=== PATIENT | female | born 1940 | race Caucasian/White ===

== ENCOUNTER 2017-12-16 13:17 | Emergency (ER) | payer MEDICARE ==
[~2017-12-16] VITALS: Ht 154.9 cm; Wt 49.9 kg
[~2017-12-16 13:17] MED LIST: GEMFIBROZIL600 MG PO; HYDROCHLOROTHIA25 MG PO; LEVOTHYROXINE88 MCG PO; LOVASTATIN20 MG PO; METOPROLOL TART25 MG PO; OMEPRAZOLE20 MG PO; POTASSIUM CHLO10 ME1 PO; SPIRONOLACTONE50 MG PO
== END 2017-12-16 14:54 | disposition home or self-care (01) ==
LOC: ED 13:17
DX: S86.911A Strain of unspecified muscle(s) and tendon(s) at lower leg level, right leg, initial encounter (principal); E11.9 Type 2 diabetes mellitus without complications; Z88.5 Allergy status to narcotic agent; Z79.899 Other long term (current) drug therapy; X50.9XXA Other and unspecified overexertion or strenuous movements or postures, initial encounter
CPT/HCPCS: 73560; 99283

== ENCOUNTER 2018-06-27 18:26 | Emergency (ER) | payer MEDICARE ==
[~2018-06-27] VITALS: Ht 154.9 cm; Wt 49.9 kg
[2018-06-27] MEDS ORDERED: CEPHALEXIN500 MG PO (19:13)
== END 2018-06-27 19:28 | disposition home or self-care (01) ==
LOC: ED 18:26
DX: T63.441A Toxic effect of venom of bees, accidental (unintentional), initial encounter (principal); E11.9 Type 2 diabetes mellitus without complications; Z88.5 Allergy status to narcotic agent; Z79.899 Other long term (current) drug therapy
CPT/HCPCS: 99282

== ENCOUNTER 2018-07-07 23:11 | Emergency (ER) | payer MEDICARE ==
--- OUTSIDE RECORDS SUMMARY | ~2018-07-07 | XMS | Encounter Summary ---
Demographics + + + | Address | [address] | | | [place] [address] | + + + | Home Phone | | + + + | Preferred Language | Unknown | + + + | Marital Status | | + + + | Latter Day Affiliation | 1077 | + + + | Race | Unknown | + + + | Ethnic Group | Unknown | + + + Author + + + | Author | [facility] | | | and [place] | + + + | Organization | [facility] | | | and [place] | + + + | Address | Unknown | + + + | Phone | Unavailable | + + + Support + + +---------+ + | Name | Relationship | Address | Phone | + + +---------+ + | Dudley,William | ECON | Unknown | | + + +---------+ + | Yohannes Adorno | ECON | Unknown | | + + +---------+ + Care Team Providers + +------+ + | Care Family Law Specialist Name | Role | Phone | + +------+ + | Yair Gleason MD | PCP | | + +------+ + Reason for Visit + + + | Reason | Comments | + + + | Follow-up, Office | | | Visit | | + + + Encounter Details +--------+ + + + + | Date | Type | Department | Care Team | Description | +--------+ + + + + | 06/15/ | Telephone | [facility] | Garth Vinson MD | Follow-up, Office | | 2018 | | HOSPITAL NEUROLOGY | [address] | Visit | | | | CLIN[address] | [place] | | | | | [address] [place], | [phone] | | | | | [place] [address] | | | | | | [phone] | | | +--------+ + + + [...] + +---------+ + | Alcohol Use | Drinks/We | oz/Week | Comments | | | ek | | | + + +---------+ + | No | | | | + + +---------+ + + + + | Sex Assigned at | Date Recorded | | | | + + + | Not on file | | + + + as of this encounter Plan of Treatment +--------+---------+ + + + | Date | Type | Specialty | Care Team | Description | +--------+---------+ + + + | 08/03/ | Office | Neurology | Garth Vinson MD | | | 2018 | Visit | | [address] | | | | | | [place] | | | | | | [address] | | | | | | | | +--------+---------+ + + + as of this encounter Visit Diagnoses Not on filein this encounter"
--- OUTSIDE RECORDS SUMMARY | ~2018-07-07 | XMS | Encounter Summary ---
Demographics + + + | Address | [address] | | | [place] [address] | + + + | Home Phone | | + + + | Preferred Language | Unknown | + + + | Marital Status | | + + + | Methodist Affiliation | 1077 | + + + | Race | Unknown | + + + | Ethnic Group | Unknown | + + + Author + + + | Author | [facility] | | | and [place] | + + + | Organization | [facility] | | [...] Team Providers + +------+ + | Care Order Administrator Name | Role | Phone | + [...] | | | [address] [place], | [phone] | | | | | [place] [address] | | | | | | [phone] | | | +--------+ + + + [...]
--- OUTSIDE RECORDS SUMMARY | ~2018-07-07 | XMS | Clinical Summary ---
Demographics + + + | Address | [address] | | | [place] [address] | + + + | Home Phone [...] Team Providers + +------+ + | Care Harness Brusher Name | Role | Phone | + +------+ + | Yair Gleason MD | PP | | + +------+ + Allergies + + + + + + | Active Allergy | Reactions | Severity | Noted | Comments | | | | | Date | | + + + + + + | Amoxicillin | | | | Other reaction(s): | | | | | | No Reaction | | | | | | Indicated | + + + + + + | Codeine | | Medium | 08/27/20 | Other reaction(s): | | | | | 14 | Other (See | | | | | | Comments) unknown | + + + + + + | Morphine | | | | Other reaction(s): | | | | | | No Reaction | | | | | | Indicated | + + + + + + | Sulfa Antibiotics | | | | Other reaction(s): | | | | | | No Reaction | | | | | | Indicated | + + + + + + Current Medications + + +--------+---------+------+------+-------+ | Prescription | Sig. | Disp. | Refills | Star | End | Statu | | | | | | t | Date | s | | | | | | Date | | | + + +--------+---------+------+------+-------+ | aspirin 325 mg EC | Take by mouth. | | | 06/ | | Activ | | tablet | | | | /20 | | e | | | | | | 13 | | | + + +--------+---------+------+------+-------+ | fish oil 1,000 mg | Take by mouth. | | | 10/3 | | Activ | | capsule | | | | /20 | | e | | | | | | 13 | | | + + +--------+---------+------+------+-------+ | | | | | 01/2 | | Activ | | hydroCHLOROthiazide | | | | 2/20 | | e | | 25 mg tablet | | | | 18 | | | + + +--------+---------+------+------+-------+ | levothyroxine | Take 88 mcg by | | | | | Activ | | (SYNTHROID) 88 mcg | mouth. | | | | | e | | tablet | | | | | | | + + +--------+---------+------+------+-------+ | lovastatin | | | | 12/2 | | Activ | | (MEVACOR) 20 mg | | | | 9/20 | | e | | tablet | | | | 17 | | | + + +--------+---------+------+------+-------+ | metFORMIN | | | | 01/0 | | Activ | | (GLUCOPHAGE) 500 mg | | | | 2/20 | | e | | tablet | | | | 18 | | | + + +--------+---------+------+------+-------+ | metoprolol | Take by mouth. | | | 08/0 | | Activ | | tartrate (LOPRESSOR) | | | | 8/20 | | e | | 25 mg tablet | | | | 12 | | | + + +--------+---------+------+------+-------+ | potassium chloride | | | | 12/2 | | Activ | | (KLOR-CON) 10 mEq | | | | 8/20 | | e | | CR tablet | | | | 17 | | | + + +--------+---------+------+------+-------+ | omeprazole | | | | 01/0 | | Activ | | (PRILOSEC) 20 mg | | | | 2/20 | | e | | capsule | | | | 18 | | | + + +--------+---------+------+------+-------+ | topiramate | Take 1 tablet by | 60 | 1 | 08/1 | | Activ | | (TOPAMAX) 25 mg | mouth 2 times daily. | tablet | | 5/20 | | e | | tabletIndications: | | | | 18 | | | | Complex partial | | | | | | | | seizures with | | | | | | | | consciousness | | | | | | | | impaired (HCC) | | | | | | | + + +--------+---------+------+------+-------+ | topiramate | TAKE ONE TABLET BY | 60 | 5 | 02/0 | 08 | Disco | | (TOPAMAX) 25 mg | MOUTH TWICE A DAY | tablet | | 03/15 | 03/15 | ntinu | | tabletIndications: | | | | 18 | 18 | ed | | Complex partial | | | | | | | | seizures with | | | | | | | | consciousness | | | | | | | | impaired ([facility]) | | | | | | | + + +--------+---------+------+------+-------+ Active Problems + + + | Problem | Noted Date | + + + | Osteoarthritis of right knee | 01/22/2018 | + + + | Diabetes mellitus, type 2 ([facility]) | 11/24/2017 | + + + | Hypothyroid | 11/24/2017 | + + + | Transient ischemic attack | 03/06/2017 | + + + | 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) | 09/12/2014 | + + + | GERD (gastroesophageal reflux disease) | 08/27/2014 | + + + | Seizure (HCC) [...] + + | 06/15/ | Telephone | | Garth Vinson MD | Follow-up, Office | | 2017 | | | | Visit | +--------+ + + + + | 06/10/ | Telephone | | Garth Vinson MD | Medication Related | | 2017 | | | | | +--------+ + + + + from [...] + + + | Blood Pressure | 132/62 | 01/22/20181448 PDT | + + + + | Pulse | 83 | 01/22/20181448 PDT | + + + + | Temperature | - | - | + + + + | Respiratory Rate | 16 | 01/22/20181448 PDT | + + + + | Oxygen Saturation | 99% | 01/22/20181448 PDT | + + + + | Inhaled Oxygen | - | - | | Concentration | | | + + + + | Weight | 52.2 kg (115 lb) | 01/22/20181448 PDT | + + + + | Height | 154.9 cm (5' 1") | 01/22/20181448 PDT | + + + + | Body Mass Index | 21.73 | 01/22/2018 1449 PDT | + + + + Plan of Treatment +--------+---------+ + + + | Date | Type | Specialty | Care Team | Description | +--------+---------+ + + + | 08/03/ | Office | | Garth Vinson MD | | | 2017 | Visit | | [address] | | | | | | [place] | | | | | | [address] | | | | | | | | +--------+---------+ + + + + + + + + | Health Maintenance | Due Date | Last Done | Comments | + + + + + | Diabetic Eye Exam | | | | | (Bi-Annually) | 8 | | | + + + + + | Diabetic Foot Exam | | | | | | 8 | | | + + + + + | Vaccine: | | | | | Dtap/Tdap/Td (1 - | 9 | | | | Tdap) | | | | + + + + + | Vaccine: Zoster (1 | | | | | of 2) | 0 | | | + + + + + | Vaccine: | | | | | Pneumococcal 65+ | 5 | | | | Low/Medium Risk (1 | | | | | of 2 - PCV13) | | | | + + + + + | Hemoglobin A1c Q3 | | 09/12/2014 | | | Months | 5 | | | + + + + + | Microalbumin | | | | | Screening | 7 | | | + + + + + | Vaccine: Influenza | | | | | (#1) | 8 | | | + + + + + | Colorectal Cancer | | | Postponed from | | Screening | 3 | | 1957 (Plan in | | (Colonoscopy) | | | Place) | + + + + + Results Not on filefrom Last 3 Months Insurance + +--------+ +--------+-------+---------+ | Payer | Benefi | Subscriber | Type | Phone | Address | | | t Plan | ID | | | | | | / | | | | | | | Group | | | | | + +--------+ +--------+-------+---------+ | [employer] | [employer] | [id number] | Medica | | | | | HEALTH | | re | | | | | MDCR | | | | | + +--------+ +--------+-------+---------+ + +--------+ +--------+ + + | Guarantor Name | Accoun | Relation to | Date | Phone | Billing Address | | | t Type | Patient | of | | | | | | | | | | + +--------+ +--------+ + + | CRISTINA DONNELLY | Person | Self | [birth year] | Home: | [address] | | | al/Fam | | 1941 | [phone] | [place] [address] | | | ava | | | [phone] | | + +--------+ +--------+ + +
--- OUTSIDE RECORDS SUMMARY | ~2018-07-07 | XMS | Clinical Summary ---
Demographics + + + | Address | [address] | | | [place] [address] | + + + | Home Phone | | + + + | Preferred Language | Unknown | + + + | Marital Status | | + + + | Holiness Affiliation | 1038 | + + + | Race | Unknown | + + + | Ethnic Group | Unknown | + + + Author + + + | Author | [facility] | + + + | Organization | [facility] | + + + | Address | Unknown | + + + | Phone | Unavailable | + + + Support + + + + + | Name | Relationship | Address | Phone | + + + + + | Cristina Donnelly | ECON | [address] | | | | | [place], [place] | | | | | [address] | | + + + + + Care Team Providers + +------+ + | Care Primary Operator Name | Role | Phone | [...] | + + + | Rash, drug; keramonera | 08/29/2014 | + + + | [...] | MA - GENERIC | MA-GEN | [id number] | Medica | | | | | [...] Person | Self | [birth year] | [address] [facility] | | | al/[place]ron | | 1941 | | [place], [place] | | | ava | | | | [address] | + +--------+ +--------+-------+ +"
--- OUTSIDE RECORDS SUMMARY | ~2018-07-07 | XMS | Clinical Summary ---
Demographics + + + | Address | [address] [facility] [facility] | | | [place] [address] | + + + | Home Phone | | + + + | Preferred Language | Unknown | + + + | Marital Status | | + + + | Baptist Affiliation | 1038 | + + + | Race | Unknown | + + + | Ethnic Group | Unknown | + + + Author + + + | Author | [facility] [employer] [facility] | + + + | Organization | [facility] | + + + | Address | Unknown | + + + | Phone | Unavailable | + + + Support + + + + + | Name | Relationship | Address | Phone | + + + + + | Cristina Donnelly | ECON | [address] | | | | | [place], [place] | | | | | [address] | | + + + + + Care Team Providers + +------+ + | Care Gravity Manager Name | Role | Phone | [...] | MA - GENERIC | MA-GEN | [id number] | Medica | | | | | [...] | Self | [birth year] | [address] [facility] | | | al/[place] | | 1941 | | [place], [place] | | | ava | | | | [phone] | + +--------+ +--------+-------+ +"
--- OUTSIDE RECORDS SUMMARY | ~2018-07-07 | XMS | Encounter Summary ---
Demographics + + + | Address | [address] | | | [place] [address] | + + + | Home Phone | | + + + | Preferred Language | Unknown | + + + | Marital Status | | + + + | Restoration Affiliation | 1077 | + + + | Race | Unknown | + + + | Ethnic Group | Unknown | + + + Author + + + | Author | [facility] | | | and [place] | + + + | Organization | [facility] | | | [...] Team Providers + +------+ + | Care Hang Gliding Instructor Name | Role | Phone | [...] [address] | | | | | [place] [address] | | | | | | [phone] | | | +--------+ + + + [...] [place] | | | | | | [address] | | | | | | | | +--------+---------+ + + + as of this encounter Visit Diagnoses + + | Diagnosis | + + | 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
--- OUTSIDE RECORDS SUMMARY | ~2018-07-07 | XMS | Encounter Summary ---
Demographics + + + | Address | [address] | | | [place] [address] | + + + | Home Phone [...] Providers + +------+ + | Care Retail Support Manager Name | Role | Phone | [...] [address] | | | | | [place] [address] | | | | | | [phone] | | | +--------+ + + + [...] [place] | | | | | | [address] | | | | | | | [...]
--- OUTSIDE RECORDS SUMMARY | ~2018-07-07 | XMS | Clinical Summary ---
Demographics + + + | Address | [address] | | | [place] [address] | + + + | Home Phone [...] Team Providers + +------+ + | Care Sports Marketing Coordinator Name | Role | Phone | [...] | | | | | | impaired ([facility]) | | | | | | | + + +--------+---------+------+------+-------+ Active Problems + + + | Problem | Noted Date | + + + | Osteoarthritis of right knee | 01/22/2018 | + + + | Diabetes mellitus, type 2 ([facility]) | 11/24/2017 | + + [...] [place] | | | | | | [address] | | | | | | | [...] | [employer] | MODA | [id number] | Medica | | | | | [...] al/Fam | | 1941 | [phone] | [place] [address] | | | ava | | | [phone] | | + +--------+ +--------+ + +
[~2018-07-07 23:11] MED LIST changes: +CEPHALEXIN500 MG PO
--- OUTSIDE RECORDS SUMMARY | 2018-07-07 23:14 | XMS ---
PreManage Notification: JHON DONNELLY Security Ip/Mosaic Technician Events No recent Security Events currently on file CRITERIA MET - ELZBIETA [facility] - 2 Visits in 30 Days CARE PROVIDERS ANGIE GLEASON [facility] 06/30/2018-Current LIANNA PHONE: [phone] Angie Gleason MD Primary Care Current PHONE: Unknown catie Case or Machinery Dismantler Current PHONE: Unknown Racheal has no Care Guidelines for this patient. E.D. VISIT COUNT (12 MO.) 3 [facility] TOTAL 3 NOTE: Visits indicate total known visits. ED/UCC VISIT TRACKING (12 MO.) 07/07/2018 23:11 [facility] [place] TYPE: Emergency COMPLAINT: - FALL 06/27/2018 18:26 [facility] [place] TYPE: Emergency COMPLAINT: - BEE STING- R ARM DIAGNOSES: - Toxic effect of venom of bees, accidental (unintentional), initial encounter - Other chcf (current) drug therapy - Allergy status to narcotic agent status - Other specified soft tissue disorders - Type 2 diabetes mellitus without complications 12/16/2017 13:[address] [facility] [place] TYPE: Emergency COMPLAINT: - R KNEE PAIN/NON INJURY DIAGNOSES: - Other exterminator (current) drug therapy - Allergy status to narcotic agent status - OTHER AND UNSPECIFIED OVREXRTN OR STRNOUS MOVE/PST - Other and unspecified overexertion or strenuous movements or postures, initial encounter - Type 2 diabetes mellitus without complications - Pain in right knee - Strain of unspecified muscle(s) and tendon(s) at lower leg level, right leg, initial encounter INPATIENT VISIT TRACKING (12 MO.) No inpatient visits to display in this time frame [id number]
[2018-07-07] MEDS ORDERED: ASPIRIN325 MG PO (23:46)
[2018-07-07] MEDS ORDERED: METFORMIN HCL500 MG PO (23:47)
[2018-07-08] MEDS ORDERED: NORCO 5-325 TA1 EACH PO (02:06)
== END 2018-07-08 02:35 | disposition home or self-care (01) ==
LOC: ED 23:11
DX: S09.90XA Unspecified injury of head, initial encounter (principal); S16.1XXA Strain of muscle, fascia and tendon at neck level, initial encounter; S00.01XA Abrasion of scalp, initial encounter; S30.0XXA Contusion of lower back and pelvis, initial encounter; E11.9 Type 2 diabetes mellitus without complications; Z88.5 Allergy status to narcotic agent; Z79.82 Long term (current) use of aspirin; Z79.899 Other long term (current) drug therapy; Z79.84 Long term (current) use of oral hypoglycemic drugs; W10.9XXA Fall (on) (from) unspecified stairs and steps, initial encounter
CPT/HCPCS: 70450; 72125; 72170; 96374; 96375; 99283; J2405; J3010

== ENCOUNTER 2019-01-04 22:36 | Emergency (ER) | payer MEDICARE ==
[~2019-01-04] VITALS: Ht 154.9 cm; Wt 49.9 kg
[~2019-01-04 22:36] MED LIST changes: +ASPIRIN325 MG PO; +METFORMIN HCL500 MG PO; +NORCO 5-325 TA1 EACH PO
--- OUTSIDE RECORDS SUMMARY | 2019-01-04 22:40 | XMS ---
PreManage Notification: JHON DONNELLY Security Quality Control Assessor Events No recent Security Events currently on file CRITERIA MET - ELZBIETA [facility] - 2 Visits in 30 Days CARE PROVIDERS Yair Gleason MD [facility] Current PHONE: Unknown Yair Gleason MD Primary Care Current PHONE: Unknown ortammy Case or Detention Worker Current PHONE: Unknown Racheal has no Care Guidelines for this patient. E.D. VISIT COUNT (12 MO.) 4 JARROD Ortega TOTAL 4 NOTE: Visits indicate total known visits. ED/UCC VISIT TRACKING (12 MO.) 01/04/2019 22:37 [facility] [place] TYPE: Emergency COMPLAINT: - POST FALL/ALT LOC 01/03/2019 11:44 [facility] [place] TYPE: Emergency COMPLAINT: - FALL 07/07/2018 23:11 [facility] [place] TYPE: Emergency COMPLAINT: - FALL DIAGNOSES: - Type 2 diabetes mellitus without complications - intermediate accountant (current) use of oral hypoglycemic drugs - Fall (on) (from) unspecified stairs and steps, initial encounter - Headache - Strain of muscle, fascia and tendon at neck level, initial encounter - intermediate accountant (current) use of aspirin - Unspecified injury of head, initial encounter - Other longterm (current) drug therapy - Allergy status to narcotic agent status - Abrasion of scalp, initial encounter - Contusion of lower back and pelvis, initial encounter 06/27/2018 18:26 [facility] [place] TYPE: Emergency COMPLAINT: - BEE STING- R ARM DIAGNOSES: - Toxic effect of venom of bees, accidental (unintentional), initial encounter - Other longterm (current) drug therapy - Allergy status to narcotic agent status - Other specified soft tissue disorders - Type 2 diabetes mellitus without complications INPATIENT VISIT TRACKING (12 MO.) No inpatient visits to display in this time frame [id number]
[2019-01-05] MEDS ORDERED: BACTRIM DS TAB1 EACH PO (04:26)
--- NOTE | 2019-01-05 07:53 | EKG ---
[facility] [address] [place] [address] Signed Normal sinus rhythm Normal ECG No previous ECGs available Confirmed by MARLEN MAX MD ([id number]) on 01/05/2019 7:53:07 AM Electronically Signed By: MARLEN MAX MD 01/05/19 0753 PATIENT NAME: JHON DONNELLY Electrocardiogram DATE OF : 38 PHYSICIAN: MARLEN MAX MD REPORT #: [id number] REPORT IS CONFIDENTIAL AND NOT TO BE RELEASED WITHOUT AUTHORIZATION
== END 2019-01-05 06:07 | disposition home or self-care (01) ==
LOC: ED 22:36
DX: S82.002A Unspecified fracture of left patella, initial encounter for closed fracture (principal); S00.83XA Contusion of other part of head, initial encounter; S80.01XA Contusion of right knee, initial encounter; N39.0 Urinary tract infection, site not specified; E11.9 Type 2 diabetes mellitus without complications; Z90.710 Acquired absence of both cervix and uterus; Z88.5 Allergy status to narcotic agent; Z79.899 Other long term (current) drug therapy; Z79.84 Long term (current) use of oral hypoglycemic drugs; Z79.82 Long term (current) use of aspirin; W18.30XA Fall on same level, unspecified, initial encounter
CPT/HCPCS: 71045; 73700; 80053; 81001; 84484; 85025; 93005; 93010; 96365; 99285-25; J0696

== ENCOUNTER 2019-04-24 19:46 | Emergency (ER) | payer MEDICARE ==
[~2019-04-24] VITALS: Ht 157.5 cm; Wt 49.4 kg
[~2019-04-24 19:46] MED LIST changes: +BACTRIM DS TAB1 EACH PO
== END 2019-04-24 22:41 | disposition home or self-care (01) ==
LOC: ED 19:46
DX: R56.9 Unspecified convulsions (principal); E11.9 Type 2 diabetes mellitus without complications; Z90.49 Acquired absence of other specified parts of digestive tract; Z90.710 Acquired absence of both cervix and uterus; Z79.82 Long term (current) use of aspirin; Z79.899 Other long term (current) drug therapy; Z79.84 Long term (current) use of oral hypoglycemic drugs
CPT/HCPCS: 70450; 80053; 81001; 83735; 85025; 99285-25; G0480

== ENCOUNTER 2019-06-21 12:13 | Emergency (ER) | payer MEDICARE ==
[~2019-06-21] VITALS: Ht 154.9 cm; Wt 47.6 kg
[2019-06-21] MEDS ORDERED: TROKENDI XR25 MG PO (12:25)
[2019-06-21] MEDS ORDERED: GLUCOPHAGE500 MG (12:25)
== END 2019-06-21 15:30 | disposition home or self-care (01) ==
LOC: ED 12:13
DX: T63.441A Toxic effect of venom of bees, accidental (unintentional), initial encounter (principal); Z91.030 Bee allergy status; Z88.5 Allergy status to narcotic agent
CPT/HCPCS: 96361; 96374; 96375; 96376; 99282-25; J1100; J1200; J2405; J7030

== ENCOUNTER 2019-09-12 15:07 | Emergency (ER) | payer MEDICARE ==
[~2019-09-12] VITALS: Ht 154.9 cm; Wt 47.6 kg
--- OUTSIDE RECORDS SUMMARY | ~2019-09-12 | XMS | Encounter Summary ---
Demographics + + + | Address | [address] | | | [place] [address] | + + + | Home Phone | | + + + | Preferred Language | Unknown | + + + | Marital Status | | + + + | Adventist Affiliation | 1077 | + + + | Race | Unknown | + + + | Ethnic Group | Unknown | + + + Author + + + | Author | [facility] | | | and [place] | + + + | Organization | [facility] | | | and [place] | + + + | Address | Unknown | + + + | Phone | Unavailable | + + + Support + + +---------+ + | Name | Relationship | Address | Phone | + + +---------+ + | William Buckner | ECON | Unknown | | + + +---------+ + | Yohannes Adorno | ECON | Unknown | | + + +---------+ + Care Team Providers + +------+ + | Care Leather Patcher Name | Role | Phone | + +------+ + | Yair Gleason MD | PCP | | + +------+ + Reason for Visit + + + | Reason | Comments | + + + | Medication Refill | | + + + Encounter Details +--------+ + + + + | Date | Type | Department | Care Team | Description | +--------+ + + + + | 07/13/ | Telephone | [facility] | Garth Vinson MD | Medication Refill | | 2017 | | HOSPITAL NEUROLOGY | [address] | | | | | CLIN[address] | [place] | | | | | [address] [place], | [address] | | | | | [place] [address] | | | | | | [phone] | | | +--------+ + + + [...] on file | | + + + + + + + | Job Start Date | Occupation | Industry | + + + + | Not on file | Not on file | Not on file | + + + + + + + + | Travel History | Travel Start | Travel End | + + + + + + | No recent travel history available. | + + documented as of this encounter Plan of Treatment +--------+---------+ + + + | Date | Type | Specialty | Care Team | Description | +--------+---------+ + + + | 11/11/ | Office | Neurology | Kathie, | | | 2020 | Visit | | [address] | | | | | | [address] [place], | | | | | | [place] [address] | | | | | | [phone] | | | | | | | | +--------+---------+ + + + | 05/08/ | Office | Neurology | Garth Vinson MD | | | 2020 | Visit | | [address] | | | | | | [place] | | | | | | [address] | | | | | | | | +--------+---------+ + + + documented as of this encounter Visit Diagnoses + + | Diagnosis | + + | 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
--- OUTSIDE RECORDS SUMMARY | ~2019-09-12 | XMS | Encounter Summary ---
Demographics + + + | Address | [address] | | | [place] [address] | + + + | Home Phone | | + + + | Preferred Language | Unknown | + + + | Marital Status | | + + + | Scientologist Affiliation | 1077 | + + + | Race | Unknown | + + + | Ethnic Group | Unknown | + + + Author + + + | Author | [facility] | | | and [place] | + + + | Organization | [facility] | | [...] Team Providers + +------+ + | Care Tent Finisher Name | Role | Phone | + +------+ + PCP | Unavailable | + +------+ + Encounter Details +--------+ + + + + | Date | Type | Department | Care Team | Description | +--------+ + + + + | 03/10/ | Hospital | [facility] | Garth Vinson MD | | | 2011 | Encounter | [facility] | [address] | | | | | [address] | [place], [place] | | | | | [place] | [address] | | | | | [address] | | | | | | [phone] | | | +--------+ + + + [...] | Neurology | Kathie, | | | 2019 | Visit | | [address] | | | | | [address] [place], | | | | | | [place] [address] | | | | | | [phone] | | | | | | | | +--------+---------+ + + + | 05/08/ | Office | Neurology | Garth Vinson MD | | | 2019 | Visit | | [address] | | | | | | [place], [place] | | | | | | [address] | | | | | | | | +--------+---------+ + + + documented as of this encounter Visit Diagnoses Not on filedocumented in this encounter"
--- OUTSIDE RECORDS SUMMARY | ~2019-09-12 | XMS | Encounter Summary ---
Demographics + + + | Address | [address] | | | [place] [address] | + + + | Home Phone | | + + + | Preferred Language | Unknown | + + + | Marital Status | | + + + | Hindu Affiliation | 1077 | + + + | Race | Unknown | + + + | Ethnic Group | Unknown | + + + Author + + + | Author | [facility] | | | and [place] | + + + | Organization | [facility] | | | and [...] Team Providers + +------+ + | Care Supervisor Carpenters Name | Role | Phone | + +------+ + PCP | Unavailable | + +------+ + Encounter Details +--------+ + + + + | Date | Type | Department | Care Team | Description | +--------+ + + + + | 08/17/ | Hospital | [facility] | Garth Vinson MD | | | 2012 | Encounter | [facility] | [address] | | | | | [facility] [address] | [place], [place] | | | | | [address] [facility], | [address] | | | | | [place] [address] | | | | | | [phone] | | | +--------+ + + + [...] | | | | | [address] [place], | | | | | | [place] [address] | | | | | | [phone] | | | | | | | | +--------+---------+ + + + | 05/08/ | Office | Neurology | Garth Vinson MD | | | 2019 | Visit | | [address] | | | | | | [place] | | | | | | [address] | | | | | | | | +--------+---------+ + + + documented as of this encounter Visit Diagnoses Not on filedocumented in this encounter"
--- OUTSIDE RECORDS SUMMARY | ~2019-09-12 | XMS | Encounter Summary ---
Demographics + + + | Address | [address] | | | [place] [address] | + + + | Home Phone | | + + + | Preferred Language | Unknown | + + + | Marital Status | | + + + | Restorationist Affiliation | 1077 | + + + | Race | Unknown | + + + | Ethnic Group | Unknown | + + + Author + + + | Author | [facility] | | | and [place] | + + + | Organization | [facility] | | | [...] Team Providers + +------+ + | Care Healthcare Administration Internship Name | Role | Phone | + +------+ + PCP | Unavailable | + +------+ + Encounter Details +--------+ + + + + | Date | Type | Department | Care Team | Description | +--------+ + + + + | 03/09/ | Hospital | [facility] | Garth Vinson MD | | | 2012 | Encounter | HOSPITAL RESPIRATORY | [address] | | | | | THERAPY [address] | [place] | | | | | [place] | [address] | | | | | [address] | | | | | | [phone] | | | +--------+ + + + [...] | | | | | | [place] [address] | | | | | | [phone] | | | | | | | | +--------+---------+ + + + | 05/08/ | Office | Neurology | Garth Vinson MD | | | 2019 | Visit | | [address] | | | | | | [place], [place] | | | | | | [address] | | | | | | | | +--------+---------+ + + + documented as of this encounter Visit Diagnoses Not on filedocumented in this encounter"
--- OUTSIDE RECORDS SUMMARY | ~2019-09-12 | XMS | Encounter Summary ---
Demographics + + + | Address | [address] | | | [place] [address] | + + + | Home Phone | | + + + | Preferred Language | Unknown | + + + | Marital Status | | + + + | Buddhist Affiliation | 1077 | + + + | Race | Unknown | + + + | Ethnic Group | Unknown | + + + Author + + + | Author | [facility] | | | and [place] | + + + | Organization | [facility] | | [...] Team Providers + +------+ + | Care Apparatus Operator Name | Role | Phone | + +------+ + PCP | Unavailable | + +------+ + Encounter Details +--------+ + + + + | Date | Type | Department | Care Team | Description | +--------+ + + + + | 11/02/ | Hospital | [facility] | [place], | | | 2014 | Encounter | [facility] | Hiro Mariano, | | | | | [facility] [address] | [address] | | | | | [address] [facility], | [facility], [place] | | | | | [place] [address] | [address] | | | | | [phone] | [phone] | | | | | | | | +--------+ + + + [...] | | | | | | [place] [address] | | | | | | [phone] | | | | | | | | +--------+---------+ + + + | 05/08/ | Office | Neurology | Garth Vinson MD | | | 2019 | Visit | | [address] | | | | | | [place] | | | | | | [address] | | | | | | | | +--------+---------+ + + + documented as of this encounter Visit Diagnoses Not on filedocumented in this encounter"
--- OUTSIDE RECORDS SUMMARY | ~2019-09-12 | XMS | Encounter Summary ---
Demographics + + + | Address | [address] | | | [place] [address] | + + + | Home Phone | | + + + | Preferred Language | Unknown | + + + | Marital Status | | + + + | Yazidi Affiliation | 1077 | + + + | Race | Unknown | + + + | Ethnic Group | Unknown | + + + Author + + + | Author | [facility] | | | and [place] | + + + | Organization | [facility] | | | and [...] Team Providers + +------+ + | Care Critical Power Install Technician Name | Role | Phone | + [...] | | | | [address] [facility], | [address] | | | | | [place] [address] | | | | | | [phone] | | | +--------+ + + + [...] | | | | | | [place] [address] | | | | | | [phone] | | | | | | | | +--------+---------+ + + + | 05/08/ | Office | Neurology | Garth Vinson MD | | | 2019 | Visit | | [address] | | | | | | [place] | | | | | | [id number] | | | | | | | | +--------+---------+ + + + documented as of this encounter Visit Diagnoses Not on filedocumented in this encounter"
--- OUTSIDE RECORDS SUMMARY | ~2019-09-12 | XMS | Encounter Summary ---
Demographics + + + | Address | [address] | | | [place] [address] | + + + | Home Phone | | + + + | Preferred Language | Unknown | + + + | Marital Status | | + + + | Mosque Affiliation | 1077 | + + + | Race | Unknown | + + + | Ethnic Group | Unknown | + + + Author + + + | Author | [facility] | | | and [place] | + + + | Organization | [facility] | | | [...] Team Providers + +------+ + | Care Firewall Engineer Name | Role | Phone | + [...] | | | [place], [place] | [address] | | | | | [address] | [phone] | | | | | [phone] | | | +--------+ + + + [...] | | | | | | [place] [address] | | | | | | [phone] | | | | | | | | +--------+---------+ + + + | 05/08/ | Office | Neurology | Garth Vinson MD | | | 2019 | Visit | | [address] | | | | | | [place] | | | | | | [address] | | | | | | | | +--------+---------+ + + + documented as of this encounter Visit Diagnoses Not on filedocumented in this encounter"
--- OUTSIDE RECORDS SUMMARY | ~2019-09-12 | XMS | Encounter Summary ---
Demographics + + + | Address | [address] | | | [place] [address] | + + + | Home Phone | | + + + | Preferred Language | Unknown | + + + | Marital Status | | + + + | Rastafari Affiliation | 1077 | + + + | Race | Unknown | + + + | Ethnic Group | Unknown | + + + Author + + + | Author | [facility] | | | and [place] | + + + | Organization | [facility] | | | [...] Team Providers + +------+ + | Care Nurse Outreach Case Manager Name | Role | Phone | + +------+ + | Yair Gleason MD | PCP | | + +------+ + Encounter Details +--------+ + + + + | Date | Type | Department | Care Team | Description | +--------+ + + + + | 07/21/ | Hospital | [facility] | Yair Gleason, | Low back pain, | | 2018 | Encounter | HOSPITAL XRAY [address] | MD [address] | unspecified back | | | | [address] [place] | [place], [place] | pain laterality, | | | | [place], [place] | [address] | unspecified | | | | [address] | [phone] | chronicity, with | | | | [phone] | | sciatica presence | | | | | | unspecified | +--------+ + + + + Social [...] +---------+ + + | topiramate | Take 1 tablet by | 120 | 0 | 07/20/20 | | | (TOPAMAX) 25 mg | mouth 2 times daily | tablet | | 18 | 8 | | tabletIndications: | for 30 days. 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) | | | | | | + + + +---------+ + + | traMADol (ULTRAM) | | | 0 | 07/21/20 | | | 50 mg tablet | | | | 18 | 9 | + + + +---------+ + + [...] | | | | | | [place] [address] | | | | | | [phone] | | | | | | | | +--------+---------+ + + + | 05/08/ | Office | Neurology | Garth Vinson MD | | | 2019 | Visit | | [address] | | | | | | [place], [place] | | | | | | [address] | | | | | | | | +--------+---------+ + + + documented as of this encounter Procedures + +--------+ + + + | Procedure Name | Priori | Date/Time | Associated Diagnosis | Comments | | | ty | | | | + +--------+ + + + | XR HIP LEFT 2-3 | Routin | 07/21/2018 | Low back pain, | Results for this | | VIEWS | e | 12:30 PM | unspecified back | procedure are in the | | | | PDT | pain laterality, | results section. | | | | | unspecified | | | | | | chronicity, with | | | | | | sciatica presence | | | | | | unspecified | | + +--------+ + + + | XR LUMBAR SPINE 2 [place] | Routin | 07/21/2018 | Low back pain, | Results for this | | 3 VW | e | 12:30 PM | unspecified back | procedure are in the | | | | PDT | pain laterality, | results section. | | | | | unspecified | | | | | | chronicity, with | | | | | | sciatica presence | | | | | | unspecified | | + +--------+ + + + documented in this encounter Results XR Lumbar Spine 2 or 3 Vw (07/21/2018 12:30 PM PDT) + + | Specimen | + + | | + + + + + | Impressions | Performed At | + + + | IMPRESSION: 1. No definite acute finding identified. 2. The bones | [facility] | | are diffusely demineralized. 3. Mild apparent endplate irregularity | | | multiple lumbar levels which may relate to the angle at which the | | | patient is imaged versus mild age indeterminate endplate compression | | | fracture. 4. Facet degenerative changes lower lumbar spine. | | | Dictated by: Conrado Benz | | + + + + + + | Narrative | Performed At | + + + | EXAMINATION: XR LUMBAR SPINE 2 OR 3 VW HISTORY: LOWER BACK | [facility] | | PAIN COMPARISON STUDY: Abdomen pelvis 03/11/2013. FINDINGS: | | | The bones are diffusely demineralized. Mild endplate irregularity | | | noted at L1 through L4. Facet sclerosis present L L3-4, L4-5, L5-S1. 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 The sacroiliac | | | joints are not widened. 5 bilateral hip prostheses partially imaged. | | | Surgical clips are noted right abdomen most commonly related to | | | gallbladder removal. | | + + + + -+ | Procedure Note | + -+ | Dileep, Rad Results In - 07/21/2018 12:51 PM PDT EXAMINATION:XR LUMBAR SPINE 2 OR 3 | | VWHISTORY:LOWER BACK PAINCOMPARISON STUDY:Abdomen pelvis 03/11/2013.FINDINGS:The bones | | are diffusely demineralized. Mild endplate irregularity noted at L1 through L4. Facet | | sclerosis present L L3-4, L4-5, L5-S1.Atherosclerosis aorta without aneurysm seen.The | | sacroiliac joints are not widened. 5 bilateral hip prostheses partially imaged. | | Surgical clips are noted right abdomen most commonly related to gallbladder | | removal.IMPRESSION: IMPRESSION:1. No definite acute finding identified.2. The bones are | | diffusely demineralized.3. Mild apparent endplate irregularity multiple lumbar levels | | which may relate to the angle at which the patient is imaged versus mild age | | indeterminate endplate compression fracture.4. 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 | | | |The sacroiliac joints are not widened. 5 bilateral hip prostheses partially imaged. Surgi yazan clips are noted right abdomen most commonly related to gallbladder removal. | | | |IMPRESSION: | |IMPRESSION: | |1. No definite acute finding identified. | |2. The bones are diffusely demineralized. | |3. Mild apparent endplate irregularity multiple lumbar levels which may relate to the angle at which the patient is imaged versus mild age indeterminate endplate compression fracture. | |4. Facet degenerative changes lower lumbar spine. | | | |Dictated by: Conrado Benz | | | | | + -+ + +---------+ + + | Performing | Address | City/State/Zipcode | Phone Number | | Organization | | | | + +---------+ + + | [facility] | | | | + +---------+ + + XR Hip Left 2-3 Views (07/21/2018 12:30 PM PDT) + + | Specimen | + + | | + + + + + | Impressions | Performed At | + + + | IMPRESSION: 1. No acute finding. 2. The bones are diffusely | [facility] | | demineralized. 3. Facet degenerative changes lower lumbar spine. 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 No periprostatic lucencies are | | | seen. The prostheses are non-cemented. The bones are diffusely | | | demineralized. The sacroiliac joints and symphysis pubis are not | | | widened. Facet degenerative changes are present L4-5, L5-S1. If | | | concern for acute fracture remains clinically follow-up images in 10 | | | to 14 days recommended. . | | + + + + + | Procedure Note | + + | Dileep, Rad Results In - 07/21/2018 12:52 PM PDT EXAMINATION:XR HIP LEFT 2-3 | | VIEWSHISTORY:LOWER BACK PAINCOMPARISON STUDY:Left hip 01/09/2010FINDINGS:Bilateral | | bipolar hip prostheses are present. No periprostatic lucencies are seen. The | | prostheses are non-cemented.The bones are diffusely demineralized. The sacroiliac | | joints and symphysis pubis are not widened.Facet degenerative changes are present L4-5, | | L5-S1.If concern for acute fracture remains clinically follow-up images in 10 to 14 days | | recommended. .IMPRESSION: IMPRESSION:1. No acute finding.2. The bones are diffusely | | demineralized.3. 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 No periprostatic lucencies are seen. The pr ostheses are non-cemented. | | | |The bones are diffusely demineralized. The sacroiliac joints and symphysis pubis are not w idened. | | | |Facet degenerative changes are present L4-5, L5-S1. | |If concern for acute fracture remains clinically follow-up images in 10 to 14 days recommen ded. . | | | |IMPRESSION: | |IMPRESSION: | |1. No acute finding. | |2. The bones are diffusely demineralized. | |3. Facet degenerative changes lower lumbar spine. | | | |Dictated by: Conrado Benz | | | | | + + + +---------+ + + | Performing | Address | City/State/Zipcode | Phone Number | | Organization | | | | + +---------+ + + | [facility] | | | | + +---------+ + + documented in this encounter Visit Diagnoses + + | Diagnosis | + + | Low back pain, unspecified back pain laterality, unspecified chronicity, with sciatica | | presence unspecified | + + documented in this encounter"
--- OUTSIDE RECORDS SUMMARY | ~2019-09-12 | XMS | Encounter Summary ---
Demographics + + + | Address | [address] | | | [place] [address] | + + + | Home Phone | | + + + | Preferred Language | Unknown | + + + | Marital Status | | + + + | Baptist Affiliation | 1077 | + + + | Race | Unknown | + + + | Ethnic Group | Unknown | + + + Author + + + | Author | [facility] | | | and [place] | + + + | Organization | [facility] | | | [...] Team Providers + +------+ + | Care Manager Field Investigations Name | Role | Phone | + +------+ + | Yair Gleason MD | PCP | | + +------+ + Reason for Visit + + + | Reason | Comments | + + + | Medication Related | | + + + Encounter Details +--------+ + + + + | Date | Type | Department | Care Team | Description | +--------+ + + + + | 07/20/ | Telephone | [facility] | Garth Vinson MD | Medication Related | | 2018 | | HOSPITAL NEUROLOGY | [address] | | | | | CLIN[address] | [place] | | | | | [address] [place], | [address] | | | | | [place] [address] | | | | | | [phone] | | | +--------+ + + + [...] | | | | | | [place] [address] | | | | | | [phone] | | | | | | | | +--------+---------+ + + + | 05/08/ | Office | Neurology | Garth Vinson MD | | | 2020 | Visit | | [address] | | | | | | [place] | | | | | | [address] | | | | | | | [...]
--- OUTSIDE RECORDS SUMMARY | ~2019-09-12 | XMS | Encounter Summary ---
Demographics + + + | Address | [address] | | | [place] [address] | + + + | Home Phone | | + + + | Preferred Language | Unknown | + + + | Marital Status | | + + + | Islam Affiliation | 1077 | + + + | Race | Unknown | + + + | Ethnic Group | Unknown | + + + Author + + + | Author | [facility] | | | and [place] | + + + | Organization | [facility] | | | and [place] | + + + | Address | Unknown | + + + | Phone | Unavailable | + + + Support + + +---------+ + | Name | Relationship | Address | Phone | + + +---------+ + | Williamaleax Buckner | ECON | Unknown | | + + +---------+ + | Yohannes Kyree | ECON | Unknown | | + + +---------+ + Care Team Providers + +------+ + | Care Pest Locator Name | Role | Phone | + +------+ + PCP | Unavailable | + +------+ + Encounter Details +--------+ + + + + | Date | Type | Department | Care Team | Description | +--------+ + + + + | 09/12/ | Hospital | [facility] | Garth Vinson MD | | | 2014 | Encounter | [facility] | [address] | | | | | [facility] [address] | [place], [place] | | | | | [address] [facility], | [address] | | | | | [place] [address] | | | | | | [phone] | | | +--------+ + + + [...] | | | | | | [place] [address] | | | | | | [phone] | | | | | | | | +--------+---------+ + + + | 05/08/ | Office | Neurology | Garth Vinson MD | | | 2019 | Visit | | [address] | | | | | | [place] | | | | | | [address] | | | | | | | | +--------+---------+ + + + documented as of this encounter Visit Diagnoses Not on filedocumented in this encounter"
--- OUTSIDE RECORDS SUMMARY | ~2019-09-12 | XMS | Encounter Summary ---
Demographics + + + | Address | [address] | | | [place] [address] | + + + | Home Phone | | + + + | Preferred Language | Unknown | + + + | Marital Status | | + + + | Confucianism Affiliation | 1077 | + + + | Race | Unknown | + + + | Ethnic Group | Unknown | + + + Author + + + | Author | [facility] | | | and [place] | + + + | Organization | [facility] | | | [...] Team Providers + +------+ + | Care Sterilization Tech Name | Role | Phone | + +------+ + PCP | Unavailable | + +------+ + Encounter Details +--------+ + + + + | Date | Type | Department | Care Team | Description | +--------+ + + + + | 03/26/ | Hospital | [facility] | Garth Vinson MD | | | 2012 | Encounter | HOSPITAL RESPIRATORY | [address] | | | | | THERAPY [address] | [place] | | | | | [place] | [address] | | | | | [address] | | | | | | [phone] | | | +--------+ + + + [...] | | | | | | [place] [address] | | | | | | [phone] | | | | | | | | +--------+---------+ + + + | 05/08/ | Office | Neurology | Garth Vinson MD | | | 2019 | Visit | | [address] | | | | | | [place], [place] | | | | | | [address] | | | | | | | | +--------+---------+ + + + documented as of this encounter Visit Diagnoses Not on filedocumented in this encounter"
--- OUTSIDE RECORDS SUMMARY | ~2019-09-12 | XMS | Encounter Summary ---
Demographics + + + | Address | [address] | | | [place] [address] | + + + | Home Phone | | + + + | Preferred Language | Unknown | + + + | Marital Status | | + + + | Yazidism Affiliation | 1077 | + + + [...] Team Providers + +------+ + | Care Electrical Engineer Mep Name | Role | Phone | + +------+ + PCP | Unavailable | + +------+ + Encounter Details +--------+ + + + + | Date | Type | Department | Care Team | Description | +--------+ + + + + | 11/02/ | Hospital | [facility] | [place], | | | 2014 | Encounter | [facility] | Hiro Mariano, | | | | | MEDICAL CL[facility] [address] | [address] | | | | | [address] [facility], | [facility], [place] | | | | | [place] [address] | [address] | | | | | [phone] | [phone] | | | | | | | [...] | | | | | | [place] [address] | | | | | | [phone] | | | | | | | | +--------+---------+ + + + | 05/08/ | Office | Neurology | Garth Vinson MD | | | 2019 | Visit | | [address] | | | | | | [place] | | | | | | [address] | | | | | | | | +--------+---------+ + + + documented as of this encounter Visit Diagnoses Not on filedocumented in this encounter"
--- OUTSIDE RECORDS SUMMARY | ~2019-09-12 | XMS | Encounter Summary ---
Demographics + + + | Address | [address] | | | [place] [address] | + + + | Home Phone | | + + + | Preferred Language | Unknown | + + + | Marital Status | | + + + | Amish Affiliation | 1077 | + + + [...] Team Providers + +------+ + | Care Hearth Feeder Name | Role | Phone | + [...] | | | [place], [place] | [address] | | | | | [address] | [phone] | | | | | [phone] | | | +--------+ + + + [...] | | | | | | [place] [address] | | | | | | [phone] | | | | | | | | +--------+---------+ + + + | 05/08/ | Office | Neurology | Garth Vinson MD | | | 2019 | Visit | | [address] | | | | | | [place] | | | | | | [address] | | | | | | | | +--------+---------+ + + + documented as of this encounter Visit Diagnoses Not on filedocumented in this encounter"
--- OUTSIDE RECORDS SUMMARY | ~2019-09-12 | XMS | Encounter Summary ---
Demographics + + + | Address | [address] | | | [place] [address] | + + + | Home Phone | | + + + | Preferred Language | Unknown | + + + | Marital Status | | + + + | Mandaeism Affiliation | [id number] | + + + | Race | Unknown | + + + | Ethnic Group | Unknown | + + + Author + + + | Author | [facility] | | | and [place] | + + + | Organization | [facility] | | | and [place] | + + + | Address | Unknown | + + + | Phone | Unavailable | + + + Support + + +---------+ + | Name | Relationship | Address | Phone | + + +---------+ + | William Dudley | ECON | Unknown | | + + +---------+ + | Yohannes Adorno | ECON | Unknown | | + + +---------+ + Care Team Providers + +------+ + | Care Core Winder Machine Operator Name | Role | Phone | + +------+ + | Yair Gleason MD | PCP | | + +------+ + Reason for Referral Self-referral (Routine) +--------+ + + + + + | Status | Reason | Specialty | Diagnoses / | Referred By | Referred To | | | | | Procedures | Contact | Contact | +--------+ + + + + + | Closed | Specialty | Physical | Diagnoses | Vinson, | [facility] | | | Services | Therapy | Gait | Garth Carrillo, | HOSPITAL | | | Required | | disorder | MD [address] | PHYSICAL | | | | | | [address], | TH[address]AP[address] | | | | | | [address] | [place] | | | | | | [place], [place] | [place], [place] | | | | | | [address] | [address] | | | | | | Phone: | Phone: | | | | | | [phone] | [phone] | | | | | | Fax: | Fax: | | | | | | [phone] | [phone] | +--------+ + + + + + Reason for Visit + + + | Reason | Comments | + + + | Follow-up | seizures/strokes | + + + Encounter Details +--------+---------+ + + + | Date | Type | Department | Care Team | Description | +--------+---------+ + + + | 05/18/ | Office | [facility] | Garth Vinson MD | Seizure (HCC) | | 2019 | Visit | [facility] | [address] | (Primary Dx); Gait | | | | CLINIC [address] | [place]IE [address]HE[place] | disorder; Complex | | | | DR [address], | [address] | partial seizures | | | | [place] [address] | | with consciousness | | | | [phone] | | impaired ([facility]LY [facility]); | | | | | | Neurologic gait | | | | | | disorder | +--------+---------+ + + + Social History + +-------+ [...] + + documented as of this encounter Last Filed Vital Signs + + + + + | Vital Sign | Reading | Time Taken | Comments | + + + + + | Blood Pressure | 138/70 | 05/18/2019 3:32 PM | | | | | PDT | | + + + + + | Pulse | 80 | 05/18/2019 3:32 PM | | | | | PDT | | + + + + + | Temperature | - | - | | + + + + + | Respiratory Rate | 20 | 05/18/2019 3:32 PM | | | | | PDT | | + + + + + | Oxygen Saturation | 99% | 05/18/2019 3:32 PM | | | | | PDT | | + + + + + | Inhaled Oxygen | - | - | | | Concentration | | | | + + + + + | Weight | 47.2 kg (104 lb) | 05/18/2019 3:32 PM | | | | | PDT | | + + + + + | Height | 156.2 cm (5' 1.5") | 05/18/2019 3:32 PM | | | | | PDT | | + + + + + | Body Mass Index | 19.33 | 05/18/2019 3:32 PM | | | | | PDT | | + + + + + documented in this encounter Patient Instructions Patient Instructions Garth Vinson MD - 05/18/2019 3:30 PM PDTFormatting of this note mi ght be different from the original. Patient Instructions [facility] Dr. Garth Vinson, Neurologist Date:05/18/2019 Name:Cristina Lili Buckner :..1940 Please schedule next follow up appt with Dr. 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 magazines, perform word find exercises such as cross word puzz le, and scrabble, other puzzle games like CloudPayu, Mahjong. Play computer/mobile applications such as TierPM and [employer] Continue topamax Gave medical education to avoid sleep deprivation, alcohol, stimulant, or any type of head trauma Any Questions please call ARIANA Chapin or Dr. Vinson at [facility] FallPrevention Falls often occur due to slipping, tripping or losing your balance. Millions of people fall every year and injure themselves.Here are ways to reduce your risk of falling again. Think about your fall, was there anything that caused your fall that can be fixed, remov ed, or replaced? Make your home safe by keeping walkways clear of objects you may trip over, such as elec tric cords. Use non-slip pads under rugs. Don't use area rugs or small throw rugs. Use non-slip mats in bathtubs and showers. Install handrails and lights on staircases. The handrails should be on both sides of the stairs. Don't walk in poorly lit areas. Don't stand on chairs or wobbly ladders. Use caution when reaching overhead or looking upward.This position can cause a loss of balance. Be sure your shoes fit properly, have non-slip bottoms and are in good condition. Wear shoes both inside and out. Don't go barefoot or wear slippers. Be cautious when going up and down stairs, curbs, and when walking on uneven sidewalks. If your balance is poor, consider using a cane or walker. If your fall was related to alcohol use, stop or limit alcohol intake. If your fall was related to use of sleeping medicines, talk to your healthcare provider about this.You may need to reduce your dosage at bedtime if you awaken during the night to go to the bathroom. To reduce the need for nighttime bathroom trips: ? Don't drink fluids for several hours before going to bed ? Empty your bladder before going to bed ? Men can keep a urinal at the bedside Stay as active as you can. Balance, flexibility, strength, and endurance all come from e xercise. They all play a role in preventing falls. Ask your healthcare provider which types of activity are right for you. Get your vision checked on a regular basis. If you have pets, know where they are before you stand up or walk so you don't trip over them. Use night lights. Go over all your medicines with a pharmacist or other healthcare provider to see if any of them could make you more likely to fall. Date Last Reviewed: 01/25/201819998962-1318 [employer]. [address] [place] [address], [place] [address]. All righ ts reserved. This information is not intended as a substitute for professional medical care. Always follow your healthcare professional's instructions. Partial Seizures: Know What to Do Because seizures may happen at any time, it helps to be prepared. This is true even ifmed icine usually keeps your seizures under control. Start by telling those you live and work wi th about your health condition. Make sure they know what to do if a seizure happens. Steps for your protection Most partial seizures last from a few seconds to a few minutes. During that time, those malathi und you should help keep you safe. What those witnessing the seizure should do is listed bel ow. What to do Seek medical attention right awayif you: Are hurt during the seizure Begin choking Have a seizure that lasts more than 5 minutes Have multiple seizures in a row Don't fully regain consciousness after the seizure is over Otherwise, they should do the following: Move any hard or sharp objects away from you. Turn you on your left side if you seem unconscious. Talk to you afterward to relieve your confusion. Note how long the seizure lasted. Note what you were doing before, during, and after the seizure. What NOT to do It is important thatthey don't do the following: Don't try to stop any jerking or twisting. Don't put anything in the mouth. Don't try to hold the tongue. Prepare family, friends, and coworkers It may seem awkward to talk to others about seizures. But telling family, friends, and cowo rkers about your seizures can help them react to a seizure in a way that will help and not hurt you. Describe to them what happens before, during, and after you have a seizure. Exp gwendolyn what they should and should not do. Date Last Reviewed: 02/24/201819990371-4476 [employer]. [address] [place] [address], [place] [address]. All righ ts reserved. This information is not intended as a substitute for professional medical care. Always follow your healthcare professional's instructions. Epilepsy: Safety During a Seizure Safety during a seizure Let family and friends know what to expect and how to react when youhave a seizure. This helps keep them calm and you safe. All seizures should be treated with care. But seizures th at cause you to lose consciousness (tonic-clonic seizures) require more attention. Think abo ut wearing a medical alert bracelet in case you are not around family members. This can aler t other people to your condition. Here are some tips for loved ones. What to know Seizures typically last less than 3 minutes, but it will feel like it is longer.People re cover safely from most seizures. During a tonic-clonic seizure, the person may appear to sto p breathing or turn slightly blue. This may be scary for you, but try to stay calm. Afterwar d, the person may be tired, confused, and achy. He or she may need to sleep for several hour s to fully recover. What to do During any seizure, stay with the personuntil it is over. Note the time when the seizure starts and ends.Don t try to stop the seizure. During a tonic-clonic seizure, also do th e following: Move hard or sharp objects out of the way. Lay the person on a flat surface and turn them on their side. Place a flat, soft object under their head. Don t try to restrain the person. Both of you could get hurt. Don t put anything in the person s mouth. The person can t swallow their tongue, a nd you risk breaking their teeth or being bitten. Don t give the person medicines during a seizure, unless you ve been trained by a [place] [place]. Speak quietly to the person as they recover. There is no need to call 911 if the person has a well-known cause of the seizures (such as epilepsy) and the seizure is very typical.If you are not sure or the person's condition is not known, call 911. Call 911 if any of the following occur: The seizure lasts longer than 5 minutes The person is not conscious between 2 seizures Several seizures happen in a row These things could mean the person has status epilepticus. This is a medical emergency. Hos pital treatment for this condition includes benzodiazepine medicines given by IV (intravenou s). A form of this medicine (a rectal diazepam gel) may be prescribed for at-home use. Other causes of seizures and situations that need immediate medical care include: The person has diabetes The person has a braininfection The person has heat exhaustion The person is Poisoning is known or suspected The person has low blood sugar A seizure happens after or during a high fever A head injury immediately after or within a few days after the injury happened Multiple seizures happen in a short period of time The person stops breathing A seizure that happens in water The person hit their head during a seizure and becomes difficult to wake up, is vomiting ,or complains of blurry vision It is the first time a seizure happens It is differentthan the typical seizuresfor that person The person is difficult to arouse after the seizure Alcohol or drug abuse Alcohol or drug withdrawal Date Last Reviewed: 08/27/201719991598-1916 [employer]. [address] [place] [address]. All [facility] ts reserved. This information is not intended as a substitute for professional medical care. Always follow your healthcare professional's instructions. What is Peripheral Neuropathy? Peripheral neuropathy symptoms often start in the toes and move up the foot. Peripheral neuropathy is a disease of the nerves. It most often startsin your feet and ma y also eventually affect the arms. It can affect sensory, motor, or both functions. It may c ause pain or make you unable to sense pain. Sometimes, weakness occurs as well. Lack of pain and weakness makes you more likely to injure yourself without knowing it. But you can learn ways to protect your feet from injury. When nerves are diseased Nerves in your feet carry signals to your brain. Your brain reads those signals and interpr ets them as sensations. When nerves in your feet are diseased, signals may be disrupted or c hanged.The result may be a lack of feeling (numbness)in your feet or other symptoms, suc h as tingling or pain. Symptoms mask pain Symptoms of peripheral neuropathy usually start in your toes. The symptoms slowly spread up your feet and legs as more nerve is affected. These symptoms may decrease sensation in your feet or mask pain. Without pain, you may not notice a cut or even a bone fracture. Cuts may become infected. Fractures may heal poorly and lead to foot deformity. Common causes of peripheral neuropathy Some common causes of peripheral neuropathy include: Diabetes or other endocrine disorders Toxins (such as alcohol) Nutritional deficiencies (such as Vitamin B-12) Kidney disease Injury Repetitive stress (such as carpal tunnel syndrome) Autoimmune disease Cancer and tumors Chemotherapy cancer treatment Arthritis Advanced age Neurological disorders Infection Diagnosis and treatment Diagnosis of peripheral neuropathy includes a complete history and physical exam. Tests i nclude blood tests and imaging often help find the cause. Special nerve tests are often help ful including nerve conduction velocity studies (NCV), and electromyography (EMG). NCV helps find evidence of poor conduction of nerve signals. EMG helps tell whether symptoms are caus ed by muscle or nerve disorders. Treatment focuses on treating the underlying disorder and treating the symptoms usingmedi cines, injections, TENS (transcutaneous electrical nerve stimulation), acupuncture, massage, and others. Date Last Reviewed: 09/26/201719997608-6365 [employer]. [address] [place] [address]. All [facility] ts reserved. This information is not intended as a substitute for professional medical care. Always follow your healthcare professional's instructions. Treating Peripheral Neuropathy Peripheral neuropathy is a disease of the nerves. It most often startsin your feet andm ay alsoeventuallyaffect the arms.Itmay cause pain ormay make you unable to sense p ain.Sometimes, weakness occurs as well.Lack of painand weaknessmakesyou more likel y to injure yourself without knowing it. Learn ways to protect your feet. Check your feet daily for wounds you may not have felt. Av oid michaels by testing bath water with your elbow before stepping in. Also,always wear shoes to prevent injury. Regular foot care If you have foot numbness, you may not notice cutting yourself while trimming your nails. T o prevent problems, your healthcare provider may ask you to visit for nail and callus trimmi ng. See your provider for foot care as often as suggested. Check your feet daily Catch problems early by checking your feet every day for changes. Look at the top and botto m of your feet, your heels, and between your toes. It may help to use a mirror. If this is h reginald, ask someone to check for you. Call your healthcare provider if you notice a wound, ulce ration, ingrown nail, or any changes in your feet. This includes increased heat, swelling, n umbness, tingling, pain, and redness. Wear proper footwear Always wear shoes and socks, even indoors. Ask your healthcare provider how to choose the r ight shoe. After buying shoes, bring them to your doctor to be checked for proper fit. Take new shoes off every hour or so to check for red pressure areas on your feet. Each time you p ut on your shoes, use your fingers first to feel inside for foreign objects. Common causes of peripheral neuropathy Some common causes of peripheral neuropathy include: Diabetes or other endocrine disorders Toxins (such as alcohol) Nutritional deficiencies (such as Vitamin B-12) Kidney disease Injury Repetitive stress (such as carpal tunnel syndrome) Autoimmune disease Cancer and tumors Chemotherapy Arthritis Advanced age Heredity Infection Diagnosis and treatment Diagnosis of peripheral neuropathy includes a complete history and physical exam. Lab manuel ts including blood work and imaging often help determine the cause. Special nerve tests are often helpful including nerve conduction velocity studies (NCV), and electromyography (EMG). Treatment focuses on treating the underlying disorder and treating symptoms through the use of medicines, injections, TENS (transcutaneous electrical nerve stimulation), acupuncture, massage, and other methods. Date Last Reviewed: 10/27/201719997220-6654 [employer]. [address] [place] [address]. All [facility] ts reserved. This information is not intended as a substitute for professional medical care. Always follow your healthcare professional's instructions. documented in this encounter Progress Notes Garth Vinson MD - 05/18/2019 3:30 PM PDT Patient: Cristina Buckner Medical Record: [id number] Date of Services: 05/18/2019 Referring Doctor: Yair Gleason MD Chief Complaint: Seizures History of Present Illness: Miss Buckner was a 78-year-old right-handed lady, seen for neurologic evaluation, treated for seizures, complex partial with secondary generalization, presently receiving Topamax 25 mg by mouth twice a day. Her last seizure was in March 2019 and is been doing well and we'll pe rform a Topamax level today. She was given medical education to avoid sleep deprivation, al cohol, stimulants, or type of head trauma. In addition, she has evidence of peripheral neuropathy, likely due to her underlying diabet es, control and medications and diet with last hemoglobin A1c 4.7, performed on March 2019. NCS/EMG of the lower extremities with be performed to determine the severity of her underly ing peripheral neuropathy. She has clear evidence of gait disorder and advised PT/OT and ga it training at [facility] in [facility]. 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 Patient was advised to call for increasing sinus symptoms or seizures. Review of Systems: Denies headache, earache, nasal catarrh, diplopia, blurring of vision, d ysphagia, odynophagia, sore throat, neck masses, hearing loss, chest pain, palpitations, gabby rtness of breath, cough, hemoptysis, abdominal pain, diarrhea, constipation, bowel or bladde r dysfunction, hematuria, dysuria, lymphadenopathies, echhymoses, rashes, and homicidal or s uicidal ideations. Present Medication: Current Outpatient Medications Medication Sig Dispense Refill aspirin 325 mg EC tablet Take by mouth. cefdinir (OMNICEF) 300 mg capsule cephalexin (KEFLEX) 500 mg capsule ciprofloxacin (CIPRO) 500 mg tablet fish oil 1,000 mg capsule Take by mouth. gemfibrozil (LOPID) 600 mg tablet hydroCHLOROthiazide 25 mg tablet levothyroxine (SYNTHROID) 88 mcg tablet Take 88 mcg by mouth. lovastatin (MEVACOR) 20 mg tablet metFORMIN (GLUCOPHAGE) 500 mg tablet metoprolol tartrate (LOPRESSOR) 25 mg tablet Take by mouth. omeprazole (PRILOSEC) 20 mg capsule potassium chloride (KLOR-CON) 10 mEq CR tablet PROAIR HFA 108 (90 Base) MCG/ACT inhaler spironolactone (ALDACTONE) 25 mg tablet sulfamethoxazole-trimethoprim (BACTRIM DS) 800-160 mg per tablet topiramate (TOPAMAX) 25 mg tablet Take 1 tablet by mouth 2 times daily for 30 days. 60 tablet 11 traMADol (ULTRAM) 50 mg tablet No current facility-administered medications for this visit. Patient's Allergies: Allergies Allergen Reactions Codeine Other reaction(s): Other (See Comments) unknown Amoxicillin Other reaction(s): No Reaction Indicated Morphine Other reaction(s): No Reaction Indicated Sulfa Antibiotics Other reaction(s): No Reaction Indicated Neurological Examination: Vitals: 05/18/19 1532 BP: 138/70 Pulse: 80 Resp: 20 PainSc: 0 - No pain MENTAL STATUS: The patient is awake, alert, and oriented to time, place, and person. [facility]. Memory, attention, comprehension, and general fund of knowledge are intact. CRANIAL NERVES: Funduscopy revealed distinct disc margins. There are no exudates or hemor rhages noted. Pupils are 3-4 mm, equal and reactive to light and accommodation. Extraocular muscle movements are intact. There are no visual field cuts. There is no nystagmus. There is no facial asymmetry. Facial sensation is intact. Palate elevates symmetrically. Streng th in the trapezius and sternocleidomastoid muscles is normal. Tongue is midline on protrusi on. MOTOR EXAMINATION: Strength is 5/5 throughout. Tone is normal. SENSORY EXAMINATION: impaired poor perception and vibratory sense at the toes with decreas ed light touch in a stocking distribution up to the ankles bilaterally DEEP TENDON REFLEXES: trace to absent throughout PLANTAR RESPONSES: Downgoing bilaterally GAIT: wide-based stance, unable to tandem gait, Romberg was negative CEREBELLAR EXAMINATION: There is no dysmetria on [id number] test. 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 Garth Vinson, Neurologist Date:05/18/2019 Name:Cristina Pearson Dudley :..1940 Please schedule next follow up appt with Dr. 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 magazines, perform word find exercises such as cross word puzz le, and scrabble, other puzzle games like [employer], Mahjong. Play computer/mobile applications such as TierPM and [employer] Continue topamax Gave medical education to avoid sleep deprivation, alcohol, stimulant, or any type of head trauma Schedule for NCS/EMG of the lower extremities, ordered on her last visit Any Questions please call ARIANA Chapin or Dr. Vinson at [facility] FallPrevention Falls often occur due to slipping, tripping or losing your balance. Millions of people fall every year and injure themselves.Here are ways to reduce your risk of falling again. Think about your fall, was there anything that caused your fall that can be fixed, remov ed, or replaced? Make your home safe by keeping walkways clear of objects you may trip over, such as elec tric cords. Use non-slip pads under rugs. Don't use area rugs or small throw rugs. Use non-slip mats in bathtubs and showers. Install handrails and lights on staircases. The handrails should be on both sides of the stairs. Don't walk in poorly lit areas. Don't stand on chairs or wobbly ladders. Use caution when reaching overhead or looking upward.This position can cause a loss of balance. Be sure your shoes fit properly, have non-slip bottoms and are in good condition. Wear shoes both inside and out. Don't go barefoot or wear slippers. Be cautious when going up and down stairs, curbs, and when walking on uneven sidewalks. If your balance is poor, consider using a cane or walker. If your fall was related to alcohol use, stop or limit alcohol intake. If your fall was related to use of sleeping medicines, talk to your healthcare provider about this.You may need to reduce your dosage at bedtime if you awaken during the night to go to the bathroom. To reduce the need for nighttime bathroom trips: ? Don't drink fluids for several hours before going to bed ? Empty your bladder before going to bed ? Men can keep a urinal at the bedside Stay as active as you can. Balance, flexibility, strength, and endurance all come from e xercise. They all play a role in preventing falls. Ask your healthcare provider which types of activity are right for you. Get your vision checked on a regular basis. If you have pets, know where they are before you stand up or walk so you don't trip over them. Use night lights. Go over all your medicines with a pharmacist or other healthcare provider to see if any of them could make you more likely to fall. Date Last Reviewed: 01/25/201819993268-6620 [employer]. [address] [place] [address]. All righ ts reserved. This information is not intended as a substitute for professional medical care. Always follow your healthcare professional's instructions. Partial Seizures: Know What to Do Because seizures may happen at any time, it helps to be prepared. This is true even ifmed icine usually keeps your seizures under control. Start by telling those you live and work wi th about your health condition. Make sure they know what to do if a seizure happens. Steps for your protection Most partial seizures last from a few seconds to a few minutes. During that time, those malathi und you should help keep you safe. What those witnessing the seizure should do is listed bel ow. What to do Seek medical attention right awayif you: Are hurt during the seizure Begin choking Have a seizure that lasts more than 5 minutes Have multiple seizures in a row Don't fully regain consciousness after the seizure is over Otherwise, they should do the following: Move any hard or sharp objects away from you. Turn you on your left side if you seem unconscious. Talk to you afterward to relieve your confusion. Note how long the seizure lasted. Note what you were doing before, during, and after the seizure. What NOT to do It is important thatthey don't do the following: Don't try to stop any jerking or twisting. Don't put anything in the mouth. Don't try to hold the tongue. Prepare family, friends, and coworkers It may seem awkward to talk to others about seizures. But telling family, friends, and cowo rkers about your seizures can help them react to a seizure in a way that will help and not hurt you. Describe to them what happens before, during, and after you have a seizure. Exp gwendolyn what they should and should not do. Date Last Reviewed: 02/24/201819991268-5446 [employer]. [address] [place] [address], [place] [address]. All righ ts reserved. This information is not intended as a substitute for professional medical care. Always follow your healthcare professional's instructions. Epilepsy: Safety During a Seizure Safety during a seizure Let family and friends know what to expect and how to react when youhave a seizure. This helps keep them calm and you safe. All seizures should be treated with care. But seizures th at cause you to lose consciousness (tonic-clonic seizures) require more attention. Think abo ut wearing a medical alert bracelet in case you are not around family members. This can aler t other people to your condition. Here are some tips for loved ones. What to know Seizures typically last less than 3 minutes, but it will feel like it is longer.People re cover safely from most seizures. During a tonic-clonic seizure, the person may appear to sto p breathing or turn slightly blue. This may be scary for you, but try to stay calm. Afterwar d, the person may be tired, confused, and achy. He or she may need to sleep for several hour s to fully recover. What to do During any seizure, stay with the personuntil it is over. Note the time when the seizure starts and ends.Don t try to stop the seizure. During a tonic-clonic seizure, also do th e following: Move hard or sharp objects out of the way. Lay the person on a flat surface and turn them on their side. Place a flat, soft object under their head. Don t try to restrain the person. Both of you could get hurt. Don t put anything in the person s mouth. The person can t swallow their tongue, a nd you risk breaking their teeth or being bitten. Don t give the person medicines during a seizure, unless you ve been trained by a [place] [place]. Speak quietly to the person as they recover. There is no need to call 911 if the person has a well-known cause of the seizures (such as epilepsy) and the seizure is very typical.If you are not sure or the person's condition is not known, call 911. Call 911 if any of the following occur: The seizure lasts longer than 5 minutes The person is not conscious between 2 seizures Several seizures happen in a row These things could mean the person has status epilepticus. This is a medical emergency. Hos pital treatment for this condition includes benzodiazepine medicines given by IV (intravenou s). A form of this medicine (a rectal diazepam gel) may be prescribed for at-home use. Other causes of seizures and situations that need immediate medical care include: The person has diabetes The person has a braininfection The person has heat exhaustion The person is Poisoning is known or suspected The person has low blood sugar A seizure happens after or during a high fever A head injury immediately after or within a few days after the injury happened Multiple seizures happen in a short period of time The person stops breathing A seizure that happens in water The person hit their head during a seizure and becomes difficult to wake up, is vomiting ,or complains of blurry vision It is the first time a seizure happens It is differentthan the typical seizuresfor that person The person is difficult to arouse after the seizure Alcohol or drug abuse Alcohol or drug withdrawal Date Last Reviewed: 08/27/201719998680-1641 [employer] [address] [place] [address]. All righ ts reserved. This information is not intended as a substitute for professional medical care. Always follow your healthcare professional's instructions. What is Peripheral Neuropathy? Peripheral neuropathy symptoms often start in the toes and move up the foot. Peripheral neuropathy is a disease of the nerves. It most often startsin your feet and ma y also eventually affect the arms. It can affect sensory, motor, or both functions. It may c ause pain or make you unable to sense pain. Sometimes, weakness occurs as well. Lack of pain and weakness makes you more likely to injure yourself without knowing it. But you can learn ways to protect your feet from injury. When nerves are diseased Nerves in your feet carry signals to your brain. Your brain reads those signals and interpr ets them as sensations. When nerves in your feet are diseased, signals may be disrupted or c hanged.The result may be a lack of feeling (numbness)in your feet or other symptoms, suc h as tingling or pain. Symptoms mask pain Symptoms of peripheral neuropathy usually start in your toes. The symptoms slowly spread up your feet and legs as more nerve is affected. These symptoms may decrease sensation in your feet or mask pain. Without pain, you may not notice a cut or even a bone fracture. Cuts may become infected. Fractures may heal poorly and lead to foot deformity. Common causes of peripheral neuropathy Some common causes of peripheral neuropathy include: Diabetes or other endocrine disorders Toxins (such as alcohol) Nutritional deficiencies (such as Vitamin B-12) Kidney disease Injury Repetitive stress (such as carpal tunnel syndrome) Autoimmune disease Cancer and tumors Chemotherapy cancer treatment Arthritis Advanced age Neurological disorders Infection Diagnosis and treatment Diagnosis of peripheral neuropathy includes a complete history and physical exam. Tests i nclude blood tests and imaging often help find the cause. Special nerve tests are often help ful including nerve conduction velocity studies (NCV), and electromyography (EMG). NCV helps find evidence of poor conduction of nerve signals. EMG helps tell whether symptoms are caus ed by muscle or nerve disorders. Treatment focuses on treating the underlying disorder and treating the symptoms usingmedi cines, injections, TENS (transcutaneous electrical nerve stimulation), acupuncture, massage, and others. Date Last Reviewed: 09/26/201719996310-3587 [employer] [address] [place] [address]. All righ ts reserved. This information is not intended as a substitute for professional medical care. Always follow your healthcare professional's instructions. Treating Peripheral Neuropathy Peripheral neuropathy is a disease of the nerves. It most often startsin your feet andm ay alsoeventuallyaffect the arms.Itmay cause pain ormay make you unable to sense p ain.Sometimes, weakness occurs as well.Lack of painand weaknessmakesyou more likel y to injure yourself without knowing it. Learn ways to protect your feet. Check your feet daily for wounds you may not have felt. Av oid michaels by testing bath water with your elbow before stepping in. Also,always wear shoes to prevent injury. Regular foot care If you have foot numbness, you may not notice cutting yourself while trimming your nails. T o prevent problems, your healthcare provider may ask you to visit for nail and callus trimmi ng. See your provider for foot care as often as suggested. Check your feet daily Catch problems early by checking your feet every day for changes. Look at the top and botto m of your feet, your heels, and between your toes. It may help to use a mirror. If this is h reginald, ask someone to check for you. Call your healthcare provider if you notice a wound, ulce ration, ingrown nail, or any changes in your feet. This includes increased heat, swelling, n umbness, tingling, pain, and redness. Wear proper footwear Always wear shoes and socks, even indoors. Ask your healthcare provider how to choose the r ight shoe. After buying shoes, bring them to your doctor to be checked for proper fit. Take new shoes off every hour or so to check for red pressure areas on your feet. Each time you p ut on your shoes, use your fingers first to feel inside for foreign objects. Common causes of peripheral neuropathy Some common causes of peripheral neuropathy include: Diabetes or other endocrine disorders Toxins (such as alcohol) Nutritional deficiencies (such as Vitamin B-12) Kidney disease Injury Repetitive stress (such as carpal tunnel syndrome) Autoimmune disease Cancer and tumors Chemotherapy Arthritis Advanced age Heredity Infection Diagnosis and treatment Diagnosis of peripheral neuropathy includes a complete history and physical exam. Lab manuel ts including blood work and imaging often help determine the cause. Special nerve tests are often helpful including nerve conduction velocity studies (NCV), and electromyography (EMG). Treatment focuses on treating the underlying disorder and treating symptoms through the use of medicines, injections, TENS (transcutaneous electrical nerve stimulation), acupuncture, massage, and other methods. Date Last Reviewed: 10/27/201719993770-1666 [employer]. [address] [place] [address], [place] [id number]. All [facility] ts reserved. This information is not intended as a substitute for professional medical care. Always follow your healthcare professional's instructions. Garth Vinson MD05/18/201915:49 Electronically signed NOTE: Part of this report was transcribed using voice recognition software. Every effort was made to ensure accuracy. However, inadvertent computerize sas analyst errors may be present documented in this enc ounter Plan of Treatment +--------+---------+ + + + | Date | Type | Specialty | Care Team | Description | +--------+---------+ + + + | 11/11/ | Office | Neurology | Kathie, | | | 2019 | Visit | | [address] | | | | [address] [place] | | | | | | [place] [address] | | | | | | [phone] | | | | | | | | +--------+---------+ + + + | 05/08/ | Office | Neurology | Garth Vinson MD | | | 2019 | Visit | | [address] | | | | | | [place] | | | | | | [address] | | | | | | | | +--------+---------+ + + + + + +--------+ + + | Name | Type | Priori | Associated Diagnoses | Order Schedule | | | | ty | | | + + +--------+ + + | Aniabl | Outpatient | Routin | Gait disorder | Ordered: 05/18/2019 | | Hospital Physical | Referral | e | | | | Therapy, External - | | | | | | AMB Referral | | | | | + + +--------+ + + documented as of this encounter Results Topiramate Level (05/18/2019 4:21 PM PDT) + + + + + + | Component | Value | Ref Range | Performed | Pathologist | | | | | At | Signature | + + + + + + | Topiramate, | 1.6Comment: | mcg/mL | REFERENCE | | | Serum | THERAPEUTIC RANGE for | | LAB [facility] | | | | Topiramate: | | [facility] | | | | Dose (mg) Peak | | - JAEGER | | | | (mcg/mL) Trough | | AQUINO | | | | (mcg/mL) | | | | | | 100 | | | | | | 6.5-9.2 | | | | | | 4.5-6.6 | | | | | | 200 | | | | | | 12.0-16.0 | | | | | | 8.0-12.0 | | | | | | 400 | | | | | | 20.0-30.0 | | | | | | 14.0-20.0 This test was | | | | | | developed and its | | | | | | analytical performance | | | | | | characteristics have | | | | | | been determined by [facility] | | | | | | [facility] | | | | | | [place] | | | | | | [place]. It has not | | | | | | been cleared or approved | | | | | | by the USFood and Drug | | | | | | Administration. This | | | | | | assay has been validated | | | | | | pursuant to the CLIA | | | | | | regulations and is used | | | | | | for clinical purposes. @ | | | | | | Test Performed By: | | | | | | [facility] | | | | | | [facility] José Miguel | | | | | | Bryon Alejo M.D., | | | | | | Ph.D., Laboratory | | | | | | Director [id number] | | | | | | [facility] | | | | | | [place] [address] | | | | | | CLIA #[id number] | | | | + + + + + + + + | Specimen | + + | Blood | + + + + + + + | Performing | Address | City/State/Zipcode | Phone Number | | Organization | | | | + + + + + | REFERENCE LAB | [id number] [facility] | [place], [place] | | | [facility] - | | [address] | | | [place] | | | | + + + + + documented in this encounter Visit Diagnoses + + | Diagnosis | + + | Seizure (HCC) - Primary Other convulsions | + + | Gait disorder Abnormality of gait | + + | 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
--- OUTSIDE RECORDS SUMMARY | ~2019-09-12 | XMS | Encounter Summary ---
Demographics + + + | Address | [address] | | | [place] [address] | + + + | Home Phone | | + + + | Preferred Language | Unknown | + + + | Marital Status | | + + + | Yazidism Affiliation | 1077 | + + + | Race | Unknown | + + + | Ethnic Group | Unknown | + + + Author + + + | Author | [facility] | | | and [place] | + + + | Organization | [facility] | | | [...] Team Providers + +------+ + | Care Gearcase Assembler Name | Role | Phone | + +------+ + PCP | Unavailable | + +------+ + Encounter Details +--------+ + + + + | Date | Type | Department | Care Team | Description | +--------+ + + + + | 10/12/ | Hospital | [facility] | Cole Adidson | | | 2012 | Encounter | H[facility] XRAY [address] | [address] | | | | | [address] | [place] | | | | | [place] | [place], [place] | | | | | [address] | [address] | | | | | [phone] | [phone] | | | | | | | [...] | | | | | | [place] [address] | | | | | | [phone] | | | | | | | | +--------+---------+ + + + | 05/08/ | Office | Neurology | Garth Vinson MD | | | 2019 | Visit | | [address] | | | | | | [place] | | | | | | [address] | | | | | | | | +--------+---------+ + + + documented as of this encounter Visit Diagnoses Not on filedocumented in this encounter"
--- OUTSIDE RECORDS SUMMARY | ~2019-09-12 | XMS | Encounter Summary ---
Demographics + + + | Address | [address] | | | [place] [address] | + + + | Home Phone | | + + + | Preferred Language | Unknown | + + + | Marital Status | | + + + | Sabianist Affiliation | 1077 | + + + | Race | Unknown | + + + | Ethnic Group | Unknown | + + + Author + + + | Author | [facility] | | | and [place] | + + + | Organization | [facility] | | | [...] Team Providers + +------+ + | Care Wellness Assistant Name | Role | Phone | + +------+ + PCP | Unavailable | + +------+ + Encounter Details +--------+ + + + + | Date | Type | Department | Care Team | Description | +--------+ + + + + | 03/16/ | Hospital | [facility] | Yair Gleason, | | | 2013 | Encounter | H[facility] XRAY [address] | [address] | | | | | [address] [address] | [place], [place] | | | | | [place] | [address] | | | | | [address] | [phone] | | | | | [phone] | | | +--------+ + + + [...] | | | | | | [place] [address] | | | | | | [phone] | | | | | | | | +--------+---------+ + + + | 05/08/ | Office | Neurology | Garth Vinson MD | | | 2019 | Visit | | [address] | | | | | | [place] | | | | | | [phone] | | | | | | | | +--------+---------+ + + + documented as of this encounter Visit Diagnoses Not on filedocumented in this encounter"
--- OUTSIDE RECORDS SUMMARY | ~2019-09-12 | XMS | Encounter Summary ---
Demographics + + + | Address | [address] | | | [place] [address] | + + + | Home Phone | | + + + | Preferred Language | Unknown | + + + | Marital Status | | + + + | Anabaptist Affiliation | 1077 | + + + [...] Team Providers + +------+ + | Care Communications Supervisor Name | Role | Phone | + +------+ + | Yair Gleason MD | PCP | | + +------+ + Reason for Visit +--------+ + | Reason | Comments | +--------+ + | Other | call back for Dr. Vinson | +--------+ + Encounter Details +--------+ + + + + | Date | Type | Department | Care Team | Description | +--------+ + + + + | 04/05/ | Telephone | [facility] | Garth Vinson MD | Other (call back for | | 2019 | | HOSPITAL NEUROLOGY | [address] | Dr. Vinson) | | | | CLINIC [address] | [place] | | | | | [address] [place], | [address] | | | | | [place] [address] | | | | | | [phone] | | | +--------+ + + + [...] | | | | | | [place] [address] | | | | | | [phone] | | | | | | | [...]
--- OUTSIDE RECORDS SUMMARY | ~2019-09-12 | XMS | Encounter Summary ---
Demographics + + + | Address | [address] | | | [place] [address] | + + + | Home Phone | | + + + | Preferred Language | Unknown | + + + | Marital Status | | + + + | Gnosticism Affiliation | 1077 | + + + | Race | Unknown | + + + | Ethnic Group | Unknown | + + + Author + + + | Author | [facility] | | | and [place] | + + + | Organization | [facility] | | [...] Team Providers + +------+ + | Care Caterers Helper Name | Role | Phone | + +------+ + PCP | Unavailable | + +------+ + Encounter Details +--------+ + + + + | Date | Type | Department | Care Team | Description | +--------+ + + + + | 09/19/ | Hospital | [facility] | Sebas Donald | | | 2012 | Encounter | HOSPITAL EMERGENCY | MD [address] | | | | | [address] | [facility] | | | | | [address] [place], [place] | [place] [address] | | | | | [address] | [phone] | | | | | [phone] | | | +--------+ + + + [...] | | | | | | [address] [place], | | | | | | [place] [address] | | | | | | [phone] | | | | | | | | +--------+---------+ + + + | 07/13/ | Office | Neurology | Garth Vinson MD | | | 2019 | Visit | | [address] | | | | | | [place] | | | | | | [phone] | | | | | | | | +--------+---------+ + + + documented as of this encounter Visit Diagnoses Not on filedocumented in this encounter"
--- OUTSIDE RECORDS SUMMARY | ~2019-09-12 | XMS | Encounter Summary ---
Demographics + + + | Address | [address] | | | [place] [address] | + + + | Home Phone | | + + + | Preferred Language | Unknown | + + + | Marital Status | | + + + | Shinto Affiliation | 1077 | + + + | Race | Unknown | + + + | Ethnic Group | Unknown | + + + Author + + + | Author | [facility] | | | and [place] | + + + | Organization | [facility] | | | and [...] Team Providers + +------+ + | Care Chief Diversity Officer Name | Role | Phone | + +------+ + PCP | Unavailable | + +------+ + Encounter Details +--------+ + + + + | Date | Type | Department | Care Team | Description | +--------+ + + + + | 11/17/ | Hospital | [facility] | Emmy Roberts, | | | 2013 | Encounter | HOSPITAL EMERGENCY | [employer] [address] | | | | | [address] | [place] | | | | | [place] | [address] | | | | | [address] | | | | | | [phone] | | | +--------+ + + + [...] | | | | | | [place] [address] | | | | | | [phone] | | | | | | | | +--------+---------+ + + + | 07/13/ | Office | Neurology | Garth Vinson MD | | | 2019 | Visit | | [address] | | | | | | [place] | | | | | | [phone] | | | | | | | | +--------+---------+ + + + documented as of this encounter Visit Diagnoses Not on filedocumented in this encounter"
--- OUTSIDE RECORDS SUMMARY | ~2019-09-12 | XMS | Encounter Summary ---
Demographics + + + | Address | [address] | | | [place] [address] | + + + | Home Phone | | + + + | Preferred Language | Unknown | + + + | Marital Status | | + + + | Gnosticism Affiliation | 1077 | + + + | Race | Unknown | + + + | Ethnic Group | Unknown | + + + Author + + + | Author | [facility] | | | and [place] | + + + | Organization | [facility] | | | [...] Team Providers + +------+ + | Care Plastic Sheets Supervisor Name | Role | Phone | + +------+ + PCP | Unavailable | + +------+ + Encounter Details +--------+ + + + + | Date | Type | Department | Care Team | Description | +--------+ + + + + | 09/12/ | Hospital | [facility] | Garth Vinson MD | | | 2014 | Encounter | HOSPITAL LABORATORY | [address] | | | | | [address] | [place], [place] | | | | | [place], [place] | [address] | | | | | [address] | | | | | | [phone] | | | +--------+ + + + [...] | | | | | | [place] [address] | | | | | | [phone] | | | | | | | | +--------+---------+ + + + | 05/08/ | Office | Neurology | Garth Vinson MD | | | 2019 | Visit | | [address] | | | | | | [place] | | | | | | [address] | | | | | | | | +--------+---------+ + + + documented as of this encounter Procedures + +--------+ + + + | Procedure Name | Priori | Date/Time | Associated Diagnosis | Comments | | | ty | | | | + +--------+ + + + | CBC W/AUTO | Routin | 09/12/2014 | | Results for this | | DIFFERENTIAL | e | 4:46 PM | | procedure are in the | | | | PST | | results section. | + +--------+ + + + | HEMOGLOBIN A1C | Routin | 09/12/2014 | | Results for this | | | e | 4:34 PM | | procedure are in the | | | | PST | | results section. | + +--------+ + + + | COMPREHENSIVE | Routin | 09/12/2014 | | Results for this | | METABOLIC PANEL | e | 4:34 PM | | procedure are in the | | | | PST | | results section. | + +--------+ + + + documented in this encounter Results CBC w/ Auto Differential (09/12/2014 4:46 PM PST) + +-------+ + + + | Component | Value | Ref Range | Performed | Pathologist | | | | | At | Signature | + +-------+ + + + | WBC | 7.2 | 4.3 - 10.4 | EXTERNAL | | | | | 1000/mm3 | LAB | | + +-------+ + + + | RBC | 4.87 | 4.12 - 5.30 | EXTERNAL | | | | | mil/mm3 | LAB | | + +-------+ + + + | HGB, | 15.1 | 12.4 - 15.7 | EXTERNAL | | | External | | g/dL | LAB | | + +-------+ + + + | HCT, | 42.1 | 37.7 - 47.0 % | EXTERNAL | | | External | | | LAB | | + +-------+ + + + | MCV | 86 | 82 - 97 fl | EXTERNAL | | | | | | LAB | | + +-------+ + + + | MCH | 31 | 27.1 - 32.3 pg | EXTERNAL | | | | | | LAB | | + +-------+ + + + | MCHC | 35.9 | 32.0 - 36.9 | EXTERNAL | | | | | g/dL | LAB | | + +-------+ + + + | RDW-CV | 13.1 | <=17.0 % | EXTERNAL | | | | | | LAB | | + +-------+ + + + | RDW-SD | 39.9 | 34.0 - 57.0 fL | EXTERNAL | | | | | | LAB | | + +-------+ + + + | Platelet | 425 | 150 - 450 | EXTERNAL | | | Count | | 1000/mm3 | LAB | | | Plasma | | | | | + +-------+ + + + | MPV | 10.2 | 9.4 - 12.3 FL | EXTERNAL | | | | | | LAB | | + +-------+ + + + | % Segmented | 52 | 42.0 - 76.0 % | EXTERNAL | | | | | | LAB | | | Neutrophils | | | | | + +-------+ + + + | % | 35.5 | 20.0 - 40.0 % | EXTERNAL | | | Lymphocytes | | | LAB | | + +-------+ + + + | % Monocytes | 7.6 | 3.0 - 13.0 % | EXTERNAL | | | | | | LAB | | + +-------+ + + + | % | 2.4 | 0.0 - 7.0 % | EXTERNAL | | | Eosinophils | | | LAB | | + +-------+ + + + | % Basophils | 2.5 | 0.0 - 2.0 % | EXTERNAL | | | | | | LAB | | + +-------+ + + + | Absolute | 3.74 | 2.50 - 8.50 | EXTERNAL | | | Neutrophils | | 1000/mm3 | LAB | | + +-------+ + + + | Absolute | 2.55 | 1.00 - 3.80 | EXTERNAL | | | Lymphocytes | | 1000/mm3 | LAB | | + +-------+ + + + | Absolute | 0.55 | 0.00 - 0.80 | EXTERNAL | | | Monocytes | | 1000/mm3 | LAB | | + +-------+ + + + | Absolute | 0.17 | 0.00 - 0.70 | EXTERNAL | | | Eosinophils | | 1000/mm3 | LAB | | + +-------+ + + + | Absolute | 0.18 | 0.00 - 0.20 | EXTERNAL | | | Basophils | | 1000/mm3 | LAB | | + +-------+ + + + | SLIDE | NO | | EXTERNAL | | | REVIEWED | | | LAB | | + +-------+ + + + + + | Specimen | + + | | + + + +---------+ + + | Performing | Address | City/State/Zipcode | Phone Number | | Organization | | | | + +---------+ + + | EXTERNAL LAB | | | | + +---------+ + + Hemoglobin A1C (09/12/2014 4:34 PM PST) + +-------+ + + + | Component | Value | Ref Range | Performed | Pathologist | | | | | At | Signature | + +-------+ + + + | Hemoglobin | 5.2 | <=5.6 % | EXTERNAL | | | A1c | | | LAB | | + +-------+ + + + + + | Specimen | + + | | + + + +---------+ + + | Performing | Address | City/State/Zipcode | Phone Number | | Organization | | | | + +---------+ + + | EXTERNAL LAB | | | | + +---------+ + + Comprehensive Metabolic Panel (09/12/2014 4:34 PM PST) + +-------+ + + + | Component | Value | Ref Range | Performed | Pathologist | | | | | At | Signature | + +-------+ + + + | Sodium | 136 | 132 - 143 | EXTERNAL | | | | | mmol/L | LAB | | + +-------+ + + + | Potassium | 2.8 | 3.3 - 4.9 | EXTERNAL | | | | | mmol/L | LAB | | + +-------+ + + + | Cl | 101 | 95 - 108 mmol/L | EXTERNAL | | | | | | LAB | | + +-------+ + + + | CO2 | 26 | 23 - 34 mmol/L | EXTERNAL | | | | | | LAB | | + +-------+ + + + | Anion Gap | 9 | 7 - 16 | EXTERNAL | | | | | | LAB | | + +-------+ + + + | Calcium | 9.1 | 8.3 - 10.0 | EXTERNAL | | | | | mg/dL | LAB | | + +-------+ + + + | Glucose | 130 | 70 - 110 mg/dL | EXTERNAL | | | | | | LAB | | + +-------+ + + + | BUN, Bld | 14 | 5 - 26 mg/dL | EXTERNAL | | | | | | LAB | | + +-------+ + + + | Creatinine | 1 | 0.6 - 1.3 mg/dL | EXTERNAL | | | | | | LAB | | + +-------+ + + + | BUN/Creatin | 14 | 7.0 - 24.0 | EXTERNAL | | | ine Ratio | | RATIO | LAB | | + +-------+ + + + | GFR | 58 | >=60 | EXTERNAL | | | ESTIMATE | | mL/min/1.73m2 | LAB | | + +-------+ + + + | Bilirubin, | 0.5 | <=1.2 mg/dL | EXTERNAL | | | Total | | | LAB | | + +-------+ + + + | Protein, | 8.3 | 6.6 - 8.5 g/dL | EXTERNAL | | | Total | | | LAB | | + +-------+ + + + | Albumin | 4.2 | 3.0 - 4.5 g/dL | EXTERNAL | | | | | | LAB | | + +-------+ + + + | Alkaline | 116 | 33 - 151 U/L | EXTERNAL | | | Phosphatase | | | LAB | | + +-------+ + + + | ALT, | 45 | 14 - 59 U/L | EXTERNAL | | | External | | | LAB | | + +-------+ + + + | AST, | 29 | <=38 U/L | EXTERNAL | | | External | | | LAB | | + +-------+ + + + + + | Specimen | + + | | + + + +---------+ + + | Performing | Address | City/State/Zipcode | Phone Number | | Organization | | | | + +---------+ + + | EXTERNAL LAB | | | | + +---------+ + + documented in this encounter Visit Diagnoses Not on filedocumented in this encounter"
--- OUTSIDE RECORDS SUMMARY | ~2019-09-12 | XMS | Encounter Summary ---
Demographics + + + | Address | [address] | | | [place] [address] | + + + | Home Phone | | + + + | Preferred Language | Unknown | + + + | Marital Status | | + + + | Worship Affiliation | 1077 | + + + | Race | Unknown | + + + | Ethnic Group | Unknown | + + + Author + + + | Author | [facility] | | | and [place] | + + + | Organization | [facility] | | | [...] Team Providers + +------+ + | Care Rope Making Machine Operator Name | Role | Phone | + +------+ + PCP | Unavailable | + +------+ + Encounter Details +--------+ + + + + | Date | Type | Department | Care Team | Description | +--------+ + + + + | 07/12/ | Hospital | [facility]asteen, Audi | | | 2012 | Encounter | HOSPITAL EMERGENCY | MD [address] | | | | | [address] | [place] | | | | | [place] | [address] | | | | | [address] | [phone] | | | | | [phone] | | | +--------+ + + + [...] | | | | | | [place] [address] | | | | | | [phone] | | | | | | | | +--------+---------+ + + + | 05/08/ | Office | Neurology | Garth Vinson MD | | | 2019 | Visit | | [address] | | | | | | [place] | | | | | | [address] | | | | | | | | +--------+---------+ + + + documented as of this encounter Visit Diagnoses Not on filedocumented in this encounter"
--- OUTSIDE RECORDS SUMMARY | ~2019-09-12 | XMS | Encounter Summary ---
Demographics + + + | Address | [address] | | | [place] [address] | + + + | Home Phone | | + + + | Preferred Language | Unknown | + + + | Marital Status | | + + + | Anabaptist Affiliation | 1077 | + + + | Race | Unknown | + + + | Ethnic Group | Unknown | + + + Author + + + | Author | [facility] | | | and [place] | + + + | Organization | [facility] | | | [...] Team Providers + +------+ + | Care Truckload Checker Name | Role | Phone | + [...] | | | | [place], [place] | [address] | | | | | [address] | | | | | | [phone] | | | +--------+ + + + [...] | | | | | | [place] [address] | | | | | | [phone] | | | | | | | | +--------+---------+ + + + | 05/08/ | Office | Neurology | Garth Vinson MD | | | 2019 | Visit | | [address] | | | | | | [place] | | | | | | [address] | | | | | | | [...]
--- OUTSIDE RECORDS SUMMARY | ~2019-09-12 | XMS | Encounter Summary ---
Demographics + + + | Address | [address] | | | [place] [address] | + + + | Home Phone | | + + + | Preferred Language | Unknown | + + + | Marital Status | | + + + | Druze Affiliation | 1077 | + + + | Race | Unknown | + + + | Ethnic Group | Unknown | + + + Author + + + | Author | [facility] | | | and [place] | + + + | Organization | [facility] | | | [...] Team Providers + +------+ + | Care Fish Hatchery Supervisor Name | Role | Phone | + +------+ + PCP | Unavailable | + +------+ + Encounter Details +--------+ + + + + | Date | Type | Department | Care Team | Description | +--------+ + + + + | 03/19/ | Hospital | [facility] | Garth Vinson MD | | | 2017 | Encounter | HOSPITAL RESPIRATORY | [address] | | | | | THERAPY [address] | [place] | | | | | [place] | [address] | | | | | [address] | | | | | | [phone] | | | +--------+ + + + [...] + + documented as of this encounter Progress Notes John Joel MD - 03/19/2017 10:47 AM PDT ELECTROENCEPHALOGRAM DATE OF SERVICE 03/19/2017. REFERRING PROVIDER Garth Vinson MD. INTRODUCTION This is a digital EEG recording with a record length of 21 minutes. The patient is a 76-yea r-old female with a TIA. BACKGROUND RHYTHM The patient has a well-defined basic pattern of 7-8 hertz. This activity is more prominent posteriorly, symmetrical, and synchronous. It attenuates with eye opening and returns with e ye closing. Drowsiness is appreciated by the attenuation and further slowing of the patient's background activities. ABNORMAL POTENTIALS No focal slow waves or epileptiform discharges are seen. HYPERVENTILATION/PHOTIC STIMULATION Hyperventilation was not performed. Photic stimulation was without significant effect. IMPRESSION Abnormal EEG demonstrating the presence of mild bilateral cerebral dysfunction. Thank you for the opportunity to participate in the care of this patient. [facility] Signed and Approved by: JOHN JOEL MD 03/20/2017 10:24:00 documented in this encounter Plan of Treatment +--------+---------+ + + + | Date | Type | Specialty | Care Team | Description | +--------+---------+ + + + | 11/11/ | Office | Neurology | Kathie, | | | 2019 | Visit | | [address] | | | | | [address] [place], | | | | | | [place] [address] | | | | | | [phone] | | | | | | | | +--------+---------+ + + + | 05/08/ | Office | Neurology | Garth Vinson MD | | | 2019 | Visit | | [address] | | | | | | [place], [place] | | | | | | [address] | | | | | | | | +--------+---------+ + + + documented as of this encounter Visit Diagnoses Not on filedocumented in this encounter"
--- OUTSIDE RECORDS SUMMARY | ~2019-09-12 | XMS | Encounter Summary ---
Demographics + + + | Address | [address] | | | [place] [address] | + + + | Home Phone [...] + | Author | [facility] | | | and [place] | + + + | Organization | [facility] | | | [...] Team Providers + +------+ + | Care Director Of User Experience Name | Role | Phone | + [...] Medication Refill | | 2017 | | [facility] | [address] | | | | | CLINIC [address] | [place] | | | | | DR [place], | [address] | | | | | [place] [address] | | | | | | [phone] | | | +--------+--------+ + + + [...] | | | | | | [facility], | | | | | | [place] [address] | | | | | | [phone] | | | | | | | | +--------+---------+ + + + | 05/08/ | Office | Neurology | Garth Vinson MD | | | 2019 | Visit | | [address] | | | | | | [place] | | | | | | [address] | | | | | | | [...]
--- OUTSIDE RECORDS SUMMARY | ~2019-09-12 | XMS | Encounter Summary ---
Demographics + + + | Address | [address] | | | [place] [address] | + + + | Home Phone | | + + + | Preferred Language | Unknown | + + + | Marital Status | | + + + | Cheondoism Affiliation | 1077 | + + + | Race | Unknown | + + + | Ethnic Group | Unknown | + + + Author + + + | Author | [facility] | | | and [place] | + + + | Organization | [facility] | | | [...] Team Providers + +------+ + | Care Safety Intern Name | Role | Phone | + +------+ + PCP | Unavailable | + +------+ + Encounter Details +--------+ + + + + | Date | Type | Department | Care Team | Description | +--------+ + + + + | 12/29/ | Hospital | [facility] | Yair Gleason, | | | 2012 | Encounter | HOSPITAL XRAY [address] | [address] | | | | | [address] | [place], [place] | | | | | [place] | [address] | | | | | [address] | [phone] | | | | | [phone] | | | +--------+ + + + [...] | | | | | | [place] [address] | | | | | | [phone] | | | | | | | | +--------+---------+ + + + | 05/08/ | Office | Neurology | Garth Vinson MD | | | 2019 | Visit | | [address] | | | | | | [place], [place] | | | | | | [address] | | | | | | | | +--------+---------+ + + + documented as of this encounter Visit Diagnoses Not on filedocumented in this encounter"
--- OUTSIDE RECORDS SUMMARY | ~2019-09-12 | XMS | Encounter Summary ---
Demographics + + + | Address | [address] | | | [place] [address] | + + + | Home Phone | | + + + | Preferred Language | Unknown | + + + | Marital Status | | + + + | Shinto Affiliation | 1077 | + + + | Race | Unknown | + + + | Ethnic Group | Unknown | + + + Author + + + | Author | [facility] | | | and [place] | + + + | Organization | [facility] | | | [...] Team Providers + +------+ + | Care Test Driver Name | Role | Phone | + +------+ + PCP | Unavailable | + +------+ + Encounter Details +--------+ + + + + | Date | Type | Department | Care Team | Description | +--------+ + + + + | 04/04/ | Hospital | [facility] | Juan Pablo Singh, | | | 2017 | Encounter | HOSPITAL ORTHOPEDIC | DO [address] , | | | | | [address] | [place], [place] | | | | | [place], [place] | [address] | | | | | [address] | [phone] | | | | | [phone] | | | +--------+ + + + [...] | | | | | | [place] [address] | | | | | | [phone] | | | | | | | | +--------+---------+ + + + | 05/08/ | Office | Neurology | Garth Vinson MD | | | 2019 | Visit | | [address] | | | | | | [place] | | | | | | [address] | | | | | | | | +--------+---------+ + + + documented as of this encounter Visit Diagnoses Not on filedocumented in this encounter"
--- OUTSIDE RECORDS SUMMARY | ~2019-09-12 | XMS | Clinical Summary ---
Demographics + + + | Address | [address] | | | [place] [address] | + + + | Home Phone | | + + + | Preferred Language | Unknown | + + + | Marital Status | | + + + | Jehovah'S Witness Affiliation | 1077 | + + + | Race | Unknown | + + + | Ethnic Group | Unknown | + + + Author + + + | Author | [facility] | | | and [place] | + + + | Organization | [facility] | | | [...] Team Providers + +------+ + | Care Boiler Control Room Operator Name | Role | Phone | + +------+ + | Yair Gleason MD | PCP | | + +------+ + Allergies + + + + + + | Active Allergy | Reactions | Severity | Noted | Comments | | | | | Date | | + + + + + + | Amoxicillin | Nausea Only | | | | + + + + + + | Codeine | Nausea Only | Medium | 08/27/20 | | | | | | 14 | | + + + + + + | Morphine | Other (See Comments) | | | Elevated heart | | | | | | rate | + + + + + + Medications + + + +---------+------+------+-------+ | Medication | Sig | Dispensed | Refills | Star | End | Statu | | | | | | t | Date | s | | | | | | Date | | | + + + +---------+------+------+-------+ | aspirin 325 mg EC | Take by mouth. | | 0 | 06/2 | | Activ | | tablet | | | | 1/20 | | e | | | | | | 13 | | | + + + +---------+------+------+-------+ | fish oil 1,000 mg | Take by mouth. | | 0 | 10/3 | | Activ | | capsule | | | | 1/20 | | e | | | | | | 13 | | | + + + +---------+------+------+-------+ | | | | 0 | 01/2 | | Activ | | hydroCHLOROthiazide | | | | 2/20 | | e | | 25 mg tablet | | | | 18 | | | + + + +---------+------+------+-------+ | levothyroxine | Take 88 mcg by | | 0 | | | Activ | | (SYNTHROID) 88 mcg | mouth. | | | | | e | | tablet | | | | | | | + + + +---------+------+------+-------+ | lovastatin | | | 0 | 12/2 | | Activ | | (MEVACOR) 20 mg | | | | 9/20 | | e | | tablet | | | | 17 | | | + + + +---------+------+------+-------+ | metFORMIN | | | 0 | 01/0 | | Activ | | (GLUCOPHAGE) 500 mg | | | | 2/20 | | e | | tablet | | | | 18 | | | + + + +---------+------+------+-------+ | metoprolol | Take by mouth. | | 0 | 08/0 | | Activ | | tartrate (LOPRESSOR) | | | | 8/20 | | e | | 25 mg tablet | | | | 12 | | | + + + +---------+------+------+-------+ | potassium chloride | | | 0 | 12/2 | | Activ | | (KLOR-CON) 10 mEq | | | | 8/20 | | e | | CR tablet | | | | 17 | | | + + + +---------+------+------+-------+ | omeprazole | | | 0 | 01/0 | | Activ | | (PRILOSEC) 20 mg | | | | 2/20 | | e | | capsule | | | | 18 | | | + + + +---------+------+------+-------+ | gemfibrozil | | | 0 | 04/0 | | Activ | | (LOPID) 600 mg | | | | 5/20 | | e | | tablet | | | | 19 | | | + + + +---------+------+------+-------+ | EPINEPHrine | | | 0 | 08/2 | | Activ | | auto-injector 0.3 | | | | 6/20 | | e | | mg/0.3 mL injection | | | | 19 | | | + + + +---------+------+------+-------+ | MIGUEL CHANEY 108 (90 | | | 0 | 10/0 | 11/1 | Disco | | Base) MCG/ACT | | | | 2/20 | 5/20 | ntinu | | inhaler | | | | 18 | 19 | ed | | | | | | | | (Ther | | | | | | | | apy | | | | | | | | compl | | | | | | | | eted) | + + + +---------+------+------+-------+ | cefdinir (OMNICEF) | | | 0 | 10/0 | 08/27 | Disco | | 300 mg capsule | | | | 220 | 5/20 | ntinu | | | | | | 18 | 19 | ed | | | | | | | | (Ther | | | | | | | | apy | | | | | | | | compl | | | | | | | | eted) | + + + +---------+------+------+-------+ | spironolactone | | | 0 | 03/1 | 08/27 | Disco | | (ALDACTONE) 25 mg | | | | 2/20 | 5/20 | ntinu | | tablet | | | | 19 | 19 | ed | | | | | | | | (Ther | | | | | | | | apy | | | | | | | | compl | | | | | | | | eted) | + + + +---------+------+------+-------+ | | | | 0 | 04/2 | 08/27 | Disco | | sulfamethoxazole-tri | | | | 20 | /20 | ntinu | | methoprim (BACTRIM | | | | 19 | 19 | ed | | DS) 800-160 mg per | | | | | | (Ther | | tablet | | | | | | apy | | | | | | | | compl | | | | | | | | eted) | + + + +---------+------+------+-------+ | traMADol (ULTRAM) | | | 0 | 06/28 | 08/27 | Disco | | 50 mg tablet | | | | 20 | 20 | ntinu | | | | | | 18 | 19 | ed | | | | | | | | (Ther | | | | | | | | apy | | | | | | | | compl | | | | | | | | eted) | + + + +---------+------+------+-------+ | cephalexin | | | 0 | 06/0 | 08/27 | Disco | | (KEFLEX) 500 mg | | | | / | 5/20 | ntinu | | capsule | | | | 19 | 19 | ed | | | | | | | | (Ther | | | | | | | | apy | | | | | | | | compl | | | | | | | | eted) | + + + +---------+------+------+-------+ | ciprofloxacin | | | 0 | 03/28 | 08/27 | Disco | | (CIPRO) 500 mg | | | | 02/13 | 03/15 | ntinu | | tablet | | | | | 19 | ed | | | | | | | | (Ther | | | | | | | | apy | | | | | | | | compl | | | | | | | | eted) | + + + +---------+------+------+-------+ Active Problems + + + | Problem | Noted Date | + + + | Diabetic polyneuropathy associated with type 2 diabetes mellitus | 03/29/2019 | + + + | Neurologic gait disorder | 03/29/2019 | + + + | Osteoarthritis of right knee | 01/22/2018 | + + + | Diabetes mellitus, type 2 | 11/24/2017 | + + + | Hypothyroid | 11/24/2017 | + + + | Transient ischemic attack | 03/06/2017 | + + + | Complex partial seizures with consciousness impaired | 09/12/2014 | + + + | GERD (gastroesophageal reflux disease) | 08/27/2014 | + + + | Seizure | 08/27/2014 | + + + | Hip osteoarthritis | 09/14/2012 | + + + | History of bilateral hip replacements | 06/01/2012 | + + + | Dyslipidemia | 12/27/2011 | + + + | Hypertension | 12/27/2011 | + + + Encounters +--------+ + + + + | Date | Type | Specialty | Care Team | Description | +--------+ + + + + | 09/10/ | Procedure | Neurology | Dilia Joel | Diabetes mellitus | | 2019 | visit | | MD Minnie | type 2 in nonobese | | | | | | ([facility]); Diabetic | | | | | | polyneuropathy | | | | | | associated with type | | | | | | 2 diabetes mellitus | | | | | | ([facility]); Numbness | +--------+ + + + + from Last 3 Months Family History + + +------+ + | Medical History | Relation | Name | Comments | + + +------+ + | Cancer | Father | | | + + +------+ + | Other (see comment) | Father | | | + + +------+ + | Stroke | Mother | | | + + +------+ + + +------+ + + | Relation | Name | Status | Comments | + +------+ + + | Father | | | | + +------+ + + | Mother | | | | + +------+ + + Social History + +-------+ +--------+------+ [...] recent travel history available. | + + Last Filed Vital Signs + + + + + | Vital Sign | Reading | Time Taken | Comments | + + + + + | Blood Pressure | 125/60 | 09/10/2019 1:49 PM | | | | | PST | | + + + + + | Pulse | 76 | 09/10/2019 1:49 PM | | | | | PST | | + + + + + | Temperature | - | - | | + + + + + | Respiratory Rate | 18 | 09/10/2019 1:49 PM | | | | | PST | | + + + + + | Oxygen Saturation | 100% | 09/10/2019 1:49 PM | | | | | PST | | + + + + + | Inhaled Oxygen | - | - | | | Concentration | | | | + + + + + | Weight | 47.2 kg (104 lb 0.9 | 09/10/2019 1:49 PM | | | | oz) | PST | | + + + + + | Height | 156 cm (5' 1.42") | 09/10/2019 1:49 PM | | | | | PST | | + + + + + | Body Mass Index | 19.4 | 09/10/2019 1:49 PM | | | | | PST | | + + + + + Plan of Treatment +--------+---------+ + + + | Date | Type | Specialty | Care Team | Description | +--------+---------+ + + + | 11/11/ | Office | Neurology | Kathie, | | | 2019 | Visit | | [address] [place], | | | | | | [place] [address] | | | | | | [phone] | | | | | | | | +--------+---------+ + + + | 05/08/ | Office | Neurology | Garth Vinson MD | | | 2019 | Visit | | [address] | | | | | | [place] | | | | | | [address] | | | | | | | | +--------+---------+ + + + + + + + + | Health Maintenance | Due Date | Last Done | Comments | + + + + + | Diabetic Eye Exam | | | | | | 8 | | | + + + + + | Diabetic Foot Exam | | | | | | 8 | | | + + + + + | Vaccine: Zoster (1 | | | | | of 2) | 0 | | | + + + + + | Vaccine: | | | | | Pneumococcal 65+ (1 | 5 | | | | of 2 - PCV13) | | | | + + + + + | Adult Annual | | | | | Wellness Visit | 7 | | | + + + + + | Microalbumin | | | | | Screening | 7 | | | + + + + + | Vaccine: Influenza | | 08/19/2018, 12/04/2017, | | | (#1) | 9 | 08/29/2015, Additional history | | | | | exists | | + + + + + | Hemoglobin A1c | | 03/30/2019, 09/12/2014, | | | Screening | 9 | 08/27/2014 | | + + + + + | Breast Cancer | | 01/19/2018, 01/09/2017 | | | Screening | 0 | | | + + + + + | Colorectal Cancer | | | Postponed from | | Screening | 3 | | 1957 (Plan in | | (Colonoscopy) | | | Place) | + + + + + | Vaccine: | | 06/07/2019, 08/22/2017 | | | Dtap/Tdap/Td (3 - | 9 | | | | Td) | | | | + + + + + Procedures + +--------+ + + + | Procedure Name | Priori | Date/Time | Associated Diagnosis | Comments | | | ty | | | | + +--------+ + + + | EMG STUDY | Routin | 09/10/2019 | Diabetes mellitus | Results for this | | | e | 2:00 PM | type 2 in nonobese | procedure are in the | | | | PST | ([facility]) Diabetic | results section. | | | | | polyneuropathy | | | | | | associated with type | | | | | | 2 diabetes mellitus | | | | | | ([facility]) Numbness | | + +--------+ + + + | EMG STUDY | Routin | 09/10/2019 | Diabetes mellitus | Results for this | | | e | 2:00 PM | type 2 in nonobese | procedure are in the | | | | PST | ([facility]) Diabetic | results section. | | | | | polyneuropathy | | | | | | associated with type | | | | | | 2 diabetes mellitus | | | | | | ([facility]) Numbness | | + +--------+ + + + | EMG STUDY | Routin | 09/10/2019 | Diabetes mellitus | Results for this | | | e | 2:00 PM | type 2 in nonobese | procedure are in the | | | | PST | ([facility]) Diabetic | results section. | | | | | polyneuropathy | | | | | | associated with type | | | | | | 2 diabetes mellitus | | | | | | ([facility]) Numbness | | + +--------+ + + + from Last 3 Months Results EMG Study- Lower Extremity (09/10/2019 2:00 PM PST) + + + | Narrative | Performed At | + + + | Dilia Joel MD 09/10/2019 2:18 PM Please see | | | scanned report. | | + + + from Last 3 Months Insurance + +--------+ +--------+-------+---------+--------+ | Payer | Benefi | Subscriber | Effect | Phone | Address | Type | | | t Plan | ID | hernan | | | | | | / | | Dates | | | | | | Group | | | | | | + +--------+ +--------+-------+---------+--------+ | [employer] | [employer] | [id number] | | | | Medica | | | HEALTH | | 018-Pr | | | re | | | MDCR | | esent | | | | + +--------+ +--------+-------+---------+--------+ + +--------+ +--------+ + + | Guarantor Name | Accoun | Relation to | Date | Phone | Billing Address | | | t Type | Patient | of | | | | | | | | | | + +--------+ +--------+ + + | Cristina Buckner May | Person | Self [birth year] | [address] | | | al/Fam | | 1941 | [phone] | [place], [place] | | | ava | | | 1 (Home) | [phone] | + +--------+ +--------+ + + Advance Directives + + + + + | Type | Date Recorded | Patient | Explanation | | | | Ore Trimmer | | + + + + + | Power of | | | | | Trust Advisor | | | | + + + + + | Advance | 01/22/2018 3:14 | | From [place] | | Directive | PM | | | + + + + +
--- OUTSIDE RECORDS SUMMARY | ~2019-09-12 | XMS | Encounter Summary ---
Demographics + + + | Address | [address] | | | [place] [address] | + + + | Home Phone | | + + + | Preferred Language | Unknown | + + + | Marital Status | | + + + | Hoahaoism Affiliation | 1077 | + + + | Race | Unknown | + + + | Ethnic Group | Unknown | + + + Author + + + | Author | [facility] | | | and [place] | + + + | Organization | [facility] | | [...] Team Providers + +------+ + | Care Photo Producer Name | Role | Phone | + +------+ + | Yair Gleason MD | PCP | | + +------+ + Encounter Details +--------+ + + + + | Date | Type | Department | Care Team | Description | +--------+ + + + + | 03/24/ | Hospital | [facility] | Yair Gleason, | Asymptomatic | | 2019 | Encounter | [facility] [address] | MD 2011 | menopausal state | | | | [address] [place] | [place], [place] | | | | | [place], [place] | [address] | | | | | [address] | [phone] | | | | | [phone] | | | +--------+ + + + [...] + + + +---------+ + + | gemfibrozil | | | 0 | 01/30/20 | | | (LOPID) 600 mg | | | | 19 | | | tablet | | | [...] + + + +---------+ + + | cefdinir (OMNICEF) | | | 0 | 07/28/20 | | | 300 mg capsule | | | | 18 | 9 | + + + +---------+ + + | PROAIR HFA 108 (90 | | | 0 | 07/28/20 | | | Base) MCG/ACT | | | | 18 | 9 | | inhaler | | | | | | + + + +---------+ + + | spironolactone | | | 0 | 01/06/20 | | | (ALDACTONE) 25 mg | | | | 19 | 9 | | tablet | | | | | | + + + +---------+ + + | | | | 0 | 02/17/20 | | | sulfamethoxazole-tri | | | | 19 | 9 | | methoprim (BACTRIM | | | | | | | DS) 800-160 mg per | | | | | | | tablet | | | | | | + + + +---------+ + + | topiramate | Take 1 tablet by | 120 | 3 | 09/28/20 | | | (TOPAMAX) 25 mg | mouth 2 times daily. | tablet | | 18 | 9 | | tabletIndications: | | | | [...] [place] | | | | | | [place] [address] | | | | | | [phone] | | | | | | | | +--------+---------+ + + + | 05/08/ | Office | Neurology | Garth Vinson MD | | | 2019 | Visit | | [address] | | | | | | [place] | | | | | | [address] | | | | | | | | +--------+---------+ + + + documented as of this encounter Procedures + +--------+ + + + | Procedure Name | Priori | Date/Time | Associated Diagnosis | Comments | | | ty | | | | + +--------+ + + + | DEXA BONE DENSITY | Routin | 03/24/2019 | Asymptomatic | Results for this | | STUDY WO LEV MACIAS | e | 3:29 PM | menopausal state | procedure are in the | | ASSESSMENT | | PDT | | results section. | + +--------+ + + + documented in this encounter Results DEXA Bone Density wo Vert Fx Assmt (03/24/2019 3:29 PM PDT) + + | Specimen | + + | | + + + + + | Impressions | Performed At | + + + | IMPRESSION: Osteoporosis estimated left forearm. Fracture risk is | [facility] | | high. Dictated by: Conrado Benz | | + + + + + + | Narrative | Performed At | + + + | EXAMINATION: DEXA BONE DENSITY STUDY SILVANO JORGE ALBERTOPorsche MACIAS ASSESSMENT | [facility] | | HISTORY: menopausal COMPARISON STUDY: None FINDINGS: Left | | | forearm bone mineral density measures 0.509 g/cm2. T score value | | | is-2.9. The L1-L4 lumbar spine bone mineral density measures 1.025 | | | g/cm2. This represents a T-score of-1.3. | | + + + + + | Procedure Note | + + | Dileep, Rad Results In - 03/24/2019 3:55 PM PDT EXAMINATION:DEXA BONE DENSITY STUDY WO | | VERT FX ASSESSMENTHISTORY:menopausalCOMPARISON STUDY:NoneFINDINGS:Left forearm bone | | mineral density measures 0.509 g/cm2. T score value is-2.9.The L1-L4 lumbar spine bone | | mineral density measures 1.025 g/cm2. This represents a T-score of-1.3.IMPRESSION: | | IMPRESSION:Osteoporosis estimated left forearm. Fracture risk is high.Dictated by: | | Conrado Benz | |COMPARISON STUDY: | |None | | | |FINDINGS: | |Left forearm bone mineral density measures 0.509 g/cm2. T score value is-2.9. | | | |The L1-L4 lumbar spine bone mineral density measures 1.025 g/cm2. This represents a T-scor e of-1.3. | | | |IMPRESSION: | |IMPRESSION: | |Osteoporosis estimated left forearm. Fracture risk is high. | | | |Dictated by: Conrado Benz | | | | | + + + +---------+ + + | Performing | Address | City/State/Zipcode | Phone Number | | Organization | | | | + +---------+ + + | [facility] | | | | + +---------+ + + documented in this encounter Visit Diagnoses + + | Diagnosis | + + | Asymptomatic menopausal state Asymptomatic postmenopausal status (age-related) | | (natural) | + + documented in this encounter"
--- OUTSIDE RECORDS SUMMARY | ~2019-09-12 | XMS | Encounter Summary ---
Demographics + + + | Address | [address] | | | [place] [address] | + + + | Home Phone | | + + + | Preferred Language | Unknown | + + + | Marital Status | | + + + | Amish Affiliation | 1077 | + + + | Race | Unknown | + + + | Ethnic Group | Unknown | + + + Author + + + | Author | [facility] | | | and [place] | + + + | Organization | [facility] | | | [...] Team Providers + +------+ + | Care Digital Photo Printer Name | Role | Phone | + +------+ + PCP | Unavailable | + +------+ + Encounter Details +--------+ + + + + | Date | Type | Department | Care Team | Description | +--------+ + + + + | 03/02/ | Hospital | [facility] | Jay Vinson, | | | 2012 | Encounter | [facility] | [address], | | | | | [facility] [address] | [facility] [place], [place] | | | | | [facility], | [address] | | | | | [place] [address] | [phone] | | | | | [phone] | | | +--------+ + + + [...] | | | | | | [place] [address] | | | | | | [phone] | | | | | | | | +--------+---------+ + + + | 05/08/ | Office | Neurology | Garth Vinson MD | | | 2019 | Visit | | [address] | | | | | | [place] | | | | | | [address] | | | | | | | | +--------+---------+ + + + documented as of this encounter Visit Diagnoses Not on filedocumented in this encounter"
--- OUTSIDE RECORDS SUMMARY | ~2019-09-12 | XMS | Encounter Summary ---
Demographics + + + | Address | [address] | | | [place] [address] | + + + | Home Phone | | + + + | Preferred Language | Unknown | + + + | Marital Status | | + + + | Yazidi Affiliation | 1077 | + + + | Race | Unknown | + + + | Ethnic Group | Unknown | + + + Author + + + | Author | [facility] | | | and [place] | + + + | Organization | [facility] | | | [...] Team Providers + +------+ + | Care Nuclear Equipment Sales Engineer Name | Role | Phone | + +------+ + PCP | Unavailable | + +------+ + Encounter Details +--------+ + + + + | Date | Type | Department | Care Team | Description | +--------+ + + + + | 11/17/ | Hospital | [facility] | Emmy Roberts, | | | 2013 | Encounter | [facility] | [facility] [address] | | | | | [address] | [place] | | | | | [place] | [address] | | | | | [address] | | | | | | [phone] | | | +--------+ + + + [...] | | | | | | [place] [address] | | | | | | [phone] | | | | | | | | +--------+---------+ + + + | 07/13/ | Office | Neurology | Garth Vinson MD | | | 2019 | Visit | | [address] | | | | | | [place] | | | | | | [phone] | | | | | | | | +--------+---------+ + + + documented as of this encounter Visit Diagnoses Not on filedocumented in this encounter"
--- OUTSIDE RECORDS SUMMARY | ~2019-09-12 | XMS | Encounter Summary ---
Demographics + + + | Address | [address] | | | [place] [address] | + + + | Home Phone | | + + + | Preferred Language | Unknown | + + + | Marital Status | | + + + | Buddhist Affiliation | 1077 | + + + | Race | Unknown | + + + | Ethnic Group | Unknown | + + + Author + + + | Author | [facility] | | | and [place] | + + + | Organization | [facility] | | | [...] Team Providers + +------+ + | Care Oyster Unloader Name | Role | Phone | + +------+ + PCP | Unavailable | + +------+ + Encounter Details +--------+ + + + + | Date | Type | Department | Care Team | Description | +--------+ + + + + | 01/12/ | Hospital | [facility] | Yair Gleason, | | | 2012 | Encounter | HOSPITAL RESPIRATORY | MD 2011 | | | | | THERAPY [address] | [place] | | | | | [place] | [address] | | | | | [address] | [phone] | | | | | [phone] | | | +--------+ + + + [...] | | | | | | [place] [address] | | | | | | [phone] | | | | | | | | +--------+---------+ + + + | 05/08/ | Office | Neurology | Garth Vinson MD | | | 2019 | Visit | | [address] | | | | | | [place], [place] | | | | | | [address] | | | | | | | | +--------+---------+ + + + documented as of this encounter Visit Diagnoses Not on filedocumented in this encounter"
--- OUTSIDE RECORDS SUMMARY | ~2019-09-12 | XMS | Encounter Summary ---
Demographics + + + | Address | [address] | | | [place] [address] | + + + | Home Phone [...] | | + + +---------+ + | Yohannse Kyree | ECON | Unknown | | + + +---------+ + Care Team Providers + +------+ + | Care Director [employer] Name | Role | Phone | + +------+ + PCP | Unavailable | + +------+ + Encounter Details +--------+ + + + + | Date | Type | Department | Care Team | Description | +--------+ + + + + | 06/03/ | Hospital | [facility] | Cole Addison | | | 2012 | Encounter | [facility] ORTHOP[facility]IC | MD [address] | | | | | [address] [place] | [place] | | | | | [place] | [place], [place] | | | | | [address] | [address] | | | | | [phone] | [phone] | | | | | | | [...] | | | | | | [place] [address] | | | | | | [phone] | | | | | | | | +--------+---------+ + + + | 05/08/ | Office | Neurology | Garth Vinson MD | | | 2020 | Visit | | [address] | | | | | | [place] | | | | | | [address] | | | | | | | | +--------+---------+ + + + documented as of this encounter Visit Diagnoses Not on filedocumented in this encounter"
--- OUTSIDE RECORDS SUMMARY | ~2019-09-12 | XMS | Clinical Summary ---
Demographics + + + | Address | [address] [facility] | | | [place] [address] | + + + | Home Phone | | + + + | Preferred Language | Unknown | + + + | Marital Status | | + + + | Pentecostalism Affiliation | 1038 | + + + | Race | Unknown | + + + | Ethnic Group | Unknown | + + + Author + + + | Author | [facility] [email or web address] (Historical as of | | | 06-12-19) | + + + | Organization | [facility] [email or web address] (Historical as of | | | 06-12-19) | + + + | Address | Unknown | + + + | Phone | Unavailable | + + + Support + + + + + | Name | Relationship | Address | Phone | + + + + + | Cristina Donnelly | ECON | [address] | | | | | [facility] [place] | | | | | [address] | | + + + + + Care Team Providers + +------+ + | Care Food Production Supervisor Name | Role | Phone | + +------+ + | Yair Gleason MD | PP | | + +------+ + Allergies + + + + + + | Active Allergy | Reactions | Severity | Noted | Comments | | | | | Date | | + + + + + + | Codeine | Other (See Comments) | Medium | 08/27/20 | unknown | | | | | 14 | | + + + + + + | Morphine | Other (See Comments) | Medium | 08/27/20 | Unknown rxn | | | | | 14 | | + + + + + + Current Medications + + +--------+---------+------+------+-------+ | Prescription | Sig. | Disp. | Refills | Star | End | Statu | | | | | | t | Date | s | | | | | | Date | | | + + +--------+---------+------+------+-------+ | topiramate | Take 1 tablet by | 60 | 0 | 11/0 | | Activ | | (TOPAMAX) 25 MG | mouth every 12 | tablet | | 4/20 | | e | | tablet | (twelve) hours. | | | 14 | | | + + +--------+---------+------+------+-------+ | gemfibrozil | Take 600 mg by mouth | | | | | Activ | | (LOPID) 600 MG | 2 (two) times daily | | | | | e | | tablet | before meals. | | | | | | + + +--------+---------+------+------+-------+ | spironolactone | Take 25 mg by mouth | | | | | Activ | | (ALDACTONE) 25 MG | daily. | | | | | e | | tablet | | | | | | | + + +--------+---------+------+------+-------+ | lovastatin | Take 20 mg by mouth | | | | | Activ | | (MEVACOR) 20 MG | nightly. | | | | | e | | tablet | | | | | | | + + +--------+---------+------+------+-------+ | potassium chloride | Take 10 mEq by mouth | | | | | Activ | | (K-TAB) 10 MEQ CR | 2 (two) times daily | | | | | e | | tablet | with meals. | | | | | | + + +--------+---------+------+------+-------+ | levothyroxine | Take 88 mcg by mouth | | | | | Activ | | (SYNTHROID) 88 MCG | every morning | | | | | e | | tablet | before breakfast. | | | | | | + + +--------+---------+------+------+-------+ | omeprazole | Take 20 mg by mouth | | | | | Activ | | (PRILOSEC) 20 MG | every morning before | | | | | e | | capsule | breakfast. | | | | | | + + +--------+---------+------+------+-------+ | | Take 25 mg by mouth | | | | | Activ | | hydrochlorothiazide | daily. | | | | | e | | (HYDRODIURIL) 25 MG | | | | | | | | tablet | | | | | | | + + +--------+---------+------+------+-------+ | fluocinonide | Apply topically 2 | | | | | Activ | | (LIDEX) 0.05 % | (two) times daily. | | | | | e | | external solution | | | | | | | + + +--------+---------+------+------+-------+ | mupirocin | Apply topically 4 | | | | | Activ | | (BACTROBAN) 2 % | (four) times daily. | | | | | e | | ointment | | | | | | | + + +--------+---------+------+------+-------+ Active Problems + + + | Problem | Noted Date | + + + | Rash, drug; keppra | 08/29/2014 | + + + | Seizure (HCC) | 08/27/2014 | + + + | Epigastric abdominal pain | 08/27/2014 | + + + | Lactate blood increase | 08/27/2014 | + + + | Hypokalemia | 08/27/2014 | + + + | ARF (acute renal failure) | 08/27/2014 | + + + | Left flank pain | 08/27/2014 | + + + | Pyelonephritis, acute | 08/27/2014 | + + + | GERD (gastroesophageal reflux disease) | 08/27/2014 | + + + | D-dimer, elevated | 08/27/2014 | + + + | Diabetes mellitus, type 2 | | + + + | Hypertension | | + + + | Hypothyroid | | + + + Family History + + +------+ + | Medical History | Relation | Name | Comments | + + +------+ + | Alcoholism | Father | | | + + +------+ + | Cancer | Father | | | + + +------+ + | Diabetes | Mother | | | + + [...] | | + +-------+ +--------+------+ + + +---------+ + | Alcohol Use | Drinks/We | oz/Week | Comments | | | ek | | | + + +---------+ + | No | | | | + + +---------+ + + + + | Sex Assigned at | Date Recorded | | | | + + + | Not on file | | + + + Last Filed Vital Signs + + + + | Vital Sign | Reading | Time Taken | + + + + | Blood Pressure | 117/57 | 08/30/2014 11:21 AM PST | + + + + | Pulse | 79 | 08/30/2014 11:21 AM PST | + + + + | Temperature | 36.9 C (98.5 F) | 08/30/2014 11:21 AM PST | + + + + | Respiratory Rate | 16 | 08/30/2014 11:21 AM PST | + + + + | Oxygen Saturation | 97% | 08/30/2014 11:21 AM PST | + + + + | Inhaled Oxygen | - | - | | Concentration | | | + + + + | Weight | 70 kg (154 lb 5.2 | 08/29/2014 7:58 PM PST | | | oz) | | + + + + | Height | - | - | + + + + | Body Mass Index | - | - | + + + + Plan of Treatment Not on file Results Not on filefrom Last 3 Months Insurance + +--------+ +--------+-------+---------+ | Payer | Benefi | Subscriber | Type | Phone | Address | | | t Plan | ID | | | | | | / | | | | | | | Group | | | | | + +--------+ +--------+-------+---------+ | MA - GENERIC | MA-GEN | [id number] | Medica | | | | | VIJI | | re | | | + +--------+ +--------+-------+---------+ + +--------+ +--------+-------+ + | Guarantor Name | Accoun | Relation to | Date | Phone | Billing Address | | | t Type | Patient | of | | | | | | | | | | + +--------+ +--------+-------+ + | CRISTINA DONNELLY | Person | Self | [birth year] | [address] [facility] | | | al/Fam | | 1941 | | [place], [place] | | | ava | | | | [address] | + +--------+ +--------+-------+ +"
--- OUTSIDE RECORDS SUMMARY | ~2019-09-12 | XMS | Encounter Summary ---
Demographics + + + | Address | [address] [facility] [facility] | | | [place] [address] | + + + | Home Phone | | + + + | Preferred Language | Unknown | + + + | Marital Status | | + + + | Orthodoxy Affiliation | 1077 | + + + [...] Providers + +------+ + | Care Manager Community Relations Name | Role | Phone | + +------+ + PCP | Unavailable | + +------+ + Encounter Details +--------+ + + + + | Date | Type | Department | Care Team | Description | +--------+ + + + + | 07/03/ | Hospital | [facility] | Cole Addison | | | 2012 | Encounter | [facility]THOPEDIC | MD [address] | | | | | [address] | [place] | | | | | [place] | [place], [place] | | | | | [address] | [address] | | | | | [phone] | [phone] | | | | | | | [...] | | | | | | [place] [address] | | | | | | [phone] | | | | | | | | +--------+---------+ + + + | 05/08/ | Office | Neurology | Garth Vinson MD | | | 2020 | Visit | | [address] | | | | | | [place] | | | | | | [address] | | | | | | | | +--------+---------+ + + + documented as of this encounter Visit Diagnoses Not on filedocumented in this encounter"
--- OUTSIDE RECORDS SUMMARY | ~2019-09-12 | XMS | Encounter Summary ---
Demographics + + + | Address | [address] [facility] | | | [place] [address] | + + + | Home Phone | | + + + | Preferred Language | Unknown | + + + | Marital Status | | + + + | Roman Catholic Affiliation | 1077 | + + + [...] Team Providers + +------+ + | Care Snowsport Instructor Name | Role | Phone | + +------+ + PCP | Unavailable | + +------+ + Encounter Details +--------+ + + + + | Date | Type | Department | Care Team | Description | +--------+ + + + + | 08/17/ | Hospital | [facility] | Cole Addison | | | 2012 | Encounter | HOSPITAL GENERIC OP | MD [address] | | | | | CONVERSION | [place] | | | | | DEPART[address] | [place] | | | | | [address] | [address] | | | | | [place] | [phone] | | | | | [address] | | | | | | [phone] | | | +--------+ + + + [...] | | | | | | [place] [address] | | | | | | [phone] | | | | | | | | +--------+---------+ + + + | 05/08/ | Office | Neurology | Garth Vinson MD | | | 2020 | Visit | | [address] | | | | | | [place] | | | | | | [address] | | | | | | | | +--------+---------+ + + + documented as of this encounter Visit Diagnoses Not on filedocumented in this encounter"
--- OUTSIDE RECORDS SUMMARY | ~2019-09-12 | XMS | Encounter Summary ---
Demographics + + + | Address | [address] [facility] | | | [place] [address] | + + + | Home Phone | | + + + | Preferred Language | Unknown | + + + | Marital Status | | + + + | Spiritism Affiliation | 1077 | + + + [...] Team Providers + +------+ + | Care Retail Worker Name | Role | Phone | + +------+ + PCP | Unavailable | + +------+ + Encounter Details +--------+ + + + + | Date | Type | Department | Care Team | Description | +--------+ + + + + | 11/28/ | Hospital | [facility], Levon C, BOWLING BALL MOLDER | | | 2016 | Encounter | HOSPITAL XRAY 900 | [address] | | | | | [address] | [place], [place] | | | | | [place], [place] | [address] | | | | | [address] | [phone] | | | | | [phone] | | | +--------+ + + + [...] | | | | | | [place] [address] | | | | | | [phone] | | | | | | | | +--------+---------+ + + + | 05/08/ | Office | Neurology | Garth Vinson MD | | | 2019 | Visit | | [address] | | | | | | [place] | | | | | | [address] | | | | | | | [...] humeral head. | | | Job No.: [id number] Read By: DEL WALKER MD | | | Released By: DEL WALKER MD Date: 11/29/2015 10:58 | | + + + + + | Procedure Note | + + | Dileep, Rad Results In - 09/03/2017 9:36 PM PST [...] | | the humeral head. Job No.: [id number] Read By: DEL WALKER MD Released | [...] | | | | | |Job No.: [id number] | | | |Read By: DEL WALKER MD | | | |Released By: DEL WALKER MD | |Date: 11/29/2015 10:58 | | | | | + + documented in this encounter Visit Diagnoses Not on filedocumented in this encounter"
--- OUTSIDE RECORDS SUMMARY | ~2019-09-12 | XMS | Encounter Summary ---
Demographics + + + | Address | [address] [facility] | | | [place] [address] | + + + | Home Phone | | + + + | Preferred Language | Unknown | + + + | Marital Status | | + + + | Latter-Day Affiliation | 1077 | + + + | Race | Unknown | + + + | Ethnic Group | Unknown | + + + Author + + + | Author | [facility] | | | and [place] | + + + | Organization | [facility] | | | [...] Team Providers + +------+ + | Care Counter Intelligence Name | Role | Phone | + +------+ + PCP | Unavailable | + +------+ + Encounter Details +--------+ + + + + | Date | Type | Department | Care Team | Description | +--------+ + + + + | 02/01/ | Hospital | [facility] | Yair Gleason, | | | 2009 | Encounter | HOSPITAL XRAY [address] | [address] | | | | | [address] | [place], [place] | | | | | [place] | [address] | | | | | [address] | [phone] | | | | | [phone] | | | +--------+ + + + [...] | | | | | | [place] [address] | | | | | | [phone] | | | | | | | | +--------+---------+ + + + | 05/08/ | Office | Neurology | Garth Vinson MD | | | 2019 | Visit | | [address] | | | | | | [place], [place] | | | | | | [address] | | | | | | | | +--------+---------+ + + + documented as of this encounter Visit Diagnoses Not on filedocumented in this encounter"
--- OUTSIDE RECORDS SUMMARY | ~2019-09-12 | XMS | Encounter Summary ---
Demographics + + + | Address | [address] [facility] | | | [place] [address] | + + + | Home Phone | | + + + | Preferred Language | Unknown | + + + | Marital Status | | + + + | Yazidism Affiliation | 1077 | + + + | Race | Unknown | + + + | Ethnic Group | Unknown | + + + Author + + + | Author | [facility] | | | and [place] | + + + | Organization | [facility] | | | [...] Team Providers + +------+ + | Care Die Cut Operator Name | Role | Phone | + +------+ + PCP | Unavailable | + +------+ + Encounter Details +--------+ + + + + | Date | Type | Department | Care Team | Description | +--------+ + + + + | 03/17/ | Hospital | [facility] | Garth Vinson MD | | | 2012 | Encounter | [facility]PITAL REG[facility] | [address] | | | | | [facility] [address] | [place], [place] | | | | | [facility] [facility], | [address] | | | | | [place] [address] | | | | | | [phone] | | | +--------+ + + + [...] | | | | | | [place] [address] | | | | | | [phone] | | | | | | | | +--------+---------+ + + + | 05/08/ | Office | Neurology | Garth Vinson MD | | | 2019 | Visit | | [address] | | | | | | [place], [place] | | | | | | [address] | | | | | | | | +--------+---------+ + + + documented as of this encounter Visit Diagnoses Not on filedocumented in this encounter"
--- OUTSIDE RECORDS SUMMARY | ~2019-09-12 | XMS | Encounter Summary ---
Demographics + + + | Address | [address] [facility] | | | [place] [address] | + + + | Home Phone [...] + + | Author | [facility] | | | and [place] | + + + | Organization | [facility] | | [...] Team Providers + +------+ + | Care Doughnut Dough Mixer Name | Role | Phone | + +------+ + PCP | Unavailable | + +------+ + Encounter Details +--------+ + + + + | Date | Type | Department | Care Team | Description | +--------+ + + + + | 06/03/ | Hospital | [facility] | [place] | | | 2012 | Encounter | [facility] REG[facility] | [address] | | | | | MEDICAL CLIN[facility] [address] | [address] | | | | | [address] [facility], | [facility], [place] | | | | | [place] [address] | [address] | | | | | [phone] | [phone] | | | | | | | [...] | | | | | [address] [place], | | | | | | [place] [address] | | | | | | [phone] | | | | | | | | +--------+---------+ + + + | 05/08/ | Office | Neurology | Garth Vinson MD | | | 2019 | Visit | | [address] | | | | | | [place] | | | | | | [address] | | | | | | | | +--------+---------+ + + + documented as of this encounter Visit Diagnoses Not on filedocumented in this encounter"
--- OUTSIDE RECORDS SUMMARY | ~2019-09-12 | XMS | Encounter Summary ---
Demographics + + + | Address | [address] | | | [place] [address] | + + + | Home Phone | | + + + | Preferred Language | Unknown | + + + | Marital Status | | + + + | Sikhism Affiliation | 1077 | + + + | Race | Unknown | + + + | Ethnic Group | Unknown | + + + Author + + + | Author | [facility] | | | and [place] | + + + | Organization | [facility] | | | [...] Team Providers + +------+ + | Care Workers' Compensation Magistrate Name | Role | Phone | + [...] | | | | DEPARTMENT [address] | [place] | | | | | [address] | [address] | | | | | [place] | [phone] | | | | | [address] | | | | | | [phone] | | | +--------+ + + + [...] | | | | | | [place] [address] | | | | | | [phone] | | | | | | | | +--------+---------+ + + + | 05/08/ | Office | Neurology | Garth Vinson MD | | | 2020 | Visit | | [address] | | | | | | [place] | | | | | | [address] | | | | | | | | +--------+---------+ + + + documented as of this encounter Visit Diagnoses Not on filedocumented in this encounter"
--- OUTSIDE RECORDS SUMMARY | ~2019-09-12 | XMS | Encounter Summary ---
Demographics + + + | Address | [address] [facility] | | | [place] [address] | + + + | Home Phone | | + + + | Preferred Language | Unknown | + + + | Marital Status | | + + + | Orthodoxy Affiliation | 1077 | + + + | Race | Unknown | + + + | Ethnic Group | Unknown | + + + Author + + + | Author | [facility] | | | and [place] | + + + | Organization | [facility] | | | [...] Team Providers + +------+ + | Care Straightedge Man Name | Role | Phone | + +------+ + PCP | Unavailable | + +------+ + Encounter Details +--------+ + + + + | Date | Type | Department | Care Team | Description | +--------+ + + + + | 03/06/ | Hospital | [facility] | Garth Vinson MD | | | 2017 | Encounter | HOSPITAL NEUROLOGY | [address] | | | | | CL[address] | [place] | | | | | [address] [place], | [address] | | | | | [place] [address] | | | | | | [phone] | | | +--------+ + + + [...] | | | | | | [place] [address] | | | | | | [phone] | | | | | | | | +--------+---------+ + + + | 05/08/ | Office | Neurology | Garth Vinson MD | | | 2019 | Visit | | [address] | | | | | | [place] | | | | | | [address] | | | | | | | | +--------+---------+ + + + documented as of this encounter Visit Diagnoses Not on filedocumented in this encounter"
--- OUTSIDE RECORDS SUMMARY | ~2019-09-12 | XMS | Encounter Summary ---
Demographics + + + | Address | [address] [facility] | | | [place] [address] | + + + | Home Phone | | + + + | Preferred Language | Unknown | + + + | Marital Status | | + + + | Religion Affiliation | 1077 | + + + [...] Team Providers + +------+ + | Care Multiplex Operator Name | Role | Phone | [...] [place] | | | | | [place] | [place], [place] | | | | | [address] | [address] | | | | | [phone] | [phone] | | | | | | | [...] | | | | | | [place] [address] | | | | | | [phone] | | | | | | | | +--------+---------+ + + + | 05/08/ | Office | Neurology | Garth Vinson MD | | | 2020 | Visit | | [address] | | | | | | [place] | | | | | | [address] | | | | | | | | +--------+---------+ + + + documented as of this encounter Visit Diagnoses Not on filedocumented in this encounter"
--- OUTSIDE RECORDS SUMMARY | ~2019-09-12 | XMS | Encounter Summary ---
Demographics + + + | Address | [address] [facility] | | | [place] [address] | + + + | Home Phone [...] Team Providers + +------+ + | Care Development System Efficiency Manager Name | Role | Phone | + +------+ + PCP | Unavailable | + +------+ + Encounter Details +--------+ + + + + | Date | Type | Department | Care Team | Description | +--------+ + + + + | 05/05/ | Hospital | [facility] | Boris Medeiros | | | 2013 | Encounter | HOSPITAL OBSTETRICS | MD [address] | | | | | [address] | [address] | | | | | [place], [place] | [place], [place] | | | | | [address] | [address] | | | | | [phone] | [phone] | | | | | | | [...] | | | | | | [place] [address] | | | | | | [phone] | | | | | | | | +--------+---------+ + + + | 05/08/ | Office | Neurology | Garth Vinson MD | | | 2020 | Visit | | [address] | | | | | | [place], [place] | | | | | | [address] | | | | | | | | +--------+---------+ + + + documented as of this encounter Visit Diagnoses Not on filedocumented in this encounter"
--- OUTSIDE RECORDS SUMMARY | ~2019-09-12 | XMS | Encounter Summary ---
Demographics + + + | Address | [address] [facility] | | | [place] [address] | + + + | Home Phone | | + + + | Preferred Language | Unknown | + + + | Marital Status | | + + + | Yazidi Affiliation | 1077 | + + + | Race | Unknown | + + + | Ethnic Group | Unknown | + + + Author + + + | Author | [facility] | | | and [place] | + + + | Organization | [facility] | | [...] Providers + +------+ + | Care Chief Digital Officer Name | Role | Phone | + +------+ + | Yair Gleason MD | PCP | | + +------+ + Reason for Visit + + + | Reason | Comments | + + + | Lab Results | | + + + Encounter Details +--------+ + + + + | Date | Type | Department | Care Team | Description | +--------+ + + + + | 05/24/ | Telephone | [facility] | Garth Vinson MD | Lab Results | | 2019 | | HOSPITAL NEUROLOGY | [address] | | | | | CLINIC [address] | [place] | | | | | [address] [place], | [address] | | | | | [place] [address] | | | | | | [phone] | | | +--------+ + + + [...] | | | | | | [place] [address] | | | | | | [phone] | | | | | | | | +--------+---------+ + + + | 05/08/ | Office | Neurology | Garth Vinson MD | | | 2020 | Visit | | [address] | | | | | | [place] | | | | | | [phone] | | | | | | | | +--------+---------+ + + + documented as of this encounter Visit Diagnoses Not on filedocumented in this encounter"
--- OUTSIDE RECORDS SUMMARY | ~2019-09-12 | XMS | Encounter Summary ---
Demographics + + + | Address | [address] [facility] [facility] [address] | | | [place] [address] | + + + | Home Phone | | + + + | Preferred Language | Unknown | + + + | Marital Status | | + + + | Christian Affiliation | 1077 | + + + | Race | Unknown | + + + | Ethnic Group | Unknown | + + + Author + + + | Author | [facility] | | | and [place] | + + + | Organization | [facility] | | | [...] Team Providers + +------+ + | Care Contact Centre Supervisor Name | Role | Phone | + +------+ + PCP | Unavailable | + +------+ + Encounter Details +--------+ + + + + | Date | Type | Department | Care Team | Description | +--------+ + + + + | 07/07/ | Hospital | [facility] | [place], | | | 2011 | Encounter | [facility] [place] [facility] | Hiro Mariano, | | | | | [address] | [address] | | | | | [place] | [place] | | | | | [address] | [address] | | | | | [phone] | [phone] | | | | | | | [...] | | | | | | [place] [address] | | | | | | [phone] | | | | | | | | +--------+---------+ + + + | 05/08/ | Office | Neurology | Garth Vinson MD | | | 2019 | Visit | | [address] | | | | | | [place] | | | | | | [address] | | | | | | | | +--------+---------+ + + + documented as of this encounter Visit Diagnoses Not on filedocumented in this encounter"
--- OUTSIDE RECORDS SUMMARY | ~2019-09-12 | XMS | Encounter Summary ---
Demographics + + + | Address | [address] [facility] [facility] [facility] | | | [place] [address] | + + + | Home Phone [...] Team Providers + +------+ + | Care Seal Skinner Name | Role | Phone | + +------+ + PCP | Unavailable | + +------+ + Encounter Details +--------+ + + + + | Date | Type | Department | Care Team | Description | +--------+ + + + + | 06/05/ | Hospital | [facility] | Garth Vinson MD | | | 2012 | Encounter | [facility] | [address] | | | | | [facility]ICAL [address] | [place], [place] | | | | | [address] [facility], | [address] | | | | | [place] [address] | | | | | | [phone] | | | +--------+ + + + [...] | | | | | | [place] [address] | | | | | | [phone] | | | | | | | | +--------+---------+ + + + | 05/08/ | Office | Neurology | Garth Vinson MD | | | 2019 | Visit | | [address] | | | | | | [place], [place] | | | | | | [address] | | | | | | | | +--------+---------+ + + + documented as of this encounter Visit Diagnoses Not on filedocumented in this encounter"
--- OUTSIDE RECORDS SUMMARY | ~2019-09-12 | XMS | Encounter Summary ---
Demographics + + + | Address | [address] [facility] | | | [place] [address] | + + + | Home Phone [...] Team Providers + +------+ + | Care Flour Mixer Helper Name | Role | Phone | + +------+ + PCP | Unavailable | + +------+ + Encounter Details +--------+ + + + + | Date | Type | Department | Care Team | Description | +--------+ + + + + | 08/06/ | Hospital | [facility] | Garth Vinson MD | | | 2012 | Encounter | [facility] | [address] | | | | | MEDICAL [facility] | [place], [place] | | | | | [address] [facility], | [address] | | | | | [place] [address] | | | | | | [phone] | | | +--------+ + + + [...] | | | | | | [place] [address] | | | | | | [phone] | | | | | | | | +--------+---------+ + + + | 05/08/ | Office | Neurology | Garth Vinson MD | | | 2019 | Visit | | [address] | | | | | | [place], [place] | | | | | | [address] | | | | | | | | +--------+---------+ + + + documented as of this encounter Visit Diagnoses Not on filedocumented in this encounter"
--- OUTSIDE RECORDS SUMMARY | ~2019-09-12 | XMS | Encounter Summary ---
Demographics + + + | Address | [address] | | | [place] [address] | + + + | Home Phone | | + + + | Preferred Language | Unknown | + + + | Marital Status | | + + + | Bahai Affiliation | 1077 | + + + | Race | Unknown | + + + | Ethnic Group | Unknown | + + + Author + + + | Author | [facility] | | | and [place] | + + + | Organization | [facility] | | | [...] Providers + +------+ + | Care Plastic Tubing Insulation Supervisor Name | Role | Phone | [...] | | | | [place], [place] | [address] | | | | | [address] | [phone] | | | | | [phone] | | | +--------+ + + + [...] | | | | | | [place] [address] | | | | | | [phone] | | | | | | | | +--------+---------+ + + + | 05/08/ | Office | Neurology | Garth Vinson MD | | | 2019 | Visit | | [address] | | | | | | [place] | | | | | | [address] | | | | | | | [...]
--- OUTSIDE RECORDS SUMMARY | ~2019-09-12 | XMS | Encounter Summary ---
Demographics + + + | Address | [address] | | | [place] [address] | + + + | Home Phone | | + + + | Preferred Language | Unknown | + + + | Marital Status | | + + + | Jainism Affiliation | 1077 | + + + | Race | Unknown | + + + | Ethnic Group | Unknown | + + + Author + + + | Author | [facility] | | | and [place] | + + + | Organization | [facility] | | | [...] Team Providers + +------+ + | Care Fuse Coiler Name | Role | Phone | + [...] | | | | [place] | [address] | | | | | [address] | [phone] | | | | | [phone] | | | +--------+ + + + [...] | | | | | | [place] [address] | | | | | | [phone] | | | | | | | | +--------+---------+ + + + | 05/08/ | Office | Neurology | Garth Vinson MD | | | 2019 | Visit | | [address] | | | | | | [place], [place] | | | | | | [address] | | | | | | | | +--------+---------+ + + + documented as of this encounter Visit Diagnoses Not on filedocumented in this encounter"
--- OUTSIDE RECORDS SUMMARY | ~2019-09-12 | XMS | Encounter Summary ---
Demographics + + + | Address | [address] | | | [place] [address] | + + + | Home Phone | | + + + | Preferred Language | Unknown | + + + | Marital Status | | + + + | Christian Affiliation | 1077 | + + + | Race | Unknown | + + + | Ethnic Group | Unknown | + + + Author + + + | Author | [facility] | | | and [place] | + + + | Organization | [facility] | | | and [...] Team Providers + +------+ + | Care Demand Inspector Name | Role | Phone | + [...] | | | [place], [place] | [address] | | | | | [address] | [phone] | | | | | [phone] | | | +--------+ + + + [...] | | | | | | [place] [address] | | | | | | [phone] | | | | | | | | +--------+---------+ + + + | 05/08/ | Office | Neurology | Garth Vinson MD | | | 2019 | Visit | | [address] | | | | | | [place] | | | | | | [address] | | | | | | | | +--------+---------+ + + + documented as of this encounter Visit Diagnoses Not on filedocumented in this encounter"
--- OUTSIDE RECORDS SUMMARY | ~2019-09-12 | XMS | Encounter Summary ---
Demographics + + + | Address | [address] | | | [place] [address] | + + + | Home Phone | | + + + | Preferred Language | Unknown | + + + | Marital Status | | + + + | Presybeterian Affiliation | 1077 | + + + [...] Team Providers + +------+ + | Care Varnishing Machine Operator Name | Role | Phone | + +------+ + PCP | Unavailable | + +------+ + Encounter Details +--------+ + + + + | Date | Type | Department | Care Team | Description | +--------+ + + + + | 03/20/ | Hospital | [facility] | Juan Pablo Singh, | | | 2016 | Encounter | [facility] | DO [address] , | | | | | [address] | [place], [place] | | | | | [place], [place] | [address] | | | | | [address] | [phone] | | | | | [phone] | | | +--------+ + + + [...] | | | | | | [place] [address] | | | | | | [phone] | | | | | | | | +--------+---------+ + + + | 05/08/ | Office | Neurology | Garth Vinson MD | | | 2019 | Visit | | [address] | | | | | | [place] | | | | | | [address] | | | | | | | | +--------+---------+ + + + documented as of this encounter Procedures + +--------+ + + + | Procedure Name | Priori | Date/Time | Associated Diagnosis | Comments | | | ty | | | | + +--------+ + + + | XR HIP RIGHT 2-3 | Routin | 03/20/2016 | | Results for this | | VIEWS | e | 1:32 PM | | procedure are in the | | | | PDT | | results section. | + +--------+ + + + documented in this encounter Results XR Hip Right 2-3 Views (03/20/2016 1:32 PM PDT) + + | Specimen | + + | | + + + + + | Narrative | Performed At | + + + | ORIGINAL ORTHO HIP, TWO VIEWS, RIGHT CLINICAL | | | STATEMENT: Pain. REPORT: Bipolar hip prosthesis is present. | | | Multiple somewhat rectangular-shaped opacities project over the pelvis | | | inlet which may relate to ingested material such as pills. No | | | periprosthetic lucencies are seen. 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 No periprosthetic lucencies or acute finding are | | | identified. Job No.: [id number] Read By: DEL | | | Saji WALKER MD Released By: DEL WALKER MD Date: 03/20/2016 | | | 20:18 | | + + + + + | Procedure Note | + + | Dileep, Rad Results In - 09/03/2017 10:37 PM PST ORIGINAL ORTHO HIP, TWO VIEWS, | | RIGHT CLINICAL STATEMENT:Pain. REPORT:Bipolar hip prosthesis is present. Multiple | | somewhat rectangular-shaped opacities project over the pelvis inlet which may relate to | | ingested material such as pills. No periprosthetic lucencies are seen. | | IMPRESSION:Bipolar hip prosthesis. No periprosthetic lucencies or acute finding are | | identified. Job No.: [id number] Read By: DEL WALKER MD Released By: | | KAY BARRAZAate: 03/20/2016 20:18 | | | |REPORT: | |Bipolar hip prosthesis is present. Multiple somewhat rectangular-shaped opacities project o jared the pelvis inlet which may relate to ingested material such as pills. | | | |No periprosthetic lucencies are seen. | | | |IMPRESSION: | |Bipolar hip prosthesis. No periprosthetic lucencies or acute finding are identified. | | | | | |Job No.: [id number] | | | |Read By: DEL WALKER MD | | | |Released By: DEL WALKER MD | |Date: 03/20/2016 20:18 | | | | | + + documented in this encounter Visit Diagnoses Not on filedocumented in this encounter"
--- OUTSIDE RECORDS SUMMARY | ~2019-09-12 | XMS | Encounter Summary ---
Demographics + + + | Address | [address] | | | [place] [address] | + + + | Home Phone | | + + + | Preferred Language | Unknown | + + + | Marital Status | | + + + | Uatsdin Affiliation | 1077 | + + + [...] Team Providers + +------+ + | Care Beam Builder Name | Role | Phone | + [...] | | | [place], [place] | [address] | | | | | [address] | [phone] | | | | | [phone] | | | +--------+ + + + [...] | | | | | | [place] [address] | | | | | | [phone] | | | | | | | | +--------+---------+ + + + | 05/08/ | Office | Neurology | Garth Vinson MD | | | 2019 | Visit | | [address] | | | | | | [place] | | | | | | [address] | | | | | | | [...] arthroplasty changes. JOB | | | #: [id number] Digitally Released by: Ankur Hooker Read By: | | | ANKUR HOOKER MD Date: 01/09/2017 16:28 | | + + + + + | Procedure Note | + + | Eliazar Falk Results In - 11/06/2017 11:54 AM PST [...] | | | | | JOB #: [id number] | | Digitally Released by: Ankur Hooker | | | | | | Read By: ANKUR HOOKER MD | | Date: 01/09/2017 16:28 | | | + + documented in this encounter Visit Diagnoses Not on filedocumented in this encounter"
--- OUTSIDE RECORDS SUMMARY | ~2019-09-12 | XMS | Encounter Summary ---
Demographics + + + | Address | [address] | | | [place] [address] | + + + | Home Phone | | + + + | Preferred Language | Unknown | + + + | Marital Status | | + + + | Zoroastrianism Affiliation | 1077 | + + + | Race | Unknown | + + + | Ethnic Group | Unknown | + + + Author + + + | Author | [facility] | | | and [place] | + + + | Organization | [facility] | | | and [...] Team Providers + +------+ + | Care Cell Preparer Name | Role | Phone | + [...] | | | [place], [place] | [address] | | | | | [address] | [phone] | | | | | [phone] | | | +--------+ + + + [...] | | | | | | [place] [address] | | | | | | [phone] | | | | | | | | +--------+---------+ + + + | 05/08/ | Office | Neurology | Garth Vinson MD | | | 2019 | Visit | | [address] | | | | | | [place] | | | | | | [address] | | | | | | | [...] | | | evaluation. Read By: DEL Dan | | Saji WALKER MD Released By: DEL WALKER MD Date: 11/08/2015 | | | 17:18 | | + + + + + | Procedure Note | + + | Dileep, Rad Results In - 09/03/2017 9:24 PM [...] PA and lateral for further evaluation. Job#: [id number] Read By: | | DEL WALKER MD Released By: DEL WALKER, MDDate: 11/08/2015 17:18 | |REPORT: | |No [...] | Dileep, Rad Results In - 09/03/2017 9:24 PM [...] changes L5-S1, left greater than right. Job#: [id number] Read | | By: DEL WALKER MD [...] loosening is identified. Job#: | | | [id number] Read By: DEL WALKER MD Released By: DEL WALKER MD Date: 11/08/2015 17:17 | | + + + + + | Procedure Note | + + | Dileep, Rad Results In - 09/03/2017 9:24 PM [...] loosening is identified. D: | | 11/08/15Job#: [id number] Read By: DEL WALKER MD Released By: [...]
--- OUTSIDE RECORDS SUMMARY | ~2019-09-12 | XMS | Encounter Summary ---
Demographics + + + | Address | [address] | | | [place] [address] | + + + | Home Phone | | + + + | Preferred Language | Unknown | + + + | Marital Status | | + + + | Catholic Affiliation | 1077 | + + + | Race | Unknown | + + + | Ethnic Group | Unknown | + + + Author + + + | Author | [facility] | | | and [place] | + + + | Organization | [facility] | | | [...] Team Providers + +------+ + | Care Oracle Programmer Analyst Name | Role | Phone | + +------+ + PCP | Unavailable | + +------+ + Encounter Details +--------+ + + + + | Date | Type | Department | Care Team | Description | +--------+ + + + + | 08/26/ | Hospital | [facility] | [place], | | | 2013 | Encounter | [facility] | Hiro Mariano, | | | | | [facility] [address] | [address] | | | | | [address] [facility], | [facility], [place] | | | | | [place] [address] | [address] | | | | | [phone] | [phone] | | | | | | | [...] | | | | | | [place] [address] | | | | | | [phone] | | | | | | | | +--------+---------+ + + + | 05/08/ | Office | Neurology | Garth Vinson MD | | | 2019 | Visit | | [address] | | | | | | [place] | | | | | | [address] | | | | | | | | +--------+---------+ + + + documented as of this encounter Visit Diagnoses Not on filedocumented in this encounter"
--- OUTSIDE RECORDS SUMMARY | ~2019-09-12 | XMS | Encounter Summary ---
Demographics + + + | Address | [address] | | | [place] [address] | + + + | Home Phone | | + + + | Preferred Language | Unknown | + + + | Marital Status | | + + + | Pentecostalism Affiliation | 1077 | + + + | Race | Unknown | + + + | Ethnic Group | Unknown | + + + Author + + + | Author | [facility] | | | and [place] | + + + | Organization | [facility] | | | [...] Team Providers + +------+ + | Care Application Support Administrator Name | Role | Phone | [...] | | | | [place] | [address] | | | | | [address] | [phone] | | | | | [phone] | | | +--------+ + + + [...] | | | | | | [place] [address] | | | | | | [phone] | | | | | | | | +--------+---------+ + + + | 05/08/ | Office | Neurology | Garth Vinson MD | | | 2019 | Visit | | [address] | | | | | | [place], [place] | | | | | | [address] | | | | | | | | +--------+---------+ + + + documented as of this encounter Visit Diagnoses Not on filedocumented in this encounter"
--- OUTSIDE RECORDS SUMMARY | ~2019-09-12 | XMS | Encounter Summary ---
Demographics + + + | Address | [address] | | | [place] [address] | + + + | Home Phone [...] Team Providers + +------+ + | Care Pier Hand Name | Role | Phone | + +------+ + PCP | Unavailable | + +------+ + Encounter Details +--------+ + + + + | Date | Type | Department | Care Team | Description | +--------+ + + + + | 01/08/ | Hospital | [place] [facility] Chasteen, Audi | | | 2012 | Encounter | [facility] | MD Lorena [address] | | | | | [address]I [address] | [place] | | | | | [place] | [address] | | | | | [address] | [phone] | | | | | [phone] | | | +--------+ + + + [...] | | | | | | [place] [address] | | | | | | [phone] | | | | | | | | +--------+---------+ + + + | 05/08/ | Office | Neurology | Garth Vinson MD | | | 2019 | Visit | | [address] | | | | | | [place], [place] | | | | | | [address] | | | | | | | | +--------+---------+ + + + documented as of this encounter Visit Diagnoses Not on filedocumented in this encounter"
--- OUTSIDE RECORDS SUMMARY | ~2019-09-12 | XMS | Encounter Summary ---
Demographics + + + | Address | [address] [address] | | | [place] [address] | + + + | Home Phone | | + + + | Preferred Language | Unknown | + + + | Marital Status | | + + + | Holiness Affiliation | 1077 | + + + [...] Team Providers + +------+ + | Care Automatic Spinning Lathe Setter Name | Role | Phone | [...] | | | CENTER [address] | [facility] | | | | | [place], [place] | [place] [address] | | | | | [address] | [phone] | | | | | [phone] | | | +--------+ + + + [...] | | | | | | [place] [address] | | | | | | [phone] | | | | | | | | +--------+---------+ + + + | 07/13/ | Office | Neurology | Garth Vinson MD | | | 2019 | Visit | | [address] | | | | | | [place] | | | | | | [id number] | | | | | | | | +--------+---------+ + + + documented as of this encounter Visit Diagnoses Not on filedocumented in this encounter"
--- OUTSIDE RECORDS SUMMARY | ~2019-09-12 | XMS | Encounter Summary ---
Demographics + + + | Address | [address] | | | [place] [address] | + + + | Home Phone [...] Team Providers + +------+ + | Care Bending Machine Set Up Operator Name | Role | Phone | [...] | | | | [place] | [address] | | | | | [address] | [phone] | | | | | [phone] | | | +--------+ + + + [...] | | | | | | [place] [address] | | | | | | [phone] | | | | | | | | +--------+---------+ + + + | 05/08/ | Office | Neurology | Garth Vinson MD | | | 2019 | Visit | | [address] | | | | | | [place], [place] | | | | | | [address] | | | | | | | | +--------+---------+ + + + documented as of this encounter Visit Diagnoses Not on filedocumented in this encounter"
--- OUTSIDE RECORDS SUMMARY | ~2019-09-12 | XMS | Encounter Summary ---
Demographics + + + | Address | [address] | | | [place] [address] | + + + | Home Phone | | + + + | Preferred Language | Unknown | + + + | Marital Status | | + + + | Advent Affiliation | 1077 | + + + | Race | Unknown | + + + | Ethnic Group | Unknown | + + + Author + + + | Author | [facility] | | | and [place] | + + + | Organization | [facility] | | | [...] Team Providers + +------+ + | Care Granite Chip Terrazzo Finisher Name | Role | Phone | [...] | | MEDICAL [facility] [address] | [facility] [place], [place] | | | | | [facility], | [address] | | | | | [place] [address] | [phone] | | | | | [phone] | | | +--------+ + + + [...] | | | | | | [place] [address] | | | | | | [phone] | | | | | | | | +--------+---------+ + + + | 05/08/ | Office | Neurology | Garth Vinson MD | | | 2019 | Visit | | [address] | | | | | | [place] | | | | | | [address] | | | | | | | | +--------+---------+ + + + documented as of this encounter Visit Diagnoses Not on filedocumented in this encounter"
--- OUTSIDE RECORDS SUMMARY | ~2019-09-12 | XMS | Encounter Summary ---
Demographics + + + | Address | [address] | | | [place] [address] | + + + | Home Phone | | + + + | Preferred Language | Unknown | + + + | Marital Status | | + + + | Mosque Affiliation | 1077 | + + + | Race | Unknown | + + + | Ethnic Group | Unknown | + + + Author + + + | Author | [facility] | | | and [place] | + + + | Organization | [facility] | | [...] Team Providers + +------+ + | Care Hims Manager Name | Role | Phone | [...] | | | [place] | [address] | | | | | [address] | | | | | | [phone] | | | +--------+ + + + [...] participate in the care of this patient. [facility] Signed and Approved by: JOHN [place] [...] | | | | | | [place] [address] | | | | | | [phone] | | | | | | | | +--------+---------+ + + + | 05/08/ | Office | Neurology | Garth Vinson MD | | | 2019 | Visit | | [address] | | | | | | [place], [place] | | | | | | [address] | | | | | | | | +--------+---------+ + + + documented as of this encounter Visit Diagnoses Not on filedocumented in this encounter"
--- OUTSIDE RECORDS SUMMARY | ~2019-09-12 | XMS | Encounter Summary ---
Demographics + + + | Address | [address] [facility] [facility] | | | [place] [address] | + + + | Home Phone [...] Team Providers + +------+ + | Care Tool Polishing Machine Operator Name | Role | Phone [...] [address] | | | | | [place] [address] | | | | | | [phone] | | | +--------+ + + + [...] | | | | | | [place] [address] | | | | | | [phone] | | | | | | | | +--------+---------+ + + + | 05/08/ | Office | Neurology | Garth Vinson MD | | | 2020 | Visit | | [address] | | | | | | [place] | | | | | | [phone] | | | | | | | | +--------+---------+ + + + documented as of this encounter Visit Diagnoses Not on filedocumented in this encounter"
--- OUTSIDE RECORDS SUMMARY | ~2019-09-12 | XMS | Encounter Summary ---
Demographics + + + | Address | [address] [address] | | | [place] [address] | + + + | Home Phone | | + + + | Preferred Language | Unknown | + + + | Marital Status | | + + + | Gnosticist Affiliation | 1077 | + + + [...] Team Providers + +------+ + | Care Film Processing Shift Supervisor Name | Role | Phone | [...] | | | | [place] | [address] | | | | | [address] | [phone] | | | | | [phone] | | | +--------+ + + + [...] | | | | | | [place] [address] | | | | | | [phone] | | | | | | | | +--------+---------+ + + + | 05/08/ | Office | Neurology | Garht Vinson MD | | | 2019 | Visit | | [address] | | | | | | [place] | | | | | | [phone] | | | | | | | | +--------+---------+ + + + documented as of this encounter Visit Diagnoses Not on filedocumented in this encounter"
--- OUTSIDE RECORDS SUMMARY | ~2019-09-12 | XMS | Encounter Summary ---
Demographics + + + | Address | [address] [facility] | | | [place] [address] | + + + | Home Phone | | + + + | Preferred Language | Unknown | + + + | Marital Status | | + + + | Buddhism Affiliation | 1077 | + + + | Race | Unknown | + + + | Ethnic Group | Unknown | + + + Author + + + | Author | [facility] | | | and [place] | + + + | Organization | [facility] | | [...] Team Providers + +------+ + | Care Cook Night Name | Role | Phone | + [...] | | | | [place], [place] | [address] | | | | | [address] | [phone] | | | | | [phone] | | | +--------+ + + + [...] | | | | | | [place] [address] | | | | | | [phone] | | | | | | | | +--------+---------+ + + + | 05/08/ | Office | Neurology | Garth Vinson MD | | | 2019 | Visit | | [address] | | | | | | [place] | | | | | | [address] | | | | | | | [...] + | Dileep, Rad Results In - 01/01/2018 4:14 PM PST [...]
--- OUTSIDE RECORDS SUMMARY | ~2019-09-12 | XMS | Encounter Summary ---
Demographics + + + | Address | [address] | | | [place] [address] | + + + | Home Phone [...] | Author | [facility] | | | and [place] | + + + | Organization | [facility] | | | and [...] Team Providers + +------+ + | Care Cosmetic Sales Name | Role | Phone | + +------+ + | Yair Gleason MD | PCP | | + +------+ + Reason for Visit + + + | Reason | Comments | + + + | Treatment Order | physical therapy | + + + Encounter Details +--------+ + + + + | Date | Type | Department | Care Team | Description | +--------+ + + + + | 04/02/ | Telephone | [facility] | Dari Hansen RN | Treatment Order | | 2019 | | [facility] | | (physical therapy) | | | | CLINIC [address] | | | | | | [address] [place], | | | | | | [place] [address] | | | | | | [phone] | | | +--------+ + + + [...] | | | | | | [address] [facility] [place], | | | | | | [place] [address] | | | | | | [phone] | | | | | | | | +--------+---------+ + + + | 05/08/ | Office | Neurology | Garth Vinson MD | | | 2020 | Visit | | [address] | | | | | | [place] | | | | | | [address] | | | | | | | | +--------+---------+ + + + documented as of this encounter Visit Diagnoses Not on filedocumented in this encounter"
--- OUTSIDE RECORDS SUMMARY | ~2019-09-12 | XMS | Encounter Summary ---
Demographics + + + | Address | [address] | | | [place] [address] | + + + | Home Phone [...] Team Providers + +------+ + | Care Display Screen Fabricator Name | Role | Phone | + [...] [place] | | | | | [facility] [facility], | [address] | | | | | [place] [address] | | | | | | [phone] | | | +--------+ + + + [...] | | | | | | [place] [address] | | | | | | [phone] | | | | | | | | +--------+---------+ + + + | 05/08/ | Office | Neurology | Garth Vinson MD | | | 2019 | Visit | | [address] | | | | | | [place], [place] | | | | | | [address] | | | | | | | | +--------+---------+ + + + documented as of this encounter Visit Diagnoses Not on filedocumented in this encounter"
--- OUTSIDE RECORDS SUMMARY | ~2019-09-12 | XMS | Encounter Summary ---
Demographics + + + | Address | [address] | | | [place] [address] | + + + | Home Phone [...] Team Providers + +------+ + | Care Cistern Room Working Supervisor Name | Role | Phone | + +------+ + | Yair Gleason MD | PCP | | + +------+ + Reason for Visit +--------+ + | Reason | Comments | +--------+ + | Other | f/u after fall in clinic | +--------+ + Encounter Details +--------+ + + + + | Date | Type | Department | Care Team | Description | +--------+ + + + + | 03/02/ | Telephone | [facility] | Sarah Corbett, | Other (f/u after | | 2018 | | [facility] | RN | fall in clinic) | | | | [address] [place] | | | | | | [place] | | | | | | [address] | | | | | | [phone] | | | +--------+ + + + [...] | | | | | | [address] [facility] [place], | | | | | | [place] [address] | | | | | | [phone] | | | | | | | | +--------+---------+ + + + | 05/08/ | Office | Neurology | Garth Vinson MD | | | 2020 | Visit | | [address] | | | | | | [place] | | | | | | [address] | | | | | | | | +--------+---------+ + + + documented as of this encounter Visit Diagnoses Not on filedocumented in this encounter"
--- OUTSIDE RECORDS SUMMARY | ~2019-09-12 | XMS | Encounter Summary ---
Demographics + + + | Address | [address] | | | [place] [address] | + + + | Home Phone | | + + + | Preferred Language | Unknown | + + + | Marital Status | | + + + | Mormonism Affiliation | 1077 | + + + [...] Providers + +------+ + | Care Medical Record Technician Name | Role | Phone | [...] | | | | | DR [address] [place], | [address] | | | | | [place] [address] | | | | | | [phone] | | | +--------+ + + + [...] | | | | | | [place] [address] | | | | | | [phone] | | | | | | | | +--------+---------+ + + + | 05/08/ | Office | Neurology | Garth Vinson MD | | | 2020 | Visit | | [address] | | | | | | [place] | | | | | | [phone] | | | | | | | | +--------+---------+ + + + documented as of this encounter Visit Diagnoses Not on filedocumented in this encounter"
--- OUTSIDE RECORDS SUMMARY | ~2019-09-12 | XMS | Encounter Summary ---
Demographics + + + | Address | [address] | | | [place] [address] | + + + | Home Phone [...] Team Providers + +------+ + | Care Mud Worker Name | Role | Phone | [...] CLINIC [address] | [place] | ([facility]); Diabetic | | | | DR [address] [place], | [place] [address] | polyneuropathy | | | | [place] [address] | [phone] | associated with type | | | | [phone] | | 2 diabetes mellitus | | | | | | ([facility]); Numbness | +--------+ + + [...] with Mikie SALAS in October. documented in thi s encounter Plan of Treatment +--------+---------+ + + + | Date | Type | Specialty | Care Team | Description | +--------+---------+ + + + | 11/11/ | Office | Neurology | Kathie, | | | 2019 | Visit | | [address] | | | | [address] [place], | | | | | | [place] [address] | | | | | | [phone] | | | | | | | [...] the | | | | PST | ([facility]) Diabetic | results section. | | | | | polyneuropathy | | | | | | associated with type | | | | | | 2 diabetes mellitus | | | | | | ([facility]) Numbness | | + +--------+ + + + | EMG STUDY | Routin | 09/10/2019 | Diabetes mellitus | Results for this | | | e | 2:00 PM | type 2 in nonobese | procedure are in the | | | | PST | ([facility]) Diabetic | results section. | | | | | polyneuropathy | | | | | | associated with type | | | | | | 2 diabetes mellitus | | | | | | ([facility]) Numbness | | + +--------+ + + + | EMG STUDY | Routin | 09/10/2019 | Diabetes mellitus | Results for this | | | e | 2:00 PM | type 2 in nonobese | procedure are in the | | | | PST | ([facility]) Diabetic | results section. | | | | | polyneuropathy | | | | | | associated with type | | | | | | 2 diabetes mellitus | | | | | | ([facility]) Numbness | | + +--------+ + + + documented in this encounter Visit Diagnoses + + | Diagnosis | + + | Diabetes mellitus type 2 in nonobese ([facility]) Type II or unspecified type diabetes | | mellitus without mention of complication, not stated as uncontrolled | + + | Diabetic polyneuropathy associated with type 2 diabetes mellitus ([facility]) | + + | Numbness Disturbance of skin sensation | + + documented in this encounter
--- OUTSIDE RECORDS SUMMARY | ~2019-09-12 | XMS | Encounter Summary ---
Demographics + + + | Address | [address] | | | [place] [address] | + + + | Home Phone [...] Team Providers + +------+ + | Care Income Tax Preparer Name | Role | Phone | + +------+ + | Yair Gleason MD | PCP | | + +------+ + Reason for Visit + + + | Reason | Comments | + + + | Knee Pain | right knee pain, DOI 11/2017 | + + + Encounter Details +--------+---------+ + + + | Date | Type | Department | Care Team | Description | +--------+---------+ + + + | 01/22/ | Office | [facility] | Erik Hoffman, | Primary | | 2018 | Visit | [facility] | [address] | osteoarthritis of | | | | [address] | [place]I [place]SHLEY [place] | right knee (Primary | | | | [place] | [id number] | Dx) | | | | [address] | | | | | | [phone] | | | +--------+---------+ + + + Social History [...] + | Blood Pressure | 132/62 | 01/22/2018 2:49 PM | | | | | PDT | | + + + + + | Pulse | 83 | 01/22/2018 2:49 PM | | | | | PDT | | + + + + + | Temperature | - | - | | + + + + + | Respiratory Rate | 16 | 01/22/2018 2:49 PM | | | | | PDT | | + + + + + | Oxygen Saturation | 99% | 01/22/2018 2:49 PM | | | | | PDT | | + + + + + | Inhaled Oxygen | - | - | | | Concentration | | | | + + + + + | Weight | 52.2 kg (115 lb) | 01/22/2018 2:49 PM | | | | | PDT | | + + + + + | Height | 154.9 cm (5' 1") | 01/22/2018 2:49 PM | | | | | PDT | | + + + + + | Body Mass Index | 21.73 | 01/22/2018 2:49 PM | | | | | PDT | | + + + + + documented in this encounter Patient Instructions Patient Instructions Erik Hoffman MD - 01/22/2018 3:00 PM PDT Understanding Osteoarthritis of the Knee A joint is a place where two bones meet. The knee is called a hinge joint. This joint is fo rmed where the thighbone (femur) meets the shinbone (tibia). A healthy knee joint bends free ly. Knee osteoarthritis is a condition where parts of the knee joint wear out. This can lead to pain, stiffness, and limited movement. What is osteoarthritis? Every joint contains a smooth tissue called cartilage. Cartilage cushions the ends of bones and helps bones in a joint glide smoothly against each other. Knee osteoarthritis occurs wh en cartilage in the knee joint begins to break down and wear away. Bones may become exposed and rub together. The cartilage may become irritated and rough. This prevents smooth movemen t of the joint and can lead to pain. Causes of osteoarthritis of the knee Causes can include: Wear and tear from normal use over time Overuse of the knee during sports or work activities Being overweight. This increases stress on the knee joint. Misalignment of the knee joint Injury to the knee Symptoms of osteoarthritis of the knee Common symptoms include: Pain and swelling around the joint. The pain and swelling get worse with activity and be tter with rest. Grinding sound when moving the knee Reduced knee movement Knee stiffness. This is often worse first thing in the morning. Treating osteoarthritis of the knee Osteoarthritis is a long-term condition. Treatment usually focuses on managing symptoms. Tr eatment may include: Qumw-loe-sxbmxav or prescription medicines taken by mouth to help relieve pain and swell ing Injections of medicine into the joint to help relieve symptoms for a time A weight-loss plan for people who are overweight A plan of physical therapy and exercises to improve the strength and flexibility of the muscles around the knee Heat or cold therapy to help relieve pain and stiffness Assistive devices that help with movement, such as a cane or a walker Assistive devices that make activities of daily life easier, such as raised toilet seats or shower bars If other treatments don t do enough to relieve symptoms, you may need surgery to replace the joint. During this surgery, the damaged joint is removed. An artificial knee joint is th en put into place. This can help relieve pain and stiffness and restore movement of the knee . When to call your healthcare provider Call your healthcare provider right away if you have any of these: Fever of 100.4F (38C) or higher, or as directed Symptoms that don t get better with prescribed medicines or get worse New symptoms Date Last Reviewed: 01/04/201619995789-5357 [employer]. [address] [place] [address], [place] [address]. All righ ts reserved. This information is not intended as a substitute for professional medical care. Always follow your healthcare professional's instructions. documented in this encounter Progress Notes Erik Hoffman MD - 01/22/2018 3:00 PM PDTFormatting of this note might be different f rom the original. [facility] Patient Name: Cristina Buckner | Age: 77 y.o. | : 1940 | [id number] | Author: Erik Hoffman MD | Date of Encounter: 01/22/2018 Medications: Current Outpatient Prescriptions on File Prior to Visit Medication Sig Dispense Refill aspirin 325 mg [...] CR tablet topiramate (TOPAMAX) 25 mg tablet TAKE ONE TABLET BY MOUTH TWICE A DAY 60 tablet 5 No current facility-administered medications on file prior to visit. Allergies: Codeine; Amoxicillin; Morphine; and Sulfa antibiotics Vitals: BP 132/62 | Pulse 83 | Resp 16 | Temp | Wt 52.2 kg (115 lb) | BMI Body mass index is 21. 73 kg/m. Chief Complaint: Chief Complaint Patient presents with Knee Pain right knee pain, DOI 11/2017 Date of Injury: About a month ago per patient History of Present Illness: Cristina Buckner is a 77 y.o. woman who states her knees have never previously given her any trouble. Evidently, she was tasked with getting a pair of suspenders from a high cabinet i n her trailer, and in so doing, needed to crawl along a table. Part way through, she heard a loud popping sensation from the right knee. It has remained painful with intermittent pal pable and painful mechanical symptoms in the right knee. 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 Today is her first evaluation in Orthopaedics. Review of Pertinent Systems: Patient denies any visit problem associated neurologic and vascular system symptoms of numb ness, tingling or weakness during this history today. Physical Exam: Right knee shows no swelling, neutral alignment, modest joint line tenderness, pain with pa tellar compression and obvious patellar crepitus. Ligamentous exam intact, extensor mechani sm intact and neurovascular status intact in right foot. Imaging/Labs/Special Study Results: Visit problem associated images and findings reviewed by me today with the patient include: advanced tricompartmental OA of the right knee Discussion: 20 minutes were spent with patient today, more than 50% of which was in education and couns eling about her condition: acute compression injury related flare of baseline osteoarthritis of the right knee; and the treatment options: including all conservative means for OA, but in particular a steroid injection in attempts to rapidly alleviate her pain. KNEE INJECTION Extensive PAR discussion took place with patient. Patient has agreed to continue with chan moran. Limitations and short term duration of injection discussed. Procedure: RIGHT KNEE INTRAARTICULAR STEROID INJECTION INJECTION OF MAJOR JOINT/BURSA KENALOG 40MG x 2.5 Diagnosis: RIGHT KNEE OA Consent: Risks, benefits, and alternative treatments discussed and all questions were answ ered. Patient elected to proceed and written consent obtained (see scanned consent form).Roni jacob advised of their right to have diagnostic testing, health care treatment and/or servic es at a facility other than [facility]. Time out to verify correct patient, procedure and site. Description: The area was prepped with chlorhexidine using semi-sterile technique. Using an anterolater al approach, a mixture of 4.0mg of 1% Lidocaine, 4.0ml of 0.5% Ropivacaine & 2.5ml of Kenalo g 40 was injected in knee intra-articular space. A bandage was then placed over the injecti on site. Complications: None Assessment: Cristina was seen today for knee pain. Diagnoses and all orders for this visit: Primary osteoarthritis of right knee Follow up: No Follow-up on file. Current Problem List: Patient Active Problem List Diagnosis Complex partial seizures with consciousness impaired Diabetes mellitus, type 2 Dyslipidemia GERD (gastroesophageal reflux disease) Hip osteoarthritis History of bilateral hip replacements Hypertension Hypothyroid Seizure Transient ischemic attack Osteoarthritis of right knee Past Medical History: Past Medical History: Diagnosis Date Diabetes mellitus (HCC) Stroke (HCC) Past Surgical History: Past Surgical History: Procedure Laterality Date SHOULDER ARTHROSCOPY Left 06/2016 Dr Singh TOTAL HIP ARTHROPLASTY Left Family History Problem Relation Age of Onset Stroke Mother Other (see comment) Father Cancer Father Non-Contributory Social History Social History Marital status: Spouse name: N/A Number of children: N/A Years of education: N/A Social History Main Topics Smoking status: Never Smoker Smokeless tobacco: Never Used Alcohol use No Drug use: No Sexual activity: No Other Topics Concern None Social History Narrative None Thank you for your referral and/or to this patient for choosing my services for their ortho pedic care. Electronically signed by: Erik Hoffman MD 01/22/2018 at 15:17 documented in this encounter Plan of Treatment +--------+---------+ + + + | Date | Type | Specialty | Care Team | Description | +--------+---------+ + + + | 11/11/ | Office | Neurology | Kathie, | | | 2019 | Visit | | [address] | | | | [address] [place], | | | | | | [place] [address] | | | | | | [phone] | | | | | | | | +--------+---------+ + + + | 05/08/ | Office | Neurology | Garth Vinson MD | | 2019 | Visit | | [address] | | | | | | [place] | | | | | | [address] | | | | | | | | +--------+---------+ + + + documented as of this encounter Visit Diagnoses + + | Diagnosis | + + | Primary osteoarthritis of right knee - Primary Primary localized osteoarthrosis, | | lower leg | + + documented in this encounter
--- OUTSIDE RECORDS SUMMARY | ~2019-09-12 | XMS | Encounter Summary ---
Demographics + + + | Address | [address] | | | [place] [address] | + + + | Home Phone | | + + + | Preferred Language | Unknown | + + + | Marital Status | | + + + | Advent Affiliation | 1077 | + + + | Race | Unknown | + + + | Ethnic Group | Unknown | + + + Author + + + | Author | [facility] | | | and [place] | + + + | Organization | [facility] | | | and [place] | + + + | Address | Unknown | + + + | Phone | Unavailable | + + + Support + + +---------+ + | Name | Relationship | Address | Phone | + + +---------+ + | Williamlaexa Buckner | ECON | Unknown | | + + +---------+ + | Yohannes Kyree | ECON | Unknown | | + + +---------+ + Care Team Providers + +------+ + | Care Roll Forming Machine Set Up Operator Name | Role [...] | | | | [place] | [address] | | | | | [address] | [phone] | | | | | [phone] | | | +--------+ + + + [...] | | | | | | [place] [address] | | | | | | [phone] | | | | | | | | +--------+---------+ + + + | 05/08/ | Office | Neurology | Garth Vinson MD | | | 2019 | Visit | | [address] | | | | | | [place], [place] | | | | | | [address] | | | | | | | | +--------+---------+ + + + documented as of this encounter Visit Diagnoses Not on filedocumented in this encounter"
--- OUTSIDE RECORDS SUMMARY | ~2019-09-12 | XMS | Encounter Summary ---
Demographics + + + | Address | [address] | | | [place] [address] | + + + | Home Phone | | + + + | Preferred Language | Unknown | + + + | Marital Status | | + + + | Shinto Affiliation | 1077 | + + + | Race | Unknown | + + + | Ethnic Group | Unknown | + + + Author + + + | Author | [facility] | | | and [place] | + + + | Organization | [facility] | | | [...] Team Providers + +------+ + | Care Bakery Worker Name | Role | Phone | + +------+ + PCP | Unavailable | + +------+ + Encounter Details +--------+ + + + + | Date | Type | Department | Care Team | Description | +--------+ + + + + | 03/10/ | Hospital | [place] [facility] | Garth Vinson MD | | | 2011 | Encounter | [facility] | [address] | | | | | [address] | [place], [place] | | | | | [place] | [address] | | | | | [address] | | | | | | [phone] | | | +--------+ + + + [...] | | | | | | [place] [address] | | | | | | [phone] | | | | | | | | +--------+---------+ + + + | 05/08/ | Office | Neurology | Garth Vinson MD | | | 2019 | Visit | | [address] | | | | | | [place], [place] | | | | | | [address] | | | | | | | | +--------+---------+ + + + documented as of this encounter Visit Diagnoses Not on filedocumented in this encounter"
--- OUTSIDE RECORDS SUMMARY | ~2019-09-12 | XMS | Encounter Summary ---
Demographics + + + | Address | [address] | | | [place] [address] | + + + | Home Phone | | + + + | Preferred Language | Unknown | + + + | Marital Status | | + + + | Cheondoism Affiliation | 1077 | + + + | Race | Unknown | + + + | Ethnic Group | Unknown | + + + Author + + + | Author | [facility] | | | and [place] | + + + | Organization | [facility] | | | [...] Team Providers + +------+ + | Care Chartered Wealth Manager Name | Role | Phone | [...] [place] | | | | | [address], | [address] | | | | | [place] [address] | | | | | | [phone] | | | +--------+ + + + [...] | | | | | | [place] [address] | | | | | | [phone] | | | | | | | | +--------+---------+ + + + | 05/08/ | Office | Neurology | Garth Vinson MD | | | 2019 | Visit | | [address] | | | | | | [place] | | | | | | [address] | | | | | | | | +--------+---------+ + + + documented as of this encounter Visit Diagnoses Not on filedocumented in this encounter"
--- OUTSIDE RECORDS SUMMARY | ~2019-09-12 | XMS | Encounter Summary ---
Demographics + + + | Address | [address] | | | [place] [address] | + + + | Home Phone | | + + + | Preferred Language | Unknown | + + + | Marital Status | | + + + | Jain Affiliation | 1077 | + + + | Race | Unknown | + + + | Ethnic Group | Unknown | + + + Author + + + | Author | [facility] | | | and [place] | + + + | Organization | [facility] | | | [...] Team Providers + +------+ + | Care Furniture Inspector Name | Role | Phone | + +------+ + PCP | Unavailable | + +------+ + Encounter Details +--------+ + + + + | Date | Type | Department | Care Team | Description | +--------+ + + + + | 08/07/ | Hospital | [facility] | Garth Vinson MD | | | 2015 | Encounter | [facility] | [address] | | | | | [facility] [address] | [place], [place] | | | | | [address] [facility], | [address] | | | | | [place] [address] | | | | | | [phone] | | | +--------+ + + + [...] | | | | | | [place] [address] | | | | | | [phone] | | | | | | | | +--------+---------+ + + + | 05/08/ | Office | Neurology | Garth Vinson MD | | | 2019 | Visit | | [address] | | | | | | [place] | | | | | | [address] | | | | | | | | +--------+---------+ + + + documented as of this encounter Visit Diagnoses Not on filedocumented in this encounter"
--- OUTSIDE RECORDS SUMMARY | ~2019-09-12 | XMS | Encounter Summary ---
Demographics + + + | Address | [address] [facility] | | | [place] [address] | + + + | Home Phone [...] Team Providers + +------+ + | Care Glass Installer Technician Name | Role | Phone | + +------+ + PCP | Unavailable | + +------+ + Encounter Details +--------+ + + + + | Date | Type | Department | Care Team | Description | +--------+ + + + + | 04/22/ | Hospital | [facility] | Juan Pablo Singh, | | | 2017 | Encounter | [facility] | [address] , | | | | | [address] | [place], [place] | | | | | [place], [place] | [address] | | | | | [address] | [phone] | | | | | [phone] | | | +--------+ + + + [...] | | | | | | [place] [address] | | | | | | [phone] | | | | | | | | +--------+---------+ + + + | 05/08/ | Office | Neurology | Garth Vinson MD | | | 2019 | Visit | | [address] | | | | | | [place] | | | | | | [address] | | | | | | | | +--------+---------+ + + + documented as of this encounter Visit Diagnoses Not on filedocumented in this encounter"
--- OUTSIDE RECORDS SUMMARY | ~2019-09-12 | XMS | Encounter Summary ---
Demographics + + + | Address | [address] | | | [place] [address] | + + + | Home Phone [...] Team Providers + +------+ + | Care Summer Nanny Name | Role | Phone | + [...] | | | CLINIC [address] | [place] | ischemias (Primary | | | | DR [place]AYUSH [place], | [address] | Dx); Complex partial | | | | [place] [address] | | seizures with | | | | [phone] | | consciousness | | | | [...] be different from the original. Patient Instructions [facility] Neurology Clinic Dr. Garth Vinson, Neurologist Date:11/24/2017 [...] le, and scrabble, other puzzle games like [employer], [employer]. Play computer/mobile applications such as [employer] and [employer] Gave medical education to avoid sleep deprivation, stimulants, alcohol, or any type of head trauma Any Questions please call ARIANA Chapin or Dr. Vinson at [facility] Neurology Clinic What is a Partial Seizure [...] lead normal, fulfilling lives. Date Last Reviewed: 08/01/201519990272-7464 [employer]. [address] [place] [address], [place] [address]. All righ ts reserved. This information is [...] spell, dizziness, or seizure Date Last Reviewed: 07/27/201619994582-1586 [employer]. [address] [place] [address]. All righ ts reserved. This information is [...] and need help quitting, talk to your althcare team. Testing your blood sugar is the [...] cut down on salt. A dietitian or clinical trial educator can help form a meal plan that works for you even if you are on a low budget. Being activecan help reduce your weight, strengthen your heart, and lower your lipid l evels and blood pressure. Exercise and activity are good for your whole body. Talk to your ealthcare team about increasing your activity safely over time. Keeping your appointmentswith your healthcare provider helps you stay healthy. Go in f or checkups and lab tests as scheduled. Date Last Reviewed: 03/14/201619993737-5347 [employer]. [address] [place] [address]. All righ ts reserved. This information is not intended as a substitute for professional medical care. Always follow your healthcare professional's instructions. documented in this encounter Progress Notes Garth Vinson MD - 11/24/2017 3:00 PM PST Patient: Cristina Buckner Medical Record: [id number] Date of Services: 11/24/2017 Referring Doctor: Yair Gleason MD Chief Complaint: History of seizures, stable History of Present Illness: Miss Buckner was a 69-year-old right-handed lady, seen for neurologic evaluation,with history of seizures, complex partial with secondary generalization, controlled on Topamax 25 mg by mouth twice a day. Recent blood test was performed but try to get these results thru PCP, issac avila patient was unsure whether her Topamax level [...] time, place, and person. Spee is fluent. Memory, attention, comprehension, and general [...] CEREBELLAR EXAMINATION: There is no dysmetria on jepswl-rz-ybrw test. MISCELLANEOUS EXAM: Atraumatic, no evidence of frontal or maxillary sinus tenderness, no ne ck masses, abdomen is soft and nontender, extremities equally palpable pulses Clinical Impression: Hx Sezikamlesh, complex partial with secondary generalization, last seizure [...] daily for stroke prophylaxis Plan: Patient Instructions [facility] Neurology Clinic Dr. Garth Vinson, Neurologist Date:11/24/2017 Name:Cristina Buckner :..1940 Please schedule next follow up appt with Dr. Vinson in 6 months for Hx Sezikamlesh, complex partia l with secondary generalization, last seizure 2 yrs ago Diabetic polyneuropathy, stable S/P cataract removal, right 10/2017 Hypertension Hypothyroidism Hx TIA Suggest reading newspapers. magazines, perform word find exercises such as cross word puzz le, and scrabble, other puzzle games like [employer], Mahjong. Play computer/mobile applications such as [employer] and [employer] Gave medical education to avoid sleep deprivation, stimulants, alcohol, or any type of head trauma Any Questions please call ARIANA Chapin or Dr. Vinson at [facility] Neurology Clinic What is a Partial Seizure [...] lead normal, fulfilling lives. Date Last Reviewed: 08/01/201519997762-3601 [employer]. [address] [place] [address], [place] [address]. All righ ts reserved. This information is [...] scan, or ECG (electrocardiogram), a specialist will revmolly braun it. You ll be told of any new findings that will affect your care. Call 911 Call 911 if any of these occur: Any of your TIA symptoms return New problems with speech, vision, walking, or weakness or numbness of the face or on one side of the body Severe headache, fainting spell, dizziness, or seizure Date Last Reviewed: 07/27/201619996312-0041 [employer]. [address] [place] [address], [place] [address]. All righ ts reserved. This information is [...] and need help quitting, talk to your [facility]. Testing your blood sugar is the [...] cut down on salt. A dietitian or clinical trial educator can help form a meal plan that works for you even if you are on a low budget. Being activecan help reduce your weight, strengthen your heart, and lower your lipid l evels and blood pressure. Exercise and activity are good for your whole body. Talk to your [facility] team about increasing your activity safely over time. Keeping your appointmentswith your healthcare provider helps you stay healthy. Go in f or checkups and lab tests as scheduled. Date Last Reviewed: 03/14/201619992374-1422 [employer]. [address] [place] [address], [place] [address]. All righ ts reserved. This information is not intended as a substitute for professional medical care. Always follow your healthcare professional's instructions. Garth Vinson MD11/24/201715:38 Electronically signed d ocumented in this encounter Plan of Treatment +--------+---------+ + + + | Date | Type | Specialty | Care Team | Description | +--------+---------+ + + + | 11/11/ | Office | Neurology | Kathie, | | | 2019 | Visit | | [address] | | | | [address] [place], | | | | | | [place] [address] | | | | | | [phone] | | | | | | | [...]
--- OUTSIDE RECORDS SUMMARY | ~2019-09-12 | XMS | Encounter Summary ---
Demographics + + + | Address | [address] | | | [place] [address] | + + + | Home Phone [...] Team Providers + +------+ + | Care Human Resources Supervisor Name | Role | Phone | + +------+ + | Yair Gleason MD | PCP | | + +------+ + Reason for Visit +--------+ + | Reason | Comments | +--------+ + | Other | | +--------+ + Encounter Details +--------+ + [...] [address] | | | | | [place] [address] | | | | | | [phone] | | | +--------+ + + + [...] | | | | | | [place] [address] | | | | | | [phone] | | | | | | | | +--------+---------+ + + + | 05/08/ | Office | Neurology | Garth Vinson MD | | | 2020 | Visit | | [address] | | | | | | [place] | | | | | | [address] | | | | | | | | +--------+---------+ + + + documented as of this encounter Visit Diagnoses Not on filedocumented in this encounter"
--- OUTSIDE RECORDS SUMMARY | ~2019-09-12 | XMS | Encounter Summary ---
Demographics + + + | Address | [address] [facility] | | | [place] [address] | + + + | Home Phone [...] Team Providers + +------+ + | Care Mechanical Research Engineer Name | Role | Phone | [...] [address] | | | | | [place] [address] | | | | | | [phone] | | | +--------+--------+ + + + [...] | | | | | | [place] [address] | | | | | | [phone] | | | | | | | | +--------+---------+ + + + | 05/08/ | Office | Neurology | Garth Vinson MD | | | 2019 | Visit | | [address] | | | | | | [place] | | | | | | [address] | | | | | | | | +--------+---------+ + + + documented as of this encounter Visit Diagnoses Not on filedocumented in this encounter"
--- OUTSIDE RECORDS SUMMARY | ~2019-09-12 | XMS | Encounter Summary ---
Demographics + + + | Address | [address] [facility] | | | [place] [address] | + + + | Home Phone | | + + + | Preferred Language | Unknown | + + + | Marital Status | | + + + | Religion Affiliation | 1077 | + + + | Race | Unknown | + + + | Ethnic Group | Unknown | + + + Author + + + | Author | [facility] | | | and [place] | + + + | Organization | [facility] | | [...] Team Providers + +------+ + | Care Model And Dye Person Name | Role | Phone | + [...] | +--------+ + + + + | 05/26/ | Telephone | [facility] | Garth Vinson MD | Lab Results | | 2019 | | HOSPITAL NEUROLOGY | [address] | | | | | CLINIC [address] | [place] | | | | | DR AAYUSH [place], | [address] | | | | | [place] [address] | | | | | | [phone] | | | +--------+ + + + [...] | | | | | | [place] [address] | | | | | | [phone] | | | | | | | | +--------+---------+ + + + | 05/08/ | Office | Neurology | Garth Vinson MD | | | 2020 | Visit | | [address] | | | | | | [place] | | | | | | [phone] | | | | | | | | +--------+---------+ + + + documented as of this encounter Visit Diagnoses Not on filedocumented in this encounter"
--- OUTSIDE RECORDS SUMMARY | ~2019-09-12 | XMS | Encounter Summary ---
Demographics + + + | Address | [address] [facility] [facility] | | | [place] [address] | + + + | Home Phone [...] Team Providers + +------+ + | Care New Product Trainer Name | Role | Phone | + [...] [address] | | | | | [place] [address] | | | | | | [phone] | | | +--------+ + + + [...] | | | | | | [place] [address] | | | | | | [phone] | | | | | | | | +--------+---------+ + + + | 05/08/ | Office | Neurology | Garth Vinson MD | | | 2020 | Visit | | [address] | | | | | | [place] | | | | | | [phone] | | | | | | | | +--------+---------+ + + + documented as of this encounter Visit Diagnoses Not on filedocumented in this encounter"
--- OUTSIDE RECORDS SUMMARY | ~2019-09-12 | XMS | Encounter Summary ---
Demographics + + + | Address | [address] [facility] | | | [place] [address] | + + + | Home Phone [...] Team Providers + +------+ + | Care Philosophy Specialist Name | Role | Phone | [...] | | | CENTER [address] | [facility] | | | | | DR [place], [place] | [place] [address] | | | | | [address] | [phone] | | | | | [phone] | | | +--------+ + + + [...] | | | | | | [place] [address] | | | | | | [phone] | | | | | | | | +--------+---------+ + + + | 07/13/ | Office | Neurology | Garth Vinson MD | | | 2019 | Visit | | [address] | | | | | | [place] | | | | | | [phone] | | | | | | | | +--------+---------+ + + + documented as of this encounter Visit Diagnoses Not on filedocumented in this encounter"
--- OUTSIDE RECORDS SUMMARY | ~2019-09-12 | XMS | Encounter Summary ---
Demographics + + + | Address | [address] [facility] | | | [place] [address] | + + + | Home Phone [...] Team Providers + +------+ + | Care Top Precipitator Operator Helper Name | Role | Phone | + +------+ + PCP | Unavailable | + +------+ + Encounter Details +--------+ + + + + | Date | Type | Department | Care Team | Description | +--------+ + + + + | 07/16/ | Hospital | [facility] | Juan Pablo Singh, | | | 2016 | Encounter | [facility] | DO [address] , | | | | | [address] | [place], [place] | | | | | [place], [place] | [address] | | | | | [address] | [phone] | | | | | [phone] | | | +--------+ + + + [...] | | | | | | [place] [address] | | | | | | [phone] | | | | | | | | +--------+---------+ + + + | 05/08/ | Office | Neurology | Garth Vinson MD | | | 2019 | Visit | | [address] | | | | | | [place] | | | | | | [address] | | | | | | | | +--------+---------+ + + + documented as of this encounter Visit Diagnoses Not on filedocumented in this encounter"
--- OUTSIDE RECORDS SUMMARY | ~2019-09-12 | XMS | Encounter Summary ---
Demographics + + + | Address | [address] [facility] | | | [place] [address] | + + + | Home Phone [...] Team Providers + +------+ + | Care Geochemical Laboratory Technician Name | Role | Phone | [...] Medication Refill | | 2017 | | [facility] | [address] | | | | | CLINIC [address] | [place] | | | | | DR [place]AYUSH [place], | [address] | | | | | [place] [address] | | | | | | [phone] | | | +--------+--------+ + + + [...] | | | | | | [facility], | | | | | | [place] [address] | | | | | | [phone] | | | | | | | | +--------+---------+ + + + | 05/08/ | Office | Neurology | Garth Vinson MD | | | 2019 | Visit | | [address] | | | | | | [place] | | | | | | [address] | | | | | | | [...]
--- OUTSIDE RECORDS SUMMARY | ~2019-09-12 | XMS | Encounter Summary ---
Demographics + + + | Address | [address] [facility] | | | [place] [address] | + + + | Home Phone | | + + + | Preferred Language | Unknown | + + + | Marital Status | | + + + | Orthodox Affiliation | 1077 | + + + [...] Team Providers + +------+ + | Care Fresh Work Wrapper Layer Name | Role | Phone | + [...] | | | [place], [place] | [address] | | | | | [address] | [phone] | | | | | [phone] | | | +--------+ + + + [...] | | | | | | [place] [address] | | | | | | [phone] | | | | | | | | +--------+---------+ + + + | 05/08/ | Office | Neurology | Garth Vinson MD | | | 2019 | Visit | | [address] | | | | | | [place] | | | | | | [address] | | | | | | | [...] PA and lateral for further evaluation. Job#: [id number] Read By: | | DEL WALKER MD [...] changes L5-S1, left greater than right. Job#: [id number] Read | | By: DEL WALKER MD [...] loosening is identified. Job#: | | | [id number] Read By: DEL WALKER MD Released By: [...] loosening is identified. D: | | 11/08/15Job#: [id number] Read By: DEL WALKER MD Released By: [...]
--- OUTSIDE RECORDS SUMMARY | ~2019-09-12 | XMS | Encounter Summary ---
Demographics + + + | Address | [address] [facility] | | | [place] [address] | + + + | Home Phone [...] Team Providers + +------+ + | Care Shutdown Planner Name | Role | Phone | + +------+ + PCP | Unavailable | + +------+ + Encounter Details +--------+ + + + + | Date | Type | Department | Care Team | Description | +--------+ + + + + | 08/26/ | Hospital | [facility] | [place], | | | 2013 | Encounter | [facility] | Hiro Mariano, | | | | | [facility] [address] | [address] | | | | | [address] [facility], | [facility], [place] | | | | | [place] [address] | [address] | | | | | [phone] | [phone] | | | | | | | [...] | | | | | | [place] [address] | | | | | | [phone] | | | | | | | | +--------+---------+ + + + | 05/08/ | Office | Neurology | Garth Vinson MD | | | 2019 | Visit | | [address] | | | | | | [place] | | | | | | [address] | | | | | | | | +--------+---------+ + + + documented as of this encounter Visit Diagnoses Not on filedocumented in this encounter"
--- OUTSIDE RECORDS SUMMARY | ~2019-09-12 | XMS | Encounter Summary ---
Demographics + + + | Address | [address] [facility] | | | [place] [address] | + + + | Home Phone | | + + + | Preferred Language | Unknown | + + + | Marital Status | | + + + | Synagogue Affiliation | 1077 | + + + [...] | | + + +---------+ + | Yhoannes Kyree | ECON | Unknown | | + + +---------+ + Care Team Providers + +------+ + | Care Glue Maker Name | Role | Phone | + +------+ + PCP | Unavailable | + +------+ + Encounter Details +--------+ + + + + | Date | Type | Department | Care Team | Description | +--------+ + + + + | 07/03/ | Hospital | [facility] | Juan Pablo Singh, | | | 2016 | Encounter | [facility] [place] [facility] | DO [address] , | | | | | [address] | [place], [place] | | | | | [place], [place] | [address] | | | | | [address] | [phone] | | | | | [phone] | | | +--------+ + + + [...] | | | | | | [place] [address] | | | | | | [phone] | | | | | | | | +--------+---------+ + + + | 05/08/ | Office | Neurology | Garth Vinson MD | | 2019 | Visit | | [address] | | | | | | [place] | | | | | | [address] | | | | | | | | +--------+---------+ + + + documented as of this encounter Procedures + +--------+ + + + | Procedure Name | Priori | Date/Time | Associated Diagnosis | Comments | | | ty | | | | + +--------+ + + + | POC GLUCOSE, | Routin | 07/03/2016 | | Results for this | | [facility] | e | 9:39 AM | | procedure are in the | | | | PDT | | results section. | + +--------+ + + + | POC GLUCOSE, | Routin | 07/03/2016 | | Results for this | | [facility] | e | 7:33 AM | | procedure are in the | | | | PDT | | results section. | + +--------+ + + + documented in this encounter Results POC Glucose, [facility] (07/03/2016 9:39 AM PDT) + +-------+ + + + | Component | Value | Ref Range | Performed | Pathologist | | | | | At | Signature | + +-------+ + + + | Glucose, | 101 | 70 - 110 mg/dL | EXTERNAL | | | POC | | | LAB | | + +-------+ + + + + + | Specimen | + + | | + + + +---------+ + + | Performing | Address | City/State/Zipcode | Phone Number | | Organization | | | | + +---------+ + + | EXTERNAL LAB | | | | + +---------+ + + POC Glucose, [facility] (07/03/2016 7:33 AM PDT) + +-------+ + + + | Component | Value | Ref Range | Performed | Pathologist | | | | | At | Signature | + +-------+ + + + | Glucose, | 95 | 70 - 110 mg/dL | EXTERNAL | | | POC | | | LAB | | + [...]
--- OUTSIDE RECORDS SUMMARY | ~2019-09-12 | XMS | Encounter Summary ---
Demographics + + + | Address | [address] [facility] | | | [place] [address] | + + + | Home Phone | | + + + | Preferred Language | Unknown | + + + | Marital Status | | + + + | Episcopal Affiliation | 1077 | + + + | Race | Unknown | + + + | Ethnic Group | Unknown | + + + Author + + + | Author | [facility] | | | and [place] | + + + | Organization | [facility] | | [...] Team Providers + +------+ + | Care Crew Dispatcher Name | Role | Phone | + [...] + + | 06/10/ | Telephone | [facility] | Garth Vinson MD | Medication Related | | 2017 | | HOSPITAL NEUROLOGY | [address] | | | | | CLINIC [address] | [place] | | | | | DR [place]AYUSH [place], | [address] | | | | | [place] [address] | | | | | | [phone] | | | +--------+ + + + [...] | | | | | | [facility] [facility] [place], | | | | | | [place] [address] | | | | | | [phone] | | | | | | | | +--------+---------+ + + + | 05/08/ | Office | Neurology | Garth Vinson MD | | | 2020 | Visit | | [address] | | | | | | [place] | | | | | | [address] | | | | | | | [...]
--- OUTSIDE RECORDS SUMMARY | ~2019-09-12 | XMS | Encounter Summary ---
Demographics + + + | Address | [address] [facility] | | | [place] [address] | + + + | Home Phone | | + + + | Preferred Language | Unknown | + + + | Marital Status | | + + + | Caodaism Affiliation | 1077 | + + + [...] Team Providers + +------+ + | Care Catering Barista Name | Role | Phone | + +------+ + PCP | Unavailable | + +------+ + Encounter Details +--------+ + + + + | Date | Type | Department | Care Team | Description | +--------+ + + + + | 12/12/ | Hospital | [facility] | Levon Araujo, MARITZA | | | 2016 | Encounter | HOSP[facility] | [address] | | | | | [address] | [place], [place] | | | | | [place], [place] | [address] | | | | | [address] | [phone] | | | | | [phone] | | | +--------+ + + + [...] | | | | | | [place] [address] | | | | | | [phone] | | | | | | | | +--------+---------+ + + + | 05/08/ | Office | Neurology | Garth Vinson MD | | | 2019 | Visit | | [address] | | | | | | [place] | | | | | | [address] | | | | | | | | +--------+---------+ + + + documented as of this encounter Visit Diagnoses Not on filedocumented in this encounter"
--- OUTSIDE RECORDS SUMMARY | ~2019-09-12 | XMS | Encounter Summary ---
Demographics + + + | Address | [address] [facility] | | | [place] [address] | + + + | Home Phone [...] Team Providers + +------+ + | Care Bar Finish Operator Name | Role | Phone | + +------+ + PCP | Unavailable | + +------+ + Encounter Details +--------+ + + + + | Date | Type | Department | Care Team | Description | +--------+ + + + + | 09/14/ | Hospital | [facility] | Cole Addison | | | 2011 | Encounter | HOSPITAL [facility] | MD [address] | | | | | [address] [place] | [place] | | | | | [place] | [place], [place] | | | | | [address] | [address] | | | | | [phone] | [phone] | | | | | | | [...] | | | | | | [place] [address] | | | | | | [phone] | | | | | | | | +--------+---------+ + + + | 05/08/ | Office | Neurology | Garth Vinson MD | | | 2020 | Visit | | [address] | | | | | | [place] | | | | | | [address] | | | | | | | | +--------+---------+ + + + documented as of this encounter Visit Diagnoses Not on filedocumented in this encounter"
--- OUTSIDE RECORDS SUMMARY | ~2019-09-12 | XMS | Encounter Summary ---
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 Patient Instructions [facility] Neu[facility] Dr. Garth Vinson, [...] le, and scrabble, other puzzle games like [facility], [employer]. Play computer/mobile applications such as [employer] and [employer] Gave medical education to avoid sleep deprivation, stimulants, alcohol, or any type of head trauma Any Questions please call ARIANA Chapin or Dr. Vinson at [facility] What is a [...] lead normal, fulfilling lives. Date Last Reviewed: 08/01/201519994825-3955 [employer]. [address] [place] [address], [place] [address]. All righ ts reserved. This information is [...] spell, dizziness, or seizure Date Last Reviewed: 07/27/201619997592-7370 [employer]. [address] [place] [address]. All righ ts reserved. This information is [...] cut down on salt. A dietitian or primary special educator can help form a meal plan [...] lab tests as scheduled. Date Last Reviewed: 03/14/201619993841-7038 [employer]. [address] [place] [address]. All righ ts reserved. This information is not intended as a substitute for professional medical care. Always follow your healthcare professional's instructions. documented in this encounter Progress Notes Garth Vinson MD - 11/24/2017 3:00 PM PST Patient: Cristina Buckner Medical Record: [id number] Date of Services: 11/24/2017 Referring Doctor: Yair [...] CEREBELLAR EXAMINATION: There is no dysmetria on [id number] test. MISCELLANEOUS EXAM: Atraumatic, no evidence of [...] daily for stroke prophylaxis Plan: Patient Instructions [facility] Dr. Garth Vinson, [...] le, and scrabble, other puzzle games like [employer], [employer]. Play computer/mobile applications such as [employer] and [employer] Gave medical education to avoid sleep deprivation, stimulants, alcohol, or any type of head trauma Any Questions please call ARIANA Chapin or Dr. Vinson at [facility] What is a [...] lead normal, fulfilling lives. Date Last Reviewed: 08/01/201519995069-4400 [employer]. [address] [place] [address], [place] [address]. All righ ts reserved. This information is [...] spell, dizziness, or seizure Date Last Reviewed: 07/27/201619996801-6453 [employer]. [address] [place] [address], [place] [address]. All righ ts reserved. This information is [...] and need help quitting, [facility]. Testing your blood sugar is [...] cut down on salt. A dietitian or primary special educator can help form a meal plan that works for you even if you are on a low budget. Being activecan help reduce your weight, strengthen your heart, and lower your lipid l evels and blood pressure. Exercise and activity are good for your whole body. Talk to your [facility] team about increasing your activity safely over time. Keeping your appointmentswith your healthcare provider helps you stay healthy. Go in f or checkups and lab tests as scheduled. Date Last Reviewed: 03/14/201619993830-0007 [employer]. [address] [place] [address], [place] [address]. All righ ts reserved. This information is [...] | | | | | | [place] [id number] | | | | | | [phone] | | | | | | | [...]
--- OUTSIDE RECORDS SUMMARY | ~2019-09-12 | XMS | Encounter Summary ---
Demographics + + + | Address | [address] | | | [place] [address] | + + + | Home Phone | | + + + | Preferred Language | Unknown | + + + | Marital Status | | + + + | Yarsanism Affiliation | [id number] | + + + | Race | Unknown | + + + | Ethnic Group | Unknown | + + + Author + + + | Author | [facility] | | | and [place] | + + + | Organization | [facility] | | | and [place] | + + + | Address | Unknown | + + + | Phone | Unavailable | + + + Support + + +---------+ + | Name | Relationship | Address | Phone | + + +---------+ + | William Donnelly | ECON | Unknown | | + + +---------+ + | Yohannes Kyree | ECON | Unknown | | + + +---------+ + Care Team Providers + +------+ + | Care Salesperson [employer] Name | Role | Phone | + +------+ + PCP | Unavailable | + +------+ + Encounter Details +--------+ + + + + | Date | Type | Department | Care Team | Description | +--------+ + + + + | 08/27/ | Hospital | [facility] | Aby Bello, | Syncope and | | 2013 - | Encounter | [facility] | [address] | collapse; D-dimer, | | | | CLINICAL DECISION | [place] [address] | elevated; GERD | | 08/30/ | | [address] | [phone] | (gastroesophageal | | 2013 | | [place], [place] | | reflux disease); | | | | [address] | | Lactate blood | | | | [phone] | | increase; Left flank | | | | | | pain; | | | | | | Pyelonephritis, | | | | | | acute; Rash, drug; | | | | | | Epigastric abdominal | | | | | | pain; Hypokalemia; | | | | | | Seizure (HCC); Acute | | | | | | respiratory failure | | | | | | (HCC); Renal | | | | | | insufficiency; | | | | | | Elevated d-dimer; | | | | | | Diabetes mellitus, | | | | | | type 2 (HCC); | | | | | | Hypertension; | | | | | | Hypothyroid; ARF | | | | | | (acute renal | | | | | | failure) ([facility]) | +--------+ + + + + Social [...] + + documented as of this encounter Discharge Summaries García Ferrara MD - 08/30/2014 10:40 AM PSTFormatting of this note might be different f rom the original. Discharge Summaries by García Ferrara MD at 08/30/14 1040 Author: García Ferrara MD Service: Hospitalist Author Type: Physician Filed: 08/30/141939 Date of Service: 08/30/141039 Status: Signed Pricing Associate: García Ferrara MD (Physician) [facility] Service: Hospitalist Discharge Summary Date of Admission: 08/27/2014 Date of Discharge: 08/30/14 Discharge Provider: GARCÍA FERRARA MD Treatment Team: Consulting Physician: Bessie Guerrero MD Admitting Provider: Aby Bello MD Discharge Diagnoses: Principal Problem: Seizure Active Problems: Epigastric abdominal pain Lactate blood increase Hypokalemia ARF (acute renal failure) Left flank pain Pyelonephritis, acute Diabetes mellitus, type 2 Hypertension Hypothyroid GERD (gastroesophageal reflux disease) D-dimer, elevated Rash, drug; keppra Resolved Problems: * No resolved hospital problems. * Final Diagnoses: See note Procedures: * No surgery found * Significant Diagnostic Studies: see note BRIEF HISTORY OF PRESENTATION: As per dr bello's admit h and p """ CHIEF COMPLAINT: Chief Complaint Chief Complaint Patient presents with Loss of Consciousness HISTORY OF PRESENT ILLNESS The patient is a 73 y.o. female with significant past medical history of diabetes mellitus type , hypertension, acid reflux, hypothyroidism. The patient had 2 episodes of seizures, F [id number], treated in [facility]. Three weeks later had the second episode however not on antiepileptic medications. The patient has left flank pain for a week and is currently on ci profloxacin for urinary tract infection. She still has 3 more days of antibiotics left. The patient left [place], [place] last night and was halting at [place]. She had epigastric pr essure localized without radiation to the left arm, jaw, intrascapular area. It felt similar to her acid reflux pain. She had nausea without vomiting. She took Tums and felt better, an d then slept. This morning they drove to [place] and in the [place] There she had told her that she had the same epigastric pressure with nausea and di d not feel well. Mild shortness of breath. This lasted for a few minutes. Subsequently she f elt better. They were heading towards [place] walking out of the [facility] holding her husbands h and when she had acute loss of consciousness. She was slumping to the ground so he caught he r and lowered her to the floor. He thought it was her seizure and laid her on her side. Her eyes were rolling up. She was foaming in the mouth. She had loss of consciousness and urinar y incontinence. She did not have tonic clonic Movements, stool incontinence, lip biting, or tongue biting. EMS was called. Apparently the pulse was feeble per spouse. She was not melchor thing well. Therefore she was intubated in the field for airway protection. She did not have any jerking movements. No report of fall or injury today. The patient was brought to the em ergency room for further evaluation. Laboratory workup showed normal cardiac enzymes and mild acute renal failure with a GFR of 47, creatinine 1.05, hypokalemia of 3.1, diabetes with well controlled hyperglycemia, elevat ed D-dimer at 0.77, lactate level of 4.4, clostridium difficile negative. BNP 9.9. Alcohol l evel normal. EKG did not show any acute injury or ischemia, shows normal sinus rhythm. Vital signs have remained stable. The hospitalist service consulted to admit for seizure, third e pisode""" HOSPITAL COURSE: #1. 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 Ramirez spoke with neurology on-call doctor trevor was placed on Topamax. The patient states she does have a neurologist in [facility] that she see s routinely and she will make an appointment to follow up them very soon. I discussed with the patient the importance of doing so as they may wish to adjust medications and additional ly as it was a possibility of further workup and such. Patient is to be on full seizure precautions which I discussed with her as well as from lizzie alvarado's notes they discussed her as well. #2. Elevated d-dimer - VQ scan low probability - Lower extremity ultrasound negative for DVT - Low probability of pulmonary emboli #3. Urinary tract infection/history -Would recommend Repeat UA negative for pyuria or bacteria and she should follow up with he r primary care provider on this admission as well as any urinary tract symptoms and such. P josh see the CT scan report as there was one area of abnormality that may need to be looked into further depending upon her progress in symptomatology. #4. Acute kidney injury - Resolved with IV fluids - CT renal negative for urolithiasis See report. Recent Labs Lab 08/29/14 0434 08/28/14 0620 08/28/14 0129 08/27/14 1742 NA 138 -- 141 137 K 3.4* 3.3* 2.5* 3.1* CL 107 -- 107 104 CO2 24 -- 25 22* BUN 17 -- 14 19 CREATININE 0.73 -- 0.78 1.05* #5. Type II diabetes Continue home regimen discharge. #6. Hypokalemia Seem to be improved from most recent labs and additionally patient should resume her home r egimen he did find that she is supposed to be on spironolactone and a low-dose of potassium. #7. Hypothyroidism Continued home regimen at discharge #8: Rash: As per prior notes there was suspicion that Keppra may have been the culprit triana jared patient also did have several other medications and such while here I do think at this p oint seems to be stabilizing and continuing with an antihistamine for now would be reasonabl e. The patient was on Benadryl while here we will try Atarax at discharge see if this helps and she should follow-up with her primary care provider. She has no symptoms of angioedema presently and does not report any itching or throats or airway symptoms. Past Medical History Diagnosis Date Hypertension Diabetes mellitus, type 2 Reflux Seizures UTI (lower urinary tract infection) [place] (hard of hearing) Hypothyroid Past Surgical History Procedure Laterality Date Unlisted procedure arthroscopy hip replacement, rt and left Hysterectomy Allergies Allergen Reactions Codeine Other (See Comments) unknown Morphine Other (See Comments) Unknown rxn Prescriptions prior to admission Medication Sig Dispense Refill fluocinonide (LIDEX) 0.05 % external solution Apply topically 2 (two) times daily. gemfibrozil (LOPID) 600 MG tablet Take 600 mg by mouth 2 (two) times daily before meals . hydrochlorothiazide (HYDRODIURIL) 25 MG tablet Take 25 mg by mouth daily. levothyroxine (SYNTHROID) 88 MCG tablet Take 88 mcg by mouth every morning before break fast. lovastatin (MEVACOR) 20 MG tablet Take 20 mg by mouth nightly. mupirocin (BACTROBAN) 2 % ointment Apply topically 4 (four) times daily. omeprazole (PRILOSEC) 20 MG capsule Take 20 mg by mouth every morning before breakfast. potassium chloride (K-TAB) 10 MEQ CR tablet Take 10 mEq by mouth 2 (two) times daily wi th meals. spironolactone (ALDACTONE) 25 MG tablet Take 25 mg by mouth daily. DISCHARGE EXAM Vital Signs: BP 117/57 | Pulse 79 | Temp(Src) 98.5 F (36.9 C) (Oral) | Resp 16 | Wt 70 kg (154 lb 5. 2 oz) | SpO2 97% | ? No Temp: [97.9 F (36.6 C)-98.5 F (36.9 C)] 98.5 F (36.9 C) (08/30 1121) BP: (108-127)/(54-58) 117/57 mmHg (08/30 1121) Heart Rate: [68-80] 79 (08/30 1121) Resp: [16] 16 (08/30 1121) SpO2: [95 %-97 %] 97 % (08/30 1121) Weight: [70 kg (154 lb 5.2 oz)] 70 kg (154 lb 5.2 oz) (08/29 1958) Patient Vitals for the past 24 hrs: BP Temp Temp src Pulse Resp SpO2 Weight 08/30/14 1121 117/57 mmHg 98.5 F (36.9 C) Oral 79 16 97 % - 08/30/14 0736 127/58 mmHg 97.9 F (36.6 C) Oral 80 16 95 % - 08/30/14 0406 108/55 mmHg 98.3 F (36.8 C) Oral 70 16 95 % - 08/29/14 2333 108/54 mmHg 98.2 F (36.8 C) Oral 68 16 96 % - 08/29/14 1958 109/58 mmHg 98.3 F (36.8 C) Oral 74 16 97 % 70 kg (154 lb 5.2 oz) Temp (24hrs), Av.2 F (36.8 C), Min:97.9 F (36.6 C), Max:98.5 F (36.9 C) Systolic (24hrs), Av mmHg, Min:108 mmHg, Max:127 mmHg Diastolic (24hrs), Av mmHg, Min:54 mmHg, Max:58 mmHg I&O Current Shift: I&O Yesterday: I&O Last 3 Shifts: No intake or output data in the 24 hours ending 08/30/14 1930 I&O Detailed Table: Physical Exam Constitutional: She is oriented to person, place, and time. She appears well-developed and well-nourished. No distress. HENT: Head: Mouth/Throat: Oropharynx is clear and moist. No oropharyngeal exudate. Patient has a approximate 6 x 5 cm indurated slightly erythematous rash to her right cheek area. Smaller area to back of neck and left ear has small area of dry skin seen has been m arked with black felt. pen and seems to be receeding on right side presently Eyes: No scleral icterus. Pulmonary/Chest: Effort normal and breath sounds normal. Abdominal: Soft. Bowel sounds are normal. She exhibits no distension. Neurological: She is alert and oriented to person, place, and time. Skin: Skin is warm. She is not diaphoretic. Psychiatric: She has a normal mood and affect. Her behavior is normal. Nursing note and vitals reviewed. DATA Results for CRISTINA DONNELLY ( ) as of 08/30/2014 19:31 Ref. Range 08/27/2014 17:42 08/28/2014 01:29 08/28/2014 06:20 08/29/2014 04:34 WBC Latest Range: 3.8-11.0 K/uL 7.5 12.0 (H) 11.1 (H) RBC Latest Range: 3.70-5.10 M/uL 4.08 4.06 3.77 HGB Latest Range: 11.3-15.5 g/dL 12.8 12.8 12.0 HCT Latest Range: 34.0-46.0 % 36.1 36.0 33.9 (L) MCV Latest Range: 80.0-100.0 fl 88.5 88.8 89.9 MCH Latest Range: 27.0-34.0 pg 31.3 31.5 31.8 MCHC Latest Range: 32.0-35.5 g/dL 35.4 35.4 35.4 RDW SD Latest Range: 37-53 fl 40.7 40.3 40.7 Platelets Latest Range: 150-400 K/uL 326 299 293 MPV No range found 7.8 8.5 8.7 DIFF TYPE No range found AUTOMATED AUTOMATED NEUTROPHILS No range found 59.9 69.8 LYMPHOCYTES No range found 29.6 20.4 MONOCYTES No range found 7.9 8.5 EOSINOPHILS No range found 1.7 1.1 BASOPHILS No range found 0.9 0.2 NEUTROPHILS ABS Latest Range: 1.9-7.4 K/uL 4.5 8.4 (H) LYMPHOCYTES ABS Latest Range: 1.0-3.9 K/uL 2.2 2.4 MONOCYTES ABS Latest Range: 0-0.8 K/uL 0.6 1.0 (H) EOSINOPHILS ABS Latest Range: 0-0.5 K/uL 0.1 0.1 BASOPHILS ABS Latest Range: 0-0.1 K/uL 0.1 0.0 SODIUM Latest Range: 135-143 mmol/L 137 141 138 POTASSIUM Latest Range: 3.5-4.9 mmol/L 3.1 (L) 2.5 (LL) 3.3 (L) 3.4 (L) CHLORIDE Latest Range: 99-109 mmol/L 104 107 107 CO2 Latest Range: 23-32 mmol/L 22 (L) 25 24 ANION GAP AGAP Latest Range: 5-20 mmol/L 14 12 10 GLUCOSE Latest Range: 65-99 mg/dL 131 (H) 98 108 (H) BUN Latest Range: 8-25 mg/dL 19 14 17 CREATININE Latest Range: 0.50-1.00 mg/dL 1.05 (H) 0.78 0.73 BUN/CREAT No range found 19 18 23 CALCIUM Latest Range: 8.5-10.2 mg/dL 8.4 (L) 8.7 8.7 TOTAL PROTEIN Latest Range: 6.3-8.2 g/dL 6.6 6.7 ALBUMIN Latest Range: 3.3-4.8 g/dL 3.6 3.6 GLOBULIN Latest Range: 1.3-4.9 g/dL 3.0 3.1 TBIL Latest Range: 0.1-1.5 mg/dL 0.6 0.4 ALKALINE PHOSPHATASE Latest Range: 35-115 U/L 89 88 AST Latest Range: 10-45 U/L 26 31 ALT Latest Range: 10-65 U/L 33 31 EGFR Latest Range: >60 mL/min/1.73m2 47 (L) >60 >60 PHOSPHORUS Latest Range: 2.3-4.8 mg/dL 2.1 (L) MAGNESIUM Latest Range: 1.7-2.4 mg/dL 1.9 1.8 A/G Latest Range: 1.0-2.4 1.2 1.2 APTT Latest Range: 23-32 seconds 24 INR No range found 1.0 NM lung ventilation perfusion [[id number]] Resulted: 08/28/14917 Order Status: Completed Updated: 08/28/14922 Narrative: HISTORY: Difficulty breathing. COMPARISON: Chest x-ray 08/27/14. TECHNIQUE: 31 mCi Xenon-133 was inhaled. Scintigraphic imaging of both lungs was performed including wash in, equilibrium, and washout phases in the standard projections. Subsequently, 6.1 mCi of technetium 99m labeled MAA (Pulmolite kit) was injected intravenously and imaging of the lungs was repeated in the standard projections. FINDINGS: Ventilation images show perhaps minimal ventilatory retention diffusely. Perfusion images show only minimal inhomogeneity in the left lung base, correlating with th e subtle infiltrative change noted on chest x-ray. Right lung appears clear. Impression: 1. Subtle inhomogeneity in the left lung base, with perhaps small defect, corresponding w ith the infiltrative change noted on chest x-ray. 2. Question subtle ventilatory retention diffusely. 3. Low probability for pulmonary embolus. urinary tract abdomen pelvis without contrast [[id number]] Resulted: 08/28/14807 Order Status: Completed Updated: 08/28/14812 Narrative: HISTORY: Left flank pain. TECHNIQUE: 5-mm axial CT images were acquired through the abdomen and pelvis for evaluation of the uri nary tract. No oral or IV contrast was used. COMPARISON: None. FINDINGS: Strandy changes lateral right lung base and medial left lung base probably due to atelectas is. There may be an element of adjacent mild pleural reaction in the lateral right and media l left lung bases. No effusions. Left renal pelvis is oriented anteriorly, a minor rotational anomaly. Extreme beam hardenin g from the patient's bilateral hip prostheses. There is a calcification overlying the distal left ureter sequence 3 image 71. I am uncertain if this are presents phlebolith or distal u reteral stone. Probable phlebolith in the anterior right pelvis near the right UVJ. No hydro nephrosis or hydroureter. No renal stones. Advanced sigmoid diverticulosis. Uterus is not se en. Clips in the gallbladder fossa. Bone windows show advanced L5-S1, moderate L4-L5, mild L3-L4 degenerative facet changes, wi th moderate vertebral endplate spurring throughout the visualized spine. Subtle levoconvex s coliosis lower thoracic and upper lumbar spine. Impression: 1. No renal stones or hydronephrosis or hydroureter. 2. Calcific densities in the pelvis bilaterally. On the left this overlies the left ureter ovesicular junction. I cannot exclude distal left ureteral stone. 3. Skaggs catheter. 4. Bilateral hip prostheses. 5. Cholecystectomy, with presumed hysterectomy. brain wo contrast and MRA head [[id number]] Resulted: 08/28/14 0158 Order Status: Completed Updated: 08/28/14200 Narrative: MR brain MR brain without contrast, MR angiogram brain INDICATION: Altered mental status. Seizure. Technique : multisequence, multiplanar MR imaging of the brain without IV contrast. 3-D saida e-of-flight MR angiography with MIP reconstruction COMPARISON: Head CT 08/27/2014 FINDINGS: Diffusely prominent CSF spaces in keeping with the patient's age. There is moderately extensive nonspecific white matter change within the cerebral hemispher es bilaterally. This appears associated with generalized white matter volume loss and promin ent lateral ventricles bilaterally. There is quite extensive involvement of the immediate pe riventricular white matter as well as multiple juxtacortical lesions. No evidence of acute infarct. No space-occupying lesion, hemorrhage, extracerebral fluid co llection. No convincing evidence of active hydrocephalus. Skull base is unremarkable. Expected flow voids are identified. MR angiogram demonstrates no evidence of major vessel stenosis, occlusion, aneurysm, dissec tion, thrombi or vascular malformation. Vertebral arteries are codominant. Basilar artery and both posterior cerebral arteries are patent and unremarkable. There is a patent right posterior communicating artery, left is hyp oplastic or atretic. Both internal carotid arteries, anterior and middle cerebral arteries are patent and unrema rkable. A definite anterior communicating artery is not seen. Impression: Prominent nonspecific white matter change. No acute intracranial process identified. No significant abnormality identified on intracranial MR angiography. Electronically signed by Ryland Singer MD on Aug 28 2014 1:58AM Referring Provider Line: [phone] ID: [id number] US Lower Extremity - Venous Bilateral [[id number]] Resulted: 08/28/14 012 Order Status: Completed Updated: 08/28/14 012 Narrative: EXAM: BILATERAL LOWER EXTREMITY VENOUS ULTRASOUND EXAM DATE: 08/28/2014 01:41 AM. CLINICAL HISTORY: Elevated d-dimer. COMPARISON: None. TECHNIQUE: Real-time sonographic vascular imaging was performed by the residential collections through the lower extremities utilizing both color-flow and Doppler spectral analysis. Multiple repr esentative static images were saved for review. FINDINGS: Right: Common Femoral Vein (CFV): Normal. Profunda Femoral Vein (PFV): Normal. Superficial Femoral Vein (SFV) Prox: Normal. Superficial Femoral Vein (SFV) Mid: Normal. Superficial Femoral Vein (SFV) Dist: Normal. Popliteal Vein: Normal. Posterior Tibial Veins: Normal. Peroneal Veins: Normal. Left: Common Femoral Vein (CFV): Normal. Profunda Femoral Vein (PFV): Normal. Superficial Femoral Vein (SFV) Prox: Normal. Superficial Femoral Vein (SFV) Mid: Normal. Superficial Femoral Vein (SFV) Dist: Normal. Popliteal Vein: Normal. Posterior Tibial Veins: Normal. Peroneal Veins: Normal. Other: None. Impression: Negative for deep venous thrombosis in bilateral lower extremities. [facility] Electronically signed by García Ferrera MD on Aug 28 2014 1:21AM Referring Provider Line: [phone] ID: [id number] CT Head Non-Con [[id number]] Resulted: 08/27/141832 Order Status: Completed Updated: 08/27/141838 Narrative: HISTORY:trauma, demographics unknown. TECHNIQUE: Axial noncontrast head CT. Prior examination: None. FINDINGS: Anesthesiologists' Assistant notable for midline endotracheal tube and enteric tube-not fully evaluated here The falx is midline. There is no evidence of abnormal extra axial fluid collection or hemor rhage. The sulcation symmetric, the nation-white demarcation is preserved. There is an element of ventriculomegaly with slight asymmetry, the left lateral ventricle is more prominent, th e posterior horn measures about 2 cm. The imaging standard for hydrocephalus-although there is no midline shift or positive mass effect. Periventricular white matter disease. There is a miniscule calcification about the right basal ganglia on image 16 of the reconstructed john ges. No hemorrhage. Probable artifact, fairly symmetric and in typical basilar/peripheral distri butions. No aggressive or lytic calvarial lesion. No evidence of active fluid, mastoid or sinus dise ase. Middle ears and mastoids are clear. There is no calvarial fracture. Superficial tissues are without cephalhematoma. There is dense beam hardening artifact due to dentition especia lly to the left of midline. Impression: 1. Mild hydrocephalus, with slight asymmetric ectasia of the left lateral ventricle-without positive mass effect 2. White matter disease, without convincing evidence of acute ischemia or hemorrhage No evidence of posttraumatic changes. Chest AP Portable [[id number]] Resulted: 08/27/141711 Order Status: Completed Updated: 08/27/141716 Narrative: HISTORY: trauma. Demographics unknown TECHNIQUE: 1. 1 view radiographic examination of the chest, computer enhanced technique Prior study for review : None FINDINGS: Endotracheal tube is superimposed over the midline airway, about 5 cm above the franklin No mass effect or enlargement of the mediastinum. Aorta cartridge seems normal. Lungs are somewhat hypoinflated with some asymmetric reticular infiltrate or atelectasis in the left lung, atelectasis on this supine examination may be confounding. There is no large effusion. Film is somewhat lordotic, but no proven pneumothorax. No dense pulmonary infiltrate. Surveillance examination of the skeleton reveals degenerative changes. No proven displaced lesion. There are clips in the gallbladder fossa Impression: 1. Hyperinflated supine trauma film, with some asymmetric probable atelectasis in the left lung No evidence of mass effect upon or enlargement of the mediastinum 2. Endotracheal tube in radiographically appropriate position. Procedure Component Value Units Date/Time Culture, Stool (with Shiga Toxin) [[id number]] Collected: 08/27/14 183 Order Status: Completed Lab Status: Final result Updated: 08/30/14 1257 Specimen Information: Stool / Stool Specimen Description STOOL CULTURE NEGATIVE FOR SHIGA TOXIN TYPE 1 AND 2. CULTURE Result: NEGATIVE FOR SALMONELLA, SHIGELLA AND CAMPYLOBACTER CULTURE Result: IF A YERSINIA OR VIBRIO IS SUSPECTED, PLEASE CONTACT THE MICRO LAB FOR SPECIAL TESTING . CULTURE Result: Testing performed at [facility], [address] [place] [address] C diff toxin by PCR (TAT 3 hr in house) [[id number]] Collected: 08/27/14 183 Order Status: Completed Lab Status: Final result Updated: 08/27/14 1939 Specimen Information: Stool / Stool Toxigenic C Difficile NEGATIVE Comment: Testing performed at [facility];[address] [place] [id number] 027 NAP1 BI 027 NAP1 BI PRESUMPTIVE NEGATIVE Comment: Detection of 027 NAP1 BI strains of C. difficile is presumptive and for epidemiologica l purposes and not intended to guide or monitor treatment for C. difficile infections. Testing performed at [facility];[address] [place] [id number] Impression 1. Sinus rhythm. 2. A 2-dimensional transthoracic echocardiogram with m-mode, spectral and color flow Dopple r was perfomed. 3. This was a technically adequate study. 4. Left ventricular systolic function is hyperdynamic with an estimated EF of >70%. 5. The left ventricle cavity size is normal. 6. Left ventricular wall thickness is normal. 7. The right ventricle is normal in size. 8. The left atrial size is normal. 9. The right atrial size is normal. 10. The aortic valve is trileaflet and appears structurally normal. 11. Trace amount of aortic regurgitation. 12. There is no evidence of aortic stenosis. 13. Mild mitral regurgitation is present. 14. There is mild calcification of the anterior mitral valve leaflet. 15. There is mild calcification of the posterior mitral valve leaflet. 16. The tricuspid valve appears structurally normal. 17. Moderate tricuspid regurgitation present. 18. There is mild pulmonary hypertension. 19. The right ventricular systolic pressure (pulmonary artery systolic pressure), as measur ed by Doppler, is 47.61mmHg. 20. A wave normal. 21. There is no pericardial effusion. 22. The IVC is normal size (1.5-2.5cm) and collapses >50% with sniff, consistent with centr al venous pressures of 5-10mmHg. Echo cardiac adult complete Status: Edited Result - FINAL Study Result Disposition: Home Condition: Stable Code Status: Full Code Discharge Instructions CBC w/auto diff (reflex to manual) Standing Status: Future Standing Exp. Date: 09/15/14 Order Comments: Please forward to her PCP Dr Yair Gleason Magnesium Standing Status: Future Standing Exp. Date: 09/15/14 Order Comments: Please forward to her PCP Dr Yair Gleason Basic metabolic panel Standing Status: Future Standing Exp. Date: 09/15/14 Order Comments: Please forward to her PCP Dr Yair Gleason Diet Diabetic Other Restrictions (Specify): Order Comments: As tolerated with full seizure precautions as discussed with her by me as aparna stauffer as neurology and other providers as well. No driving, swimming, climbing ladders, being around open flames, or any activity which cou ld be dangerous to herself or others if she were to have another seizure. Call MD for: Order Comments: Any distress Call MD for: Extreme Fatigue Call MD for: Persistant Dizziness or Light-Headedness Call MD for: Hives Call MD for: Difficulty Breathing, Headache or Visual Disturbances Call MD for: Redness, Tenderness, or Signs of Infection (Pain, Swelling, Redness, Odor or Green/Yellow Discharge Around Incision Site) Call MD for: Severe Uncontrolled Pain Call MD for: Persistant Nausea and Vomiting Call MD for: Temperature > 100.4F (38C) Nursing communication Order Comments: Currently med recc is pending--patient should resume her home medications s he was on prior to admission with the exception of keppra as this should be held, also addin g atarax and topomax Patient should see her neurologist arvin to reume care and have her medications managed--rec c she be seen this week in follow up with neurology and her pcp Seizure precautions Follow up: Yair Gleason MD Schedule an appointment as soon as possible for a visit arvin please be seen this week in [facility] up on rash and this admission and seizures please make an appt with your neurologist in [facility] to be seen this week in follow up of your seizures and medication management as medication was changed resume care with all providers you were seeing before this admission Medication List START taking these medications hydrOXYzine 10 MG tablet QTY: 30 tablet Refills: 0 Commonly known as: ATARAX Take 1 tablet by mouth every 6 (six) hours as needed for Itching. topiramate 25 MG tablet QTY: 60 tablet Refills: 0 Commonly known as: TOPAMAX Take 1 tablet by mouth every 12 (twelve) hours. CHANGE how you take these medications levothyroxine 88 MCG tablet Refills: 0 Commonly known as: SYNTHROID What changed: Another medication with the same name was removed. Continue taking this medi cation, and follow the directions you see here. CONTINUE taking these medications fluocinonide 0.05 % external solution Refills: 0 Commonly known as: LIDEX gemfibrozil 600 MG tablet Refills: 0 Commonly known as: LOPID hydrochlorothiazide 25 MG tablet Refills: 0 Commonly known as: HYDRODIURIL lovastatin 20 MG tablet Refills: 0 Commonly known as: MEVACOR mupirocin 2 % ointment Refills: 0 Commonly known as: BACTROBAN omeprazole 20 MG capsule Refills: 0 Commonly known as: PRILOSEC potassium chloride 10 MEQ CR tablet Refills: 0 Commonly known as: K-TAB spironolactone 25 MG tablet Refills: 0 Commonly known as: ALDACTONE STOP taking these medications THYROID PO Where to Get Your Medications 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 You may get the following medications from any pharmacy - hydrOXYzine 10 MG tablet - topiramate 25 MG tablet Discharge took 40 minutes, to include final examination, discussion of admission, and prepa ration of prescriptions, instructions for on-going care, follow-up and documentation of disc harge summary. GARCÍA FERRARA MD 08/30/2014 documented in this encounter Medications at Time of Discharge [...] documented as of this encounter Progress Notes Conversion Transaction, Provider Unknown - 08/30/2014 12:29 PM PSTFormatting of this note m ight be different from the original. Case Management by Derrick Hernandez RN at 08/30/14 8841 Author: Derrick Hernandez RN Service: (none) Author Type: Registered Nurse Filed: 08/30/14 5222 Date of Service: 08/30/141228 Status: Signed Pricing Associate: Derrick Hernandez RN (Registered Nurse) 08/30/149 Discharge Planning Evaluation Admitting Diagnosis Seizure w/collapse, change in meds Readmission No Living Arrangements Spouse/significant other Support Systems Spouse/significant other Type of Residence Private residence House type House-1 story Steps to enter 1 Bathrooms on 1st Floor 1-Full Independent with ADL's Yes Independent with Mobility Yes Home Care Services No Caregiver after Discharge No Mental Status Oriented Prior functional status independent Anticipated Discharge Plan Post Acute Care Needs None at this time Resources Financial concerns No Transportation issues No Patient/Family concerns No Prescription Plan Yes Previous home health equipment No Vascular access device No Ostomy/Drains/Appliances No Met with: Pt and and discussed discharge planning, Pt is a 73 y.o., female who live s with her in their private residence. They both deny financial, transportation, triplett pport or home safety needs at this time. I encouraged them to contact their RN to enter a CM consult as needs arise. Patient's PCP is: YAIR GLEASON Patient's insurance: Managed commercial Coverage concerns: no Medication coverage/concerns: no [facility] Bed[facility] Delivery: no Community resources utilized / needed: no Assistance in transportation: no Identification of any specific education / training: TBD by clinical course Barriers to Discharge / Alternative housing needed: no Anticipated DCP: home with providing transportation back to [place], [place]. DERRICK HERNANDEZ Jeremi Vail, Provider Unknown - 08/30/2014 9:32 AM PST Progress Notes by Elsie Figueroa at 08/30/14931 Author: Elsie Figueroa Service: (none) Author Type: [employer] Receiver Filed: 08/30/14931 Date of Service: 08/30/14931 Status: Signed Pricing Associate: Elsie Figueroa (Sales Support Representative) I have met with Mrs. Donnelly in regards to a PCP, she stated that her PCP was Yair Gleason. Updated in chart. Ne Plata PT - 08/30/2014 9:30 AM PSTFormatting of this note might be different from th vera original. Therapy Progress Note by Ne Pozo PT at 08/30/14929 Author: Ne Pozo PT Service: (none) Author Type: Physical Therapist Filed: 08/30/14 1127 Date of Service: 08/30/14929 Status: Signed Pricing Associate: Ne L Wells, PT (Physical Therapist) 08/30/14 0930 PT Last Visit PT Received On 08/30/14 Reason for Treatment Deconditioning Requires PT Follow Up Yes Follow up PT Only? No Assistance Required 1 person Manager Support Needed No Precautions Other Precautions fall risk Cognition Overall Cognitive Status WFL Orientation Level Oriented;Other (Comment) (a little forgetful today-repeats [id number]) Bed Mobility Supine to Sit Supervision;Patient appears safe Sit to Supine Supervision;Patient appears safe Transfers Sit to/from Stand Supervision;Minimal assist (steadying/contact guard);Patient appears safe Mobility Weight Bearing Status WBAT LLE;WBAT RLE Ambulation Assistance Supervision;Verbal instruction;Patient appears safe Maximal Ambulation Distance (feet) 75ftx6 Total Ambulation Distance (feet) 450ft Distance limited by? Patient's ability;Therapist/staff discretion Pattern Alternating;Decreased vasile;Right swing foot passes stance foot;Left swing foot p asses stance foot;Narrow base;Forward flexed Assistive Device Walker 4 wheeled Balance Balance Yes High Level Balance Tandem Stance Other (comment) (counter) Single Leg Stance Left;Right High Level Comments semi tandem Supine Supine-Exercise Type Ankle pumps;SLR;ABD/ADD;Heel slides;Bridging without bolster;Other (Co mment) (rock hips, rock shoulders/baby) Supine-Exercise Comments every commercial- move Seated Seated-Exercise Type Ankle pumps;Seated marching;Long arc quads;ADduction;ABduction Seated-Exercise Comments every commercial Standing Standing-Exercise Type Hip flexion;Hip extension;ABduction Standing-Exercise Comments at sink counter Modalities Modalities Other therapy Other Therapy given written HEP -including above Activity Tolerance Activity Tolerance Patient tolerated treatment without report of fatigue Nurse Made Aware RN aware Restraints Initially in Place No (call barker in reach) Plan Treatment/Interventions Continue with skilled PT services;Assist d/c plannning;Balance gold elvia;Bed mobility training;Family training;Gait training;Transfer training;Therapeutic exerc ise;Review precautions;Provide HEP;Review HEP Progress Progressing toward goals PT Frequency 5-7x/wk Recommendation Recommendations Outpatient PT Equipment Recommended Walker 4 wheeled Requires PT Follow Up Yes onversion Transa ction, Provider Unknown - 08/30/2014 5:32 AM PST Nurse Progress Note by Sarahy Jiang RN at 08/30/14531 Author: Sarahy Jiang RN Service: (none) Author Type: Registered Nurse Filed: 08/30/14533 Date of Service: 08/30/14531 Status: Signed Pricing Associate: Sarahy Jiang RN (Registered Nurse) Pt has been sleeping all night, no complaints of itching. Will continue to monitor. onver laurie Transaction, Provider Unknown - 08/29/2014 6:39 PM PST Nurse Progress Note by Mayra Acosta RN at 08/29/141838 Author: Mayra Acosta RN Service: (none) Author Type: Registered Nurse Filed: 08/29/141840 Date of Service: 08/29/141838 Status: Signed Pricing Associate: Mayra Acosta RN (Registered Nurse) Pt's rash has spread to include L ear and back of neck. Pt complains that it is "itchy and irritating", but denies throat discomfort of difficulty breathing. Dr. Ramirez called and upda joesph re: rash and says to continue to antihistamine regimen. Will continue to monitor. John Acosta RN k Ramirez MD - 08/29/2014 12:29 PM PST Progress Notes by Tk Ramirez MD at 08/29/14 1229 Author: Tk Ramirez MD Service: (none) Author Type: Physician Filed: 08/29/14 1240 Date of Service: 08/29/141228 Status: Signed Pricing Associate: Tk Ramirez MD (Physician) [facility] Service: Hospitalist Progress Note Hospital Day: LOS: 2 days Post-Op Day: * No surgery found * SUBJECTIVE Patient Summary: admission H and P Dr. Bello:"HISTORY OF PRESENT ILLNESSdiabetes arsenio litus type , hertension, testing acid reflux, hypothyroidism. The patient had 2 episodes of seizures, November 2000, treated in [facility]. Three weeks later had the second episode kamilah coleman not on antiepileptic medications. The patient has left flank pain for a week and is curr ently on ciprofloxacin for urinary tract infection. She still has 3 more days of antibiotics left. The patient left [place] last night and was halting at [place]. She had epigast ninfa pressure localized without radiation to the left arm, jaw, intrascapular area. It felt s imilar to her acid reflux pain. She had nausea without vomiting. She took Tums and felt bett er, and then slept. This morning they drove to [place] and in the afternoon they were at the [facility]. There she had told her that she had the same epigastric pressure with nausea and did not feel well. Mild shortness of breath. This lasted for a few minutes. Subsequently she felt better. They were heading towards [place] walking out of the casino holding her husb ands hand when she had acute loss of consciousness. She was slumping to the ground so he cau ght her and lowered her to the floor. He thought it was her seizure and laid her on her side . Her eyes were rolling up. She was foaming in the mouth. She had loss of consciousness and urinary incontinence. She did not have stool incontinence, lip biting, or tongue biting. EMS was called. Apparently the pulse was feeble per spouse. She was not breathing well. Therefo re she was intubated in the field for airway protection. She did not have any jerking moveme nts. No report of fall or injury today. The patient was brought to the emergency room for fu rther evaluation. Laboratory workup showed normal cardiac enzymes and mild acute renal failure with a GFR of 47, creatinine 1.05, hypokalemia of 3.1, diabetes with well controlled hyperglycemia, elevat ed D-dimer at 0.77, lactate level of 4.4, clostridium difficile negative. BNP 9.9. Alcohol l evel normal. EKG did not show any acute injury or ischemia, shows normal sinus rhythm. Vital signs have remained stable. The hospitalist service consulted to admit for seizure, third e pisode." Events Overnight: Patient indicates a new development of a rash to her right cheek area, indicating pruritus, denies any other rashes , otherwise patient indicates feeling well . No new seizure episodes reported , patient denies any headache , no vertigo , no dyspnea , , No acute events overnight, no new episodes of seizures, patient indicating feeling fatigued , mild headache, some left flank discomfort, though otherwise feeling well. Telemetry reviewed no acute arrhythmias. No chest pain, no dyspnea. Scheduled Medications aspirin 324 mg Oral Once aspirin 81 mg Oral Daily with breakfast atorvastatin 20 mg Oral Nightly heparin (porcine) 5,000 Units Subcutaneous Q8H insulin aspart 0-3 Units Subcutaneous Nightly insulin aspart 0-6 Units Subcutaneous TID AC potassium chloride 40 mEq Oral Once thiamine 100 mg Oral Daily topiramate 25 mg Oral Q12H LIZZY Continuous Infusions dextrose sodium chloride (IV) 50 mL/hr (08/28/14 1325) PRN Medications acetaminophen, acetaminophen, bisacodyl, dextrose, dextrose, dextrose, diphenhydrAMINE, glu cagon, glucagon, LORazepam, ondansetron, ondansetron, polyethylene glycol OBJECTIVE Vital Signs: BP 114/57 | Pulse 78 | Temp(Src) 98.2 F (36.8 C) (Oral) | Resp 16 | Wt 70 kg (154 lb 5. 2 oz) | SpO2 95% | ? No Temp: [97.7 F (36.5 C)-98.7 F (37.1 C)] 98.2 F (36.8 C) (08/29 1113) BP: (94-116)/(52-57) 114/57 mmHg (08/29 0738) Heart Rate: [72-86] 78 (08/29 1113) Resp: [16] 16 (08/29 1113) SpO2: [94 %-97 %] 95 % (08/29 111) Physical Exam Constitutional: She is oriented to person, place, and time. She appears well-developed and well-nourished. No distress. HENT: Head: Mouth/Throat: Oropharynx is clear and moist. No oropharyngeal exudate. Patient has a approximate 7 x 5 cm indurated slightly erythematous rash to her right cheek area. has been marked with black felt. Eyes: No scleral icterus. Pulmonary/Chest: Effort normal and breath sounds normal. Abdominal: Soft. Bowel sounds are normal. She exhibits no distension. Neurological: She is alert and oriented to person, place, and time. Skin: Skin is warm. She is not diaphoretic. Psychiatric: She has a normal mood and affect. Her behavior is normal. Nursing note and vitals reviewed. DATA CBC: Lab Results Component Value Date WBC 11.1* 08/29/2014 RBC 3.77 08/29/2014 HGB 12.0 08/29/2014 HCT 33.9* 08/29/2014 MCV 89.9 08/29/2014 MCH 31.8 08/29/2014 MCHC 35.4 08/29/2014 RDW 40.7 08/29/2014 PLT 293 08/29/2014 MPV 8.7 08/29/2014 DIFFTYPE AUTOMATED 08/28/2014 WBC: Lab Results Component Value Date WBC 11.1* 08/29/2014 NEUTROABS 8.4* 08/28/2014 LYMPHSABS 2.4 08/28/2014 LYMPHOPCT 20.4 08/28/2014 MONOPCT 8.5 08/28/2014 EOSABS 0.1 08/28/2014 EOSPCT 1.1 08/28/2014 BASOSABS 0.0 08/28/2014 BASOPCT 0.2 08/28/2014 Last 3 Troponin: Lab Results Component Value Date TROPONINI 0.023 08/28/2014 TROPONINI 0.051 08/28/2014 TSH: Lab Results Component Value Date TSH 0.87 08/27/2014 PROBLEM LIST Principal Problem: Seizure Active Problems: Epigastric abdominal pain Lactate blood increase Hypokalemia ARF (acute renal failure) Left flank pain Pyelonephritis, acute Diabetes mellitus, type 2 Hypertension Hypothyroid GERD (gastroesophageal reflux disease) D-dimer, elevated Rash, drug; kera Ct Head Non-con 08/27/2014 1. Mild hydrocephalus, with slight asymmetric ectasia of the left lateral vent ricle-without positive mass effect 2. White matter disease, without convincing evidence of acute ischemia or hemorrhage No evidence of posttraumatic changes. Nm Lung Ventilation Perfusion 08/28/2014 1. Subtle inhomogeneity in the left lung base, with perhaps small defect, eleanor esponding with the infiltrative change noted on chest x-ray. 2. Question subtle ventilatory retention diffusely. 3. Low probability for pulmonary embolus. Xr Chest Ap Portable 08/27/2014 1. Hyperinflated supine trauma film, with some asymmetric probable atelectasis in the left lung No evidence of mass effect upon or enlargement of the mediastinum 2. End otracheal tube in radiographically appropriate position. Us Lower Extremity - Venous Bilateral 08/28/2014 Negative for deep venous thrombosis in bilateral lower extremities. RADIA El ectronically signed by García Ferrera MD on Aug 28 2014 1:21AM Referring Provider Line : [phone] ID: [id number] Ct Urinary Tract Abdomen Pelvis Without Contrast 08/28/2014 1. No renal stones or hydronephrosis or hydroureter. 2. Calcific densities in the pelvis bilaterally. On the left this overlies the left ureterovesicular junction. I can not exclude distal left ureteral stone. 3. Skaggs catheter. 4. Bilateral hip prostheses. 5. Cholecystectomy, with presumed hysterectomy. Electronically signed by Ever Coombs MD o n 08/28/2014 8:08 AM Mri Brain Wo Contrast And Mra Head 08/28/2014 Prominent nonspecific white matter change. No acute intracranial process iden tified. No significant abnormality identified on intracranial MR angiography. Electronica lly signed by Ryland Singer MD on Aug 28 2014 1:58AM Referring Provider Line: [phone] TE ID: [id number] ASSESSMENT & PLAN #1. tonic-clonic seizure - Prior history of seizures - MRI findings - Possibly exacerbated by hypokalemia - Patient started on IV and transitioned to po Keppra, today complaining of a new rash to the right cheek area, a concern for possible keppra drug rash, review of medications, mahad ent did receive 1 dose of IV ceftriaxone in ED. At this point, we will need to discontinue Keppra, and change to Topamax 25 mg twice a day, this was discussed with neurology. - A she will need to be monitored and additional 24 hours - Patient instructed to cannot drive, pt needs to report to [place] at DM #2. Elevated d-dimer - VQ scan low probability - Lower extremity ultrasound negative for DVT - Low probability of pulmonary emboli #3. Urinary tract infection/history - Repeat UA negative for pyuria or bacteria #4. Acute kidney injury - Resolved with IV fluids - CT renal negative for urolithiasis - DC Skaggs catheter #5. Type II diabetes - Blood sugar stable #6. Hypokalemia - Patient indicates of being on potassium supplements - Presented with a potassium level of 2.5 - Replaced #7. Hypothyroidism - TSH stable will change status to inpatient Disposition: Code Status: Full Code Tk Ramirez MD 08/29/2014 inci, Amparo Frey D - 08/28/2014 1:03 PM PST Progress Notes by Tk Ramirez MD at 08/28/14 1303 Author: Tk Ramirez MD Service: (none) Author Type: Physician Filed: 08/28/14 1312 Date of Service: 08/28/14 1303 Status: Addendum Pricing Associate: Tk Ramirez MD (Physician) Related Notes: Original Note by Tk Ramirez MD (Physician) filed at 08/28/14 1311 [facility] Service: Hospitalist Progress Note Hospital Day: LOS: 1 day Post-Op Day: * No surgery found * SUBJECTIVE Patient Summary: admission H and P Dr. Bello:"HISTORY OF PRESENT ILLNESSdiabetes arsenio litus type , hypertension, acid reflux, hypothyroidism. The patient had 2 episodes of seizur es, November 2000, treated in [facility]. Three weeks later had the second episode however no t on antiepileptic medications. The patient has left flank pain for a week and is currently on ciprofloxacin for urinary tract infection. She still has 3 more days of antibiotics left. The patient left [place] last night and was halting at [place]. She had epigastric pr essure localized without radiation to the left arm, jaw, intrascapular area. It felt similar to her acid reflux pain. She had nausea without vomiting. She took Tums and felt better, an d then slept. This morning they drove to [place] and in the [place] were [place] the [place] There she had told her that she had the same epigastric pressure with nausea and di d not feel well. Mild shortness of breath. This lasted for a few minutes. Subsequently she f elt better. They were heading towards [place] walking out of the casino holding her husbands h and when she had acute loss of consciousness. She was slumping to the ground so he caught he r and lowered her to the floor. He thought it was her seizure and laid her on her side. Her eyes were rolling up. She was foaming in the mouth. She had loss of consciousness and urinar y incontinence. She did not have stool incontinence, lip biting, or tongue biting. EMS was mely baig. Apparently the pulse was feeble per spouse. She was not breathing well. Therefore she was intubated in the field for airway protection. She did not have any jerking movements. N o report of fall or injury today. The patient was brought to the emergency room for further evaluation. Laboratory workup showed normal cardiac enzymes and mild acute renal failure with a GFR of 47, creatinine 1.05, hypokalemia of 3.1, diabetes with well controlled hyperglycemia, elevat ed D-dimer at 0.77, lactate level of 4.4, clostridium difficile negative. BNP 9.9. Alcohol l evel normal. EKG did not show any acute injury or ischemia, shows normal sinus rhythm. Vital signs have remained stable. The hospitalist service consulted to admit for seizure, third e pisode." Events Overnight: No acute events overnight, no new episodes of seizures, patient indicating feeling fatigued , mild headache, some left flank discomfort, though otherwise feeling well. Telemetry reviewed no acute arrhythmias. Patient indicating a throat feeling raw. No chest pain, no dyspnea. Scheduled Medications aspirin 324 mg Oral Once aspirin 81 mg Oral Daily with breakfast atorvastatin 20 mg Oral Nightly heparin (porcine) 5,000 Units Subcutaneous Q8H insulin aspart 0-3 Units Subcutaneous Nightly insulin aspart 0-6 Units Subcutaneous TID AC levETIRAcetam 500 mg Oral BID pantoprazole 40 mg Intravenous QAM AC potassium chloride 40 mEq Oral Once thiamine 100 mg Oral Daily Continuous Infusions dextrose sodium chloride (IV) 75 mL/hr at 08/28/14 0119 PRN Medications acetaminophen, acetaminophen, bisacodyl, dextrose, dextrose, dextrose, glucagon, glucagon, LORazepam, ondansetron, ondansetron, polyethylene glycol OBJECTIVE Vital Signs: BP 100/55 | Pulse 70 | Temp(Src) 98.3 F (36.8 C) (Oral) | Resp 16 | Wt 70 kg (154 lb 5. 2 oz) | SpO2 96% | ? No Temp: [95.7 F (35.4 C)-98.4 F (36.9 C)] 98.3 F (36.8 C) (08/28 1213) BP: (100-163)/(55-85) 100/55 mmHg (08/28 1213) Heart Rate: [70-92] 70 (08/28 1213) Resp: [14-18] 16 (08/28 1213) SpO2: [95 %-100 %] 96 % (08/28 1213) Weight: [70 kg (154 lb 5.2 oz)] 70 kg (154 lb 5.2 oz) (08/27 1647) FiO2 : [40 %] 40 % (08/27 1712) Physical Exam Constitutional: She is oriented to person, place, and time. She appears well-developed and well-nourished. No distress. HENT: Mouth/Throat: Oropharynx is clear and moist. No oropharyngeal exudate. Eyes: No scleral icterus. Pulmonary/Chest: Effort normal and breath sounds normal. Abdominal: Soft. Bowel sounds are normal. She exhibits no distension. Neurological: She is alert and oriented to person, place, and time. Skin: Skin is warm. She is not diaphoretic. Psychiatric: She has a normal mood and affect. Her behavior is normal. Nursing note and vitals reviewed. DATA CBC: Lab Results Component Value Date WBC 12.0* 08/28/2014 RBC 4.06 08/28/2014 HGB 12.8 08/28/2014 HCT 36.0 08/28/2014 MCV 88.8 08/28/2014 MCH 31.5 08/28/2014 MCHC 35.4 08/28/2014 RDW 40.3 08/28/2014 PLT 299 08/28/2014 MPV 8.5 08/28/2014 DIFFTYPE AUTOMATED 08/28/2014 WBC: Lab Results Component Value Date WBC 12.0* 08/28/2014 NEUTROABS 8.4* 08/28/2014 LYMPHSABS 2.4 08/28/2014 LYMPHOPCT 20.4 08/28/2014 MONOPCT 8.5 08/28/2014 EOSABS 0.1 08/28/2014 EOSPCT 1.1 08/28/2014 BASOSABS 0.0 08/28/2014 BASOPCT 0.2 08/28/2014 Last 3 Troponin: Lab Results Component Value Date TROPONINI 0.023 08/28/2014 TROPONINI 0.051 08/28/2014 TSH: Lab Results Component Value Date TSH 0.87 08/27/2014 PROBLEM LIST Principal Problem: Seizure Active Problems: Epigastric abdominal pain Lactate blood increase Hypokalemia ARF (acute renal failure) Left flank pain Pyelonephritis, acute Diabetes mellitus, type 2 Hypertension Hypothyroid GERD (gastroesophageal reflux disease) D-dimer, elevated Ct Head Non-con 08/27/2014 1. Mild hydrocephalus, with slight asymmetric ectasia of the left lateral vent ricle-without positive mass effect 2. White matter disease, without convincing evidence of acute ischemia or hemorrhage No evidence of posttraumatic changes. Nm Lung Ventilation Perfusion 08/28/2014 1. Subtle inhomogeneity in the left lung base, with perhaps small defect, eleanor esponding with the infiltrative change noted on chest x-ray. 2. Question subtle ventilatory retention diffusely. 3. Low probability for pulmonary embolus. Xr Chest Ap Portable 08/27/2014 1. Hyperinflated supine trauma film, with some asymmetric probable atelectasis in the left lung No evidence of mass effect upon or enlargement of the mediastinum 2. End otracheal tube in radiographically appropriate position. Us Lower Extremity - Venous Bilateral 08/28/2014 Negative for deep venous thrombosis in bilateral lower extremities. RADIA El ectronically signed by García Ferrera MD on Aug 28 2014 1:21AM Referring Provider Line : [phone] ID: [id number] Ct Urinary Tract Abdomen Pelvis Without Contrast 08/28/2014 1. No renal stones or hydronephrosis or hydroureter. 2. Calcific densities in the pelvis bilaterally. On the left this overlies the left ureterovesicular junction. I can not exclude distal left ureteral stone. 3. Skaggs catheter. 4. Bilateral hip prostheses. 5. Cholecystectomy, with presumed hysterectomy. Electronically signed by Ever Coombs MD o n 08/28/2014 8:08 AM Mri Brain Wo Contrast And Mra Head 08/28/2014 Prominent nonspecific white matter change. No acute intracranial process iden tified. No significant abnormality identified on intracranial MR angiography. Electronica lly signed by Ryland Singer MD on Aug 28 2014 1:58AM Referring Provider Line: [phone] TE ID: [id number] ASSESSMENT & PLAN #1. A tonic-clonic seizure - Prior history of seizures - MRI findings - Possibly exacerbated by hypokalemia - Neurology consulted; cardiology recommending rule out cardiac etiology, being that prior events are unclear if truly a seizure or not? We will continue to monitor telemetry, chroni c enzymes are within normal limits, echocardiogram - Change IV to by mouth Keppra, thiamine - Patient instructed to cannot drive, needs to report to [place] at [facility] #2. Elevated d-dimer - VQ scan low probability - Lower extremity ultrasound negative for DVT - Low probability of pulmonary emboli #3. Urinary tract infection/history - Repeat UA negative for pyuria or bacteria will discontinue antibiotics #4. Acute kidney injury - Resolved with IV fluids - CT renal negative for urolithiasis - DC Skaggs catheter #5. Type II diabetes - Blood sugar stable #6. Hypokalemia - Patient indicates of being on potassium supplements - Presented with a potassium level of 2.5 - Replaced #7. Hypothyroidism - TSH stable Disposition; will continue to monitor on telemetry, replace electrolytes, monitor for any f urther seizure activity, echocardiogram, if stable tentative discharge tomorrow Disposition: Code Status: Full Code Tk Ramirez MD 08/28/2014 Ne Lee PT - 08/28/2014 10:15 AM PST Therapy Progress Note by Ne Pozo PT at 08/28/14 1015 Author: Ne Pozo PT Service: (none) Author Type: Physical Therapist Filed: 08/28/14 1121 Date of Service: 08/28/14 1015 Status: Signed Pricing Associate: Ne Pozo PT (Physical Therapist) 08/28/14 1015 PT Last Visit PT Received On 08/28/14 PT Eval/Reassessment Date 08/28/14 Requires PT Follow Up Yes Precautions Other Precautions fall risk Plan Treatment/Interventions Continue with skilled PT services;Bed mobility training;Balance tra ining;Assist d/c plannning;Family training;Gait training;Transfer training;Therapeutic exerc ise;Stair training;Set goals;Provide HEP Progress Slow progress, decreased activity tolerance PT Frequency 5-7x/wk Care Duration (# of days) 5 # of days Home Environment Type of Home Home one story Home Exterior Layout 1-3 steps Home Interior Layout Lives on main level with bedroom/bathroom;Rail on R ascending Bathroom Shower/Tub Shower unit with threshold Bathroom Toilet Raised Bathroom Equipment Grab bars at toilet Additional Comments spoke with - they may want to look at a grab bar in bathroom -by shower and a non-skid mat/decal in shower Recommendation Recommendations Outpatient PT;Outpatient OT Equipment Recommended Walker 4 wheeled Recommendation Comments outpatient PT for balance deficits and possibly OT for energy conse rvation and safety during I-ADL's/ADL's Prior Function Level of [place] Independent with ADLs;Independent with IADLs;Driving in community;Co mmunity distance Lives With Spouse Employment Retired for age Leisure Hobbies-yes (Comment) Comments shops daily- if only to get out and get her "exercise" RUE Assessment RUE Assessment WFL (all 4 limbs- WFL ROM and 4/5 or less strength) Activity Tolerance Endurance Fair Sitting Balance Moves/returns trunkal midpoint 1-2 inches in multiple planes LUE Assessment LUE Assessment WFL (slight loss at end ranges) RLE Assessment RLE Assessment WFL LLE Assessment LLE Assessment WFL Cognition Overall Cognitive Status WFL Orientation Level Oriented Comments a little anxious-repeats self but appears cognitively at age level Sensation Additional Comments she reported no chagnes in sensory that she has noticed Vision-Basic Assessment Current Vision Wears glasses Assessment of Patient Status Assessment of Patient Status Decreased endurance;Visual impairment;Decreased insight into d eficits;Other (comment) (reported her legs felt rubbery at end of gait) Prognosis Should progress with skilled therapy intervention Restraints Initially in Place No (call barker in hand and reviewed use) 11/02/14 1015 PT Last Visit PT Received On 08/28/14 PT Eval/Reassessment Date 08/28/14 Precautions Other Precautions fall risk Other Comments Comments Patient is 73 year female lives with supportive - normally drives- is total ly independent with self care- 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; during eval her Tinetti AMANDA-07/24=32 with 68% impairmen and so she has significant balance issues- and woul d probably benefit from outpatient PT and possible OT for energy conservation Cognition Overall Cognitive Status WFL Orientation Level Oriented Comments a little anxious-repeats self but appears cognitively at age level Bed Mobility Rolling Minimal assist;Verbal instruction;Modified independent Supine to Sit Mod assist (BLEs OOB or trunk to upright);Verbal instruction Sit to Supine Min assist (1 LE into bed);Verbal instruction Transfers Sit to/from Stand Minimal assist (steadying/contact guard);Verbal instruction Mobility Weight Bearing Status WBAT LLE;WBAT RLE Ambulation Assistance Minimal assist;Visual instruction;Supervision Maximal Ambulation Distance (feet) 75ftx4 Total Ambulation Distance (feet) 300ft Distance limited by? Patient's ability;Therapist/staff discretion Pattern Alternating;Decreased vasile;Right swing foot passes stance foot;Left swing foot p asses stance foot;Right dec toe clearance;Left dec toe clearance;Forward flexed;Wide base Assistive Device Walker 4 wheeled Stairs Assistance KALIA (one step to get in to home- per spouse-no rail at this time) Balance Balance Yes Dynamic Standing Balance Dynamic Standing-Comments/Duration Tinetti AMANDA-07/24=32 with 68% impairment Supine Supine-Exercise Type Ankle pumps;Quad sets;Glut sets;SLR;ABD/ADD;Heel slides Supine-Exercise Comments every commercial -do some Modalities Modalities Other therapy Other Therapy instructions to patient and - how to gradually increase mobility and e ndurance Activity Tolerance Activity Tolerance Patient limited by fatigue Medical Staff Made Aware spoke with MD per eval information Nurse Made Aware spoke w/RN after eval Restraints Initially in Place No (call barker in hand and reviewed use) Plan Treatment/Interventions Continue with skilled PT services;Bed mobility training;Balance tra ining;Assist d/c plannning;Family training;Gait training;Transfer training;Therapeutic exerc ise;Stair training;Set goals;Provide HEP Progress Slow progress, decreased activity tolerance PT Frequency 5-7x/wk Care Duration (# of days) 5 # of days Recommendation Recommendations Outpatient PT;Outpatient OT Equipment Recommended Walker 4 wheeled Requires PT Follow Up Yes Recommendation Comments outpatient PT for balance deficits and possibly OT for energy conse rvation and safety during I-ADL's/ADL's Suraj Townsend RN - 08/28/2014 5:56 AM PSTFormatting of this note might be different from the origin al. Nurse Progress Note by Olga Ibarra RN at 08/28/14555 Author: Olga Ibarra RN Service: (none) Author Type: Registered Nurse Filed: 08/28/14602 Date of Service: 08/28/14555 Status: Signed Pricing Associate: Olga Ibarra RN (Registered Nurse) Patient arrived by stretcher from the ED, accompanied by her . Patient is awake, michael rt and oriented, and was transferred to bed from stretcher. Skaggs in place and draining abel r yellow urine. Patient sleeping on and off during assessment. She denies pain. Uneventful n ight, will continue monitoring. onversion Tra nsaction, Provider Unknown - 08/28/2014 1:48 AM PDTFormatting of this note might be differe nt from the original. Progress Notes by Opal Gore RPH at 08/28/14147 Author: Opal Gore RPH Service: (none) Author Type: Pharmacist Filed: 08/28/14147 Date of Service: 08/28/14147 Status: Signed Pricing Associate: Opal Gore RPH (Pharmacist) Clinical Pharmacy Note: Renal Monitoring Cristina Christensen Dudley 73 y.o. female Height: not charted Weight: 70 kg Serum Creatinine: 1.05 mg/dL Pharmacy dosing for renal function per Dr. Bello. Currently there are no medications needing to be adjusted. Pharmacy will continue to monito r for changes in medication orders and in renal function and adjust accordingly per P & T co mmittee. Opal Gore PharmD 08/28/2014 1:48 AM docume aracelyed in this encounter Plan of Treatment +--------+---------+ + + + | Date | Type | Specialty | Care Team | Description | +--------+---------+ + + + | 11/11/ | Office | Neurology | Kathie, | | | 2019 | Visit | | [address] [place], | | | | | | [place] [address] | | | | | | [phone] | | | | | | | | +--------+---------+ + + + | 05/08/ | Office | Neurology | Garth Vinson MD | | | 2019 | Visit | | [address] | | | | | | [place] | | | | | | [address] | | | | | | | | +--------+---------+ + + + documented as of this encounter Procedures + +--------+ + + + | Procedure Name | Priori | Date/Time | Associated Diagnosis | Comments | | | ty | | | | + +--------+ + + + | POC GLUCOSE | Routin | 08/30/2014 | | Results for this | | | e | 11:26 AM | | procedure are in the | | | | PST | | results section. | + +--------+ + + + | POC GLUCOSE | Routin | 08/30/2014 | | Results for this | | | e | 5:44 AM | | procedure are in the | | | | PST | | results section. | + +--------+ + + + | POC GLUCOSE | Routin | 08/29/2014 | | Results for this | | | e | 9:53 PM | | procedure are in the | | | | PST | | results section. | + +--------+ + + + | POC GLUCOSE | Routin | 08/29/2014 | | Results for this | | | e | 3:40 PM | | procedure are in the | | | | PST | | results section. | + +--------+ + + + | POC GLUCOSE | Routin | 08/29/2014 | | Results for this | | | e | 11:13 AM | | procedure are in the | | | | PST | | results section. | + +--------+ + + + | POC GLUCOSE | Routin | 08/29/2014 | | Results for this | | | e | 5:37 AM | | procedure are in the | | | | PST | | results section. | + +--------+ + + + | CBC NO DIFFERENTIAL | Routin | 08/29/2014 | | Results for this | | | e | 4:34 AM | | procedure are in the | | | | PST | | results section. | + +--------+ + + + | PHOSPHORUS | Routin | 08/29/2014 | | Results for this | | | e | 4:34 AM | | procedure are in the | | | | PST | | results section. | + +--------+ + + + | MAGNESIUM | Routin | 08/29/2014 | | Results for this | | | e | 4:34 AM | | procedure are in the | | | | PST | | results section. | + +--------+ + + + | BASIC METABOLIC | Routin | 08/29/2014 | | Results for this | | PANEL | e | 4:34 AM | | procedure are in the | | | | PST | | results section. | + +--------+ + + + | POC GLUCOSE | Routin | 08/28/2014 | | Results for this | | | e | 9:23 PM | | procedure are in the | | | | PST | | results section. | + +--------+ + + + | POC GLUCOSE | Routin | 08/28/2014 | | Results for this | | | e | 3:31 PM | | procedure are in the | | | | PST | | results section. | + +--------+ + + + | POC GLUCOSE | Routin | 08/28/2014 | | Results for this | | | e | 12:12 PM | | procedure are in the | | | | PST | | results section. | + +--------+ + + + | ECHO COMPLETE | Routin | 08/28/2014 | | Results for this | | | e | 12:06 PM | | procedure are in the | | | | PST | | results section. | + +--------+ + + + | NM LUNG PERFUSION | Routin | 08/28/2014 | | Results for this | | VENTILATION | e | 8:50 AM | | procedure are in the | | | | PST | | results section. | + +--------+ + + + | CT RENAL STONE WO | Routin | 08/28/2014 | | Results for this | | CONTRAST | e | 7:38 AM | | procedure are in the | | | | PST | | results section. | + +--------+ + + + | TROPONIN I | Routin | 08/28/2014 | | Results for this | | | e | 7:20 AM | | procedure are in the | | | | PST | | results section. | + +--------+ + + + | CK-MB | Routin | 08/28/2014 | | Results for this | | | e | 7:20 AM | | procedure are in the | | | | PST | | results section. | + +--------+ + + + | LACTIC ACID | Routin | 08/28/2014 | | Results for this | | | e | 7:20 AM | | procedure are in the | | | | PST | | results section. | + +--------+ + + + | CK TOTAL | Routin | 08/28/2014 | | Results for this | | | e | 7:20 AM | | procedure are in the | | | | PST | | results section. | + +--------+ + + + | POTASSIUM | Routin | 08/28/2014 | | Results for this | | | e | 6:20 AM | | procedure are in the | | | | PST | | results section. | + +--------+ + + + | POC GLUCOSE | Routin | 08/28/2014 | | Results for this | | | e | 5:12 AM | | procedure are in the | | | | PST | | results section. | + +--------+ + + + | VAS LOWER EXTREMITY | Routin | 08/28/2014 | | Results for this | | VENOUS BILATERAL | e | 1:40 AM | | procedure are in the | | | | PDT | | results section. | + +--------+ + + + | POC GLUCOSE | Routin | 08/28/2014 | | Results for this | | | e | 1:34 AM | | procedure are in the | | | | PDT | | results section. | + +--------+ + + + | EXTERNAL LAB: CBC | Routin | 08/28/2014 | | Results for this | | | e | 1:29 AM | | procedure are in the | | | | PDT | | results section. | + +--------+ + + + | TROPONIN I | Routin | 08/28/2014 | | Results for this | | | e | 1:29 AM | | procedure are in the | | | | PDT | | results section. | + +--------+ + + + | CK-MB | Routin | 08/28/2014 | | Results for this | | | e | 1:29 AM | | procedure are in the | | | | PDT | | results section. | + +--------+ + + + | CK TOTAL | Routin | 08/28/2014 | | Results for this | | | e | 1:29 AM | | procedure are in the | | | | PDT | | results section. | + +--------+ + + + | COMPREHENSIVE | Routin | 08/28/2014 | | Results for this | | METABOLIC PANEL | e | 1:29 AM | | procedure are in the | | | | PDT | | results section. | + +--------+ + + + | MRI BRAIN WO | Routin | 08/28/2014 | | Results for this | | CONTRAST ANGIOGRAM | e | 12:45 AM | | procedure are in the | | HEAD WO CONTRAST | | PDT | | results section. | + +--------+ + + + | HISTORICAL | STAT | 08/27/2014 | | Results for this | | MICROBIOLOGY RESULT | | 6:30 PM | | procedure are in the | | | | PDT | | results section. | + +--------+ + + + | CULTURE, STOOL | STAT | 08/27/2014 | | Results for this | | | | 6:30 PM | | procedure are in the | | | | PDT | | results section. | + +--------+ + + + | CT HEAD WO CONTRAST | Routin | 08/27/2014 | | Results for this | | | e | 6:15 PM | | procedure are in the | | | | PDT | | results section. | + +--------+ + + + | HISTORICAL LAB PANEL | Routin | 08/27/2014 | | Results for this | | RESULT | e | 5:42 PM | | procedure are in the | | | | PDT | | results section. | + +--------+ + + + | D-DIMER | Routin | 08/27/2014 | | Results for this | | | e | 5:42 PM | | procedure are in the | | | | PDT | | results section. | + +--------+ + + + | C-REACTIVE PROTEIN | Routin | 08/27/2014 | | Results for this | | | e | 5:42 PM | | procedure are in the | | | | PDT | | results section. | + +--------+ + + + | TSH | Routin | 08/27/2014 | | Results for this | | | e | 5:42 PM | | procedure are in the | | | | PDT | | results section. | + +--------+ + + + | B TYPE NATRIURETIC | Routin | 08/27/2014 | | Results for this | | PEPTIDE | e | 5:42 PM | | procedure are in the | | | | PDT | | results section. | + +--------+ + + + | MAGNESIUM | Routin | 08/27/2014 | | Results for this | | | e | 5:42 PM | | procedure are in the | | | | PDT | | results section. | + +--------+ + + + | HEMOGLOBIN A1C | Routin | 08/27/2014 | | Results for this | | | e | 5:42 PM | | procedure are in the | | | | PDT | | results section. | + +--------+ + + + | ALCOHOL | Routin | 08/27/2014 | | Results for this | | | e | 5:42 PM | | procedure are in the | | | | PDT | | results section. | + +--------+ + + + | POC CG 4, ISTAT | Routin | 08/27/2014 | | Results for this | | ARTERIAL | e | 5:12 PM | | procedure are in the | | | | PDT | | results section. | + +--------+ + + + | XR CHEST 1 VIEW | Routin | 08/27/2014 | | Results for this | | | e | 5:06 PM | | procedure are in the | | | | PDT | | results section. | + +--------+ + + + documented in this encounter Results POC Glucose (08/30/2014 11:26 AM PST) + + + + + + | Component | Value | Ref Range | Performed | Pathologist | | | | | At | Signature | + + + + + + | Glucose, | 128 (H)Comment: Testing | 65 - 99 mg/dL | EXTERNAL | | | Fingerstick | performed at [facility];[address] | | LAB | | | | [address];[place] | | | | | | [address] | | | | + + + + + + + + | Specimen | + + | | + + + +---------+ + + | Performing | Address | City/State/Zipcode | Phone Number | | Organization | | | | + +---------+ + + | EXTERNAL LAB | | | | + +---------+ + + POC Glucose (08/30/2014 5:44 AM PST) + + + + + + | Component | Value | Ref Range | Performed | Pathologist | | | | | At | Signature | + + + + + + | Glucose, | 94Comment: Testing | 65 - 99 mg/dL | EXTERNAL | | | Fingerstick | performed at [facility];[address] | | LAB | | | | [address];[place] | | | | | | [address] | | | | + + + + + + + + | Specimen | + + | | + + + +---------+ + + | Performing | Address | City/State/Zipcode | Phone Number | | Organization | | | | + +---------+ + + | EXTERNAL LAB | | | | + +---------+ + + POC Glucose (08/29/2014 9:53 PM PST) + + + + + + | Component | Value | Ref Range | Performed | Pathologist | | | | | At | Signature | + + + + + + | Glucose, | 104 (H)Comment: Testing | 65 - 99 mg/dL | EXTERNAL | | | Fingerstick | performed at [facility];[address] | | LAB | | | | [address];[place], [place] | | | | | | [address] | | | | + + + + + + + + | Specimen | + + | | + + + +---------+ + + | Performing | Address | City/State/Zipcode | Phone Number | | Organization | | | | + +---------+ + + | EXTERNAL LAB | | | | + +---------+ + + POC Glucose (08/29/2014 3:40 PM PST) + + + + + + | Component | Value | Ref Range | Performed | Pathologist | | | | | At | Signature | + + + + + + | Glucose, | 96Comment: Testing | 65 - 99 mg/dL | EXTERNAL | | | Fingerstick | performed at [facility];[address] | | LAB | | | | [address];[place], [place] | | | | | | [address] | | | | + + + + + + + + | Specimen | + + | | + + + +---------+ + + | Performing | Address | City/State/Zipcode | Phone Number | | Organization | | | | + +---------+ + + | EXTERNAL LAB | | | | + +---------+ + + POC Glucose (08/29/2014 11:13 AM PST) + + + + + + | Component | Value | Ref Range | Performed | Pathologist | | | | | At | Signature | + + + + + + | Glucose, | 122 (H)Comment: Testing | 65 - 99 mg/dL | EXTERNAL | | | Fingerstick | performed at [facility];[address] | | LAB | | | | [address];[place], [place] | | | | | | [address] | | | | + + + + + + + + | Specimen | + + | | + + + +---------+ + + | Performing | Address | City/State/Zipcode | Phone Number | | Organization | | | | + +---------+ + + | EXTERNAL LAB | | | | + +---------+ + + POC Glucose (08/29/2014 5:37 AM PST) + + + + + + | Component | Value | Ref Range | Performed | Pathologist | | | | | At | Signature | + + + + + + | Glucose, | 110 (H)Comment: Testing | 65 - 99 mg/dL | EXTERNAL | | | Fingerstick | performed at [facility];[address] | | LAB | | | | [address];[place] | | | | | | [address] | | | | + + + + + + + + | Specimen | + + | | + + + +---------+ + + | Performing | Address | City/State/Zipcode | Phone Number | | Organization | | | | + +---------+ + + | EXTERNAL LAB | | | | + +---------+ + + CBC no Differential (08/29/2014 4:34 AM PST) + + + + + + | Component | Value | Ref Range | Performed | Pathologist | | | | | At | Signature | + + + + + + | WBC | 11.1 (H)Comment: Testing | 3.8 - 11.0 K/uL | EXTERNAL | | | | performed at [facility], [address] | | LAB | | | | [address], | | | | | | [place] [address] | | | | + + + + + + | RED CELL | 3.77Comment: Testing | 3.70 - 5.10 | EXTERNAL | | | COUNT | performed at [facility], [address] | M/uL | LAB | | | | [address], | | | | | | [place] [address] | | | | + + + + + + | Hgb | 12.0Comment: Testing | 11.3 - 15.5 | EXTERNAL | | | | performed at [facility], [address] | g/dL | LAB | | | | [address], | | | | | | [place] [address] | | | | + + + + + + | Hematocrit, | 33.9 (L)Comment: Testing | 34.0 - 46.0 % | EXTERNAL | | | POC | performed at [facility], [address] | | LAB | | | | [address], | | | | | | [place] [address] | | | | + + + + + + | MCV | 89.9Comment: Testing | 80.0 - 100.0 fl | EXTERNAL | | | | performed at [facility], [address] | | LAB | | | | [address], | | | | | | [place] [address] | | | | + + + + + + | MCH | 31.8Comment: Testing | 27.0 - 34.0 pg | EXTERNAL | | | | performed at [facility], [address] | | LAB | | | | [address], | | | | | | [place] [address] | | | | + + + + + + | MCHC | 35.4Comment: Testing | 32.0 - 35.5 | EXTERNAL | | | | performed at [facility], [address] | g/dL | LAB | | | | [address], | | | | | | [place] [address] | | | | + + + + + + | RDW-CV | 40.7Comment: Testing | 37 - 53 fl | EXTERNAL | | | | performed at [facility], [address] | | LAB | | | | [address], | | | | | | [place] [address] | | | | + + + + + + | Platelet | 293Comment: Testing | 150 - 400 K/uL | EXTERNAL | | | Count | performed at [facility], [address] | | LAB | | | Plasma | [address], | | | | | | [place] [address] | | | | + + + + + + | MPV | 8.7Comment: Testing | fl | EXTERNAL | | | | performed at [facility], [address] | | LAB | | | | [address], | | | | | | [place] [address] | | | | + + + + + + + + | Specimen | + + | | + + + +---------+ + + | Performing | Address | City/State/Zipcode | Phone Number | | Organization | | | | + +---------+ + + | EXTERNAL LAB | | | | + +---------+ + + Phosphorus (08/29/2014 4:34 AM PST) + + + + + + | Component | Value | Ref Range | Performed | Pathologist | | | | | At | Signature | + + + + + + | PHOSPHORUS | 2.1 (L)Comment: Testing | 2.3 - 4.8 mg/dL | EXTERNAL | | | | performed at [facility], [address] | | LAB | | | | [address], | | | | | | [place] [address] | | | | + + + + + + + + | Specimen | + + | Blood specimen | | (specimen) | + + + +---------+ + + | Performing | Address | City/State/Zipcode | Phone Number | | Organization | | | | + +---------+ + + | EXTERNAL LAB | | | | + +---------+ + + Magnesium (08/29/2014 4:34 AM PST) + + + + + + | Component | Value | Ref Range | Performed | Pathologist | | | | | At | Signature | + + + + + + | Magnesium | 1.8Comment: Testing | 1.7 - 2.4 mg/dL | EXTERNAL | | | | performed at [facility], [address] | | LAB | | | | [address], | | | | | | [place] [address] | | | | + + + + + + + + | Specimen | + + | Blood specimen | | (specimen) | + + + +---------+ + + | Performing | Address | City/State/Zipcode | Phone Number | | Organization | | | | + +---------+ + + | EXTERNAL LAB | | | | + +---------+ + + Basic Metabolic Panel (08/29/2014 4:34 AM PST) + + + + + + | Component | Value | Ref Range | Performed | Pathologist | | | | | At | Signature | + + + + + + | Na | 138Comment: Testing | 135 - 143 | EXTERNAL | | | | performed at [facility], [address] | mmol/L | LAB | | | | [address], | | | | | | [place] [address] | | | | + + + + + + | K | 3.4 (L)Comment: Testing | 3.5 - 4.9 | EXTERNAL | | | | performed at [facility], [address] | mmol/L | LAB | | | | [address], | | | | | | [place] [address] | | | | + + + + + + | Cl | 107Comment: Testing | 99 - 109 mmol/L | EXTERNAL | | | | performed at [facility], [address] | | LAB | | | | [address], | | | | | | [place] [address] | | | | + + + + + + | CO2 | 24Comment: Testing | 23 - 32 mmol/L | EXTERNAL | | | | performed at [facility], [address] | | LAB | | | | [address], | | | | | | [place] [address] | | | | + + + + + + | Anion Gap | 10Comment: Testing | 5 - 20 mmol/L | EXTERNAL | | | | performed at [facility], [address] | | LAB | | | | [address], | | | | | | [place] [address] | | | | + + + + + + | Glucose, | 108 (H)Comment: Testing | 65 - 99 mg/dL | EXTERNAL | | | Fasting | performed at [facility], [address] | | LAB | | | | [address], | | | | | | [place] [id number] | | | | + + + + + + | BUN | 17Comment: Testing | 8 - 25 mg/dL | EXTERNAL | | | | performed at [facility], [address] | | LAB | | | | [address], | | | | | | [place] [id number] | | | | + + + + + + | Creatinine | 0.73Comment: Testing | 0.50 - 1.00 | EXTERNAL | | | | performed at [facility], [address] | mg/dL | LAB | | | | [address], | | | | | | [place] [id number] | | | | + + + + + + | BUN/Creatin | 23Comment: Testing | | EXTERNAL | | | ine Ratio | performed at [facility], [address] | | LAB | | | | [address], | | | | | | [place] [address] | | | | + + + + + + | Calcium | 8.7Comment: Testing | 8.5 - 10.2 | EXTERNAL | | | | performed at [facility], [address] | mg/dL | LAB | | | | [address], | | | | | | [place] [id number] | | | | + + + + + + | Estimated | >60Comment: GFR <60: | mL/min/1.73m2 | EXTERNAL | | | GFR | CHRONIC KIDNEY DISEASE, | | LAB | | | | IF FOUND OVER A 3 MONTH | | | | | | PERIOD.GFR <15: KIDNEY | | | | | | FAILURE.FOR | | | | | | AMERICANS, MULTIPLY THE | | | | | | CALCULATED GFR BY | | | | | | 1.210.Testing performed | | | | | | at [facility], [address] | | | | | | [address], | | | | | | [place] [id number] | | | | + + + + + + + + | Specimen | + + | Blood specimen | | (specimen) | + + + +---------+ + + | Performing | Address | City/State/Zipcode | Phone Number | | Organization | | | | + +---------+ + + | EXTERNAL LAB | | | | + +---------+ + + POC Glucose (08/28/2014 9:23 PM PST) + + + + + + | Component | Value | Ref Range | Performed | Pathologist | | | | | At | Signature | + + + + + + | Glucose, | 120 (H)Comment: Testing | 65 - 99 mg/dL | EXTERNAL | | | Fingerstick | performed at [facility];[address] | | LAB | | | | [address];[place], [place] | | | | | | [address] | | | | + + + + + + + + | Specimen | + + | | + + + +---------+ + + | Performing | Address | City/State/Zipcode | Phone Number | | Organization | | | | + +---------+ + + | EXTERNAL LAB | | | | + +---------+ + + POC Glucose (08/28/2014 3:31 PM PST) + + + + + + | Component | Value | Ref Range | Performed | Pathologist | | | | | At | Signature | + + + + + + | Glucose, | 142 (H)Comment: Testing | 65 - 99 mg/dL | EXTERNAL | | | Fingerstick | performed at [facility];[address] | | LAB | | | | [address];[place] | | | | | | [address] | | | | + + + + + + + + | Specimen | + + | | + + + +---------+ + + | Performing | Address | City/State/Zipcode | Phone Number | | Organization | | | | + +---------+ + + | EXTERNAL LAB | | | | + +---------+ + + POC Glucose (08/28/2014 12:12 PM PST) + + + + + + | Component | Value | Ref Range | Performed | Pathologist | | | | | At | Signature | + + + + + + | Glucose, | 158 (H)Comment: Testing | 65 - 99 mg/dL | EXTERNAL | | | Fingerstick | performed at [facility];[address] | | LAB | | | | [address];[place] | | | | | | [address] | | | | + + + + + + + + | Specimen | + + | | + + + +---------+ + + | Performing | Address | City/State/Zipcode | Phone Number | | Organization | | | | + +---------+ + + | EXTERNAL LAB | | | | + +---------+ + + ECHO Complete (08/28/2014 12:06 PM PST) + + | Specimen | + + | | + + + + + | Impressions | Performed At | + + + | 1. Sinus rhythm. 2. A 2-dimensional transthoracic echocardiogram | | | with m-mode, spectral and color flow Doppler was perfomed. 3. This | | | was a technically adequate study. 4. Left ventricular systolic | | | function is hyperdynamic with an estimated EF of >70%. 5. The left | | | ventricle cavity size is normal. 6. Left ventricular wall thickness | | | is normal. 7. The right ventricle is normal in size. 8. The left | | | atrial size is normal. 9. The right atrial size is normal. 10. The | | | aortic valve is trileaflet and appears structurally normal. 11. Trace | | | amount of aortic regurgitation. 12. There is no evidence of aortic | | | stenosis. 13. Mild mitral regurgitation is present. 14. There is | | | mild calcification of the anterior mitral valve leaflet. 15. There is | | | mild calcification of the posterior mitral valve leaflet. 16. The | | | tricuspid valve appears structurally normal. 17. Moderate tricuspid | | | regurgitation present. 18. There is mild pulmonary hypertension. 19. | | | The right ventricular systolic pressure (pulmonary artery systolic | | | pressure), as measured by Doppler, is 47.61mmHg. 20. A wave normal. | | | 21. There is no pericardial effusion. 22. The IVC is normal size | | | (1.5-2.5cm) and collapses >50% with sniff, consistent with central | | | venous pressures of 5-10mmHg. | | + + + + + + | Narrative | Performed At | + + + | Patient Name: CRISTINA DONNELLY Date of : 1940 | | | Performing Physician: Elena Tafoya MD | | | | | | ------REPORT ADDENDED------ INDICATIONS ACUTE CA/WMA | | | ACUTE RESP FAILURE, SNCOPE, COLLAPSE, SEIZRE, PYELONEPHRITIS, GERD, | | | ARF, DM 2, HYPERTENSION, HYPOTHYROID, LACTATE BLOOD INCREASE, RENAL | | | INSUFFICIENCY, LFT FLANK PAIN, D DIMER ELEVATED CONCLUSIONS | | | 1. Sinus rhythm. 2. A 2-dimensional transthoracic | | | echocardiogram with m-mode, spectral and color flow Doppler was | | | perfomed. 3. This was a technically adequate study. 4. Left | | | ventricular systolic function is hyperdynamic with an estimated EF of | | | >70%. 5. The left ventricle cavity size is normal. 6. Left | | | ventricular wall thickness is normal. 7. The right ventricle is | | | normal in size. 8. The left atrial size is normal. 9. The right | | | atrial size is normal. 10. The aortic valve is trileaflet and appears | | | structurally normal. 11. Trace amount of aortic regurgitation. 12. | | | There is no evidence of aortic stenosis. 13. Mild mitral | | | regurgitation is present. 14. There is mild calcification of the | | | anterior mitral valve leaflet. 15. There is mild calcification of the | | | posterior mitral valve leaflet. 16. The tricuspid valve appears | | | structurally normal. 17. Moderate tricuspid regurgitation present. | | | 18. There is mild pulmonary hypertension. 19. The right ventricular | | | systolic pressure (pulmonary artery systolic pressure), as measured by | | | Doppler, is 47.61mmHg. 20. A wave normal. 21. There is no | | | pericardial effusion. 22. The IVC is normal size (1.5-2.5cm) and | | | collapses >50% with sniff, consistent with central venous pressures of | | | 5-10mmHg. FINDINGS -------- ECG rhythm: Sinus rhythm. Study: A | | | 2-dimensional transthoracic echocardiogram with m-mode, spectral and | | | color flow Doppler was perfomed. Study: This was a technically | | | adequate study. Left Ventricle: Left ventricular systolic function is | | | hyperdynamic with an estimated EF of >70%. Left Ventricle: The left | | | ventricle cavity size is normal. Left Ventricle: Left ventricular | | | wall thickness is normal. Right Ventricle: The right ventricle is | | | normal in size. Left Atrium: The left atrial size is normal. Right | | | Atrium: The right atrial size is normal. Aortic Valve: The aortic | | | valve is trileaflet and appears structurally normal. Aortic Valve: | | | Trace amount of aortic regurgitation. Aortic Valve: There is no | | | evidence of aortic stenosis. Mitral Valve: Mild mitral regurgitation | | | is present. Mitral Valve: There is mild calcification of the anterior | | | mitral valve leaflet. Mitral Valve: There is mild calcification of | | | the posterior mitral valve leaflet. Tricuspid Valve: The tricuspid | | | valve appears structurally normal. Tricuspid Valve: Moderate | | | tricuspid regurgitation present. Tricuspid Valve: There is mild | | | pulmonary hypertension. Tricuspid Valve: The right ventricular | | | systolic pressure (pulmonary artery systolic pressure), as measured by | | | Doppler, is 47.61mmHg. Pulmonic Valve: A wave normal. Pericardium: | | | There is no pericardial effusion. IVC/Hepatic Veins: The IVC is | | | normal size (1.5-2.5cm) and collapses >50% with sniff, consistent with | | | central venous pressures of 5-10mmHg. MEASUREMENTS | | | LA Major: 4.80 cm EDV(Teich): 66.19 ml IVSd: 0.69 cm | | | LVIDd: 3.90 cm LVPWd: 0.79 cm LVOT Diam: 1.79 cm %FS: | | | 47.56 % EF(Teich): 79.56 % ESV(Teich): 13.53 ml IVSs: 1.11 | | | cm LVIDs: 2.04 cm LVPWs: 1.13 cm SV(Teich): 52.66 ml RA | | | Major: 4.62 cm RVIDd: 2.93 cm LVEF MOD A2C: 88.02 % SV MOD | | | A2C: 29.76 ml LVEF MOD A4C: 76.38 % SV MOD A4C: 26.47 ml | | | EF Biplane: 82.84 % LVEDV MOD BP: 34.52 ml LVESV MOD BP: | | | 5.92 ml LVEDV MOD A2C: 33.81 ml LVLd A2C: 6.16 cm LVEDV MOD | | | A4C: 34.66 ml LVLd A4C: 6.29 cm LVESV MOD A2C: 4.04 ml | | | LVLs A2C: 5.23 cm LVESV MOD A4C: 8.18 ml LVLs A4C: 4.85 cm | | | CO Biplane: 2.09 l/min HR: 73.10 BPM R-R: 820.70 ms | | | LAESV(A-L): 46.74 ml LAESV Index (A-L): 27.65 ml/m2 LAAs A2C: | | | 17.16 cm2 LAESV A-L A2C: 44.31 ml LALs A2C: 5.64 cm LAAs | | | A4C: 17.69 cm2 LAESV A-L A4C: 48.18 ml LALs A4C: 5.51 cm | | | Ao Diam: 2.78 cm AV Cusp: 1.64 cm LA Diam: 3.23 cm LA/Ao: | | | 1.16 %FS: 48.45 % EDV(Teich): 91.08 ml EF(Teich): 79.99 | | | % ESV(Teich): 18.21 ml IVSd: 0.59 cm IVSs: 0.92 cm | | | LVIDd: 4.47 cm LVIDs: 2.30 cm LVPWd: 0.69 cm LVPWs: | | | 1.29 cm SV(Teich): 72.86 ml D-E Excursion: 1.47 cm E-F Cross: | | | 0.07 m/s EPSS: 0.45 cm IVC diameter: 1.64 cm IVC | | | collapse: 0.56 cm IVC % collapse: 63.87 % HR: 67.62 BPM AV | | | maxP.56 mmHg AV meanP.44 mmHg AV Vmax: 1.46 m/s | | | AV Vmean: 0.96 m/s AV VTI: 30.60 cm RADHA Vmax: 2.97 cm2 RADHA | | | (VTI): 2.74 cm2 LVCI Dopp: 3.43 l/minm2 LVCO Dopp: 5.81 | | | l/min HR: 69.06 BPM LVOT maxP.75 mmHg LVOT meanPG: | | | 5.02 mmHg LVSI Dopp: 49.78 ml/m2 LVSV Dopp: 84.14 ml LVOT | | | Vmax: 1.71 m/s LVOT Vmean: 1.01 m/s LVOT VTI: 33.16 cm | | | MCO: 384.47 ms MV A Ian: 1.65 m/s MV DecT: 235.34 ms MV E | | | Ian: 1.33 m/s MV E/A Ratio: 0.80 MV PHT: 68.24 ms MVA By | | | PHT: 3.22 cm2 MV A Dur: 85.02 ms MV maxP.21 mmHg MV | | | meanP.23 mmHg MV Vmax: 1.59 m/s MV Vmean: 0.96 m/s MV | | | VTI: 44.97 cm MVA (VTI): 1.87 cm2 Septal e': 0.07 m/s | | | Septal E/e': 16.76 Lateral e': 0.07 m/s Lateral E/e': 18.36 | | | P Vein A: 0.30 m/s P Vein A Dur: 66.54 ms P Vein D: 0.54 | | | m/s P Vein S/D Ratio: 1.59 P Vein S: 0.86 m/s HR: 69.06 | | | BPM PV maxP.32 mmHg PV meanP.65 mmHg PV Vmax: 0.76 | | | m/s PV Vmean: 0.63 m/s PV VTI: 18.52 cm RAP: 10 mmHg | | | RVSP: 47.61 mmHg TR maxP.61 mmHg TR Vmax: 3.06 m/s TV | | | A Ian: 0.26 m/s TV Dec Cross: 1.64 m/s2 TV Dec Time: | | | 276.68 ms TV E Ian: 0.45 m/s TV E/A Ratio: 1.71 | | | Anesthesiologist Assistant: COLIN Authenticated by: Elena Tafoya MD Report | | | Date/Time: 08-28-2014 17:41:09 | | + + + + + | Procedure Note | + + | Eliazar Falk Conversion - 06/11/2019 5:29 PM PDT Patient Name: DUDLEYOlu of | | : 1940 Performing Physician: Elena Tafoya | | ------REPORT | | ADDENDED------INDICATIONS ACUTE CA/WMA ACUTE RESP FAILURE, SNCOPE, COLLAPSE, | | SEIZRE, PYELONEPHRITIS, GERD, ARF, DM 2, HYPERTENSION, HYPOTHYROID, LACTATE BLOOD | | INCREASE, RENAL INSUFFICIENCY, LFT FLANK PAIN, D DIMER ELEVATED CONCLUSIONS 1. | | Sinus rhythm.2. A 2-dimensional transthoracic echocardiogram with m-mode, spectral and | | color flow Doppler was perfomed.3. This was a technically adequate study.4. Left | | ventricular systolic function is hyperdynamic with an estimated EF of >70%.5. The left | | ventricle cavity size is normal.6. Left ventricular wall thickness is normal.7. The | | right ventricle is normal in size.8. The left atrial size is normal.9. The right atrial | | size is normal.10. The aortic valve is trileaflet and appears structurally normal.11. | | Trace amount of aortic regurgitation.12. There is no evidence of aortic stenosis.13. | | Mild mitral regurgitation is present.14. There is mild calcification of the anterior | | mitral valve leaflet.15. There is mild calcification of the posterior mitral valve | | leaflet.16. The tricuspid valve appears structurally normal.17. Moderate tricuspid | | regurgitation present.18. There is mild pulmonary hypertension.19. The right ventricular | | systolic pressure (pulmonary artery systolic pressure), as measured by Doppler, is | | 47.61mmHg.20. A wave normal.21. There is no pericardial effusion.22. The IVC is normal | | size (1.5-2.5cm) and collapses >50% with sniff, consistent with central venous pressures | | of 5-10mmHg. FINDINGS--------ECG rhythm: Sinus rhythm.Study: A 2-dimensional | | transthoracic echocardiogram with m-mode, spectral and color flow Doppler was | | perfomed.Study: This was a technically adequate study.Left Ventricle: Left ventricular | | systolic function is hyperdynamic with an estimated EF of >70%.Left Ventricle: The left | | ventricle cavity size is normal.Left Ventricle: Left ventricular wall thickness is | | normal.Right Ventricle: The right ventricle is normal in size.Left Atrium: The left | | atrial size is normal.Right Atrium: The right atrial size is normal.Aortic Valve: The | | aortic valve is trileaflet and appears structurally normal.Aortic Valve: Trace amount of | | aortic regurgitation.Aortic Valve: There is no evidence of aortic stenosis.Mitral | | Valve: Mild mitral regurgitation is present.Mitral Valve: There is mild calcification of | | the anterior mitral valve leaflet.Mitral Valve: There is mild calcification of the | | posterior mitral valve leaflet.Tricuspid Valve: The tricuspid valve appears structurally | | normal.Tricuspid Valve: Moderate tricuspid regurgitation present.Tricuspid Valve: There | | is mild pulmonary hypertension.Tricuspid Valve: The right ventricular systolic pressure | | (pulmonary artery systolic pressure), as measured by Doppler, is 47.61mmHg.Pulmonic | | Valve: A wave normal.Pericardium: There is no pericardial effusion.IVC/Hepatic Veins: | | The IVC is normal size (1.5-2.5cm) and collapses >50% with sniff, consistent with | | central venous pressures of 5-10mmHg. MEASUREMENTS LA Major: 4.80 | | cmEDV(Teich): 66.19 mlIVSd: 0.69 cmLVIDd: 3.90 cmLVPWd: 0.79 cmLVOT Diam: 1.79 | | cm%FS: 47.56 %EF(Teich): 79.56 %ESV(Teich): 13.53 mlIVSs: 1.11 cmLVIDs: 2.04 | | cmLVPWs: 1.13 cmSV(Teich): 52.66 mlRA Major: 4.62 cmRVIDd: 2.93 cmLVEF MOD A2C: | | 88.02 %SV MOD A2C: 29.76 mlLVEF MOD A4C: 76.38 %SV MOD A4C: 26.47 mlEF Biplane: | | 82.84 %LVEDV MOD BP: 34.52 mlLVESV MOD BP: 5.92 mlLVEDV MOD A2C: 33.81 mlLVLd | | A2C: 6.16 cmLVEDV MOD A4C: 34.66 mlLVLd A4C: 6.29 cmLVESV MOD A2C: 4.04 mlLVLs | | A2C: 5.23 cmLVESV MOD A4C: 8.18 mlLVLs A4C: 4.85 cmCO Biplane: 2.09 l/minHR: | | 73.10 BPMR-R: 820.70 msLAESV(A-L): 46.74 mlLAESV Index (A-L): 27.65 ml/m2LAAs A2C: | | 17.16 [id number] A-L A2C: 44.31 mlLALs A2C: 5.64 cmLAAs A4C: 17.69 [id number] A-L | | A4C: 48.18 mlLALs A4C: 5.51 cmAo Diam: 2.78 cmAV Cusp: 1.64 cmLA Diam: 3.23 | | cmLA/Ao: 1.16%FS: 48.45 %EDV(Teich): 91.08 mlEF(Teich): 79.99 %ESV(Teich): | | 18.21 mlIVSd: 0.59 cmIVSs: 0.92 cmLVIDd: 4.47 cmLVIDs: 2.30 cmLVPWd: 0.69 | | cmLVPWs: 1.29 cmSV(Teich): 72.86 mlD-E Excursion: 1.47 cmE-F Cross: 0.07 | | m/sEPSS: 0.45 cmIVC diameter: 1.64 cmIVC collapse: 0.56 cmIVC % collapse: 63.87 | | %HR: 67.62 BPMAV maxP.56 mmHgAV meanP.44 mmHgAV Vmax: 1.46 m/Todd Vmean: | | 0.96 m/Todd VTI: 30.60 cmAVA Vmax: 2.97 cm2AVA (VTI): 2.74 [id number] Dopp: 3.43 | | l/[id number] Dopp: 5.81 l/minHR: 69.06 BPMLVOT maxP.75 mmHgLVOT meanP.02 | | mmHgLVSI Dopp: 49.78 ml/m2LVSV Dopp: 84.14 mlLVOT Vmax: 1.71 m/sLVOT Vmean: | | 1.01 m/sLVOT VTI: 33.16 cmMCO: 384.47 msMV A Ian: 1.65 m/sMV DecT: 235.34 msMV E | | Ian: 1.33 m/sMV E/A Ratio: 0.80MV PHT: 68.24 msMVA By PHT: 3.22 cm2MV A Dur: | | 85.02 msMV maxP.21 mmHgMV meanP.23 mmHgMV Vmax: 1.59 m/sMV Vmean: 0.96 | | m/sMV VTI: 44.97 cmMVA (VTI): 1.87 zl0Oodswq e': 0.07 m/sSeptal E/e': | | 16.76Lateral e': 0.07 m/sLateral E/e': 18.36P Vein A: 0.30 m/sP Vein A Dur: | | 66.54 msP Vein D: 0.54 m/sP Vein S/D Ratio: 1.59P Vein S: 0.86 m/sHR: 69.06 | | BPMPV maxP.32 mmHgPV meanP.65 mmHgPV Vmax: 0.76 m/sPV Vmean: 0.63 m/sPV | | VTI: 18.52 cmRAP: 10 mmHgRVSP: 47.61 mmHgTR maxP.61 mmHgTR Vmax: 3.06 | | m/sTV A Ian: 0.26 m/sTV Dec Cross: 1.64 m/s2TV Dec Time: 276.68 msTV E Ian: 0.45 | | m/sTV E/A Ratio: 1.71 Anesthesiologist Assistant: Melyticated by: Elena Morgan | | Date/Time: 08-28-2014 17:41:09 IMPRESSION: 1. Sinus rhythm.2. A 2-dimensional | | transthoracic echocardiogram with m-mode, spectral and color flow Doppler was | | perfomed.3. This was a technically adequate study.4. Left ventricular systolic function | | is hyperdynamic with an estimated EF of >70%.5. The left ventricle cavity size is | | normal.6. Left ventricular wall thickness is normal.7. The right ventricle is normal in | | size.8. The left atrial size is normal.9. The right atrial size is normal.10. The aortic | | valve is trileaflet and appears structurally normal.11. Trace amount of aortic | | regurgitation.12. There is no evidence of aortic stenosis.13. Mild mitral regurgitation | | is present.14. There is mild calcification of the anterior mitral valve leaflet.15. | | There is mild calcification of the posterior mitral valve leaflet.16. The tricuspid | | valve appears structurally normal.17. Moderate tricuspid regurgitation present.18. There | | is mild pulmonary hypertension.19. The right ventricular systolic pressure (pulmonary | | artery systolic pressure), as measured by Doppler, is 47.61mmHg.20. A wave normal.21. | | There is no pericardial effusion.22. The IVC is normal size (1.5-2.5cm) and collapses | | >50% with sniff, consistent with central venous pressures of 5-10mmHg. | |LVEF MOD A2C: 88.02 % | |SV MOD A2C: 29.76 ml | |LVEF MOD A4C: 76.38 % | |SV MOD A4C: 26.47 ml | |EF Biplane: 82.84 % | |LVEDV MOD BP: 34.52 ml | |LVESV MOD BP: 5.92 ml | |LVEDV MOD A2C: 33.81 ml | |LVLd A2C: 6.16 cm | |LVEDV MOD A4C: 34.66 ml | |LVLd A4C: 6.29 cm | |LVESV MOD A2C: 4.04 ml | |LVLs A2C: 5.23 cm | |LVESV MOD A4C: 8.18 ml | |LVLs A4C: 4.85 cm | |CO Biplane: 2.09 l/min | |HR: 73.10 BPM | |R-R: 820.70 ms | |LAESV(A-L): 46.74 ml | |LAESV Index (A-L): 27.65 ml/m2 | |LAAs A2C: 17.16 cm2 | |LAESV A-L A2C: 44.31 ml | |LALs A2C: 5.64 cm | |LAAs A4C: 17.69 cm2 | |LAESV A-L A4C: 48.18 ml | |LALs A4C: 5.51 cm | |Ao Diam: 2.78 cm | |AV Cusp: 1.64 cm | |LA Diam: 3.23 cm | |LA/Ao: 1.16 | |%FS: 48.45 % | |EDV(Teich): 91.08 ml | |EF(Teich): 79.99 % | |ESV(Teich): 18.21 ml | |IVSd: 0.59 cm | |IVSs: 0.92 cm | |LVIDd: 4.47 cm | |LVIDs: 2.30 cm | |LVPWd: 0.69 cm | |LVPWs: 1.29 cm | |SV(Teich): 72.86 ml | |D-E Excursion: 1.47 cm | |E-F Cross: 0.07 m/s | |EPSS: 0.45 cm | |IVC diameter: 1.64 cm | |IVC collapse: 0.56 cm | |IVC % collapse: 63.87 % | |HR: 67.62 BPM | |AV maxP.56 mmHg | |AV meanP.44 mmHg | |AV Vmax: 1.46 m/s | |AV Vmean: 0.96 m/s | |AV VTI: 30.60 cm | |RADHA Vmax: 2.97 cm2 | |RADHA (VTI): 2.74 cm2 | |LVCI Dopp: 3.43 l/minm2 | |LVCO Dopp: 5.81 l/min | |HR: 69.06 BPM | |LVOT maxP.75 mmHg | |LVOT meanP.02 mmHg | |LVSI Dopp: 49.78 ml/m2 | |LVSV Dopp: 84.14 ml | |LVOT Vmax: 1.71 m/s | |LVOT Vmean: 1.01 m/s | |LVOT VTI: 33.16 cm | |MCO: 384.47 ms | |MV A Ian: 1.65 m/s | |MV DecT: 235.34 ms | |MV E Ian: 1.33 m/s | |MV E/A Ratio: 0.80 | |MV PHT: 68.24 ms | |MVA By PHT: 3.22 cm2 | |MV A Dur: 85.02 ms | |MV maxP.21 mmHg | |MV meanP.23 mmHg | |MV Vmax: 1.59 m/s | |MV Vmean: 0.96 m/s | |MV VTI: 44.97 cm | |MVA (VTI): 1.87 cm2 | |Septal e': 0.07 m/s | |Septal E/e': 16.76 | |Lateral e': 0.07 m/s | |Lateral E/e': 18.36 | |P Vein A: 0.30 m/s | |P Vein A Dur: 66.54 ms | |P Vein D: 0.54 m/s | |P Vein S/D Ratio: 1.59 | |P Vein S: 0.86 m/s | |HR: 69.06 BPM | |PV maxP.32 mmHg | |PV meanP.65 mmHg | |PV Vmax: 0.76 m/s | |PV Vmean: 0.63 m/s | |PV VTI: 18.52 cm | |RAP: 10 mmHg | |RVSP: 47.61 mmHg | |TR maxP.61 mmHg | |TR Vmax: 3.06 m/s | |TV A Ian: 0.26 m/s | |TV Dec Cross: 1.64 m/s2 | |TV Dec Time: 276.68 ms | |TV E Ian: 0.45 m/s | |TV E/A Ratio: 1.71 | | | |Anesthesiologist Assistant: COLIN | |Authenticated by: Elena Tafoya MD | |Report Date/Time: 08-28-2014 17:41:09 | | | |IMPRESSION: | |1. Sinus rhythm. | |2. A 2-dimensional transthoracic echocardiogram with m-mode, spectral and color flow Dopple r was perfomed. | |3. This was a technically adequate study. | |4. Left ventricular systolic function is hyperdynamic with an estimated EF of >70%. | |5. The left ventricle cavity size is normal. | |6. Left ventricular wall thickness is normal. | |7. The right ventricle is normal in size. | |8. The left atrial size is normal. | |9. The right atrial size is normal. | |10. The aortic valve is trileaflet and appears structurally normal. | |11. Trace amount of aortic regurgitation. | |12. There is no evidence of aortic stenosis. | |13. Mild mitral regurgitation is present. | |14. There is mild calcification of the anterior mitral valve leaflet. | |15. There is mild calcification of the posterior mitral valve leaflet. | |16. The tricuspid valve appears structurally normal. | |17. Moderate tricuspid regurgitation present. | |18. There is mild pulmonary hypertension. | |19. The right ventricular systolic pressure (pulmonary artery systolic pressure), as measur ed by Doppler, is 47.61mmHg. | |20. A wave normal. | |21. There is no pericardial effusion. | |22. The IVC is normal size (1.5-2.5cm) and collapses >50% with sniff, consistent with centr al venous pressures of 5-10mmHg. | + + NM Lung Perfusion Ventilation (08/28/2014 8:50 AM PST) + + | Specimen | + + | | + + + + + | Impressions | Performed At | + + + | 1. Subtle inhomogeneity in the left lung base, with perhaps small | | | defect, corresponding with the infiltrative change noted on chest | | | x-ray. 2. Question subtle ventilatory retention diffusely. 3. | | | Low probability for pulmonary embolus. | | + + + + + + | Narrative | Performed At | + + + | HISTORY: Difficulty breathing. COMPARISON: Chest x-ray | | | 08/27/14. TECHNIQUE: 31 mCi Xenon-[id number] was inhaled. Scintigraphic | | | imaging of both lungs was performed including wash in, equilibrium, | | | and washout phases in the standard projections. Subsequently, 6.1 | | | mCi of technetium 99m labeled MAA (Pulmolite kit) was injected | | | intravenously and imaging of the lungs was repeated in the standard | | | projections. FINDINGS: Ventilation images show perhaps minimal | | | ventilatory retention diffusely. Perfusion images show only | | | minimal inhomogeneity in the left lung base, correlating with the | | | subtle infiltrative change noted on chest x-ray. Right lung appears | | | clear. | | + + + + + | Procedure Note | + + | Dileep, Rad Conversion - 06/11/2019 5:29 PM PDT HISTORY:Difficulty breathing. | | COMPARISON:Chest x-ray 08/27/14. TECHNIQUE:31 mCi Xenon-133 was inhaled. Scintigraphic | | imaging of both lungs was performed including wash in, equilibrium, and washout phases | | in the standard projections. Subsequently, 6.1 mCi of technetium 99m labeled MAA | | (Pulmolite kit) was injected intravenously and imaging of the lungs was repeated in the | | standard projections. FINDINGS:Ventilation images show perhaps minimal ventilatory | | retention diffusely. Perfusion images show only minimal inhomogeneity in the left lung | | base, correlating with the subtle infiltrative change noted on chest x-ray. Right lung | | appears clear. IMPRESSION: 1. Subtle inhomogeneity in the left lung base, with perhaps | | small defect, corresponding with the infiltrative change noted on chest x-ray.2. | | Question subtle ventilatory retention diffusely.3. Low probability for pulmonary | | embolus. | | | |Perfusion images show only minimal inhomogeneity in the left lung base, correlating with th e subtle infiltrative change noted on chest x-ray. Right lung appears clear. | | | |IMPRESSION: | |1. Subtle inhomogeneity in the left lung base, with perhaps small defect, corresponding wi th the infiltrative change noted on chest x-ray. | |2. Question subtle ventilatory retention diffusely. | |3. Low probability for pulmonary embolus. | | | | | + + CT Renal Stone Wo Contrast (08/28/2014 7:38 AM PST) + + | Specimen | + + | | + + + + + | Impressions | Performed At | + + + | 1. No renal stones or hydronephrosis or hydroureter. 2. | | | Calcific densities in the pelvis bilaterally. On the left this | | | overlies the left ureterovesicular junction. I cannot exclude distal | | | left ureteral stone. 3. Skaggs catheter. 4. Bilateral hip | | | prostheses. 5. Cholecystectomy, with presumed hysterectomy. | | | | | + + + + + + | Narrative | Performed At | + + + | HISTORY: Left flank pain. TECHNIQUE: 5-mm axial CT images were | | | acquired through the abdomen and pelvis for evaluation of the urinary | | | tract. No oral or IV contrast was used. COMPARISON: None. | | | FINDINGS: Strandy changes lateral right lung base and medial left | | | lung base probably due to atelectasis. There may be an element of | | | adjacent mild pleural reaction in the lateral right and medial left | | | lung bases. No effusions. Left renal pelvis is oriented | | | anteriorly, a minor rotational anomaly. Extreme beam hardening from | | | the patient's bilateral hip prostheses. There is a calcification | | | overlying the distal left ureter sequence 3 image 71. I am uncertain | | | if this are presents phlebolith or distal ureteral stone. Probable | | | phlebolith in the anterior right pelvis near the right UVJ. No | | | hydronephrosis or hydroureter. No renal stones. Advanced sigmoid | | | diverticulosis. Uterus is not seen. Clips in the gallbladder fossa. | | | Bone windows show advanced L5-S1, moderate L4-L5, mild L3-L4 | | | degenerative facet changes, with moderate vertebral endplate spurring | | | throughout the visualized spine. Subtle levoconvex scoliosis lower | | | thoracic and upper lumbar spine. | | + + + + + | Procedure Note | + + | Eliazar Falk - 06/11/2019 5:29 PM PDT HISTORY:Left flank pain. TECHNIQUE:5-mm | | axial CT images were acquired through the abdomen and pelvis for evaluation of the | | urinary tract. No oral or IV contrast was used. COMPARISON:None. FINDINGS:Strandy | | changes lateral right lung base and medial left lung base probably due to atelectasis. | | There may be an element of adjacent mild pleural reaction in the lateral right and | | medial left lung bases. No effusions. Left renal pelvis is oriented anteriorly, a minor | | rotational anomaly. Extreme beam hardening from the patient's bilateral hip prostheses. | | There is a calcification overlying the distal left ureter sequence 3 image 71. I am | | uncertain if this are presents phlebolith or distal ureteral stone. Probable phlebolith | | in the anterior right pelvis near the right UVJ. No hydronephrosis or hydroureter. No | | renal stones. Advanced sigmoid diverticulosis. Uterus is not seen. Clips in the | | gallbladder fossa. Bone windows show advanced L5-S1, moderate L4-L5, mild L3-L4 | | degenerative facet changes, with moderate vertebral endplate spurring throughout the | | visualized spine. Subtle levoconvex scoliosis lower thoracic and upper lumbar spine. | | IMPRESSION: 1. No renal stones or hydronephrosis or hydroureter.2. Calcific densities | | in the pelvis bilaterally. On the left this overlies the left ureterovesicular junction. | | I cannot exclude distal left ureteral stone.3. Skaggs catheter.4. Bilateral hip | | prostheses.5. Cholecystectomy, with presumed hysterectomy. | |1. No renal stones or hydronephrosis or hydroureter. | |2. Calcific densities in the pelvis bilaterally. On the left this overlies the left ureter ovesicular junction. I cannot exclude distal left ureteral stone. | |3. Skaggs catheter. | |4. Bilateral hip prostheses. | |5. Cholecystectomy, with presumed hysterectomy. | | | | | + + CK-MB (08/28/2014 7:20 AM PST) + + + + + -+ | Component | Value | Ref Range | Performed | Pathologist | | | | | At | Signature | + + + + + -+ | CK-MB | 2.3Comment: Testing | 0.5 - 3.6 ng/mL | EXTERNAL | | | | performed at [facility];[address] | | LAB | | | | [address];[place] | | | | | | [address] | | | | + + + + + -+ | CK-MB Index | 2.4Comment: CK INDEX | | EXTERNAL | | | | INTERPRETATION: | | LAB | | | | MMB ng/mL | | | | | | | | | | | |CK INDEX INTERPRETATION: | | | | | | MMB ng/mL | | | | | | | | | | + + + + + -+ + + | Specimen | + + | | + + + +---------+ + + | Performing | Address | City/State/Zipcode | Phone Number | | Organization | | | | + +---------+ + + | EXTERNAL LAB | | | | + +---------+ + + Troponin I (08/28/2014 7:20 AM PST) + + + + + + | Component | Value | Ref Range | Performed | Pathologist | | | | | At | Signature | + + + + + + | Troponin I, | 0.023Comment: 0.00 to | 0.00 - 0.10 | EXTERNAL | | | Qual | 0.10 CONSISTENT WITH | ng/mL | LAB | | | | NORMAL POPULATION0.11 to | | | | | | 0.60 CONSISTENT WITH | | | | | | INCREASED RISK FOR | | | | | | ADVERSE OUTCOMES> 0.60 | | | | | | CONSISTENT | | | | | | WITH WHO CRITERIA FOR | | | | | | ACUTE CA Testing | | | | | | performed at [facility] | | | | | | [facility];[place], [place] | | | | | | [address] | | | | + + + + + + + + | Specimen | + + | Blood specimen | | (specimen) | + + + +---------+ + + | Performing | Address | City/State/Zipcode | Phone Number | | Organization | | | | + +---------+ + + | EXTERNAL LAB | | | | + +---------+ + + Lactic Acid (08/28/2014 7:20 AM PST) + + + + + + | Component | Value | Ref Range | Performed | Pathologist | | | | | At | Signature | + + + + + + | Lactate | 0.9Comment: Testing | 0.4 - 2.0 | EXTERNAL | | | | performed at [facility];[address] | mmol/L | LAB | | | | [facility];[place], [place] | | | | | | [address] | | | | + + + + + + + + | Specimen | + + | Blood specimen | | (specimen) | + + + +---------+ + + | Performing | Address | City/State/Zipcode | Phone Number | | Organization | | | | + +---------+ + + | EXTERNAL LAB | | | | + +---------+ + + CK Total (08/28/2014 7:20 AM PST) + + + + + + | Component | Value | Ref Range | Performed | Pathologist | | | | | At | Signature | + + + + + + | CK, Total | 96Comment: SLT | 30 - 240 U/L | EXTERNAL | | | | HEMOLYSISTesting | | LAB | | | | performed at [facility];[address] | | | | | | [address];[place] | | | | | | [address] | | | | + + + + + + + + | Specimen | + + | Blood specimen | | (specimen) | + + + +---------+ + + | Performing | Address | City/State/Zipcode | Phone Number | | Organization | | | | + +---------+ + + | EXTERNAL LAB | | | | + +---------+ + + Potassium (08/28/2014 6:20 AM PST) + + + + + + | Component | Value | Ref Range | Performed | Pathologist | | | | | At | Signature | + + + + + + | K | 3.3 (L)Comment: Testing | 3.5 - 4.9 | EXTERNAL | | | | performed at [facility], [address] | mmol/L | LAB | | | | [address], | | | | | | [place] [address] | | | | + + + + + + + + | Specimen | + + | Blood specimen | | (specimen) | + + + +---------+ + + | Performing | Address | City/State/Zipcode | Phone Number | | Organization | | | | + +---------+ + + | EXTERNAL LAB | | | | + +---------+ + + POC Glucose (08/28/2014 5:12 AM PST) + + + + + + | Component | Value | Ref Range | Performed | Pathologist | | | | | At | Signature | + + + + + + | Glucose, | 102 (H)Comment: Testing | 65 - 99 mg/dL | EXTERNAL | | | Fingerstick | performed at [facility];[address] | | LAB | | | | [address];[place] | | | | | | [address] | | | | + + + + + + + + | Specimen | + + | | + + + +---------+ + + | Performing | Address | City/State/Zipcode | Phone Number | | Organization | | | | + +---------+ + + | EXTERNAL LAB | | | | + +---------+ + + VAS Lower Extremity Venous Bilateral (08/28/2014 1:40 AM PDT) + + | Specimen | + + | | + + + + + | Impressions | Performed At | + + + | Negative for deep venous thrombosis in bilateral lower extremities. | | | PATO Electronically signed by García Ferrera MD on Aug | | | 2013 1:21AM Referring Provider Line: [phone] ID: [id number] | | + + + + + + | Narrative | Performed At | + + + | EXAM: BILATERAL LOWER EXTREMITY VENOUS ULTRASOUND EXAM DATE: | | | 08/28/2014 01:41 AM. CLINICAL HISTORY: Elevated d-dimer. | | | COMPARISON: None. TECHNIQUE: Real-time sonographic vascular | | | imaging was performed by the residential collections through the lower extremities | | | utilizing both color-flow and Doppler spectral analysis. Multiple | | | site safety representative static images were saved for review. FINDINGS: | | | Right: Common Femoral Vein (CFV): Normal. Profunda Femoral Vein | | | (PFV): Normal. Superficial Femoral Vein (SFV) Prox: Normal. | | | Superficial Femoral Vein (SFV) Mid: Normal. Superficial Femoral Vein | | | (SFV) Dist: Normal. Popliteal Vein: Normal. Posterior Tibial Veins: | | | Normal. Peroneal Veins: Normal. Left: Common Femoral Vein (CFV): | | | Normal. Profunda Femoral Vein (PFV): Normal. Superficial Femoral | | | Vein (SFV) Prox: Normal. Superficial Femoral Vein (SFV) Mid: Normal. | | | Superficial Femoral Vein (SFV) Dist: Normal. Popliteal Vein: Normal. | | | Posterior Tibial Veins: Normal. Peroneal Veins: Normal. Other: | | | None. | | + + + + + | Procedure Note | + + | Eliazar Falk Conversion - 06/11/2019 5:29 PM PDT EXAM:BILATERAL LOWER EXTREMITY VENOUS | | ULTRASOUND EXAM DATE: 08/28/2014 01:41 AM. CLINICAL HISTORY: Elevated d-dimer. | | COMPARISON: None. TECHNIQUE: Real-time sonographic vascular imaging was performed by the | | residential collections through the lower extremities utilizing both color-flow and Doppler | | spectral analysis. Multiple site safety representative static images were saved for review. | | FINDINGS:Right:Common Femoral Vein (CFV): Normal.Profunda Femoral Vein (PFV): | | Normal.Superficial Femoral Vein (SFV) Prox: Normal.Superficial Femoral Vein (SFV) Mid: | | Normal.Superficial Femoral Vein (SFV) Dist: Normal.Popliteal Vein: Normal.Posterior | | Tibial Veins: Normal.Peroneal Veins: Normal. Left:Common Femoral Vein (CFV): | | Normal.Profunda Femoral Vein (PFV): Normal.Superficial Femoral Vein (SFV) Prox: | | Normal.Superficial Femoral Vein (SFV) Mid: Normal.Superficial Femoral Vein (SFV) Dist: | | Normal.Popliteal Vein: Normal.Posterior Tibial Veins: Normal.Peroneal Veins: Normal. | | Other: None. IMPRESSION: Negative for deep venous thrombosis in bilateral lower | | extremities. RADIA Electronically signed by García Ferrera MD on Aug 28 2014 | | 1:21AM Referring Provider Line: [phone] ID: [id number] | |Superficial Femoral Vein (SFV) Prox: Normal. | |Superficial Femoral Vein (SFV) Mid: Normal. | |Superficial Femoral Vein (SFV) Dist: Normal. | |Popliteal Vein: Normal. | |Posterior Tibial Veins: Normal. | |Peroneal Veins: Normal. | | | |Left: | |Common Femoral Vein (CFV): Normal. | |Profunda Femoral Vein (PFV): Normal. | |Superficial Femoral Vein (SFV) Prox: Normal. | |Superficial Femoral Vein (SFV) Mid: Normal. | |Superficial Femoral Vein (SFV) Dist: Normal. | |Popliteal Vein: Normal. | |Posterior Tibial Veins: Normal. | |Peroneal Veins: Normal. | | | |Other: None. | | | |IMPRESSION: | |Negative for deep venous thrombosis in bilateral lower extremities. | | | |RADIA | | | | Electronically signed by García Ferrera MD on Aug 28 2014 1:21AM Referring Provider Line: [phone] ID: [id number] | + + POC Glucose (08/28/2014 1:34 AM PDT) + + + + + + | Component | Value | Ref Range | Performed | Pathologist | | | | | At | Signature | + + + + + + | Glucose, | 116 (H)Comment: Testing | 65 - 99 mg/dL | EXTERNAL | | | Fingerstick | performed at [facility];[address] | | LAB | | | | [address];[place] | | | | | | [address] | | | | + + + + + + + + | Specimen | + + | | + + + +---------+ + + | Performing | Address | City/State/Zipcode | Phone Number | | Organization | | | | + +---------+ + + | EXTERNAL LAB | | | | + +---------+ + + CK-MB (08/28/2014 1:29 AM PDT) + + + + + -+ | Component | Value | Ref Range | Performed | Pathologist | | | | | At | Signature | + + + + + -+ | CK-MB | 3.5Comment: Testing | 0.5 - 3.6 ng/mL | EXTERNAL | | | | performed at [facility];[address] | | LAB | | | | [address];[place] | | | | | | [address] | | | | + + + + + -+ | CK-MB Index | 3.5Comment: CK INDEX | | EXTERNAL | | | | INTERPRETATION: | | LAB | | | | MMB ng/mL | | | | | | | | | | | |CK INDEX INTERPRETATION: | | | | | | MMB ng/mL | | | | | | | | | | + + + + + -+ + + | Specimen | + + | | + + + +---------+ + + | Performing | Address | City/State/Zipcode | Phone Number | | Organization | | | | + +---------+ + + | EXTERNAL LAB | | | | + +---------+ + + Troponin I (08/28/2014 1:29 AM PDT) + + + + + + | Component | Value | Ref Range | Performed | Pathologist | | | | | At | Signature | + + + + + + | Troponin I, | 0.051Comment: 0.00 to | 0.00 - 0.10 | EXTERNAL | | | Qual | 0.10 CONSISTENT WITH | ng/mL | LAB | | | | NORMAL POPULATION0.11 to | | | | | | 0.60 CONSISTENT WITH | | | | | | INCREASED RISK FOR | | | | | | ADVERSE OUTCOMES> 0.60 | | | | | | CONSISTENT | | | | | | WITH WHO CRITERIA FOR | | | | | | ACUTE CA Testing | | | | | | performed at [facility];[address] | | | | | | [address];[place], [place] | | | | | | [address] | | | | + + + + + + + + | Specimen | + + | | + + + +---------+ + + | Performing | Address | City/State/Zipcode | Phone Number | | Organization | | | | + +---------+ + + | EXTERNAL LAB | | | | + +---------+ + + External Lab: CBC (08/28/2014 1:29 AM PDT) + + + + + + | Component | Value | Ref Range | Performed | Pathologist | | | | | At | Signature | + + + + + + | WBC | 12.0 (H)Comment: Testing | 3.8 - 11.0 K/uL | EXTERNAL | | | | performed at [facility], [address] | | LAB | | | | [address], | | | | | | [place] [address] | | | | + + + + + + | RED CELL | 4.06Comment: Testing | 3.70 - 5.10 | EXTERNAL | | | COUNT | performed at [facility], [address] | M/uL | LAB | | | | [address], | | | | | | [place] [address] | | | | + + + + + + | Hgb | 12.8Comment: Testing | 11.3 - 15.5 | EXTERNAL | | | | performed at [facility], [address] | g/dL | LAB | | | | [address], | | | | | | [place] [address] | | | | + + + + + + | Hematocrit, | 36.0Comment: Testing | 34.0 - 46.0 % | EXTERNAL | | | POC | performed at [facility], [address] | | LAB | | | [address], | | | | | | [place] [address] | | | | + + + + + + | MCV | 88.8Comment: Testing | 80.0 - 100.0 fl | EXTERNAL | | | | performed at [facility], [address] | | LAB | | | | [address], | | | | | | [place] [address] | | | | + + + + + + | MCH | 31.5Comment: Testing | 27.0 - 34.0 pg | EXTERNAL | | | | performed at [facility], [address] | | LAB | | | | [address], | | | | | | [place] [address] | | | | + + + + + + | MCHC | 35.4Comment: Testing | 32.0 - 35.5 | EXTERNAL | | | | performed at [facility], [address] | g/dL | LAB | | | | [address], | | | | | | [place] [address] | | | | + + + + + + | RDW-CV | 40.3Comment: Testing | 37 - 53 fl | EXTERNAL | | | | performed at [facility], [address] | | LAB | | | | [address], | | | | | | [place] [address] | | | | + + + + + + | Platelet | 299Comment: Testing | 150 - 400 K/uL | EXTERNAL | | | Count | performed at [facility], [address] | | LAB | | | Plasma | [address], | | | | | | [place] [address] | | | | + + + + + + | MPV | 8.5Comment: Testing | fl | EXTERNAL | | | | performed at [facility], [address] | | LAB | | | | [address], | | | | | | [place] [address] | | | | + + + + + + | Differentia | AUTOMATEDComment: | | EXTERNAL | | | l Type | Testing performed at | | LAB | | | | [facility], [address] | | | | | | [place] | | | | | | [address] | | | | + + + + + + | % Segmented | 69.8Comment: Testing | % | EXTERNAL | | | | performed at [facility], [address] | | LAB | | | Neutrophils | [address], | | | | | | [place] [address] | | | | + + + + + + | % | 20.4Comment: Testing | % | EXTERNAL | | | Lymphocytes | performed at [facility], [address] | | LAB | | | | [address], | | | | | | [place] [address] | | | | + + + + + + | % Monocytes | 8.5Comment: Testing | % | EXTERNAL | | | | performed at [facility], [address] | | LAB | | | | [address], | | | | | | [place] [address] | | | | + + + + + + | % | 1.1Comment: Testing | % | EXTERNAL | | | Eosinophils | performed at [facility], [address] | | LAB | | | | [address], | | | | | | [place] [id number] | | | | + + + + + + | % Basophils | 0.2Comment: Testing | % | EXTERNAL | | | | performed at [facility], [address] | | LAB | | | | [address], | | | | | | [place] [id number] | | | | + + + + + + | Absolute | 8.4 (H)Comment: Testing | 1.9 - 7.4 K/uL | EXTERNAL | | | Segmented | performed at [facility], [address] | | LAB | | | Neutrophils | [address], | | | | | | [place] [address] | | | | + + + + + + | Absolute | 2.4Comment: Testing | 1.0 - 3.9 K/uL | EXTERNAL | | | Lymphocytes | performed at [facility], [address] | | LAB | | | | [address], | | | | | | [place] [address] | | | | + + + + + + | Absolute | 1.0 (H)Comment: Testing | 0 - 0.8 K/uL | EXTERNAL | | | Monocytes | performed at [facility], [address] | | LAB | | | | [address], | | | | | | [place] [address] | | | | + + + + + + | Absolute | 0.1Comment: Testing | 0 - 0.5 K/uL | EXTERNAL | | | Eosinophils | performed at [facility], [address] | | LAB | | | | [address], | | | | | | [place] [address] | | | | + + + + + + | Absolute | 0.0Comment: Testing | 0 - 0.1 K/uL | EXTERNAL | | | Basophils | performed at [facility], [address] | | LAB | | | | [address], | | | | | | [place] [address] | | | | + + + + + + + + | Specimen | + + | Blood specimen | | (specimen) | + + + +---------+ + + | Performing | Address | City/State/Zipcode | Phone Number | | Organization | | | | + +---------+ + + | EXTERNAL LAB | | | | + +---------+ + + CK Total (08/28/2014 1:29 AM PDT) + + + + + + | Component | Value | Ref Range | Performed | Pathologist | | | | | At | Signature | + + + + + + | CK, Total | 100Comment: Testing | 30 - 240 U/L | EXTERNAL | | | | performed at [facility];[address] | | LAB | | | | [address];[place] | | | | | | [address] | | | | + + + + + + + + | Specimen | + + | | + + + +---------+ + + | Performing | Address | City/State/Zipcode | Phone Number | | Organization | | | | + +---------+ + + | EXTERNAL LAB | | | | + +---------+ + + Comprehensive Metabolic Panel (08/28/2014 1:29 AM PDT) + + + + + + | Component | Value | Ref Range | Performed | Pathologist | | | | | At | Signature | + + + + + + | Na | 141Comment: Testing | 135 - 143 | EXTERNAL | | | | performed at [facility];[address] | mmol/L | LAB | | | | [address];[place] | | | | | | [address] | | | | + + + + + + | K | 2.5 (LL)Comment: K | 3.5 - 4.9 | EXTERNAL | | | | PHONED TO [facility]illo AT | mmol/L | LAB | | | | 0755 BY VINEETREAD BACK | | | | | | RESULTS VERIFIEDTesting | | | | | | performed at [facility];[address] | | | | | | [address];[place] | | | | | | [address] | | | | + + + + + + | Cl | 107Comment: Testing | 99 - 109 mmol/L | EXTERNAL | | | | performed at [facility];[address] | | LAB | | | | [address];[place] | | | | | | [address] | | | | + + + + + + | CO2 | 25Comment: Testing | 23 - 32 mmol/L | EXTERNAL | | | | performed at [facility];[address] | | LAB | | | | [address];[place] | | | | | | [address] | | | | + + + + + + | Anion Gap | 12Comment: Testing | 5 - 20 mmol/L | EXTERNAL | | | | performed at [facility];[address] | | LAB | | | | [address];[place] | | | | | | [address] | | | | + + + + + + | Glucose, | 98Comment: Testing | 65 - 99 mg/dL | EXTERNAL | | | Fasting | performed at [facility];[address] | | LAB | | | | [address];[place] | | | | | | [address] | | | | + + + + + + | BUN | 14Comment: Testing | 8 - 25 mg/dL | EXTERNAL | | | | performed at [facility];[address] | | LAB | | | | [address];[place] | | | | | | [address] | | | | + + + + + + | Creatinine | 0.78Comment: Testing | 0.50 - 1.00 | EXTERNAL | | | | performed at [facility];[address] | mg/dL | LAB | | | | [address];[place] | | | | | | [address] | | | | + + + + + + | BUN/Creatin | 18Comment: Testing | | EXTERNAL | | | ine Ratio | performed at [facility];[address] | | LAB | | | | [address];[place] | | | | | | [address] | | | | + + + + + + | Calcium | 8.7Comment: Testing | 8.5 - 10.2 | EXTERNAL | | | | performed at [facility];[address] | mg/dL | LAB | | | | [address];[place] | | | | | | [address] | | | | + + + + + + | Protein, | 6.7Comment: Testing | 6.3 - 8.2 g/dL | EXTERNAL | | | Total | performed at [facility];[address] | | LAB | | | | [address];[place] | | | | | | [address] | | | | + + + + + + | Albumin | 3.6Comment: Testing | 3.3 - 4.8 g/dL | EXTERNAL | | | | performed at [facility];[address] | | LAB | | | | [address];[place] | | | | | | [address] | | | | + + + + + + | Globulin | 3.1Comment: Testing | 1.3 - 4.9 g/dL | EXTERNAL | | | | performed at [facility];[address] | | LAB | | | | [address];[place] | | | | | | [address] | | | | + + + + + + | A/G Ratio | 1.2Comment: Testing | 1.0 - 2.4 | EXTERNAL | | | | performed at [facility];[address] | | LAB | | | | [address];[place] | | | | | | [address] | | | | + + + + + + | Bilirubin | 0.4Comment: Testing | 0.1 - 1.5 mg/dL | EXTERNAL | | | Total | performed at [facility];[address] | | LAB | | | | [address];[place] | | | | | | [address] | | | | + + + + + + | ALP, | 88Comment: Testing | 35 - 115 U/L | EXTERNAL | | | External | performed at [facility];[address] | | LAB | | | | [address];[place] | | | | | | [address] | | | | + + + + + + | AST | 31Comment: Testing | 10 - 45 U/L | EXTERNAL | | | | performed at [facility];[address] | | LAB | | | | [address];[place] | | | | | | [address] | | | | + + + + + + | ALT | 31Comment: Testing | 10 - 65 U/L | EXTERNAL | | | | performed at [facility];[address] | | LAB | | | | [address];[place] | | | | | | [address] | | | | + + + + + + | Estimated | >60Comment: GFR <60: | mL/min/1.73m2 | EXTERNAL | | | GFR | CHRONIC KIDNEY DISEASE, | | LAB | | | | IF FOUND OVER A 3 MONTH | | | | | | PERIOD.GFR <15: KIDNEY | | | | | | FAILURE.FOR | | | | | | AMERICANS, MULTIPLY THE | | | | | | CALCULATED GFR BY | | | | | | 1.210.Testing performed | | | | | | at [facility];[address];[place] [address] | | | | + + + + + + + + | Specimen | + + | Blood specimen | | (specimen) | + + + +---------+ + + | Performing | Address | City/State/Zipcode | Phone Number | | Organization | | | | + +---------+ + + | EXTERNAL LAB | | | | + +---------+ + + MRI Brain Wo [facility] Head [facility] (08/28/2014 12:45 AM PDT) + + | Specimen | + + | | + + + + + | Impressions | Performed At | + + + | Prominent nonspecific white matter change. No acute intracranial | | | process identified. No significant abnormality identified on | | | intracranial MR angiography. Electronically signed by Ryland | | | MD Lucrecia on Aug 28 2014 1:58AM Referring Provider Line: | | | [phone] ID: [id number] | | + + + + + + | Narrative | Performed At | + + + | MR brain MR brain without contrast, MR angiogram brain | | | INDICATION: Altered mental status. Seizure. Technique : | | | multisequence, multiplanar MR imaging of the brain without IV | | | contrast. 3-D nlwj-yf-rthxxo MR angiography with MIP reconstruction | | | COMPARISON: Head CT 08/27/2014 FINDINGS: Diffusely prominent | | | CSF spaces in keeping with the patient's age. There is moderately | | | extensive nonspecific white matter change within the cerebral | | | hemispheres bilaterally. This appears associated with generalized | | | white matter volume loss and prominent lateral ventricles bilaterally. | | | There is quite extensive involvement of the immediate | | | periventricular white matter as well as multiple juxtacortical | | | lesions. No evidence of acute infarct. No space-occupying lesion, | | | hemorrhage, extracerebral fluid collection. No convincing evidence of | | | active hydrocephalus. Skull base is unremarkable. Expected flow | | | voids are identified. MR angiogram demonstrates no evidence of | | | major vessel stenosis, occlusion, aneurysm, dissection, thrombi or | | | vascular malformation. Vertebral arteries are codominant. Basilar | | | artery and both posterior cerebral arteries are patent and | | | unremarkable. There is a patent right posterior communicating artery, | | | left is hypoplastic or atretic. Both internal carotid arteries, | | | anterior and middle cerebral arteries are patent and unremarkable. A | | | definite anterior communicating artery is not seen. | | + + + + + | Procedure Note | + + | Dileep, Rad Conversion - 06/11/2019 5:29 PM PDT MR brain MR brain without contrast, MR | | angiogram brain INDICATION: Altered mental status. Seizure. Technique : multisequence, | | multiplanar MR imaging of the brain without IV contrast. 3-D xpil-rg-xiovpr MR | | angiography with MIP reconstruction COMPARISON: Head CT 08/27/2014 FINDINGS:Diffusely | | prominent CSF spaces in keeping with the patient's age. There is moderately extensive | | nonspecific white matter change within the cerebral hemispheres bilaterally. This | | appears associated with generalized white matter volume loss and prominent lateral | | ventricles bilaterally. There is quite extensive involvement of the immediate | | periventricular white matter as well as multiple juxtacortical lesions. No evidence of | | acute infarct. No space-occupying lesion, hemorrhage, extracerebral fluid collection. No | | convincing evidence of active hydrocephalus. Skull base is unremarkable. Expected flow | | voids are identified. MR angiogram demonstrates no evidence of major vessel stenosis, | | occlusion, aneurysm, dissection, thrombi or vascular malformation. Vertebral arteries | | are codominant. Basilar artery and both posterior cerebral arteries are patent and | | unremarkable. There is a patent right posterior communicating artery, left is | | hypoplastic or atretic. Both internal carotid arteries, anterior and middle cerebral | | arteries are patent and unremarkable. A definite anterior communicating artery is not | | seen. IMPRESSION: Prominent nonspecific white matter change. No acute intracranial | | process identified. No significant abnormality identified on intracranial MR | | angiography. Electronically signed by Ryland Singer MD on Aug 28 2014 1:58AM Referring | | Provider Line: [phone] ID: [id number] | | | |Both internal carotid arteries, anterior and middle cerebral arteries are patent and unrema rkable. A definite anterior communicating artery is not seen. | | | |IMPRESSION: | | | | Prominent nonspecific white matter change. No acute intracranial process identified. | | | |No significant abnormality identified on intracranial MR angiography. | | | | Electronically signed by Ryland Singer MD on Aug 28 2014 1:58AM Referring Provider Line: [phone] ID: [id number] | + + HISTORICAL MICROBIOLOGY RESULT (08/27/2014 6:30 PM PDT) + + | Specimen | + + | Stool specimen | | (specimen) | + + + + + | Narrative | Performed At | + + + | Toxigenic C Difficile NEGATIVE Testing | EXTERNAL LAB | | performed at [facility];[address] [facility];[place] [address] 027 NAP1 BI | | | 027 NAP1 BI PRESUMPTIVE NEGATIVE | | | Detection of 027 NAP1 BI strains of C. difficile is presumptive and | | | for epidemiological purposes and not intended to guide or monitor | | | treatment for C. difficile infections. Testing performed at [facility];[address] | | | [facility];[place] [address] | | + + + + +---------+ + + | Performing | Address | City/State/Zipcode | Phone Number | | Organization | | | | + +---------+ + + | EXTERNAL LAB | | | | + +---------+ + + Culture, Stool (08/27/2014 6:30 PM PDT) + + | Specimen | + + | Stool specimen | | (specimen) | + + + + + | Narrative | Performed At | + + + | Specimen Description STOOL CULTURE | EXTERNAL LAB | | NEGATIVE FOR SHIGA TOXIN TYPE 1 | | | AND 2. NEGATIVE | | | FOR SALMONELLA, SHIGELLA AND CAMPYLOBACTER | | | IF A YERSINIA OR VIBRIO IS SUSPECTED, | | | PLEASE CONTACT THE MICRO LAB FOR SPECIAL TESTING. | | | Testing performed at [facility], [address] | | [place] [address] | | + + + + +---------+ + + | Performing | Address | City/State/Zipcode | Phone Number | | Organization | | | | + +---------+ + + | EXTERNAL LAB | | | | + +---------+ + + CT Head wo Contrast (08/27/2014 6:15 PM PDT) + + | Specimen | + + | | + + + + + | Impressions | Performed At | + + + | 1. Mild hydrocephalus, with slight asymmetric ectasia of the left | | | lateral ventricle-without positive mass effect 2. White matter | | | disease, without convincing evidence of acute ischemia or hemorrhage | | | No evidence of posttraumatic changes. | | + + + + + + | Narrative | Performed At | + + + | HISTORY:trauma, demographics unknown. TECHNIQUE: Axial | | | noncontrast head CT. Prior examination: None. FINDINGS: | | | Anesthesiologists' Assistant notable for midline endotracheal tube and enteric tube-not fully | | | evaluated here The falx is midline. There is no evidence of | | | abnormal extra axial fluid collection or hemorrhage. The sulcation | | | symmetric, the nation-white demarcation is preserved. There is an | | | element of ventriculomegaly with slight asymmetry, the left lateral | | | ventricle is more prominent, the posterior horn measures about 2 cm. | | | The imaging standard for hydrocephalus-although there is no midline | | | shift or positive mass effect. Periventricular white matter disease. | | | There is a miniscule calcification about the right basal ganglia on | | | image 16 of the reconstructed images. No hemorrhage. Probable | | | artifact, fairly symmetric and in typical basilar/peripheral | | | distributions. No aggressive or lytic calvarial lesion. No | | | evidence of active fluid, mastoid or sinus disease. Middle ears and | | | mastoids are clear. There is no calvarial fracture. Superficial | | | tissues are without cephalhematoma. There is dense beam hardening | | | artifact due to dentition especially to the left of midline. | | + + + + + | Procedure Note | + + | Dileep, Eliazar Conversion - 06/11/2019 5:29 PM PDT HISTORY:trauma, demographics unknown. | | TECHNIQUE: Axial noncontrast head CT. Prior examination: None. FINDINGS: Anesthesiologists' Assistant notable | | for midline endotracheal tube and enteric tube-not fully evaluated here The falx is | | midline. There is no evidence of abnormal extra axial fluid collection or hemorrhage. | | The sulcation symmetric, the nation-white demarcation is preserved. There is an element of | | ventriculomegaly with slight asymmetry, the left lateral ventricle is more prominent, | | the posterior horn measures about 2 cm. The imaging standard for hydrocephalus-although | | there is no midline shift or positive mass effect. Periventricular white matter disease. | | There is a miniscule calcification about the right basal ganglia on image 16 of the | | reconstructed images. No hemorrhage. Probable artifact, fairly symmetric and in typical | | basilar/peripheral distributions. No aggressive or lytic calvarial lesion. No evidence | | of active fluid, mastoid or sinus disease. Middle ears and mastoids are clear. There is | | no calvarial fracture. Superficial tissues are without cephalhematoma. There is dense | | beam hardening artifact due to dentition especially to the left of midline. IMPRESSION: | | 1. Mild hydrocephalus, with slight asymmetric ectasia of the left lateral | | ventricle-without positive mass effect 2. White matter disease, without convincing | | evidence of acute ischemia or hemorrhage No evidence of posttraumatic changes. | | | |No aggressive or lytic calvarial lesion. No evidence of active fluid, mastoid or sinus dise ase. Middle ears and mastoids are clear. There is no calvarial fracture. Superficial tissues are without cephalhematoma. There | |is dense beam hardening artifact due | | to dentition especially to the left of midline. | | | |IMPRESSION: | | | |1. Mild hydrocephalus, with slight asymmetric ectasia of the left lateral ventricle-without positive mass effect | | | |2. White matter disease, without convincing evidence of acute ischemia or hemorrhage | | | |No evidence of posttraumatic changes. | | | | | + + HISTORICAL LAB PANEL RESULT (08/27/2014 5:42 PM PDT) + + + + + -+ | Component | Value | Ref Range | Performed | Pathologist | | | | | At | Signature | + + + + + -+ | WBC | 7.5Comment: Testing | 3.8 - 11.0 K/uL | EXTERNAL | | | | performed at [facility];[address] | | LAB | | | [address];[place] | | | | | | [address] | | | | + + + + + -+ | RED CELL | 4.08Comment: Testing | 3.70 - 5.10 | EXTERNAL | | | COUNT | performed at [facility];[address] | M/uL | LAB | | | | [address];[place] | | | | | | [address] | | | | + + + + + -+ | Hgb | 12.8Comment: Testing | 11.3 - 15.5 | EXTERNAL | | | | performed at [facility];[address] | g/dL | LAB | | | | [address];[place] | | | | | | [address] | | | | + + + + + -+ | Hematocrit, | 36.1Comment: Testing | 34.0 - 46.0 % | EXTERNAL | | | POC | performed at [facility];[address] | | LAB | | | [address];[place] | | | | | | [address] | | | | + + + + + -+ | MCV | 88.5Comment: Testing | 80.0 - 100.0 fl | EXTERNAL | | | | performed at [facility];[address] | | LAB | | | [address];[place] | | | | | | [address] | | | | + + + + + -+ | MCH | 31.3Comment: Testing | 27.0 - 34.0 pg | EXTERNAL | | | | performed at [facility];[address] | | LAB | | | [address];[place] | | | | | | [address] | | | | + + + + + -+ | MCHC | 35.4Comment: Testing | 32.0 - 35.5 | EXTERNAL | | | | performed at [facility];[address] | g/dL | LAB | | | | [address];[place] | | | | | | [address] | | | | + + + + + -+ | RDW-CV | 40.7Comment: Testing | 37 - 53 fl | EXTERNAL | | | | performed at [facility];[address] | | LAB | | | [address];[place] | | | | | | [address] | | | | + + + + + -+ | Platelet | 326Comment: Testing | 150 - 400 K/uL | EXTERNAL | | | Count | performed at [facility];[address] | | LAB | | | Plasma | [address];[place] | | | | | | [address] | | | | + + + + + -+ | MPV | 7.8Comment: Testing | fl | EXTERNAL | | | | performed at [facility];[address] | | LAB | | | [address];[place] | | | | | | [address] | | | | + + + + + -+ | Differentia | AUTOMATEDComment: | | EXTERNAL | | | l Type | Testing performed at | | LAB | | | | [facility];[address];[place] [address] | | | | + + + + + -+ | % Segmented | 59.9Comment: Testing | % | EXTERNAL | | | | performed at [facility];[address] | | LAB | | | Neutrophils | [address];[place] | | | | | | [address] | | | | + + + + + -+ | % | 29.6Comment: Testing | % | EXTERNAL | | | Lymphocytes | performed at [facility];[address] | | LAB | | | [address];[place] | | | | | | [address] | | | | + + + + + -+ | % Monocytes | 7.9Comment: Testing | % | EXTERNAL | | | | performed at [facility];[address] | | LAB | | | | [address];[place] | | | | | | [address] | | | | + + + + + -+ | % | 1.7Comment: Testing | % | EXTERNAL | | | Eosinophils | performed at [facility];[address] | | LAB | | | [address];[place] | | | | | | [address] | | | | + + + + + -+ | % Basophils | 0.9Comment: Testing | % | EXTERNAL | | | | performed at [facility];[address] | | LAB | | | | [address];[place] | | | | | | [address] | | | | + + + + + -+ | Absolute | 4.5Comment: Testing | 1.9 - 7.4 K/uL | EXTERNAL | | | Segmented | performed at [facility];[address] | | LAB | | | Neutrophils | [address];[place] | | | | | | [address] | | | | + + + + + -+ | Absolute | 2.2Comment: Testing | 1.0 - 3.9 K/uL | EXTERNAL | | | Lymphocytes | performed at [facility];[address] | | LAB | | | | [address];[place] | | | | | | [address] | | | | + + + + + -+ | Absolute | 0.6Comment: Testing | 0 - 0.8 K/uL | EXTERNAL | | | Monocytes | performed at [facility];[address] | | LAB | | | [address];[place] | | | | | | [address] | | | | + + + + + -+ | Absolute | 0.1Comment: Testing | 0 - 0.5 K/uL | EXTERNAL | | | Eosinophils | performed at [facility];[address] | | LAB | | | | [address];[place] | | | | | | [address] | | | | + + + + + -+ | Absolute | 0.1Comment: Testing | 0 - 0.1 K/uL | EXTERNAL | | | Basophils | performed at [facility];[address] | | LAB | | | | [address];[place] | | | | | | [address] | | | | + + + + + -+ | Na | 137Comment: Testing | 135 - 143 | EXTERNAL | | | | performed at [facility];[address] | mmol/L | LAB | | | | [address];[place] | | | | | | [address] | | | | + + + + + -+ | K | 3.1 (L)Comment: Testing | 3.5 - 4.9 | EXTERNAL | | | | performed at [facility];[address] | mmol/L | LAB | | | | [address];[place] | | | | | | [address] | | | | + + + + + -+ | Cl | 104Comment: Testing | 99 - 109 mmol/L | EXTERNAL | | | | performed at [facility];[address] | | LAB | | | | [address];[place] | | | | | | [address] | | | | + + + + + -+ | CO2 | 22 (L)Comment: Testing | 23 - 32 mmol/L | EXTERNAL | | | | performed at [facility];[address] | | LAB | | | | [address];[place] | | | | | | [address] | | | | + + + + + -+ | Anion Gap | 14Comment: Testing | 5 - 20 mmol/L | EXTERNAL | | | | performed at [facility];[address] | | LAB | | | | [address];[place] | | | | | | [address] | | | | + + + + + -+ | Glucose, | 131 (H)Comment: Testing | 65 - 99 mg/dL | EXTERNAL | | | Fasting | performed at [facility];[address] | | LAB | | | | [address];[place] | | | | | | [address] | | | | + + + + + -+ | BUN | 19Comment: Testing | 8 - 25 mg/dL | EXTERNAL | | | | performed at [facility];[address] | | LAB | | | | [address];[place] | | | | | | [address] | | | | + + + + + -+ | Creatinine | 1.05 (H)Comment: Testing | 0.50 - 1.00 | EXTERNAL | | | | performed at [facility];[address] | mg/dL | LAB | | | | [address];[place] | | | | | | [address] | | | | + + + + + -+ | BUN/Creatin | 19Comment: Testing | | EXTERNAL | | | ine Ratio | performed at [facility];[address] | | LAB | | | | [address];[place] | | | | | | [address] | | | | + + + + + -+ | Calcium | 8.4 (L)Comment: Testing | 8.5 - 10.2 | EXTERNAL | | | | performed at [facility];[address] | mg/dL | LAB | | | | [address];[place] | | | | | | [address] | | | | + + + + + -+ | Protein, | 6.6Comment: Testing | 6.3 - 8.2 g/dL | EXTERNAL | | | Total | performed at [facility];[address] | | LAB | | | | [address];[place] | | | | | | [address] | | | | + + + + + -+ | Albumin | 3.6Comment: QA FLAGS | 3.3 - 4.8 g/dL | EXTERNAL | | | | AND/OR RANGES MODIFIED | | LAB | | | | BY DEMOGRAPHIC UPDATE ON | | | | | | 08/27 AT 1945Testing | | | | | | performed at [facility];[address] | | | | | | [address];[place] | | | | | | [address] | | | | + + + + + -+ | Globulin | 3.0Comment: Testing | 1.3 - 4.9 g/dL | EXTERNAL | | | | performed at [facility];[address] | | LAB | | | | [address];[place] | | | | | | [address] | | | | + + + + + -+ | A/G Ratio | 1.2Comment: Testing | 1.0 - 2.4 | EXTERNAL | | | | performed at [facility];[address] | | LAB | | | | [address];[place] | | | | | | [address] | | | | + + + + + -+ | Bilirubin | 0.6Comment: Testing | 0.1 - 1.5 mg/dL | EXTERNAL | | | Total | performed at [facility];[address] | | LAB | | | | [address];[place] | | | | | | [address] | | | | + + + + + -+ | ALP, | 89Comment: Testing | 35 - 115 U/L | EXTERNAL | | | External | performed at [facility];[address] | | LAB | | | | [address];[place] | | | | | | [address] | | | | + + + + + -+ | AST | 26Comment: Testing | 10 - 45 U/L | EXTERNAL | | | | performed at [facility];[address] | | LAB | | | | [address];[place] | | | | | | [address] | | | | + + + + + -+ | ALT | 33Comment: Testing | 10 - 65 U/L | EXTERNAL | | | | performed at [facility];[address] | | LAB | | | | [address];[place] | | | | | | [address] | | | | + + + + + -+ | Estimated | 47 (L)Comment: GFR <60: | mL/min/1.73m2 | EXTERNAL | | | GFR | CHRONIC KIDNEY DISEASE, | | LAB | | | | IF FOUND OVER A 3 MONTH | | | | | | PERIOD.GFR <15: KIDNEY | | | | | | FAILURE.FOR | | | | | | AMERICANS, MULTIPLY THE | | | | | | CALCULATED GFR BY | | | | | | 1.210.Testing performed | | | | | | at [facility];[address];[place] [address] | | | | + + + + + -+ | CK, Total | 49Comment: Testing | 30 - 240 U/L | EXTERNAL | | | | performed at [facility];[address] | | LAB | | | | [address];[place] | | | | | | [address] | | | | + + + + + -+ | INR | 1.0Comment: REFERENCE | | EXTERNAL | | | | RANGE:0.9 - 1.2 | | LAB | | | | NON-ANTICOAGULATED2.0 | | | | | | - 3.0 ALL OTHER | | | | | | THERAPEUTIC | | | | | | INDICATIONS2.5 - 3.5 | | | | | | MECHANICAL HEART VALVES, | | | | | | RECURRENT OR SYSTEMIC | | | | | | EMBOLISMTesting | | | | | | performed at [facility];[address] | | | | | [address];[place] | | | | | | [address] | | | | + + + + + -+ | aPTT, | 24Comment: Testing | 23 - 32 seconds | EXTERNAL | | | Patient | performed at [facility];[address] | | LAB | | | [address];[place] | | | | | | [address] | | | | + + + + + -+ | CK-MB | 1.6Comment: Testing | 0.5 - 3.6 ng/mL | EXTERNAL | | | | performed at [facility];[address] | | LAB | | | | [address];[place] | | | | | | [address] | | | | + + + + + -+ | CK-MB Index | 3.3Comment: CK INDEX | | EXTERNAL | | | | INTERPRETATION: | | LAB | | | | MMB ng/mL | | | | | | | | | | | |CK INDEX INTERPRETATION: | | | | | | MMB ng/mL | | | | | | | | | | + + + + + -+ + + | Specimen | + + | | + + + +---------+ + + | Performing | Address | City/State/Zipcode | Phone Number | | Organization | | | | + +---------+ + + | EXTERNAL LAB | | | | + +---------+ + + D-Dimer (08/27/2014 5:42 PM PDT) + + + + + + | Component | Value | Ref Range | Performed | Pathologist | | | | | At | Signature | + + + + + + | D-DIMER, | 0.77 (H)Comment: D Dimer | 0.19 - 0.50 | EXTERNAL | | | MANUAL | results less than 0.50 | mg/L FEU | LAB | | | | mg/L FEU may rule out | | | | | | DVT and PE. However, | | | | | | all laboratory results | | | | | | should be interpreted in | | | | | | the context of all | | | | | | available clinical, | | | | | | radiologic and | | | | | | laboratory | | | | | | information.Testing | | | | | | performed at [facility];[address] | | | | | | [facility];[place], [place] | | | | | | [address] | | | | + + + + + + + + | Specimen | + + | Blood specimen | | (specimen) | + + + +---------+ + + | Performing | Address | City/State/Zipcode | Phone Number | | Organization | | | | + +---------+ + + | EXTERNAL LAB | | | | + +---------+ + + C-Reactive Protein (08/27/2014 5:42 PM PDT) + + + + + + | Component | Value | Ref Range | Performed | Pathologist | | | | | At | Signature | + + + + + + | CRP | <0.3Comment: Testing | mg/dL | EXTERNAL | | | | performed at [facility];[address] | | LAB | | | | [address];[place] | | | | | | [address] | | | | + + + + + + + + | Specimen | + + | Blood specimen | | (specimen) | + + + +---------+ + + | Performing | Address | City/State/Zipcode | Phone Number | | Organization | | | | + +---------+ + + | EXTERNAL LAB | | | | + +---------+ + + TSH (08/27/2014 5:42 PM PDT) + + + + + + | Component | Value | Ref Range | Performed | Pathologist | | | | | At | Signature | + + + + + + | TSI | 0.87Comment: Testing | 0.45 - 5.10 | EXTERNAL | | | | performed at [facility];[address] | uIU/mL | LAB | | | | [address];[place], [place] | | | | | | [address] | | | | + + + + + + + + | Specimen | + + | Blood specimen | | (specimen) | + + + +---------+ + + | Performing | Address | City/State/Zipcode | Phone Number | | Organization | | | | + +---------+ + + | EXTERNAL LAB | | | | + +---------+ + + B Type Natriuretic Peptide (08/27/2014 5:42 PM PDT) + + + + + + | Component | Value | Ref Range | Performed | Pathologist | | | | | At | Signature | + + + + + + | BNP | 9.9Comment: Testing | 0 - 100 pg/mL | EXTERNAL | | | | performed at [facility] | | LAB | | | | [address];[place] | | | | | | [address] | | | | + + + + + + + + | Specimen | + + | Blood specimen | | (specimen) | + + + +---------+ + + | Performing | Address | City/State/Zipcode | Phone Number | | Organization | | | | + +---------+ + + | EXTERNAL LAB | | | | + +---------+ + + Magnesium (08/27/2014 5:42 PM PDT) + + + + + + | Component | Value | Ref Range | Performed | Pathologist | | | | | At | Signature | + + + + + + | Magnesium | 1.9Comment: Testing | 1.7 - 2.4 mg/dL | EXTERNAL | | | | performed at [facility];[address] | | LAB | | | | [facility];[place], [place] | | | | | | [address] | | | | + + + + + + + + | Specimen | + + | Blood specimen | | (specimen) | + + + +---------+ + + | Performing | Address | City/State/Zipcode | Phone Number | | Organization | | | | + +---------+ + + | EXTERNAL LAB | | | | + +---------+ + + Hemoglobin A1C (08/27/2014 5:42 PM PDT) + + + + + + | Component | Value | Ref Range | Performed | Pathologist | | | | | At | Signature | + + + + + + | Hemoglobin | 5.2Comment: The [place] | 4.0 - 6.0 % | EXTERNAL | | | A1c | Diabetes Association | | LAB | | | | considers a hemoglobin | | | | | | A1c result of <7.0% to | | | | | | be the goal of diabetic | | | | | | therapy. When results | | | | | | are consistently >8.0%, | | | | | | the ADA suggests | | | | | | reevaluation of the | | | | | | treatment regimen. The | | | | | | testing method used is | | | | | | certified traceable to | | | | | | the Diabetes Control and | | | | | | Complications Trial | | | | | | reference method.Testing | | | | | | performed at [facility], [address] | | | | | [address] [facility], | | | | | | [place] [address] | | | | + + + + + + | Glycohemogl | 103Comment: The ADA | mg/dL | EXTERNAL | | | obin | considers an eAG result | | LAB | | | (GHb),Total | of LT 154 mg/dL to be | | | | | | the goal of diabetic | | | | | | therapy. Estimated | | | | | | Average Glucose | | | | | | calculated from | | | | | | hemoglobin A1c by use of | | | | | | the ADA recommended | | | | | | formula.Testing | | | | | | performed at [facility], [address] | | | | | | [facility], | | | | | | [place] [address] | | | | + + + + + + + + | Specimen | + + | Blood specimen | | (specimen) | + + + +---------+ + + | Performing | Address | City/State/Zipcode | Phone Number | | Organization | | | | + +---------+ + + | EXTERNAL LAB | | | | + +---------+ + + Ethanol (08/27/2014 5:42 PM PDT) + + + + + + | Component | Value | Ref Range | Performed | Pathologist | | | | | At | Signature | + + + + + + | Ethyl | <10Comment: Testing | mg/dL | EXTERNAL | | | Alcohol | performed at [facility];88 | | LAB | | | | [address];[place] | | | | | | [address] | | | | + + + + + + + + | Specimen | + + | | + + + +---------+ + + | Performing | Address | City/State/Zipcode | Phone Number | | Organization | | | | + +---------+ + + | EXTERNAL LAB | | | | + +---------+ + + POC CG 4, ISTAT Arterial (08/27/2014 5:12 PM PDT) + + + + + + | Component | Value | Ref Range | Performed | Pathologist | | | | | At | Signature | + + + + + + | PH ART | 7.324 (L)Comment: | 7.350 - 7.450 | EXTERNAL | | | | Testing performed at | | LAB | | | | [facility];[address] | | [address];[place] [address] | | | | + + + + + + | PCO2 ART | 36Comment: Testing | 35 - 45 mmHg | EXTERNAL | | | | performed at [facility];[address] | | LAB | | | | [address];[place] | | | | | | [address] | | | | + + + + + + | PO2 ART | 74 (L)Comment: Testing | 80 - 105 mmHg | EXTERNAL | | | | performed at [facility];[address] | | LAB | | | [address];[place] | | | | | | [address] | | | | + + + + + + | Lactate, | 4.4 (H)Comment: Testing | 0.36 - 1.25 | EXTERNAL | | | Arterial | performed at [facility];[address] | mmol/L | LAB | | | | [address];[place] | | | | | | [address] | | | | + + + + + + | HCO3 ART | 19 (L)Comment: Testing | 22 - 26 mmol/L | EXTERNAL | | | | performed at [facility];[address] | | LAB | | | | [address];[place] | | | | | | [address] | | | | + + + + + + | POC | 20 (L)Comment: Testing | 23 - 27 mEq/L | EXTERNAL | | | APPEARANCE | performed at [facility];[address] | | LAB | | | [address] | [address];[place] | | | | | | [address] | | | | + + + + + + | Base | 7 (H)Comment: Testing | 0.0 - 2.0 | EXTERNAL | | | deficit | performed at [facility];[address] | mmol/L | LAB | | | | [address];[place] | | | | | | [address] | | | | + + + + + + | O2 SAT ART | 94 (L)Comment: Testing | 95 - 98 % | EXTERNAL | | | | performed at [facility];[address] | | LAB | | | | [address];[place] | | | | | | [address] | | | | + + + + + + | FiO2, POC | 40Comment: Testing | % | EXTERNAL | | | | performed at [facility];[address] | | LAB | | | | [address];[place] | | | | | | [address] | | | | + + + + + + | Comment, | Tidal Volume = | | EXTERNAL | | | POC | 400Comment: Peep = 8Resp | | LAB | | | | Rate = 14Testing | | | | | | performed at [facility];[address] | | | | | | [address];[place] | | | | | | [address] | | | | + + + + + + + + | Specimen | + + | | + + + +---------+ + + | Performing | Address | City/State/Zipcode | Phone Number | | Organization | | | | + +---------+ + + | EXTERNAL LAB | | | | + +---------+ + + XR Chest 1 Vw (08/27/2014 5:06 PM PDT) + + | Specimen | + + | | + + + + + | Impressions | Performed At | + + + | 1. Hyperinflated supine trauma film, with some asymmetric | | | probable atelectasis in the left lung No evidence of mass effect | | | upon or enlargement of the mediastinum 2. Endotracheal tube in | | | radiographically appropriate position. | | + + + + + + | Narrative | Performed At | + + + | HISTORY: trauma. Demographics unknown TECHNIQUE: 1. 1 view | | | radiographic examination of the chest, computer enhanced technique | | | Prior study for review : None FINDINGS: Endotracheal tube is | | | superimposed over the midline airway, about 5 cm above the franklin | | | No mass effect or enlargement of the mediastinum. Aorta cartridge | | | seems normal. Lungs are somewhat hypoinflated with some asymmetric | | | reticular infiltrate or atelectasis in the left lung, atelectasis on | | | this supine examination may be confounding. There is no large | | | effusion. Film is somewhat lordotic, but no proven pneumothorax. | | | No dense pulmonary infiltrate. Surveillance examination of the | | | skeleton reveals degenerative changes. No proven displaced lesion. | | | There are clips in the gallbladder fossa | | + + + + + | Procedure Note | + + | Eliazar Falk Conversion - 06/11/2019 5:29 PM PDT HISTORY: trauma. Demographics unknown | | TECHNIQUE: 1. 1 view radiographic examination of the chest, computer enhanced | | techniquePrior study for review : None FINDINGS: Endotracheal tube is superimposed over | | the midline airway, about 5 cm above the franklin No mass effect or enlargement of the | | mediastinum. Aorta cartridge seems normal. Lungs are somewhat hypoinflated with some | | asymmetric reticular infiltrate or atelectasis in the left lung, atelectasis on this | | supine examination may be confounding. There is no large effusion. Film is somewhat | | lordotic, but no proven pneumothorax. No dense pulmonary infiltrate. Surveillance | | examination of the skeleton reveals degenerative changes. No proven displaced lesion. | | There are clips in the gallbladder fossa IMPRESSION: 1. Hyperinflated supine trauma | | film, with some asymmetric probable atelectasis in the left lung No evidence of mass | | effect upon or enlargement of the mediastinum 2. Endotracheal tube in radiographically | | appropriate position. | | PM | | | |Film is somewhat lordotic, but no proven pneumothorax. No dense pulmonary infiltrate. | | | |Surveillance examination of the skeleton reveals degenerative changes. No proven displaced lesion. There are clips in the gallbladder fossa | | | |IMPRESSION: | | | |1. Hyperinflated supine trauma film, with some asymmetric probable atelectasis in the left lung | | | |No evidence of mass effect upon or enlargement of the mediastinum | | | |2. Endotracheal tube in radiographically appropriate position. | | | | | + + documented in this encounter Visit Diagnoses + + | Diagnosis | + + | Syncope and collapse | + + | D-dimer, elevated Abnormal coagulation profile | + + | GERD (gastroesophageal reflux disease) Esophageal reflux | + + | Lactate blood increase Other nonspecific abnormal serum enzyme levels | + + | Left flank pain Abdominal pain, unspecified site | + + | Pyelonephritis, acute Acute pyelonephritis without lesion of renal medullary necrosis | + + | Rash, drug Dermatitis due to drugs and medicines taken internally | + + | Epigastric abdominal pain Abdominal pain, epigastric | + + | Hypokalemia Hypopotassemia | + + | Seizure (HCC) Other convulsions | + + | Acute respiratory failure (HCC) Acute respiratory failure | + + | Renal insufficiency Unspecified disorder of kidney and ureter | + + | Elevated d-dimer Abnormal coagulation profile | + + | Diabetes mellitus, type 2 (HCC) Type II or unspecified type diabetes mellitus without | | mention of complication, not stated as uncontrolled | + + | Hypertension Unspecified essential hypertension | + + | Hypothyroid Unspecified hypothyroidism | + + | ARF (acute renal failure) (HCC) Acute kidney failure, unspecified | + + documented in this encounter
--- OUTSIDE RECORDS SUMMARY | ~2019-09-12 | XMS | Encounter Summary ---
Demographics + + + | Address | [address] | | | [place] [address] | + + + | Home Phone [...] Team Providers + +------+ + | Care Autocad Draftsman Name | Role | Phone | + +------+ + | Yair Gleason MD | PCP | | + +------+ + Reason for Visit +---------+ + | Reason | Comments | +---------+ + | Testing | EEG | +---------+ + Encounter Details +--------+ + + + + | Date | Type | Department | Care Team | Description | +--------+ + + + + | 05/13/ | Telephone | [facility] | Dari Hansen RN | Testing (EEG) | | 2019 | | [facility] | | | | | | CLINIC [address] | | | | | | [address] [place], | | | | | | [place] [address] | | | | | | [phone] | | | +--------+ + + + [...] | | | | | | [place] [address] | | | | | | [phone] | | | | | | | | +--------+---------+ + + + | 05/08/ | Office | Neurology | Garth Vinson MD | | | 2019 | Visit | | [address] | | | | | | [place] | | | | | | [id number] | | | | | | | | +--------+---------+ + + + documented as of this encounter Visit Diagnoses Not on filedocumented in this encounter"
--- OUTSIDE RECORDS SUMMARY | ~2019-09-12 | XMS | Encounter Summary ---
Demographics + + + | Address | [address] | | | [place] [address] | + + + | Home Phone | | + + + | Preferred Language | Unknown | + + + | Marital Status | | + + + | Episcopalian Affiliation | 1077 | + + + [...] Team Providers + +------+ + | Care Architectural Design Professor Name | Role | Phone | + [...] [place] | | | | | [address] [facility], | [address] | | | | | [place] [address] | | | | | | [phone] | | | +--------+ + + + [...] | | | | | | [place] [address] | | | | | | [phone] | | | | | | | | +--------+---------+ + + + | 05/08/ | Office | Neurology | Garth Vinson MD | | | 2019 | Visit | | [address] | | | | | | [place], [place] | | | | | | [address] | | | | | | | | +--------+---------+ + + + documented as of this encounter Visit Diagnoses Not on filedocumented in this encounter"
--- OUTSIDE RECORDS SUMMARY | ~2019-09-12 | XMS | Encounter Summary ---
Demographics + + + | Address | [address] | | | [place] [address] | + + + | Home Phone | | + + + | Preferred Language | Unknown | + + + | Marital Status | | + + + | Confucianist Affiliation | 1077 | + + + | Race | Unknown | + + + | Ethnic Group | Unknown | + + + Author + + + | Author | [facility] | | | and [place] | + + + | Organization | [facility] | | [...] Team Providers + +------+ + | Care Crate Icer Name | Role | Phone | + [...] [place] | | | | | [address] [place], | [address] | | | | | [place] [address] | | | | | | [phone] | | | +--------+ + + + [...] | | | | | | [place] [address] | | | | | | [phone] | | | | | | | | +--------+---------+ + + + | 05/08/ | Office | Neurology | Garth Vinson MD | | | 2019 | Visit | | [address] | | | | | | [place] | | | | | | [address] | | | | | | | | +--------+---------+ + + + documented as of this encounter Visit Diagnoses Not on filedocumented in this encounter"
--- OUTSIDE RECORDS SUMMARY | ~2019-09-12 | XMS | Encounter Summary ---
Demographics + + + | Address | [address] | | | [place] [address] | + + + | Home Phone | | + + + | Preferred Language | Unknown | + + + | Marital Status | | + + + | Quaker Affiliation | 1077 | + + + | Race | Unknown | + + + | Ethnic Group | Unknown | + + + Author + + + | Author | [facility] | | | and [place] | + + + | Organization | [facility] | | | and [...] Team Providers + +------+ + | Care Target Protection Specialist Name | Role | Phone | [...] Description | +--------+--------+ + + + | 11/29/ | Refill | [facility] | Garth Vinson MD | Medication Refill | | 2017 | | [facility] | [address] | | | | | CLINIC [address] | [place] | | | | | [address] [place], | [address] | | | | | [place] [address] | | | | | | [phone] | | | +--------+--------+ + + + [...] | | | | | | [address] [facility], | | | | | | [place] [address] | | | | | | [phone] | | | | | | | | +--------+---------+ + + + | 05/08/ | Office | Neurology | Garth Vinson MD | | | 2019 | Visit | | [address] | | | | | | [place] | | | | | | [address] | | | | | | | [...]
--- OUTSIDE RECORDS SUMMARY | ~2019-09-12 | XMS | Encounter Summary ---
Demographics + + + | Address | [address] | | | [place] [address] | + + + | Home Phone [...] Team Providers + +------+ + | Care Blasting Miner Name | Role | Phone | + +------+ + PCP | Unavailable | + +------+ + Encounter Details +--------+ + + + + | Date | Type | Department | Care Team | Description | +--------+ + + + + | 03/25/ | Hospital | [facility] | Jay Vinson, | | | 2017 | Encounter | [facility] [address] | [address], | | | | | [address] | [place], [place] | | | | | [place], [place] | [address] | | | | | [address] | [phone] | | | | | [phone] | | | +--------+ + + + [...] | | | | | | [place] [address] | | | | | | [phone] | | | | | | | | +--------+---------+ + + + | 05/08/ | Office | Neurology | Garth Vinson MD | | | 2019 | Visit | | [address] | | | | | | [place] | | | | | | [address] | | | | | | | | +--------+---------+ + + + documented as of this encounter Procedures + +--------+ + + + | Procedure Name | Priori | Date/Time | Associated Diagnosis | Comments | | | ty | | | | + +--------+ + + + | VAS CAROTID DUPLEX | Routin | 03/25/2017 | | Results for this | | BILATERAL | e | 1:29 PM | | procedure are in the | | | | PDT | | results section. | + +--------+ + + + | MRI BRAIN WO | Routin | 03/25/2017 | | Results for this | | CONTRAST | e | 1:29 PM | | procedure are in the | | | | PDT | | results section. | + +--------+ + + + documented in this encounter Results VAS Carotid Duplex Bilateral (03/25/2017 1:29 PM PDT) + + | Specimen | + + | | + + + + + | Narrative | Performed At | + + + | EXAMINATION: ECHO CAROTID DUPLEX NATHALY HISTORY: TIA. | | | COMPARISON STUDY: None FINDINGS: High resolution real time | | | sonography combined with pulsed and color doppler flow analysis has | | | been obtained from both extracranial carotid systems. No | | | significant elevated velocity of either the right or left extracranial | | | system is demonstrated. Flow direction in both vertebral arteries | | | is normal.Mild atherosclerotic plaque is noted at the right carotid | | | bulb.. IMPRESSION: No significant stenosis of either the right or | | | left extracranial system has been demonstrated based on NASCET | | | criteria.Mild atherosclerotic plaque is present at the right carotid | | | bulb. JOB #: [id number] Digitally Released by: Conrado Benz | | | Read By: CONRADO BENZ MD Date: 03/25/2017 16:27 | | + + + + + | Procedure Note | + + | Dileep, Rad Results In - 11/06/2017 12:38 PM PST EXAMINATION: | | ECHO CAROTID DUPLEX NATHALY | | | | HISTORY: | | TIA. | | | | COMPARISON STUDY: | | None | | | | FINDINGS: | | High resolution real time sonography combined with pulsed and color doppler | | flow analysis has been obtained from both extracranial carotid systems. No | | significant elevated velocity of either the right or left extracranial system | | is demonstrated. Flow direction in both vertebral arteries is normal.Mild | | atherosclerotic plaque is noted at the right carotid bulb.. | | | | IMPRESSION: | | No significant stenosis of either the right or left extracranial system has | | been demonstrated based on NASCET criteria.Mild atherosclerotic plaque is | | present at the right carotid bulb. | | | | | | JOB #: [id number] | | Digitally Released by: Conrado Benz | | | | | | Read By: CONRADO BENZ MD | | Date: 03/25/2017 16:27 | | | + + MRI Brain wo Contrast (03/25/2017 1:29 PM PDT) + + | Specimen | + + | | + + + + + | Narrative | Performed At | + + + | EXAMINATION: MRI BRAIN WO HISTORY: TIA with dysphagia, h/o | | | diabetes and hypertension. COMPARISON STUDY: MRI brain | | | 02/06/2015 TECHNIQUE: Multiplanar multi sequence MRI of the brain | | | is performed without contrast. FINDINGS: Diffusion-weighted | | | images demonstrate no focal abnormal hyperintense signal. The | | | lateral ventricles are prominent without significant interval change. | | | The sulci are prominent. Moderate to advanced periventricular | | | and subcortical white matter hyper intensity is present on FLAIR and | | | T2 series images. Normal flow voids are present at the cavernous | | | internal carotid arteries and basilar artery. The paranasal sinuses | | | demonstrate mucosal thickening at the ethmoid air cells. The mastoid | | | air cells and middle ears demonstrate minimal fluid intensity at the | | | right mastoid process. IMPRESSION: 1. No acute finding. 2. | | | Moderate central volume loss. 3. Moderate prominence of the lateral | | | and 3rd ventricles. This finding is unchanged. The finding may | | | relate to central volume loss. Element of hydrocephalus could | | | result and/or contribute to the finding. 4. Moderate to advanced | | | white matter changes nonspecific but most typically associated with | | | microvascular disease. 5. Mild paranasal sinus disease. JOB #: | | | [id number] Digitally Released by: Conrado Benz Read By: CONRADO | | | Saji BENZ MD Date: 03/25/2017 16:20 | | + + + + + | Procedure Note | + + | Dileep, Rad Results In - 11/06/2017 12:38 PM PST EXAMINATION: | | MRI BRAIN WO | | | | HISTORY: | | TIA with dysphagia, h/o diabetes and hypertension. | | | | COMPARISON STUDY: | | | | MRI brain 02/06/2015 | | | | TECHNIQUE: | | Multiplanar multi sequence MRI of the brain is performed without contrast. | | | | FINDINGS: | | Diffusion-weighted images demonstrate no focal abnormal hyperintense signal. | | | | The lateral ventricles are prominent without significant interval change. The | | sulci are prominent. | | | | Moderate to advanced periventricular and subcortical white matter hyper | | intensity is present on FLAIR and T2 series images. Normal flow voids are | | present at the cavernous internal carotid arteries and basilar artery. The | | paranasal sinuses demonstrate mucosal thickening at the ethmoid air cells. | | The mastoid air cells and middle ears demonstrate minimal fluid intensity at | | the right mastoid process. | | | | IMPRESSION: | | 1. No acute finding. | | 2. Moderate central volume loss. | | 3. Moderate prominence of the lateral and 3rd ventricles. This finding is | | unchanged. The finding may relate to central volume loss. Element of | | hydrocephalus could result and/or contribute to the finding. | | 4. Moderate to advanced white matter changes nonspecific but most typically | | associated with microvascular disease. | | 5. Mild paranasal sinus disease. | | | | | | JOB #: [id number] | | Digitally Released by: Conrado Benz | | | | | | Read By: CONRADO BENZ MD | | Date: 03/25/2017 16:20 | | | + + documented in this encounter Visit Diagnoses Not on filedocumented in this encounter"
--- OUTSIDE RECORDS SUMMARY | ~2019-09-12 | XMS | Encounter Summary ---
Demographics + + + | Address | [address] | | | [place] [address] | + + + | Home Phone [...] Team Providers + +------+ + | Care Suspender Cutter Name | Role | Phone | + [...] | | | | [place], [place] | [address] | | | | | [address] | [phone] | | | | | [phone] | | | +--------+ + + + [...] | | | | | | [place] [address] | | | | | | [phone] | | | | | | | | +--------+---------+ + + + | 05/08/ | Office | Neurology | Garth Vinson MD | | | 2019 | Visit | | [address] | | | | | | [place] | | | | | | [address] | | | | | | | [...] carotid | | | bulb. JOB #: [id number] Digitally Released by: Conrado Benz | | [...] | | | | | JOB #: [id number] | | Digitally Released by: Conrado Benz [...] sinus disease. JOB #: | | | [id number] Digitally Released by: Conrado Benz Read By: [...] | | | | | JOB #: [id number] | | Digitally Released by: Conrado Benz | | | | | | Read By: CONRADO BENZ MD | | Date: 03/25/2017 16:20 | | | + + documented in this encounter Visit Diagnoses Not on filedocumented in this encounter"
--- OUTSIDE RECORDS SUMMARY | ~2019-09-12 | XMS | Encounter Summary ---
Demographics + + + | Address | [address] | | | [place] [address] | + + + | Home Phone [...] Team Providers + +------+ + | Care Hspt Tutor Name | Role | Phone | + [...] [address] | | | | | [place] [address] | | | | | | [phone] | | | +--------+ + + + [...] | | | | | | [place] [address] | | | | | | [phone] | | | | | | | [...]
--- OUTSIDE RECORDS SUMMARY | ~2019-09-12 | XMS | Encounter Summary ---
Demographics + + + | Address | [address] | | | [place] [address] | + + + | Home Phone | | + + + | Preferred Language | Unknown | + + + | Marital Status | | + + + | Sikh Affiliation | 1077 | + + + | Race | Unknown | + + + | Ethnic Group | Unknown | + + + Author + + + | Author | [facility] | | | and [place] | + + + | Organization | [facility] | | | [...] Team Providers + +------+ + | Care Compensation Business Partner Name | Role | Phone | + [...] [place] | | | | | [address] [facility], | [address] | | | | | [place] [address] | | | | | | [phone] | | | +--------+ + + + [...] | | | | | | [place] [address] | | | | | | [phone] | | | | | | | | +--------+---------+ + + + | 05/08/ | Office | Neurology | Garth Vinson MD | | | 2019 | Visit | | [address] | | | | | | [place] | | | | | | [address] | | | | | | | | +--------+---------+ + + + documented as of this encounter Visit Diagnoses Not on filedocumented in this encounter"
--- OUTSIDE RECORDS SUMMARY | ~2019-09-12 | XMS | Encounter Summary ---
Demographics + + + | Address | [address] | | | [place] [address] | + + + | Home Phone [...] Team Providers + +------+ + | Care Dandy Tender Name | Role | Phone | + [...] | | | | [place], [place] | [address] | | | | | [address] | [phone] | | | | | [phone] | | | +--------+ + + + [...] | | | | | | [place] [address] | | | | | | [phone] | | | | | | | | +--------+---------+ + + + | 05/08/ | Office | Neurology | Garth Vinson MD | | 2019 | Visit | | [address] | | | | | | [place] | | | | | | [address] | | | | | | | [...]
--- OUTSIDE RECORDS SUMMARY | ~2019-09-12 | XMS | Encounter Summary ---
Demographics + + + | Address | [address] | | | [place] [address] | + + + | Home Phone | | + + + | Preferred Language | Unknown | + + + | Marital Status | | + + + | Muslim Affiliation | 1077 | + + + [...] Team Providers + +------+ + | Care Speedboat Driver Name | Role | Phone | [...] [address] | | | | | [place] [address] | | | | | | [phone] | | | +--------+ + + + [...] | | | | | | [address] [facility] [place], | | | | | | [place] [address] | | | | | | [phone] | | | | | | | | +--------+---------+ + + + | 05/08/ | Office | Neurology | Garth Vinson MD | | | 2020 | Visit | | [address] | | | | | | [place] | | | | | | [address] | | | | | | | [...]
--- OUTSIDE RECORDS SUMMARY | ~2019-09-12 | XMS | Encounter Summary ---
Demographics + + + | Address | [address] [facility] | | | [place] [address] | + + + | Home Phone | | + + + | Preferred Language | Unknown | + + + | Marital Status | | + + + | Scientology Affiliation | 1077 | + + + | Race | Unknown | + + + | Ethnic Group | Unknown | + + + Author + + + | Author | [facility] | | | and [place] | + + + | Organization | [facility] | | [...] Team Providers + +------+ + | Care Egg Separator Name | Role | Phone | + [...] [address] [place] | [place] | right knee (Primary | | | | [place] | [address] | Dx) | | | | [address] | | | | | | [phone] | | | +--------+---------+ + + + [...] on managing symptoms. Tr eatment may include: Zliz-cza-rnpmrus or prescription medicines taken by mouth to [...] get worse New symptoms Date Last Reviewed: 01/04/201619993930-9139 [employer]. [address] [place] [address], [place] [address]. All righ ts reserved. This information is not intended as a substitute for professional medical care. Always follow your healthcare professional's instructions. documented in this encounter Progress Notes Erik Hoffman MD - 01/22/2018 3:00 PM PDTFormatting of this note might be different f rom the original. [facility] Patient Name: Cristina Buckner | Age: 77 y.o. | : 1940 | [address] | Author: Erik Hoffman MD | Date [...] servic es at a facility [facility] than [facility]. Time out to verify correct patient, [...] | | | | | | [place] [address] | | | | | | [phone] | | | | | | | [...]
--- OUTSIDE RECORDS SUMMARY | ~2019-09-12 | XMS | Encounter Summary ---
Demographics + + + | Address | [address] | | | [place] [address] | + + + | Home Phone | | + + + | Preferred Language | Unknown | + + + | Marital Status | | + + + | Quaker Affiliation | 1077 | + + + | Race | Unknown | + + + | Ethnic Group | Unknown | + + + Author + + + | Author | [facility] | | | and [place] | + + + | Organization | [facility] | | | and [...] Team Providers + +------+ + | Care Shank Breaker Name | Role | Phone | + [...] | | | | [place] | [address] | | | | | [address] | [phone] | | | | | [phone] | | | +--------+ + + + [...] | | | | | | [place] [address] | | | | | | [phone] | | | | | | | | +--------+---------+ + + + | 05/08/ | Office | Neurology | Garth Vinson MD | | | 2019 | Visit | | [address] | | | | | | [place], [place] | | | | | | [address] | | | | | | | | +--------+---------+ + + + documented as of this encounter Visit Diagnoses Not on filedocumented in this encounter"
--- OUTSIDE RECORDS SUMMARY | ~2019-09-12 | XMS | Encounter Summary ---
Demographics + + + | Address | [address] | | | [place] [address] | + + + | Home Phone | | + + + | Preferred Language | Unknown | + + + | Marital Status | | + + + | Jew Affiliation | 1077 | + + + | Race | Unknown | + + + | Ethnic Group | Unknown | + + + Author + + + | Author | [facility] | | | and [place] | + + + | Organization | [facility] | | [...] Team Providers + +------+ + | Care Co Founder And Director Name | Role | Phone | [...] | | | [address] | [place] | | | | | [place] | [address] | | | | | [address] | | | | | | [phone] | | | +--------+ + + + [...] | | | | | | [place] [address] | | | | | | [phone] | | | | | | | | +--------+---------+ + + + | 07/13/ | Office | Neurology | Garth Vinson MD | | | 2019 | Visit | | [address] | | | | | | [place] | | | | | | [id number] | | | | | | | | +--------+---------+ + + + documented as of this encounter Visit Diagnoses Not on filedocumented in this encounter"
--- OUTSIDE RECORDS SUMMARY | ~2019-09-12 | XMS | Encounter Summary ---
Demographics + + + | Address | [address] [facility] [facility] | | | [place] [address] | + + + | Home Phone [...] Team Providers + +------+ + | Care Dramatic Coach Name | Role | Phone | + +------+ + PCP | Unavailable | + +------+ + Encounter Details +--------+ + + + + | Date | Type | Department | Care Team | Description | +--------+ + + + + | 01/05/ | Hospital | [facility] | Garth Prince MD | | | 2015 | Encounter | HOSPITAL RESPIRATORY | [address] | | | | | THERAPY [address] | [place] | | | | | [place] | [address] | | | | | [address] | | | | | | [phone] | | | +--------+ + + + [...] documented as of this encounter Progress Notes Garth Prince MD - 10/31/2014 9:44 AM PST 24-HOUR AMBULATORY ELECTROENCEPHALOGRAM Date of Service: 10/31/2014 PRIMARY CARE PHYSICIAN: Yair Gleason MD INTRODUCTION: This is a digital 24-hour ambulatory EEG recording of a 74-year-old female with a 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 This study was performed to ascer tain the nature of the above. The study utilized 20 channels of EEG derived from 21 scalp electrodes placed over the fron savita, temporal, parietal, occipital and central regions. The International 10-20 system of e lectrode placement was used. The recording was started at 10:45 AM on 10/31/2014 and ended at 10:56 AM on 11/01/2014 for a total duration of approximately 24 hours. RESULTS: The study was reviewed using the Tagito digital system. During the wakeful portion of the recording normal background pattern consisting of 8 to 10 Hz consisting most ly of Alpha rhythm was noted. The patient went to bed at approximately 11:50 PM and woke up at 7 AM on 11/01/2014. ABNORMAL POTENTIALS: There were occasional bursts of spike slow wave pattern noted in the bilateral parietotempo ral region with epileptiform discharges with no recurrence during sleep. PUSH-BUTTON VOICE ENTRY EVENTS: There were none. IMPRESSION: Abnormal EEG. There were electrographic evidence of seizure pattern during the 2 4 hour duration of the study. Thank you for the opportunity to participate in the care of your patient. [facility] Signed and Approved by: GARTH PRINCE MD 11/08/2014 19:49:00 documented in this enc ounter Plan of Treatment +--------+---------+ + + + | Date | Type | Specialty | Care Team | Description | +--------+---------+ + + + | 11/11/ | Office | Neurology | Kathie, | | | 2019 | Visit | | [address] | | | | | [address] [place] | | | | | | [place] [address] | | | | | | [phone] | | | | | | | | +--------+---------+ + + + | 05/08/ | Office | Neurology | Garth Prince MD | | | 2019 | Visit | | [address] | | | | | | [place] | | | | | | [address] | | | | | | | | +--------+---------+ + + + documented as of this encounter Visit Diagnoses Not on filedocumented in this encounter"
--- OUTSIDE RECORDS SUMMARY | ~2019-09-12 | XMS | Encounter Summary ---
Demographics + + + | Address | [address] | | | [place] [address] | + + + | Home Phone [...] Providers + +------+ + | Care Senior Escrow Officer Name | Role | Phone | [...] | | | [place], [place] | [address] | | | | | [address] | [phone] | | | | | [phone] | | | +--------+ + + + [...] | | | | | | [place] [address] | | | | | | [phone] | | | | | | | | +--------+---------+ + + + | 05/08/ | Office | Neurology | Garth Vinson MD | | | 2019 | Visit | | [address] | | | | | | [place] | | | | | | [address] | | | | | | | [...] are | | | identified. Job No.: [id number] Read By: DEL | | | Saji [...] finding are | | identified. Job No.: [id number] Read By: DEL WALKER MD Released By: [...] | | | | | |Job No.: [id number] | | | |Read By: DEL WALKER MD | | | |Released By: DEL WALKER MD | |Date: 03/20/2016 20:18 | | | | | + + documented in this encounter Visit Diagnoses Not on filedocumented in this encounter"
--- OUTSIDE RECORDS SUMMARY | ~2019-09-12 | XMS | Encounter Summary ---
Demographics + + + | Address | [address] | | | [place] [address] | + + + | Home Phone [...] Team Providers + +------+ + | Care Special Equipment Technician Name | Role | Phone | [...] [address] | | | | | [place] [address] | | | | | | [phone] | | | +--------+--------+ + + + [...] | | | | | | [place] [address] | | | | | | [phone] | | | | | | | | +--------+---------+ + + + | 05/08/ | Office | Neurology | Garth Vinson MD | | | 2019 | Visit | | [address] | | | | | | [place] | | | | | | [address] | | | | | | | | +--------+---------+ + + + documented as of this encounter Visit Diagnoses Not on filedocumented in this encounter"
--- OUTSIDE RECORDS SUMMARY | ~2019-09-12 | XMS | Encounter Summary ---
Demographics + + + | Address | [address] [facility] | | | [place] [address] | + + + | Home Phone | | + + + | Preferred Language | Unknown | + + + | Marital Status | | + + + | Zoroastrian Affiliation | 1077 | + + + [...] Team Providers + +------+ + | Care Transportation Maintenance Operator Name | Role | Phone | + +------+ + PCP | Unavailable | + +------+ + Encounter Details +--------+ + + + + | Date | Type | Department | Care Team | Description | +--------+ + + + + | 04/16/ | Hospital | [facility] | Boris Medeiros | | | 2012 | Encounter | HOSPITAL OBSTETRICS | MD [address] | | | | | [address] [place] | [address] | | | | | [place] | [place] | | | | | [address] | [address] | | | | | [phone] | [phone] | | | | | | | [...] | | | | [address] [place], | | | | | | [place] [address] | | | | | | [phone] | | | | | | | [...]
--- OUTSIDE RECORDS SUMMARY | ~2019-09-12 | XMS | Encounter Summary ---
Demographics + + + | Address | [address] [facility] | | | [place] [address] | + + + | Home Phone [...] Team Providers + +------+ + | Care Quartz Miner Name | Role | Phone | + +------+ + | Yair Gleason MD | PCP | | + +------+ + Reason for Visit + + + | Reason | Comments | + + + | Seizures | | + + + Encounter Details [...] [address] | | | | | [place] [address] | | | | | | [phone] | | | +--------+ + + + [...] | | | | | | [place] [address] | | | | | | [phone] | | | | | | | | +--------+---------+ + + + | 05/08/ | Office | Neurology | Garth Vinson MD | | | 2020 | Visit | | [address] | | | | | | [place] | | | | | | [id number] | | | | | | | | +--------+---------+ + + + documented as of this encounter Visit Diagnoses Not on filedocumented in this encounter"
--- OUTSIDE RECORDS SUMMARY | ~2019-09-12 | XMS | Encounter Summary ---
Demographics + + + | Address | [address] [facility] [facility] [facility] | | | [place] [address] | + + + | Home Phone [...] Team Providers + +------+ + | Care Green Jobs Trainer Name | Role | Phone | + +------+ + PCP | Unavailable | + +------+ + Encounter Details +--------+ + + + + | Date | Type | Department | Care Team | Description | +--------+ + + + + | 11/28/ | Hospital | [facility], Levon C, DATA SPECIALIST | | | 2016 | Encounter | HOSPITAL XRAY [address] | [address] | | | | | [address] | [place], [place] | | | | | [place], [place] | [address] | | | | | [address] | [phone] | | | | | [phone] | | | +--------+ + + + [...] | | | | | | [place] [address] | | | | | | [phone] | | | | | | | | +--------+---------+ + + + | 05/08/ | Office | Neurology | Garth Vinson MD | | | 2019 | Visit | | [address] | | | | | | [place] | | | | | | [address] | | | | | | | [...] humeral head. | | | Job No.: [id number] Read By: DEL WALKER MD | | [...] | | the humeral head. Job No.: [id number] Read By: DEL WALKER MD Released | [...] | | | | | |Job No.: [id number] | | | |Read By: DEL WALKER MD | | | |Released By: DEL WALKER MD | |Date: 11/29/2015 10:58 | | | | | + + documented in this encounter Visit Diagnoses Not on filedocumented in this encounter"
--- OUTSIDE RECORDS SUMMARY | ~2019-09-12 | XMS | Encounter Summary ---
Demographics + + + | Address | [address] | | | [place] [address] | + + + | Home Phone | | + + + | Preferred Language | Unknown | + + + | Marital Status | | + + + | Mandaeism Affiliation | 1077 | + + + | Race | Unknown | + + + | Ethnic Group | Unknown | + + + Author + + + | Author | [facility] | | | and [place] | + + + | Organization | [facility] | | [...] Team Providers + +------+ + | Care Laundry Machine Operator Name | Role | Phone | + +------+ + PCP | Unavailable | + +------+ + Encounter Details +--------+ + + + + | Date | Type | Department | Care Team | Description | +--------+ + + + + | 09/24/ | Hospital | [facility] | Juan Pablo Singh, | | | 2016 | Encounter | HOSPITAL ORTHOPEDIC | DO [address] , | | | | | [address] | [place], [place] | | | | | [place], [place] | [address] | | | | | [address] | [phone] | | | | | [phone] | | | +--------+ + + + [...] | | | | | | [place] [address] | | | | | | [phone] | | | | | | | | +--------+---------+ + + + | 05/08/ | Office | Neurology | Garth Vinson MD | | | 2019 | Visit | | [address] | | | | | | [place] | | | | | | [address] | | | | | | | | +--------+---------+ + + + documented as of this encounter Visit Diagnoses Not on filedocumented in this encounter"
--- OUTSIDE RECORDS SUMMARY | ~2019-09-12 | XMS | Encounter Summary ---
Demographics + + + | Address | [address] | | | [place] [address] | + + + | Home Phone | | + + + | Preferred Language | Unknown | + + + | Marital Status | | + + + | Oriental Orthodox Affiliation | 1077 | + + [...] Team Providers + +------+ + | Care Outsole Molder Name | Role | Phone | + [...] | | | [place] | [address] | | | | | [address] | | | | | | [phone] | | | +--------+ + + + [...] RESULTS: The study was reviewed using the Motion Displays digital system. During the wakeful portion of [...] participate in the care of your patient. [facility] Signed and Approved by: GARTH PRINCE MD [...] | | | | | | [place] [address] | | | | | | [phone] | | | | | | | | +--------+---------+ + + + | 05/08/ | Office | Neurology | Garth Prince MD | | | 2019 | Visit | | [address] | | | | | | [place] | | | | | | [address] | | | | | | | | +--------+---------+ + + + documented as of this encounter Visit Diagnoses Not on filedocumented in this encounter"
--- OUTSIDE RECORDS SUMMARY | ~2019-09-12 | XMS | Encounter Summary ---
Demographics + + + | Address | [address] [facility] | | | [place] [address] | + + + | Home Phone [...] Team Providers + +------+ + | Care Estate Planning Director Name | Role | Phone | [...] | | | | DEPARTMENT [address] | [address] | | | | | [address] [place] | [phone] | | | | | [place] | | | | | | [address] | | | | | | [phone] | | | +--------+ + + + [...] | | | | | | [place] [address] | | | | | | [phone] | | | | | | | | +--------+---------+ + + + | 05/08/ | Office | Neurology | Garth Vinson MD | | 2019 | Visit | | [address] | | | | | | [place] | | | | | | [id number] | | | | | | | [...] D: | | | 06/29/2016 JOB #: [id number] Read By: KIM HOOKER MD | | [...] | process. No interval change. JOB #: [id number] Read By: KIM HOOKER | | Released By: KAY SIUate: 06/29/2016 21:38 | |HISTORY: | |Preop screening. [...] | | | | | |JOB #: [id number] | | | |Read By: KIM HOOKER MD | | | |Released By: KIM HOOKER MD | |Date: 06/29/2016 21:38 | | | | | + + documented in this encounter Visit Diagnoses Not on filedocumented in this encounter"
--- OUTSIDE RECORDS SUMMARY | ~2019-09-12 | XMS | Encounter Summary ---
Demographics + + + | Address | [address] [facility] | | | [place] [address] | + + + | Home Phone [...] Team Providers + +------+ + | Care Forest Ecologist Name | Role | Phone | + [...] | | | [place] | [address] | | | | | [address] | | | | | | [phone] | | | +--------+ + + + [...] | | | | | | [place] [address] | | | | | | [phone] | | | | | | | | +--------+---------+ + + + | 05/08/ | Office | Neurology | Garth Vinson MD | | | 2019 | Visit | | [address] | | | | | | [place], [place] | | | | | | [address] | | | | | | | | +--------+---------+ + + + documented as of this encounter Visit Diagnoses Not on filedocumented in this encounter"
--- OUTSIDE RECORDS SUMMARY | ~2019-09-12 | XMS | Encounter Summary ---
Demographics + + + | Address | [address] [facility] | | | [place] [address] | + + + | Home Phone | | + + + | Preferred Language | Unknown | + + + | Marital Status | | + + + | Nondenominational Affiliation | 1077 | + + + | Race | Unknown | + + + | Ethnic Group | Unknown | + + + Author + + + | Author | [facility] | | | and [place] | + + + | Organization | [facility] | | | [...] Team Providers + +------+ + | Care Patients Transporter Name | Role | Phone | + [...] [address] | | | | | [place] [address] | | | | | | [phone] | | | +--------+ + + + [...] | | | | | | [place] [address] | | | | | | [phone] | | | | | | | | +--------+---------+ + + + | 05/08/ | Office | Neurology | Garth Vinson MD | | | 2020 | Visit | | [address] | | | | | | [place] | | | | | | [id number] | | | | | | | | +--------+---------+ + + + documented as of this encounter Visit Diagnoses Not on filedocumented in this encounter"
--- OUTSIDE RECORDS SUMMARY | ~2019-09-12 | XMS | Encounter Summary ---
Demographics + + + | Address | [address] [facility] | | | [place] [address] | + + + | Home Phone | | + + + | Preferred Language | Unknown | + + + | Marital Status | | + + + | Rastafarian Affiliation | 1077 | + + + [...] Team Providers + +------+ + | Care Inbound Sales Advisor Name | Role | Phone | + [...] | | | | [place], [place] | [address] | | | | | [address] | [phone] | | | | | [phone] | | | +--------+ + + + [...] | | | | | | [place] [address] | | | | | | [phone] | | | | | | | | +--------+---------+ + + + | 05/08/ | Office | Neurology | Garth Vinson MD | | | 2019 | Visit | | [address] | | | | | | [place] | | | | | | [address] | | | | | | | [...]
--- OUTSIDE RECORDS SUMMARY | ~2019-09-12 | XMS | Encounter Summary ---
Demographics + + + | Address | [address] [facility] | | | [place] [address] | + + + | Home Phone [...] Providers + +------+ + | Care Supervisor Production Name | Role | Phone | + +------+ + PCP | Unavailable | + +------+ + Encounter Details +--------+ + + + + | Date | Type | Department | Care Team | Description | +--------+ + + + + | 03/17/ | Hospital | [facility] | Garth Vinson MD | | | 2011 | Encounter | HOSPITAL LABORATORY | [address] | | | | | [address] | [place], [place] | | | | | [place], [place] | [address] | | | | | [address] | | | | | | [phone] | | | +--------+ + + + [...] | | | | | | [place] [address] | | | | | | [phone] | | | | | | | | +--------+---------+ + + + | 05/08/ | Office | Neurology | Garth Vinson MD | | | 2019 | Visit | | [address] | | | | | | [place], [place] | | | | | | [address] | | | | | | | | +--------+---------+ + + + documented as of this encounter Visit Diagnoses Not on filedocumented in this encounter"
--- OUTSIDE RECORDS SUMMARY | ~2019-09-12 | XMS | Encounter Summary ---
Demographics + + + | Address | [address] [facility] | | | [place] [address] | + + + | Home Phone [...] Team Providers + +------+ + | Care Platform Mill Supervisor Name | Role | Phone | [...] | | | [place], [place] | [address] | | | | | [address] | [phone] | | | | | [phone] | | | +--------+ + + + [...] | | | | | | [place] [address] | | | | | | [phone] | | | | | | | | +--------+---------+ + + + | 05/08/ | Office | Neurology | Garth Vinson MD | | | 2019 | Visit | | [address] | | | | | | [place] | | | | | | [address] | | | | | | | | +--------+---------+ + + + documented as of this encounter Visit Diagnoses Not on filedocumented in this encounter"
--- OUTSIDE RECORDS SUMMARY | ~2019-09-12 | XMS | Encounter Summary ---
Demographics + + + | Address | [address] [facility] | | | [place] [address] | + + + | Home Phone [...] Phone | + + +---------+ + | Wliliam Buckner | ECON | Unknown | | + + +---------+ + | Yohannes Adorno | ECON | Unknown | | + + +---------+ + Care Team Providers + +------+ + | Care Primer Waterproofing Machine Operator Name | Role | Phone [...] Medication Refill | | 2017 | | [facility] | [address] | | | | | CLINIC [address] | [place] | | | | | DR [place], | [address] | | | | | [place] [address] | | | | | | [phone] | | | +--------+--------+ + + + [...] | | | | | [facility] | | | | | | [place] [address] | | | | | | [phone] | | | | | | | | +--------+---------+ + + + | 05/08/ | Office | Neurology | Garth Vinson MD | | | 2019 | Visit | | [address] | | | | | | [place] | | | | | | [address] | | | | | | | [...]
--- OUTSIDE RECORDS SUMMARY | ~2019-09-12 | XMS | Encounter Summary ---
Demographics + + + | Address | [address] [facility] | | | [place] [address] | + + + | Home Phone [...] Team Providers + +------+ + | Care Gas Welding Machine Operator Name | Role | Phone [...] | [address] [place] [place], | [address] | | | | | [place] [address] | | | | | | [phone] | | | +--------+ + + + [...] | | | | | | [place] [address] | | | | | | [phone] | | | | | | | | +--------+---------+ + + + | 05/08/ | Office | Neurology | Garth Vinson MD | | | 2019 | Visit | | [address] | | | | | | [place] | | | | | | [address] | | | | | | | | +--------+---------+ + + + documented as of this encounter Visit Diagnoses Not on filedocumented in this encounter"
--- OUTSIDE RECORDS SUMMARY | ~2019-09-12 | XMS | Encounter Summary ---
Demographics + + + | Address | [address] [facility] | | | [place] [address] | + + + | Home Phone [...] Team Providers + +------+ + | Care Can Pusher Name | Role | Phone | + [...] [place] | | | | | | [address] | | | | | | [phone] | | | +--------+ + + + [...] | | | | [address] [facility] [place], | | | | | | [place] [address] | | | | | | [phone] | | | | | | | | +--------+---------+ + + + | 05/08/ | Office | Neurology | Garth Vinson MD | | | 2020 | Visit | | [address] | | | | | | [place] | | | | | | [address] | | | | | | | | +--------+---------+ + + + documented as of this encounter Visit Diagnoses Not on filedocumented in this encounter"
--- OUTSIDE RECORDS SUMMARY | ~2019-09-12 | XMS | Encounter Summary ---
Demographics + + + | Address | [address] [facility] | | | [place] [address] | + + + | Home Phone [...] Team Providers + +------+ + | Care Arch Cushion Skiving Machine Operator Name | Role | Phone [...] | | | [place], [place] | [address] | | | | | [address] | [phone] | | | | | [phone] | | | +--------+ + + + [...] | | | | | | [place] [address] | | | | | | [phone] | | | | | | | | +--------+---------+ + + + | 05/08/ | Office | Neurology | Garth Vinson MD | | | 2019 | Visit | | [address] | | | | | | [place] | | | | | | [address] | | | | | | | [...] arthroplasty changes. JOB | | | #: [id number] Digitally Released by: Ankur Hooker Read By: [...] | | | | | JOB #: [id number] | | Digitally Released by: Ankur Hooker | | | | | | Read By: ANKUR HOOKER MD | | Date: 01/09/2017 16:28 | | | + + documented in this encounter Visit Diagnoses Not on filedocumented in this encounter"
--- OUTSIDE RECORDS SUMMARY | ~2019-09-12 | XMS | Encounter Summary ---
Demographics + + + | Address | [address] [facility] | | | [place] [address] | + + + | Home Phone [...] Team Providers + +------+ + | Care Metal Furnace Operator Name | Role | Phone | [...] | | | [place], [place] | [address] | | | | | [address] | [phone] | | | | | [phone] | | | +--------+ + + + [...] | | | | | | [place] [address] | | | | | | [phone] | | | | | | | | +--------+---------+ + + + | 05/08/ | Office | Neurology | Garth Vinson MD | | | 2019 | Visit | | [address] | | | | | | [place] | | | | | | [address] | | | | | | | | +--------+---------+ + + + documented as of this encounter Visit Diagnoses Not on filedocumented in this encounter"
--- OUTSIDE RECORDS SUMMARY | ~2019-09-12 | XMS | Encounter Summary ---
Demographics + + + | Address | [address] | | | [place] [address] | + + + | Home Phone | | + + + | Preferred Language | Unknown | + + + | Marital Status | | + + + | Buddhist Affiliation | 1077 | + + + | Race | Unknown | + + + | Ethnic Group | Unknown | + + + Author + + + | Author | [facility] | | | and [place] | + + + | Organization | [facility] [...] Team Providers + +------+ + | Care Hand Buffing Wheel Former Name | Role | Phone | + [...] [place] | | | | | | [address] | [address] | | | | | | Phone: | Phone: | | | | | | [phone] | [phone] | | | | | | Fax: | Fax: | | | | | | [phone] | [phone] | +--------+ + + + + + [...] partial seizures | | | | [place] [address] | | with consciousness | | | | [phone] | | impaired ([facility]); | | | | | | Neurologic [...] be different from the original. Patient Instructions [facility] Neurology Clinic Dr. Garth Vinson, Neurologist Date:05/18/2019 Name:Cristina Lili Buckner :..1940 Please schedule next follow up appt with Dr. 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 magazines, perform word find exercises such as cross word puzz le, and scrabble, other puzzle games like Directlyu, Mahjong. Play computer/mobile applications such as DadaJOE.com and MIND GAMES Continue topamax Gave medical education to avoid sleep deprivation, alcohol, stimulant, or any type of head trauma Any Questions please call ARIANA Chapin or Dr. Vinson at [facility] Neurology Clinic FallPrevention Falls often occur due [...] more likely to fall. Date Last Reviewed: 01/25/201819999812-[email or web address] [place] [address], [place] [address]. All righ ts reserved. This information is [...] and should not do. Date Last Reviewed: 02/24/201819993141-1589 [employer]. [address] [place] [address], [place] [address]. All righ ts reserved. This information is [...] unless you ve been trained by a [facility]. Speak quietly to the person as [...] Alcohol or drug withdrawal Date Last Reviewed: 08/27/201719998039-3328 [employer]. [address] [place] [address]. All [facility] ts reserved. This information is not [...] acupuncture, massage, and others. Date Last Reviewed: 09/26/201719999827-7590 [employer]. [address] [place] [address]. All [facility] ts reserved. This information is not [...] massage, and other methods. Date Last Reviewed: 10/27/201719998247-7921 [employer]. [address] [place] [address]. All [facility] ts reserved. This information is not intended as a substitute for professional medical care. Always follow your healthcare professional's instructions. documented in this encounter Progress Notes Garth Vinson MD - 05/18/2019 3:30 PM PDT Patient: Cristina Buckner Medical Record: [id number] Date of Services: 05/18/2019 Referring Doctor: Yair [...] advised PT/OT and ga it training at [facility]. She has a cane and rolli ng [...] oriented to time, place, and person. [facility] flu[facility]. Memory, attention, comprehension, [...] CEREBELLAR EXAMINATION: There is no dysmetria on fpxvty-be-qssk test. 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 Garth Vinson, Neurologist Date:05/18/2019 Name:Cristina Pearson Dudley :..1940 Please schedule next follow up appt with Dr. 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 magazines, perform word find exercises such as cross word puzz le, and scrabble, other puzzle games like SudSookasau, Mahjong. Play computer/mobile applications such as DadaJOE.com and [employer] GAMES Continue topamax Gave medical education to avoid sleep deprivation, alcohol, stimulant, or any type of head trauma Schedule for NCS/EMG of the lower extremities, ordered on her last visit Any Questions please call ARIANA Chapin or Dr. Vinson at [facility] Neurology Clinic FallPrevention Falls often occur due [...] more likely to fall. Date Last Reviewed: 01/25/201819993805-[address] [employer] [place] [address]. All righ ts reserved. This information is [...] and should not do. Date Last Reviewed: 02/24/201819999253-4330 [employer]. [address] [place] [address], [place] [address]. All righ ts reserved. This information is [...] unless you ve been trained by a [facility] provider. Speak quietly to the person as [...] Alcohol or drug withdrawal Date Last Reviewed: 08/27/201719999845-2759 [employer]. [address] [place] [address]. All righ ts reserved. This information is [...] acupuncture, massage, and others. Date Last Reviewed: 09/26/201719996820-6127 [employer]. [address] [place] [address]. All righ ts reserved. This information is [...] massage, and other methods. Date Last Reviewed: 10/27/201719995397-[address] [place] [address], [place] [id number]. All [facility] ts reserved. This information is not intended as a substitute for professional medical care. Always follow your healthcare professional's instructions. Garth Vinson MD05/18/201915:49 Electronically signed NOTE: Part of this report was transcribed using voice recognition software. Every effort was made to ensure accuracy. However, inadvertent computerize risk control representative errors may be present documented in this [...] | | | | | | [place] [address] | | | | | | [phone] | | | | | | | | +--------+---------+ + + + | 05/08/ | Office | Neurology | Garth Vinson MD | | | 2019 | Visit | | [address] | | | | | | [place] | | | | | | [address] | | | | | | | | +--------+---------+ + + + + + +--------+ + + | Name | Type | Priori | Associated Diagnoses | Order Schedule | | | | ty | | | + + +--------+ + + | Anibal | Outpatient | Routin | Gait disorder [...] Diagnostics | | | | | | [facility] José Miguel | | | | | | Bryon Alejo M.D., | | | | | | Ph.D., Laboratory | | | | | | Director [id number] | | | | | | [facility] | | | | | | [place] [address] | | | | | | CLIA #[id number] | | | | + + + + + + + + | Specimen | + + | Blood | + + + + + + + | Performing | Address | City/State/Zipcode | Phone Number | | Organization | | | | + + + + + | REFERENCE LAB | [address] [facility] | [place], [place] | | | [facility] - | | [address] | | | [place] | | [...]
--- OUTSIDE RECORDS SUMMARY | ~2019-09-12 | XMS | Encounter Summary ---
Demographics + + + | Address | [address] | | | [place] [address] | + + + | Home Phone [...] Providers + +------+ + | Care Director Selection And Administration Name | Role | Phone | + +------+ + PCP | Unavailable | + +------+ + Encounter Details +--------+ + + + + | Date | Type | Department | Care Team | Description | +--------+ + + + + | 02/04/ | [facility] [place] [place] | | | 2012 | Encounter | HOSPITAL EMERGENCY | MD [address]ie [address] | | | | | CENTER [address] | [place], | | | | | [place], [place] | [place] [address] | | | | | [address] | [phone] | | | | | [phone] | | | +--------+ + + + [...] | | | | | | [place] [address] | | | | | | [phone] | | | | | | | | +--------+---------+ + + + | 05/08/ | Office | Neurology | Garth Vinson MD | | | 2019 | Visit | | [address] | | | | | | [place], [place] | | | | | | [address] | | | | | | | | +--------+---------+ + + + documented as of this encounter Visit Diagnoses Not on filedocumented in this encounter"
--- OUTSIDE RECORDS SUMMARY | ~2019-09-12 | XMS | Encounter Summary ---
Demographics + + + | Address | [address] | | | [place] [address] | + + + | Home Phone [...] Team Providers + +------+ + | Care Ships Or Barges Loader Name | Role | Phone | + [...] | | | | [place] | [address] | | | | | [address] | [phone] | | | | | [phone] | | | +--------+ + + + [...] | | | | | | [place] [address] | | | | | | [phone] | | | | | | | | +--------+---------+ + + + | 05/08/ | Office | Neurology | Garth Vinson MD | | | 2019 | Visit | | [address] | | | | | | [place] | | | | | | [address] | | | | | | | | +--------+---------+ + + + documented as of this encounter Visit Diagnoses Not on filedocumented in this encounter"
--- OUTSIDE RECORDS SUMMARY | ~2019-09-12 | XMS | Encounter Summary ---
Demographics + + + | Address | [address] | | | [place] [address] | + + + | Home Phone | | + + + | Preferred Language | Unknown | + + + | Marital Status | | + + + | Tenriism Affiliation | 1077 | + + + | Race | Unknown | + + + | Ethnic Group | Unknown | + + + Author + + + | Author | [facility] | | | and [place] | + + + | Organization | [facility] | | [...] Team Providers + +------+ + | Care Riffler Tender Name | Role | Phone | [...] with type 2 | [place], [place] | [place], [place] | | | | | diabetes | [address] | [address] | | | | | mellitus | Phone: | Phone: | | | | | (HCC) | [phone] | [phone] | | | | | Neurologic | Fax: | Fax: | | | | | gait | [phone] | [phone] | | | | | disorder | | | +--------+ + + + + + Reason for Visit + + + | Reason | Comments | + + + | Follow-up | seizures/stroke | + + + Evaluate & Treat (Routine) + +--------+ + + + + | Status | Reason | Specialty | Diagnoses / | Referred By | Referred To | | | | | Procedures | Contact | Contact | + +--------+ + + + + | Authorized | | Neurology | Diagnoses | Rosibel, | Karel, | | | | | | Yair Carrillo MD | Reinaldo Carrillo MD | | | | | Localization | 2010 | [address] | | | | | -related | [place], | [place] | | | | | (focal) | [place] | [place], [place] | | | | | (partial) | [address] | [address] Phone: | | | | | symptomatic | Phone: | [phone] | | | | | epilepsy and | [phone] | Fax: | | | | | epileptic | Fax: | [phone] | | | | | syndromes | [phone] | | | | | | with [...] | | | (HCC) | | | + +--------+ + + + + Encounter Details +--------+---------+ + + + | Date | Type | Department | Care Team | Description | +--------+---------+ + + + | 03/29/ | Office | [facility] | Reinaldo Vinson MD | Seizure ([facility]) | | 2019 | Visit | HOSPITAL NEUROLOGY | [address] | (Primary Dx); | | | | CLINIC [address] | [place], [place] | Complex partial | | | | DR [place], | [address] | seizures with | | | | [place] [address] | | consciousness | | | | [phone] | | impaired ([facility]); | | | | | | 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 | | | | | | ([facility]); Diabetic | | | | | | polyneuropathy | | | | | | associated with type | | | | | | 2 diabetes mellitus | | | | | | ([facility]); Numbness; | | | | | | [...] be different from the original. Patient Instructions [facility] Neurology Clinic Dr. Reinaldo Vinson, Neurologist [...] Comprehensive Metabolic Panel Topiramate Level Hemoglobin A1C [facility] Physical Therapy, External - AMB Referral EEG 24 HR AMBULATORY MONITORING Treatment Option- massage, Acupuncture, Over the counter heat patches (icy hot, thermacare, salonpas) , over the counter creams (aspercream, bengay cream, emu oi l), Relaxation therapy, Water therapy, Cortisone shots, Toradol Injections Suggest reading newspapers. magazines, perform word find exercises such as cross word puzz le, and scrabble, other puzzle games like ZhenXin, Zwipe. Play computer/mobile applications such as Callision and hereO GAMES Continue ASA 81 mg daily Topamax 25 mg, 2 tabs twice A day Discussed to avoid sleep deprivation, alcohol, stimulants, or any type of head trauma Any Questions please call ARIANA Chapin or Dr. Vinson at [facility] Neurology Clinic General Information on Diabetes [...] more information about diabetes , visit the [place] [employer] website at www.diabetes.org or call [phone]. When to seek medical advice Call your [...] Trouble speaking or seeing Date Last Reviewed: 03/27/201619999659-0402 [employer]. [address] [place] [address], [place] [address]. All [facility] ts reserved. This information is [...] acupuncture, massage, and others. Date Last Reviewed: 09/26/201719999604-9686 [employer]. [address] [place] [address], [place] [address]. All righ ts reserved. This information is [...] massage, and other methods. Date Last Reviewed: 10/27/201719994544-5715 [employer]. [address] [place] [address], [place] [id number]. All [facility] ts reserved. This information is [...] and should not do. Date Last Reviewed: 02/24/201819994060-6373 [employer]. [address], [place] [address]. All [facility] ts reserved. This information is not intended [...] are fighting an infection. Date Last Reviewed: 02/24/201819994034-0406 [employer]. [address] [place] [address], [place] [address]. All righ ts reserved. This information is not intended as a substitute for professional medical care. Always follow your healthcare professional's instructions. documented in this encounter Progress Notes Reinaldo Vinson MD - 03/29/2019 3:30 PM PDT Patient: Cristina Buckner Medical Record: [id number] Date of Services: 03/29/2019 Referring Doctor: Yair [...] medical education and will undergo PT/OT through [facility] for gait training. She has other past [...] and oriented to time, place, and person. [facility] is fluent. able to repeat, able to [...] CEREBELLAR EXAMINATION: There is no dysmetria on ewuloc-fk-mrfk test. MISCELLANEOUS EXAM: Atraumatic, no evidence of [...] disorder Hypertension Hx TIA Plan: Patient Instructions [facility] Neurology Clinic Dr. Reinaldo Vinson, Neurologist Date:03/29/2019 Name:Cristina Pearson Dudley :..1940 Please schedule next follow up appt with Dr. Vinson in one year for Seizures, complex partial with secondary generalization, last seizure 3 years ago Diabetic polyneuropathy, with gait disorder Hypertension Hx TIA You have the following tests/procedures ordered: Orders Placed This Encounter Procedures EMG Study- Lower Extremity CBC with Differential Comprehensive Metabolic Panel Topiramate Level Hemoglobin A1C [facility] Physical Therapy, External - AMB Referral EEG 24 HR AMBULATORY MONITORING Treatment Option- massage, Acupuncture, Over the counter heat patches (icy hot, thermacare, salonpas) , over the counter creams (aspercream, bengay cream, emu oi l), Relaxation therapy, Water therapy, Cortisone shots, Toradol Injections Suggest reading newspapers. magazines, perform word find exercises such as cross word puzz le, and scrabble, other puzzle games like Pure life renalu, [employer]. Play computer/mobile applications such as Callision and MIND GAMES Continue ASA 81 mg daily Topamax 25 mg, 2 tabs twice A day Discussed to avoid sleep deprivation, alcohol, stimulants, or any type of head trauma Any Questions please call ARIANA Chapin or Dr. Vinson at [facility] Neurology Clinic General Information on Diabetes [...] more information about diabetes , visit the [place] [employer] website at www.diabetes.org or call [phone]. When to seek medical advice Call your [...] Trouble speaking or seeing Date Last Reviewed: 03/27/201619999596-0160 [employer]. [address] [place] [address], [place] [address]. All [facility] ts reserved. This information is [...] acupuncture, massage, and others. Date Last Reviewed: 09/26/201719993522-0162 [employer]. [address] [place] [address]. All [facility] ts reserved. This information is [...] massage, and other methods. Date Last Reviewed: 10/27/201719993592-7971 [employer]. [address] [place] [address], [place] [address]. All [facility] ts reserved. This information is [...] and should not do. Date Last Reviewed: 02/24/201819991813-5328 [employer]. [address] [place] [address], [place] [id number]. All righ ts reserved. This information is [...] are fighting an infection. Date Last Reviewed: 02/24/201819993745-4029 [employer]. [address] [place] [address], [place] [address]. All righ ts reserved. This information is not intended as a substitute for professional medical care. Always follow your healthcare professional's instructions. Reinaldo Vinson MD03/29/201915:57 Electronically signed NOTE: Part of this report was transcribed using voice recognition software. Every effort was made to ensure accuracy. However, inadvertent computerize cnc mill and lathe operator errors may be present documented in this [...] | | | | | | [place] [address] | | | | | | [phone] | | | | | | | | +--------+---------+ + + + | 05/08/ | Office | Neurology | Reinaldo Vinson MD | | 2019 | Visit | | [address] | | | | | | [place] | | | | | | [id number] | | | | | | | | +--------+---------+ + + + + + +--------+ + + | Name | Type | Priori | Associated Diagnoses | Order Schedule | | | | ty | | | + + +--------+ + + | CBC with | Lab | Routin | Seizure ([facility]) | 1 Occurrences | | Differential | | e | | starting 03/29/2019 | | | | | | until 03/29/2020 | + + +--------+ + + | Comprehensive | Lab | Routin | Seizure ([facility]) | 1 Occurrences | | Metabolic Panel | | e | | starting 03/29/2019 | | | | | | until 03/29/2020 | + + +--------+ + + | EEG 24 HR AMBULATORY | Neurology | Routin | Seizure ([facility]) | 1 Occurrences | | MONITORING | [...] + + +--------+ + + | [facility] | Outpatient | Routin | Diabetic | Ordered: 03/29/2019 | | Physical Therapy, | Referral | e | polyneuropathy | | | External - AMB | | | associated with type | | | Referral | | | 2 diabetes mellitus | | | | | | ([facility]) Neurologic | | | | | | [...] + + + + + + | RBC Count | 4.19 | 3.8 - 5.1 | [...] | [facility] | | | | REINALDO morgan ([id number]) | | | | | | [phone] | | | | | | | | | | + + + + + + + + | Specimen | + + | | + + + + + | Narrative | Performed At | + + + | Testing Performed at: [facility] CLIA: [id number] - 2466 | REFERENCE LAB | | [place] [address] | [facility] | + + + + + + + + | Performing | Address | City/State/Zipcode | Phone Number | | Organization | | | | + + + + + | REFERENCE LAB | [address] | [place] [address] | [phone] | | [facility] | | | | + + + [...] the | | | | | | [place] [facility] | | | | | | [...] | | | | | REINALDO [place] ([id number]) | | | | | | [phone] | | | | + + + + + + + + | Specimen | + + | | + + + + + | Narrative | Performed At | + + + | Testing Performed at: [facility] CLIA: [id number] - 2259 | REFERENCE LAB | | [place] [address] | [facility] | + + + + + + + + | Performing | Address | City/State/Zipcode | Phone Number | | Organization | | | | + + + + + | REFERENCE LAB | [facility] | [place] [address] | [phone] | | [facility] | | | | + + + [...] + + + + + | ALK PHOLang | 91 | 31 - 130 | [...] | | | | | REINALDO [place] (078) | | | | | | [phone] | | | | + + + + + + + + | Specimen | + + | | + + + + + | Narrative | Performed At | + + + | Testing Performed at: [facility] CLIA: [id number] - 2577 | REFERENCE LAB | | [place] [address] | [facility] | + + + + + + + + | Performing | Address | City/State/Zipcode | Phone Number | | Organization | | | | + + + + + | REFERENCE LAB | 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
--- OUTSIDE RECORDS SUMMARY | ~2019-09-12 | XMS | Encounter Summary ---
Demographics + + + | Address | [address] | | | [place] [address] | + + + | Home Phone [...] Team Providers + +------+ + | Care Velocity Shooter Name | Role | Phone | + +------+ + PCP | Unavailable | + +------+ + Encounter Details +--------+ + + + + | Date | Type | Department | Care Team | Description | +--------+ + + + + | 05/03/ | Hospital | [facility] | Garth Vinson MD | | | 2012 | Encounter | [facility] | [address] | | | | | [facility] [address] | [place], [place] | | | | | [address] [place], | [address] | | | | | [place] [address] | | | | | | [phone] | | | +--------+ + + + [...] | | | | | | [place] [address] | | | | | | [phone] | | | | | | | | +--------+---------+ + + + | 05/08/ | Office | Neurology | Garth Vinson MD | | | 2019 | Visit | | [address] | | | | | | [place], [place] | | | | | | [address] | | | | | | | | +--------+---------+ + + + documented as of this encounter Visit Diagnoses Not on filedocumented in this encounter"
--- OUTSIDE RECORDS SUMMARY | ~2019-09-12 | XMS | Encounter Summary ---
Demographics + + + | Address | [address] | | | [place] [address] | + + + | Home Phone [...] Team Providers + +------+ + | Care Court Registry Officer Name | Role | Phone | [...] [address] | | | | | [place] [address] | | | | | | [phone] | | | +--------+ + + + [...] | | | | | | [address] [facility] [place], | | | | | | [place] [address] | | | | | | [phone] | | | | | | | | +--------+---------+ + + + | 05/08/ | Office | Neurology | Garth Vinson MD | | | 2020 | Visit | | [address] | | | | | | [place] | | | | | | [address] | | | | | | | [...]
--- OUTSIDE RECORDS SUMMARY | ~2019-09-12 | XMS | Encounter Summary ---
Demographics + + + | Address | [address] [facility] [address] | | | [place] [address] | + + + | Home Phone [...] Team Providers + +------+ + | Care Epic Ambulatory Analyst Name | Role | Phone | + +------+ + PCP | Unavailable | + +------+ + Encounter Details +--------+ + + + + | Date | Type | Department | Care Team | Description | +--------+ + + + + | 09/14/ | Hospital | [facility] | Cole Addison | | | 2011 | Encounter | HOSPITAL ORTHOPEDIC | MD Yuri [address] | | | | | [address] [place] | [place] | | | | | [place] | [place], [place] | | | | | [address] | [address] | | | | | [phone] | | | | | | | [...] | | | | | | [place] [address] | | | | | | [phone] | | | | | | | | +--------+---------+ + + + | 05/08/ | Office | Neurology | Garth Vinson MD | | | 2020 | Visit | | [address] | | | | | | [place] | | | | | | [address] | | | | | | | | +--------+---------+ + + + documented as of this encounter Visit Diagnoses Not on filedocumented in this encounter"
--- OUTSIDE RECORDS SUMMARY | ~2019-09-12 | XMS | Encounter Summary ---
Demographics + + + | Address | [address] [facility] | | | [place] [address] | + + + | Home Phone [...] Team Providers + +------+ + | Care Acquisition Analyst Name | Role | Phone | [...] | | | | [place] | [address] | | | | | [address] | [phone] | | | | | [phone] | | | +--------+ + + + [...] | | | | | | [place] [address] | | | | | | [phone] | | | | | | | | +--------+---------+ + + + | 05/08/ | Office | Neurology | Garth Vinson MD | | | 2019 | Visit | | [address] | | | | | | [place] | | | | | | [phone] | | | | | | | [...] 5 Highly suggestive for/of malignancy. JOB #: [id number] | | | Digitally Released by: Ankur [...] | | | | | JOB #: [id number] | | Digitally Released by: Ankur Hooker | | | | | | Read By: ANKUR HOOKER MD | | Date: 01/17/2017 16:54 | | | + + documented in this encounter Visit Diagnoses Not on filedocumented in this encounter
--- OUTSIDE RECORDS SUMMARY | ~2019-09-12 | XMS | Encounter Summary ---
Demographics + + + | Address | [address] [facility] [address] | | | [place] [address] | + + + | Home Phone | | + + + | Preferred Language | Unknown | + + + | Marital Status | | + + + | Latter Day Affiliation | 1077 | + + + | Race | Unknown | + + + | Ethnic Group | Unknown | + + + Author + + + | Author | [facility] | | | and [place] | + + + | Organization | [facility] | | [...] Team Providers + +------+ + | Care Rate Examiner Name | Role | Phone | [...] [place] | | | | | [address] [facility] [place], | [address] | | | | | [place] [address] | | | | | | [phone] | | | +--------+ + + + [...] | | | | | | [place] [address] | | | | | | [phone] | | | | | | | | +--------+---------+ + + + | 05/08/ | Office | Neurology | Garth Vinson MD | | | 2019 | Visit | | [address] | | | | | | [place], [place] | | | | | | [address] | | | | | | | | +--------+---------+ + + + documented as of this encounter Visit Diagnoses Not on filedocumented in this encounter"
--- OUTSIDE RECORDS SUMMARY | ~2019-09-12 | XMS | Encounter Summary ---
Demographics + + + | Address | [address] [facility] | | | [place] [address] | + + + | Home Phone | | + + + | Preferred Language | Unknown | + + + | Marital Status | | + + + | Mormon Affiliation | 1077 | + + + | Race | Unknown | + + + | Ethnic Group | Unknown | + + + Author + + + | Author | [facility] | | | and [place] | + + + | Organization | [facility] | | | and [...] Team Providers + +------+ + | Care Hands Parter Name | Role | Phone | + [...] | | [address] [place] | [place] | | | | | [place] | [place], [place] | | | | | [address] | [address] | | | | | [phone] | | | | | | | [...] | | | | | | [place] [address] | | | | | | [phone] | | | | | | | | +--------+---------+ + + + | 05/08/ | Office | Neurology | Garth Vinson MD | | | 2019 | Visit | | [address] | | | | | | [place] | | | | | | [address] | | | | | | | | +--------+---------+ + + + documented as of this encounter Visit Diagnoses Not on filedocumented in this encounter"
--- OUTSIDE RECORDS SUMMARY | ~2019-09-12 | XMS | Encounter Summary ---
Demographics + + + | Address | [address] [facility] | | | [place] [address] | + + + | Home Phone | | + + + | Preferred Language | Unknown | + + + | Marital Status | | + + + | Baptism Affiliation | 1077 | + + + [...] Team Providers + +------+ + | Care Deputy Program Manager Name | Role | Phone | [...] [address] | | | | | [place] [address] | | | | | | [phone] | | | +--------+ + + + [...] | | | | | | [place] [address] | | | | | | [phone] | | | | | | | | +--------+---------+ + + + | 05/08/ | Office | Neurology | Garth Vinson MD | | | 2020 | Visit | | [address] | | | | | | [place] | | | | | | [phone] | | | | | | | | +--------+---------+ + + + documented as of this encounter Visit Diagnoses Not on filedocumented in this encounter"
--- OUTSIDE RECORDS SUMMARY | ~2019-09-12 | XMS | Encounter Summary ---
Demographics + + + | Address | [address] [facility] | | | [place] [address] | + + + | Home Phone [...] Team Providers + +------+ + | Care Flotation Tank Operator Name | Role | Phone | + +------+ + PCP | Unavailable | + +------+ + Encounter Details +--------+ + + + + | Date | Type | Department | Care Team | Description | +--------+ + + + + | 03/02/ | Hospital | [facility] | Cole Addison | | | 2013 | Encounter | HOSPITAL XRAY [address] | [address] | | | | | [address] | [place] | | | | | [place] | [place], [place] | | | | | [address] | [address] | | | | | [phone] | | | | | | | [...] | | | | | | [place] [address] | | | | | | [phone] | | | | | | | | +--------+---------+ + + + | 05/08/ | Office | Neurology | Garth Vinson MD | | | 2019 | Visit | | [address] | | | | | | [place] | | | | | | [address] | | | | | | | | +--------+---------+ + + + documented as of this encounter Visit Diagnoses Not on filedocumented in this encounter"
--- OUTSIDE RECORDS SUMMARY | ~2019-09-12 | XMS | Encounter Summary ---
Demographics + + + | Address | [address] [facility] | | | [place] [address] | + + + | Home Phone [...] Team Providers + +------+ + | Care Appliance Repair Technician Name | Role | Phone | + +------+ + PCP | Unavailable | + +------+ + Encounter Details +--------+ + + + + | Date | Type | Department | Care Team | Description | +--------+ + + + + | 07/03/ | Hospital | [facility] | Yair Gleason, | | | 2012 | Encounter | HOSPITAL LABORATORY | [address] | | | | | [address] | [place] | | | | | [place] | [address] | | | | | [address] | [phone] | | | | | [phone] | | | +--------+ + + + [...] | | | | | | [place] [address] | | | | | | [phone] | | | | | | | | +--------+---------+ + + + | 05/08/ | Office | Neurology | Garth Vinson MD | | | 2019 | Visit | | [address] | | | | | | [place] | | | | | | [address] | | | | | | | | +--------+---------+ + + + documented as of this encounter Visit Diagnoses Not on filedocumented in this encounter"
--- OUTSIDE RECORDS SUMMARY | ~2019-09-12 | XMS | Encounter Summary ---
Demographics + + + | Address | [address] [facility] | | | [place] [address] | + + + | Home Phone [...] Team Providers + +------+ + | Care Staff Cytotechnologist Name | Role | Phone | + [...] | | | | [place], [place] | [address] | | | | | [address] | [phone] | | | | | [phone] | | | +--------+ + + + [...] | | | | | | [place] [address] | | | | | | [phone] | | | | | | | | +--------+---------+ + + + | 05/08/ | Office | Neurology | Garth Vinson MD | | | 2019 | Visit | | [address] | | | | | | [place] | | | | | | [address] | | | | | | | [...]
--- OUTSIDE RECORDS SUMMARY | ~2019-09-12 | XMS | Encounter Summary ---
Demographics + + + | Address | [address] [facility] | | | [place] [address] | + + + | Home Phone [...] Providers + +------+ + | Care Manager Of Global Name | Role | Phone | + +------+ + PCP | Unavailable | + +------+ + Encounter Details +--------+ + + + + | Date | Type | Department | Care Team | Description | +--------+ + + + + | 04/16/ | Hospital | [facility] | Conversion | | | 2013 | Encounter | HOSPITAL PATHOLOGY | Transaction, | | | | | [address] | Provider Unknown | | | | | [place], [place] | | | | | | [address] | (Fax) | | | | | [phone] | | | +--------+ + + + [...] | | | | | | [place] [address] | | | | | | [phone] | | | | | | | | +--------+---------+ + + + | 05/08/ | Office | Neurology | Garth Vinson MD | | | 2020 | Visit | | [address] | | | | | | [place] | | | | | | [address] | | | | | | | | +--------+---------+ + + + documented as of this encounter Visit Diagnoses Not on filedocumented in this encounter"
--- OUTSIDE RECORDS SUMMARY | ~2019-09-12 | XMS | Encounter Summary ---
Demographics + + + | Address | [address] [facility] | | | [place] [address] | + + + | Home Phone [...] Team Providers + +------+ + | Care Residential Construction Instructor Name | Role | Phone | + +------+ + PCP | Unavailable | + +------+ + Encounter Details +--------+ + + + + | Date | Type | Department | Care Team | Description | +--------+ + + + + | 09/10/ | Hospital | [facility] | [place], | | | 2013 | Encounter | HOSPITAL MED SURG | Hiro Mariano, | | | | | [address] | [address] | | | | | [place] | [place], [place] | | | | | [address] | [address] | | | | | [phone] | [phone] | | | | | | | [...] | | | | | | [place] [address] | | | | | | [phone] | | | | | | | | +--------+---------+ + + + | 05/08/ | Office | Neurology | Garth Vinson MD | | | 2019 | Visit | | [address] | | | | | | [place] | | | | | | [address] | | | | | | | | +--------+---------+ + + + documented as of this encounter Visit Diagnoses Not on filedocumented in this encounter"
--- OUTSIDE RECORDS SUMMARY | ~2019-09-12 | XMS | Encounter Summary ---
Demographics + + + | Address | [address] [facility] | | | [place] [address] | + + + | Home Phone [...] Team Providers + +------+ + | Care Rf Technician Name | Role | Phone | [...] | | | [place], [place] | [address] | | | | | [address] | [phone] | | | | | [phone] | | | +--------+ + + + [...] | | | | | | [place] [address] | | | | | | [phone] | | | | | | | | +--------+---------+ + + + | 05/08/ | Office | Neurology | Garth Vinson MD | | | 2019 | Visit | | [address] | | | | | | [place] | | | | | | [address] | | | | | | | | +--------+---------+ + + + documented as of this encounter Visit Diagnoses Not on filedocumented in this encounter"
--- OUTSIDE RECORDS SUMMARY | ~2019-09-12 | XMS | Encounter Summary ---
Demographics + + + | Address | [address] [facility] | | | [place] [address] | + + + | Home Phone | | + + + | Preferred Language | Unknown | + + + | Marital Status | | + + + | Voodoo Affiliation | 1077 | + + + [...] Team Providers + +------+ + | Care Helminthology Teacher Name | Role | Phone | [...] + + + + | 03/27/ | Telephone | [facility] | Garth Vinson MD | Other | | 2018 | | HOSPITAL NEUROLOGY | [address] | | | | | CL[facility] [address] | [place] | | | | | DR [place], | [address] | | | | | [place] [address] | | | | | | [phone] | | | +--------+ + + + [...] | | | | | | [place] [address] | | | | | | [phone] | | | | | | | | +--------+---------+ + + + | 05/08/ | Office | Neurology | Garth Vinson MD | | | 2020 | Visit | | [address] | | | | | | [place] | | | | | | [address] | | | | | | | | +--------+---------+ + + + documented as of this encounter Visit Diagnoses Not on filedocumented in this encounter"
--- OUTSIDE RECORDS SUMMARY | ~2019-09-12 | XMS | Encounter Summary ---
Demographics + + + | Address | [address] [facility] | | | [place] [address] | + + + | Home Phone [...] Team Providers + +------+ + | Care Air And Water Tester Name | Role | Phone | + [...] CLINIC [address] | [address] [place] | ([facility]); Diabetic | | | | DR [place], | [place] [address] | polyneuropathy | | | | [place] [address] | [phone] | associated with type | | | | [phone] | | 2 diabetes mellitus | | | | | | ([facility]); Numbness | +--------+ + + + [...] | | | | | | [place] [address] | | | | | | [phone] | | | | | | | [...] the | | | | PST | ([facility]) Diabetic | results section. | | | | | polyneuropathy | | | | | | associated with type | | | | | | 2 diabetes mellitus | | | | | | ([facility]) Numbness | | + +--------+ + + + | EMG STUDY | Routin | 09/10/2019 | Diabetes mellitus | Results for this | | | e | 2:00 PM | type 2 in nonobese | procedure are in the | | | | PST | ([facility]) Diabetic | results section. | | | | | polyneuropathy | | | | | | associated with type | | | | | | 2 diabetes mellitus | | | | | | ([facility]) Numbness | | + +--------+ + + + | EMG STUDY | Routin | 09/10/2019 | Diabetes mellitus | Results for this | | | e | 2:00 PM | type 2 in nonobese | procedure are in the | | | | PST | ([facility]) Diabetic | results section. | | | | | polyneuropathy | | | | | | associated with type | | | | | | 2 diabetes mellitus | | | | | | ([facility]) Numbness | | + +--------+ + + + documented in this encounter Visit Diagnoses + + | Diagnosis | + + | Diabetes mellitus type 2 in nonobese ([facility]) Type II or unspecified type diabetes | | mellitus without mention of complication, not stated as uncontrolled | + + | Diabetic polyneuropathy associated with type 2 diabetes mellitus ([facility]) | + + | Numbness Disturbance of skin sensation | + + documented in this encounter
--- OUTSIDE RECORDS SUMMARY | ~2019-09-12 | XMS | Encounter Summary ---
Demographics + + + | Address | [address] [facility] [facility] | | | [place] [address] | + + + | Home Phone [...] + +------+ + | Care Income Tax Adjuster Name | Role | Phone | + [...] [place], [place] | | | | | [address] | [address] | | | | | [phone] | [phone] | | | | | | | [...] | | | | | | [place] [address] | | | | | | [phone] | | | | | | | [...]
--- OUTSIDE RECORDS SUMMARY | ~2019-09-12 | XMS | Encounter Summary ---
Demographics + + + | Address | [address] [facility] | | | [place] [address] | + + + | Home Phone | | + + + | Preferred Language | Unknown | + + + | Marital Status | | + + + | Yazdanism Affiliation | 1077 | + + + [...] Team Providers + +------+ + | Care Ordnance Mechanic Name | Role | Phone | + [...] | | | [place], [place] | [address] | | | | | [address] | [phone] | | | | | [phone] | | | +--------+ + + + [...] | | | | | | [place] [address] | | | | | | [phone] | | | | | | | | +--------+---------+ + + + | 05/08/ | Office | Neurology | Garth Vinson MD | | | 2019 | Visit | | [address] | | | | | | [place] | | | | | | [address] | | | | | | | | +--------+---------+ + + + documented as of this encounter Visit Diagnoses Not on filedocumented in this encounter"
--- OUTSIDE RECORDS SUMMARY | ~2019-09-12 | XMS | Encounter Summary ---
Demographics + + + | Address | [address] | | | [place] [address] | + + + | Home Phone [...] Team Providers + +------+ + | Care Paid Internship Name | Role | Phone | [...] [place] | | | | | [place], [place] | [address] | | | | | [address] | [phone] | | | | | [phone] | | | +--------+ + + + [...] | | | | | | [place] [address] | | | | | | [phone] | | | | | | | | +--------+---------+ + + + | 05/08/ | Office | Neurology | Garth Vinson MD | | | 2019 | Visit | | [address] | | | | | | [place] | | | | | | [address] | | | | | | | | +--------+---------+ + + + documented as of this encounter Visit Diagnoses Not on filedocumented in this encounter"
--- OUTSIDE RECORDS SUMMARY | ~2019-09-12 | XMS | Encounter Summary ---
Demographics + + + | Address | [address] | | | [place] [address] | + + + | Home Phone [...] Team Providers + +------+ + | Care Upper And Bottom Lacer Hand Name | Role | Phone | [...] | | | | | diabetes | [address] | [address] | | | | | mellitus | Phone: | Phone: | | | | | (HCC) | [phone] | [phone] | | | | | Neurologic | Fax: | Fax: | | | | | gait | [phone] | [phone] | | | | | disorder | [...] | | | | | (partial) | [address] | [address] Phone: | | | | | symptomatic | Phone: | [phone] | | | | | epilepsy and | [phone] | Fax: | | | | | epileptic | Fax: | [phone] | | | | | syndromes | [phone] | | | | | | with [...] | Reinaldo Vinson MD | Seizure ([facility]) | | 2019 | Visit | HOSPITAL NEUROLOGY | [address] | (Primary Dx); | | | | CLIN[address] | [place], [place] | Complex partial | | | | DR AAYUSH [place], | [address] | seizures with | | | | [place] [address] | | consciousness | | | | [phone] | | impaired ([facility]); | | | | | | 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 | | | | | | ([facility]); Diabetic | | | | | | polyneuropathy | | | | | | associated with type | | | | | | 2 diabetes mellitus | | | | | | ([facility]); Numbness; | | | | | [...] be different from the original. Patient Instructions [facility] Neurology Clinic Dr. Reinaldo Vinson, Neurologist Date:03/29/2019 [...] Comprehensive Metabolic Panel Topiramate Level Hemoglobin A1C [facility], External - AMB Referral EEG 24 HR AMBULATORY MONITORING Treatment Option- massage, Acupuncture, Over the counter heat patches (icy hot, thermacare, salonpas) , over the counter creams (aspercream, bengay cream, emu oi l), Relaxation therapy, Water therapy, Cortisone shots, Toradol Injections Suggest reading newspapers. magazines, perform word find exercises such as cross word puzz le, and scrabble, other puzzle games like Blurtt, TweetMeme. Play computer/mobile applications such as KAYAK and [employer] GAMES Continue ASA 81 mg daily Topamax 25 mg, 2 tabs twice A day Discussed to avoid sleep deprivation, alcohol, stimulants, or any type of head trauma Any Questions please call ARIANA Chapin or Dr. Vinson at [facility] Neurology Clinic General Information on Diabetes Diabetes [...] more information about diabetes , visit the [place] [employer] website at www.diabetes.org or call [phone]. When to seek medical advice Call your [...] Trouble speaking or seeing Date Last Reviewed: 03/27/201619996466-3828 [employer]. [address] [place] [address], [place] [address]. [address] [facility] ts reserved. This information is not [...] acupuncture, massage, and others. Date Last Reviewed: 09/26/201719993675-7522 [employer]. [address] [place] [address], [place] [address]. All righ ts reserved. This information is [...] massage, and other methods. Date Last Reviewed: 10/27/201719995150-1794 [facility]. [address] [place] [address], [place] [id number]. All [facility] ts reserved. This information is not [...] and should not do. Date Last Reviewed: 02/24/201819992783-0658 [employer]. [address] [facility], [place] [address]. All [facility] ts reserved. This information is not [...] are fighting an infection. Date Last Reviewed: 02/24/201819995961-2375 [employer]. [address] [place] [address], [place] [address]. All righ ts reserved. This information is not intended as a substitute for professional medical care. Always follow your healthcare professional's instructions. documented in this encounter Progress Notes Reinaldo Vinson MD - 03/29/2019 3:30 PM PDT Patient: Cristina Buckner Medical Record: [id number] Date of Services: 03/29/2019 Referring Doctor: Yair [...] medical education and will undergo PT/OT through [facility] loco Devi for gait training. She has [...] and oriented to time, place, and person. [facility] is fluent. able to repeat, [...] CEREBELLAR EXAMINATION: There is no dysmetria on [id number] test. MISCELLANEOUS EXAM: Atraumatic, no evidence of [...] disorder Hypertension Hx TIA Plan: Patient Instructions [facility] Neurology Clinic Dr. Reinaldo Vinson, Neurologist Date:03/29/2019 [...] Comprehensive Metabolic Panel Topiramate Level Hemoglobin A1C [facility], External - AMB Referral EEG 24 HR AMBULATORY MONITORING Treatment Option- massage, Acupuncture, Over the counter heat patches (icy hot, thermacare, salonpas) , over the counter creams (aspercream, bengay cream, emu oi l), Relaxation therapy, Water therapy, Cortisone shots, Toradol Injections Suggest reading newspapers. magazines, perform word find exercises such as cross word puzz le, and scrabble, other puzzle games like [employer], [employer]. Play computer/mobile applications such as KAYAK and [employer]AMES Continue ASA 81 mg daily Topamax 25 mg, 2 tabs twice A day Discussed to avoid sleep deprivation, alcohol, stimulants, or any type of head trauma Any Questions please call ARIANA Chapin or Dr. Vinson at [facility] Neurology Clinic General Information on Diabetes Diabetes [...] more information about diabetes , visit the [place] [employer] website at www.diabetes.org or call [phone]. When to seek medical advice Call your [...] Trouble speaking or seeing Date Last Reviewed: 03/27/201619995412-7442 [facility]. [address] [place] [address], [place] [address]. [address] [facility] ts reserved. This information is not [...] acupuncture, massage, and others. Date Last Reviewed: 09/26/201719992187-2560 [facility]. [address] [place] [address] [facility] ts reserved. This information is not [...] massage, and other methods. Date Last Reviewed: 10/27/201719997057-8321 [employer]. [address] [place] [address], [place] [address]. [address] [facility] ts reserved. This information is not [...] and should not do. Date Last Reviewed: 02/24/201819993201-2760 [employer]. [address] [place] [address], [place] [id number]. All righ ts reserved. This information is [...] are fighting an infection. Date Last Reviewed: 02/24/201819994746-7276 [employer]. [address] [place] [address], [place] [address]. All righ ts reserved. This information is not intended as a substitute for professional medical care. Always follow your healthcare professional's instructions. Reinaldo Vinson MD03/29/201915:57 Electronically signed NOTE: Part of this report was transcribed using voice recognition software. Every effort was made to ensure accuracy. However, inadvertent computerize code enforcement officer errors may be present documented in this [...] | | | | | | [place] [address] | | | | | | [phone] | | | | | | | | +--------+---------+ + + + | 05/08/ | Office | Neurology | Reinaldo Vinson MD | | 2019 | Visit | | [address] | | | | | | [place] | | | | | | [id number] | | | | | | | | +--------+---------+ + + + + + +--------+ + + | Name | Type | Priori | Associated Diagnoses | Order Schedule | | | | ty | | | + + +--------+ + + | CBC with | Lab | Routin | Seizure ([facility]) | 1 Occurrences | | Differential | | e | | starting 03/29/2019 | | | | | | until 03/29/2020 | + + +--------+ + + | Comprehensive | Lab | Routin | Seizure ([facility]) | 1 Occurrences | | Metabolic Panel | | e | | starting 03/29/2019 | | | | | | until 03/29/2020 | + + +--------+ + + | EEG 24 HR AMBULATORY | Neurology | Routin | Seizure ([facility]) | 1 Occurrences | | MONITORING [...] | | | | | | ([facility]) Neurologic | | | | | [...] [facility] | | | | REINALDO morgan (338) | | | | | | [phone] | | | | | | | | | | + + + + + + + + | Specimen | + + | | + + + + + | Narrative | Performed At | + + + | Testing Performed at: [facility] CLIA: [id number] - [id number] | REFERENCE LAB | | [place] [address] | [facility] | + + + + + + + + | Performing | Address | City/State/Zipcode | Phone Number | | Organization | | | | + + + + + | REFERENCE LAB | [address] | [place] [address] | [phone] | | [facility] | | | | [...] the | | | | | | [place] [facility] | | | | | | [...] | | | | | REINALDO Holbrook (470) | | | | | | [phone] | | | | + + + + + + + + | Specimen | + + | | + + + + + | Narrative | Performed At | + + + | Testing Performed at: [facility] CLIA: [id number] - 3529 | REFERENCE LAB | | [place] [address] | [facility] | + + + + + + + + | Performing | Address | City/State/Zipcode | Phone Number | | Organization | | | | + + + + + | REFERENCE LAB | [facility] | [place] [address] | [phone] | | [facility] | | | | [...] | | | | | REINALDO Holbrook (281) | | | | | | [phone] | | | | + + + + + + + + | Specimen | + + | | + + + + + | Narrative | Performed At | + + + | Testing Performed at: [facility] CLIA: [id number] - 9994 | REFERENCE LAB | | [place] [address] | [facility] | + + + + + + + + | Performing | Address | City/State/Zipcode | Phone Number | | Organization | | | | + + + + + | REFERENCE LAB | [facility] | [place] [address] | [phone] | | [facility] | | | | + + + + + documented in this encounter Visit Diagnoses + + | Diagnosis | + + | Seizure (HCC) - Primary Other convulsions | + + | Complex partial seizures with consciousness impaired ([facility]) 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
--- OUTSIDE RECORDS SUMMARY | ~2019-09-12 | XMS | Encounter Summary ---
Demographics + + + | Address | [address] | | | [place] [address] | + + + | Home Phone [...] Team Providers + +------+ + | Care Technology Consultant Name | Role | Phone | [...] | | | | [place] | [place], [place] | | | | | [address] | [address] | | | | | [phone] | [phone] | | | | | | | [...] | | | | | | [place] [address] | | | | | | [phone] | | | | | | | | +--------+---------+ + + + | 05/08/ | Office | Neurology | Garth Vinson MD | | | 2019 | Visit | | [address] | | | | | | [place] | | | | | | [address] | | | | | | | | +--------+---------+ + + + documented as of this encounter Visit Diagnoses Not on filedocumented in this encounter"
--- OUTSIDE RECORDS SUMMARY | ~2019-09-12 | XMS | Encounter Summary ---
Demographics + + + | Address | [address] | | | [place] [address] | + + + | Home Phone [...] | [facility] | | | and [place] | + [...] | + + +---------+ + | Yohannes yKree | ECON | Unknown | | + + +---------+ + Care Team Providers + +------+ + | Care Keyboard Instrument Tuner Name | Role | Phone | + +------+ + PCP | Unavailable | + +------+ + Encounter Details +--------+ + + + + | Date | Type | Department | Care Team | Description | +--------+ + + + + | 06/10/ | Hospital | [facility] | [place], | | | 2012 | Encounter | [facility] | Hiro [place]iano, | | | | | [facility] [address] | [address] | | | | | [address] [facility], | [facility], [place] | | | | | [place] [address] | [address] | | | | | [phone] | [phone] | | | | | | | [...] | | | | | | [place] [address] | | | | | | [phone] | | | | | | | | +--------+---------+ + + + | 05/08/ | Office | Neurology | Garth Vinson MD | | | 2019 | Visit | | [address] | | | | | | [place] | | | | | | [address] | | | | | | | | +--------+---------+ + + + documented as of this encounter Visit Diagnoses Not on filedocumented in this encounter"
--- OUTSIDE RECORDS SUMMARY | ~2019-09-12 | XMS | Encounter Summary ---
Demographics + + + | Address | [address] | | | [place] [address] | + + + | Home Phone [...] Team Providers + +------+ + | Care Relay Worker Name | Role | Phone | [...] | | | | [place] | [address] | | | | | [address] | [phone] | | | | | [phone] | | | +--------+ + + + [...] | | | | | | [place] [address] | | | | | | [phone] | | | | | | | | +--------+---------+ + + + | 05/08/ | Office | Neurology | Garth Vinson MD | | | 2019 | Visit | | [address] | | | | | | [place] | | | | | | [address] | | | | | | | | +--------+---------+ + + + documented as of this encounter Visit Diagnoses Not on filedocumented in this encounter"
--- OUTSIDE RECORDS SUMMARY | ~2019-09-12 | XMS | Encounter Summary ---
Demographics + + + | Address | [address] [facility] | | | [place] [address] | + + + | Home Phone | | + + + | Preferred Language | Unknown | + + + | Marital Status | | + + + | Sabianist Affiliation | 1077 | + + + | Race | Unknown | + + + | Ethnic Group | Unknown | + + + Author + + + | Author | [facility] | | | and [place] | + + + | Organization | [facility] | | | [...] Team Providers + +------+ + | Care Assistant Prosecuting Attorney Name | Role | Phone | + [...] | | | | [place] | [address] | | | | | [address] | | | | | | [phone] | | | +--------+ + + + [...] | | | | | | [place] [address] | | | | | | [phone] | | | | | | | | +--------+---------+ + + + | 05/08/ | Office | Neurology | Garth Vinson MD | | | 2019 | Visit | | [address] | | | | | | [place] | | | | | | [phone] | | | | | | | [...] | focal mass lesion is evident. JOB: [id number] | | | Read By: JOSEPH WILEY [...] mass | | lesion is evident. JOB: [id number] Read By: JOSEPH WILEY MD Released | | By: JOSEPH WILEY, MDDate: 02/06/2015 20:20 | |The fourth ventricle [...] is evident. | | | | JOB: [id number] | | | |Read By: JOSEPH WILEY MD | | | |Released By: JOSEPH WILYE MD | |Date: 02/06/2015 20:20 | | | | | + + documented in this encounter Visit Diagnoses Not on filedocumented in this encounter"
--- OUTSIDE RECORDS SUMMARY | ~2019-09-12 | XMS | Encounter Summary ---
Demographics + + + | Address | [address] | | | [place] [address] | + + + | Home Phone [...] Providers + +------+ + | Care Manager Bridge Name | Role | Phone | + [...] | | [place], [place] | [place] [address] | | | | | [address] | [phone] | | | | | [phone] | | | +--------+ + + + [...] | | | | | | [place] [address] | | | | | | [phone] | | | | | | | | +--------+---------+ + + + | 05/08/ | Office | Neurology | Garth Vinson MD | | | 2019 | Visit | | [address] | | | | | | [place], [place] | | | | | | [address] | | | | | | | | +--------+---------+ + + + documented as of this encounter Visit Diagnoses Not on filedocumented in this encounter"
--- OUTSIDE RECORDS SUMMARY | ~2019-09-12 | XMS | Encounter Summary ---
Demographics + + + | Address | [address] | | | [place] [address] | + + + | Home Phone [...] Team Providers + +------+ + | Care Operating System Programmer Name | Role | Phone | + +------+ + PCP | Unavailable | + +------+ + Encounter Details +--------+ + + + + | Date | Type | Department | Care Team | Description | +--------+ + + + + | 07/07/ | Hospital | [facility] | [place], | | | 2011 | Encounter | [facility] [place] [facility] | Hiro [place]iano, | | | | | [address] [place] | [address] | | | | | [place] | [place] | | | | | [address] | [address] | | | | | [phone] | [phone] | | | | | | | [...] | | | | | | [place] [address] | | | | | | [phone] | | | | | | | | +--------+---------+ + + + | 05/08/ | Office | Neurology | Garth Vinson MD | | | 2019 | Visit | | [address] | | | | | | [place] | | | | | | [address] | | | | | | | | +--------+---------+ + + + documented as of this encounter Visit Diagnoses Not on filedocumented in this encounter"
--- OUTSIDE RECORDS SUMMARY | ~2019-09-12 | XMS | Encounter Summary ---
Demographics + + + | Address | [address] | | | [place] [address] | + + + | Home Phone [...] Team Providers + +------+ + | Care Head Bookkeeper Name | Role | Phone | + [...] | | | [place], [place] | [address] | | | | | [address] | [phone] | | | | | [phone] | | | +--------+ + + + [...] | | | | | | [place] [address] | | | | | | [phone] | | | | | | | | +--------+---------+ + + + | 05/08/ | Office | Neurology | Garth Vinson MD | | | 2019 | Visit | | [address] | | | | | | [place] | | | | | | [address] | | | | | | | | +--------+---------+ + + + documented as of this encounter Visit Diagnoses Not on filedocumented in this encounter"
--- OUTSIDE RECORDS SUMMARY | ~2019-09-12 | XMS | Encounter Summary ---
Demographics + + + | Address | [address] [facility] | | | [place] [address] | + + + | Home Phone [...] Team Providers + +------+ + | Care Kier Operator Name | Role | Phone | [...] | | | [place], [place] | [address] | | | | | [address] | [phone] | | | | | [phone] | | | +--------+ + + + [...] | | | | | | [place] [address] | | | | | | [phone] | | | | | | | | +--------+---------+ + + + | 05/08/ | Office | Neurology | Garth Vinson MD | | | 2019 | Visit | | [address] | | | | | | [place] | | | | | | [address] | | | | | | | | +--------+---------+ + + + documented as of this encounter Visit Diagnoses Not on filedocumented in this encounter"
--- OUTSIDE RECORDS SUMMARY | ~2019-09-12 | XMS | Encounter Summary ---
Demographics + + + | Address | [address] | | | [place] [address] | + + + | Home Phone [...] Team Providers + +------+ + | Care Drill Runner Name | Role | Phone | + [...] | | | [place], [place] | [address] | | | | | [address] | [phone] | | | | | [phone] | | | +--------+ + + + [...] | | | | | | [place] [address] | | | | | | [phone] | | | | | | | | +--------+---------+ + + + | 05/08/ | Office | Neurology | Garth Vinson MD | | | 2019 | Visit | | [address] | | | | | | [place] | | | | | | [address] | | | | | | | | +--------+---------+ + + + documented as of this encounter Visit Diagnoses Not on filedocumented in this encounter"
--- OUTSIDE RECORDS SUMMARY | ~2019-09-12 | XMS | Encounter Summary ---
Demographics + + + | Address | [address] [facility] | | | [place] [address] | + + + | Home Phone | | + + + | Preferred Language | Unknown | + + + | Marital Status | | + + + | Judaism Affiliation | 1077 | + + + | Race | Unknown | + + + | Ethnic Group | Unknown | + + + Author + + + | Author | [facility] | | | and [place] | + + + | Organization | [facility] | [...] Team Providers + +------+ + | Care Surveillance Specialist Name | Role | Phone | [...] Follow-up, Office | | 2017 | | HOSPITAL NEUROLOGY | [address] | Visit | | | | CLINIC [address] | [place] | | | | | DR [place] [place], | [address] | | | | | [place] [address] | | | | | | [phone] | | | +--------+ + + + [...] | | | | | | [place] [address] | | | | | | [phone] | | | | | | | | +--------+---------+ + + + | 05/08/ | Office | Neurology | Garth Vinson MD | | | 2020 | Visit | | [address] | | | | | | [place] | | | | | | [phone] | | | | | | | | +--------+---------+ + + + documented as of this encounter Visit Diagnoses Not on filedocumented in this encounter"
--- OUTSIDE RECORDS SUMMARY | ~2019-09-12 | XMS | Encounter Summary ---
Demographics + + + | Address | [address] [facility] | | | [place] [address] | + + + | Home Phone [...] Team Providers + +------+ + | Care Route Contractor Name | Role | Phone | + [...] | | | | [place] | [place], [place] | | | | | [address] | [address] | | | | | [phone] | | | | | | | [...] | | | | | | [place] [address] | | | | | | [phone] | | | | | | | | +--------+---------+ + + + | 05/08/ | Office | Neurology | Garth Vinson MD | | | 2019 | Visit | | [address] | | | | | | [place] | | | | | | [address] | | | | | | | | +--------+---------+ + + + documented as of this encounter Visit Diagnoses Not on filedocumented in this encounter"
--- OUTSIDE RECORDS SUMMARY | ~2019-09-12 | XMS | Encounter Summary ---
Demographics + + + | Address | [address] [facility] | | | [place] [address] | + + + | Home Phone [...] Team Providers + +------+ + | Care Rotary Kiln Operator Name | Role | Phone | [...] | | | CENTER [address] | [facility] | | | | | [address] [place], [place] | [place] [address] | | | | | [address] | [phone] | | | | | [phone] | | | +--------+ + + + [...] | | | | | | [place] [address] | | | | | | [phone] | | | | | | | | +--------+---------+ + + + | 05/08/ | Office | Neurology | Garth Vinson MD | | | 2019 | Visit | | [address] | | | | | | [place], [place] | | | | | | [address] | | | | | | | | +--------+---------+ + + + documented as of this encounter Visit Diagnoses Not on filedocumented in this encounter"
--- OUTSIDE RECORDS SUMMARY | ~2019-09-12 | XMS | Encounter Summary ---
Demographics + + + | Address | [address] [facility] | | | [place] [address] | + + + | Home Phone | | + + + | Preferred Language | Unknown | + + + | Marital Status | | + + + | Yarsani Affiliation | 1077 | + + + [...] Team Providers + +------+ + | Care Integration Director Name | Role | Phone | + +------+ + PCP | Unavailable | + +------+ + Encounter Details +--------+ + + + + | Date | Type | Department | Care Team | Description | +--------+ + + + + | 05/05/ | Hospital | [facility] | Boris Medeiros | | | 2013 | Encounter | HOSPITAL OBSTETRICS | [address] | | | | | [address] | [address] | | | | | [place], [place] | [place] | | | | | [address] | [address] | | | | | [phone] | [phone] | | | | | | | [...] | | | | | | [place] [address] | | | | | | [phone] | | | | | | | [...]
--- OUTSIDE RECORDS SUMMARY | ~2019-09-12 | XMS | Encounter Summary ---
Demographics + + + | Address | [address] [facility] | | | [place] [address] | + + + | Home Phone [...] Team Providers + +------+ + | Care Instructor Knitting Name | Role | Phone | + [...] | | | | [place] | [address] | | | | | [address] | [phone] | | | | | [phone] | | | +--------+ + + + [...] | | | | | | [place] [address] | | | | | | [phone] | | | | | | | | +--------+---------+ + + + | 05/08/ | Office | Neurology | Garth Vinson MD | | | 2019 | Visit | | [address] | | | | | | [place] | | | | | | [phone] | | | | | | | | +--------+---------+ + + + documented as of this encounter Visit Diagnoses Not on filedocumented in this encounter"
--- OUTSIDE RECORDS SUMMARY | ~2019-09-12 | XMS | Encounter Summary ---
Demographics + + + | Address | [address] | | | [place] [address] | + + + | Home Phone | | + + + | Preferred Language | Unknown | + + + | Marital Status | | + + + | Yazdanism Affiliation | 1077 | + + + | Race | Unknown | + + + | Ethnic Group | Unknown | + + + Author + + + | Author | [facility] | | | and [place] | + + + | Organization | [facility] | | [...] Team Providers + +------+ + | Care Auto Claim Representative Name | Role | Phone | + [...] | | | [place], [place] | [address] | | | | | [address] | [phone] | | | | | [phone] | | | +--------+ + + + [...] | | | | | | [place] [address] | | | | | | [phone] | | | | | | | | +--------+---------+ + + + | 05/08/ | Office | Neurology | Garth Vinson MD | | | 2019 | Visit | | [address] | | | | | | [place] | | | | | | [address] | | | | | | | | +--------+---------+ + + + documented as of this encounter Visit Diagnoses Not on filedocumented in this encounter"
--- OUTSIDE RECORDS SUMMARY | ~2019-09-12 | XMS | Encounter Summary ---
Demographics + + + | Address | [address] | | | [place] [address] | + + + | Home Phone | | + + + | Preferred Language | Unknown | + + + | Marital Status | | + + + | Sabianism Affiliation | 1077 | + + + [...] Providers + +------+ + | Care Retail Clerk Name | Role | Phone | + [...] | | | [place] | [address] | | | | | [address] | | | | | | [phone] | | | +--------+ + + + [...] | | | | | | [place] [address] | | | | | | [phone] | | | | | | | | +--------+---------+ + + + | 05/08/ | Office | Neurology | Garth Vinson MD | | | 2019 | Visit | | [address] | | | | | | [place], [place] | | | | | | [address] | | | | | | | | +--------+---------+ + + + documented as of this encounter Visit Diagnoses Not on filedocumented in this encounter"
--- OUTSIDE RECORDS SUMMARY | ~2019-09-12 | XMS | Encounter Summary ---
Demographics + + + | Address | [address] [facility] | | | [place] [address] | + + + | Home Phone [...] Team Providers + +------+ + | Care Fitness Centre Manager Name | Role | Phone | [...] | | | | [place] | [address] | | | | | [address] | [phone] | | | | | [phone] | | | +--------+ + + + [...] | | | | | | [place] [address] | | | | | | [phone] | | | | | | | | +--------+---------+ + + + | 05/08/ | Office | Neurology | Garth Vinson MD | | | 2019 | Visit | | [address] | | | | | | [place] | | | | | | [address] | | | | | | | | +--------+---------+ + + + documented as of this encounter Visit Diagnoses Not on filedocumented in this encounter"
--- OUTSIDE RECORDS SUMMARY | ~2019-09-12 | XMS | Encounter Summary ---
Demographics + + + | Address | [address] [facility] | | | [place] [address] | + + + | Home Phone [...] Team Providers + +------+ + | Care Agricultural Loan Officer Name | Role | Phone | [...] | | | | [place], [place] | [address] | | | | | [address] | [phone] | | | | | [phone] | | | +--------+ + + + [...] | | | | | | [place] [address] | | | | | | [phone] | | | | | | | | +--------+---------+ + + + | 05/08/ | Office | Neurology | Garth Vinson MD | | | 2019 | Visit | | [address] | | | | | | [place] | | | | | | [address] | | | | | | | [...]
--- OUTSIDE RECORDS SUMMARY | ~2019-09-12 | XMS | Encounter Summary ---
Demographics + + + | Address | [address] [facility] | | | [place] [address] | + + + | Home Phone [...] Team Providers + +------+ + | Care Cooker Soda Name | Role | Phone | + [...] | | | [place], [place] | [address] | | | | | [address] | [phone] | | | | | [phone] | | | +--------+ + + + [...] | | | | | | [place] [address] | | | | | | [phone] | | | | | | | | +--------+---------+ + + + | 05/08/ | Office | Neurology | Garth Vinson MD | | | 2019 | Visit | | [address] | | | | | | [place] | | | | | | [address] | | | | | | | | +--------+---------+ + + + documented as of this encounter Visit Diagnoses Not on filedocumented in this encounter"
--- OUTSIDE RECORDS SUMMARY | ~2019-09-12 | XMS | Encounter Summary ---
Demographics + + + | Address | [address] [facility] | | | [place] [address] | + + + | Home Phone [...] Team Providers + +------+ + | Care Graphic User Interface Designer Name | Role | Phone | + [...] | | | | [place] | [address] | | | | | [address] | [phone] | | | | | [phone] | | | +--------+ + + + [...] | | | | | | [place] [address] | | | | | | [phone] | | | | | | | | +--------+---------+ + + + | 05/08/ | Office | Neurology | Garth Vinson MD | | | 2019 | Visit | | [address] | | | | | | [place] | | | | | | [phone] | | | | | | | | +--------+---------+ + + + documented as of this encounter Visit Diagnoses Not on filedocumented in this encounter"
--- OUTSIDE RECORDS SUMMARY | ~2019-09-12 | XMS | Encounter Summary ---
Demographics + + + | Address | [address] [facility] | | | [place] [address] | + + + | Home Phone [...] Team Providers + +------+ + | Care Lead Java Software Engineer Name | Role | Phone | [...] [address] | | | | | [place] [address] | | | | | | [phone] | | | +--------+ + + + [...] | | | | | | [place] [address] | | | | | | [phone] | | | | | | | | +--------+---------+ + + + | 05/08/ | Office | Neurology | Garth Vinson MD | | | 2020 | Visit | | [address] | | | | | | [place] | | | | | | [phone] | | | | | | | | +--------+---------+ + + + documented as of this encounter Visit Diagnoses Not on filedocumented in this encounter"
--- OUTSIDE RECORDS SUMMARY | ~2019-09-12 | XMS | Encounter Summary ---
Demographics + + + | Address | [address] [facility] [facility] | | | [place] [address] | + + + | Home Phone [...] Providers + +------+ + | Care Director Dance Name | Role | Phone | + +------+ + PCP | Unavailable | + +------+ + Encounter Details +--------+ + + + + | Date | Type | Department | Care Team | Description | +--------+ + + + + | 06/03/ | Hospital | [facility] | [place] | | | 2012 | Encounter | [facility] | [address] | | | | | [facility] [address] | [address] | | | | | [address] [facility], | [facility] | | | | | [place] [address] | [address] | | | | | [phone] | [phone] | | | | | | | [...] | | | | | | [place] [address] | | | | | | [phone] | | | | | | | | +--------+---------+ + + + | 05/08/ | Office | Neurology | Garth Vinson MD | | | 2019 | Visit | | [address] | | | | | | [place] | | | | | | [address] | | | | | | | | +--------+---------+ + + + documented as of this encounter Visit Diagnoses Not on filedocumented in this encounter"
--- OUTSIDE RECORDS SUMMARY | ~2019-09-12 | XMS | Encounter Summary ---
Demographics + + + | Address | [address] [facility] [facility] | | | [place] [address] | + + + | Home Phone [...] Team Providers + +------+ + | Care Microstrategy Reports Developer Name | Role | Phone | [...] [place] | | | | | [place] | [place], [place] | | | | | [address] | [address] | | | | | [phone] | [phone] | | | | | | | [...] | | | | | | [place] [address] | | | | | | [phone] | | | | | | | | +--------+---------+ + + + | 05/08/ | Office | Neurology | Garth Vinson MD | | | 2020 | Visit | | [address] | | | | | | [place] | | | | | | [address] | | | | | | | | +--------+---------+ + + + documented as of this encounter Visit Diagnoses Not on filedocumented in this encounter"
--- OUTSIDE RECORDS SUMMARY | ~2019-09-12 | XMS | Encounter Summary ---
Demographics + + + | Address | [address] [facility] | | | [place] [address] | + + + | Home Phone [...] Team Providers + +------+ + | Care Grip Name | Role | Phone | + [...] | | | [place], [place] | [address] | | | | | [address] | [phone] | | | | | [phone] | | | +--------+ + + + [...] | | | | | | [place] [address] | | | | | | [phone] | | | | | | | | +--------+---------+ + + + | 05/08/ | Office | Neurology | Garth Vinson MD | | | 2019 | Visit | | [address] | | | | | | [place] | | | | | | [address] | | | | | | | | +--------+---------+ + + + documented as of this encounter Visit Diagnoses Not on filedocumented in this encounter"
--- OUTSIDE RECORDS SUMMARY | ~2019-09-12 | XMS | Encounter Summary ---
Demographics + + + | Address | [address] [facility] | | | [place] [address] | + + + | Home Phone [...] Team Providers + +------+ + | Care Marketing Information Coordinator Name | Role | Phone | [...] | | | | [place] | [address] | | | | | [address] | [phone] | | | | | [phone] | | | +--------+ + + + [...] | | | | | | [place] [address] | | | | | | [phone] | | | | | | | | +--------+---------+ + + + | 05/08/ | Office | Neurology | Garth Vinson MD | | | 2019 | Visit | | [address] | | | | | | [place], [place] | | | | | | [address] | | | | | | | | +--------+---------+ + + + documented as of this encounter Visit Diagnoses Not on filedocumented in this encounter"
--- OUTSIDE RECORDS SUMMARY | ~2019-09-12 | XMS | Encounter Summary ---
Demographics + + + | Address | [address] [facility] | | | [place] [address] | + + + | Home Phone [...] Team Providers + +------+ + | Care Rug Setter [place] Name | Role | Phone | + [...] [place] | | | | | [address] [place], | [address] | | | | | [place] [address] | | | | | | [phone] | | | +--------+ + + + [...] | | | | | | [place] [address] | | | | | | [phone] | | | | | | | | +--------+---------+ + + + | 05/08/ | Office | Neurology | Garth Vinson MD | | | 2019 | Visit | | [address] | | | | | | [place], [place] | | | | | | [address] | | | | | | | | +--------+---------+ + + + documented as of this encounter Visit Diagnoses Not on filedocumented in this encounter"
--- OUTSIDE RECORDS SUMMARY | ~2019-09-12 | XMS | Encounter Summary ---
Demographics + + + | Address | [address] [facility] | | | [place] [address] | + + + | Home Phone [...] Team Providers + +------+ + | Care Instrument Mechanic Name | Role | Phone | [...] [place] | | | | | [address] [place], | [address] | | | | | [place] [address] | | | | | | [phone] | | | +--------+ + + + [...] | | | | | | [place] [address] | | | | | | [phone] | | | | | | | | +--------+---------+ + + + | 05/08/ | Office | Neurology | Garth Vinson MD | | | 2019 | Visit | | [address] | | | | | | [place] | | | | | | [address] | | | | | | | | +--------+---------+ + + + documented as of this encounter Visit Diagnoses Not on filedocumented in this encounter"
--- OUTSIDE RECORDS SUMMARY | ~2019-09-12 | XMS | Encounter Summary ---
Demographics + + + | Address | [address] [facility] | | | [place] [address] | + + + | Home Phone [...] Team Providers + +------+ + | Care Home Based Assistant Name | Role | Phone | [...] [address] | | | | | [place] [address] | | | | | | [phone] | | | +--------+ + + + [...] | | | | | | [place] [address] | | | | | | [phone] | | | | | | | | +--------+---------+ + + + | 05/08/ | Office | Neurology | Garth Vinson MD | | | 2020 | Visit | | [address] | | | | | | [place] | | | | | | [phone] | | | | | | | | +--------+---------+ + + + documented as of this encounter Visit Diagnoses Not on filedocumented in this encounter"
--- OUTSIDE RECORDS SUMMARY | ~2019-09-12 | XMS | Encounter Summary ---
Demographics + + + | Address | [address] [facility] | | | [place] [address] | + + + | Home Phone [...] Team Providers + +------+ + | Care Backer Up Name | Role | Phone | + [...] [place] | | | | | | [address] | (Fax) | | | | | [phone] | | | +--------+ + + + [...] | | | | | | [place] [address] | | | | | | [phone] | | | | | | | | +--------+---------+ + + + | 05/08/ | Office | Neurology | Garth Vinson MD | | | 2020 | Visit | | [address] | | | | | | [place] | | | | | | [address] | | | | | | | | +--------+---------+ + + + documented as of this encounter Visit Diagnoses Not on filedocumented in this encounter"
--- OUTSIDE RECORDS SUMMARY | ~2019-09-12 | XMS | Encounter Summary ---
Demographics + + + | Address | [address] [facility] | | | [place] [address] | + + + | Home Phone [...] Team Providers + +------+ + | Care Peoplesoft Crm Developer Name | Role | Phone | [...] Testing (EEG) | | 2019 | | [facility] | | | | | | CLINIC [address] | | | | | | [address] [place], | | | | | | [place] [address] | | | | | | [phone] | | | +--------+ + + + [...] | | | | | | [place] [address] | | | | | | [phone] | | | | | | | | +--------+---------+ + + + | 05/08/ | Office | Neurology | Garth Vinson MD | | | 2019 | Visit | | [address] | | | | | | [place] | | | | | | [address] | | | | | | | | +--------+---------+ + + + documented as of this encounter Visit Diagnoses Not on filedocumented in this encounter"
--- OUTSIDE RECORDS SUMMARY | ~2019-09-12 | XMS | Encounter Summary ---
Demographics + + + | Address | [address] [facility] | | | [place] [address] | + + + | Home Phone [...] Providers + +------+ + | Care Nuclear Physicist Name | Role | Phone | + [...] [address] | | | | | [place] [address] | | | | | | [phone] | | | +--------+ + + + [...] | | | | [address] [facility] [place], | | | | | | [place] [address] | | | | | | [phone] | | | | | | | | +--------+---------+ + + + | 05/08/ | Office | Neurology | Garth Vinson MD | | | 2020 | Visit | | [address] | | | | | | [place] | | | | | | [address] | | | | | | | [...]
--- OUTSIDE RECORDS SUMMARY | ~2019-09-12 | XMS | Encounter Summary ---
Demographics + + + | Address | [address] [facility] | | | [place] [address] | + + + | Home Phone [...] Team Providers + +------+ + | Care Make Up Girl Name | Role | Phone | + [...] | | | | [place] | [address] | | | | | [address] | [phone] | | | | | [phone] | | | +--------+ + + + [...] | | | | | | [place] [address] | | | | | | [phone] | | | | | | | | +--------+---------+ + + + | 05/08/ | Office | Neurology | Garth Vinson MD | | | 2019 | Visit | | [address] | | | | | | [place] | | | | | | [address] | | | | | | | | +--------+---------+ + + + documented as of this encounter Visit Diagnoses Not on filedocumented in this encounter"
--- OUTSIDE RECORDS SUMMARY | ~2019-09-12 | XMS | Encounter Summary ---
Demographics + + + | Address | [address] [facility] | | | [place] [address] | + + + | Home Phone | | + + + | Preferred Language | Unknown | + + + | Marital Status | | + + + | Anabaptism Affiliation | 1077 | + + + [...] Team Providers + +------+ + | Care Motorcycle Delivery Driver Name | Role | Phone | [...] [address] | | | | | [place] [address] | | | | | | [phone] | | | +--------+ + + + [...] | | | | | | [place] [address] | | | | | | [phone] | | | | | | | | +--------+---------+ + + + | 05/08/ | Office | Neurology | Garth Vinson MD | | | 2020 | Visit | | [address] | | | | | | [place] | | | | | | [phone] | | | | | | | | +--------+---------+ + + + documented as of this encounter Visit Diagnoses Not on filedocumented in this encounter"
--- OUTSIDE RECORDS SUMMARY | ~2019-09-12 | XMS | Encounter Summary ---
Demographics + + + | Address | [address] [facility] | | | [place] [address] | + + + | Home Phone [...] Team Providers + +------+ + | Care Apparel Patternmaker Name | Role | Phone | + [...] | | | | [place], [place] | [address] | | | | | [address] | | | | | | [phone] | | | +--------+ + + + [...] | | | | | | [place] [address] | | | | | | [phone] | | | | | | | | +--------+---------+ + + + | 05/08/ | Office | Neurology | Garth Vinson MD | | | 2019 | Visit | | [address] | | | | | | [place] | | | | | | [address] | | | | | | | [...] + + + + + + | Clarity | CLEAR | CLEAR | EXTERNAL | | | | | | LAB | | + + + + + + | Color | YELLOW | YELLOW | EXTERNAL | | | | | | LAB | | + + + + + + | Specific | 1.01 | 1.005 - 1.030 | EXTERNAL | | | [place], | | | LAB | | | [...] + + + + + | WBC UA | NONE SEEN | </= 5 /HPF | EXTERNAL | | | | | | LAB | | + + + + + + | RBC COUNT | NONE SEEN | </= 5 PER [...] + + + + + + | SQUAMOUS | NONE SEEN | FEW /LPF | EXTERNAL | | | EPITHELIAL | | | LAB | | | UA | | | | | + + [...]
--- OUTSIDE RECORDS SUMMARY | ~2019-09-12 | XMS | Encounter Summary ---
Demographics + + + | Address | [address] [facility] | | | [place] [address] | + + + | Home Phone [...] Team Providers + +------+ + | Care Budder Name | Role | Phone | + [...] | | | | [place] | [address] | | | | | [address] | | | | | | [phone] | | | +--------+ + + + [...] | | | | | | [place] [address] | | | | | | [phone] | | | | | | | | +--------+---------+ + + + | 05/08/ | Office | Neurology | Garth Vinson MD | | | 2019 | Visit | | [address] | | | | | | [place] | | | | | | [phone] | | | | | | | [...] | focal mass lesion is evident. JOB: [id number] | | | Read By: JOSEPH WILEY [...] mass | | lesion is evident. JOB: [id number] Read By: JOSEPH WILEY MD Released | [...] is evident. | | | | JOB: [id number] | | | |Read By: JOSEPH WILEY MD | | | |Released By: JOSEPH WILEY MD | |Date: 02/06/2015 20:20 | | | | | + + documented in this encounter Visit Diagnoses Not on filedocumented in this encounter"
--- OUTSIDE RECORDS SUMMARY | ~2019-09-12 | XMS | Encounter Summary ---
Demographics + + + | Address | [address] [facility] | | | [place] [address] | + + + | Home Phone [...] Team Providers + +------+ + | Care Spindle Carver Name | Role | Phone | + [...] | | | | [place] | [place], [place] | | | | | [address] | [address] | | | | | [phone] | [phone] | | | | | | | [...] | | | | | | [place] [address] | | | | | | [phone] | | | | | | | | +--------+---------+ + + + | 05/08/ | Office | Neurology | Garth Vinson MD | | | 2019 | Visit | | [address] | | | | | | [place] | | | | | | [address] | | | | | | | | +--------+---------+ + + + documented as of this encounter Visit Diagnoses Not on filedocumented in this encounter"
--- OUTSIDE RECORDS SUMMARY | ~2019-09-12 | XMS | Encounter Summary ---
Demographics + + + | Address | [address] [facility] | | | [place] [address] | + + + | Home Phone | | + + + | Preferred Language | Unknown | + + + | Marital Status | | + + + | Holiness Affiliation | 1077 | + + + | Race | Unknown | + + + | Ethnic Group | Unknown | + + + Author + + + | Author | [facility] | | | and [place] | + + + | Organization | [facility] | | [...] Team Providers + +------+ + | Care Acid Conditioner Name | Role | Phone | + [...] | | | | DEPARTMENT [address] | [address] | | | | | [address] [place] | [phone] | | | | | [place] | | | | | | [address] | | | | | | [phone] | | | +--------+ + + + [...] | | | | | | [place] [address] | | | | | | [phone] | | | | | | | | +--------+---------+ + + + | 05/08/ | Office | Neurology | Garth Vinson MD | | 2019 | Visit | | [address] | | | | | | [place] | | | | | | [phone] | | | | | | | [...] D: | | | 06/29/2016 JOB #: [id number] Read By: KIM HOOKER MD | | [...] | process. No interval change. JOB #: [id number] Read By: KIM HOOKER | | Released [...] | | | | | |JOB #: [id number] | | | |Read By: KIM HOOKER MD | | | |Released By: KIM HOOKER MD | |Date: 06/29/2016 21:38 | | | | | + + documented in this encounter Visit Diagnoses Not on filedocumented in this encounter"
--- OUTSIDE RECORDS SUMMARY | ~2019-09-12 | XMS | Encounter Summary ---
Demographics + + + | Address | [address] [facility] | | | [place] [address] | + + + | Home Phone [...] Providers + +------+ + | Care Assistant Account Manager Name | Role | Phone | [...] | | | | [place], [place] | [address] | | | | | [address] | | | | | | [phone] | | | +--------+ + + + [...] | | | | | | [place] [address] | | | | | | [phone] | | | | | | | | +--------+---------+ + + + | 05/08/ | Office | Neurology | Garth Vinson MD | | | 2019 | Visit | | [address] | | | | | | [place] | | | | | | [address] | | | | | | | [...] - 1.030 | EXTERNAL | | | [place], | | | LAB | | | [...]
--- OUTSIDE RECORDS SUMMARY | ~2019-09-12 | XMS | Encounter Summary ---
Demographics + + + | Address | [address] [facility] | | | [place] [address] | + + + | Home Phone [...] Team Providers + +------+ + | Care Benzene Operator Name | Role | Phone | [...] | | | [place], [place] | [address] | | | | | [address] | [phone] | | | | | [phone] | | | +--------+ + + + [...] | | | | | | [place] [address] | | | | | | [phone] | | | | | | | | +--------+---------+ + + + | 05/08/ | Office | Neurology | Garth Vinson MD | | | 2019 | Visit | | [address] | | | | | | [place] | | | | | | [address] | | | | | | | | +--------+---------+ + + + documented as of this encounter Visit Diagnoses Not on filedocumented in this encounter"
--- OUTSIDE RECORDS SUMMARY | ~2019-09-12 | XMS | Encounter Summary ---
Demographics + + + | Address | [address] [facility] | | | [place] [address] | + + + | Home Phone [...] Team Providers + +------+ + | Care Waste Reduction Coordinator Name | Role | Phone | [...] | | | | DEPARTMENT [address] | [address] | | | | | [address] [place] | [phone] | | | | | [place] | | | | | | [address] | | | | | | [phone] | | | +--------+ + + + [...] | | | | | | [place] [address] | | | | | | [phone] | | | | | | | | +--------+---------+ + + + | 05/08/ | Office | Neurology | Garth Vinson MD | | | 2019 | Visit | | [address] | | | | | | [place] | | | | | | [address] | | | | | | | | +--------+---------+ + + + documented as of this encounter Visit Diagnoses Not on filedocumented in this encounter"
--- OUTSIDE RECORDS SUMMARY | ~2019-09-12 | XMS | Encounter Summary ---
Demographics + + + | Address | [address] [facility] | | | [place] [address] | + + + | Home Phone [...] Team Providers + +------+ + | Care Pound Attendant Name | Role | Phone | [...] Treatment Order | | 2019 | | [facility] | | (physical therapy) | | | | CLINIC [address] | | | | | | [address] [place], | | | | | | [place] [address] | | | | | | [phone] | | | +--------+ + + + [...] | | | | | | [address] [facility] [place], | | | | | | [place] [address] | | | | | | [phone] | | | | | | | | +--------+---------+ + + + | 05/08/ | Office | Neurology | Garth Vinson MD | | | 2020 | Visit | | [address] | | | | | | [place] | | | | | | [address] | | | | | | | | +--------+---------+ + + + documented as of this encounter Visit Diagnoses Not on filedocumented in this encounter"
--- OUTSIDE RECORDS SUMMARY | ~2019-09-12 | XMS | Encounter Summary ---
Demographics + + + | Address | [address] [place] | | | [place] [address] | + + + | Home Phone [...] Providers + +------+ + | Care Die Cutting Machine Operator Name | Role | Phone | + +------+ + PCP | Unavailable | + +------+ + Encounter Details +--------+ + + + + | Date | Type | Department | Care Team | Description | +--------+ + + + + | 09/10/ | [facility] | [facility] | [place], | | | 2013 | Encounter | [facility] | Hiro Mariano, | | | | | [address] [place] | [address] | | | | | [place] | [place], [place] | | | | | [address] | [address] | | | | | [phone] | [phone] | | | | | | | [...] | | | | | | [place] [address] | | | | | | [phone] | | | | | | | [...]
--- OUTSIDE RECORDS SUMMARY | ~2019-09-12 | XMS | Encounter Summary ---
Demographics + + + | Address | [address] | | | [place] [address] | + + + | Home Phone | | + + + | Preferred Language | Unknown | + + + | Marital Status | | + + + | Alevism Affiliation | 1077 | + + + | Race | Unknown | + + + | Ethnic Group | Unknown | + + + Author + + + | Author | [facility] | | | and [place] | + + + | Organization | [facility] | | [...] Team Providers + +------+ + | [facility] Worker Name | Role | Phone | [...] | | | | [address] | [address] | | | | | [address] | [phone] | | | | | [place] | | | | | | [address] | | | | | | [phone] | | | +--------+ + + + [...] | | | | | | [place] [address] | | | | | | [phone] | | | | | | | | +--------+---------+ + + + | 05/08/ | Office | Neurology | Garth Vinson MD | | | 2019 | Visit | | [address] | | | | | | [place] | | | | | | [address] | | | | | | | | +--------+---------+ + + + documented as of this encounter Visit Diagnoses Not on filedocumented in this encounter"
--- OUTSIDE RECORDS SUMMARY | ~2019-09-12 | XMS | Encounter Summary ---
Demographics + + + | Address | [address] | | | [place] [address] | + + + | Home Phone [...] Providers + +------+ + | Care Director Clinical Operations Name | Role | Phone | + +------+ + PCP | Unavailable | + +------+ + Encounter Details +--------+ + + + + | Date | Type | Department | Care Team | Description | +--------+ + + + + | 08/27/ | Hospital | [facility] | Aby Bello, | Syncope and | | 2013 - | Encounter | [facility] | [address] | collapse; D-dimer, | | | | CLINICAL DECISION | [place] [address] | elevated; GERD | | 08/30/ | | [address] | [phone] | (gastroesophageal | | 2013 | | [place], [place] | | reflux disease); | | | | [phone] | | Lactate blood | | | | [phone] | | increase; Left flank | | [...] | | | | | | failure) ([facility]) | +--------+ + + + + Social [...] 08/30/141939 Date of Service: 08/30/141039 Status: Signed Computer Numerical Control Operator: García Ferrara MD (Physician) [facility]: Hospitalist Discharge Summary Date of Admission: [...] episodes of seizures, F ru2000, treated in [facility]. Three weeks later had the second episode however not on antiepileptic medications. The patient has left flank pain for a week and is currently on ci profloxacin for urinary tract infection. She still has 3 more days of antibiotics left. The patient left [place], [place] last night and was halting at [place]. She had epigastric pr essure localized without radiation to the left arm, jaw, intrascapular area. It felt similar to her acid reflux pain. She had nausea without vomiting. She took Tums and felt better, an d then slept. This morning they drove to [place] and in the afternoon they were at the [place]. There she had told her that she had the same epigastric pressure with nausea and di d not feel well. Mild shortness of breath. This lasted for a few minutes. Subsequently she f elt better. They were heading towards [place] walking out of the [facility] holding her husbands h and when [...] therefore as per the notes from Dr. Ramirze spoke with neurology on-call doctor trevor was placed on Topamax. The patient states she does have a neurologist in [facility] that she see s routinely and she [...] Reflux Seizures UTI (lower urinary tract infection) GRINDSTONE (hard of hearing) Hypothyroid Past Surgical History [...] range found 1.0 NM lung ventilation perfusion [[id number]] Resulted: 08/28/14917 Order Status: Completed Updated: 08/28/14922 [...] embolus. urinary tract abdomen pelvis without contrast [[id number]] Resulted: 08/28/14807 Order Status: Completed Updated: 08/28/14812 [...] hysterectomy. brain wo contrast and MRA head [[id number]] Resulted: 08/28/14 0158 Order Status: Completed Updated: [...] 28 2014 1:58AM Referring Provider Line: [phone] ID: [id number] US Lower Extremity - Venous Bilateral [[id number]] Resulted: 08/28/14 012 Order Status: Completed Updated: 08/28/14 012 Narrative: EXAM: BILATERAL LOWER EXTREMITY VENOUS ULTRASOUND EXAM DATE: 08/28/2014 01:41 AM. CLINICAL HISTORY: Elevated d-dimer. COMPARISON: None. TECHNIQUE: Real-time sonographic vascular imaging was performed by the nickel plant operator through the lower extremities utilizing both color-flow [...] Aug 28 2014 1:21AM Referring Provider Line: [phone] ID: [id number] CT Head Non-Con [[id number]] Resulted: 08/27/141832 Order Status: Completed Updated: 08/27/141838 Narrative: HISTORY:trauma, demographics unknown. TECHNIQUE: Axial noncontrast head CT. Prior examination: None. 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 Chest AP Portable [[id number]] Resulted: 08/27/141711 Order Status: Completed Updated: 08/27/141716 [...] Units Date/Time Culture, Stool (with Shiga Toxin) [[id number]] Collected: 08/27/14 183 Order Status: Completed Lab Status: Final result Updated: 08/30/14 1257 Specimen Information: Stool / Stool Specimen Description STOOL CULTURE NEGATIVE FOR SHIGA TOXIN TYPE 1 AND 2. CULTURE Result: NEGATIVE FOR SALMONELLA, SHIGELLA AND CAMPYLOBACTER CULTURE Result: IF A YERSINIA OR VIBRIO IS SUSPECTED, PLEASE CONTACT THE MICRO LAB FOR SPECIAL TESTING . CULTURE Result: Testing performed at [facility], [address] [place] [address] C diff toxin by PCR (TAT 3 hr in house) [[id number]] Collected: 08/27/14 183 Order Status: Completed Lab Status: Final result Updated: 08/27/14 1939 Specimen Information: Stool / Stool Toxigenic C Difficile NEGATIVE Comment: Testing performed at [facility] [place] [address] 027 NAP1 BI 027 NAP1 BI PRESUMPTIVE NEGATIVE Comment: Detection of 027 NAP1 BI strains of C. difficile is presumptive and for epidemiologica l purposes and not intended to guide or monitor treatment for C. difficile infections. Testing performed at [facility];[address] [place] [address] Impression 1. Sinus rhythm. 2. A 2-dimensional [...] arvin please be seen this week in [facility] up on rash and this admission and seizures please make an appt with your neurologist in [facility] to be seen this week in follow [...] are the prescriptions that you need to [facility]. You may get the following medications from [...] Management by Derrick Hernandez RN at 08/30/14 7022 Author: Derrick Hernandez RN Service: (none) Author Type: Registered Nurse Filed: 08/30/14 4608 Date of Service: 08/30/141228 Status: Signed Computer Numerical Control Operator: Derrick Hernandez RN (Registered Nurse) 08/30/147 Discharge Planning Evaluation Admitting Diagnosis Seizure w/collapse, [...] DCP: home with providing transportation back to [place], [place]. DERRICK HERNANDEZ Jeremi Vail, Provider Unknown - 08/30/2014 9:32 AM PST Progress Notes by Elsie Figueroa at 08/30/14931 Author: Elsie Figueroa Service: (none) Author Type: Media Aid Filed: 08/30/14931 Date of Service: 08/30/14931 Status: Signed Computer Numerical Control Operator: Elsie Figueroa (Railroad Mechanic) I have met with Mrs. Donnelly in [...] 1127 Date of Service: 08/30/14929 Status: Signed Computer Numerical Control Operator: Ne L Wells, PT (Physical Therapist) 08/30/14 0930 PT Last Visit PT Received On 08/30/14 Reason for Treatment Deconditioning Requires PT Follow Up Yes Follow up PT Only? No Assistance Required 1 person Skilled Helper Needed No Precautions Other Precautions fall risk Cognition Overall Cognitive Status WFL Orientation Level Oriented;Other (Comment) (a little forgetful today-repeats telgokm-jqwxenie-axguztcqhn) Bed Mobility Supine to Sit Supervision;Patient appears [...] 08/30/14533 Date of Service: 08/30/14531 Status: Signed Computer Numerical Control Operator: Sarahy Jiang RN (Registered Nurse) Pt has been sleeping all night, no complaints of itching. Will continue to monitor. onver laurie Transaction, Provider Unknown - 08/29/2014 6:39 PM PST Nurse Progress Note by Mayra Acosta RN at 08/29/141838 Author: Mayra Acosta RN Service: (none) Author Type: Registered Nurse Filed: 08/29/141840 Date of Service: 08/29/141838 Status: Signed Computer Numerical Control Operator: Mayra Acosta RN (Registered Nurse) Pt's rash [...] 1240 Date of Service: 08/29/141228 Status: Signed Computer Numerical Control Operator: Tk Ramirez MD (Physician) [facility]: Hospitalist Progress Note Hospital Day: LOS: 2 days Post-Op Day: * No surgery found * SUBJECTIVE Patient Summary: admission H and P Dr. eBllo:"HISTORY OF PRESENT ILLNESSdiabetes arsenio litus type , hertension, testing acid reflux, hypothyroidism. The patient had 2 episodes of seizures, November 2000, treated in [facility]. Three weeks later had the second episode kamilah coleman not on antiepileptic medications. The patient has left flank pain for a week and is curr ently on ciprofloxacin for urinary tract infection. She still has 3 more days of antibiotics left. The patient left [place] last night and was halting at [place]. She had epigast ninfa pressure localized without radiation to the left arm, jaw, intrascapular area. It felt s imilar to her acid reflux pain. She had nausea without vomiting. She took Tums and felt bett er, and then slept. This morning they drove to [place] and in the afternoon [facility] were at [facility]. There she had told her that she had the same epigastric pressure with nausea and did not feel well. Mild shortness of breath. This lasted for a few minutes. Subsequently she felt better. They were heading towards [place] walking out of the casino holding her [...] 28 2014 1:21AM Referring Provider Line : [phone] ID: [id number] Ct Urinary Tract Abdomen Pelvis [...] Aug 28 2014 1:58AM Referring Provider Line: [phone] TE ID: [id number] ASSESSMENT & PLAN #1. [...] cannot drive, pt needs to report to [place] at [place] #2. Elevated d-dimer - VQ [...] Date of Service: 08/28/14 1303 Status: Addendum Computer Numerical Control Operator: Tk Ramirez MD (Physician) Related Notes: Original Note by Tk Ramirez MD (Physician) filed at 08/28/14 1311 [facility]: Hospitalist Progress Note Hospital Day: LOS: 1 day Post-Op Day: * No surgery found * SUBJECTIVE Patient Summary: admission H and P Dr. Bello:"HISTORY OF PRESENT ILLNESSdiabetes arsenio litus type , hypertension, acid reflux, hypothyroidism. The patient had 2 episodes of seizur es, November 2000, treated in [facility]. Three weeks later had the second episode however no t on antiepileptic medications. The patient has left flank pain for a week and is currently on ciprofloxacin for urinary tract infection. She still has 3 more days of antibiotics left. The patient left [place] last night and was halting at [place]. She had epigastric pr essure localized without radiation to the left arm, jaw, intrascapular area. It felt similar to her acid reflux pain. She had nausea without vomiting. She took Tums and felt better, an d then slept. This morning they drove to [place] and in the afternoon they were at the [place]. There she had told her that she had the same epigastric pressure with nausea and di d not feel well. Mild shortness of breath. This lasted for a few minutes. Subsequently she f elt better. They were heading towards [place] walking out of the casino holding her [...] 28 2014 1:21AM Referring Provider Line : [phone] ID: [id number] Ct Urinary Tract Abdomen Pelvis [...] Aug 28 2014 1:58AM Referring Provider Line: [phone] TE ID: [id number] ASSESSMENT & PLAN #1. [...] to cannot drive, needs to report to [place] at [facility] #2. Elevated d-dimer - VQ [...] Date of Service: 08/28/14 1015 Status: Signed Computer Numerical Control Operator: Ne Pozo PT (Physical Therapist) 08/28/14 1015 [...] safety during I-ADL's/ADL's Prior Function Level of [place] Independent with ADLs;Independent with IADLs;Driving in community;Co [...] total ly independent with self care- mobility- dietary services director and no complaints; during eval her Tinetti [...] 08/28/14602 Date of Service: 08/28/14555 Status: Signed Computer Numerical Control Operator: Olga Ibarra RN (Registered Nurse) Patient arrived [...] 08/28/14147 Date of Service: 08/28/14147 Status: Signed Computer Numerical Control Operator: Opal Gore RPH (Pharmacist) Clinical Pharmacy Note: [...] | | | | | | [place] [address] | | | | | | [phone] | | | | | | | | +--------+---------+ + + + | 05/08/ | Office | Neurology | Garth Vinson MD | | | 2019 | Visit | | [address] | | | | | | [place] | | | | | | [address] | | | | | | | [...] | | | Fingerstick | performed at [facility];[address] | | LAB | | | | [address];[place] | | | | | | [address] | | | | + + + [...] | | | Fingerstick | performed at [facility];[address] | | LAB | | | | [address];[place] | | | | | | [address] | | | | + + + [...] | | | Fingerstick | performed at [facility];[address] | | LAB | | | | [address];[place], [place] | | | | | | [address] | | | | + + + [...] | | | Fingerstick | performed at [facility];[address] | | LAB | | | [address];[place], [place] | | | | | | [address] | | | | + + + [...] | | | Fingerstick | performed at [facility];[address] | | LAB | | | | [address];[place], [place] | | | | | | [address] | | | | + + + [...] | | | Fingerstick | performed at [facility];[address] | | LAB | | | | [address];[place] | | | | | | [address] | | | | + + + [...] EXTERNAL | | | | performed at [facility], [address] | | LAB | | | | [address], | | | | | | [place] [address] | | | | + + + + + + | RED CELL | 3.77Comment: Testing | 3.70 - 5.10 | EXTERNAL | | | COUNT | performed at [facility], [address] | M/uL | LAB | | | | [address], | | | | | | [place] [address] | | | | + + + + + + | Hgb | 12.0Comment: Testing | 11.3 - 15.5 | EXTERNAL | | | | performed at [facility], [address] | g/dL | LAB | | | | [address], | | | | | | [place] [address] | | | | + + + + + + | Hematocrit, | 33.9 (L)Comment: Testing | 34.0 - 46.0 % | EXTERNAL | | | POC | performed at [facility], [address] | | LAB | | | | [address], | | | | | | [place] [address] | | | | + + + + + + | MCV | 89.9Comment: Testing | 80.0 - 100.0 fl | EXTERNAL | | | | performed at [facility], [address] | | LAB | | | | [address], | | | | | | [place] [address] | | | | + + + + + + | MCH | 31.8Comment: Testing | 27.0 - 34.0 pg | EXTERNAL | | | | performed at [facility], [address] | | LAB | | | | [address], | | | | | | [place] [address] | | | | + + + + + + | MCHC | 35.4Comment: Testing | 32.0 - 35.5 | EXTERNAL | | | | performed at [facility], [address] | g/dL | LAB | | | | [address], | | | | | | [place] [address] | | | | + + + + + + | RDW-CV | 40.7Comment: Testing | 37 - 53 fl | EXTERNAL | | | | performed at [facility], [address] | | LAB | | | | [address], | | | | | | [place] [address] | | | | + + + + + + | Platelet | 293Comment: Testing | 150 - 400 K/uL | EXTERNAL | | | Count | performed at [facility], [address] | | LAB | | | Plasma | [address], | | | | | | [place] [address] | | | | + + + + + + | MPV | 8.7Comment: Testing | fl | EXTERNAL | | | | performed at [facility], [address] | | LAB | | | | [address], | | | | | | [place] [address] | | | | + + + [...] | | | | | [place] [address] | | | | + + + [...] EXTERNAL | | | | performed at [facility], [address] | | LAB | | | | [address], | | | | | | [place] [address] | | | | + + + [...] | | | | | [place] [address] | | | | + + + + + + | K | 3.4 (L)Comment: Testing | 3.5 - 4.9 | EXTERNAL | | | | performed at [facility], [address] | mmol/L | LAB | | | | [address], | | | | | | [place] [address] | | | | + + + + + + | Cl | 107Comment: Testing | 99 - 109 mmol/L | EXTERNAL | | | | performed at [facility], [address] | | LAB | | | | [address], | | | | | | [place] [address] | | | | + + + + + + | CO2 | 24Comment: Testing | 23 - 32 mmol/L | EXTERNAL | | | | performed at [facility], [address] | | LAB | | | | [address], | | | | | | [place] [address] | | | | + + + + + + | Anion Gap | 10Comment: Testing | 5 - 20 mmol/L | EXTERNAL | | | | performed at [facility], [address] | | LAB | | | | [address], | | | | | | [place] [address] | | | | + + + + + + | Glucose, | 108 (H)Comment: Testing | 65 - 99 mg/dL | EXTERNAL | | | Fasting | performed at [facility], [address] | | LAB | | | | [address], | | | | | | [place] [address] | | | | + + + + + + | BUN | 17Comment: Testing | 8 - 25 mg/dL | EXTERNAL | | | | performed at [facility], [address] | | LAB | | | | [address], | | | | | | [place] [address] | | | | + + + + + + | Creatinine | 0.73Comment: Testing | 0.50 - 1.00 | EXTERNAL | | | | performed at [facility], [address] | mg/dL | LAB | | | | [address], | | | | | | [place] [address] | | | | + + + + + + | BUN/Creatin | 23Comment: Testing | | EXTERNAL | | | ine Ratio | performed at [facility], [address] | | LAB | | | | [address], | | | | | | [place] [address] | | | | + + + + + + | Calcium | 8.7Comment: Testing | 8.5 - 10.2 | EXTERNAL | | | | performed at [facility], [address] | mg/dL | LAB | | | | [address], | | | | | | [place] [address] | | | | + + + [...] | | | | | | [place] [address] | | | | + + + [...] | | | Fingerstick | performed at [facility];[address] | | LAB | | | | [address];[place], [place] | | | | | | [address] | | | | + + + [...] | | | Fingerstick | performed at [facility];[address] | | LAB | | | | [address];[place] | | | | | | [address] | | | | + + + [...] | | | Fingerstick | performed at [facility];[address] | | LAB | | | | [address];[place] | | | | | | [address] | | | | + + + [...] | | | ------REPORT ADDENDED------ INDICATIONS ACUTE [place]/WMA | | | ACUTE RESP FAILURE, SNCOPE, [...] 72.86 ml D-E Excursion: 1.47 cm E-F [place]: | | | 0.07 m/s EPSS: 0.45 [...] | A Ian: 0.26 m/s TV Dec [place]: 1.64 m/s2 TV Dec Time: | | | 276.68 ms TV E Ian: 0.45 m/s TV E/A Ratio: 1.71 | | | Crop Roller: COLIN Authenticated by: Elena Tafoya MD Report | | | Date/Time: 08-28-2014 17:41:09 | | + + + + + | Procedure Note | + + | Eliazar Falk Conversion - 06/11/2019 5:29 PM PDT Patient Name: DUDLEYOlu of | | : 1940 Performing Physician: Elena Tafoya | | ------REPORT | | ADDENDED------INDICATIONS ACUTE [place]/WMA ACUTE RESP FAILURE, SNCOPE, COLLAPSE, | | [...] (A-L): 27.65 ml/m2LAAs A2C: | | 17.16 ya9ITNER A-L A2C: 44.31 mlLALs A2C: 5.64 cmLAAs A4C: 17.69 ns2SOTOA A-L | | A4C: 48.18 mlLALs A4C: 5.51 cmAo Diam: 2.78 cmAV Cusp: 1.64 cmLA Diam: 3.23 | | cmLA/Ao: 1.16%FS: 48.45 %EDV(Teich): 91.08 mlEF(Teich): 79.99 %ESV(Teich): | | 18.21 mlIVSd: 0.59 cmIVSs: 0.92 cmLVIDd: 4.47 cmLVIDs: 2.30 cmLVPWd: 0.69 | | cmLVPWs: 1.29 cmSV(Teich): 72.86 mlD-E Excursion: 1.47 cmE-F [place]: 0.07 | | m/sEPSS: 0.45 cmIVC diameter: 1.64 cmIVC collapse: 0.56 cmIVC % collapse: 63.87 | | %HR: 67.62 BPMAV maxP.56 mmHgAV meanP.44 mmHgAV Vmax: 1.46 m/Todd Vmean: | | 0.96 m/Todd VTI: 30.60 cmAVA Vmax: 2.97 cm2AVA (VTI): 2.74 um6RLXO Dopp: 3.43 | | l/ahvi9SHMM Dopp: 5.81 l/minHR: 69.06 BPMLVOT maxP.75 mmHgLVOT [...] | m/sMV VTI: 44.97 cmMVA (VTI): 1.87 rx3Hngqco e': 0.07 m/sSeptal E/e': | | 16.76Lateral [...] | m/sTV A Ian: 0.26 m/sTV Dec [place]: 1.64 m/s2TV Dec Time: 276.68 msTV E Ian: 0.45 | | m/sTV E/A Ratio: 1.71 Crop Roller: Melyticated by: Elena Morgan | | Date/Time: [...] | |D-E Excursion: 1.47 cm | |E-F [place]: 0.07 m/s | |EPSS: 0.45 cm | [...] A Ian: 0.26 m/s | |TV Dec [place]: 1.64 m/s2 | |TV Dec Time: 276.68 ms | |TV E Ian: 0.45 m/s | |TV E/A Ratio: 1.71 | | | |Crop Roller: COLIN | |Authenticated by: Elena Tafoya MD [...] EXTERNAL | | | | performed at [facility];[address] | | LAB | | | | [address];[place] | | | | | | [address] | | | | + + + [...] | | | | | | ACUTE [place] Testing | | | | | | performed at [facility] | | | | | | [facility];[place], [place] | | | | | | [address] | | | | + + + [...] EXTERNAL | | | | performed at [facility];[address] | mmol/L | LAB | | | | [facility];[place], [place] | | | | | | [address] | | | | + + + [...] LAB | | | | performed at [facility];[address] | | | | | | [address];[place] | | | | | | [address] | | | | + + + [...] | | | | | [place] [address] | | | | + + + [...] | | | Fingerstick | performed at [facility];[address] | | LAB | | | | [address];[place] | | | | | | [address] | | | | + + + [...] | | 2013 1:21AM Referring Provider Line: [phone] ID: [id number] | | + + + + + + | Narrative | Performed At | + + + | EXAM: BILATERAL LOWER EXTREMITY VENOUS ULTRASOUND EXAM DATE: | | | 08/28/2014 01:41 AM. CLINICAL HISTORY: Elevated d-dimer. | | | COMPARISON: None. TECHNIQUE: Real-time sonographic vascular | | | imaging was performed by the nickel plant operator through the lower extremities | | | utilizing both color-flow and Doppler spectral analysis. Multiple | | | equal opportunity representative static images were saved for review. [...] imaging was performed by the | | nickel plant operator through the lower extremities utilizing both color-flow and Doppler | | spectral analysis. Multiple equal opportunity representative static images were saved for review. [...] 2014 | | 1:21AM Referring Provider Line: [phone] ID: [id number] | |Superficial Femoral Vein (SFV) [...] Aug 28 2014 1:21AM Referring Provider Line: [phone] ID: [id number] | + + POC Glucose (08/28/2014 1:34 AM PDT) + + + + + + | Component | Value | Ref Range | Performed | Pathologist | | | | | At | Signature | + + + + + + | Glucose, | 116 (H)Comment: Testing | 65 - 99 mg/dL | EXTERNAL | | | Fingerstick | performed at [facility];[address] | | LAB | | | | [address];[place] | | | | | | [address] | | | | + + + [...] EXTERNAL | | | | performed at [facility];[address] | | LAB | | | | [address];[place] | | | | | | [address] | | | | + + + [...] | | | | | | ACUTE [place] Testing | | | | | | performed at [facility];[address] | | | | | | [address];[place], [place] | | | | | | [address] | | | | + + + [...] EXTERNAL | | | | performed at [facility], [address] | | LAB | | | | [address], | | | | | | [place] [address] | | | | + + + + + + | RED CELL | 4.06Comment: Testing | 3.70 - 5.10 | EXTERNAL | | | COUNT | performed at [facility], [address] | M/uL | LAB | | | | [address], | | | | | | [place] [address] | | | | + + + + + + | Hgb | 12.8Comment: Testing | 11.3 - 15.5 | EXTERNAL | | | | performed at [facility], [address] | g/dL | LAB | | | | [address], | | | | | | [place] [address] | | | | + + + + + + | Hematocrit, | 36.0Comment: Testing | 34.0 - 46.0 % | EXTERNAL | | | POC | performed at [facility], [address] | | LAB | | | | [address], | | | | | | [place] [address] | | | | + + + + + + | MCV | 88.8Comment: Testing | 80.0 - 100.0 fl | EXTERNAL | | | | performed at [facility], [address] | | LAB | | | | [address], | | | | | | [place] [address] | | | | + + + + + + | MCH | 31.5Comment: Testing | 27.0 - 34.0 pg | EXTERNAL | | | | performed at [facility], [address] | | LAB | | | | [address], | | | | | | [place] [address] | | | | + + + + + + | MCHC | 35.4Comment: Testing | 32.0 - 35.5 | EXTERNAL | | | | performed at [facility], [address] | g/dL | LAB | | | | [address], | | | | | | [place] [address] | | | | + + + + + + | RDW-CV | 40.3Comment: Testing | 37 - 53 fl | EXTERNAL | | | | performed at [facility], [address] | | LAB | | | | [address], | | | | | | [place] [address] | | | | + + + + + + | Platelet | 299Comment: Testing | 150 - 400 K/uL | EXTERNAL | | | Count | performed at [facility], [address] | | LAB | | | Plasma | [address], | | | | | | [place] [address] | | | | + + + + + + | MPV | 8.5Comment: Testing | fl | EXTERNAL | | | | performed at [facility], [address] | | LAB | | | | [address], | | | | | | [place] [address] | | | | + + + + + + | Differentia | AUTOMATEDComment: | | EXTERNAL | | | l Type | Testing performed at | | LAB | | | | [facility], [address] | | | | | | [place] | | | | | | [address] | | | | + + + + + + | % Segmented | 69.8Comment: Testing | % | EXTERNAL | | | | performed at [facility], [address] | | LAB | | | Neutrophils | [address], | | | | | | [place] [address] | | | | + + + + + + | % | 20.4Comment: Testing | % | EXTERNAL | | | Lymphocytes | performed at [facility], [address] | | LAB | | | | [address], | | | | | | [place] [address] | | | | + + + + + + | % Monocytes | 8.5Comment: Testing | % | EXTERNAL | | | | performed at [facility], [address] | | LAB | | | | [address], | | | | | | [place] [address] | | | | + + + + + + | % | 1.1Comment: Testing | % | EXTERNAL | | | Eosinophils | performed at [facility], [address] | | LAB | | | | [address], | | | | | | [place] [address] | | | | + + + + + + | % Basophils | 0.2Comment: Testing | % | EXTERNAL | | | | performed at [facility], [address] | | LAB | | | | [address], | | | | | | [place] [address] | | | | + + + + + + | Absolute | 8.4 (H)Comment: Testing | 1.9 - 7.4 K/uL | EXTERNAL | | | Segmented | performed at [facility], [address] | | LAB | | | Neutrophils | [address], | | | | | | [place] [address] | | | | + + + + + + | Absolute | 2.4Comment: Testing | 1.0 - 3.9 K/uL | EXTERNAL | | | Lymphocytes | performed at [facility], [address] | | LAB | | | | [address], | | | | | | [place] [address] | | | | + + + + + + | Absolute | 1.0 (H)Comment: Testing | 0 - 0.8 K/uL | EXTERNAL | | | Monocytes | performed at [facility], [address] | | LAB | | | | [address], | | | | | | [place] [address] | | | | + + + + + + | Absolute | 0.1Comment: Testing | 0 - 0.5 K/uL | EXTERNAL | | | Eosinophils | performed at [facility], [address] | | LAB | | | | [address], | | | | | | [place] [address] | | | | + + + + + + | Absolute | 0.0Comment: Testing | 0 - 0.1 K/uL | EXTERNAL | | | Basophils | performed at [facility], [address] | | LAB | | | | [address], | | | | | | [place] [address] | | | | + + + [...] EXTERNAL | | | | performed at [facility] | | LAB | | | | [address];[place] | | | | | | [address] | | | | + + + [...] EXTERNAL | | | | performed at [facility];[address] | mmol/L | LAB | | | | [address];[place] | | | | | | [address] | | | | + + + + + + | K | 2.5 (LL)Comment: K | 3.5 - 4.9 | EXTERNAL | | | | PHONED TO [facility] AT | mmol/L | LAB | | | | 0755 BY VINEETREAD BACK | | | | | | RESULTS VERIFIEDTesting | | | | | | performed at [facility] | | | | | | [address];[place] | | | | | | [address] | | | | + + + + + + | Cl | 107Comment: Testing | 99 - 109 mmol/L | EXTERNAL | | | | performed at [facility] | | LAB | | | | [address];[place] | | | | | | [address] | | | | + + + + + + | CO2 | 25Comment: Testing | 23 - 32 mmol/L | EXTERNAL | | | | performed at [facility] | | LAB | | | | [address];[place] | | | | | | [address] | | | | + + + + + + | Anion Gap | 12Comment: Testing | 5 - 20 mmol/L | EXTERNAL | | | | performed at [facility];[address] | | LAB | | | | [address];[place] | | | | | | [address] | | | | + + + + + + | Glucose, | 98Comment: Testing | 65 - 99 mg/dL | EXTERNAL | | | Fasting | performed at [facility];[address] | | LAB | | | | [address];[place] | | | | | | [address] | | | | + + + + + + | BUN | 14Comment: Testing | 8 - 25 mg/dL | EXTERNAL | | | | performed at [facility];[address] | | LAB | | | | [address];[place] | | | | | | [address] | | | | + + + + + + | Creatinine | 0.78Comment: Testing | 0.50 - 1.00 | EXTERNAL | | | | performed at [facility];[address] | mg/dL | LAB | | | | [address];[place] | | | | | | [address] | | | | + + + + + + | BUN/Creatin | 18Comment: Testing | | EXTERNAL | | | ine Ratio | performed at [facility];[address] | | LAB | | | | [address];[place] | | | | | | [address] | | | | + + + + + + | Calcium | 8.7Comment: Testing | 8.5 - 10.2 | EXTERNAL | | | | performed at [facility];[address] | mg/dL | LAB | | | | [address];[place] | | | | | | [address] | | | | + + + + + + | Protein, | 6.7Comment: Testing | 6.3 - 8.2 g/dL | EXTERNAL | | | Total | performed at [facility];[address] | | LAB | | | | [address];[place] | | | | | | [address] | | | | + + + + + + | Albumin | 3.6Comment: Testing | 3.3 - 4.8 g/dL | EXTERNAL | | | | performed at [facility];[address] | | LAB | | | | [address];[place] | | | | | | [address] | | | | + + + + + + | Globulin | 3.1Comment: Testing | 1.3 - 4.9 g/dL | EXTERNAL | | | | performed at [facility];[address] | | LAB | | | | [address];[place] | | | | | | [address] | | | | + + + + + + | A/G Ratio | 1.2Comment: Testing | 1.0 - 2.4 | EXTERNAL | | | | performed at [facility];[address] | | LAB | | | | [address];[place] | | | | | | [address] | | | | + + + + + + | Bilirubin | 0.4Comment: Testing | 0.1 - 1.5 mg/dL | EXTERNAL | | | Total | performed at [facility];[address] | | LAB | | | | [address];[place] | | | | | | [address] | | | | + + + + + + | ALP, | 88Comment: Testing | 35 - 115 U/L | EXTERNAL | | | External | performed at [facility];[address] | | LAB | | | | [address];[place] | | | | | | [address] | | | | + + + + + + | AST | 31Comment: Testing | 10 - 45 U/L | EXTERNAL | | | | performed at [facility];[address] | | LAB | | | | [address];[place] | | | | | | [address] | | | | + + + + + + | ALT | 31Comment: Testing | 10 - 65 U/L | EXTERNAL | | | | performed at [facility];[address] | | LAB | | | | [address];[place] | | | | | | [address] | | | | + + + [...] | | | | | | at [facility];[address];[place] [address] | | | | + + + [...] 1:58AM Referring Provider Line: | | | [phone] ID: [id number] | | + + + + + + | Narrative | Performed At | + + + | MR brain MR brain without contrast, MR angiogram brain | | | INDICATION: Altered mental status. Seizure. Technique : | | | multisequence, multiplanar MR imaging of the brain without IV | | | contrast. 3-D zfkp-vr-[id number] MR angiography with MIP reconstruction | | [...] of the brain without IV contrast. 3-D tmcv-iw-[id number] MR | | angiography with MIP reconstruction [...] 2014 1:58AM Referring | | Provider Line: [phone] ID: [id number] | | | |Both internal [...] 28 2014 1:58AM Referring Provider Line: [phone] ID: [id number] | + + HISTORICAL MICROBIOLOGY RESULT (08/27/2014 6:30 PM PDT) + + | Specimen | + + | Stool specimen | | (specimen) | + + + + + | Narrative | Performed At | + + + | Toxigenic C Difficile NEGATIVE Testing | EXTERNAL LAB | | performed at [facility] [facility];[place] [address] 027 NAP1 BI | | | 027 NAP1 BI PRESUMPTIVE NEGATIVE | | | Detection of 027 NAP1 BI strains of C. difficile is presumptive and | | | for epidemiological purposes and not intended to guide or monitor | | | treatment for C. difficile infections. Testing performed at [facility] | | | [facility];[place] [address] | | + + + + +---------+ [...] TESTING. | | | Testing performed at [facility], [address] | | | [place] [address] | | + + + + +---------+ [...] Prior examination: None. 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 Prior examination: None. 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 [...] EXTERNAL | | | | performed at [facility];[address] | | LAB | | | [address];[place] | | | | | | [address] | | | | + + + + + -+ | RED CELL | 4.08Comment: Testing | 3.70 - 5.10 | EXTERNAL | | | COUNT | performed at [facility];[address] | M/uL | LAB | | | | [address];[place] | | | | | | [address] | | | | + + + + + -+ | Hgb | 12.8Comment: Testing | 11.3 - 15.5 | EXTERNAL | | | | performed at [facility];[address] | g/dL | LAB | | | | [address];[place] | | | | | | [address] | | | | + + + + + -+ | Hematocrit, | 36.1Comment: Testing | 34.0 - 46.0 % | EXTERNAL | | | POC | performed at [facility];[address] | | LAB | | | | [address];[place] | | | | | | [address] | | | | + + + + + -+ | MCV | 88.5Comment: Testing | 80.0 - 100.0 fl | EXTERNAL | | | | performed at [facility];[address] | | LAB | | | | [address];[place] | | | | | | [address] | | | | + + + + + -+ | MCH | 31.3Comment: Testing | 27.0 - 34.0 pg | EXTERNAL | | | | performed at [facility];[address] | | LAB | | | | [address];[place] | | | | | | [address] | | | | + + + + + -+ | MCHC | 35.4Comment: Testing | 32.0 - 35.5 | EXTERNAL | | | | performed at [facility];[address] | g/dL | LAB | | | | [address];[place] | | | | | | [address] | | | | + + + + + -+ | RDW-CV | 40.7Comment: Testing | 37 - 53 fl | EXTERNAL | | | | performed at [facility];[address] | | LAB | | | | [address];[place] | | | | | | [address] | | | | + + + + + -+ | Platelet | 326Comment: Testing | 150 - 400 K/uL | EXTERNAL | | | Count | performed at [facility];[address] | | LAB | | | Plasma | [address];[place] | | | | | | [address] | | | | + + + + + -+ | MPV | 7.8Comment: Testing | fl | EXTERNAL | | | | performed at [facility];[address] | | LAB | | | | [address];[place] | | | | | | [address] | | | | + + + + + -+ | Differentia | AUTOMATEDComment: | | EXTERNAL | | | l Type | Testing performed at | | LAB | | | | [facility];[address];[place] [address] | | | | + + + + + -+ | % Segmented | 59.9Comment: Testing | % | EXTERNAL | | | | performed at [facility];[address] | | LAB | | | Neutrophils | [address];[place] | | | | | | [address] | | | | + + + + + -+ | % | 29.6Comment: Testing | % | EXTERNAL | | | Lymphocytes | performed at [facility];[address] | | LAB | | | | [address];[place] | | | | | | [address] | | | | + + + + + -+ | % Monocytes | 7.9Comment: Testing | % | EXTERNAL | | | | performed at [facility];[address] | | LAB | | | | [address];[place] | | | | | | [address] | | | | + + + + + -+ | % | 1.7Comment: Testing | % | EXTERNAL | | | Eosinophils | performed at [facility];[address] | | LAB | | | | [address];[place] | | | | | | [address] | | | | + + + + + -+ | % Basophils | 0.9Comment: Testing | % | EXTERNAL | | | | performed at [facility];[address] | | LAB | | | | [address];[place] | | | | | | [address] | | | | + + + + + -+ | Absolute | 4.5Comment: Testing | 1.9 - 7.4 K/uL | EXTERNAL | | | Segmented | performed at [facility];[address] | | LAB | | | Neutrophils | [address];[place] | | | | | | [address] | | | | + + + + + -+ | Absolute | 2.2Comment: Testing | 1.0 - 3.9 K/uL | EXTERNAL | | | Lymphocytes | performed at [facility];[address] | | LAB | | | | [address];[place] | | | | | | [address] | | | | + + + + + -+ | Absolute | 0.6Comment: Testing | 0 - 0.8 K/uL | EXTERNAL | | | Monocytes | performed at [facility];[address] | | LAB | | | | [address];[place] | | | | | | [address] | | | | + + + + + -+ | Absolute | 0.1Comment: Testing | 0 - 0.5 K/uL | EXTERNAL | | | Eosinophils | performed at [facility];[address] | | LAB | | | | [address];[place] | | | | | | [address] | | | | + + + + + -+ | Absolute | 0.1Comment: Testing | 0 - 0.1 K/uL | EXTERNAL | | | Basophils | performed at [facility];[address] | | LAB | | | [address];[place] | | | | | | [address] | | | | + + + + + -+ | Na | 137Comment: Testing | 135 - 143 | EXTERNAL | | | | performed at [facility];[address] | mmol/L | LAB | | | | [address];[place] | | | | | | [address] | | | | + + + + + -+ | K | 3.1 (L)Comment: Testing | 3.5 - 4.9 | EXTERNAL | | | | performed at [facility];[address] | mmol/L | LAB | | | | [address];[place] | | | | | | [address] | | | | + + + + + -+ | Cl | 104Comment: Testing | 99 - 109 mmol/L | EXTERNAL | | | | performed at [facility];[address] | | LAB | | | | [address];[place] | | | | | | [address] | | | | + + + + + -+ | CO2 | 22 (L)Comment: Testing | 23 - 32 mmol/L | EXTERNAL | | | | performed at [facility];[address] | | LAB | | | | [address];[place] | | | | | | [address] | | | | + + + + + -+ | Anion Gap | 14Comment: Testing | 5 - 20 mmol/L | EXTERNAL | | | | performed at [facility];[address] | | LAB | | | | [address];[place] | | | | | | [address] | | | | + + + + + -+ | Glucose, | 131 (H)Comment: Testing | 65 - 99 mg/dL | EXTERNAL | | | Fasting | performed at [facility];[address] | | LAB | | | | [address];[place] | | | | | | [address] | | | | + + + + + -+ | BUN | 19Comment: Testing | 8 - 25 mg/dL | EXTERNAL | | | | performed at [facility];[address] | | LAB | | | | [address];[place] | | | | | | [address] | | | | + + + + + -+ | Creatinine | 1.05 (H)Comment: Testing | 0.50 - 1.00 | EXTERNAL | | | | performed at [facility];[address] | mg/dL | LAB | | | | [address];[place] | | | | | | [address] | | | | + + + + + -+ | BUN/Creatin | 19Comment: Testing | | EXTERNAL | | | ine Ratio | performed at [facility];[address] | | LAB | | | | [address];[place] | | | | | | [address] | | | | + + + + + -+ | Calcium | 8.4 (L)Comment: Testing | 8.5 - 10.2 | EXTERNAL | | | | performed at [facility];[address] | mg/dL | LAB | | | | [address];[place] | | | | | | [address] | | | | + + + + + -+ | Protein, | 6.6Comment: Testing | 6.3 - 8.2 g/dL | EXTERNAL | | | Total | performed at [facility];[address] | | LAB | | | | [address];[place] | | | | | | [address] | | | | + + + + + -+ | Albumin | 3.6Comment: QA FLAGS | 3.3 - 4.8 g/dL | EXTERNAL | | | | AND/OR RANGES MODIFIED | | LAB | | | | BY DEMOGRAPHIC UPDATE ON | | | | | | 08/27 AT 1945Testing | | | | | | performed at [facility];[address] | | | | | | [address];[place] | | | | | | [address] | | | | + + + + + -+ | Globulin | 3.0Comment: Testing | 1.3 - 4.9 g/dL | EXTERNAL | | | | performed at [facility];[address] | | LAB | | | | [address];[place] | | | | | | [address] | | | | + + + + + -+ | A/G Ratio | 1.2Comment: Testing | 1.0 - 2.4 | EXTERNAL | | | | performed at [facility];[address] | | LAB | | | | [address];[place] | | | | | | [address] | | | | + + + + + -+ | Bilirubin | 0.6Comment: Testing | 0.1 - 1.5 mg/dL | EXTERNAL | | | Total | performed at [facility];[address] | | LAB | | | | [address];[place] | | | | | | [address] | | | | + + + + + -+ | ALP, | 89Comment: Testing | 35 - 115 U/L | EXTERNAL | | | External | performed at [facility];[address] | | LAB | | | | [address];[place] | | | | | | [address] | | | | + + + + + -+ | AST | 26Comment: Testing | 10 - 45 U/L | EXTERNAL | | | | performed at [facility];[address] | | LAB | | | | [address];[place] | | | | | | [address] | | | | + + + + + -+ | ALT | 33Comment: Testing | 10 - 65 U/L | EXTERNAL | | | | performed at [facility];[address] | | LAB | | | | [address];[place] | | | | | | [address] | | | | + + + [...] | | | | | | at [facility];[address];[place] [address] | | | | + + + + + -+ | CK, Total | 49Comment: Testing | 30 - 240 U/L | EXTERNAL | | | | performed at [facility];[address] | | LAB | | | | [address];[place] | | | | | | [address] | | | | + + + [...] | | | | | performed at [facility];[address] | | | | | | [address];[place] | | | | | | [address] | | | | + + + + + -+ | aPTT, | 24Comment: Testing | 23 - 32 seconds | EXTERNAL | | | Patient | performed at [facility];[address] | | LAB | | | | [address];[place] | | | | | | [address] | | | | + + + + + -+ | CK-MB | 1.6Comment: Testing | 0.5 - 3.6 ng/mL | EXTERNAL | | | | performed at [facility];[address] | | LAB | | | | [address];[place] | | | | | | [address] | | | | + + + [...] | | | | | performed at [facility];[address] | | | | | | [facility];[place], [place] | | | | | | [address] | | | | + + + [...] EXTERNAL | | | | performed at [facility];[address] | | LAB | | | | [address];[place] | | | | | | [address] | | | | + + + [...] EXTERNAL | | | | performed at [facility];[address] | uIU/mL | LAB | | | | [address];[place], [place] | | | | | | [address] | | | | + + + [...] EXTERNAL | | | | performed at [facility] | | LAB | | | | [address];[place] | | | | | | [address] | | | | + + + [...] EXTERNAL | | | | performed at [facility];[address] | | LAB | | | | [address] [facility];[place], [place] | | | | | | [address] | | | | + + + [...] + + | Hemoglobin | 5.2Comment: [place] | 4.0 - 6.0 % | EXTERNAL [...] | | | | | performed at [facility], [address] | | | | | [address] [facility], | | | | | | [place] [address] | | | | + + + [...] | | | | | performed at [facility], [address] | | | | | | [facility], | | | | | | [place] [address] | | | | + + + [...] | | | Alcohol | performed at [facility];[address] | | LAB | | | | [address];[place] | | | | | | [address] | | | | + + + [...] | | LAB | | | | [facility];[address];[place] [address] | | | | + + + + + + | PCO2 ART | 36Comment: Testing | 35 - 45 mmHg | EXTERNAL | | | | performed at [facility];[address] | | LAB | | | | [address];[place] | | | | | | [address] | | | | + + + + + + | PO2 ART | 74 (L)Comment: Testing | 80 - 105 mmHg | EXTERNAL | | | | performed at [facility];[address] | | LAB | | | | [address];[place] | | | | | | [address] | | | | + + + + + + | Lactate, | 4.4 (H)Comment: Testing | 0.36 - 1.25 | EXTERNAL | | | Arterial | performed at [facility];[address] | mmol/L | LAB | | | | [address];[place] | | | | | | [address] | | | | + + + + + + | HCO3 ART | 19 (L)Comment: Testing | 22 - 26 mmol/L | EXTERNAL | | | | performed at [facility];[address] | | LAB | | | | [address];[place] | | | | | | [address] | | | | + + + + + + | POC | 20 (L)Comment: Testing | 23 - 27 mEq/L | EXTERNAL | | | APPEARANCE | performed at [facility];[address] | | LAB | | | UA | [address];[place] | | | | | | [address] | | | | + + + + + + | Base | 7 (H)Comment: Testing | 0.0 - 2.0 | EXTERNAL | | | deficit | performed at [facility];[address] | mmol/L | LAB | | | | [address];[place] | | | | | | [address] | | | | + + + + + + | O2 SAT ART | 94 (L)Comment: Testing | 95 - 98 % | EXTERNAL | | | | performed at [facility];[address] | | LAB | | | | [address];[place] | | | | | | [address] | | | | + + + + + + | FiO2, POC | 40Comment: Testing | % | EXTERNAL | | | | performed at [facility];[address] | | LAB | | | | [address];[place] | | | | | | [address] | | | | + + + + + + | Comment, | Tidal Volume = | | EXTERNAL | | | POC | 400Comment: Peep = 8Resp | | LAB | | | | Rate = 14Testing | | | | | | performed at [facility] [place] | | | | | [address];[place] | | | | | | [address] | | | | + + + [...]
--- OUTSIDE RECORDS SUMMARY | ~2019-09-12 | XMS | Encounter Summary ---
Demographics + + + | Address | [address] | | | [place] [address] | + + + | Home Phone [...] | | | CENTER [address] | [facility] | | | | | [address] [place], [place] | [place] [address] | | | | | [address] | [phone] | | | | | [phone] | | | +--------+ + + + [...] | | | | | | [place] [address] | | | | | | [phone] | | | | | | | | +--------+---------+ + + + | 05/08/ | Office | Neurology | Garth Vinson MD | | | 2019 | Visit | | [address] | | | | | | [place], [place] | | | | | | [address] | | | | | | | | +--------+---------+ + + + documented as of this encounter Visit Diagnoses Not on filedocumented in this encounter"
--- OUTSIDE RECORDS SUMMARY | ~2019-09-12 | XMS | Encounter Summary ---
Demographics + + + | Address | [address] | | | [place] [address] | + + + | Home Phone [...] Providers + +------+ + | Care Glass Robot Operator Name | Role | Phone | [...] | | | [place], [place] | [address] | | | | | [address] | [phone] | | | | | [phone] | | | +--------+ + + + [...] | | | | | | [place] [address] | | | | | | [phone] | | | | | | | | +--------+---------+ + + + | 05/08/ | Office | Neurology | Garth Vinson MD | | | 2019 | Visit | | [address] | | | | | | [place] | | | | | | [address] | | | | | | | | +--------+---------+ + + + documented as of this encounter Visit Diagnoses Not on filedocumented in this encounter"
--- OUTSIDE RECORDS SUMMARY | ~2019-09-12 | XMS | Encounter Summary ---
Demographics + + + | Address | [address] | | | [place] [address] | + + + | Home Phone [...] Team Providers + +------+ + | Care Educational Technology Specialist Name | Role | Phone | [...] | | | [place], [place] | [address] | | | | | [address] | [phone] | | | | | [phone] | | | +--------+ + + + [...] | | | | | | [place] [address] | | | | | | [phone] | | | | | | | | +--------+---------+ + + + | 05/08/ | Office | Neurology | Garth Vinson MD | | | 2019 | Visit | | [address] | | | | | | [place] | | | | | | [address] | | | | | | | | +--------+---------+ + + + documented as of this encounter Visit Diagnoses Not on filedocumented in this encounter"
--- OUTSIDE RECORDS SUMMARY | ~2019-09-12 | XMS | Encounter Summary ---
Demographics + + + | Address | [address] | | | [place] [address] | + + + | Home Phone [...] Team Providers + +------+ + | Care Regional Driver Name | Role | Phone | [...] [id number] | | | | | [place] [address] | | | | | | [phone] | | | +--------+ + + + [...] | | | | | | [place] [address] | | | | | | [phone] | | | | | | | | +--------+---------+ + + + | 05/08/ | Office | Neurology | Garth Vinson MD | | | 2020 | Visit | | [address] | | | | | | [place] | | | | | | [address] | | | | | | | | +--------+---------+ + + + documented as of this encounter Visit Diagnoses Not on filedocumented in this encounter"
--- OUTSIDE RECORDS SUMMARY | ~2019-09-12 | XMS | Encounter Summary ---
Demographics + + + | Address | [address] | | | [place] [address] | + + + | Home Phone [...] Providers + +------+ + | Care Senior Microsoft Consultant Name | Role | Phone | [...] | | | | [place] | [address] | | | | | [address] | [phone] | | | | | [phone] | | | +--------+ + + + [...] | | | | | | [place] [address] | | | | | | [phone] | | | | | | | | +--------+---------+ + + + | 05/08/ | Office | Neurology | Garth Vinson MD | | | 2019 | Visit | | [address] | | | | | | [place] | | | | | | [phone] | | | | | | | [...] 5 Highly suggestive for/of malignancy. JOB #: [id number] | | | Digitally Released by: Ankur [...] | | | | | JOB #: [id number] | | Digitally Released by: Ankur Hooker | | | | | | Read By: ANKUR HOOKER MD | | Date: 01/17/2017 16:54 | | | + + documented in this encounter Visit Diagnoses Not on filedocumented in this encounter
--- OUTSIDE RECORDS SUMMARY | ~2019-09-12 | XMS | Encounter Summary ---
Demographics + + + | Address | [address] | | | [place] [address] | + + + | Home Phone | | + + + | Preferred Language | Unknown | + + + | Marital Status | | + + + | Moravian Affiliation | 1077 | + + + [...] | + + +---------+ + | Williamalexa Bucknre | ECON | Unknown | | + + +---------+ + | Yohannes Kyree | ECON | Unknown | | + + +---------+ + Care Team Providers + +------+ + | Care Choke Setter Name | Role | Phone | + +------+ + PCP | Unavailable | + +------+ + Encounter Details +--------+ + + + + | Date | Type | Department | Care Team | Description | +--------+ + + + + | 09/21/ | Hospital | [facility] | [facility] | | | 2011 | Encounter | [facility] | MD [address] | | | | | [address] | [place] | | | | | [place] | [place], [place] | | | | | [address] | [address] | | | | | [phone] | [phone] | | | | | | | [...] | | | | | | [place] [address] | | | | | | [phone] | | | | | | | | +--------+---------+ + + + | 05/08/ | Office | Neurology | Garth Vinson MD | | | 2019 | Visit | | [address] | | | | | | [place] | | | | | | [address] | | | | | | | | +--------+---------+ + + + documented as of this encounter Visit Diagnoses Not on filedocumented in this encounter"
--- OUTSIDE RECORDS SUMMARY | ~2019-09-12 | XMS | Encounter Summary ---
Demographics + + + | Address | [address] [facility] | | | [place] [address] | + + + | Home Phone [...] + | Care Filter Tank Tender Helper Name | Role | Phone | [...] | | | | [place] | [address] | | | | | [address] | [phone] | | | | | [phone] | | | +--------+ + + + [...] | | | | | | [place] [address] | | | | | | [phone] | | | | | | | | +--------+---------+ + + + | 05/08/ | Office | Neurology | Garth Vinson MD | | | 2019 | Visit | | [address] | | | | | | [place] | | | | | | [phone] | | | | | | | | +--------+---------+ + + + documented as of this encounter Visit Diagnoses Not on filedocumented in this encounter"
--- OUTSIDE RECORDS SUMMARY | ~2019-09-12 | XMS | Encounter Summary ---
Demographics + + + | Address | [address] | | | [place] [address] | + + + | Home Phone [...] Team Providers + +------+ + | Care Commission For The Blind Director Name | Role | Phone | [...] [address] | | | | | [place] [address] | | | | | | [phone] | | | +--------+ + + + [...] | | | | | | [place] [address] | | | | | | [phone] | | | | | | | | +--------+---------+ + + + | 05/08/ | Office | Neurology | Garth Vinson MD | | | 2020 | Visit | | [address] | | | | | | [place] | | | | | | [address] | | | | | | | | +--------+---------+ + + + documented as of this encounter Visit Diagnoses Not on filedocumented in this encounter"
--- OUTSIDE RECORDS SUMMARY | ~2019-09-12 | XMS | Encounter Summary ---
Demographics + + + | Address | [address] | | | [place] [address] | + + + | Home Phone [...] Team Providers + +------+ + | Care Online Advertising Manager Name | Role | Phone | [...] | | | | [place] | [place], [place] | | | | | [address] | [address] | | | | | [phone] | [phone] | | | | | | | [...] | | | | | | [place] [address] | | | | | | [phone] | | | | | | | | +--------+---------+ + + + | 05/08/ | Office | Neurology | Garth Vinson MD | | | 2019 | Visit | | [address] | | | | | | [place] | | | | | | [address] | | | | | | | | +--------+---------+ + + + documented as of this encounter Visit Diagnoses Not on filedocumented in this encounter"
--- OUTSIDE RECORDS SUMMARY | ~2019-09-12 | XMS | Clinical Summary ---
Demographics + + + | Address | [address] | | | [place] [address] | + + + | Home Phone | | + + + | Preferred Language | Unknown | + + + | Marital Status | | + + + | Druze Affiliation | 1038 | + + + | Race | Unknown | + + + | Ethnic Group | Unknown | + + + Author + + + | Author | [facility] (Historical as of | | | 06-12-19) | + + + | Organization | [facility] (Historical as of | | | 06-12-19) | + + + | Address | Unknown | + + + | Phone | Unavailable | + + + Support + + + + + | Name | Relationship | Address | Phone | + + + + + | Cristina Donnelly | ECON | [address] | | | | | [facility] [place] | | | | | [address] | | + + + + + Care Team Providers + +------+ + | Care Stranner Name | Role | Phone | + [...] | MA - GENERIC | MA-GEN | [id number] | Medica | | | | | [...] | Self | [birth year] | | [address] | | | al/Fam | | 1941 | | [place], [place] | | | ava | | | | [address] | + +--------+ +--------+-------+ +"
--- OUTSIDE RECORDS SUMMARY | ~2019-09-12 | XMS | Encounter Summary ---
Demographics + + + | Address | [address] | | | [place] [address] | + + + | Home Phone [...] Team Providers + +------+ + | Care Board Of Directors Name | Role | Phone | + [...] | | | | [place], [place] | [address] | | | | | [address] | | | | | | [phone] | | | +--------+ + + + [...] | | | | | | [place] [address] | | | | | | [phone] | | | | | | | | +--------+---------+ + + + | 05/08/ | Office | Neurology | Garth Vinson MD | | | 2019 | Visit | | [address] | | | | | | [place], [place] | | | | | | [address] | | | | | | | | +--------+---------+ + + + documented as of this encounter Visit Diagnoses Not on filedocumented in this encounter"
--- OUTSIDE RECORDS SUMMARY | ~2019-09-12 | XMS | Encounter Summary ---
Demographics + + + | Address | [address] | | | [place] [address] | + + + | Home Phone [...] Team Providers + +------+ + | Care Waiter/Waitress Informal Name | Role | Phone | + [...] | | | | [place] | [address] | | | | | [address] | | | | | | [phone] | | | +--------+ + + + [...] | | | | | | [address] [place], | | | | | | [place] [address] | | | | | | [phone] | | | | | | | | +--------+---------+ + + + | 07/13/ | Office | Neurology | Garth Vinson MD | | | 2019 | Visit | | [address] | | | | | | [place] | | | | | | [phone] | | | | | | | | +--------+---------+ + + + documented as of this encounter Visit Diagnoses Not on filedocumented in this encounter"
--- OUTSIDE RECORDS SUMMARY | ~2019-09-12 | XMS | Encounter Summary ---
Demographics + + + | Address | [address] | | | [place] [address] | + + + | Home Phone [...] Team Providers + +------+ + | Care Charge Aide Name | Role | Phone | + [...] | | | [place], [place] | [address] | | | | | [address] | [phone] | | | | | [phone] | | | +--------+ + + + [...] | | | | | | [place] [address] | | | | | | [phone] | | | | | | | | +--------+---------+ + + + | 05/08/ | Office | Neurology | Garth Vinson MD | | | 2019 | Visit | | [address] | | | | | | [place] | | | | | | [address] | | | | | | | | +--------+---------+ + + + documented as of this encounter Visit Diagnoses Not on filedocumented in this encounter"
--- OUTSIDE RECORDS SUMMARY | ~2019-09-12 | XMS | Encounter Summary ---
Demographics + + + | Address | [address] | | | [place] [address] | + + + | Home Phone | | + + + | Preferred Language | Unknown | + + + | Marital Status | | + + + | Denominational Affiliation | 1077 | + + + [...] Team Providers + +------+ + | Care Apartment Manager Name | Role | Phone | [...] | | | | [place] | [address] | | | | | [address] | [phone] | | | | | [phone] | | | +--------+ + + + [...] | | | | | | [place] [address] | | | | | | [phone] | | | | | | | | +--------+---------+ + + + | 05/08/ | Office | Neurology | aGrth Vinson MD | | | 2019 | Visit | | [address] | | | | | | [place] | | | | | | [phone] | | | | | | | | +--------+---------+ + + + documented as of this encounter Visit Diagnoses Not on filedocumented in this encounter"
--- OUTSIDE RECORDS SUMMARY | ~2019-09-12 | XMS | Clinical Summary ---
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 | | | | | polyneuropathy | | | | | | associated with type | | | | | | 2 diabetes mellitus | | | | | | ([facility]) Numbness | | + +--------+ + + + | EMG STUDY | Routin | 09/10/2019 | Diabetes mellitus | Results for this | | | e | 2:00 PM | type 2 in nonobese | procedure are in the | | | | PST | ([facility]) Diabetic | results section. | | | | | polyneuropathy | | | | | | associated with type | | | | | | 2 diabetes mellitus | | | | | | ([facility]) Numbness | | + +--------+ + + + | EMG STUDY | Routin | 09/10/2019 | Diabetes mellitus | Results for this | | | e | 2:00 PM | type 2 in nonobese | procedure are in the | | | | PST | ([facility]) Diabetic | results section. | | | | | polyneuropathy | | | | | | associated with type | | | | | | 2 diabetes mellitus | | | | | | ([facility]) Numbness | | + +--------+ [...] | [facility] | [id number] | | | | Medica | | [...] | Self | [birth year] | [address] | | | al/Fam | | 1941 | [phone] | [place], [place] | | | ava | | | 1 (Home) | [address] | + +--------+ +--------+ + + Advance Directives + + + + + | Type | Date Recorded | Patient | Explanation | | | | Piece Meat Trimmer | | + + + + + | Power of | | | | | Dental Services Director | | | | + + + + + | Advance | 01/22/2018 3:14 | | From Bernie | | Directive | PM | | | + + + + +
--- OUTSIDE RECORDS SUMMARY | ~2019-09-12 | XMS | Encounter Summary ---
Demographics + + + | Address | [address] | | | [place] [address] | + + + | Home Phone [...] Team Providers + +------+ + | Care Cardiology Physician Assistant Name | Role | Phone | [...] | CENTER [address] | [facility] | | | | | [place], [place] | [place] [address] | | | | | [address] | [phone] | | | | | [phone] | | | +--------+ + + + [...] | | | | | | [place] [address] | | | | | | [phone] | | | | | | | | +--------+---------+ + + + | 07/13/ | Office | Neurology | Garth Vinson MD | | | 2019 | Visit | | [address] | | | | | | [place] | | | | | | [phone] | | | | | | | | +--------+---------+ + + + documented as of this encounter Visit Diagnoses Not on filedocumented in this encounter"
--- OUTSIDE RECORDS SUMMARY | ~2019-09-12 | XMS | Encounter Summary ---
Demographics + + + | Address | [address] | | | [place] [address] | + + + | Home Phone [...] Team Providers + +------+ + | Care Doctor Of Radiology Name | Role | Phone | + [...] | | | | [place], [place] | [address] | unspecified | | | | [address] | [phone] | chronicity, with | | | | [phone] | | sciatica presence | | | [...] | | | | | | [place] [address] | | | | | | [phone] | | | | | | | | +--------+---------+ + + + | 05/08/ | Office | Neurology | Garth Vinson MD | | | 2019 | Visit | | [address] | | | | | | [place], [place] | | | | | | [address] | | | | | | | [...]
--- OUTSIDE RECORDS SUMMARY | ~2019-09-12 | XMS | Encounter Summary ---
Demographics + + + | Address | [address] [facility] | | | [place] [address] | + + + | Home Phone [...] Providers + +------+ + | Care Supervisor Assembly Name | Role | Phone | + +------+ + | Yair Gleason MD | PCP | | + +------+ + Encounter Details +--------+ + + + + | Date | Type | Department | Care Team | Description | +--------+ + + + + | 01/19/ | Hospital | [place] [facility] | Yair Gleason, | Breast cancer | | 2018 | Encounter | Hospital Mammography | MD 2010 | screening | | | | [address] | [place], [place] | | | | | [place], [place] | [address] | | | | | [address] | [phone] | | | | | [phone] | | | +--------+ + + + [...] | | | | | | [address] [facility], | | | | | | [place] [address] | | | | | | [phone] | | | | | | | | +--------+---------+ + + + | 05/08/ | Office | Neurology | Garth Vinson MD | | | 2019 | Visit | | [address] | | | | | | [place] | | | | | | [address] | | | | | | | [...]
--- OUTSIDE RECORDS SUMMARY | ~2019-09-12 | XMS | Encounter Summary ---
Demographics + + + | Address | [address] [facility] [facility] | | | [place] [address] | + + + | Home Phone [...] Team Providers + +------+ + | Care Rn Pool Name | Role | Phone | + [...] | | | [place], [place] | [address] | | | | | [address] | [phone] | | | | | [phone] | | | +--------+ + + + [...] | | | | | | [place] [address] | | | | | | [phone] | | | | | | | | +--------+---------+ + + + | 05/08/ | Office | Neurology | Garth Vinson MD | | | 2019 | Visit | | [address] | | | | | | [place] | | | | | | [address] | | | | | | | | +--------+---------+ + + + documented as of this encounter Visit Diagnoses Not on filedocumented in this encounter"
--- OUTSIDE RECORDS SUMMARY | ~2019-09-12 | XMS | Encounter Summary ---
Demographics + + + | Address | [address] [facility] [facility] | | | [place] [address] | + + + | Home Phone [...] Team Providers + +------+ + | Care Care Coordination Manager Name | Role | Phone | [...] | | | | [place], [place] | [address] | | | | | [address] | [phone] | | | | | [phone] | | | +--------+ + + + [...] | | | | | | [address] [facility], | | | | | | [place] [address] | | | | | | [phone] | | | | | | | | +--------+---------+ + + + | 05/08/ | Office | Neurology | Garth Vinson MD | | | 2019 | Visit | | [address] | | | | | | [place] | | | | | | [address] | | | | | | | [...]
--- OUTSIDE RECORDS SUMMARY | ~2019-09-12 | XMS | Encounter Summary ---
Demographics + + + | Address | [address] [facility] | | | [place] [address] | + + + | Home Phone [...] Providers + +------+ + | Care Chief Technologist Name | Role | Phone | + +------+ + PCP | Unavailable | + +------+ + Encounter Details +--------+ + + + + | Date | Type | Department | Care Team | Description | +--------+ + + + + | 06/10/ | Hospital | [facility] | [place], | | | 2012 | Encounter | [facility] | Hiro Mariano, | | | | | [facility] [address] | [address] | | | | | [address] [facility], | [place], [place] | | | | | [place] [address] | [address] | | | | | [phone] | [phone] | | | | | | | [...] | | | | | | [place] [address] | | | | | | [phone] | | | | | | | | +--------+---------+ + + + | 05/08/ | Office | Neurology | Garth Vinson MD | | | 2019 | Visit | | [address] | | | | | | [place] | | | | | | [address] | | | | | | | | +--------+---------+ + + + documented as of this encounter Visit Diagnoses Not on filedocumented in this encounter"
[~2019-09-12 15:07] MED LIST changes: +GLUCOPHAGE500 MG; +TROKENDI XR25 MG PO
[2019-09-12] MEDS ORDERED: ULTRAM50 MG PO (16:47)
== END 2019-09-12 17:06 | disposition home or self-care (01) ==
LOC: ED 15:07
DX: S62.325A Displaced fracture of shaft of fourth metacarpal bone, left hand, initial encounter for closed fracture (principal); S00.83XA Contusion of other part of head, initial encounter; W01.0XXA Fall on same level from slipping, tripping and stumbling without subsequent striking against object, initial encounter; Z88.5 Allergy status to narcotic agent; Z91.030 Bee allergy status; Z79.82 Long term (current) use of aspirin; Z79.84 Long term (current) use of oral hypoglycemic drugs
CPT/HCPCS: 29125; 70450; 73130; 99284-25

== ENCOUNTER 2020-04-10 00:14 | Emergency (ER) | payer MEDICARE ==
[~2020-04-10] VITALS: Ht 154.9 cm; Wt 47.6 kg
[~2020-04-10 00:14] MED LIST changes: +ULTRAM50 MG PO
== END 2020-04-10 02:18 | disposition home or self-care (01) ==
LOC: ED 00:14
DX: G40.409 Other generalized epilepsy and epileptic syndromes, not intractable, without status epilepticus (principal); Z88.5 Allergy status to narcotic agent; Z91.030 Bee allergy status; Z79.899 Other long term (current) drug therapy; Z79.82 Long term (current) use of aspirin; Z79.84 Long term (current) use of oral hypoglycemic drugs
CPT/HCPCS: 80053; 81001; 85025; 99284; G0480

== ENCOUNTER 2020-04-10 10:30 | Emergency (ER) | payer MEDICARE ==
[~2020-04-10] VITALS: Ht 154.9 cm; Wt 47.6 kg
== END 2020-04-10 11:52 | disposition home or self-care (01) ==
LOC: ED 10:30
DX: S93.401A Sprain of unspecified ligament of right ankle, initial encounter (principal); Z88.5 Allergy status to narcotic agent; Z91.030 Bee allergy status; Z79.899 Other long term (current) drug therapy; Z79.82 Long term (current) use of aspirin; Z79.84 Long term (current) use of oral hypoglycemic drugs; X58.XXXA Exposure to other specified factors, initial encounter
CPT/HCPCS: 73610; 99283-25

== ENCOUNTER 2020-05-21 17:41 | Emergency (ER) | payer MEDICARE ==
[~2020-05-21] VITALS: Ht 154.9 cm; Wt 47.6 kg
--- OUTSIDE RECORDS SUMMARY | ~2020-05-21 | XMS | Encounter Summary ---
Demographics + + + | Address | [address] [facility] | | | [place] [address] | + + + | Home Phone | | + + + | Preferred Language | Unknown | + + + | Marital Status | | + + + | Jewish Affiliation | 1077 | + + + | Race | Unknown | + + + | Ethnic Group | Unknown | + + + Author + + + | Author | [facility] | | | and [place] | + + + | Organization | [facility] | | | and [place] | + + + | Address | Unknown | + + + | Phone | Unavailable | + + + Support + + +---------+ + | Name | Relationship | Address | Phone | + + +---------+ + | Williamalexa Buckner | ECON | Unknown | | + + +---------+ + | Yohannes Kyree | ECON | Unknown | | + + +---------+ + Care Team Providers + +------+ + | Care Comfort Station Supervisor Name | Role | Phone | + +------+ + PCP | Unavailable | + +------+ + Encounter Details +--------+ + + + + | Date | Type | Department | Care Team | Description | +--------+ + + + + | 01/08/ | Hospital | [facility] | Levon Araujo, MARITZA | | | 2016 | Encounter | [facility] | [address] | | | | | [address] [place] [address] | [place], [place] | | | | | [place], [place] | [address] | | | | | [address] | [phone] | | | | | [phone] | | | +--------+ + + + + Social History + +-------+ +--------+------+ | Tobacco Use | Types | Packs/Day | Years | Date | | | | | Used | | + +-------+ +--------+------+ | Never Assessed | | | | | + +-------+ +--------+------+ + + + | Sex Assigned at | Date Recorded | | | | + + + | Not on file | | + + + documented as of this encounter Medications at Time of Discharge + + + +---------+ + + | Medication | Sig | Dispensed | Refills | Start | End Date | | | | | | Date | | + + + +---------+ + + | aspirin 325 mg EC | Take by mouth. | | 0 | 04/16/20 | | | tablet | | | | 13 | | + + + +---------+ + + | fish oil 1,000 mg | Take by mouth. | | 0 | 08/26/20 | | | capsule | | | | 13 | | + + + +---------+ + + | metoprolol | Take by mouth. | | 0 | 06/03/20 | | | tartrate (LOPRESSOR) | | | | 12 | | | 25 mg tablet | | | | | | + + + +---------+ + + | topiramate | Take 25 mg by mouth. | | 0 | 08/30/20 | | | (TOPAMAX) 25 mg | | | | 14 | 8 | | tablet | | | | | | + + + +---------+ + + documented as of this encounter Plan of Treatment Not on filedocumented as of this encounter Visit Diagnoses Not on filedocumented in this encounter"
--- OUTSIDE RECORDS SUMMARY | ~2020-05-21 | XMS | Encounter Summary ---
Demographics + + + | Address | [address] | | | [place] [address] | + + + | Home Phone | | + + + | Preferred Language | Unknown | + + + | Marital Status | | + + + | Taoism Affiliation | 1077 | + + + | Race | Unknown | + + + | Ethnic Group | Unknown | + + + Author + + + | Author | [facility] | | | and [place] | + + + | Organization | [facility] | | | and [place] | + + + | Address | Unknown | + + + | Phone | Unavailable | + + + Support + + +---------+ + | Name | Relationship | Address | Phone | + + +---------+ + | Williamalexa Buckner | ECON | Unknown | | + + +---------+ + | Yohannes Adorno | ECON | Unknown | | + + +---------+ + Care Team Providers + +------+ + | Care Ceramic Maker Demonstrator Name | Role | Phone | + +------+ + | Yair Gleason MD | PCP | | + +------+ + Encounter Details +--------+ + + + + | Date | Type | Department | Care Team | Description | +--------+ + + + + | 01/01/ | Hospital | [facility] | Yair Gleason, | Right knee pain, | | 2018 | Encounter | [facility] XRAY [address] | MD [address] | unspecified | | | | [address] | [place], [place] | chronicity | | | | [place], [place] | [address] | | | | | [address] | [phone] | | | | | [phone] | | | +--------+ + + + + Social History + +-------+ +--------+------+ | Tobacco Use | Types | Packs/Day | Years | Date | | | | | Used | | + +-------+ +--------+------+ | Never Smoker | | | | | + +-------+ +--------+------+ + +---+---+---+ | Smokeless Tobacco: | | | | | Never Used | | | | + +---+---+---+ + + +---------+ + | Alcohol Use | Drinks/Week | oz/Week | Comments | + + +---------+ + | No | | | | + + +---------+ + + + + | Sex Assigned at [...] + + + +---------+ + + | | | | 0 | 11/17/19 | | | hydroCHLOROthiazide | | | | 18 | | | 25 mg tablet | | | | | | + + + +---------+ + + | levothyroxine | Take 88 mcg by | | 0 | | | | (SYNTHROID) 88 mcg | mouth. | | | | | | tablet | | | | | | + + + +---------+ + + | lovastatin | | | 0 | 10/24/20 | | | (MEVACOR) 20 mg | | | | 17 | | | tablet | | | | | | + + + +---------+ + + | metFORMIN | | | 0 | 10/28/19 | | | (GLUCOPHAGE) 500 mg | | | | 18 | | | tablet | | | | | | + + + +---------+ + + | metoprolol | Take by mouth. 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 | + +--------+ + + + documented in this encounter Results XR Knee Right 3 Vw (01/01/2018 3:44 PM PST) + + | Specimen | + + | | + + + + + | Impressions | Performed At | + + + | IMPRESSION: 1. Mild osteoarthritis right medial, and patellofemoral | [facility] | | joint. 2. Osteoarthritis left patellofemoral joint. 3. The bones | | | appear demineralized. Dictated by: Conrado Benz | | | | | + + + + + + | Narrative | Performed At | + + + | EXAMINATION: XR KNEE RIGHT 3 VW HISTORY: RT KNEE PAIN | [facility] | | COMPARISON STUDY: Knee 03/20/2016 FINDINGS: Right knee: Mild | | | medial knee narrowing is noted. Mild narrowing at the patellofemoral | | | articulation. No acute bone finding identified. The bones appear | | | demineralized. Left knee: Joint narrowing present at the | | | patellofemoral articulation. . | | + + + + + | Procedure Note | + + | Eliazar Falk Results In - 01/01/2018 4:14 PM PST EXAMINATION:XR KNEE RIGHT 3 | | VWHISTORY:RT KNEE PAINCOMPARISON STUDY:Knee 03/20/2016FINDINGS:Right knee: Mild medial | | knee narrowing is noted. Mild narrowing at the patellofemoral articulation. No acute | | bone finding identified. The bones appear demineralized.Left knee: Joint narrowing | | present at the patellofemoral articulation. .IMPRESSION: IMPRESSION:1. Mild | | osteoarthritis right medial, and patellofemoral joint.2. Osteoarthritis left | | patellofemoral joint.3. The bones appear demineralized.Dictated by: Conrado | | Demar | | | |FINDINGS: | |Right knee: Mild medial knee narrowing is noted. Mild narrowing at the patellofemoral maura culation. No acute bone finding identified. The bones appear demineralized. | |Left knee: Joint narrowing present at the patellofemoral articulation. . | | | |IMPRESSION: | |IMPRESSION: | |1. Mild osteoarthritis right medial, and patellofemoral joint. | |2. Osteoarthritis left patellofemoral joint. | |3. The bones appear demineralized. | | | |Dictated by: Conrado Benz | | | | | + + + +---------+ + + | Performing | Address | City/State/Zipcode | Phone Number | | Organization | | | | + +---------+ + + | [facility] | | | | + +---------+ + + documented in this encounter Visit Diagnoses + + | Diagnosis | + + | Right knee pain, unspecified chronicity | + + documented in this encounter"
--- OUTSIDE RECORDS SUMMARY | ~2020-05-21 | XMS | Encounter Summary ---
Demographics + + + | Address | [address] | | | [place] [address] | + + + | Home Phone | | + + + | Preferred Language | Unknown | + + + | Marital Status | | + + + | Restorationist Affiliation | 1077 | + + + | Race | Unknown | + + + | Ethnic Group | Unknown | + + + Author + + + | Author | [facility] | | | and [place] | + + + | Organization | [facility] | | [...] Team Providers + +------+ + | Care Bottle Line Worker Name | Role | Phone | + +------+ + PCP | Unavailable | + +------+ + Encounter Details +--------+ + + + + | Date | Type | Department | Care Team | Description | +--------+ + + + + | 03/26/ | Hospital | [facility] | Juan Pablo Singh, | | | 2016 | Encounter | [facility]IC | [address] , | | | | | [address] | [place], [place] | | | | | [place], [place] | [address] | | | | | [address] | [phone] | | | | | [phone] | | | +--------+ + + + [...]
--- OUTSIDE RECORDS SUMMARY | ~2020-05-21 | XMS | Encounter Summary ---
Demographics + + + | Address | [address] | | | [place] [address] | + + + | Home Phone | | + + + | Preferred Language | Unknown | + + + | Marital Status | | + + + | Gnosticism Affiliation | 1077 | + + + | Race | Unknown | + + + | Ethnic Group | Unknown | + + + Author + + + | Author | [facility] | | | and [place] | + + + | Organization | [facility] | | | and [...] Team Providers + +------+ + | Care Functional Director Name | Role | Phone | + +------+ + | Yair Gleason MD | PCP | | + +------+ + Encounter Details +--------+ + + + + | Date | Type | Department | Care Team | Description | +--------+ + + + + | 01/06/ | Hospital | [facility] | Yair Gleason, | Acute pain of right | | 2018 | Encounter | Hospital Ultrasound | MD [address] | knee | | | | [address] | [place], [place] | | | | | [place], [place] | [address] | | | | | [address] | [phone] | | | | | [phone] | | | +--------+ + + + [...] | + +--------+ + + + | US EXTREMITY | Routin | 01/06/2018 | Acute pain of | Results for this | | NONVASCULAR LIMITED | e | 1:21 PM | right knee | procedure are in the | | RIGHT | | PDT | | results section. | + +--------+ + + + documented in this encounter Results US Extremity Nonvascular Limited Right (01/06/2018 1:21 PM PDT) + + | Specimen | + + | | + + + + + | Impressions | Performed At | + + + | IMPRESSION: Finding compatible with popliteal/Cotto's cyst. | [facility] | | Dictated by: Conrado Benz | | + + + + + + | Narrative | Performed At | + + + | EXAMINATION: US EXTREMITY NONVASCULAR LIMITED RIGHT HISTORY: | [facility] | | cystic mass behind knee COMPARISON STUDY: None FINDINGS: | | | Heterogeneous echogenicity 2.3 x 1.6 cm structures noted dorsal to the | | | knee joint. No Doppler flow is seen. | | + + + + + | Procedure Note | + + | Dileep, Rad Results In - 01/06/2018 1:46 PM PDT EXAMINATION:US EXTREMITY NONVASCULAR | | LIMITED RIGHTHISTORY:cystic mass behind kneeCOMPARISON STUDY:NoneFINDINGS:Heterogeneous | | echogenicity 2.3 x 1.6 cm structures noted dorsal to the knee joint. No Doppler flow is | | seen.IMPRESSION: IMPRESSION:Finding compatible with popliteal/Cotto's cyst.Dictated by: | | Conrado Benz | | | |COMPARISON STUDY: | |None | | | |FINDINGS: | |Heterogeneous echogenicity 2.3 x 1.6 cm structures noted dorsal to the knee joint. No Dopp ler flow is seen. | | | |IMPRESSION: | |IMPRESSION: | |Finding compatible with popliteal/Cotto's cyst. | | | |Dictated by: Conrado Benz | | | | | + + + +---------+ + + | Performing | Address | City/State/Zipcode | Phone Number | | Organization | | | | + +---------+ + + | [facility] | | | | + +---------+ + + documented in this encounter Visit Diagnoses + + | Diagnosis | + + | Acute pain of right knee | + + documented in this encounter"
--- OUTSIDE RECORDS SUMMARY | ~2020-05-21 | XMS | Encounter Summary ---
Demographics + + + | Address | [address] | | | [place] [address] | + + + | Home Phone | | + + + | Preferred Language | Unknown | + + + | Marital Status | | + + + | Jainism Affiliation | 1077 | + + + | Race | Unknown | + + + | Ethnic Group | Unknown | + + + Author + + + | Author | [facility] | | | and [place] | + + + | Organization | [facility] | | [...] Team Providers + +------+ + | Care Materials Recycler Name | Role | Phone | + +------+ + PCP | Unavailable | + +------+ + Encounter Details +--------+ + + + + | Date | Type | Department | Care Team | Description | +--------+ + + + + | 01/09/ | Hospital | [facility] | Levon Araujo, MARITZA | | | 2017 | Encounter | [facility] | [address] | | | | | [address] | [place], [place] | | | | | [place], [place] | [address] | | | | | [address] | [phone] | | | | | [phone] | | | +--------+ + + + [...] + +--------+ + + + | XR HIP LEFT 2-3 | Routin | 01/09/2017 | | Results for this | | VIEWS | e | 3:03 PM | | procedure are in the | | | | PDT | | results section. 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 No periprosthetic fracture. No evidence of | | | hardware loosening or failure. No subluxation. No dislocation. | | | Age appropriate bone mineral density. IMPRESSION: No acute | | | process.Uncomplicated appearance of arthroplasty changes. 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 No | | periprosthetic fracture. No evidence of hardware loosening or failure. No | | subluxation. No dislocation. Age appropriate bone mineral density. | | | | IMPRESSION: | | No acute process.Uncomplicated appearance of arthroplasty changes. | | | | | | JOB #: [id number] | | Digitally Released by: Ankur Hooker | | | | | | Read By: ANKUR HOOKER MD | | Date: 01/09/2017 16:28 | | | + + documented in this encounter Visit Diagnoses Not on filedocumented in this encounter"
--- OUTSIDE RECORDS SUMMARY | ~2020-05-21 | XMS | Encounter Summary ---
Demographics + + + | Address | [address] | | | [place] [address] | + + + | Home Phone | | + + + | Preferred Language | Unknown | + + + | Marital Status | | + + + | Hoahaoism Affiliation | 1077 | + + + | Race | Unknown | + + + | Ethnic Group | Unknown | + + + Author + + + | Author | [facility] | | | and [place] | + + + | Organization | [facility] | | | and [...] Team Providers + +------+ + | Care Gore Stitcher Name | Role | Phone | + +------+ + PCP | Unavailable | + +------+ + Encounter Details +--------+ + + + + | Date | Type | Department | Care Team | Description | +--------+ + + + + | 03/10/ | Hospital | [facility] | Sebas Donald | | | 2013 | Encounter | HOSPITAL EMERGENCY | MD [address] | | | | | C[address] | [facility] | | | | | [address] [place], [place] | [place] [address] | | | | | [address] | [phone] | | | | | [phone] | | | +--------+ + + + [...]
--- OUTSIDE RECORDS SUMMARY | ~2020-05-21 | XMS | Encounter Summary ---
Demographics + + + | Address | [address] | | | [place] [address] | + + + | Home Phone | | + + + | Preferred Language | Unknown | + + + | Marital Status | | + + + | Bahai Affiliation | 1077 | + + + | Race | Unknown | + + + | Ethnic Group | Unknown | + + + Author + + + | Author | [facility] | | | and [place] | + + + | Organization | [facility] | | | [...] Team Providers + +------+ + | Care Meat Supervisor Name | Role | Phone | + +------+ + PCP | Unavailable | + +------+ + Encounter Details +--------+ + + + + | Date | Type | Department | Care Team | Description | +--------+ + + + + | 11/26/ | Hospital | [facility] | Juan Pablo Singh, | | | 2017 | Encounter | [facility] OR[facility] | [address] , | | | | | [address] | [place], [place] | | | | | [place], [place] | [address] | | | | | [address] | [phone] | | | | | [phone] | | | +--------+ + + + [...]
--- OUTSIDE RECORDS SUMMARY | ~2020-05-21 | XMS | Encounter Summary ---
Demographics + + + | Address | [address] | | | [place] [address] | + + + | Home Phone | | + + + | Preferred Language | Unknown | + + + | Marital Status | | + + + | Nondenominational Affiliation | 1077 | + + + | Race | Unknown | + + + | Ethnic Group | Unknown | + + + Author + + + | Author | [facility] | | | and [place] | + + + | Organization | [facility] | | | and [...] Team Providers + +------+ + | Care Precision Assembler Name | Role | Phone | + +------+ + | Yair Gleason MD | PCP | | + +------+ + Reason for Visit + +--------+ + | Reason | Onset | Comments | | | Date | | + +--------+ + | Lab Results | 04/05/ | | | | 2019 | | + +--------+ + Encounter Details +--------+ + + + + | Date | Type | Department | Care Team | Description | +--------+ + + + + | 04/05/ | Telephone | [facility] | Garth Vinson MD | Lab Results | | 2019 | | HOSPITAL NEUROLOGY | [address] | | | | | CLINIC [address] | [place] | | | | | DR [place], | [address] | | | | | [place] [address] | | | | | | [phone] | | | +--------+ + + + [...] + + documented as of this encounter Miscellaneous Notes Telephone Encounter - Garth Vinson MD - 04/05/2019 3:10 PM PDTHusband called and I gave blood test results the with slightly low potassium 3.4 and to take bananasElectroni shirley signed by Garth Vinson MD at 04/05/2019 3:11 PM PDTdocumented in this encounter Plan of Treatment Not on filedocumented as of this encounter Visit Diagnoses Not on filedocumented in this encounter"
--- OUTSIDE RECORDS SUMMARY | ~2020-05-21 | XMS | Encounter Summary ---
Demographics + + + | Address | [address] | | | [place] [address] | + + + | Home Phone | | + + + | Preferred Language | Unknown | + + + | Marital Status | | + + + | Gnosticism Affiliation | 1077 | + + + | Race | Unknown | + + + | Ethnic Group | Unknown | + + + Author + + + | Author | [facility] | | | and [place] | + + + | Organization | [facility] | [...] Team Providers + +------+ + | Care Outdoor Recreation Specialist Name | Role | Phone | + +------+ + PCP | Unavailable | + +------+ + Encounter Details +--------+ + + + + | Date | Type | Department | Care Team | Description | +--------+ + + + + | 08/16/ | Hospital | [facility] | Yair Gleason, | | | 2014 | Encounter | HOSPITAL GENERIC OP | [address] | | | | | CONVERSION | [place] | | | | | DEPARTMENT [address] | [address] | | | | | [address] | [phone] | | | | | [place] | | | | | | [address] | | | | | | [phone] | | | +--------+ + + + [...]
--- OUTSIDE RECORDS SUMMARY | ~2020-05-21 | XMS | Encounter Summary ---
Demographics + + + | Address | [address] | | | [place] [address] | + + + | Home Phone | | + + + | Preferred Language | Unknown | + + + | Marital Status | | + + + | Alevism Affiliation | 1077 | + + + | Race | Unknown | + + + | Ethnic Group | Unknown | + + + Author + + + | Author | [facility] | | | and [place] | + + + | Organization | [facility] | | | [...] Team Providers + +------+ + | Care Medical Technician Assistant Name | Role | Phone | + +------+ + PCP | Unavailable | + +------+ + Encounter Details +--------+ + + + + | Date | Type | Department | Care Team | Description | +--------+ + + + + | 06/28/ | Hospital | [facility] | Juan Pablo Singh, | | | 2016 | Encounter | HOSPITAL GENERIC OP | [address] , | | | | | CONVERSION | [place] | | | | | DEPARTMENT [address] | [address] | | | | | [address] | [phone] | | | | | [place] | | | | | | [address] | | | | | | [phone] | | | +--------+ + + + [...] + +--------+ + + + | XR CHEST 2 VIEWS | Routin | 06/28/2016 | | Results for this | | | e | 3:36 PM | | procedure are in the | | | | PDT | | results section. | + +--------+ + + + documented in this encounter Results XR Chest 2 VW (06/28/2016 3:36 PM PDT) + + | Specimen | + + | | + + + + + | Narrative | Performed At | + + + | ORIGINAL PA AND LATERAL CHEST: HISTORY: | | | Preop screening. COMPARISON: 08/17/2012. FINDINGS: The lungs | | | are clear. No pleural effusion. No pneumothorax. The | | | cardiomediastinal silhouette is normal. No acute bone process. | | | There is multilevel endplate productive change. Surgical clips | | | suggest prior cholecystectomy. IMPRESSION: No evidence of an | | | acute cardiopulmonary process. No interval change. D: | | | 06/29/2016 JOB #: [id number] Read By: KIM HOOKER MD | | | Released By: KIM HOOKER MD Date: 06/29/2016 21:38 | | + + + + + | Procedure Note | + + | Dileep, Rad Results In - 09/03/2017 11:25 PM PST ORIGINAL PA AND LATERAL CHEST: | | HISTORY:Preop screening. COMPARISON:08/17/2012. FINDINGS:The lungs are clear. No | | pleural effusion. No pneumothorax. The cardiomediastinal silhouette is normal. No | | acute bone process. There is multilevel endplate productive change. Surgical clips | | suggest prior cholecystectomy. IMPRESSION:No evidence of an acute cardiopulmonary | | process. No interval change. JOB #: [id number] Read By: KIM HOOKER, | | MD Released By: KIM HOOKER MDDate: 06/29/2016 21:38 | |HISTORY: | |Preop screening. | | | |COMPARISON: | |08/17/2012. | | | |FINDINGS: | |The lungs are clear. No pleural effusion. No pneumothorax. The cardiomediastinal silhoue tte is normal. No acute bone process. There is multilevel endplate productive change. Sami gical clips suggest prior cholecystectomy. | | | |IMPRESSION: | |No evidence of an acute cardiopulmonary process. No interval change. | | | | | |JOB #: [id number] | | | |Read By: KIM HOOKER MD | | | |Released By: KIM HOOKER MD | |Date: 06/29/2016 21:38 | | | | | + + documented in this encounter Visit Diagnoses Not on filedocumented in this encounter"
--- OUTSIDE RECORDS SUMMARY | ~2020-05-21 | XMS | Encounter Summary ---
Demographics + + + | Address | [address] | | | [place] [address] | + + + | Home Phone | | + + + | Preferred Language | Unknown | + + + | Marital Status | | + + + | Alevism Affiliation | 1077 | + + + | Race | Unknown | + + + | Ethnic Group | Unknown | + + + Author + + + | Author | [facility] | | | and [place] | + + + | Organization | [facility] | | | [...] Team Providers + +------+ + | Care Rigger Apprentice Name | Role | Phone | + +------+ + PCP | Unavailable | + +------+ + Encounter Details +--------+ + + + + | Date | Type | Department | Care Team | Description | +--------+ + + + + | 07/25/ | Hospital | [facility] | Juan Pablo Singh, | | | 2016 | Encounter | HOSPITAL ORTHOPEDIC | [address] , | | | | | [address] | [place], [place] | | | | | [place], [place] | [address] | | | | | [address] | [phone] | | | | | [phone] | | | +--------+ + + + [...]
--- OUTSIDE RECORDS SUMMARY | ~2020-05-21 | XMS | Encounter Summary ---
Demographics + + + | Address | [address] | | | [place] [address] | + + + | Home Phone | | + + + | Preferred Language | Unknown | + + + | Marital Status | | + + + | Anglican Affiliation | 1077 | + + + | Race | Unknown | + + + | Ethnic Group | Unknown | + + + Author + + + | Author | [facility] | | | and [place] | + + + | Organization | [facility] | | | [...] Team Providers + +------+ + | Care Neonatal Nurse Name | Role | Phone | + +------+ + PCP | Unavailable | + +------+ + Encounter Details +--------+ + + + + | Date | Type | Department | Care Team | Description | +--------+ + + + + | 03/23/ | Hospital | [facility] | Sebas Donald | | | 2012 | Encounter | HOSPITAL EMERGENCY | MD [address] | | | | | C[address] | [facility] | | | | | DR [place], [place] | [place] [address] | | | | | [address] | [phone] | | | | | [phone] | | | +--------+ + + + [...]
--- OUTSIDE RECORDS SUMMARY | ~2020-05-21 | XMS | Encounter Summary ---
Demographics + + + | Address | [address] | | | [place] [address] | + + + | Home Phone [...] Team Providers + +------+ + | Care Hot Metal Mixer Operator Name | Role | Phone | [...] | | | [place] | [address] | | | | | [address] | | | | | | [phone] | | | +--------+ + + + [...]
--- OUTSIDE RECORDS SUMMARY | ~2020-05-21 | XMS | Encounter Summary ---
Demographics + + + | Address | [address] | | | [place] [address] | + + + | Home Phone | | + + + | Preferred Language | Unknown | + + + | Marital Status | | + + + | Quaker Affiliation | [phone] | + + + [...] Team Providers + +------+ + | Care Onshore Diver Name | Role | Phone | + +------+ + | Yair Gleason MD | PCP | | + +------+ + Reason for Visit + + + | Reason | Comments | + + + | Transient Ischemic | | | Attack | | + + + Encounter Details +--------+---------+ + + + | Date | Type | Department | Care Team | Description | +--------+---------+ + + + | 11/24/ | Office | [facility] | Garth Vinson MD | Other specified | | 2018 | Visit | [facility] | [address] | 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[facility] [address] | [place] | ischemias (Primary | | | | [address] [place], | [phone] | Dx); Complex partial | | | | [place] [address] | | seizures with | | | | [phone] | | consciousness | | | | | | impaired (HCC); | | | | | | Seizure (HCC); | | | | | | Seizure (HCC); 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 | | | | | | without coma, | | | | | | without long-term | | | | | | current use of | | | | | | insulin (HCC) | +--------+---------+ + + + Social History [...] + + + | Blood Pressure | 130/80 | 11/24/2017 3:03 PM | | | | | PST | | + + + + + | Pulse | 80 | 11/24/2017 3:03 PM | | | | | PST | | + + + + + | Temperature | - | - | | + + + + + | Respiratory Rate | 20 | 11/24/2017 3:03 PM | | | | | PST | | + + + + + | Oxygen Saturation | 98% | 11/24/2017 3:03 PM | | | | | PST | | + + + + + | Inhaled Oxygen | - | - | | | Concentration | | | | + + + + + | Weight | 49.4 kg (109 lb) | 11/24/2017 3:03 PM | | | | | PST | | + + + + + | Height | 157.5 cm (5' 2") | 11/24/2017 3:03 PM | | | | | PST | | + + + + + | Body Mass Index | 19.94 | 11/24/2017 3:03 PM | | | | | PST | | + + + + + documented in this encounter Patient Instructions Patient Instructions Garth Vinson MD - 11/24/2017 3:00 PM PSTFormatting of this note mi ght be different from the original. Patient Instructions [facility] Dr. Garth Vinson, Neurologist Date:11/24/2017 Name:Cristina Christensen Dudley :..1940 Please schedule next follow up appt with Dr. Vinson in 6 months for Hx Seziure, complex partia l with secondary generalization, last seizure 2 yrs ago Diabetic polyneuropathy, stable S/P cataract removal, right 10/2017 Hypertension Hypothyroidism Hx TIA Suggest reading newspapers. magazines, perform word find exercises such as cross word puzz le, and scrabble, other puzzle games like WebCurfewu, Banno. Play computer/mobile applications such as [employer] and [employer] GAMES Gave medical education to avoid sleep deprivation, stimulants, alcohol, or any type of head trauma Any Questions please call ARIANA Chapin or Dr. Vinson at [facility] What is a Partial Seizure (Focal Seizure)? In a partial seizure, excessive signals in the brain cause symptoms in the body. Have you or someone else noticed part of your body moving or shaking involuntarily? Do you have short periods when you feel confused, have memory loss, or appear to act unusual? Are y ou sometimes unaware of your actions or do you even pass out for a few moments? If so, you m ay be experiencing partial seizures. These occur when you have a condition called epilepsy. Partial seizures can be scary and frustrating. The good news is that they can usually be co ntrolled. How the brain works Your brain uses short bursts of electricity as signals. These signals allow areas of the br ain to communicate with each other. These signals also travel from the brain to the rest of your body. When part of the brain overloads Sometimes the signals become excessive. When this happens in one area of the brain, it is c alled a partial seizure. The excessive signals cause part of the body to work abnormally. Th en you may twitch, feel confused, or pass out for a moment. Partial seizures can present in many ways. Simple partial seizuresoften have only a few minor symptoms, such as hand twitc savi, smelling an unusual odor, or feeling a sense of dj-vu. "Simple"means there is no loss of consciousness. Complex partial seizures are often associated with more abnormal beh avior. They may also affect your mental functioning to some degree."Complex"means youm ay have a lowered level of consciousness or loss of memory. Partial seizures can be controlled Seizures can be caused by irritation or damage to the brain from trauma, scar formation, tu mors, stroke, or infection.Usually the cause is unknown. However, most partial seizures ca n be successfully treated. With treatment, most people with seizures lead normal, fulfilling lives. Date Last Reviewed: 08/01/201519993347-8567 [employer]. [address] [place] [address], [place] [address]. All righ ts reserved. This information is not intended as a substitute for professional medical care. Always follow your healthcare professional's instructions. Transient IschemicAttack (TIA) Your symptoms were caused by a TIA, ormini-stroke. Even though your symptoms have gone aw ay, this condition is as serious as a full stroke. It means you are more likely to have a fu ll stroke. About 1 in 3 people who have a TIA go on to have a full stroke. And 4% to 10% of those people will have the stroke within 2 days. A TIAis caused when something decreases or blocks blood flowto a part of your brain. A TIA often happens when a blood clot travels to a blood vessel in the brain. The clot reduces or blocks blood flow. This causes the symptoms you had. After a short while, the clot disso lves. Bloodflows again, and the symptoms go away. People with hardening of the arteries (a therosclerosis) are at higher risk for a TIA. So are people who have anirregular heartbeat called atrial fibrillation. A TIA causessymptoms similar to a stroke, but theylast less than 24 hours. A full strok e causes symptoms that last more than 24 hours and may be permanent. But even if your sympto ms only lasted a short time, the TIA may have damagedyour brain tissue. Once you have had a TIA, you are at risk of having a full stroke. You will needtests to look atthe blood f low to your brain. The testscan alsorule out other causes of your symptoms. The tests ma y include an ultrasound of the arteries in your neck and an evaluation of your heart. They m ay also include a CT scan of your brain, an MRI scan of your brain, or both. If your healthc are provider finds problems, he or she will recommend treatment with medicines, procedures, or both. Your provider may prescribe medicines to reduce your chance of having another TIA and strok e. These may include medicines that prevent blood clots, such as antiplatelet medicines and blood thinners (anticoagulants). Your doctor may recommend other treatment. This may include a procedure to open up a blocked artery in your neck. Home care The following guidelines will help you take care of yourself at home: Take any medicines your doctor has prescribed as directed. These may include antiplatele t medicines or medicines for other conditions, such as high blood pressure or high cholester ol. A TIA is a serious event that puts you at risk of having a full stroke. Because of this, it is important to take steps to help prevent a stroke from happening. Your doctor will loo k at all ofyour risk factors when deciding on what other treatment you may need. Ways to reduce your risk for stroke High blood pressure, diabetes, high cholesterol, heavy drinking,and smoking are risk fact ors for stroke and heart disease. You can control these by taking medicines and making diet and lifestyle changes. One way to help prevent a strokeis totake aspirin or a similar me dicine every day. But don't take daily aspirin unless your healthcare provider tells you to. Yourprovider will work with you to make lifestyle changes to help prevent a stroke. Diet Your healthcare provider will give you information about changes you may need to make to yo ur diet. You may need to see a registered dietitian for help with diet changes. Changes may include: Eating lessfat and cholesterol Eating less salt (sodium). Thisis especially importantif you have high blood pressur e. Eating more fresh fruits and vegetables Eating lean proteins, such as fish, poultry,beans, and peas Eating less red meat and processed meats Using low-fat dairy products Using vegetable and nut oils in limited amounts Limiting how many sweets and processed foods such as chips, cookies,and baked goods yo u eat Limiting how much alcohol you drink Physical activity Your healthcare provider may recommend that you get more exercise if you have not been as a ctive as possible. He or she may suggest that you get40 minutes ofmoderate to vigorous physical activityeach day. You should do thisat least 3 to 4 days a week. A few examples of moderate to vigorousexercise are: Walking at a brisk pace, about 3 to 4 miles per hour Jogging or running Swimming or water aerobics Hiking Dancing Martial arts Tennis Riding a bike Other ways to reduce your risk Weight management. If you are overweight or obese, your healthcare provider will work wi th you to lose weight and lower your body mass index (BMI) to a normal or near-normal level. Making diet changes and increasing physical activity can help. Smoking. If you smoke, break the habit. Enroll in a stop smoking program toimprove you r chances of success. Stress. Learn how to manage your stress. This willhelp you deal with stress at home an d at work. Follow-up care Call your doctor for an appointment in the next few days for another evaluation, or as advi sed. This is to make a plan for preventing another TIA or stroke. You may need to see aneu rologist to follow up on your TIA. A neurologist is a doctor who specializes in treating bra in and nervous system problems. You may need other tests or procedures. If you had an X-ray, CT scan, MRI scan, or ECG (electrocardiogram), a specialist will revie w it. You ll be told of any new findings that will affect your care. Call 911 Call 911 if any of these occur: Any of your TIA symptoms return New problems with speech, vision, walking, or weakness or numbness of the face or on one side of the body Severe headache, fainting spell, dizziness, or seizure Date Last Reviewed: 07/27/201619996455-6386 [employer]. [address] [place] [address], [place] [address]. All righ ts reserved. This information is not intended as a substitute for professional medical care. Always follow your healthcare professional's instructions. Diabetes and Heart Disease Take your medicines as directed each day, even if you feel fine. If you have diabetes, you aretwo to four times more likely to have heart disease than kira eone without diabetes. This higher risk is due to diabetes, but it is also due to other risk factors for heart disease that happen in people with diabetes. But there s good news. You can helpcontrol your health risks by making some changes in your life. You can take steps to reduce your risk of heart disease by half similar to the risk in people who don't have diabetes. Your main risk factors Three major risk factors for heart disease are high blood sugar, high blood pressure, and h igh levels of lipids. By keeping risk factors under control, you can help keep your heart an d arteries healthy. This may reduce your chances of a heart attack. Blood sugar.High blood sugar can make artery puga tough and rough. Plaque (waxy mater ial in the blood) can then build up along the artery puga, making it harder for blood to fl ow through the arteries. Having high blood sugar increases the chances of having high blood pressure and high cholesterol. Blood pressure. When blood pressure is high all the time it causes your heart to work robertson rder to pump blood. Artery puga become damaged. This increases the risk for plaque build up . Lipids.The body needs some lipids in the blood to stay healthy. But lipid levels that are too high can damage the artery puga. Lipids include cholesterol and triglycerides. Ther e are two kinds of cholesterol. LDL ( bad ) cholesterol can damage the arteries. But HDL ( good ) cholesterol helps clear LDL cholesterol from the blood vessels. This helps acacia p the arteries healthy. When blood sugar is high, the level of triglycerides in the blood ma y also be high. High blood triglyceride levelscan cause plaque to form. Other risk factors Certain lifestyle factors can increase levels of your blood sugar, blood pressure, and lipi ds. Such increases raise your risk of heart disease: Smokingdamages the lining of your arteries. This allows plaque to build up in the joe ry puga. Smoking also constricts (narrows) the arteries. This can raise blood pressure and cause chest pain or angina. Smoking also increases your risk of getting type 2 diabetes. Not being activemakes it harder for your heart to do its work. Inactivity is linked to many other risk factors, such as high blood pressure and poor cholesterol levels. Inactivit y also increases your risk of getting type 2 diabetes. Being overweightmakes it harder for your body to use insulin. It also makes your heart work too hard. Being overweight is also the main contributor to the development of type 2 d iabetes, Changes you can make Following a few simple steps can help keep your risk factors under control. Work with your healthcare team to reach your goals. Quitting smokingcould save your life. Smoking damages the lining of the blood vessels and raises blood pressure. Smoking also affects how your body uses insulin. This makes it robertson rder to keep blood sugar under control. If you smoke and need help quitting, talk to [facility]. Testing your blood sugar is the only way to know whether it is under control. Be sure to test your blood sugar yourself. Also get your blood tested in the lab, as directed. Monitoring your blood pressure and lipid levels can help you achieve safe levels. Visit your healthcare team as scheduled. Taking medicines as directed can help control blood sugar, blood pressure, blood clottin g, and/or cholesterol levels. Eating rightcan reduce your risk factors and help you lose weight. Try to limit the am ount of processed or refined carbohydrates you eat at one time. Cut back on your total calor ie intake. Eat foods low in saturated fat and cholesterol. Eat fiber, including vegetables a nd whole grains, and cut down on salt. A dietitian or nurse informatics educator can help form a meal plan that works for you even if you are on a low budget. Being activecan help reduce your weight, strengthen your heart, and lower your lipid l evels and blood pressure. Exercise and activity are good for your whole body. Talk to your [facility] about increasing your activity safely over time. Keeping your appointmentswith your healthcare provider helps you stay healthy. Go in f or checkups and lab tests as scheduled. Date Last Reviewed: 03/14/201619999260-2754 [employer]. [address] [place] [address], [place] [address]. All righ ts reserved. This information is not intended as a substitute for professional medical care. Always follow your healthcare professional's instructions. documented in this encounter Progress Notes Garth Vinson MD - 11/24/2017 3:00 PM PST Patient: Cristina Buckner Medical Record: [id number] Date of Services: 11/24/2017 Referring Doctor: Yair Gleason MD Chief Complaint: History of seizures, stable History of Present Illness: Miss Buckner was a 69-year-old right-handed lady, seen for neurologic evaluation,with history of seizures, complex partial with secondary generalization, controlled on Topamax 25 mg by mouth twice a day. Recent blood test was performed but try to get these results thru PCP, a s patient was unsure whether her Topamax level was drawn. Other past medical history of diabetic polyneuropathy though mild, presently on metformin f or diabetes control, hypertension, hypothyroidism, Hx TIA, no sequela, presently taking aspi rin 325 mg daily for stroke prophylaxis. She recently undergone a right cataract early this month and she is doing well. She was given medical education to avoid sleep deprivation, stimulants, alcohol, or any typ e of head trauma to do to avoid seizures in the future. Review of Systems: Denies headache, earache, nasal catarrh, diplopia, blurring of vision, d ysphagia, odynophagia, sore throat, neck masses, hearing loss, chest pain, palpitations, gabby rtness of breath, cough, hemoptysis, abdominal pain, diarrhea, constipation, bowel or bladde r dysfunction, hematuria, dysuria, lymphadenopathies, echhymoses, rashes, gait ataxia, and h omicidal or suicidal ideations. Present Medication: Current Outpatient Prescriptions Medication Sig Dispense Refill aspirin 325 mg EC tablet Take by mouth. fish oil 1,000 mg capsule Take by mouth. hydroCHLOROthiazide 25 mg tablet levothyroxine (SYNTHROID) 88 mcg tablet Take 88 mcg by mouth. lovastatin (MEVACOR) 20 mg tablet metFORMIN (GLUCOPHAGE) 500 mg tablet metoprolol tartrate (LOPRESSOR) 25 mg tablet Take by mouth. omeprazole (PRILOSEC) 20 mg capsule potassium chloride (KLOR-CON) 10 mEq CR tablet topiramate (TOPAMAX) 25 mg tablet Take 25 mg by mouth. topiramate (TOPAMAX) 25 mg tablet Take 1 tablet by mouth 2 times daily. 60 tablet 0 No current facility-administered medications for this visit. Patient's Allergies: Allergies Allergen Reactions Codeine Other reaction(s): Other (See Comments) unknown Amoxicillin Other reaction(s): No Reaction Indicated Morphine Other reaction(s): No Reaction Indicated Sulfa Antibiotics Other reaction(s): No Reaction Indicated Neurological Examination: Vitals: 11/24/17 1503 BP: 130/80 Pulse: 80 Resp: 20 PainSc: 0 - No pain MENTAL STATUS: The patient is awake, alert, and oriented to time, place, and person. Spee ch is fluent. Memory, attention, comprehension, and general [...] 5/5 throughout. Tone is normal. SENSORY EXAMINATION: mildly impaired proprioception and vibratory sense at the toes with d ecreased light touch in a stocking distribution up to the ankles bilaterally DEEP TENDON REFLEXES: 1+ and symmetric with absent Achilles tendon reflexes bilaterally PLANTAR RESPONSES: Downgoing bilaterally GAIT: Gait and station are normal. CEREBELLAR EXAMINATION: There is no dysmetria on ikmyam-ac-rbef test. MISCELLANEOUS EXAM: Atraumatic, no evidence of frontal or maxillary sinus tenderness, no ne ck masses, abdomen is soft and nontender, extremities equally palpable pulses Clinical Impression: Hx Seziure, complex partial with secondary generalization, last seizure 2 yrs ago, discusse d with , if she remains seizure free this year will taper medication next year if a 24-hour vibratory EEG is negative demonstrating no evidence of seizure activity Diabetic polyneuropathy, stable S/P cataract removal, right 10/2017 Hypertension Hypothyroidism Hx TIA, stable and improved, continue aspirin 325 mg daily for stroke prophylaxis Plan: Patient Instructions [facility] Dr. Garth Vinson, Neurologist Date:11/24/2017 Name:Cristina Buckner :..1940 Please schedule next follow up appt with Dr. Vinson in 6 months for Hx Seziure, complex partia l with secondary generalization, last seizure 2 yrs ago Diabetic polyneuropathy, stable S/P cataract removal, right 10/2017 Hypertension Hypothyroidism Hx TIA Suggest reading newspapers. magazines, perform word find exercises such as cross word puzz le, and scrabble, other puzzle games like [employer], Banno. Play computer/mobile applications such as [employer] and [employer] GAMES Gave medical education to avoid sleep deprivation, stimulants, alcohol, or any type of head trauma Any Questions please call ARIANA Chapin or Dr. Vinson at [facility] What is a Partial Seizure (Focal Seizure)? In a partial seizure, excessive signals in the brain cause symptoms in the body. Have you or someone else noticed part of your body moving or shaking involuntarily? Do you have short periods when you feel confused, have memory loss, or appear to act unusual? Are y ou sometimes unaware of your actions or do you even pass out for a few moments? If so, you m ay be experiencing partial seizures. These occur when you have a condition called epilepsy. Partial seizures can be scary and frustrating. The good news is that they can usually be co ntrolled. How the brain works Your brain uses short bursts of electricity as signals. These signals allow areas of the br ain to communicate with each other. These signals also travel from the brain to the rest of your body. When part of the brain overloads Sometimes the signals become excessive. When this happens in one area of the brain, it is c alled a partial seizure. The excessive signals cause part of the body to work abnormally. Th en you may twitch, feel confused, or pass out for a moment. Partial seizures can present in many ways. Simple partial seizuresoften have only a few minor symptoms, such as hand twitc savi, smelling an unusual odor, or feeling a sense of dj-vu. "Simple"means there is no loss of consciousness. Complex partial seizures are often associated with more abnormal beh avior. They may also affect your mental functioning to some degree."Complex"means youm ay have a lowered level of consciousness or loss of memory. Partial seizures can be controlled Seizures can be caused by irritation or damage to the brain from trauma, scar formation, tu mors, stroke, or infection.Usually the cause is unknown. However, most partial seizures ca n be successfully treated. With treatment, most people with seizures lead normal, fulfilling lives. Date Last Reviewed: 08/01/201519990086-4492 [employer]. [address] [place] [address], [place] [address]. All [facility] ts reserved. This information is not intended as a substitute for professional medical care. Always follow your healthcare professional's instructions. Transient IschemicAttack (TIA) Your symptoms were caused by a TIA, ormini-stroke. Even though your symptoms have gone aw ay, this condition is as serious as a full stroke. It means you are more likely to have a fu ll stroke. About 1 in 3 people who have a TIA go on to have a full stroke. And 4% to 10% of those people will have the stroke within 2 days. A TIAis caused when something decreases or blocks blood flowto a part of your brain. A TIA often happens when a blood clot travels to a blood vessel in the brain. The clot reduces or blocks blood flow. This causes the symptoms you had. After a short while, the clot disso lves. Bloodflows again, and the symptoms go away. People with hardening of the arteries (a therosclerosis) are at higher risk for a TIA. So are people who have anirregular heartbeat called atrial fibrillation. A TIA causessymptoms similar to a stroke, but theylast less than 24 hours. A full strok e causes symptoms that last more than 24 hours and may be permanent. But even if your sympto ms only lasted a short time, the TIA may have damagedyour brain tissue. Once you have had a TIA, you are at risk of having a full stroke. You will needtests to look atthe blood f low to your brain. The testscan alsorule out other causes of your symptoms. The tests ma y include an ultrasound of the arteries in your neck and an evaluation of your heart. They m ay also include a CT scan of your brain, an MRI scan of your brain, or both. If your healthc are provider finds problems, he or she will recommend treatment with medicines, procedures, or both. Your provider may prescribe medicines to reduce your chance of having another TIA and strok e. These may include medicines that prevent blood clots, such as antiplatelet medicines and blood thinners (anticoagulants). Your doctor may recommend other treatment. This may include a procedure to open up a blocked artery in your neck. Home care The following guidelines will help you take care of yourself at home: Take any medicines your doctor has prescribed as directed. These may include antiplatele t medicines or medicines for other conditions, such as high blood pressure or high cholester ol. A TIA is a serious event that puts you at risk of having a full stroke. Because of this, it is important to take steps to help prevent a stroke from happening. Your doctor will loo k at all ofyour risk factors when deciding on what other treatment you may need. Ways to reduce your risk for stroke High blood pressure, diabetes, high cholesterol, heavy drinking,and smoking are risk fact ors for stroke and heart disease. You can control these by taking medicines and making diet and lifestyle changes. One way to help prevent a strokeis totake aspirin or a similar me dicine every day. But don't take daily aspirin unless your healthcare provider tells you to. Yourprovider will work with you to make lifestyle changes to help prevent a stroke. Diet Your healthcare provider will give you information about changes you may need to make to yo ur diet. You may need to see a registered dietitian for help with diet changes. Changes may include: Eating lessfat and cholesterol Eating less salt (sodium). Thisis especially importantif you have high blood pressur e. Eating more fresh fruits and vegetables Eating lean proteins, such as fish, poultry,beans, and peas Eating less red meat and processed meats Using low-fat dairy products Using vegetable and nut oils in limited amounts Limiting how many sweets and processed foods such as chips, cookies,and baked goods yo u eat Limiting how much alcohol you drink Physical activity Your healthcare provider may recommend that you get more exercise if you have not been as a ctive as possible. He or she may suggest that you get40 minutes ofmoderate to vigorous physical activityeach day. You should do thisat least 3 to 4 days a week. A few examples of moderate to vigorousexercise are: Walking at a brisk pace, about 3 to 4 miles per hour Jogging or running Swimming or water aerobics Hiking Dancing Martial arts Tennis Riding a bike Other ways to reduce your risk Weight management. If you are overweight or obese, your healthcare provider will work wi th you to lose weight and lower your body mass index (BMI) to a normal or near-normal level. Making diet changes and increasing physical activity can help. Smoking. If you smoke, break the habit. Enroll in a stop smoking program toimprove you r chances of success. Stress. Learn how to manage your stress. This willhelp you deal with stress at home an d at work. Follow-up care Call your doctor for an appointment in the next few days for another evaluation, or as advi sed. This is to make a plan for preventing another TIA or stroke. You may need to see aneu rologist to follow up on your TIA. A neurologist is a doctor who specializes in treating bra in and nervous system problems. You may need other tests or procedures. If you had an X-ray, CT scan, MRI scan, or ECG (electrocardiogram), a specialist will revie w it. You ll be told of any new findings that will affect your care. Call 911 Call 911 if any of these occur: Any of your TIA symptoms return New problems with speech, vision, walking, or weakness or numbness of the face or on one side of the body Severe headache, fainting spell, dizziness, or seizure Date Last Reviewed: 07/27/201619996273-9312 [employer]. [address] [place] [address]. All righ ts reserved. This information is not intended as a substitute for professional medical care. Always follow your healthcare professional's instructions. Diabetes and Heart Disease Take your medicines as directed each day, even if you feel fine. If you have diabetes, you aretwo to four times more likely to have heart disease than kira eone without diabetes. This higher risk is due to diabetes, but it is also due to other risk factors for heart disease that happen in people with diabetes. But there s good news. You can helpcontrol your health risks by making some changes in your life. You can take steps to reduce your risk of heart disease by half similar to the risk in people who don't have diabetes. Your main risk factors Three major risk factors for heart disease are high blood sugar, high blood pressure, and h igh levels of lipids. By keeping risk factors under control, you can help keep your heart an d arteries healthy. This may reduce your chances of a heart attack. Blood sugar.High blood sugar can make artery puga tough and rough. Plaque (waxy mater ial in the blood) can then build up along the artery puga, making it harder for blood to fl ow through the arteries. Having high blood sugar increases the chances of having high blood pressure and high cholesterol. Blood pressure. When blood pressure is high all the time it causes your heart to work robertson rder to pump blood. Artery puga become damaged. This increases the risk for plaque build up . Lipids.The body needs some lipids in the blood to stay healthy. But lipid levels that are too high can damage the artery puga. Lipids include cholesterol and triglycerides. Ther e are two kinds of cholesterol. LDL ( bad ) cholesterol can damage the arteries. But HDL ( good ) cholesterol helps clear LDL cholesterol from the blood vessels. This helps acacia p the arteries healthy. When blood sugar is high, the level of triglycerides in the blood ma y also be high. High blood triglyceride levelscan cause plaque to form. Other risk factors Certain lifestyle factors can increase levels of your blood sugar, blood pressure, and lipi ds. Such increases raise your risk of heart disease: Smokingdamages the lining of your arteries. This allows plaque to build up in the joe ry puga. Smoking also constricts (narrows) the arteries. This can raise blood pressure and cause chest pain or angina. Smoking also increases your risk of getting type 2 diabetes. Not being activemakes it harder for your heart to do its work. Inactivity is linked to many other risk factors, such as high blood pressure and poor cholesterol levels. Inactivit y also increases your risk of getting type 2 diabetes. Being overweightmakes it harder for your body to use insulin. It also makes your heart work too hard. Being overweight is also the main contributor to the development of type 2 d iabetes, Changes you can make Following a few simple steps can help keep your risk factors under control. Work with your healthcare team to reach your goals. Quitting smokingcould save your life. Smoking damages the lining of the blood vessels and raises blood pressure. Smoking also affects how your body uses insulin. This makes it robertson rder to keep blood sugar under control. If you smoke and need help quitting, talk to [facility]. Testing your blood sugar is the only way to know whether it is under control. Be sure to test your blood sugar yourself. Also get your blood tested in the lab, as directed. Monitoring your blood pressure and lipid levels can help you achieve safe levels. Visit your healthcare team as scheduled. Taking medicines as directed can help control blood sugar, blood pressure, blood clottin g, and/or cholesterol levels. Eating rightcan reduce your risk factors and help you lose weight. Try to limit the am ount of processed or refined carbohydrates you eat at one time. Cut back on your total calor ie intake. Eat foods low in saturated fat and cholesterol. Eat fiber, including vegetables a nd whole grains, and cut down on salt. A dietitian or nurse informatics educator can help form a meal plan that works for you even if you are on a low budget. Being activecan help reduce your weight, strengthen your heart, and lower your lipid l evels and blood pressure. Exercise and activity are good for your whole body. Talk to your [facility] team about increasing your activity safely over time. Keeping your appointmentswith your healthcare provider helps you stay healthy. Go in f or checkups and lab tests as scheduled. Date Last Reviewed: 03/14/201619995017-[address] [employer]. [address] [place] [address]. All righ ts reserved. This information is not intended as a substitute for professional medical care. Always follow your healthcare professional's instructions. Garth Vinson MD11/24/201715:38 Electronically signed d ocumented in this encounter Plan of Treatment Not on filedocumented as of this encounter Procedures + +--------+ + + + | Procedure Name | Priori | Date/Time | Associated Diagnosis | Comments | | | ty | | | | + +--------+ + + + | LABS - EXTERNAL SCAN | | 12/08/2017 | | Results for this | | | | 12:00 AM | | procedure are in the | | | | PST | | results section. | + +--------+ + + + documented in this encounter Results LABS - EXTERNAL SCAN (12/08/2017 12:00 AM PST) + + + | Narrative | Performed At | + + + | Ordered by an | | | unspecified provider. 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
--- OUTSIDE RECORDS SUMMARY | ~2020-05-21 | XMS | Encounter Summary ---
Demographics + + + | Address | [address] | | | [place] [address] | + + + | Home Phone | | + + + | Preferred Language | Unknown | + + + | Marital Status | | + + + | Worship Affiliation | 1077 | + + + | Race | Unknown | + + + | Ethnic Group | Unknown | + + + Author + + + | Author | [facility] | | | and [place] | + + + | Organization | [facility] | | | [...] Team Providers + +------+ + | Care Shader And Toner Name | Role | Phone | + +------+ + PCP | Unavailable | + +------+ + Encounter Details +--------+ + + + + | Date | Type | Department | Care Team | Description | +--------+ + + + + | 03/16/ | Hospital | [facility] | Yair Gleason, | | | 2012 | Encounter | [facility] | [address] | | | | | [address] | [place], [place] | | | | | [place] | [address] | | | | | [address] | [phone] | | | | | [phone] | | | +--------+ + + + [...]
--- OUTSIDE RECORDS SUMMARY | ~2020-05-21 | XMS | Encounter Summary ---
Demographics + + + | Address | [address] | | | [place] [address] | + + + | Home Phone | | + + + | Preferred Language | Unknown | + + + | Marital Status | | + + + | Sikh Affiliation | 1077 | + + + | Race | Unknown | + + + | Ethnic Group | Unknown | + + + Author + + + | Author | [facility] | | | and [place] | + + + | Organization | [facility] | | | [...] Team Providers + +------+ + | Care [employer] Intervention School Psychologist Name | Role | Phone | + +------+ + | Yair Gleason MD | PCP | | + +------+ + Reason for Visit + + + | Reason | Comments | + + + | Medication Refill | | + + + Encounter Details +--------+--------+ + + + | Date | Type | Department | Care Team | Description | +--------+--------+ + + + | 09/28/ | Refill | [facility] | Garth Vinson MD | Medication Refill | | 2017 | | [facility] | [address] | | | | | CL[address] | [place] | | | | | [address] [place] [place], | [address] | | | | | [place] [address] | | | | | | [phone] | | | +--------+--------+ + + + Social History + +-------+ [...] this encounter Miscellaneous Notes Telephone Encounter - Ila Schrader CC MORTGAGE FUNDER - 09/28/2018 5:05 PM PSTFormatting of thi s note might be different from the original. 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
--- OUTSIDE RECORDS SUMMARY | ~2020-05-21 | XMS | Encounter Summary ---
Demographics + + + | Address | [address] | | | [place] [address] | + + + | Home Phone [...] Team Providers + +------+ + | Care Morgue Librarian Name | Role | Phone | + +------+ + PCP | Unavailable | + +------+ + Encounter Details +--------+ + + + + | Date | Type | Department | Care Team | Description | +--------+ + + + + | 03/02/ | Hospital | [facility] | Levon Araujo, MARITZA | | | 2013 | Encounter | [facility] | [address] | | | | | [address] | [place], [place] | | | | | [place], [place] | [address] | | | | | [address] | [phone] | | | | | [phone] | | | +--------+ + + + [...]
--- OUTSIDE RECORDS SUMMARY | ~2020-05-21 | XMS | Encounter Summary ---
Demographics + + + | Address | [address] | | | [place] [address] | + + + | Home Phone | | + + + | Preferred Language | Unknown | + + + | Marital Status | | + + + | Mu-Ism Affiliation | 1077 | + + + [...] Team Providers + +------+ + | Care Utility Plant Operative Name | Role | Phone | + +------+ + | Yair Glaeson MD | PCP | | + +------+ + Reason for Visit + +--------+ + | Reason | Onset | Comments | | | Date | | + +--------+ + | Treatment Order | 04/02/ | physical therapy | | | 2019 | | + +--------+ + Encounter Details +--------+ + + + + | Date | Type | Department | Care Team | Description | +--------+ + + + + | 04/02/ | Telephone | [facility] | Dari Hansen RN | Treatment Order | | 2019 | | [facility] | | (physical therapy) | | | | CLINIC [address] | | | | | | [address] [place], | | | | | | [place] [address] | | | | | | [phone] | | | +--------+ + + + [...] this encounter Miscellaneous Notes Telephone Encounter - Dari Hansen RN - 04/02/2019 10:36 AM PDTPt [facility] [place] d would like her Physical Therapy to be sent there./ARIANA Rivas documented in this encounter Plan of Treatment Not on filedocumented as of this encounter Visit Diagnoses Not on filedocumented in this encounter"
--- OUTSIDE RECORDS SUMMARY | ~2020-05-21 | XMS | Encounter Summary ---
Demographics + + + | Address | [address] | | | [place] [address] | + + + | Home Phone | | + + + | Preferred Language | Unknown | + + + | Marital Status | | + + + | Congregational Affiliation | 1077 | + + + | Race | Unknown | + + + | Ethnic Group | Unknown | + + + Author + + + | Author | [facility] | | | and [place] | + + + | Organization | [facility] | | [...] Team Providers + +------+ + | Care Brush Clearing Laborer Name | Role | Phone | + +------+ + PCP | Unavailable | + +------+ + Encounter Details +--------+ + + + + | Date | Type | Department | Care Team | Description | +--------+ + + + + | 11/28/ | Hospital | [place] [facility], Levon C, FLIGHT PHYSICIAN | | | 2016 | Encounter | [facility] | [address] | | | | | [address] | [place], [place] | | | | | [place], [place] | [address] | | | | | [address] | [phone] | | | | | [phone] | | | +--------+ + + + [...] | + +--------+ + + + | MRI UPPER EXTREMITY | Routin | 11/28/2015 | | Results for this | | JOINT LEFT WO | e | 4:24 PM | | procedure are in the | | CONTRAST | | PST | | results section. | + +--------+ + + + documented in this encounter Results MRI Upper Extremity Joint LT wo Con (11/28/2015 4:24 PM PST) + + | Specimen | + + | | + + + + + | Narrative | Performed At | + + + | ORIGINAL MRI LEFT SHOULDER WITHOUT CONTRAST | | | CLINICAL STATEMENT: Shoulder pain status post fall. COMPARISONS: | | | Left shoulder x-ray, 11/08/2015. TECHNIQUE: | | | Multiplanar-multisequence noncontrast images of the left shoulder are | | | obtained. REPORT: A very tiny region of subacromial, subdeltoid | | | bursal fluid is present. No through-thickness rotator cuff tear is | | | seen. The acromioclavicular joint is not widened. The | | | supraspinatus tendon signal is inhomogeneous at its attachment to the | | | greater tuberosity best appreciated on coronal image #16 of the T2 | | | fat-sat series. Mild mass effect on the supraspinatus is noted related | | | to the acromion and the coracoacromial ligament. The acromion is a | | | flat-type configuration. The biceps tendon is present within the | | | bicipital groove and seen to extend to the superior labrum. No | | | distinct linear abnormal signal within the superior labrum is seen. | | | The cartilage signal at the humeral head is inhomogeneous. | | | Focuses of increased bone signal on T2 fat-sat series is noted at the | | | supraspinatus/infraspinatus insertions greater tuberosity. | | | IMPRESSION: 1. Inhomogeneous signal, supraspinatus tendon, which may | | | relate to mucoid degeneration intrasubstance tear and/or tendinopathy. | | | 2. Degenerative type subcortical edema at the greater tuberosity in | | | the region of supraspinatus/infraspinatus insertion. 3. A very thin | | | region of fluid intensity in the subacromial/subdeltoid bursa which | | | can be seen with bursitis versus nonvisualized through-thickness tear. | | | 4. Findings at the acromion and coracoacromial ligament which can be | | | associated with the clinical diagnosis of external impingement. 5. | | | Mild degenerative type cartilage signal changes at the humeral head. | | | Job No.: [id number] Read By: DEL WALKER MD | | | Released By: DEL WALKER MD Date: 11/29/2015 10:58 | | + + + + + | Procedure Note | + + | Eliazar Falk Results In - 09/03/2017 9:36 PM PST ORIGINAL MRI LEFT SHOULDER | | WITHOUT CONTRAST CLINICAL STATEMENT:Shoulder pain status post fall. COMPARISONS:Left | | shoulder x-ray, 11/08/2015. TECHNIQUE:Multiplanar-multisequence noncontrast images of | | the left shoulder are obtained. REPORT: A very tiny region of subacromial, subdeltoid | | bursal fluid is present. No through-thickness rotator cuff tear is seen. The | | acromioclavicular joint is not widened. The supraspinatus tendon signal is inhomogeneous | | at its attachment to the greater tuberosity best appreciated on coronal image #16 of | | the T2 fat-sat series. Mild mass effect on the supraspinatus is noted related to the | | acromion and the coracoacromial ligament. The acromion is a flat-type configuration. The | | biceps tendon is present within the bicipital groove and seen to extend to the superior | | labrum. No distinct linear abnormal signal within the superior labrum is seen. The | | cartilage signal at the humeral head is inhomogeneous. Focuses of increased bone signal | | on T2 fat-sat series is noted at the supraspinatus/infraspinatus insertions greater | | tuberosity. IMPRESSION:1. Inhomogeneous signal, supraspinatus tendon, which may relate | | to mucoid degeneration intrasubstance tear and/or tendinopathy.2. Degenerative type | | subcortical edema at the greater tuberosity in the region of supraspinatus/infraspinatus | | insertion.3. A very thin region of fluid intensity in the subacromial/subdeltoid bursa | | which can be seen with bursitis versus nonvisualized through-thickness tear.4. Findings | | at the acromion and coracoacromial ligament which can be associated with the clinical | | diagnosis of external impingement.5. Mild degenerative type cartilage signal changes at | | the humeral head. Job No.: [id number] Read By: DEL WALKER MD Released | | By: KAY BARRAZAate: 11/29/2015 10:58 | |The cartilage signal at the humeral head is inhomogeneous. | | | |Focuses of increased bone signal on T2 fat-sat series is noted at the supraspinatus/infrasp inatus insertions greater tuberosity. | | | |IMPRESSION: | |1. Inhomogeneous signal, supraspinatus tendon, which may relate to mucoid degeneration intr asubstance tear and/or tendinopathy. | |2. Degenerative type subcortical edema at the greater tuberosity in the region of supraspin atus/infraspinatus insertion. | |3. A very thin region of fluid intensity in the subacromial/subdeltoid bursa which can be s een with bursitis versus nonvisualized through-thickness tear. | |4. Findings at the acromion and coracoacromial ligament which can be associated with the cl inical diagnosis of external impingement. | |5. Mild degenerative type cartilage signal changes at the humeral head. | | | | | |Job No.: [id number] | | | |Read By: DEL WALKER MD | | | |Released By: DEL WALKER MD | |Date: 11/29/2015 10:58 | | | | | + + documented in this encounter Visit Diagnoses Not on filedocumented in this encounter"
--- OUTSIDE RECORDS SUMMARY | ~2020-05-21 | XMS | Encounter Summary ---
Demographics + + + | Address | [address] | | | [place] [address] | + + + | Home Phone | | + + + | Preferred Language | Unknown | + + + | Marital Status | | + + + | Protestant Affiliation | 1077 | + + + | Race | Unknown | + + + | Ethnic Group | Unknown | + + + Author + + + | Author | [facility] | | | and [place] | + + + | Organization | [facility] | | | and [...] Team Providers + +------+ + | Care Paying Teller Name | Role | Phone | + [...] | | | | [place], [place] | [address] | | | | | [address] | | | | | | [phone] | | | +--------+ + + + [...] | | mL/min/1.73m2 | LAB | | | (REF) | | | | | + +-------+ [...]
--- OUTSIDE RECORDS SUMMARY | ~2020-05-21 | XMS | Encounter Summary ---
Demographics + + + | Address | [address] | | | [place] [address] | + + + | Home Phone | | + + + | Preferred Language | Unknown | + + + | Marital Status | | + + + | Worship Affiliation | 1077 | + + + | Race | Unknown | + + + | Ethnic Group | Unknown | + + + Author + + + | Author | [facility] | | | and [place] | + + + | Organization | [facility] | | [...] Team Providers + +------+ + | Care Cellar Pumper Name | Role | Phone | + +------+ + | Yair Gleason MD | PCP | | + +------+ + Reason for Visit +--------+--------+ + | Reason | Onset | Comments | | | Date | | +--------+--------+ + | Other | 05/03/ | | | | 2019 | | +--------+--------+ + Encounter Details +--------+ + + + + | Date | Type | Department | Care Team | Description | +--------+ + + + + | 05/03/ | Telephone | [facility] | Garth Vinson MD | Other | | 2019 | | HOSPITAL [facility] | [address] | | | | | CLIN[address] | [place] | | | | | DR [address] [place], | [address] | | | | | [place] [address] | | | | | | [phone] | | | +--------+ + + + [...] this encounter Miscellaneous Notes Telephone Encounter - Queenie Stewart - 05/13/2019 11:35 AM PDTSpoke to the patient and she canceled her EEG because of a seizure. She stated that she wants to see Dr. Vinson again befor e she will reschedule. I scheduled her on 05/18. Queenie Stewart elephone Encounter - Garth Vinson MD - 05/03/2019 5:35 PM PDTcalled and needs f/up after 24 hour EEG and if anot her Sz to increase topamax 3 taba twice a day, need to see in last week of AprilElectronicall y signed by Garth Vinson MD at 05/03/2019 5:36 PM PDTTelephone Encounter - Maria D Jane - 05/03/2019 3:[address] Vinson know that patient had a small seizure friday. A CT scan or MRI was done of her brain at [facility]. She is getting ho oked up for her EEG tomorrow and wants to know if they need to be seen or set up an appointm ent. Please advise. docu mented in this encounter Plan of Treatment Not on filedocumented as of this encounter Visit Diagnoses Not on filedocumented in this encounter"
--- OUTSIDE RECORDS SUMMARY | ~2020-05-21 | XMS | Encounter Summary ---
Demographics + + + | Address | [address] | | | [place] [address] | + + + | Home Phone | | + + + | Preferred Language | Unknown | + + + | Marital Status | | + + + | Restorationism Affiliation | 1077 | + + + | Race | Unknown | + + + | Ethnic Group | Unknown | + + + Author + + + | Author | [facility] | | | and [place] | + + + | Organization | [facility] | | [...] Team Providers + +------+ + | Care Rewriter Name | Role | Phone | + +------+ + PCP | Unavailable | + +------+ + Encounter Details +--------+ + + + + | Date | Type | Department | Care Team | Description | +--------+ + + + + | 08/26/ | Hospital | [facility] | [place], | | | 2013 | Encounter | [facility] | Hiro Mariano, | | | | | [facility] | [address] | | | | | [address] [facility], | [facility], [place] | | | | | [place] [address] | [address] | | | | | [phone] | | | | | | | [...]
--- OUTSIDE RECORDS SUMMARY | ~2020-05-21 | XMS | Encounter Summary ---
Demographics + + + | Address | [address] | | | [place] [address] | + + + | Home Phone | | + + + | Preferred Language | Unknown | + + + | Marital Status | | + + + | Congregation Affiliation | 1077 | + + + | Race | Unknown | + + + | Ethnic Group | Unknown | + + + Author + + + | Author | [facility] | | | and [place] | + + + | Organization | [facility] | | | [...] Team Providers + +------+ + | Care Forensic Sergeant Name | Role | Phone | + +------+ + PCP | Unavailable | + +------+ + Encounter Details +--------+ + + + + | Date | Type | Department | Care Team | Description | +--------+ + + + + | 03/19/ | Hospital | [facility] | Yair Gleason, | | | 2013 | Encounter | [facility] | [address] | | | | | [address] | [place], [place] | | | | | [place] | [address] | | | | | [address] | [phone] | | | | | [phone] | | | +--------+ + + + [...]
--- OUTSIDE RECORDS SUMMARY | ~2020-05-21 | XMS | Encounter Summary ---
Demographics + + + | Address | [address] | | | [place] [address] | + + + | Home Phone | | + + + | Preferred Language | Unknown | + + + | Marital Status | | + + + | Faith Affiliation | 1077 | + + + | Race | Unknown | + + + | Ethnic Group | Unknown | + + + Author + + + | Author | [facility] | | | and [place] | + + + | Organization | [facility] | | [...] Team Providers + +------+ + | Care Diversional Therapist'S Assistant Name | Role | Phone | + +------+ + PCP | Unavailable | + +------+ + Encounter Details +--------+ + + + + | Date | Type | Department | Care Team | Description | +--------+ + + + + | 11/08/ | Hospital | [facility] | Levon Araujo, MARITZA | | | 2016 | Encounter | [facility] | [address] | | | | | [address] | [place], [place] | | | | | [place], [place] | [address] | | | | | [address] | [phone] | | | | | [phone] | | | +--------+ + + + [...] XR HIP LEFT 2-3 | Routin | 11/08/2015 | | Results for this | | VIEWS | e | 1:51 PM | | procedure are in the | | | | PST | | results section. | + +--------+ + + + | XR SHOULDER LEFT 2 + | Routin | 11/08/2015 | | Results for this | | VW | e | 1:51 PM | | procedure are in the | | | | PST | | results section. | + +--------+ + + + | XR PELVIS 1 OR 2 VW | Routin | 11/08/2015 | | Results for this | | | e | 1:51 PM | | procedure are in the | | | | PST | | results section. | + +--------+ + + + documented in this encounter Results XR Shoulder Left 2 + Vw (11/08/2015 1:51 PM PST) + + | Specimen | + + | | + + + + + | Narrative | Performed At | + + + | ORIGINAL ORTHO SHOULDER, THREE-VIEW LEFT: | | | CLINICAL STATEMENT: Pain. COMPARISON: Left shoulder 09/20/11. | | | REPORT: No acute finding is identified. Several punctate rounded | | | opacities are noted within soft tissue, seen on Grashey glenoid view. | | | The visualized lung zones demonstrate several punctate opacities | | | projecting over the mid lung zone which may correspond to the soft | | | tissue opacities noted on the Grashey glenoid view. IMPRESSION: | | | 1. No acute finding identified left shoulder and no distinct joint | | | degenerative changes seen. 2. Findings that could relate to soft | | | tissue calcification at the left back region versus material outside | | | patient's body. The CT thorax from 03/23/2012 did not demonstrate | | | soft tissue calcification at the left back region or within the lung | | | parenchyma. Recommend chest radiograph PA and lateral for further | | | evaluation. Read By: DEL | | | Saji WALKER MD Released By: DEL WALKER MD Date: 11/08/2015 | | | 17:18 | | + + + + + | Procedure Note | + + | Eliazar Falk Results In - 09/03/2017 9:24 PM PST ORIGINAL ORTHO SHOULDER, | | THREE-VIEW LEFT: CLINICAL STATEMENT:Pain. COMPARISON:Left shoulder 09/20/11. REPORT:No | | acute finding is identified. Several punctate rounded opacities are noted within soft | | tissue, seen on Grashey glenoid view. The visualized lung zones demonstrate several | | punctate opacities projecting over the mid lung zone which may correspond to the soft | | tissue opacities noted on the Grashey glenoid view. IMPRESSION:1. No acute finding | | identified left shoulder and no distinct joint degenerative changes seen.2. Findings | | that could relate to soft tissue calcification at the left back region versus material | | outside patient's body. The CT thorax from 03/23/2012 did not demonstrate soft tissue | | calcification at the left back region or within the lung parenchyma. Recommend chest | | radiograph PA and lateral for further evaluation. Job#: [id number] Read By: | | DEL WALKER MD Released By: DEL WALKER MDDate: 11/08/2015 17:18 | |REPORT: | |No acute finding is identified. Several punctate rounded opacities are noted within soft t issue, seen on Grashey glenoid view. | | | |The visualized lung zones demonstrate several punctate opacities projecting over the mid clementine ng zone which may correspond to the soft tissue opacities noted on the Grashey glenoid view. | | | |IMPRESSION: | |1. No acute finding identified left shoulder and no distinct joint degenerative changes see n. | |2. Findings that could relate to soft tissue calcification at the left back region versus m aterial outside patient's body. The CT thorax from 03/23/2012 did not demonstrate soft tiss ue calcification at the left back | |region or within the lung parenchyma. | | Recommend chest radiograph PA and lateral for further evaluation. | | | | | | | | | |Read By: DEL WALKER MD | | | |Released By: DEL WALKER MD | |Date: 11/08/2015 17:18 | | | | | + + XR Pelvis 1 or 2 Vw (11/08/2015 1:51 PM PST) + + | Specimen | + + | | + + + + + | Narrative | Performed At | + + + | ORIGINAL ORTHO PELVIS, ONE-VIEW: CLINICAL | | | STATEMENT: Pain. COMPARISON: Pelvis 09/20/14, CT abdomen and | | | pelvis 03/21/13. 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 No periprosthetic lucencies are seen. The femoral heads | | | appear centered in the acetabular cups. Facet degenerative changes | | | noted L5-S1. IMPRESSION: 1. No acute finding identified and no | | | distinct findings suspicious for loosening involving the femoral | | | prostheses. 2. Facet degenerative changes L5-S1, left greater than | | | right. Read By: DEL Lennon | | | MD AARON Released By: DEL WALKER MD Date: 11/08/2015 | | | 17:18 | | + + + + + | Procedure Note | + + | Eliazar Falk Results In - 09/03/2017 9:24 PM PST ORIGINAL ORTHO PELVIS, | | ONE-VIEW: CLINICAL STATEMENT:Pain. COMPARISON:Pelvis 09/20/14, CT abdomen and pelvis | | 03/21/13. REPORT:Bilateral bipolar hip prostheses are present. No periprosthetic | | lucencies are seen. The femoral heads appear centered in the acetabular cups. Facet | | degenerative changes noted L5-S1. IMPRESSION:1. No acute finding identified and no | | distinct findings suspicious for loosening involving the femoral prostheses.2. Facet | | degenerative changes L5-S1, left greater than right. Job#: [id number] Read | | By: DEL WALKER MD Released By: DEL WALKER, MDDate: 11/08/2015 17:18 | | | |COMPARISON: | |Pelvis 09/20/14, CT abdomen and pelvis 03/21/13. | | | |REPORT: | |Bilateral bipolar hip prostheses are present. No periprosthetic lucencies are seen. The f emoral heads appear centered in the acetabular cups. | | | |Facet degenerative changes noted L5-S1. | | | |IMPRESSION: | |1. No acute finding identified and no distinct findings suspicious for loosening involving the femoral prostheses. | |2. Facet degenerative changes L5-S1, left greater than right. | | | | | | | | | |Read By: DEL WALKER MD | | | |Released By: DEL WALKER MD | |Date: 11/08/2015 17:18 | | | | | + + XR Hip Left 2-3 Views (11/08/2015 1:51 PM PST) + + | Specimen | + + | | + + + + + | Narrative | Performed At | + + + | ORIGINAL ORTHO HIP, TWO-VIEW LEFT: CLINICAL | | | STATEMENT: Pain. COMPARISON: 09/20/14. REPORT: A bipolar | | | hip prosthesis is re-demonstrated. No periprosthetic lucencies are | | | seen. The femoral head component appears centered within the | | | acetabular cuff. No acute finding is identified. The left | | | sacroiliac joint appears within normal limits. IMPRESSION: | | | Bipolar hip prosthesis re-demonstrated. No acute finding or finding | | | suspicious for loosening is identified. Job#: | | | [id number] Read By: DEL WALKER MD Released By: DEL WALKER MD Date: 11/08/2015 17:17 | | + + + + + | Procedure Note | + + | Dileep Rad Results In - 09/03/2017 9:24 PM PST ORIGINAL ORTHO HIP, TWO-VIEW | | LEFT: CLINICAL STATEMENT:Pain. COMPARISON:09/20/14. REPORT:A bipolar hip prosthesis is | | re-demonstrated. No periprosthetic lucencies are seen. The femoral head component | | appears centered within the acetabular cuff. No acute finding is identified. The left | | sacroiliac joint appears within normal limits. IMPRESSION:Bipolar hip prosthesis | | re-demonstrated. No acute finding or finding suspicious for loosening is identified. D: | | 11/08/15Job#: [id number] Read By: DEL WALKER MD Released By: DEL WALKER, | | MDDate: 11/08/2015 17:17 | | | |COMPARISON: | |09/20/14. | | | |REPORT: | |A bipolar hip prosthesis is re-demonstrated. No periprosthetic lucencies are seen. The fe moral head component appears centered within the acetabular cuff. No acute finding is ident ified. The left sacroiliac joint appears within normal limits. | | | |IMPRESSION: | |Bipolar hip prosthesis re-demonstrated. No acute finding or finding suspicious for looseni ng is identified. | | | | | | | | | |Read By: DEL WALKER MD | | | |Released By: DEL WALKER MD | |Date: 11/08/2015 17:17 | | | | | + + documented in this encounter Visit Diagnoses Not on filedocumented in this encounter"
--- OUTSIDE RECORDS SUMMARY | ~2020-05-21 | XMS | Encounter Summary ---
Demographics + + + | Address | [address] | | | [place] [address] | + + + | Home Phone | | + + + | Preferred Language | Unknown | + + + | Marital Status | | + + + | Islam Affiliation | 1077 | + + + | Race | Unknown | + + + | Ethnic Group | Unknown | + + + Author + + + | Author | [facility] | | | and [place] | + + + | Organization | [facility] | | | and [...] Team Providers + +------+ + | Care Training Program Developer Name | Role | Phone | + +------+ + | Yair Gleason MD | PCP | | + +------+ + Reason for Visit + +--------+ + | Reason | Onset | Comments | | | Date | | + +--------+ + | Test Results | 09/13/ | | | | 2019 | | + +--------+ + Encounter Details +--------+ + + + + | Date | Type | Department | Care Team | Description | +--------+ + + + + | 09/13/ | Telephone | [facility] | Garth Vinson MD | Test Results | | 2019 | | [facility] | [address] | | | | | CL[address] | [place] | | | | | [address] [place], | [address] | | | | | [place] [address] | | | | | | [phone] | | | +--------+ + + + [...] Telephone Encounter - Garth Vinson MD - 09/13/2019 8:31 AM PSTcalled and gave NCS/EMG o f the lower extremities with evidence of peripheal neuropathy and advised to use rolling wal ker or can for ambulation, recent fall and advised to see PCP documented in this encounter Plan of Treatment Not on filedocumented as of this encounter Visit Diagnoses Not on filedocumented in this encounter"
--- OUTSIDE RECORDS SUMMARY | ~2020-05-21 | XMS | Encounter Summary ---
Demographics + + + | Address | [address] | | | [place] [address] | + + + | Home Phone | | + + + | Preferred Language | Unknown | + + + | Marital Status | | + + + | Yazidi Affiliation | 1077 | + + + | Race | Unknown | + + + | Ethnic Group | Unknown | + + + Author + + + | Author | [facility] | | | and [place] | + + + | Organization | [facility] | | | and [...] Team Providers + +------+ + | Care Security Coordinator Name | Role | Phone | + [...] | | | [place], [place] | [address] | | | | | [address] | [phone] | | | | | [phone] | | | +--------+ + + + [...]
--- OUTSIDE RECORDS SUMMARY | ~2020-05-21 | XMS | Encounter Summary ---
Demographics + + + | Address | [address] | | | [place] [address] | + + + | Home Phone | | + + + | Preferred Language | Unknown | + + + | Marital Status | | + + + | Adventism Affiliation | 1077 | + + + [...] Team Providers + +------+ + | Care Rack Worker Name | Role | Phone | + +------+ + PCP | Unavailable | + +------+ + Reason for Visit + +--------+ + | Reason | Onset | Comments | | | Date | | + +--------+ + | Medication Refill | 10/31/ | | | | 2017 | | + +--------+ + Encounter Details +--------+--------+ + + + | Date | Type | Department | Care Team | Description | +--------+--------+ + + + | 10/31/ | Refill | [facility] | Garth Vinson MD | Medication Refill | | 2017 | | HOSPITAL [facility] | [address] | | | | | CLIN[address] | [place] | | | | | [address] [place], | [address] | | | | | [place] [address] | | | | | | [phone] | | | +--------+--------+ + + + [...] Telephone Encounter - Dari Hansen RN - 10/31/2017 11:05 AM PSTLast filled 10/24/16, and last seen 03/06/17, may need f/u appt. /ARIANA Rivas elephone Encounter - Lupe Jane - 10/31/2017 10:57 AM PS [facility] faxed request for refill of Topiramate 25 mg tabs qty 60 Take one tablet b y mouth twice a day. Thanks Jacinda documente d in this encounter Plan of Treatment Not on filedocumented as of this encounter Visit Diagnoses Not on filedocumented in this encounter"
--- OUTSIDE RECORDS SUMMARY | ~2020-05-21 | XMS | Encounter Summary ---
Demographics + + + | Address | [address] | | | [place] [address] | + + + | Home Phone | | + + + | Preferred Language | Unknown | + + + | Marital Status | | + + + | Scientologist Affiliation | 1077 | + + + | Race | Unknown | + + + | Ethnic Group | Unknown | + + + Author + + + | Author | [facility] | | | and [place] | + + + | Organization | [facility] | | | [...] Team Providers + +------+ + | Care Actuarial Director Name | Role | Phone | + +------+ + PCP | Unavailable | + +------+ + Encounter Details +--------+ + + + + | Date | Type | Department | Care Team | Description | +--------+ + + + + | 04/16/ | Hospital | [facility] | Conversion | | | 2012 | Encounter | H[facility]PITAL [facility]Y | Transaction, | | | | | [address] | Provider Unknown | | | | | [place] | | | | | | [address] | (Fax) | | | | | [phone] | | | +--------+ + + + [...]
--- OUTSIDE RECORDS SUMMARY | ~2020-05-21 | XMS | Encounter Summary ---
Demographics + + + | Address | [address] | | | [place] [address] | + + + | Home Phone | | + + + | Preferred Language | Unknown | + + + | Marital Status | | + + + | Mandaen Affiliation | 1077 | + + + | Race | Unknown | + + + | Ethnic Group | Unknown | + + + Author + + + | Author | [facility] | | | and [place] | + + + | Organization | [facility] | | [...] Team Providers + +------+ + | Care Radar Engineering Teacher Name | Role | Phone | + [...] | | [address] [place] | [place] | | | | | [place] | [place], [place] | | | | | [address] | [address] | | | | | [phone] | [phone] | | | | | | | [...]
--- OUTSIDE RECORDS SUMMARY | ~2020-05-21 | XMS | Encounter Summary ---
Demographics + + + | Address | [address] | | | [place] [address] | + + + | Home Phone | | + + + | Preferred Language | Unknown | + + + | Marital Status | | + + + | Latter Day Affiliation | 1077 | + + + | Race | Unknown | + + + | Ethnic Group | Unknown | + + + Author + + + | Author | [facility] | | | and [place] | + + + | Organization | [facility] | | [...] Team Providers + +------+ + | Care Cycle Repairer Name | Role | Phone | + +------+ + | Yair Gleason MD | PCP | | + +------+ + Reason for Visit + + + | Reason | Comments | + + + | Procedure | EMG - BLE | + + + Encounter Details +--------+ + + + + | Date | Type | Department | Care Team | Description | +--------+ + + + + | 09/10/ | Procedure | [facility] | Dilia Joel | Diabetes mellitus | | 2019 | visit | HOSPITAL [facility] | MD [address] | type 2 in nonobese | | | | CLINIC [address] | [place] | ([facility]); Diabetic | | | | [address], | [place] [address] | polyneuropathy | | | | [place] [address] | [phone] | associated with type | | | | [phone] | | 2 diabetes mellitus | | | | | | ([facility]); Numbness | +--------+ + + + + Social [...] + + + documented in this encounter Progress Notes Dilia Joel MD - 09/10/2019 2:00 PM PSTEMG tolerated well. Results explained to patient. 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 She has a follow-up with Mikie [facility]AS in October. documented in [facility] encounter Procedure Notes Dilia Joel MD - 09/10/2019 2:00 PM PSTAssociated Order(s): EMG STUDYProcedure(s) : EMG STUDYPre-Procedure Diagnose(s): Diabetes mellitus type 2 in nonobese ([facility]); Diabetic p olyneuropathy associated with type 2 diabetes mellitus ([facility]); NumbnessPlease see scanned rep ort. documented in [facility] encounter Plan of Treatment Not on filedocumented [...] the | | | | PST | ([facility]) Diabetic | results section. | | | | | polyneuropathy | | | | | | associated with type | | | | | | 2 diabetes mellitus | | | | | | ([facility]) Numbness | | + +--------+ + + + | EMG STUDY | Routin | 09/10/2019 | Diabetes mellitus | Results for this | | | e | 2:00 PM | type 2 in nonobese | procedure are in the | | | | PST | ([facility]) Diabetic | results section. | | | | | polyneuropathy | | | | | | associated with type | | | | | | 2 diabetes mellitus | | | | | | ([facility]) Numbness | | + +--------+ + + + | EMG STUDY | Routin | 09/10/2019 | Diabetes mellitus | Results for this | | | e | 2:00 PM | type 2 in nonobese | procedure are in the | | | | PST | ([facility]) Diabetic | results section. | | | | | polyneuropathy | | | | | | associated with type | | | | | | 2 diabetes mellitus | | | | | | ([facility]) Numbness | | + +--------+ + + + documented in this encounter Visit Diagnoses + + | Diagnosis | + + | Diabetes mellitus type 2 in nonobese (HCC) Type II or unspecified type diabetes | | mellitus without mention of complication, not stated as uncontrolled | + + | Diabetic polyneuropathy associated with type 2 diabetes mellitus (HCC) | + + | Numbness Disturbance of skin sensation | + + documented in this encounter
--- OUTSIDE RECORDS SUMMARY | ~2020-05-21 | XMS | Encounter Summary ---
Demographics + + + | Address | [address] | | | [place] [address] | + + + | Home Phone | | + + + | Preferred Language | Unknown | + + + | Marital Status | | + + + | Baptist Affiliation | 1077 | + + + | Race | Unknown | + + + | Ethnic Group | Unknown | + + + Author + + + | Author | [facility] | | | and [place] | + + + | Organization | [facility] | | | and [...] Team Providers + +------+ + | Care Decorating Equipment Setter Name | Role | Phone | + +------+ + PCP | Unavailable | + +------+ + Encounter Details +--------+ + + + + | Date | Type | Department | Care Team | Description | +--------+ + + + + | 11/02/ | Hospital | [facility] | [place], | | | 2014 | Encounter | [facility] | Hiro Mariano, | | | | | [facility]ICAL [facility] [address] | [address] | | | | | [address] [facility], | [facility], [place] | | | | | [place] [address] | [address] | | | | | [phone] | [phone] | | | | | | | [...]
--- OUTSIDE RECORDS SUMMARY | ~2020-05-21 | XMS | Encounter Summary ---
Demographics + + + | Address | [address] | | | [place] [address] | + + + | Home Phone [...] Team Providers + +------+ + | Care Firmware Engineer Name | Role | Phone | + +------+ + | Yair Gleason MD | PCP | | + +------+ + Reason for Visit + +--------+ + | Reason | Onset | Comments | | | Date | | + +--------+ + | Lab Results | 04/03/ | | | | 2019 | | + +--------+ + Encounter Details +--------+ + + + + | Date | Type | Department | Care Team | Description | +--------+ + + + + | 04/03/ | Telephone | [facility] | Garth Vinson MD | Lab Results | | 2019 | | HOSPITAL [facility] | [address] | | | | | CLIN[address] | [place] | | | | | [address], | [address] | | | | | [place] [address] | | | | | | [phone] | | | +--------+ + + + [...] Telephone Encounter - Garth Vinson MD - 04/03/2019 9:07 AM PDTcalled and left a message to call us back for her blood test results, mildly low potassium 3.4 documented in this encounter Plan of Treatment Not on filedocumented as of this encounter Visit Diagnoses Not on filedocumented in this encounter"
--- OUTSIDE RECORDS SUMMARY | ~2020-05-21 | XMS | Encounter Summary ---
Demographics + + + | Address | [address] | | | [place] [address] | + + + | Home Phone | | + + + | Preferred Language | Unknown | + + + | Marital Status | | + + + | Anglican Affiliation | 1077 | + + + | Race | Unknown | + + + | Ethnic Group | Unknown | + + + Author + + + | Author | [facility] | | | and [place] | + + + | Organization | [facility] | | | [...] Team Providers + +------+ + | Care Shade Maker Name | Role | Phone | + +------+ + | Yair Gleason MD | PCP | | + +------+ + Reason for Visit +--------+--------+ + | Reason | Onset | Comments | | | Date | | +--------+--------+ + | Other | 04/10/ | | | | 2020 | | +--------+--------+ + Encounter Details +--------+ + + + + | Date | Type | Department | Care Team | Description | +--------+ + + + + | 04/10/ | Telephone | [facility] | Garth Vinson MD | Other | | 2020 | | [facility] | [address] | | | | | CL[facility] | [place] | | | | | [address] [place], | [address] | | | | | [place] [address] | | | | | | [phone] | | | +--------+ + + + [...] this encounter Miscellaneous Notes Telephone Encounter - Suha Fletcher - 04/10/2020 2:12 PM PDTFYI: Patient called and said she was seen in the [place] ER for seizure recently. She thinks i t was maybe because she forgot to take one of her pills. She wanted to see Dr Vinson this week and refused the only appt I had to offer her tomorrow morning at 9:30. I offered her to see one of our PERCHER's and she said to just forget it and she'll remember to take her pills. She'll call back to r/s if it happens again. documented in this encounter Plan of Treatment Not on filedocumented as of this encounter Visit Diagnoses Not on filedocumented in this encounter"
--- OUTSIDE RECORDS SUMMARY | ~2020-05-21 | XMS | Encounter Summary ---
Demographics + + + | Address | [address] | | | [place] [address] | + + + | Home Phone | | + + + | Preferred Language | Unknown | + + + | Marital Status | | + + + | Restoration Affiliation | 1077 | + + + | Race | Unknown | + + + | Ethnic Group | Unknown | + + + Author + + + | Author | [facility] | | | and [place] | + + + | Organization | [facility] | | [...] Team Providers + +------+ + | Care Railroad Emergency Services Manager Name | Role | Phone | [...] | | | | [place] | [address] | | | | | [address] | | | | | | [phone] | | | +--------+ + + + [...]
--- OUTSIDE RECORDS SUMMARY | ~2020-05-21 | XMS | Clinical Summary ---
Demographics + + + | Address | [address] | | | [place] [address] | + + + | Home Phone | | + + + | Preferred Language | Unknown | + + + | Marital Status | | + + + | Latter Day Affiliation | 1077 | + + + | Race | Unknown | + + + | Ethnic Group | Unknown | + + + Author + + + | Author | [facility] | | | and [place] | + + + | Organization | [facility] | | | and [...] Team Providers + +------+ + | Care Portfolio Accountant Name | Role | Phone | + [...] | | + + + +---------+------+------+-------+ | topiramate | Take 1 tablet by | 60 | 11 | 06/ | 07 | Expir | | (TOPAMAX) 25 mg | mouth nightly for 30 | tablet | | 11/15 | 11/15 | ed | | tablet | days. | | | 20 | 20 | | + + + +---------+------+------+-------+ Active Problems + + + | Problem | Noted Date | + + + | Neurologic gait [...] Hypertension | 12/27/2011 | + + + Resolved Problems + + + + | Problem | Noted | Resolved | | | Date | Date | + + + + | Diabetic polyneuropathy associated with type 2 diabetes mellitus | 03/29/20 | | | | 19 | 0 | + + + + Encounters +--------+ + + + + | Date | Type | Specialty | Care Team | Description | +--------+ + + + + | 04/10/ | Telephone | Neurology | Garth Vinson MD | Other | | 2019 | | | | | +--------+ + + + + | 04/10/ | Telephone | Neurology | Garth Vinson MD | Other | | 2020 | | | | | +--------+ + + + + | 03/27/ | Office | Neurology | Garth Vinson MD | Seizure (HCC) | | 2020 | Visit | | | (Primary Dx) | +--------+ + + + + from [...] + + + | Blood Pressure | 120/80 | 03/27/2020 2:58 PM | | | | | PDT | | + + + + + | Pulse | 75 | 03/27/2020 2:58 PM | | | | | PDT | | + + + + + | Temperature | - | - | | + + + + + | Respiratory Rate | 20 | 03/27/2020 2:58 PM | | | | | PDT | | + + + + + | Oxygen Saturation | 98% | 03/27/2020 2:58 PM | | | | | PDT | | + + + + + | Inhaled Oxygen | - | - | | | Concentration | | | | + + + + + | Weight | 47.6 kg (105 lb) | 03/27/2020 2:58 PM | | | | | PDT | | + + + + + | Height | 157.5 cm (5' 2") | 03/27/2020 2:58 PM | | | | | PDT | | + + + + + | Body Mass Index | 19.2 | 03/27/2020 2:58 PM | | | | | PDT | | + + + + + Plan of Treatment + + + + + | Health Maintenance | Due Date | Last | Comments | | | | Done | | + + + + + | Medication | | | | | Management | 0 | | | + + [...] | 5 | | | | of 1 - PPSV23) | | | | + + + + + | Med Mgmt: TSH | | 08/27/20 | | | | 5 | 14 | | + + + + + | Adult Annual | | | | | Wellness Visit | 7 | | | + + + + + | Microalbumin | | | | | Screening | 7 | | | + + + + + | Hemoglobin A1c | | 03/30/20 | | | Screening | 9 | 19, | | | | | 09/12/20 | | | | | 14, | | | | | 08/27/20 | | | | | 14 | | + + + + + | Med Mgmt: HBA1C | | 03/30/20 | | | | 9 | 19, | | | | | 09/12/20 | | | | | 14, | | | | | 08/27/20 | | | | | 14 | | + + + + + | Vaccine: Influenza | | 08/19/20 | | | (#1) | 0 | 18, | | | | | 12/04/19 | | | | | 18, | | | | | 08/29/20 | | | | | 15, | | | | | Addition | | | | | al | | | | | history | | | | | exists | | + + + + + | Med Mgmt: Cr | | 03/27/20 | | | | 1 | 20, | | | | | 03/30/20 | | | | | 19, | | | | | 08/07/20 | | | | | 15, | | | | | Addition | | | | | al | | | | | history | | | | | exists | | + + + + + | Med Mgmt: K | | 03/27/20 | | | | 1 | 20, | | | | | 03/30/20 | | | | | 19, | | | | | 08/07/20 | | | | | 15, | | | | | Addition | | | | | al | | | | | history | | | | | exists | | + + + + + | Med Mgmt: Na | | 03/27/20 | | | | 1 | 20, | | | | | 03/30/20 | | | | | 19, | | | | | 08/07/20 | | | | | 15, | | | | | Addition | | | | | al | | | | | history | | | | | exists | | + + + + + | Med Mgmt: eGFR | | 03/27/20 | | | | 1 | 20, | | | | | 03/30/20 | | | | | 19, | | | | | 08/07/20 | | | | | 15, | | | | | Addition | | | | | al | | | | | history | | | | | exists | | + + + + + | Colorectal Cancer | | | Postponed from [address] ([address]) | | Screening | 3 | | | | (Colonoscopy) | | | | + + + + + | Vaccine: | | 06/07/20 | | | Dtap/Tdap/Td (3 - | 9 | 19, | | | Td) | | 08/22/20 | | | | | 17 | | + + + + + Procedures + +--------+ + + + | Procedure Name | Priori | Date/Time | Associated Diagnosis | Comments | | | ty | | | | + +--------+ + + + | TOPIRAMATE LEVEL | Routin | 03/27/2020 | Seizure (HCC) | Results for this | | | e | 3:55 PM | | procedure are in the | | | | PDT | | results section. | + +--------+ + + + | COMPREHENSIVE | Routin | 03/27/2020 | Seizure (HCC) | Results for this | | METABOLIC PANEL | e | 3:55 PM | | procedure are in the | | | | PDT | | results section. | + +--------+ + + + from Last 3 Months Results Topiramate Level (03/27/2020 3:55 PM PDT) + + + + + + | Component | Value | Ref Range | Performed | Pathologist | | | | | At | Signature | + + + + + + | Topiramate, | 1.5Comment: | mcg/mL | REFERENCE | | | Serum | THERAPEUTIC RANGE for | | LAB [facility] | | | | Topiramate: | | DIAGNOSTICS | | | | Dose (mg) Peak | | - HEIDE | | | | (mcg/mL) Trough | | BOWERS | | | | (mcg/mL) | | [...] | | | | been determined by [facility] | | | | | | Diagnostics [...] Diagnostics | | | | | | [facility] | | | | | | Bryon Alejo M.D., | | | | | | Ph.D., Laboratory | | | | | | Director [id number] | | | | | | [facility] | | | | | | [place] [address] | | | | | | CLIA #[id number] | | | | + + + + + + + + | Specimen | + + | Blood | + + + + + + + | Performing | Address | City/State/Zipcode | Phone Number | | Organization | | | | + + + + + | REFERENCE LAB | [address] | [place], [place] | | | [facility] - | | [address] | | | [place] | | | | + + + + + Comprehensive Metabolic Panel (03/27/2020 3:55 PM PDT) + + + + + + | Component | Value | Ref Range | Performed | Pathologist | | | | | At | Signature | + + + + + + | Na | 141 | 132 - 143 | [facility] | | | | | mmol/L | [facility] | | | | | | [facility] | | + + + + + + | K | 3.7 | 3.3 - 4.9 | [facility] | | | | | mmol/L | [facility] | [facility] | | | [facility] | | + + + + + + | Cl | 105 | 95 - 108 mmol/L | [facility] | | | | | | [facility] | | + + + + + + | CO2 | 25 | 23 - 34 mmol/L | [facility] | | | | | | [facility] | [facility] | | + + + + + + | Anion Gap | 11 | 7 - 16 mmol/L | [facility] | | | | | | [facility] | | + + + + + + | Glucose | 79 | 70 - 110 mg/dL | [facility] | | | | | [facility] | | [facility] | [facility] | | + + + + + + | BUN | 12 | 5 - 26 mg/dL | [facility] | | | | | | [facility] | | [facility] | | | [facility] | | + + + + + + | Creatinine | 0.77 | 0.60 - 1.30 | [facility] | | | | | mg/dL | [facility] | | | | | | [facility] | | + + + + + + | eGFR if not | >60Comment: GLOMERULAR | >=60 | [facility] | | | | FILTRATION | mL/min/1.73m2 | [facility] | | | [facility] | RATE,ESTIMATED | | [facility]OSPITAL | | | | mL/min/1.42i3Jlhn than | | LABORATORY | | | | 60 Chronic kidney | | | | | | disease,if found over a | | | | | | 3-month period.Less than | | | | | | 15 Kidney failureFor | | | | | | | | | | | | Americans,multiply the | | | | | | calculated GFR by 1.21. | | | | | | | | | | + + + + + + | Calcium | 9.1 | 8.3 - 10.0 | [facility] | | | | | mg/dL | [facility] | | | | | | [facility] | | + + + + + + | Albumin | 3.9 | 3.0 - 4.5 g/dL | [facility] | | | | | | [facility] | | | | | | [facility] | | + + + + + + | Bilirubin | 0.4 | 0.0 - 1.2 mg/dL | [facility] | | | Total | | | [facility] | | | | | | [facility] | | + + + + + + | Total | 7.6 | 6.6 - 8.5 g/dL | [facility] | | | Protein | | | [facility] | | | | | | [facility] | | + + + + + + | AST | 26 | 0 - 38 U/L | [facility] | | | | | | [facility] | | | | | | [facility] | | + + + + + + | ALT | 24 | 14 - 59 U/L | [facility] | | | | | | [facility] | | | | | | [facility] | | + + + + + + | Alkaline | 99 | 46 - 116 U/L | [facility] | | | Phosphatase | | | [facility] | | | | | | [facility] | | + + + + + + | Globulin | 3.7 | 2.4 - 4.5 g/dL | [facility] | | | | | | [facility] | | | | | | [facility] | | + + + + + + | Albumin/Sandi | 1.1 | 0.8 - 2.0 | [facility] | | | bulin Ratio | | | [facility] | | | | | | [facility] | | + + + + + + | BUN/Creatin | 15.6 | 7.0 - 24.0 | [facility] | | | ine Ratio | | | [facility] | | | | | | [facility] | | + + + + + + + + | Specimen | + + | Blood | + + + + + + + | Performing | Address | City/State/Zipcode | Phone Number | | Organization | | | | + + + + + | [facility] | [address] | [place], [place] | [phone] | | [facility] | | [address] | | + + + + + from Last 3 Months Insurance + +--------+ +--------+ +---------+--------+ | Payer | Benefi | Subscriber | Effect | Phone | Address | Type | | | t Plan | ID | hernan | | | | | | / | | Dates | | | | | | Group | | | | | | + +--------+ +--------+ +---------+--------+ | MEDICARE | MEDICA | [id number] | | [phone] | | Medica | | | RE | | 004-Pr | 5 | | re | | | PART A | | esent | | | | | | AND B | | | | | | + +--------+ +--------+ +---------+--------+ + +--------+ +--------+ + + | Guarantor Name | Accoun | Relation to | Date | Phone | Billing Address | | | t Type | Patient | of | | | | | | | | | | + +--------+ +--------+ + + | Cristina Buckner | Person | Self [birth year] | [address] | | | al/Fam | | 1941 | [phone] | [place], [place] | | | ava | | | 1 (Home) | [address] | + +--------+ +--------+ + + Advance Directives + + + + + | Type | Date Recorded | Patient | Explanation | | | | Sterile Preparation Technician | | + + + + + | Power of | | | | | Vertical Contour Band Saw Operator | | | | + + + + + | Advance | 01/22/2018 3:14 | | From [place] | | Directive | PM | | | + + + + +
--- OUTSIDE RECORDS SUMMARY | ~2020-05-21 | XMS | Encounter Summary ---
Demographics + + + | Address | [address] | | | [place] [address] | + + + | Home Phone | | + + + | Preferred Language | Unknown | + + + | Marital Status | | + + + | Mandaeism Affiliation | 1077 | + + + | Race | Unknown | + + + | Ethnic Group | Unknown | + + + Author + + + | Author | [facility] | | | and [place] | + + + | Organization | [facility] | | | [...] Team Providers + +------+ + | Care Filter Tank Tender Helper Head Name | Role | Phone | + [...] | | | | [place] | [address] | | | | | [address] | [phone] | | | | | [phone] | | | +--------+ + + + [...]
--- OUTSIDE RECORDS SUMMARY | ~2020-05-21 | XMS | Encounter Summary ---
Demographics + + + | Address | [address] | | | [place] [address] | + + + | Home Phone [...] Team Providers + +------+ + | Care Dairy Store Manager Name | Role | Phone | + +------+ + PCP | Unavailable | + +------+ + Encounter Details +--------+ + + + + | Date | Type | Department | Care Team | Description | +--------+ + + + + | 11/23/ | Hospital | [facility] | Levon Araujo, MARITZA | | | 2012 | Encounter | [facility] | [address] | | | | | [address] [place] [address] | [place], [place] | | | | | [place], [place] | [address] | | | | | [address] | [phone] | | | | | [phone] | | | +--------+ + + + [...]
--- OUTSIDE RECORDS SUMMARY | ~2020-05-21 | XMS | Encounter Summary ---
Demographics + + + | Address | [address] | | | [place] [address] | + + + | Home Phone | | + + + | Preferred Language | Unknown | + + + | Marital Status | | + + + | Presybeterian Affiliation | 1077 | + + + | Race | Unknown | + + + | Ethnic Group | Unknown | + + + Author + + + | Author | [facility] | | | and [place] | + + + | Organization | [facility] | | [...] Team Providers + +------+ + | Care Warehouse Distribution Specialist Name | Role | Phone | + +------+ + PCP | Unavailable | + +------+ + Encounter Details +--------+ + + + + | Date | Type | Department | Care Team | Description | +--------+ + + + + | 08/31/ | Hospital | [facility] | Cole Addison | | | 2012 | Encounter | HOSPITAL MED SURG | MD [address] | | | | | [address] | [place] | | | | | [place] | [place], [place] | | | | | [address] | [address] | | | | | [phone] | [phone] | | | | | | | [...]
--- OUTSIDE RECORDS SUMMARY | ~2020-05-21 | XMS | Encounter Summary ---
Demographics + + + | Address | [address] | | | [place] [address] | + + + | Home Phone | | + + + | Preferred Language | Unknown | + + + | Marital Status | | + + + | Baptist Affiliation | 1077 | + + + | Race | Unknown | + + + | Ethnic Group | Unknown | + + + Author + + + | Author | [facility] | | | and [place] | + + + | Organization | [facility] | | [...] Team Providers + +------+ + | Care Gaming Dealer Name | Role | Phone | + [...] [place], [place] | | | | | [address] | [address] | | | | | [phone] | [phone] | | | | | | | [...]
--- OUTSIDE RECORDS SUMMARY | ~2020-05-21 | XMS | Encounter Summary ---
Demographics + + + | Address | [address] | | | [place] [address] | + + + | Home Phone [...] Team Providers + +------+ + | Care Watch Leader Name | Role | Phone | + +------+ + PCP | Unavailable | + +------+ + Encounter Details +--------+ + + + + | Date | Type | Department | Care Team | Description | +--------+ + + + + | 09/18/ | Hospital | [facility] | Audi Dennis | | | 2012 | Encounter | H[facility]PITAL EM[facility]GENCY | MD Lorena [address] | | | | | [address] | [place] | | | | | [place] | [address] | | | | | [address] | [phone] | | | | | [phone] | | | +--------+ + + + [...]
--- OUTSIDE RECORDS SUMMARY | ~2020-05-21 | XMS | Encounter Summary ---
Demographics + + + | Address | [address] | | | [place] [address] | + + + | Home Phone [...] | + + +---------+ + | Williamalexa Buckenr | ECON | Unknown | | + + +---------+ + | Yohannes Kyree | ECON | Unknown | | + + +---------+ + Care Team Providers + +------+ + | Care Plate Painter Apprentice Name | Role | Phone | [...] [place] | | | | | [address] [facility], | [address] | | | | | [place] [address] | | | | | | [phone] | | | +--------+ + + + [...]
--- OUTSIDE RECORDS SUMMARY | ~2020-05-21 | XMS | Encounter Summary ---
Demographics + + + | Address | [address] | | | [place] [address] | + + + | Home Phone | | + + + | Preferred Language | Unknown | + + + | Marital Status | | + + + | Evangelical Affiliation | 1077 | + + + | Race | Unknown | + + + | Ethnic Group | Unknown | + + + Author + + + | Author | [facility] | | | and [place] | + + + | Organization | [facility] | | | and [...] Team Providers + +------+ + | Care Wing Commander Name | Role | Phone | + [...] Physical | Diagnoses | Vinson, | [facility] | | | Services | Therapy | Diabetic | Reinaldo Carrillo, | HOSPITAL | | | Required | | polyneuropat | MD [address] | PHYSICAL | | | | | hy | [address], | THERAPY [address] | | | | | associated | [place] | [place] | | | | | with type 2 | [place], [place] | [place], [place] | | | | | diabetes | [address] | [address] | | | | | mellitus | Phone: | Phone: | | | | | (HCC) | [phone] | [phone] | | | | | Neurologic | Fax: | Fax: | | | | | gait | [phone] | [phone] | | | | | disorder | | | +--------+ + + + + + Reason for Visit + + + | Reason | Comments | + + + | Follow-up | seizures/stroke | + + + Evaluate & Treat (Routine) +--------+--------+ + + + + | Status | Reason | Specialty | Diagnoses / | Referred By | Referred To | | | | | Procedures | Contact | Contact | +--------+--------+ + + + + | Closed | | Neurology | Diagnoses | Rosibel, | Karel, | | | | | | Yair Carrillo MD | Reinaldo Carrillo MD | | | | | Localization | 2010 | [address] | | | | | -related | [place], | [place] | | | | | (focal) | [place] | [place], [place] | | | | | (partial) | [address] | [address] Phone: | | | | | symptomatic | Phone: | [phone] | | | | | epilepsy and | [phone] | Fax: | | | | | epileptic | Fax: | [phone] | | | | | syndromes | [phone] | | | | | | with complex | | | | | | | partial | | | | | | | seizures, | | | | | | | not | | | | | | | intractable, | | | | | | | without | | | | | | | status | | | | | | | epilepticus | | | | | | | (HCC) | | | +--------+--------+ + + + + Encounter Details +--------+---------+ + + + | Date | Type | Department | Care Team | Description | +--------+---------+ + + + | 03/29/ | Office | [facility] | Reinaldo Vinson MD | Seizure (HCC) | | 2019 | Visit | HOSPITAL NEUROLOGY | [address] [place] | (Primary Dx); | | | | CLINIC [address] | [place], [place] | Complex partial | | | | DR [place], | [address] | seizures with | | | | [place] [address] | | consciousness | | | | [phone] | | impaired ([facility]); | | | | | | 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 | | | | | | ([facility]); Diabetic | | | | | | polyneuropathy | | | | | | associated with type | | | | | | 2 diabetes mellitus | | | | | | ([facility]); Numbness; | | | | | | Neurologic [...] + + + | Blood Pressure | 158/80 | 03/29/2019 3:26 PM | | | | | PDT | | + + + + + | Pulse | 96 | 03/29/2019 3:26 PM | | | | | PDT | | + + + + + | Temperature | - | - | | + + + + + | Respiratory Rate | 20 | 03/29/2019 3:26 PM | | | | | PDT | | + + + + + | Oxygen Saturation | 98% | 03/29/2019 3:26 PM | | | | | PDT | | + + + + + | Inhaled Oxygen | - | - | | | Concentration | | | | + + + + + | Weight | 48.5 kg (107 lb) | 03/29/2019 3:26 PM | | | | | PDT | | + + + + + | Height | 154.9 cm (5' 1") | 03/29/2019 3:26 PM | | | | | PDT | | + + + + + | Body Mass Index | 20.22 | 03/29/2019 3:26 PM | | | | | PDT | | + + + + + documented in this encounter Patient Instructions Patient Instructions Reinaldo Vinson MD - 03/29/2019 3:30 PM PDTFormatting of this note mi ght be different from the original. Patient Instructions [facility] Dr. Reinaldo Vinson, Neurologist Date:03/29/2019 Name:Cristina Buckner :..1940 Please schedule next follow up appt with Dr. 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 Physical Therapy, External - AMB Referral EEG 24 HR AMBULATORY MONITORING Treatment Option- massage, Acupuncture, Over the counter heat patches (icy hot, thermacare, salonpas) , over the counter creams (aspercream, bengay cream, emu oi l), Relaxation therapy, Water therapy, Cortisone shots, Toradol Injections Suggest reading newspapers. magazines, perform word find exercises such as cross word puzz le, and scrabble, other puzzle games like M[employer]Gu, [employer]. Play computer/mobile applications such as [employer] and [employer] Continue ASA 81 mg daily Topamax 25 mg, 2 tabs twice A day Discussed to avoid sleep deprivation, alcohol, stimulants, or any type of head trauma Any Questions please call ARIANA Chapin or Dr. Vinson at [facility] General Information on Diabetes Diabetes is a long-term health problem. It means your body does not make enough insulin. Or it may mean that your body cannot use the insulin it makes. Insulin is a hormone in your gerald dy. It lets blood sugar (glucose) reach the cells in your body. All of your cells need gluco se for fuel. When you have diabetes, the glucose in your blood builds up because it cannot get into the cells. This buildup is called high blood sugar (hyperglycemia). Your blood sugar level depends on several things. It depends on what kind of food you eat a nd how much of it you eat. It also depends on how much exercise you get, and how much insuli n you have in your body. Eating too much of the wrong kinds of food or not taking diabetes m edicine on time can cause high blood sugar. Infections can cause high blood sugar even if yo u are taking medicines correctly. These things can also cause low blood sugar: Missing meals Not eating enough food Taking too much diabetes medicine Diabetes can cause serious problems over time if you do not get treated. These problems inc lude heart disease, stroke, kidney failure, and blindness. They also include nerve pain or l oss of feeling in your legs and feet, and gangrene of the feet. By keeping your blood sugar under control you can prevent or delay these problems. Normal blood sugar levels are 80 to 100 before a meal and less than 180in the 1 to 2 hour s after a meal. Home care Follow these guidelines when caring for yourself at home: Follow the diet your healthcare provider gives you. Take insulin or other diabetes medic ine exactly as told to. Watch your blood sugar as you are told to. Keep a log of your results. This will help yo ur provider change your medicines to keep your blood sugar under control. Try to reach your ideal weight. You may be able to cut back on or not have to take diabe manuel medicine if you eat the right foods and get exercise. Do not smoke. Smoking worsens the effects of diabetes on your circulation. You are much more likely to have a heart attack if you have diabetes and you smoke. Take good care of your feet. If you have lost feeling in your feet, you may not see an i njury or infection. Check your feet and between your toes at least once a week. Wear a medical alert bracelet or necklace, or carry a card in your wallet that says you have diabetes. This will help healthcare providers give you the right care if you get very i ll and cannot tell them that you have diabetes. Sick day plan If you get a cold, the flu, or a bacterial or viral infection, take these steps: Look at your diabetes sick plan and call your healthcare provider as you were told to. Y ou may need to call your provider right away if: ? Your blood sugar is above 240 while taking your diabetes medicine ? Your urine ketone levels are above normal or high ? You have been vomiting more than 6 hours ? You have trouble breathing or your breath robertson s a fruity smell ? You have a high fever ? You have a fever for several days and you are not getting better ? You get light-headed and are sleepier than usual Keep taking your diabetes pills (oral medicine) even if you have been vomiting and are f eeling sick. Call your provider right away because you may need insulin to lower your blood sugar until you recover from your illness. Keep taking your insulin even if you have been vomiting and are feeling sick. Call your provider right away to ask if you need to change your insulin dose. This will depend on your blood sugar results. Check your blood sugar every 2 to 4 hours, or at least 4 times a day. Check your ketones often. If you are vomiting and having diarrhea, watch them more often . Do not skip meals. Try to eat small meals on a regular schedule. Do this even if you do not feel like eating. Drink water or other liquids that do not have caffeine or calories. This will keep you f rom getting dehydrated. If you are nauseated or vomiting, takes small sips every 5 minutes. To prevent dehydration try to drink a cup (8 ounces) of fluids every hour while you are awak e. General care Always bring a source of fast-acting sugar with you in case you have symptoms of low blood sugar (below 70). At the first sign of low blood sugar, eat or drink 15 to 20 grams of fast- acting sugar to raise your blood sugar. Examples are: 3 to 4 glucose tablets. You can buy these at most drugstores. 4 ounces (1/2 cup) of regular (not diet) softdrinks 4 ounces (1/2 cup) of any fruit juice 8 ounces (1 cup) of milk 5 to 6 pieces of hard candy 1 tablespoon of honey Check your blood sugar 15 minutes after treating yourself. If it is still below 70, take 15 to 20 more grams of fast-acting sugar. Test again in 15 minutes. If it returns to normal (7 0 or above), eat a snack or meal to keep your blood sugar in a safe range. If it stays low, call your doctor or go to an emergency room. Follow-up care Follow-up with your healthcare provider, or as advised. For more information about diabetes , visit the [place] [employer] website at www.diabetes.org or call 370-348-6128. When to seek medical advice Call your healthcare provider right away if you have any of these symptoms of high blood triplett gar: Frequent urination Dizziness Drowsiness Thirst Headache Nausea or vomiting Abdominal pain Eyesight changes Fast breathing Confusion or loss of consciousness Also call your provider right away if you have any of these signs of low blood sugar: Fatigue Headache Shakes Excess sweating Hunger Feeling anxious or restless Eyesight changes Drowsiness Weakness Confusion or loss of consciousness Call 911 Call 911 if any of these occur: Chest pain or shortness of breath Dizziness or fainting Weakness of an arm or leg or one side of the face Trouble speaking or seeing Date Last Reviewed: 03/27/201619997099-4052 [employer]. [address] [place], [place] [id number]. All righ ts reserved. This information is [...] acupuncture, massage, and others. Date Last Reviewed: 09/26/201719998451-7819 [employer]. [address] [place] [address], [place] [address]. All righ ts reserved. This information is [...] massage, and other methods. Date Last Reviewed: 10/27/201719999283-4769 [employer]. [address] [place] [address]. All [facility] ts reserved. This information is not [...] and should not do. Date Last Reviewed: 02/24/201819997556-0004 [employer]. [address] [place] [address], [place] [address]. All righ ts reserved. This information is not intended as a substitute for professional medical care. Always follow your healthcare professional's instructions. Partial Seizures: Staying Healthy With a little bit of planning, most people with partial seizures are able to lead active, f ulfilling lives. You can, too. Follow these suggestions to stay as healthy as possible and h ead off seizures before they happen. Get regular, moderate exercise Walking and biking are great ways to stay active. Make sure your seizures are under control before starting any exercise program to decrease your risk for injury. Make it safer and mo re fun by asking a friend to join you or consider organized exercise groups or classes. Don't swim until seizures are under control. Then, never swim alone. Because you could become unconscious or veer off the road due to a sudden movement, there i s the potential for danger while cycling if seizures are not well controlled. In addition to the risk for broken bones, head injuries can occur while cycling, so always wear a helmet. Find ways to deal with stress You may have stressors in your everyday life. You may also be feeling some stress from deal ing with seizures. But feeling too much stress may trigger seizures. Try some of these ideas to reduce stress: Consider switching job activities if your work is not compatible with epilepsy. Get more help around the house. Look at having seizures as a chance to review your life's goals. Focus your energy on staying well. Many successful people have coped with seizures. Talk to family and friends about your concerns. Ask your doctor about support groups for people dealing with seizures. Ask your doctor or nurse to show you relaxation methods, such as deep breathing and visu alization. Spend time on a hobby you enjoy. Don't use brain-altering substances Many chemicals can cause or trigger seizures. Even small amounts of alcohol can lead to sei zures. Many illegal drugs also cause severe seizures, even in people who don't normally have them. Listen to your body You can sometimes limit seizures by staying in touch with what your body is telling you. Identify events that may trigger your seizures. For instance, flickering lights from the TV, computer screen, or fluorescent lights trigger seizures in some people. Look for patterns that occur before a seizure happens. Some people notice certain sounds , smells, or sights that aren t really there (called an aura) just before a seizure. Keep your body from becoming overtired. Get enough sleep every night. Get plenty of rest when you are sick. The risk of getting a seizure is high when you are fighting an infection. Date Last Reviewed: 02/24/201819996082-4902 [employer]. [address] [place] [address]. All righ ts reserved. This information is not intended as a substitute for professional medical care. Always follow your healthcare professional's instructions. documented in this encounter Progress Notes Reinaldo Vinson MD - 03/29/2019 3:30 PM PDT Patient: Cristina Buckner Medical Record: [id number] Date of Services: 03/29/2019 Referring Doctor: Yair Gleason MD Chief Complaint: Seizures History of Present Illness: Miss Buckner was a 78-year-old right-handed lady, seen for neurologic evaluation, history of seizures, complex partial with secondary generalization, last seizure was almost 3 years ago presently receiving Topamax 25 mg, 2 tablets twice a day. Patient was given medical educat ion to avoid sleep deprivation, alcohol, stimulus, receptive head trauma. Since I last saw Miss Buckner, she has fallen at least twice requiring a cane or rolling walk er for ambulation. She has experienced increased numbness in her feet and with history of d iabetic polyneuropathy, we'll perform NCS/EMG lower extremities to determine the severity of underlying peripheral neuropathy. When she first evaluated head and head CT scan of the he ad performed in palpable try to get these results. Patient was given medical education and will undergo PT/OT through [facility] for gait training. She has other past mental history of hypertension, hypothyroidism, history of TIA, receivin g aspirin 81 mg daily for stroke prophylaxis. A CBC, CMP, Topamax level will be performed. In addition, patient is requesting to be taken off her Topamax for seizure prophylaxis. Ho wever, a 24 hour ambulatory EEG will be performed first. If the 24-hour ambulatory EEG is n egative, we will consider tapering her Topamax Review of Systems: Denies headache, earache, nasal catarrh, diplopia, blurring of vision, d ysphagia, odynophagia, sore throat, neck masses, hearing loss, chest pain, palpitations, gabby rtness of breath, cough, hemoptysis, abdominal pain, diarrhea, constipation, bowel or bladde r dysfunction, hematuria, dysuria, lymphadenopathies, echhymoses, rashes, and homicidal or suicidal ideations. Present Medication: Current Outpatient Medications Medication Sig Dispense Refill aspirin 325 mg EC tablet Take by mouth. cefdinir (OMNICEF) 300 mg capsule fish oil 1,000 mg capsule Take by [...] mouth 2 times daily for 30 days. 120 tablet 3 traMADol (ULTRAM) 50 mg tablet No current facility-administered medications for this visit. Patient's Allergies: Allergies Allergen Reactions Codeine Other reaction(s): Other (See Comments) unknown Amoxicillin Other reaction(s): No Reaction Indicated Morphine Other reaction(s): No Reaction Indicated Sulfa Antibiotics Other reaction(s): No Reaction Indicated Neurological Examination: Vitals: 03/29/19 1526 BP: 158/80 Pulse: 96 Resp: 20 PainSc: 0 - No pain MENTAL STATUS: The patient is awake, alert, and oriented to time, place, and person. Spee is fluent. able to repeat, able to name simple obvious, follows to two-3 step commands w ith no difficulties CRANIAL NERVES: Funduscopy revealed distinct disc margins. [...] throughout. Tone is normal. SENSORY EXAMINATION: impaired proprioception and vibratory sense at the toes with decrease d light touch in a stocking distribution up to the ankles bilaterally DEEP TENDON REFLEXES: trace to absent throughout PLANTAR RESPONSES: Downgoing bilaterally GAIT: wide-based stance, unable to tandem gait, Romberg was negative, ambulates with a can e or rolling walker CEREBELLAR EXAMINATION: There is no dysmetria on [id number] test. MISCELLANEOUS EXAM: Atraumatic, no evidence of frontal or maxillary sinus tenderness, no ne ck masses, tenderness in the paraspinal cervical spine, trapezius, and suprascapular muscles with the decrease with decreased range of motion space on flexion and extension at 5-10, tenderness in the paraspinal lumbosacral spine with increased pain upon flexion and extensio n at 5-10, abdomen is soft and nontender, extremities equally palpable pulses Clinical Impression: Seizures, complex partial with secondary generalization, last seizure 3 years ago Diabetic polyneuropathy, with gait disorder Hypertension Hx TIA Plan: Patient Instructions [facility] Dr. Reinaldo Vinson, Neurologist Date:03/29/2019 Name:Cristina Buckner :..1940 Please schedule next follow up appt with Dr. Vinson in one year for Seizures, complex partial with secondary generalization, last seizure 3 years ago Diabetic polyneuropathy, with gait disorder Hypertension Hx TIA You have the following tests/procedures ordered: Orders Placed This Encounter Procedures EMG Study- Lower Extremity CBC with Differential Comprehensive Metabolic Panel [facility], External - AMB Referral EEG 24 HR AMBULATORY MONITORING Treatment Option- massage, Acupuncture, Over the counter heat patches (icy hot, thermacare, salonpas) , over the counter creams (aspercream, bengay cream, emu oi l), Relaxation therapy, Water therapy, Cortisone shots, Toradol Injections Suggest reading newspapers. magazines, perform word find exercises such as cross word puzz le, and scrabble, other puzzle games like [employer], [employer]. Play computer/mobile applications such as [employer] and [employer] Continue ASA 81 mg daily Topamax 25 mg, 2 tabs twice A day Discussed to avoid sleep deprivation, alcohol, stimulants, or any type of head trauma Any Questions please call ARIANA Chapin or Dr. Vinson at [facility] General Information on Diabetes Diabetes is a long-term health problem. It means your body does not make enough insulin. Or it may mean that your body cannot use the insulin it makes. Insulin is a hormone in your gerald dy. It lets blood sugar (glucose) reach the cells in your body. All of your cells need gluco se for fuel. When you have diabetes, the glucose in your blood builds up because it cannot get into the cells. This buildup is called high blood sugar (hyperglycemia). Your blood sugar level depends on several things. It depends on what kind of food you eat a nd how much of it you eat. It also depends on how much exercise you get, and how much insuli n you have in your body. Eating too much of the wrong kinds of food or not taking diabetes m edicine on time can cause high blood sugar. Infections can cause high blood sugar even if yo u are taking medicines correctly. These things can also cause low blood sugar: Missing meals Not eating enough food Taking too much diabetes medicine Diabetes can cause serious problems over time if you do not get treated. These problems inc lude heart disease, stroke, kidney failure, and blindness. They also include nerve pain or l oss of feeling in your legs and feet, and gangrene of the feet. By keeping your blood sugar under control you can prevent or delay these problems. Normal blood sugar levels are 80 to 100 before a meal and less than 180in the 1 to 2 hour s after a meal. Home care Follow these guidelines when caring for yourself at home: Follow the diet your healthcare provider gives you. Take insulin or other diabetes medic ine exactly as told to. Watch your blood sugar as you are told to. Keep a log of your results. This will help yo ur provider change your medicines to keep your blood sugar under control. Try to reach your ideal weight. You may be able to cut back on or not have to take diabe manuel medicine if you eat the right foods and get exercise. Do not smoke. Smoking worsens the effects of diabetes on your circulation. You are much more likely to have a heart attack if you have diabetes and you smoke. Take good care of your feet. If you have lost feeling in your feet, you may not see an i njury or infection. Check your feet and between your toes at least once a week. Wear a medical alert bracelet or necklace, or carry a card in your wallet that says you have diabetes. This will help healthcare providers give you the right care if you get very i ll and cannot tell them that you have diabetes. Sick day plan If you get a cold, the flu, or a bacterial or viral infection, take these steps: Look at your diabetes sick plan and call your healthcare provider as you were told to. Y ou may need to call your provider right away if: ? Your blood sugar is above 240 while taking your diabetes medicine ? Your urine ketone levels are above normal or high ? You have been vomiting more than 6 hours ? You have trouble breathing or your breath robertson s a fruity smell ? You have a high fever ? You have a fever for several days and you are not getting better ? You get light-headed and are sleepier than usual Keep taking your diabetes pills (oral medicine) even if you have been vomiting and are f eeling sick. Call your provider right away because you may need insulin to lower your blood sugar until you recover from your illness. Keep taking your insulin even if you have been vomiting and are feeling sick. Call your provider right away to ask if you need to change your insulin dose. This will depend on your blood sugar results. Check your blood sugar every 2 to 4 hours, or at least 4 times a day. Check your ketones often. If you are vomiting and having diarrhea, watch them more often . Do not skip meals. Try to eat small meals on a regular schedule. Do this even if you do not feel like eating. Drink water or other liquids that do not have caffeine or calories. This will keep you f rom getting dehydrated. If you are nauseated or vomiting, takes small sips every 5 minutes. To prevent dehydration try to drink a cup (8 ounces) of fluids every hour while you are awak e. General care Always bring a source of fast-acting sugar with you in case you have symptoms of low blood sugar (below 70). At the first sign of low blood sugar, eat or drink 15 to 20 grams of fast- acting sugar to raise your blood sugar. Examples are: 3 to 4 glucose tablets. You can buy these at most drugstores. 4 ounces (1/2 cup) of regular (not diet) softdrinks 4 ounces (1/2 cup) of any fruit juice 8 ounces (1 cup) of milk 5 to 6 pieces of hard candy 1 tablespoon of honey Check your blood sugar 15 minutes after treating yourself. If it is still below 70, take 15 to 20 more grams of fast-acting sugar. Test again in 15 minutes. If it returns to normal (7 0 or above), eat a snack or meal to keep your blood sugar in a safe range. If it stays low, call your doctor or go to an emergency room. Follow-up care Follow-up with your healthcare provider, or as advised. For more information about diabetes , visit the [place] [employer] website at www.diabetes.org or call 056-643-4474. When to seek medical advice Call your healthcare provider right away if you have any of these symptoms of high blood triplett gar: Frequent urination Dizziness Drowsiness Thirst Headache Nausea or vomiting Abdominal pain Eyesight changes Fast breathing Confusion or loss of consciousness Also call your provider right away if you have any of these signs of low blood sugar: Fatigue Headache Shakes Excess sweating Hunger Feeling anxious or restless Eyesight changes Drowsiness Weakness Confusion or loss of consciousness Call 911 Call 911 if any of these occur: Chest pain or shortness of breath Dizziness or fainting Weakness of an arm or leg or one side of the face Trouble speaking or seeing Date Last Reviewed: 03/27/2016 [id number] [employer]. [address] [place] [address], [place] [address]. All [facility] ts reserved. This information is not [...] acupuncture, massage, and others. Date Last Reviewed: 09/26/201719991122-8272 [employer]. [address] [place] [address], [place] [address]. All [facility] ts reserved. This information is not [...] massage, and other methods. Date Last Reviewed: 2017 [employer]. [address] [place] [address]. All righ ts reserved. This information is [...] and should not do. Date Last Reviewed: 02/24/2018 [employer]. [address] [place] [address]. All [facility] ts reserved. This information is not intended as a substitute for professional medical care. Always follow your healthcare professional's instructions. Partial Seizures: Staying Healthy With a little bit of planning, most people with partial seizures are able to lead active, f ulfilling lives. You can, too. Follow these suggestions to stay as healthy as possible and h ead off seizures before they happen. Get regular, moderate exercise Walking and biking are great ways to stay active. Make sure your seizures are under control before starting any exercise program to decrease your risk for injury. Make it safer and mo re fun by asking a friend to join you or consider organized exercise groups or classes. Don't swim until seizures are under control. Then, never swim alone. Because you could become unconscious or veer off the road due to a sudden movement, there i s the potential for danger while cycling if seizures are not well controlled. In addition to the risk for broken bones, head injuries can occur while cycling, so always wear a helmet. Find ways to deal with stress You may have stressors in your everyday life. You may also be feeling some stress from deal ing with seizures. But feeling too much stress may trigger seizures. Try some of these ideas to reduce stress: Consider switching job activities if your work is not compatible with epilepsy. Get more help around the house. Look at having seizures as a chance to review your life's goals. Focus your energy on staying well. Many successful people have coped with seizures. Talk to family and friends about your concerns. Ask your doctor about support groups for people dealing with seizures. Ask your doctor or nurse to show you relaxation methods, such as deep breathing and visu alization. Spend time on a hobby you enjoy. Don't use brain-altering substances Many chemicals can cause or trigger seizures. Even small amounts of alcohol can lead to sei zures. Many illegal drugs also cause severe seizures, even in people who don't normally have them. Listen to your body You can sometimes limit seizures by staying in touch with what your body is telling you. Identify events that may trigger your seizures. For instance, flickering lights from the TV, computer screen, or fluorescent lights trigger seizures in some people. Look for patterns that occur before a seizure happens. Some people notice certain sounds , smells, or sights that aren t really there (called an aura) just before a seizure. Keep your body from becoming overtired. Get enough sleep every night. Get plenty of rest when you are sick. The risk of getting a seizure is high when you are fighting an infection. Date Last Reviewed: 02/24/201819998600-1546 [employer]. [address] [place] [address]. All righ ts reserved. This information is not intended as a substitute for professional medical care. Always follow your healthcare professional's instructions. Reinaldo Vinson MD03/29/201915:57 Electronically signed NOTE: Part of this report was transcribed using voice recognition software. Every effort was made to ensure accuracy. However, inadvertent computerize transcriptionist errors may be present documented in this enc ounter Plan of Treatment + + +--------+ + + | Name | Type | Priori | Associated Diagnoses | Order Schedule | | | | ty | | | + + +--------+ + + | Comprehensive | Lab | Routin | Seizure (HCC) | 1 Occurrences | | Metabolic Panel | | e | | starting 03/29/2019 | | | | | | until 03/29/2020 | + + +--------+ + + | EEG 24 HR AMBULATORY | Neurology | Routin | Seizure (HCC) | 1 Occurrences | | MONITORING | | e | | starting 03/29/2019 | | | | | | until 03/29/2020 | + + +--------+ + + | Hemoglobin A1C | Lab | Routin | Diabetes mellitus | 1 Occurrences | | | | e | type 2 in nonobese | starting 03/29/2019 | | | | | (HCC) | until 03/29/2020 | + + +--------+ + + + + +--------+ + + | Name | Type | Priori | Associated Diagnoses | Order Schedule | | | | ty | | | + + +--------+ + + | [facility] | Outpatient | Routin | Diabetic | Ordered: 03/29/2019 | | Physical Therapy, | Referral | e | polyneuropathy | | | External - AMB | | | associated with type | | | Referral | | | 2 diabetes mellitus | | | | | | ([facility]) Neurologic | | | | | | gait disorder | | + + +--------+ + + documented as of this encounter Procedures + +--------+ + + + | Procedure Name | Priori | Date/Time | Associated Diagnosis | Comments | | | ty | | | | + +--------+ + + + | LABS - EXTERNAL SCAN | | 03/31/2019 | | Results for this | | | | 12:00 AM | | procedure are in the | | | | PDT | | results section. | + +--------+ + + + | CBC WITH | Routin | 03/30/2019 | | Results for this | | DIFFERENTIAL | e | 1:53 PM | | procedure are in the | | | | PDT | | results section. | + +--------+ + + + | HEMOGLOBIN A1C | Routin | 03/30/2019 | | Results for this | | | e | 1:53 PM | | procedure are in the | | | | PDT | | results section. | + +--------+ + + + | COMPREHENSIVE | Routin | 03/30/2019 | | Results for this | | METABOLIC PANEL | e | 1:53 PM | | procedure are in the | | | | PDT | | results section. | + +--------+ + + + documented in this encounter Results EMG Study- Lower Extremity (09/10/2019 2:00 PM PST) + + + | Narrative | Performed At | + + + | Dilia Joel MD 09/10/2019 2:18 PM Please see | | | scanned report. | | + + + LABS - EXTERNAL SCAN (03/31/2019 12:00 AM PDT) + + + | Narrative | Performed At | + + + | Ordered by an | | | unspecified provider. | | + + + CBC with Differential (03/30/2019 1:53 PM PDT) + + + + + + | Component | Value | Ref Range | Performed | Pathologist | | | | | At | Signature | + + + + + + | WBC | 6.0 | 4.5 - 11.0 | REFERENCE | | | | | | LAB | | | | | | [facility] | | + + + + + + | Red Blood | 4.19 | 3.8 - 5.1 | REFERENCE | | | Cells | | | LAB | | | | | | [facility] | | + + + + + + | Hemoglobin | 13.3 | 12.0 - 16.0 | REFERENCE | | | | | | LAB | | | | | | [facility] | | + + + + + + | Hct | 38.2 | 35 - 45 | REFERENCE | | | | | | LAB | | | | | | [facility] | | + + + + + + | MCV | 91.3 | 81 - 99 | REFERENCE | | | | | | LAB | | | | | | [facility] | | + + + + + + | RDW | 13.0 | 10.5 - 15.0 | REFERENCE | | | | | | LAB | | | | | | [facility] | | + + + + + + | MCH | 32 | 27 - 33 | REFERENCE | | | | | | LAB | | | | | | [facility] | | + + + + + + | MCHC | 35 | 30 - 36 | REFERENCE | | | | | | LAB | | | | | | [facility] | | + + + + + + | Platelet | 314 | 140 - 440 | REFERENCE | | | Count | | | LAB | | | | | | [facility] | | + + + + + + | % | 57.5 | 39 - 80 | REFERENCE | | | Neutrophils | | | LAB | | | | | | [facility] | | + + + + + + | % | 27.9 | 24 - 44 | REFERENCE | | | Lymphocytes | | | LAB | | | | | | [facility] | | + + + + + + | Monocyte % | 12.3 (H) | 0 - 12 | REFERENCE | | | | | | LAB | | | | | | [facility] | | + + + + + + | Eosinophils | 1.2 | 0 - 6 | REFERENCE | | | % | | | LAB | | | | | | [facility] | | + + + + + + | Basophils % | 1.1Comment: | 0 - 2 | REFERENCE | | | | Instructions Received: | | LAB | | | | Fax To: KAREL Holbrook, | | [facility] | | | | [place] at ([phone]) | | | | | | [phone] | | | | | | | | | | + + + + + + + + | Specimen | + + | | + + + + + | Narrative | Performed At | + + + | Testing Performed at: [facility] CLIA: [id number] - [address] | REFERENCE LAB | | [place] [address] | [facility] | + + + + + + + + | Performing | Address | City/State/Zipcode | Phone Number | | Organization | | | | + + + + + | REFERENCE LAB | [address] [place] | [phone] | | [place] | | [address] | | + + + + + | REFERENCE LAB | [address] | [place] | [phone] | | [facility] | | [address] | | + + + + + Hemoglobin A1C (03/30/2019 1:53 PM PDT) + + + + + + | Component | Value | Ref Range | Performed | Pathologist | | | | | At | Signature | + + + + + + | Hemoglobin | 4.7 | | REFERENCE | | | A1c | | | LAB | | | | | | [facility] | | + + + + + + | Estimated | 88Comment: | | REFERENCE | | | Average | Reference Range for | | LAB | | | Glucose | HEMOGLOBIN A1c: | | [facility] | | | | Non-Diabetic | | | | | | <5.7% | | | | | | Increased Risk for | | | | | | Diabetes 5.7% - 6.4% | | | | | | Diagnostic for | | | | | | Diabetes >6.4 | | | | | | Diabetic Goal | | | | | | <7.0%These | | | | | | values are for | | | | | | non- individuals | | | | | | according to the | | | | | | [place] [employer] | | | | | | Association. 'Diabetes | | | | | | Care. | | | | | | 2009;33(suppl):S15-S61.' | | | | | | Hb A1C results may be | | | | | | falsely decreased in the | | | | | | presence of conditions | | | | | | that shorten red cell | | | | | | survival such as the | | | | | | presence of unstable | | | | | | hemoglobins or hemolytic | | | | | | anemia. Results may be | | | | | | falsely elevated in the | | | | | | presence of Iron | | | | | | deficiency | | | | | | anemia.Instructions | | | | | | Received: Fax To: KAREL | | | | | | REINAL[place]brook ([id number]) | | | | | | [phone] | | | | + + + + + + + + | Specimen | + + | | + + + + + | Narrative | Performed At | + + + | Testing Performed at: [facility] CLIA: [id number] - [address] | REFERENCE LAB | | [place] [address] | [facility] | + + + + + + + + | Performing | Address | City/State/Zipcode | Phone Number | | Organization | | | | + + + + + | REFERENCE LAB | [address] | [place] | [phone] | | [place] | | [address] | | + + + + + | REFERENCE LAB | [address] | [place] | [phone] | | [facility] | | [address] | | + + + + + Comprehensive Metabolic Panel (03/30/2019 1:53 PM PDT) + + + + + + | Component | Value | Ref Range | Performed | Pathologist | | | | | At | Signature | + + + + + + | Sodium | 140 | 132 - 143 | REFERENCE | | | | | | LAB | | | | | | [facility] | | + + + + + + | Potassium | 3.4 (L) | 3.6 - 5.1 | REFERENCE | | | | | | LAB | | | | | | [facility] | | + + + + + + | Chloride | 107 | 95 - 112 | REFERENCE | | | | | | LAB | | | | | | [facility] | | + + + + + + | Carbon | 22 | 19 - 31 | REFERENCE | | | dioxide | | | LAB | | | | | | [facility] | | + + + + + + | Anion Gap | 14.4 | 7 - 21 | REFERENCE | | | | | | LAB | | | | | | [facility] | | + + + + + + | Glucose | 90 | 70 - 100 | REFERENCE | | | | | | LAB | | | | | | [facility] | | + + + + + + | BUN | 13 | 6 - 23 | REFERENCE | | | | | | LAB | | | | | | [facility] | | + + + + + + | Creatinine | 0.50 (L) | 0.70 - 1.18 | REFERENCE | | | | | | LAB | | | | | | [facility] | | + + + + + + | GFR | 119 | | REFERENCE | | | ESTIMATE | | | LAB | | | (REF) | | | [facility] | | + + + + + + | BUN/Creatin | 26.0 | 6.0 - 28.6 | REFERENCE | | | ine Ratio | | | LAB | | | | | | [facility] | | + + + + + + | Calcium | 9.4 | 8.5 - 10.3 | REFERENCE | | | | | | LAB | | | | | | [facility] | | + + + + + + | AST (SGOT) | 51 (H) | 13 - 39 | REFERENCE | | | (REF) | | | LAB | | | | | | [facility] | | + + + + + + | ALT (SGPT) | 45 | 7 - 52 | REFERENCE | | | (REF) | | | LAB | | | | | | [facility] | | + + + + + + | ALK PHOS | 91 | 31 - 130 | REFERENCE | | | | | | LAB | | | | | | [facility] | | + + + + + + | BILIRUBIN, | 0.5 | 0.0 - 1.2 | REFERENCE | | | TOTAL | | | LAB | | | | | | [facility] | | + + + + + + | Protein, | 6.7 | 6.0 - 8.3 | REFERENCE | | | Total | | | LAB | | | | | | [facility] | | + + + + + + | Albumin | 4.2 | 3.5 - 5.0 | REFERENCE | | | | | | LAB | | | | | | [facility] | | + + + + + + | Globulin | 2.5 | 1.8 - 3.5 | REFERENCE | | | | | | LAB | | | | | | [facility] | | + + + + + + | A/G Ratio | 1.7Comment: | 1.1 - 2.4 | REFERENCE | | | | ESTIMATED GFR Reference | | LAB | | | | Range:GFR = Less than | | [facility] | | | | 60: Chronic Kidney | | | | | | Disease, if found over a | | | | | | 3 month period.GFR = | | | | | | Less than 15: Kidney | | | | | | Failure.For | | | | | | Americans, multiply the | | | | | | calculated GFR by | | | | | | 1.21.GFR calculation is | | | | | | not valid for patients | | | | | | under age 18 years.For | | | | | | patients over age 70 | | | | | | please interpret results | | | | | | with caution as results | | | | | | have not been validated | | | | | | for this calculation | | | | | | method Please Note:Total | | | | | | Protein Reference range | | | | | | change as of | | | | | | 03/16/2018.Please Note: | | | | | | Calcium reference range | | | | | | change as of | | | | | | 05/14/2018.Instructions | | | | | | Received: Fax To: KAREL | | | | | | REINALDO Holbrook ([id number]) | | | | | | [phone] | | | | + + + + + + + + | Specimen | + + | | + + + + + | Narrative | Performed At | + + + | Testing Performed at: [facility] CLIA: [id number] - [address] | REFERENCE LAB | | [place] [address] | [facility] | + + + + + + + + | Performing | Address | City/State/Zipcode | Phone Number | | Organization | | | | + + + + + | REFERENCE LAB | [address] | [place] | [phone] | | [place] | | [address] | | + + + + + | REFERENCE LAB | [address] [facility] | [place] | [phone] | | [facility] | | [address] | | + + + + + documented in this encounter Visit Diagnoses + + | Diagnosis | + + | Seizure (HCC) - Primary Other convulsions | + + | 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
--- OUTSIDE RECORDS SUMMARY | ~2020-05-21 | XMS | Encounter Summary ---
Demographics + + + | Address | [address] | | | [place] [address] | + + + | Home Phone | | + + + | Preferred Language | Unknown | + + + | Marital Status | | + + + | Jain Affiliation | 1077 | + + + | Race | Unknown | + + + | Ethnic Group | Unknown | + + + Author + + + | Author | [facility] | | | and [place] | + + + | Organization | [facility] | | | [...] Team Providers + +------+ + | Care Stoneworking Sander Name | Role | Phone | + +------+ + | Yair Gleason MD | PCP | | + +------+ + Reason for Visit +---------+--------+ + | Reason | Onset | Comments | | | Date | | +---------+--------+ + | Testing | 05/13/ | EEG | | | 2019 | | +---------+--------+ + Encounter Details +--------+ + + + + | Date | Type | Department | Care Team | Description | +--------+ + + + + | 05/13/ | Telephone | [facility] | Dari Hansen RN | Testing (EEG) | | 2019 | | [facility] | | | | | | CLINIC [address] | | | | | | [address] [place], | | | | | | [place] [address] | | | | | | [phone] | | | +--------+ + + + [...] Telephone Encounter - Dari Hansen RN - 05/13/2019 1:48 PM PDTPlease call to discuss./Lorena Hansen RN elephone Enco unter - Dari Hansen RN - 05/13/2019 1:48 PM PDT----- Message from Lisa Hines sent at 05/13/2019 11:20 PDT ----- Regarding: EEG [place], Patient was scheduled for 05/03 for the 24HR EEG. Yung called to check on her that day and adrian gamez said her was ill and she wouldn't be in. Yung asked her if the following day would work. She said yes she would be here 05/04. She ended up being a no show for that appt as mane baker. I called to reschedule today and patient said that she didn't know if she still needed th is test done and she wanted to speak with Dr. Vinson before scheduling again. Just wanted to pa ss the message along so we were all on the same page. Let me know if we need to move forward with this test. Thank you! Lisa [facility] umented in this encounter Plan of Treatment Not on filedocumented as of this encounter Visit Diagnoses Not on filedocumented in this encounter"
--- OUTSIDE RECORDS SUMMARY | ~2020-05-21 | XMS | Encounter Summary ---
Demographics + + + | Address | [address] | | | [place] [address] | + + + | Home Phone | | + + + | Preferred Language | Unknown | + + + | Marital Status | | + + + | Protestant Affiliation | 1077 | + + + | Race | Unknown | + + + | Ethnic Group | Unknown | + + + Author + + + | Author | [facility] | | | and [place] | + + + | Organization | [facility] | | | [...] Team Providers + +------+ + | Care Tube Sizer Operator Name | Role | Phone | [...] | | | | [place] | [address] | | | | | [address] | [phone] | | | | | [phone] | | | +--------+ + + + [...]
--- OUTSIDE RECORDS SUMMARY | ~2020-05-21 | XMS | Encounter Summary ---
Demographics + + + | Address | [address] | | | [place] [address] | + + + | Home Phone [...] Team Providers + +------+ + | Care Pan Shaker Name | Role | Phone | + +------+ + PCP | Unavailable | + +------+ + Encounter Details +--------+ + + + + | Date | Type | Department | Care Team | Description | +--------+ + + + + | 01/24/ | Hospital | [facility] | Garth Vinson MD | | | 2015 | Encounter | [facility] | [address] | | | | | [facility] [address] | [place], [place] | | | | | [address] [place], | [address] | | | | | [place] [address] | | | | | | [phone] | | | +--------+ + + + [...]
--- OUTSIDE RECORDS SUMMARY | ~2020-05-21 | XMS | Encounter Summary ---
Demographics + + + | Address | [address] | | | [place] [address] | + + + | Home Phone [...] Team Providers + +------+ + | Care Equipment Validation Specialist Name | Role | Phone | [...] | | | | [place] | [address] | | | | | [place] | [place], [place] | | | | | [address] | [address] | | | | | [phone] | [phone] | | | | | | | [...]
--- OUTSIDE RECORDS SUMMARY | ~2020-05-21 | XMS | Encounter Summary ---
Demographics + + + | Address | [address] | | | [place] [address] | + + + | Home Phone | | + + + | Preferred Language | Unknown | + + + | Marital Status | | + + + | Hinduism Affiliation | 1077 | + + + [...] Team Providers + +------+ + | Care Stock Mixer Name | Role | Phone | + +------+ + PCP | Unavailable | + +------+ + Encounter Details +--------+ + + + + | Date | Type | Department | Care Team | Description | +--------+ + + + + | 12/23/ | Hospital | [facility] | Levon Araujo, MARITZA | | | 2012 | Encounter | [facility] | [address] | | | | | [address] [place] | [place], [place] | | | | | [place], [place] | [address] | | | | | [address] | [phone] | | | | | [phone] | | | +--------+ + + + [...]
--- OUTSIDE RECORDS SUMMARY | ~2020-05-21 | XMS | Encounter Summary ---
Demographics + + + | Address | [address] [facility] | | | [place] [address] | + + + | Home Phone [...] Team Providers + +------+ + | Care Maternal Child Nurse Name | Role | Phone | [...] [place] | | | | | [facility] [facility], | [address] | | | | | [place] [address] | | | | | | [phone] | | | +--------+ + + + [...]
--- OUTSIDE RECORDS SUMMARY | ~2020-05-21 | XMS | Encounter Summary ---
Demographics + + + | Address | [address] [facility] | | | [place] [address] | + + + | Home Phone | | + + + | Preferred Language | Unknown | + + + | Marital Status | | + + + | Hinduism Affiliation | 1077 | + + + | Race | Unknown | + + + | Ethnic Group | Unknown | + + + Author + + + | Author | [facility] | | | and [place] | + + + | Organization | [facility] | [...] Team Providers + +------+ + | Care Senior Process Control Tech Name | Role | Phone | [...] DR | | | | | [address] [facility], | [facility], [place] | | | | | [place] [address] | [address] | | | | | [phone] | [phone] | | | | | | | [...]
--- OUTSIDE RECORDS SUMMARY | ~2020-05-21 | XMS | Encounter Summary ---
Demographics + + + | Address | [address] | | | [place] [address] | + + + | Home Phone [...] Team Providers + +------+ + | Care Gang Drill Press Operator Name | Role | Phone | + +------+ + PCP | Unavailable | + +------+ + Encounter Details +--------+ + + + + | Date | Type | Department | Care Team | Description | +--------+ + + + + | 09/10/ | Hospital | [facility] | [place], | | | 2013 | Encounter | H[facility] MED SURG | Edward Mariano, | | | | | [address] | [address] | | | | | [place] | [place], [place] | | | | | [address] | [address] | | | | | [phone] | [phone] | | | | | | | [...] documented as of this encounter Miscellaneous Notes Op Note - Edward Armenta MD - 09/10/2013 9:57 AM PST PROCEDURE REPORT DATE OF PROCEDURE: 09/10/2013 PREOPERATIVE DIAGNOSES: 1. History of diverticulitis and loose bowels. 2. Worsening gastroesophageal reflux disease symptoms. POSTOPERATIVE DIAGNOSES: 1. History of diverticulitis and loose bowels. 2. Worsening gastroesophageal reflux disease symptoms. PROCEDURE PERFORMED: 1. Esophagogastroduodenoscopy with biopsies. 2. Colonoscopy. SURGEON: Edward Armenta MD INDICATIONS: A 72-year-old female with intermittent bouts of left lower quadrant abdominal pain, loose b owels. She had known diverticulosis, possible it is. Plan was made for a colonoscopy for e valuation. In addition she had some worsening reflux symptoms on daily PRILOSEC. Plan was made for upper endoscopy as well. FINDINGS: 1. Evidence of fairly poor esophageal clearance versus free reflux into the esophagus. 2. A small hiatal hernia. 3. Mild gastritis. 4. Multiple diverticula in the colon. No evidence of any inflammation or narrowing. ANESTHESIA: Conscious sedation. BLOOD LOSS: Minimal. COMPLICATIONS: None. SPECIMENS: Gastric biopsy for RENUKA test. EG junction biopsies. PROCEDURE: With the patient in the left lateral recumbent position under IV sedation a bite block was inserted. The scope was passed easily through the oropharynx, passed down the esophagus. T here was a fairly large amount of fluid in the esophagus indicating either poor esophageal clearance or reflux. The distal esophagus had evidence of some chronometer adjuster yue possibly acute esophagitis. Biopsies were obtained. Retroflexion confirmed small hiata l hernia. There was some bile in the stomach. Distal antral area had evidence of some mildly significant gastritis. Biopsy is obtained for RENUKA. The duodenum w as without diagnostic abnormalities. The scope was withdrawn. The patient tolerated that p ortion of the procedure well. She was turned around on the table. The colonoscope was introduced and passed easily up through the entire length of the colon to t he cecal pit which was confirmed with the identification of the appendiceal orifice and the ileocecal valve. Slow withdrawal of the scope did not reveal any significant findings other than significant diverticulosis throughout the descending and si gmoid colon. There was no narrowing or evidence of inflammation. There were no polyps seen . Retroflexion in the rectum did not reveal any abnormalities. The scope was withdrawn. The patient tolerated the procedures well. PLAN: Plan will be for a 10-year colonoscopy followup. She should stay on a high fiber, high natali er intake diet. She should let my office know if reflux symptoms are ongoing and worsening. Cc: Yair Gleason MD [facility] Signed and Approved by: EDWARD ARMENTA 09/14/2013 08:47:00 documented in this encounter Plan of Treatment Not on filedocumented as of this encounter Visit Diagnoses Not on filedocumented in this encounter"
--- OUTSIDE RECORDS SUMMARY | ~2020-05-21 | XMS | Encounter Summary ---
Demographics + + + | Address | [address] | | | [place] [address] | + + + | Home Phone [...] Providers + +------+ + | Care Senior Director Insight Name | Role | Phone | + [...] | | THERAPY [address] | [place] | | | | | [place] | [address] | | | | | [address] | [phone] | | | | | [phone] | | | +--------+ + + + [...]
--- OUTSIDE RECORDS SUMMARY | ~2020-05-21 | XMS | Encounter Summary ---
Demographics + + + | Address | [address] | | | [place] [address] | + + + | Home Phone | | + + + | Preferred Language | Unknown | + + + | Marital Status | | + + + | Scientology Affiliation | 1077 | + + + [...] Team Providers + +------+ + | Care District Operations Manager Name | Role | Phone | [...] | | | CENTER [address] | [facility] | | | | | [address] [place], [place] | [place] [address] | | | | | [address] | [phone] | | | | | [phone] | | | +--------+ + + + [...]
--- OUTSIDE RECORDS SUMMARY | ~2020-05-21 | XMS | Encounter Summary ---
Demographics + + + | Address | [address] [facility] [address] | | | [place] [address] | + + + | Home Phone [...] Team Providers + +------+ + | Care Weathercaster Name | Role | Phone | + +------+ + | Yair Gleason MD | PCP | | + +------+ + Reason for Visit +--------+--------+ + | Reason | Onset | Comments | | | Date | | +--------+--------+ + | Other | 03/02/ | f/u after fall in clinic | | | 2018 | | +--------+--------+ + Encounter Details +--------+ [...] [place] | | | | | | [address] | | | | | | [phone] | | | +--------+ + + + [...] this encounter Miscellaneous Notes Telephone Encounter - Sarah Corbett RN - 03/02/2018 11:04 AM PDTCalled pt to follow up after pt had a fall in the clinic 01/22/2018. Pt states she is doing well, and denies any pr oblems stemming from the fall. Pt states her R knee is doing well, she has almost no pain in her knee. RN encouraged pt to call clinic with any questions or concerns that the orthopedi c department could help her with. Sarah Corbett docu mented in this encounter Plan of Treatment Not on filedocumented as of this encounter Visit Diagnoses Not on filedocumented in this encounter"
--- OUTSIDE RECORDS SUMMARY | ~2020-05-21 | XMS | Encounter Summary ---
Demographics + + + | Address | [address] [facility] | | | [place] [address] | + + + | Home Phone [...] Providers + +------+ + | Care Furniture Decals Inspector Name | Role | Phone | + +------+ + PCP | Unavailable | + +------+ + Encounter Details +--------+ + + + + | Date | Type | Department | Care Team | Description | +--------+ + + + + | 09/03/ | Hospital | [facility] | Checo Gomez | | | 2011 | Encounter | HOSPITAL BUSINESS | MD Yen[address] | | | | | [place] [address] | [place] | | | | | [place] | [address] | | | | | [address] | | | | | | [phone] | | | +--------+ + + + [...]
--- OUTSIDE RECORDS SUMMARY | ~2020-05-21 | XMS | Encounter Summary ---
Demographics + + + | Address | [address] [facility] | | | [place] [address] | + + + | Home Phone | | + + + | Preferred Language | Unknown | + + + | Marital Status | | + + + | Orthodox Affiliation | 1077 | + + + | Race | Unknown | + + + | Ethnic Group | Unknown | + + + Author + + + | Author | [facility] | | | and [place] | + + + | Organization | [facility] | | [...] Team Providers + +------+ + | Care Beveler Name | Role | Phone | + +------+ + | Yair Gleason MD | PCP | | + +------+ + Reason for Visit + +--------+ + | Reason | Onset | Comments | | | Date | | + +--------+ + | Lab Results | 05/24/ | | | | 2019 | | [...] [address] | | | | | [place] [address] | | | | | | [phone] | | | +--------+ + + + [...] Telephone Encounter - Dari Hansen RN - 05/25/2019 3:29 PM PDTDid you want to tell pt a nything other than the Topamax level. I can call pt, if you would like? /RBeith, RNElectroni shirley signed by Dari Hansen, RN at 05/25/2019 3:30 PM PDTTelephone Encounter - Dane Arias - 05/25/2019 2:52 PM PDTPt called back for this result elephone Encounter - Garth Vinson MD - 2018 8:03 AM PDTcalled and left message that topamax level is available for review, 1.6 Dasha ctronically signed by Garth Vinson MD at 05/24/2019 8:04 AM PDTdocumented in this encount er Plan of Treatment Not on filedocumented as of this encounter Visit Diagnoses Not on filedocumented in this encounter"
--- OUTSIDE RECORDS SUMMARY | ~2020-05-21 | XMS | Encounter Summary ---
Demographics + + + | Address | [address] | | | [place] [address] | + + + | Home Phone | | + + + | Preferred Language | Unknown | + + + | Marital Status | | + + + | Congregation Affiliation | 1077 | + + + | Race | Unknown | + + + | Ethnic Group | Unknown | + + + Author + + + | Author | [facility] | | | and [place] | + + + | Organization | [facility] | | [...] Team Providers + +------+ + | Care Convalescent Sitter Name | Role | Phone | + +------+ + PCP | Unavailable | + +------+ + Encounter Details +--------+ + + + + | Date | Type | Department | Care Team | Description | +--------+ + + + + | 02/06/ | Hospital | [facility] | Garth Vinson MD | | | 2015 | Encounter | HOSPITAL XRAY [address] | [address] | | | | | [address] | [place], [place] | | | | | [place] | [address] | | | | | [address] | | | | | | [phone] | | | +--------+ + + + [...] | MRI BRAIN WO | Routin | 02/06/2015 | | Results for this | | CONTRAST | e | 2:04 PM | | procedure are in the | | | | PDT | | results section. | + +--------+ + + + documented in this encounter Results MRI Brain wo Contrast (02/06/2015 2:04 PM PDT) + + | Specimen | + + | | + + + + + | Narrative | Performed At | + + + | ORIGINAL HISTORY: Seizures. BRAIN MRI STUDY: | | | Correlation is made with study performed on 03/10/12. Routine | | | sequences are provided on this 3.0 vito magnet. COMPARISON: | | | 01/09/12. The fourth ventricle and perimesencephalic cisterns are | | | normal. The third and lateral ventricles are likewise unremarkable. | | | No intracranial hemorrhage is identified. There are prominent deep | | | white matter periventricular T2 hyperintensities noted. This | | | appears quite similar to the prior study. The basal ganglia regions, | | | brainstem, and cerebellum are unremarkable. No temporal lobe lesion | | | is identified. The pituitary and pineal gland regions are normal. | | | The vascular flow voids also appear normal. The orbits are | | | unremarkable. Minimal ethmoid sinus mucosal thickening is present. | | | No temporal bone abnormality is identified. The nasopharynx and | | | parotid gland regions are normal. CONCLUSION: There are advanced | | | deep white matter chronic small vessel ischemic changes present. No | | | focal mass lesion is evident. JOB: [id number] | | | Read By: JOSEPH WILEY MD Released By: JOSEPH WILEY MD | | | Date: 02/06/2015 20:20 | | + + + + + | Procedure Note | + + | Dileep, Rad Results In - 09/03/2017 7:02 PM PST ORIGINAL HISTORY:Seizures. | | BRAIN MRI STUDY:Correlation is made with study performed on 03/10/12. Routine sequences | | are provided on this 3.0 vito magnet. COMPARISON:01/09/12. The fourth ventricle and | | perimesencephalic cisterns are normal. The third and lateral ventricles are likewise | | unremarkable. No intracranial hemorrhage is identified. There are prominent deep white | | matter periventricular T2 hyperintensities noted. This appears quite similar to the | | prior study. The basal ganglia regions, brainstem, and cerebellum are unremarkable. No | | temporal lobe lesion is identified. The pituitary and pineal gland regions are normal. | | The vascular flow voids also appear normal. The orbits are unremarkable. Minimal | | ethmoid sinus mucosal thickening is present. No temporal bone abnormality is | | identified. The nasopharynx and parotid gland regions are normal. CONCLUSION:There are | | advanced deep white matter chronic small vessel ischemic changes present. No focal mass | | lesion is evident. JOB: [id number] Read By: JOSEPH WILEY MD Released | | By: JOSEPH WILEY MDDate: 02/06/2015 20:20 | |The fourth ventricle and perimesencephalic cisterns are normal. The third and lateral vent ricles are likewise unremarkable. No intracranial hemorrhage is identified. There are prom inent deep white matter periventricular T2 hyperintensities noted. | |This appears quite similar to the prior study. The basal ganglia regions, brainstem, and c erebellum are unremarkable. No temporal lobe lesion is identified. The pituitary and pinea l gland regions are normal. The vascular flow voids also appear | |normal. The orbits are unremarkable. Minimal ethmoid sinus mucosal thickening is present. No temporal bone abnormality is identified. The nasopharynx and parotid gland regions are normal. | | | |CONCLUSION: | |There are advanced deep white matter chronic small vessel ischemic changes present. No foc al mass lesion is evident. | | | | JOB: [id number] | | | |Read By: JOSEPH WILEY MD | | | |Released By: JOSEPH WILEY MD | |Date: 02/06/2015 20:20 | | | | | + + documented in this encounter Visit Diagnoses Not on filedocumented in this encounter"
--- OUTSIDE RECORDS SUMMARY | ~2020-05-21 | XMS | Encounter Summary ---
Demographics + + + | Address | [address] [facility] | | | [place] [address] | + + + | Home Phone [...] Team Providers + +------+ + | Care Cellophane Wrapping Examiner Name | Role | Phone | + +------+ + PCP | Unavailable | + +------+ + Encounter Details +--------+ + + + + | Date | Type | Department | Care Team | Description | +--------+ + + + + | 01/09/ | Hospital | [facility] | Yair Gleason, | | | 2017 | Encounter | [facility] XRAY [address] | [address] | | | | | [place] | [place], [place] | | | | | [place] | [address] | | | | | [address] | [phone] | | | | | [phone] | | | +--------+ + + + [...] | + +--------+ + + + | JOSE DIGITAL | Routin | 01/09/2017 | | Results for this | | SCREENING BILATERAL | e | 10:44 AM | | procedure are in the | | | | PDT | | results section. | + +--------+ + + + documented in this encounter Results JOSE Digital Screening Bilateral (01/09/2017 10:44 AM PDT) + + | Specimen | + + | | + + + + + | Narrative | Performed At | + + + | EXAMINATION: JOSE SCREEN OUTPATIENT HISTORY: screen | | | COMPARISON STUDY: 08/16/2014. 03/16/2013. 02/01/2009. | | | TECHNIQUE: Computer-aided detection analysis was performed and | | | included in the interpretation of this study. FINDINGS: There | | | are scattered fibroglandular elements bilaterally. No new dominant | | | mass lesion, architectural distortion or suspicious cluster of | | | microcalcifications. Benign bilateral breast calcifications. | | | IMPRESSION: BIRADS Category 2 Benign findings, screening mammogram is | | | recommended in 1 year. COMMENT: 1. A negative or | | | "no suspicious findings" mammogram report should not delay biopsy if | | | clinical suspicious findings are present. 2. About 7% of | | | breast cancers are not visible on mammogram. 3. Dense | | | breasts can obscure significant breast masses. COMMENT: BIRADS | | | category 0 Incomplete: Needs additional imaging evaluation. BIRADS | | | category 1 Negative mammogram. BIRADS category 2 Benign findings. | | | BIRADS category 3 Probably benign finding, short interval follow-up | | | suggested. BIRADS category 4 Suspicious for/of malignancy. BIRADS | | | category 5 Highly suggestive for/of malignancy. JOB #: [id number] | | | Digitally Released by: Ankur Hooker Read By: ANKUR Lennon | | | MD NHUNG Date: 01/17/2017 16:54 | | + + + + + | Procedure Note | + + | Dileep, Rad Results In - 11/06/2017 11:57 AM PST EXAMINATION: | | JOSE SCREEN OUTPATIENT | | | | HISTORY: | | screen | | | | COMPARISON STUDY: | | 08/16/2014. 03/16/2013. 02/01/2009. | | | | TECHNIQUE: | | Computer-aided detection analysis was performed and included in the | | interpretation of this study. | | | | FINDINGS: | | There are scattered fibroglandular elements bilaterally. No new dominant mass | | lesion, architectural distortion or suspicious cluster of microcalcifications. | | Benign bilateral breast calcifications. | | | | | | IMPRESSION: | | BIRADS Category 2 Benign findings, screening mammogram is recommended in 1 | | year. | | | | COMMENT: | | 1. A negative or "no suspicious findings" mammogram report should not | | delay biopsy if clinical suspicious findings are present. | | 2. About 7% of breast cancers are not visible on mammogram. | | 3. Dense breasts can obscure significant breast masses. | | | | COMMENT: | | BIRADS category 0 Incomplete: Needs additional imaging evaluation. | | BIRADS category 1 Negative mammogram. | | BIRADS category 2 Benign findings. | | BIRADS category 3 Probably benign finding, short interval follow-up suggested. | | BIRADS category 4 Suspicious for/of malignancy. | | BIRADS category 5 Highly suggestive for/of malignancy. | | | | | | JOB #: [id number] | | Digitally Released by: Ankur Hooker | | | | | | Read By: ANKUR HOOKER MD | | Date: 01/17/2017 16:54 | | | + + documented in this encounter Visit Diagnoses Not on filedocumented in this encounter
--- OUTSIDE RECORDS SUMMARY | ~2020-05-21 | XMS | Encounter Summary ---
Demographics + + + | Address | [address] | | | [place] [address] | + + + | Home Phone | | + + + | Preferred Language | Unknown | + + + | Marital Status | | + + + | Methodist Affiliation | 1077 | + + + | Race | Unknown | + + + | Ethnic Group | Unknown | + + + Author + + + | Author | [facility] | | | and [place] | + + + | Organization | [facility] | | [...] Providers + +------+ + | Care Supervisor Asbestos Textile Name | Role | Phone | + [...] | [address] [place], | [address] | | | | | [place] [address] | | | | | | [phone] | | | +--------+ + + + [...]
--- OUTSIDE RECORDS SUMMARY | ~2020-05-21 | XMS | Encounter Summary ---
Demographics + + + | Address | [address] [facility] [facility] | | | [place] [address] | + + + | Home Phone [...] Providers + +------+ + | Care Senior Database Engineer Name | Role | Phone | + +------+ + | Yair Gleason MD | PCP | | + +------+ + Reason for Visit + +--------+ + | Reason | Onset | Comments | | | Date | | + +--------+ + | Seizures | 05/13/ | | | | 2019 | | + +--------+ + Encounter Details +--------+ + + + + | Date | Type | Department | Care Team | Description | +--------+ + + + + | 05/13/ | Telephone | [facility] | Garth Vinson MD | Seizures | | 2019 | | HOSPITAL NEUROLOGY | [address] | | | | | CLINIC [address] | [place] | | | | | DR [place], | [address] | | | | | [place] [address] | | | | | | [phone] | | | +--------+ + + + [...] Telephone Encounter - Garth Vinson MD - 05/13/2019 2:29 PM PDTCalled and had a seizure 2 weeks ago, seen and [facility], need to stay on the Topamax, refuses 24 hour ambulatory EEG document ed in this encounter Plan of Treatment Not on filedocumented as of this encounter Visit Diagnoses Not on filedocumented in this encounter"
--- OUTSIDE RECORDS SUMMARY | ~2020-05-21 | XMS | Encounter Summary ---
Demographics + + + | Address | [address] | | | [place] [address] | + + + | Home Phone [...] Team Providers + +------+ + | Care Sonographer Name | Role | Phone | + +------+ + | Yair Gleason MD | PCP | | + +------+ + Reason for Visit + + + | Reason | Comments | + + + | Follow-up | seizures, peripheral neuropathy, gait disorder | + + + Encounter Details +--------+---------+ + + + | Date | Type | Department | Care Team | Description | +--------+---------+ + + + | 03/27/ | Office | [facility] | Garth Vinson MD | Seizure (HCC) | | 2020 | Visit | HOSPITAL NEUROLOGY | [address] | (Primary Dx) | | | | CLINIC [address] | [place] | | | | | DR [place], | [address] | | | | | [place] [address] | | | | | | [phone] | | | +--------+---------+ + + + [...] Instructions Patient Instructions Garth Vinson MD - 03/27/2020 3:00 PM PDTFormatting of this note mi ght be different from the original. Patient Instructions [facility] Neurology Clinic Dr. Garth Vinson, Neurologist Date:03/27/2020 Name:Cristina Buckner :..1940 Please schedule next follow up appt with Dr. Vinson in one year Seizures, complex partial with secondary generalization Peripheral neuropathy, idiopathic, stable Hx Hypertension Hx hypothyroidism Gait disorder, advised to use a cane for ambulation Treatment Option- massage, Acupuncture, Over the counter heat patches (icy hot, thermacare, salonpas) , over the counter creams (aspercream, bengay cream, emu oi l), Relaxation therapy, Water therapy, Cortisone shots, Toradol Injections Suggest reading newspapers. magazines, perform word find exercises such as cross word puzz le, and scrabble, other puzzle games like Spoondate, Cloud Elements. Play computer/mobile applications such as Falcon App and Simpli.fi GAMES topamax 25 mg twice a day for seizure prophylaxis and neuropathic symptoms Last HgbA1C, 4.7, non diabetic range Neurologically stable Advised to avoid sleep deprivation, alcohol, stimulants, or any type of head trauma Use a cane for ambulation to prevent fall in the future Any Questions please call ARIANA Chapin or Dr. Vinson at [facility] Neurology Clinic Partial Seizures: Know What to Do Because [...] what they should and should not do. [employer] last reviewed this educational content on 02/24/201819995240-9207 The [employer]. [address] [place] [address]. All righ ts reserved. This information is [...] high when you are fighting an infection. [employer] last reviewed this educational content on 02/24/201819998717-4742 [employer]. [address] [place] [address]. All righ ts reserved. This information is [...] electrical nerve stimulation), acupuncture, massage, and others. [employer] last reviewed this educational content on 09/26/201719990504-4714 [employer]. [address] [place] [address]. All righ ts reserved. This information is [...] nerve stimulation), acupuncture, massage, and other methods. [employer] last reviewed this educational content on 10/27/201719993872-3537 [employer]. [address] [place] [address], [place] [address]. All righ ts reserved. This information is not intended as a substitute for professional medical care. Always follow your healthcare professional's instructions. documented in this encounter Progress Notes Garth Vinson MD - 03/27/2020 3:00 PM PDT Patient: Cristina Buckner Medical Record: [id number] Date of Services: 03/27/2020 Referring Doctor: Yair Gleason MD Chief Complaint: Seizures, complex partial with secondary generalization History of Present Illness: Ms. Mejía is a 79-year-old right-handed lady, seen for neurologic evaluation, treated f or seizures, complex partial with secondary generalization, presently taking Topamax 25 mg, 1 tablet twice a day. Patient's been doing well seizure-free since March 2019 we will perfor m a CBC, CMP, Topamax level today. She was given education to avoid sleep deprivation, alco hol, stimulants, any type of trauma. In addition, the significance of peripheral neuropathy, idiopathic. Last hemoglobin A1c wa s 4.7, nondiabetic range. Her symptoms in her feet are quite tolerable though advised to us e a cane for ambulation with mild gait instability. Also some evidence of hearing disorder and if any worsening advised to see her PCP. Review of Systems: Denies headache, earache, nasal catarrh, diplopia, blurring of vision, d ysphagia, odynophagia, sore throat, neck masses, hearing loss, chest pain, palpitations, gabby rtness of breath, cough, hemoptysis, abdominal pain, diarrhea, constipation, bowel or bladde r dysfunction, hematuria, dysuria, lymphadenopathies, echhymoses, rashes, and homicidal or suicidal ideations. Current Outpatient Medications Medication Sig Dispense Refill aspirin 325 mg EC tablet Take by mouth. EPINEPHrine auto-injector 0.3 mg/0.3 mL injection fish oil 1,000 mg capsule Take by [...] mg tablet Take 1 tablet by mouth nightly for 30 days. 60 tablet 11 No current facility-administered medications for this visit. Allergies Allergen Reactions Codeine Nausea Only Amoxicillin Nausea Only Morphine Other (See Comments) Elevated heart rate Neurological Examination: Vitals: 03/27/20 1458 BP: 120/80 Pulse: 75 Resp: 20 PainSc: 0 - No pain MENTAL STATUS: The patient is awake, alert, and oriented to time, place, and person. [facility] is fluent. Memory, attention, comprehension, and [...] Strength is 5/5 throughout. Tone is normal. Hearing loss noted SENSORY EXAMINATION: Impaired proprioception and vibratory sense at the toes with decrease d light touch in a stocking submission to the ankles bilaterally DEEP TENDON REFLEXES: Trace to absent throughout PLANTAR RESPONSES: Downgoing bilaterally GAIT: Wide-based stance, difficulty in tandem gait, Romberg was negative, advised to use a cane for ambulation and support CEREBELLAR EXAMINATION: There is no dysmetria on wwpche-kf-yxdl test. MISCELLANEOUS EXAM: Well Kept, well nourished, Atraumatic, no evidence of frontal or maxil ricky sinus tenderness, no neck masses, abdomen is soft and nontender, extremities equally p alpable pulses Clinical Impression: Seizures, complex partial with secondary generalization Peripheral neuropathy, idiopathic, stable Gait disorder, advised to use a cane for ambulation Plan: Please schedule next follow up appt with Dr. 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 magazines, perform word find exercises such as cross word puzz le, and scrabble, other puzzle games like Spoondate, [employer]. Play computer/mobile applications such as Falcon App and Sim[employer] GAMES topamax 25 mg twice a day for seizure prophylaxis and neuropathic symptoms Last HgbA1C, 4.7, non diabetic range Neurologically stable Advised to avoid sleep deprivation, alcohol, stimulants, or any type of head trauma Any Questions please call ARIANA Chapin or Dr. Vinson at [facility] Neurology Clinic Garth Vinson MD03/27/20203:25 PM Electronically signed NOTE: Part of this report was transcribed using voice recognition software. Every effort was made to ensure accuracy. However, inadvertent computerize budget clerk errors may be present documented in this enc ounter Plan of Treatment Not on filedocumented as of this encounter Results Topiramate Level (03/27/2020 3:55 PM PDT) [...] Diagnostics | | | | | | [facility] | | | | | | [place]. [...] | | | | | | [facility] José Miguel | | | | | | Bryon Alejo M.D., | | | | | | Ph.D., Laboratory | | | | | | Director [id number] | | | | | | [facility] | | | | | | [place] [address] | | | | | | CLIA #[id number] | | | | + + + + + + + + | Specimen | + + | Blood | + + + + + + + | Performing | Address | City/State/Zipcode | Phone Number | | Organization | | | | + + + + + | REFERENCE LAB | [address] | [place], [place] | | | [facility] - | | [address] | | | [place] | | [...] | mL/min/1.73m2 | [facility] | | | [facility] | RATE,ESTIMATED | | HOSPITAL | | | | mL/min/1.88o1Dqyj than | | LABORATORY | | | [...] + + | [facility] | [address] | [place] | [phone] | | HOSPITAL LABORATORY | | [address] | | + + + + + documented in this encounter Visit Diagnoses + + | Diagnosis | + + | Seizure (HCC) - Primary Other convulsions | + + documented in this encounter
--- OUTSIDE RECORDS SUMMARY | ~2020-05-21 | XMS | Encounter Summary ---
Demographics + + + | Address | [address] | | | [place] [address] | + + + | Home Phone [...] Providers + +------+ + | Care Supervisor Customer Services Name | Role | Phone | + [...] [place], [place] | | | | | [address] | [address] | | | | | [phone] | [phone] | | | | | | | [...]
--- OUTSIDE RECORDS SUMMARY | ~2020-05-21 | XMS | Encounter Summary ---
Demographics + + + | Address | [address] | | | [place] [address] | + + + | Home Phone [...] Team Providers + +------+ + | Care Pig Handler Name | Role | Phone | + +------+ + PCP | Unavailable | + +------+ + Encounter Details +--------+ + + + + | Date | Type | Department | Care Team | Description | +--------+ + + + + | 02/04/ | Hospital | [facility] | [facility] | | | 2011 | Encounter | HOSPITAL EMERGENCY | MD [address] | | | | | CENTER [address] | [facility] | | | | | [address] [place], [place] | [place] [address] | | | | | [address] | [phone] | | | | | [phone] | | | +--------+ + + + [...]
--- OUTSIDE RECORDS SUMMARY | ~2020-05-21 | XMS | Encounter Summary ---
Demographics + + + | Address | [address] | | | [place] [address] | + + + | Home Phone | | + + + | Preferred Language | Unknown | + + + | Marital Status | | + + + | Church Affiliation | 1077 | + + + | Race | Unknown | + + + | Ethnic Group | Unknown | + + + Author + + + | Author | [facility] | | | and [place] | + + + | Organization | [facility] | | | [...] Team Providers + +------+ + | Care Welder First Class Name | Role | Phone | + +------+ + PCP | Unavailable | + +------+ + Encounter Details +--------+ + + + + | Date | Type | Department | Care Team | Description | +--------+ + + + + | 11/17/ | Hospital | [facility] | Emmy Roberts, | | | 2013 | Encounter | HOSPITAL EMERGENCY | [facility] [address] | | | | | CENTER [address] | [place] | | | | | [place] | [address] | | | | | [address] | | | | | | [phone] | | | +--------+ + + + [...]
--- OUTSIDE RECORDS SUMMARY | ~2020-05-21 | XMS | Encounter Summary ---
Demographics + + + | Address | [address] | | | [place] [address] | + + + | Home Phone [...] Team Providers + +------+ + | Care Chip Loft Worker Name | Role | Phone | [...] | | | [place], [place] | [address] | | | | | [address] | [phone] | | | | | [phone] | | | +--------+ + + + [...]
--- OUTSIDE RECORDS SUMMARY | ~2020-05-21 | XMS | Encounter Summary ---
Demographics + + + | Address | [address] | | | [place] [address] | + + + | Home Phone [...] Team Providers + +------+ + | Care Manufacturing Executive Name | Role | Phone | + +------+ + PCP | Unavailable | + +------+ + Encounter Details +--------+ + + + + | Date | Type | Department | Care Team | Description | +--------+ + + + + | 09/14/ | Hospital | [facility] | Cole Addison | | | 2011 | Encounter | HOSPITAL ORTHOPEDIC | MD [address] | | | | | [address] [place] | [place] | | | | | [place] | [place], [place] | | | | | [address] | [address] | | | | | [phone] | [phone] | | | | | | | [...]
--- OUTSIDE RECORDS SUMMARY | ~2020-05-21 | XMS | Encounter Summary ---
Demographics + + + | Address | [address] | | | [place] [address] | + + + | Home Phone | | + + + | Preferred Language | Unknown | + + + | Marital Status | | + + + | Protestant Affiliation | 1077 | + + + | Race | Unknown | + + + | Ethnic Group | Unknown | + + + Author + + + | Author | [facility] | | | and [place] | + + + | Organization | [facility] | | | [...] Providers + +------+ + | Care Chip Unloader Name | Role | Phone | [...] | | | [place] | [address] | | | | | [address] | | | | | | [phone] | | | +--------+ + + + [...] participate in the care of this patient. [facility] Signed and Approved by: JOHN JOEL MD 03/20/2017 10:24:00 documented in this encounter Plan of Treatment Not on filedocumented as of this encounter Visit Diagnoses Not on filedocumented in this encounter"
--- OUTSIDE RECORDS SUMMARY | ~2020-05-21 | XMS | Encounter Summary ---
Demographics + + + | Address | [address] [facility] | | | [place] [address] | + + + | Home Phone [...] Team Providers + +------+ + | Care Youth Program Director Name | Role | Phone | [...] | | | | [place] | [address] | | | | | [address] | [phone] | | | | | [phone] | | | +--------+ + + + [...]
--- OUTSIDE RECORDS SUMMARY | ~2020-05-21 | XMS | Encounter Summary ---
Demographics + + + | Address | [address] [facility] | | | [place] [address] | + + + | Home Phone [...] Team Providers + +------+ + | Care Last Repairer Name | Role | Phone | [...] | | | | [place] | [address] | | | | | [address] | [phone] | | | | | [phone] | | | +--------+ + + + [...]
--- OUTSIDE RECORDS SUMMARY | ~2020-05-21 | XMS | Encounter Summary ---
Demographics + + + | Address | [address] [facility] [facility] | | | [place] [address] | + + + | Home Phone [...] Team Providers + +------+ + | Care Architecture Instructor Name | Role | Phone | [...] | | | [place], [place] | [address] | | | | | [address] | [phone] | | | | | [phone] | | | +--------+ + + + [...]
--- OUTSIDE RECORDS SUMMARY | ~2020-05-21 | XMS | Encounter Summary ---
Demographics + + + | Address | [address] | | | [place] [address] | + + + | Home Phone [...] Team Providers + +------+ + | Care Polymer Materials Consultant Name | Role | Phone | + +------+ + PCP | Unavailable | + +------+ + Encounter Details +--------+ + + + + | Date | Type | Department | Care Team | Description | +--------+ + + + + | 09/20/ | Hospital | [facility] | Yair Gleason, | | | 2014 | Encounter | HOSPITAL XRAY [address] | [address] | | | | | [address] | [place], [place] | | | | | [place] | [address] | | | | | [address] | [phone] | | | | | [phone] | | | +--------+ + + + [...]
--- OUTSIDE RECORDS SUMMARY | ~2020-05-21 | XMS | Encounter Summary ---
Demographics + + + | Address | [address] [facility] | | | [place] [address] | + + + | Home Phone [...] Team Providers + +------+ + | Care Horizontal Drill Operator Name | Role | Phone | [...] | | | | [facility] | [address] | | | | | [place] [address] | | | | | | [phone] | | | +--------+ + + + [...]
--- OUTSIDE RECORDS SUMMARY | ~2020-05-21 | XMS | Encounter Summary ---
Demographics + + + | Address | [address] [facility] [facility] | | | [place] [address] | + + + | Home Phone | | + + + | Preferred Language | Unknown | + + + | Marital Status | | + + + | Evangelical Affiliation | 1077 | + + + | Race | Unknown | + + + | Ethnic Group | Unknown | + + + Author + + + | Author | [facility] | | | and [place] | + + + | Organization | [facility] | | | [...] Team Providers + +------+ + | Care Water And Sewer Systems Superintendent Name | Role | Phone | + +------+ + PCP | Unavailable | + +------+ + Encounter Details +--------+ + + + + | Date | Type | Department | Care Team | Description | +--------+ + + + + | 07/07/ | Hospital | [facility] | [place], | | | 2011 | Encounter | [facility] [place] | Hiro [place], | | | | | [address] [place] | [address] | | | | | [place] | [place] | | | | | [address] | [address] | | | | | [phone] | [phone] | | | | | | | [...]
--- OUTSIDE RECORDS SUMMARY | ~2020-05-21 | XMS | Encounter Summary ---
Demographics + + + | Address | [address] | | | [place] [address] | + + + | Home Phone | | + + + | Preferred Language | Unknown | + + + | Marital Status | | + + + | Mu-Ism Affiliation | 1077 | + + + | Race | Unknown | + + + | Ethnic Group | Unknown | + + + Author + + + | Author | [facility] | | | and [place] | + + + | Organization | [facility] | | [...] Providers + +------+ + | Care Mechanical Tech Name | Role | Phone | [...] | | | [place] | [address] | | | | | [address] | | | | | | [phone] | | | +--------+ + + + [...]
--- OUTSIDE RECORDS SUMMARY | ~2020-05-21 | XMS | Encounter Summary ---
Demographics + + + | Address | [address] [facility] | | | [place] [address] | + + + | Home Phone | | + + + | Preferred Language | Unknown | + + + | Marital Status | | + + + | Congregational Affiliation | 1077 | + + + | Race | Unknown | + + + | Ethnic Group | Unknown | + + + Author + + + | Author | [facility] | | | and [place] | + + + | Organization | [facility] | | | and [place] | + + + | Address | Unknown | + + + | Phone | Unavailable | + + + Support + + +---------+ + | Name | Relationship | Address | Phone | + + +---------+ + | Iwlliamalexa Buckner | ECON | Unknown | | + + +---------+ + | Yohannes Kyree | ECON | Unknown | | + + +---------+ + Care Team Providers + +------+ + | Care Pipe Line Repairer Name | Role | Phone | [...] | | | [place] | [address] | | | | | [address] | | | | | | [phone] | | | +--------+ + + + [...] RESULTS: The study was reviewed using the Crystalsol system. During the wakeful portion of the [...] participate in the care of your patient. [facility] Signed and Approved by: GARTH PRINCE MD 11/08/2014 19:49:00 documented in this enc ounter Plan of Treatment Not on filedocumented as of this encounter Visit Diagnoses Not on filedocumented in this encounter"
--- OUTSIDE RECORDS SUMMARY | ~2020-05-21 | XMS | Encounter Summary ---
Demographics + + + | Address | [address] | | | [place] [address] | + + + | Home Phone | | + + + | Preferred Language | Unknown | + + + | Marital Status | | + + + | Christianity Affiliation | 1077 | + + + | Race | Unknown | + + + | Ethnic Group | Unknown | + + + Author + + + | Author | [facility] | | | and [place] | + + + | Organization | [facility] | | [...] Providers + +------+ + | Care Watch Dial Stoner Name | Role | Phone | + [...] | | [facility] [address] | [place], [place] | | | | | [address] [facility], | [address] | | | | | [place] [address] | | | | | | [phone] | | | +--------+ + + + [...]
--- OUTSIDE RECORDS SUMMARY | ~2020-05-21 | XMS | Encounter Summary ---
Demographics + + + | Address | [address] [address] | | | [place] [address] | + + + | Home Phone [...] Team Providers + +------+ + | Care Theatre Director Name | Role | Phone | [...] | | | | [place], [place] | [address] | | | | | [address] | [phone] | | | | | [phone] | | | +--------+ + + + [...] Results for this | | STUDY WO VERT FX | e | 3:29 PM | menopausal state | procedure are in the | | ASSESSMENT | | PDT | | results section. | + +--------+ + + + documented in this encounter Results DEXA Bone Density marisol Basurto (03/24/2019 3:29 PM PDT) + + | [...] + | EXAMINATION: DEXA BONE DENSITY STUDY WO VERT FX ASSESSMENT | [facility] | | HISTORY: [...]
--- OUTSIDE RECORDS SUMMARY | ~2020-05-21 | XMS | Encounter Summary ---
Demographics + + + | Address | [address] [facility] [facility] | | | [place] [address] | + + + | Home Phone [...] Team Providers + +------+ + | Care Business Relations Manager Name | Role | Phone | [...] [place] | | | | | [address] [place], | [address] | | | | | [place] [address] | | | | | | [phone] | | | +--------+ + + + [...]
--- OUTSIDE RECORDS SUMMARY | ~2020-05-21 | XMS | Encounter Summary ---
Demographics + + + | Address | [address] [facility] | | | [place] [address] | + + + | Home Phone [...] Team Providers + +------+ + | Care Production Mechanic Tin Cans Name | Role | Phone | + +------+ + | Yair Gleason MD | PCP | | + +------+ + Reason for Visit +--------+--------+ + | Reason | Onset | Comments | | | Date | | +--------+--------+ + | Other | 04/05/ | call back for Dr. Vinson | | | 2019 | | +--------+--------+ [...] [address] | [place], [place] | | | | | DR [place], | [address] | | | | | [place] [address] | | | | | | [phone] | | | +--------+ + + + [...] Encounter - Garth Vinson MD - 04/05/2019 3:08 PM PDTcalled and left a message to call us back for her blood test results, 2 nd call elephone Encounter - Garth Vinson MD - 04/05/2019 3:07 P M PDTcalled and left a message to call us back for her blood test results, 2 nd callElectron ically signed by Garth Vinson MD at 04/05/2019 3:08 PM PDTTelephone Encounter - Yolanda Samano - 04/05/2019 2:21 [address]TM[address] call from Dr. Vinson on Friday and was returning to s what the results are. Please call patient back. Thank you! documented in this encounter Plan of Treatment Not on filedocumented as of this encounter Visit Diagnoses Not on filedocumented in this encounter"
--- OUTSIDE RECORDS SUMMARY | ~2020-05-21 | XMS | Encounter Summary ---
Demographics + + + | Address | [address] | | | [place] [address] | + + + | Home Phone [...] Team Providers + +------+ + | Care Planogrammer Name | Role | Phone | + +------+ + | Yair Gleason MD | PCP | | + +------+ + Encounter Details +--------+ + + + + | Date | Type | Department | Care Team | Description | +--------+ + + + + | 01/19/ | Hospital | [facility] [facility] | aYir Gleason, | Breast cancer | | 2018 | Encounter | Hospital Mammography | MD 2010 | screening | | | | [address] | [place], [place] | | | | | [place], [place] | [address] | | | | | [address] | [phone] | | | | | [phone] | | | +--------+ + + + [...] + +--------+ + + + | JOSE TOMOSYN | Routin | 01/19/2018 | Breast cancer | Results for this | | SCREENING BILATERAL | e | 1:58 PM | screening | procedure are in the | | | | PDT | | results section. | + +--------+ + + + documented in this encounter Results JOSE Tomosynthesis Screening Bilateral (01/19/2018 1:58 PM PDT) + + | Specimen | + + | | + + + + + | Impressions | Performed At | + + + | IMPRESSION: BIRADS Category: 2. Benign findings. Screening | [facility] | | mammogram is recommended 1 year. COMMENT: 1. A | | | negative or "no suspicious findings" mammogram report should not delay | | | biopsy if clinical suspicious findings are present. 2. | | | About 7% of breast cancers are not visible on mammogram. 3. | | | Dense breasts can obscure significant breast masses. COMMENT: | | | BIRADS category 0 Incomplete: Needs additional imaging evaluation. | | | BIRADS category 1 Negative mammogram. BIRADS category 2 Benign | | | findings. BIRADS category 3 Probably benign finding, short interval | | | follow-up suggested. BIRADS category 4 Suspicious for/of malignancy. | | | BIRADS category 5 Highly suggestive for/of malignancy. | | | Dictated by: Ankur Nam | | + + + + + + | Narrative | Performed At | + + + | EXAMINATION: JOSE TOMOSYN SCREENING BILATERAL HISTORY: Breast | [facility] | | cancer screening COMPARISON STUDY: January 09, 2017, August 16 | | | 2013 TECHNIQUE: Synthesized 2D and tomographic images were | | | evaluated. Computer-aided detection analysis was performed and | | | included in the interpretation of this study. FINDINGS: Breast | | | parenchyma has scattered fibroglandular elements. No dominant mass, | | | architectural distortion or new suspicious cluster of | | | microcalcification is seen. Bilateral benign calcifications. | | + + + + +---------+ + + | Performing | Address | City/State/Zipcode | Phone Number | | Organization | | | | + +---------+ + + | [facility] | | | | + +---------+ + + documented in this encounter Visit Diagnoses + + | Diagnosis | + + | Breast cancer screening Breast screening, unspecified | + + documented in this encounter
--- OUTSIDE RECORDS SUMMARY | ~2020-05-21 | XMS | Encounter Summary ---
Demographics + + + | Address | [address] | | | [place] [address] | + + + | Home Phone [...] Providers + +------+ + | Care Furniture Repair Technician Name | Role | Phone [...] | | | | [place], [place] | [address] | | | | | [address] | [phone] | | | | | [phone] | | | +--------+ + + + [...] carotid | | | bulb. JOB #: [id number] Digitally Released by: Conrado Benz | | | Read By: CONRADO BENZ MD Date: 03/25/2017 16:27 | | + + + + + | Procedure Note | + + | Eliazar Falk Results In - 11/06/2017 12:38 PM PST [...] | | | | | JOB #: [id number] | | Digitally Released by: Conrado Benz [...] sinus disease. JOB #: | | | [id number] Digitally Released by: Conrado Benz Read By: [...] | | | | | JOB #: [id number] | | Digitally Released by: Conrado Benz | | | | | | Read By: CONRADO BENZ MD | | Date: 03/25/2017 16:20 | | | + + documented in this encounter Visit Diagnoses Not on filedocumented in this encounter"
--- OUTSIDE RECORDS SUMMARY | ~2020-05-21 | XMS | Encounter Summary ---
Demographics + + + | Address | [address] | | | [place] [address] | + + + | Home Phone | | + + + | Preferred Language | Unknown | + + + | Marital Status | | + + + | Buddhism Affiliation | 1077 | + + + | Race | Unknown | + + + | Ethnic Group | Unknown | + + + Author + + + | Author | [facility] | | | and [place] | + + + | Organization | [facility] | | [...] Team Providers + +------+ + | Care Enamel Applier Name | Role | Phone | + [...] | | | [place], [place] | [address] | | | | | [address] | [phone] | | | | | [phone] | | | +--------+ + + + [...] are | | | identified. Job No.: [id number] Read By: DEL | | | Saji WALKER MD Released By: DEL WALKER MD Date: 03/20/2016 | | | 20:18 | | + + + + + | Procedure Note | + + | Eliazar Falk Results In - 09/03/2017 10:37 PM PST [...] finding are | | identified. Job No.: [id number] Read By: DEL WALKER MD Released By: | | DEL WALKER MDDate: 03/20/2016 20:18 | | | |REPORT: | |Bipolar hip prosthesis is present. Multiple somewhat rectangular-shaped opacities project o jared the pelvis inlet which may relate to ingested material such as pills. | | | |No periprosthetic lucencies are seen. | | | |IMPRESSION: | |Bipolar hip prosthesis. No periprosthetic lucencies or acute finding are identified. | | | | | |Job No.: [id number] | | | |Read By: DEL WALKER MD | | | |Released By: DEL WALKER MD | |Date: 03/20/2016 20:18 | | | | | + + documented in this encounter Visit Diagnoses Not on filedocumented in this encounter"
--- OUTSIDE RECORDS SUMMARY | ~2020-05-21 | XMS | Encounter Summary ---
Demographics + + + | Address | [address] | | | [place] [address] | + + + | Home Phone | | + + + | Preferred Language | Unknown | + + + | Marital Status | | + + + | Sikhism Affiliation | 1077 | + + + | Race | Unknown | + + + | Ethnic Group | Unknown | + + + Author + + + | Author | [facility] | | | and [place] | + + + | Organization | [facility] | | [...] Team Providers + +------+ + | Care Bonding Machine Setter Name | Role | Phone | + +------+ + | Yair Gleason MD | PCP | | + +------+ + Reason for Visit +--------+--------+ + | Reason | Onset | Comments | | | Date | | +--------+--------+ + | Other | 03/27/ | | | | 2018 | | +--------+--------+ [...] [place] | | | | | DR [address] [place], | [address] | | | | | [place] [address] | | | | | | [phone] | | | +--------+ + + + [...] this encounter Miscellaneous Notes Telephone Encounter - Sissy Sun - 03/27/2018 4:13 PM PDTCalled Pt to reschedule apt on 05/[address] Vinson will be out of clinic. Pt stated her calendar is full and she will yazan l later for an apt in May. lms documented in this encou nter Plan of Treatment Not on filedocumented as of this encounter Visit Diagnoses Not on filedocumented in this encounter"
--- OUTSIDE RECORDS SUMMARY | ~2020-05-21 | XMS | Encounter Summary ---
Demographics + + + | Address | [address] | | | [place] [address] | + + + | Home Phone | | + + + | Preferred Language | Unknown | + + + | Marital Status | | + + + | Temple Affiliation | 1077 | + + + [...] Team Providers + +------+ + | Care Burglar Alarm Superintendent Name | Role | Phone | + +------+ + | Yair Gleason MD | PCP | | + +------+ + Encounter Details +--------+ + + + + | Date | Type | Department | Care Team | Description | +--------+ + + + + | 09/14/ | Hospital | [place] [facility] | Yair Gleason, | Nondisp fx of neck | | 2019 | Encounter | [facility] XRAY [address] | MD [address] | of 4th bone, l | | | | [address] | [place], [place] | hand, init for opn | | | | [place], [place] | [address] | fx | | | | [address] | [phone] | | | | | [phone] | | | +--------+ + + + [...] + + + +---------+ + + | EPINEPHrine | | | 0 | 06/21/20 | | | auto-injector 0.3 | | | | 19 | | | mg/0.3 mL injection | | | | | | + [...] | 0 | 10/23/20 | | | (KLRYLIE-CON) 10 mEq | | | | 17 [...] + +--------+ + + + | XR HAND LEFT 3 + VW | Routin | 09/14/2019 | Nondisp fx of neck | Results for this | | | e | 4:19 PM | of 4th bone, l | procedure are in the | | | | PST | hand, init for opn | results section. | | | | | fx | | + +--------+ + + + documented in this encounter Results XR Hand Left 3 + Vw (09/14/2019 4:19 PM PST) + + | Specimen | + + | | + + + + + | Impressions | Performed At | + + + | Acute fracture of the proximal diaphysis of the 4th metacarpal. | [facility] | | Osteoarthritis. Decreased bone mineral density. Dictated by: | | | Ankur Nam Electronically Signed by: Ankur Nam on | | | 09/14/2019 4:26 PM | | + + + + + + | Narrative | Performed At | + + + | EXAMINATION: XR HAND LEFT 3 + VW HISTORY: Nondisp fx of neck | [facility] | | of 4th MC bone, l hand, init for opn fx COMPARISON STUDY: None | | | FINDINGS: Films in multiple projections show obliquely oriented | | | fracture at the proximal 1/3 4th metacarpal diaphysis. There is 3 mm | | | foreshortening. Degenerative changes of the 1st carpometacarpal | | | joint and distal radiocarpal joints. Decreased bone mineral | | | density. | | + + + + + | Procedure Note | + + | Dileep, Rad Results In - 09/14/2019 4:29 PM PST EXAMINATION:XR HAND LEFT 3 + | | VWHISTORY:Nondisp fx of neck of 4th MC bone, l hand, init for opn fxCOMPARISON | | STUDY:NoneFINDINGS:Films in multiple projections show obliquely oriented fracture at the | | proximal 1/3 4th metacarpal diaphysis. There is 3 mm foreshortening. Degenerative | | changes of the 1st carpometacarpal joint and distal radiocarpal joints. Decreased | | bone mineral density.IMPRESSION: Acute fracture of the proximal diaphysis of the 4th | | metacarpal.Osteoarthritis.Decreased bone mineral density.Dictated by: Ankur | | Robbieectronically Signed by: Ankur Nam on 09/14/2019 4:26 PM | | | |FINDINGS: | |Films in multiple projections show obliquely oriented fracture at the proximal 1/3 4th meta carpal diaphysis. There is 3 mm foreshortening. Degenerative changes of the 1st carpometac arpal joint and distal radiocarpal joints. Decreased bone mineral | |density. | | | |IMPRESSION: | |Acute fracture of the proximal diaphysis of the 4th metacarpal. | |Osteoarthritis. | |Decreased bone mineral density. | | | |Dictated by: Ankur Nam | | | | | + + + +---------+ + + | Performing | Address | City/State/Zipcode | Phone Number | | Organization | | | | + +---------+ + + | [facility] | | | | + +---------+ + + documented in this encounter Visit Diagnoses + + | Diagnosis | + + | Nondisp fx of neck of 4th MC bone, l hand, init for opn fx | + + documented in this encounter"
--- OUTSIDE RECORDS SUMMARY | ~2020-05-21 | XMS | Encounter Summary ---
Demographics + + + | Address | [address] | | | [place] [address] | + + + | Home Phone [...] Providers + +------+ + | Care Manager Private Name | Role | Phone | + +------+ + | Yair Gleason MD | PCP | | + +------+ + Reason for Visit + +--------+ + | Reason | Onset | Comments | | | Date | | + +--------+ + | Medication Related | 06/10/ | | | | 2018 | | + +--------+ + Encounter Details [...] [address] | | | | | [place] [address] | | | | | | [phone] | | | +--------+ + + + [...] Telephone Encounter - Dari Hansen RN - 06/10/2018 4:43 PM PDTPlease schedule f/u appt, prescription has been filled /ARIANA RivasElectronically signed by Dari Hansen RN at 06/10 4:43 PM PDTTelephone Encounter - Dari Hansen RN - 06/10/2018 9:48 AM PDTLast suri led 12/01/17, Last seen 11/24/17 /ARIANA RivasElectronically signed by Dari Hansen RN at 06/10 9:51 AM PDTTelephone Encounter - Mena Cárdenas - 06/10/2018 9:01 AM PDTFAXED [facility] TOPIRAMATE 25MG TABS Last Fill:05/11/18 QTY:60 SIG:TAKE ONE TABLET BY MOUTH TWICE A DAY Mena Cárdenas documented in this encoun ter Plan of Treatment Not on filedocumented as of this encounter Visit Diagnoses + + | Diagnosis | + + | 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
--- OUTSIDE RECORDS SUMMARY | ~2020-05-21 | XMS | Encounter Summary ---
Demographics + + + | Address | [address] | | | [place] [address] | + + + | Home Phone | | + + + | Preferred Language | Unknown | + + + | Marital Status | | + + + | Worship Affiliation | 1077 | + + + | Race | Unknown | + + + | Ethnic Group | Unknown | + + + Author + + + | Author | [facility] | | | and [place] | + + + | Organization | [facility] | | [...] Team Providers + +------+ + | Care General Superintendent Name | Role | Phone | [...] | | | | [place] | [address] | | | | | [address] | [phone] | | | | | [phone] | | | +--------+ + + + [...]
--- OUTSIDE RECORDS SUMMARY | ~2020-05-21 | XMS | Encounter Summary ---
Demographics + + + | Address | [address] [address] | | | [place] [address] | + + + | Home Phone [...] Team Providers + +------+ + | Care Alum Plant Supervisor Name | Role | Phone | [...] [place] | | | | | [place] | [place], [place] | | | | | [address] | [address] | | | | | [phone] | [phone] | | | | | | | [...]
--- OUTSIDE RECORDS SUMMARY | ~2020-05-21 | XMS | Encounter Summary ---
Demographics + + + | Address | [address] | | | [place] [address] | + + + | Home Phone [...] Team Providers + +------+ + | Care Laminating Press Operator Name | Role | Phone [...] | | | | [address] [facility], | [address] | | | | | [place] [address] | | | | | | [phone] | | | +--------+ + + + [...]
--- OUTSIDE RECORDS SUMMARY | ~2020-05-21 | XMS | Encounter Summary ---
Demographics + + + | Address | [address] | | | [place] [address] | + + + | Home Phone [...] Team Providers + +------+ + | Care Research Animal Attendant Name | Role | Phone | + [...] [place] | | | | | | [address] | [address] | | | | | | Phone: | Phone: | | | | | | [phone] | [phone] | | | | | | Fax: | Fax: | | | | | | [phone] | [phone] | +--------+ + + + + + [...] partial seizures | | | | [place] [address] | | with consciousness | | | | [phone] | | impaired ([facility]); | | | | | [...] be different from the original. Patient Instructions [facility] Dr. Garth Vinson, Neurologist Date:05/18/2019 Name:Cristina Buckner :..1940 Please schedule next follow up appt with Dr. 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 magazines, perform word find exercises such as cross word puzz le, and scrabble, other puzzle games like [employer] One, [employer]. Play computer/mobile applications such as [employer] and [employer] Continue topamax Gave medical education to avoid sleep deprivation, alcohol, stimulant, or any type of head trauma Any Questions please call ARIANA Chapin or Dr. Vinson at [facility] FallPrevention Falls often occur [...] more likely to fall. Date Last Reviewed: 01/25/201819999630-5164 [employer]. [address] [place] [address], [place] [address]. All righ ts reserved. This information is [...] and should not do. Date Last Reviewed: 02/24/201819995793-[address] [employer] [place] [address]. All righ ts reserved. This information is [...] unless you ve been trained by a [facility] provider. Speak quietly to the person as [...] Alcohol or drug withdrawal Date Last Reviewed: 08/27/201719992700-7898 [employer]. [address] [place] [address], [place] [address]. All [facility] ts reserved. This information is not [...] acupuncture, massage, and others. Date Last Reviewed: 09/26/201719991628-[address] [employer] [place] [address], [place] [address]. All [facility] ts reserved. This information is not [...] massage, and other methods. Date Last Reviewed: 10/27/201719992470-4709 [employer]. [address] [place] [address], [place] [address]. All righ ts reserved. This information is not intended as a substitute for professional medical care. Always follow your healthcare professional's instructions. documented in this encounter Progress Notes Garth Vinson MD - 05/18/2019 3:30 PM PDT Patient: Cristina Buckner Medical Record: [id number] Date of Services: 05/18/2019 Referring Doctor: Yair [...] advised PT/OT and ga it training at [facility] in [facility]. She has a cane and rolli ng [...] and oriented to time, place, and person. [facility] is fluent. Memory, attention, comprehension, and general [...] CEREBELLAR EXAMINATION: There is no dysmetria on sczzab-wy-xtrx test. 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 Garth Vinson, Neurologist Date:05/18/2019 Name:Cristina Buckner :..1940 Please schedule next follow up appt with Dr. 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 magazines, perform word find exercises such as cross word puzz le, and scrabble, other puzzle games like [employer] One, [employer]. Play computer/mobile applications such as [employer] and [employer] Continue topamax Gave medical education to avoid sleep deprivation, alcohol, stimulant, or any type of head trauma Schedule for NCS/EMG of the lower extremities, ordered on her last visit Any Questions please call ARIANA Chapin or Dr. Vinson at [facility] FallPrevention Falls often occur [...] more likely to fall. Date Last Reviewed: 01/25/201819995429-9323 [employer]. [address] [place] [address], [place] [address]. All righ ts reserved. This information is [...] and should not do. Date Last Reviewed: 02/24/201819990622-[address] [employer] [place] [address]. All righ ts reserved. This information is [...] unless you ve been trained by a [facility] provider. Speak quietly to the person as [...] Alcohol or drug withdrawal Date Last Reviewed: 08/27/201719995975-4669 [employer]. [address] [place] [address], [place] [address]. All righ ts reserved. This information is [...] acupuncture, massage, and others. Date Last Reviewed: 09/26/201719993805-9698 [employer]. [address] [place] [address], [place] [address]. All righ ts reserved. This information is [...] massage, and other methods. Date Last Reviewed: 10/27/201719990593-[address] [employer] [place] [address], [place] [address]. All righ ts reserved. This information is not intended as a substitute for professional medical care. Always follow your healthcare professional's instructions. Garth Vinson MD05/18/201915:49 Electronically signed NOTE: Part of this report was transcribed using voice recognition software. Every effort was made to ensure accuracy. However, inadvertent computerize focusing machine operator errors may be present documented in this enc ounter Plan of Treatment + + +--------+ + + | Name | Type | Priori | Associated Diagnoses | Order Schedule | | | | ty | | | + + +--------+ + + | [facility] | Outpatient | Routin | Gait disorder [...] Diagnostics | | | | | | [facility] | | | | | | [place]. [...] Diagnostics | | | | | | [facility] | | | | | | Bryon Alejo M.D., | | | | | | Ph.D., Laboratory | | | | | | Director [id number] | | | | | | [facility] | | | | | | [place] [address] | | | | | | CLIA #[id number] | | | | + + + + + + + + | Specimen | + + | Blood | + + + + + + + | Performing | Address | City/State/Zipcode | Phone Number | | Organization | | | | + + + + + | REFERENCE LAB | [id number] [facility] | [place], [place] | | | [facility] - | | [address] | | | [facility] [address] | | | | + + [...]
--- OUTSIDE RECORDS SUMMARY | ~2020-05-21 | XMS | Encounter Summary ---
Demographics + + + | Address | [address] | | | [place] [address] | + + + | Home Phone [...] Team Providers + +------+ + | Care Case Investigator Name | Role | Phone | + +------+ + PCP | Unavailable | + +------+ + Encounter Details +--------+ + + + + | Date | Type | Department | Care Team | Description | +--------+ + + + + | 07/03/ | Hospital | [facility] | Juan Pablo Cullen, | | | 2016 | Encounter | [facility] | DO [address] , | | | | | [address] | [place], [place] | | | | | [place], [place] | [address] | | | | | [address] | [phone] | | | | | [phone] | | | +--------+ + + + [...] this encounter Miscellaneous Notes Op Note - Juan Pablo Cullen DO - 07/03/2016 6:13 AM PDT OPERATIVE REPORT DATE OF SURGERY: 07/03/2016. PREOPERATIVE DIAGNOSIS: Left shoulder impingement syndrome with biceps tenosynovitis and partial thickness rotator cuff tear. POSTOPERATIVE DIAGNOSES: Left shoulder impingement syndrome with biceps tenosynovitis with partial thickness rotator cuff tear and glenohumeral joint osteoarthritis. PROCEDURE: Diagnostic and operative arthroscopy left shoulder with: 1. Chondroplasty of the humeral head. 2. Biceps tenotomy. 3. Subacromial decompression. 4. Extensive debridement from anterior to posterior with debridement of a partial thickness rotator cuff tear. SURGEON: Juan Pablo Cullen DO. ANESTHESIA: General with local. COMPLICATIONS: None. EBL: Minimal. FLUIDS: 900 mL of LACTATED RINGERS. SPECIMENS: None. SPONGE/NEEDLE COUNT: Correct. PREOPERATIVE ANTIBIOTIC: ANCEF 2 grams IV. DISPOSITION: Stable to PACU. INDICATIONS: Cristina is a pleasant 75-year-old female who had failed conservative management regarding h er left shoulder pain. We had discussed treatment options in the office which included cont inued conservative modalities versus arthroscopic intervention in the form of subacromial decompression, biceps tenotomy and rotator cuff debridement versus repa ir with all other indicated procedures. Risks, benefits, and alternatives to surgery were discussed. Specific risks included but n ot limited to heart attack, stroke, loss or life, loss of limb, nerve injury, vessel injury, infection, DVT formation, stiffness, and continued postoperative pain were discussed. The patient demonstrates understanding of these risks and wishes to procee d with operative intervention. Cristina was admitted to [facility] on 07/03/2016 for the above-stated procedure. OPERATIVE NARRATIVE: Cristina was seen in the preoperative holding area. H&P was updated. Surgical site was sig shania. She was transferred to the OR, transferred from her hospital bed to the surgical table. General anesthetic was administered per anesthesia protocol. General endotracheal tube was placed and secured per anesthesia. 2 grams of ANCEF were administere d IV. Cristina was then placed in the right lateral decubitus position with the [place] wed ge protecting the axillary nerve. All bony prominences were inspected and well padded. She was secured to the bed with a beanbag and multiple straps. Left arm w as placed in an arm burns at 10 pounds of longitudinal traction. Left upper extremity was prepped and draped in sterile fashion. Timeout performed identifying the correct patient, procedure and extremity. Standard posterior portal was then made and trocar introducer was placed into the glenohumeral joint. Sterile saline was used to inflate the joint. Diagnostic portion of the exam was then performed. The patient was noted to have diffuse paralabral fraying. A standard anterior portal was then m jeny under arthroscopic visualization and cannulated and the long head of the biceps tendon a nd its attachment onto the superior labrum was assessed. There was a type 2 superior labral tear with fraying and peel back of the superior labrum on the glenoi d. A meniscal biter was utilized to perform a biceps tenotomy and extensive debridement of the frayed labrum was then performed in standard fashion. Anterior, inferior and posterior labrum was noted to be intact. There were a couple of small loose gerald dies appreciated within the axillary pouch: these were evacuated with the shaver resector. Next, assessment of the glenohumeral joint was performed. The patient was noted to have gra de IV chondral changes of the glenoid as well as the humeral head in a diffuse nature. This is more impressive than what was appreciated on MR imaging. There was some loose unstable chondral tissue along the humeral head which was debrided gently with a standard chondroplasty technique. Subscapularis was noted to have fraying at the superior margin of the subscapularis tendon and this was debrided gently with the shaver resector. The anterior margin of the rotator cuff was assessed. This was the area of concern on MRI. There was noted to be a very small partial thickness fraying along the a rticular margin of the anterior portion of the rotator cuff. The frayed tissue was debrided with a shaver resector. Approximately 10 to 20% of the thickness of th e anterior margin of the rotator cuff was debrided. However, the remaining fibers were note d to be intact. After this was performed, arthroscope was then placed in the subacromial space. The patient was noted to have some bursitis within the subacromi al space which was debrided in standard subacromial decompression fashion. There was a type 2 acromion appreciated and this was transitioned to a type 1 acromion in standard fashion with a 5.5 mm herb. Probing of the rotator cuff insertion demonstrated i ntact fibers with no evidence of partial thickness bursal-sided tearing of the rotator cuff. After this was performed arthroscope was removed from the shoulder. Portal sites were closed with 3-0 nylon in an interrupted protal stitch fashion. 10 ml of 0.5% ROPIVACAINE plain was injected into the protal sites and 20 mL was injected into the triplett bacromial space. A sterile dressing was applied to the left shoulder. The patient's drapes were removed. She was placed in a sling. She was transitioned from the right lateral decubitus position to the supine position. Her anesthesia was reversed per an esthesia protocol. She was extubated and transferred from the surgical table to the hospital bed to the PACU in stable medical condition. The patient tolerated t he procedure very well without any major complications. [facility] Signed and Approved by: JUAN PABLO CULLEN DO 07/17/2016 11:11:00 documented in this encounter Plan of Treatment [...]
--- OUTSIDE RECORDS SUMMARY | ~2020-05-21 | XMS | Encounter Summary ---
Demographics + + + | Address | [address] | | | [place] [address] | + + + | Home Phone [...] Team Providers + +------+ + | Care Sole Stitcher Hand Name | Role | Phone | [...] | | [facility] [address] | [place] [facility] [place], [place] | | | | | [facility], | [address] | | | | | [place] [address] | [phone] | | | | | [phone] | | | +--------+ + + + [...]
--- OUTSIDE RECORDS SUMMARY | ~2020-05-21 | XMS | Encounter Summary ---
Demographics + + + | Address | [address] | | | [place] [address] | + + + | Home Phone | | + + + | Preferred Language | Unknown | + + + | Marital Status | | + + + | Anabaptist Affiliation | [id number] | + + + | Race | Unknown | + + + | Ethnic Group | Unknown | + + + Author + + + | Author | Located Within [facility] | | | and [place] | + + + | Organization | Located Within [facility] | | | and [place] | + + + | Address | Unknown | + + + | Phone | Unavailable | + + + Support + + +---------+ + | Name | Relationship | Address | Phone | + + +---------+ + | Williamalexa Buckner | ECON | Unknown | | + + +---------+ + | Yohannes Kyere | ECON | Unknown | | + + +---------+ + Care Team Providers + +------+ + | Care Retail Loan Originator Assistant Name | Role | Phone | + +------+ + PCP | Unavailable | + +------+ + Encounter Details +--------+ + + + + | Date | Type | Department | Care Team | Description | +--------+ + + + + | 08/07/ | Hospital | [facility] | Garth Vinson MD | | | 2015 | Encounter | [facility] | [address] | | | | | [address] | [place], [place] | | | | | [place], [place] | [address] | | | | | [address] | | | | | | [phone] | | | +--------+ + + + [...] + | CBC W/AUTO | Routin | 08/07/2015 | | Results for this | | DIFFERENTIAL | e | 3:08 PM | | procedure are in the | | | | PDT | | results section. | + +--------+ + + + | URINALYSIS | Routin | 08/07/2015 | | Results for this | | | e | 3:08 PM | | procedure are in the | | | | PDT | | results section. | + +--------+ + + + | COMPREHENSIVE | Routin | 08/07/2015 | | Results for this | | METABOLIC PANEL | e | 3:08 PM | | procedure are in the | | | | PDT | | results section. | + +--------+ + + + documented in this encounter Results Urinalysis (08/07/2015 3:08 PM PDT) + + + + + + | Component | Value | Ref Range | Performed | Pathologist | | | | | At | Signature | + + + + + + | Source | Clean Catch / VOID | | EXTERNAL | | | | | | LAB | | + + + + + + | Clarity, | CLEAR | CLEAR | EXTERNAL | | | Urine | | | LAB | | + + + + + + | Color, | YELLOW | YELLOW | EXTERNAL | | | Urine | | | LAB | | + + + + + + | Specific | 1.01 | 1.005 - 1.030 | EXTERNAL | | | [place], | | | LAB | | | Urine | | | | | + + + + + + | pH, Urine | 6 | 5.0 - 7.0 pH | EXTERNAL | | | | | | LAB | | + + + + + + | Leukocyte | NEGATIVE | NEGATIVE /uL | EXTERNAL | | | Esterase, | | | LAB | | | Urine | | | | | + + + + + + | Nitrite, | NEGATIVE | NEGATIVE | EXTERNAL | | | Urine | | | LAB | | + + + + + + | Protein, | NEGATIVE | NEGATIVE mg/dL | EXTERNAL | | | Urine | | | LAB | | + + + + + + | Glucose, | NORMAL | NORMAL mg/dL | EXTERNAL | | | Urine | | | LAB | | + + + + + + | Reducing | NOT REQUIRED | NEGATIVE | EXTERNAL | | | Substance, | | | LAB | | | UA, POC | | | | | + + + + + + | Ketones, | NEGATIVE | NEGATIVE mg/dL | EXTERNAL | | | Urine | | | LAB | | + + + + + + | Urobilinoge | NORMAL | NORMAL mg/dL | EXTERNAL | | | n, Urine | | | LAB | | + + + + + + | Bilirubin, | NEGATIVE | NEGATIVE mg/dL | EXTERNAL | | | Urine | | | LAB | | + + + + + + | Blood, | NEGATIVE | NEGATIVE /uL | EXTERNAL | | | Urine | | | LAB | | + + + + + + | White Blood | NONE SEEN | </= 5 /HPF | EXTERNAL | | | Cells, | | | LAB | | | Urine | | | | | + + + + + + | RBC | NONE SEEN | </= 5 PER HPF | EXTERNAL | | | | | | LAB | | + + + + + + | Bacteria, | NONE SEEN | NONE SEEN /HPF | EXTERNAL | | | UA | | | LAB | | + + + + + + | Culture | NO | | EXTERNAL | | | Indicated | | | LAB | | + + + + + + | Squamous | NONE SEEN | FEW /LPF | EXTERNAL | | | Epithelial | | | LAB | | | Cells, | | | | | | Urine | | | | | + + + + + + + + | Specimen | + + | | + + + +---------+ + + | Performing | Address | City/State/Zipcode | Phone Number | | Organization | | | | + +---------+ + + | EXTERNAL LAB | | | | + +---------+ + + Comprehensive Metabolic Panel (08/07/2015 3:08 PM PDT) + +-------+ + + + | Component | Value | Ref Range | Performed | Pathologist | | | | | At | Signature | + +-------+ + + + | Sodium | 141 | 132 - 143 | EXTERNAL | | | | | mmol/L | LAB | | + +-------+ + + + | Potassium | 3.6 | 3.3 - 4.9 | EXTERNAL | | | | | mmol/L | LAB | | + +-------+ + + + | Cl | 105 | 95 - 108 mmol/L | EXTERNAL | | | | | | LAB | | + +-------+ + + + | CO2 | 26 | 23 - 34 mmol/L | EXTERNAL | | | | | | LAB | | + +-------+ + + + | Anion Gap | 10 | 7 - 16 | EXTERNAL | | | | | | LAB | | + +-------+ + + + | Calcium | 9.3 | 8.3 - 10.0 | EXTERNAL | | | | | mg/dL | LAB | | + +-------+ + + + | Glucose | 99 | 70 - 110 mg/dL | EXTERNAL | | | | | | LAB | | + +-------+ + + + | BUN, Bld | 11 | 5 - 26 mg/dL | EXTERNAL | | | | | | LAB | | + +-------+ + + + | Creatinine | 0.7 | 0.6 - 1.3 mg/dL | EXTERNAL | | | | | | LAB | | + +-------+ + + + | BUN/Creatin | 15.7 | 7.0 - 24.0 | EXTERNAL | | | ine Ratio | | RATIO | LAB | | + +-------+ + + + | GFR | 60 | >=60 | EXTERNAL | | | ESTIMATE | | mL/min/1.73m2 | LAB | | | (REF) | | | | | + +-------+ + + + | Bilirubin, | 0.4 | <=1.2 mg/dL | EXTERNAL | | | Total | | | LAB | | + +-------+ + + + | Protein, | 7.5 | 6.6 - 8.5 g/dL | EXTERNAL | | | Total | | | LAB | | + +-------+ + + + | Albumin | 3.7 | 3.0 - 4.5 g/dL | EXTERNAL | | | | | | LAB | | + +-------+ + + + | Alkaline | 92 | 46 - 116 U/L | EXTERNAL | | | Phosphatase | | | LAB | | + +-------+ + + + | ALT, | 40 | 14 - 59 U/L | EXTERNAL | | | External | | | LAB | | + +-------+ + + + | AST, | 35 | <=38 U/L | EXTERNAL | | [...] | | + +---------+ + + CBC w/ Auto Differential (08/07/2015 3:08 PM PDT) + +-------+ + + + | Component | Value | Ref Range | Performed | Pathologist | | | | | At | Signature | + +-------+ + + + | WBC | 5.9 | 4.3 - 10.4 | EXTERNAL | | | | | 1000/mm3 | LAB | | + +-------+ + + + | RBC | 4.63 | 4.12 - 5.30 | EXTERNAL | | | | | mil/mm3 | LAB | | + +-------+ + + + | HGB, | 14.4 | 12.4 - 15.7 | EXTERNAL | | | External | | g/dL | LAB | | + +-------+ + + + | HCT, | 39.5 | 37.7 - 47.0 % | EXTERNAL | | | External | | | LAB | | + +-------+ + + + | MCV | 85 | 82 - 97 fl | EXTERNAL | | | | | | LAB | | + +-------+ + + + | MCH | 31.1 | 27.1 - 32.3 pg | EXTERNAL | | | | | | LAB | | + +-------+ + + + | MCHC | 36.5 | 32.0 - 36.9 | EXTERNAL | | | | | g/dL | LAB | | + +-------+ + + + | RDW-CV | 12.6 | <=17.0 % | EXTERNAL | | | | | | LAB | | + +-------+ + + + | Platelet | 391 | 150 - 450 | EXTERNAL | | | Count | | 1000/mm3 | LAB | | | Plasma | | | | | + +-------+ + + + | MPV | 9.6 | 9.4 - 12.3 FL | EXTERNAL | | | | | | LAB | | + +-------+ + + + | % Segmented | 52.9 | 42.0 - 76.0 % | EXTERNAL | | | | | | LAB | | | Neutrophils | | | | | + +-------+ + + + | LYMPH % | 39.9 | 20.0 - 40.0 % | EXTERNAL | | | | | | LAB | | + +-------+ + + + | % Monocytes | 7.2 | <=12.0 % | EXTERNAL | | | | | | LAB | | + +-------+ + + + | Absolute | 3.1 | 2.50 - 8.50 | EXTERNAL | | | Neutrophils | | 1000/mm3 | LAB | | + +-------+ + + + | Absolute | 2.4 | 1.00 - 3.80 | EXTERNAL | | | Lymphocytes | | 1000/mm3 | LAB | | + +-------+ + + + | Absolute | 0.4 | <=1.25 1000/mm3 | EXTERNAL | | | Monocytes | | | LAB | | + +-------+ + + + | SLIDE | NO | | EXTERNAL | | | REVIEW | | | LAB | | + [...]
--- OUTSIDE RECORDS SUMMARY | ~2020-05-21 | XMS | Encounter Summary ---
Demographics + + + | Address | [address] | | | [place] [address] | + + + | Home Phone [...] Team Providers + +------+ + | Care Admin Dir Name | Role | Phone | + +------+ + | Yair Gleason MD | PCP | | + +------+ + Reason for Visit + +--------+ + | Reason | Onset | Comments | | | Date | | + +--------+ + | Medication Refill | 07/13/ | | | | 2018 | | + +--------+ + Encounter Details +--------+ + + + + | Date | Type | Department | Care Team | Description | +--------+ + + + + | 07/13/ | Telephone | [facility] | Garth Vinson MD | Medication Refill | | 2018 | | [facility] | [address] | | | | | CLINIC [address] | [place] | | | | | [address] [place], | [address] | | | | | [place] [address] | | | | | | [phone] | | | +--------+ + + + [...] Notes Telephone Encounter - Ila Schrader [facility] - 07/13/2018 11:02 AM PDTCalled and inform ed pt that rx was sent in. 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 Last seen for TIA on 11/24/17. /ARIANA Rivas elephone Encounter - Lupe Jane - 07/13/2018 9:37 AM PDTPatient is over staying with in [employer] for the week and he works [email or web address]. She forgot her topa max pills in [place]. Could you call a weeks [facility] to [email or web address] ? They also want to know what would happen if she missses a dose or two? Please adv ise. Call back number [phone] documented in this encounter Plan of Treatment [...]
--- OUTSIDE RECORDS SUMMARY | ~2020-05-21 | XMS | Encounter Summary ---
Demographics + + + | Address | [address] | | | [place] [address] | + + + | Home Phone [...] Team Providers + +------+ + | Care Sas Developer Analyst Name | Role | Phone | [...] | | | [place], [place] | [address] | | | | | [address] | [phone] | | | | | [phone] | | | +--------+ + + + [...]
--- OUTSIDE RECORDS SUMMARY | ~2020-05-21 | XMS | Encounter Summary ---
Demographics + + + | Address | [address] | | | [place] [address] | + + + | Home Phone [...] Providers + +------+ + | Care Metal Furniture Assembly Supervisor Name | Role | Phone | + +------+ + | Yair Gleason MD | PCP | | + +------+ + Reason for Visit + +--------+ + | Reason | Onset | Comments | | | Date | | + +--------+ + | Lab Results | 05/26/ | | | | 2019 | | [...] [address] | | | | | [place] [address] | | | | | | [phone] | | | +--------+ + + + [...] Telephone Encounter - Garth Vinson MD - 05/26/2019 2:42 PM PDTcalled and gave topamax l gaurav, 1.6 documented in this encounter Plan of Treatment Not on filedocumented as of this encounter Visit Diagnoses Not on filedocumented in this encounter"
--- OUTSIDE RECORDS SUMMARY | ~2020-05-21 | XMS | Encounter Summary ---
Demographics + + + | Address | [address] [facility] | | | [place] [address] | + + + | Home Phone [...] Team Providers + +------+ + | Care Christian Counselor Name | Role | Phone | + [...] | | | | [place], [place] | [address] | unspecified | | | | [address] | [phone] | chronicity, with | | | | [phone] | | sciatica presence | | | [...] + + | Performing | Address | City/State[facility] | Phone Number | | Organization | [...] Facet degenerative changes lower lumbar spine.Dictated by: Conrado | | Demar | |FINDINGS: | |Bilateral [...]
--- OUTSIDE RECORDS SUMMARY | ~2020-05-21 | XMS | Encounter Summary ---
Demographics + + + | Address | [address] [address] | | | [place] [address] | + + + | Home Phone [...] Team Providers + +------+ + | Care Acoustics Teacher Name | Role | Phone | [...] | | | | [place], [place] | [address] | | | | | [address] | | | | | | [phone] | | | +--------+ + + + [...]
--- OUTSIDE RECORDS SUMMARY | ~2020-05-21 | XMS | Encounter Summary ---
Demographics + + + | Address | [address] [facility] [facility] | | | [place] [address] | + + + | Home Phone [...] Providers + +------+ + | Care Assistant Art Director Name | Role | Phone | + +------+ + | Yair Gleason MD | PCP | | + +------+ + Reason for Visit + +--------+ + | Reason | Onset | Comments | | | Date | | + +--------+ + | Follow-up, Office | 06/15/ | | | Visit | 2018 | | + +--------+ + [...] [address] | | | | | [place] [address] | | | | | | [phone] | | | +--------+ + + + [...] Notes Telephone Encounter - Sissy Sun - 06/15/2018 10:06 AM MARCELAI left mes to schedule a F/Up visit. Lana documented in this enco unter Plan of Treatment Not on filedocumented as of this encounter Visit Diagnoses Not on filedocumented in this encounter"
--- OUTSIDE RECORDS SUMMARY | ~2020-05-21 | XMS | Encounter Summary ---
Demographics + + + | Address | [address] | | | [place] [address] | + + + | Home Phone [...] Team Providers + +------+ + | Care Road Crossing Guard Name | Role | Phone | + [...] | | | | [place] | [address] | | | | | [address] | [phone] | | | | | [phone] | | | +--------+ + + + [...]
--- OUTSIDE RECORDS SUMMARY | ~2020-05-21 | XMS | Encounter Summary ---
Demographics + + + | Address | [address] [facility] [facility] | | | [place] [address] | + + + | Home Phone [...] Team Providers + +------+ + | Care Farm Specialist Name | Role | Phone | [...] [address] | | | | | [place] [address] | | | | | | [phone] | | | +--------+ + + + [...] Telephone Encounter - Suha Fletcher - 04/10/2020 2:06 PM PDTError documented in this encounter Plan of Treatment Not on filedocumented as of this encounter Visit Diagnoses Not on filedocumented in this encounter"
--- OUTSIDE RECORDS SUMMARY | ~2020-05-21 | XMS | Encounter Summary ---
Demographics + + + | Address | [address] [facility] [facility] | | | [place] [address] | + + + | Home Phone [...] Team Providers + +------+ + | Care Pharmacy Student Name | Role | Phone | + [...] | | | | | CONVERSION | [facility] | | | | | DEPARTMENT [address] | [place] | | | | | [address] | [address] | | | | | [place] | [phone] | | | | | [address] | | | | | | [phone] | | | +--------+ + + + [...]
--- OUTSIDE RECORDS SUMMARY | ~2020-05-21 | XMS | Encounter Summary ---
Demographics + + + | Address | [address] | | | [place] [address] | + + + | Home Phone [...] Team Providers + +------+ + | Care Mortician Helper Name | Role | Phone | + +------+ + PCP | Unavailable | + +------+ + Encounter Details +--------+ + + + + | Date | Type | Department | Care Team | Description | +--------+ + + + + | 08/27/ | Hospital | [facility] | Shira Bello, | Syncope and | | 2013 - | Encounter | [facility]ENTER | [address] | collapse; D-dimer, | | | | CLINICAL DECISION | [place] [address] | elevated; GERD | | 08/30/ | | [address] | [phone] | (gastroesophageal | | 2013 | | [place], [place] | | reflux disease); | | | | [phone] | | Lactate blood | | | | [phone] | | increase; Left flank | | [...] | | | | | | failure) ([facility]) | +--------+ + + + + Social [...] 08/30/141939 Date of Service: 08/30/141039 Status: Signed Patent Engineer: García Ferrara MD (Physician) [facility] Service: Hospitalist Discharge Summary Date of Admission: 08/27/2014 Date of Discharge: 08/30/14 Discharge Provider: GARCÍA FERRARA MD Treatment Team: Consulting Physician: Bessie Guerrero MD Admitting Provider: Shira Bello MD Discharge Diagnoses: Principal Problem: Seizure [...] patient had 2 episodes of seizures, F marco aruary 2000, treated in [facility]. Three weeks later had the second episode however not on antiepileptic medications. The patient has left flank pain for a week and is currently on ci profloxacin for urinary tract infection. She still has 3 more days of antibiotics left. The patient left [place], [place] last night and was halting at [place]. She had epigastric pr essure localized without radiation to the left arm, jaw, intrascapular area. It felt similar to her acid reflux pain. She had nausea without vomiting. She took Tums and felt better, an d then slept. This morning they drove to [place] and in the afternoon they were at the [facility]. There she had told her that she had the same epigastric pressure with nausea and di d not feel well. Mild shortness of breath. This lasted for a few minutes. Subsequently she f elt better. [facility] [place] [facility] and when she [...] Dr. Ramirez spoke with neurology on-call doctor yolanda was placed on Topamax. The patient states [...] additionally patient should resume her home r kobe he did find that she is supposed to be on spironolactone and a low-dose of potassium. #7. Hypothyroidism Continued home regimen at discharge #8: Rash: As per prior notes there was suspicion that Keppra may have been the culprit kamilah coleman patient also did have several other medications [...] Reflux Seizures UTI (lower urinary tract infection) NUIQSUT (hard of hearing) Hypothyroid Past Surgical History [...] by mouth 2 (two) times daily wi meals. spironolactone (ALDACTONE) 25 MG tablet Take [...] Temp Temp src Pulse Resp SpO2 Weight 08/30/141120 117/57 mmHg 98.5 F (36.9 C) Oral 79 16 97 % - 08/30/14 0736 127/58 mmHg 97.9 F (36.6 C) Oral 80 16 95 % - 08/30/14 0406 108/55 mmHg 98.3 F (36.8 C) Oral 70 16 95 % - 08/29/14 2333 108/54 mmHg 98.2 F (36.8 C) Oral 68 16 96 % - 08/29/141957 109/58 mmHg 98.3 F (36.8 C) Oral [...] output data in the 24 hours ending 08/30/141929 I&O Detailed Table: Physical Exam Constitutional: She [...] range found 1.0 NM lung ventilation perfusion [[id number]] Resulted: 08/28/14917 Order Status: Completed Updated: 08/28/14922 [...] embolus. urinary tract abdomen pelvis without contrast [[id number]] Resulted: 08/28/1408 Order Status: Completed Updated: 08/28/14812 Narrative: HISTORY: [...] hysterectomy. brain wo contrast and MRA head [[id number]] Resulted: 08/28/14 0158 Order Status: Completed Updated: [...] 28 2014 1:58AM Referring Provider Line: [phone] ID: [id number] US Lower Extremity - Venous Bilateral [[id number]] Resulted: 08/28/14120 Order Status: Completed Updated: 08/28/14123 Narrative: EXAM: BILATERAL LOWER EXTREMITY VENOUS ULTRASOUND EXAM DATE: 08/28/2014 01:41 AM. CLINICAL HISTORY: Elevated d-dimer. COMPARISON: None. TECHNIQUE: Real-time sonographic vascular imaging was performed by the conference concierge through the lower extremities utilizing both color-flow [...] Aug 28 2014 1:21AM Referring Provider Line: [phone] ID: [id number] CT Head Non-Con [[id number]] Resulted: 08/27/141832 Order Status: Completed Updated: 08/27/141838 Narrative: HISTORY:trauma, demographics unknown. TECHNIQUE: Axial noncontrast head CT. Prior examination: None. FINDINGS: Bleach Boiler Packer notable for midline endotracheal tube and enteric [...] evidence of posttraumatic changes. Chest AP Portable [[id number]] Resulted: 08/27/14 171 Order Status: Completed Updated: 08/27/141716 Narrative: HISTORY: [...] Units Date/Time Culture, Stool (with Shiga Toxin) [[id number]] Collected: 08/27/141829 Order Status: Completed Lab Status: Final result Updated: 08/30/14 1257 Specimen Information: Stool / Stool Specimen Description STOOL CULTURE NEGATIVE FOR SHIGA TOXIN TYPE 1 AND 2. CULTURE Result: NEGATIVE FOR SALMONELLA, SHIGELLA AND CAMPYLOBACTER CULTURE Result: IF A YERSINIA OR VIBRIO IS SUSPECTED, PLEASE CONTACT THE MICRO LAB FOR SPECIAL TESTING . CULTURE Result: Testing performed at [facility], [address] [place] [address] C diff toxin by PCR (TAT 3 hr in house) [[id number]] Collected: 08/27/141829 Order Status: Completed Lab Status: Final result Updated: 08/27/14 1939 Specimen Information: Stool / Stool Toxigenic C Difficile NEGATIVE Comment: Testing performed at [facility];[address] [place] [address];[place] [address] 027 NAP1 BI 027 NAP1 BI PRESUMPTIVE NEGATIVE Comment: Detection of 027 NAP1 BI strains of C. difficile is presumptive and for epidemiologica l purposes and not intended to guide or monitor treatment for C. difficile infections. Testing performed at [facility];[address] [place] [address];[place] [address] Impression 1. Sinus rhythm. 2. A 2-dimensional [...] as discussed with her by me as w eh as neurology and other providers as well. 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 You may get the following medications [...] Management by Derrick Hernandez RN at 08/30/14 1229 Author: Derrick Hernandez RN Service: (none) Author Type: Registered Nurse Filed: 08/30/14 1233 Date of Service: 08/30/141228 Status: Signed Patent Engineer: Derrick Hernandez RN (Registered Nurse) 08/30/14 1228 Discharge Planning Evaluation Admitting Diagnosis Seizure w/collapse, [...] DCP: home with providing transportation back to [place], [place]. DERRICK HERNANDEZ onver laurie Transaction, Provider Unknown - 08/30/2014 9:32 AM PST Progress Notes by Elsie Figueroa at 08/30/14 09 Author: Elsie Figueroa Service: (none) Author Type: [place] Filed: 08/30/1432 Date of Service: 08/30/14931 Status: Signed Patent Engineer: Elsie Figueroa (Whizzer) I have met with Mrs. Donnelly in regards to a PCP, she stated that her PCP was Yair Gleason. Updated in chart. Ne Plata, PT - 08/30/2014 9:30 AM PSTFormatting of this note might be different from th e original. Therapy Progress Note by Ne Pozo, PT at 08/30/14929 Author: Ne Pozo PT Service: (none) Author Type: Physical Therapist Filed: 08/30/14 1127 Date of Service: 08/30/14929 Status: Signed Patent Engineer: Ne Pozo PT (Physical Therapist) 08/30/14929 PT Last Visit PT Received On 08/30/14 Reason for Treatment Deconditioning Requires PT Follow Up Yes Follow up PT Only? No Assistance Required 1 person Food Safety Scientist Needed No Precautions Other Precautions fall risk Cognition Overall Cognitive Status WFL Orientation Level Oriented;Other (Comment) (a little forgetful today-repeats aezdewy-lpjhjyjv-zxdzvayqtu) Bed Mobility Supine to Sit Supervision;Patient appears [...] Service: (none) Author Type: Registered Nurse Filed: 08/30/1434 Date of Service: 08/30/14531 Status: Signed Patent Engineer: Sarahy Jiang RN (Registered Nurse) Pt has been sleeping all night, no complaints of itching. Will continue to monitor. onver laurie Transaction, Provider Unknown - 08/29/2014 6:39 PM PST Nurse Progress Note by Mayra Acosta RN at 08/29/141838 Author: Mayra Acosta RN Service: (none) Author Type: Registered Nurse Filed: 08/29/141840 Date of Service: 08/29/141838 Status: Signed Patent Engineer: Mayra Acosta RN (Registered Nurse) Pt's rash has spread to include L ear and back of neck. Pt complains that it is "itchy and irritating", but denies throat discomfort of difficulty breathing. Dr. Ramirez called and rafaela pink re: rash and says to continue to antihistamine regimen. Will continue to monitor. John Acosta RN Tk Dorman MD - 08/29/2014 12:29 PM PST Progress Notes by Tk Ramirez MD at 08/29/14 9717 Author: Tk Ramirez MD Service: (none) Author Type: Physician Filed: 08/29/14 1240 Date of Service: 08/29/141228 Status: Signed Patent Engineer: Tk Ramirez MD (Physician) [facility] Service: Hospitalist Progress Note Hospital Day: LOS: 2 days Post-Op Day: * No surgery found * SUBJECTIVE Patient Summary: admission H and P Dr. Bello:"HISTORY OF PRESENT ILLNESSdiabetes arsenio litus type , hertension, testing acid reflux, hypothyroidism. The patient had 2 episodes of seizures, November 2000, treated in [facility]. Three weeks later had the second episode triana jared not on antiepileptic medications. The patient has left flank pain for a week and is curr ently on ciprofloxacin for urinary tract infection. She still has 3 more days of antibiotics left. The patient left [place] last night and was halting at [place]. She had epigast ninfa pressure localized without radiation to the left arm, jaw, intrascapular area. It felt s imilar to her acid reflux pain. She had nausea without vomiting. She took Tums and felt bett er, and then slept. This morning they drove to [place] and in the afternoon they were at the [facility]. There she had told her that she had the same epigastric pressure with nausea and did not feel well. Mild shortness of breath. This lasted for a few minutes. Subsequently she felt better. They were heading towards [place] [...] SpO2: [94 %-97 %] 95 % (08/29 1113) Physical Exam Constitutional: She is oriented to [...] reflux disease) D-dimer, elevated Rash, drug; keppra Ct Head Non-con 08/27/2014 1. Mild hydrocephalus, [...] 28 2014 1:21AM Referring Provider Line : [phone] ID: [id number] Ct Urinary Tract Abdomen Pelvis [...] Aug 28 2014 1:58AM Referring Provider Line: [phone] TE ID: [id number] ASSESSMENT & PLAN #1. [...] cannot drive, pt needs to report to [place] at [facility]. Elevated d-dimer - VQ scan low [...] Status: Full Code Tk Ramirez MD 08/29/2014 Tk Oliver M D - 08/28/2014 1:03 PM PST Progress Notes by Tk Ramirez MD at 08/28/14 1303 Author: Tk Ramirez MD Service: (none) Author Type: Physician Filed: 08/28/14 1312 Date of Service: 08/28/14 1303 Status: Addendum Patent Engineer: Tk Ramirez MD (Physician) Related Notes: Original Note by Tk Ramirez MD (Physician) filed at 08/28/[address] [facility] Service: Hospitalist Progress Note Hospital Day: LOS: 1 day Post-Op Day: * No surgery found * SUBJECTIVE Patient Summary: admission H and P Dr. Bello:"HISTORY OF PRESENT ILLNESSdiabetes arsenio litus type , hypertension, acid reflux, hypothyroidism. The patient had 2 episodes of seizur es, November 2000, treated in [facility]. Three weeks later had the second episode however no t on antiepileptic medications. The patient has left flank pain for a week and is currently on ciprofloxacin for urinary tract infection. She still has 3 more days of antibiotics left. The patient left [place] last night and was halting at [place]. She had epigastric pr essure localized without radiation to the left arm, jaw, intrascapular area. It felt similar to her acid reflux pain. She had nausea without vomiting. She took Tums and felt better, an d then slept. This morning they drove to [place] and in the afternoon they were at the [facility]. There she had told her that she had the same epigastric pressure with nausea and di d not feel well. Mild shortness of breath. This lasted for a few minutes. Subsequently she f elt better. They were heading towards [place] walking out of the [facility] holding her husbands h and when [...] lip biting, or tongue biting. EMS was c [employer] maria. Apparently the pulse was feeble per spouse. [...] 70 kg (154 lb 5.2 oz) (08/27 164) FiO2 : [40 %] 40 % (08/27 171) Physical Exam Constitutional: She is oriented to [...] 28 2014 1:21AM Referring Provider Line : [phone] ID: [id number] Ct Urinary Tract Abdomen Pelvis [...] Aug 28 2014 1:58AM Referring Provider Line: [phone] TE ID: [id number] ASSESSMENT & PLAN #1. [...] to cannot drive, needs to report to [place] at [facility]. Elevated d-dimer - VQ scan low [...] Full Code Tk Ramirez MD 08/28/2014 Ne Lee, PT - 08/28/2014 10:15 AM PST Therapy Progress Note by Ne Pozo, PT at 08/28/14 1015 Author: Ne Pozo PT Service: (none) Author Type: Physical Therapist Filed: 08/28/14 1121 Date of Service: 08/28/14 1015 Status: Signed Patent Engineer: Ne Pozo PT (Physical Therapist) 08/28/14 1015 [...] safety during I-ADL's/ADL's Prior Function Level of [place] Independent with ADLs;Independent with IADLs;Driving in community;Co [...] (call barker in hand and reviewed use) 08/28/14 1015 PT Last Visit PT Received On 08/28/14 PT Eval/Reassessment Date 08/28/14 Precautions Other Precautions fall risk Other Comments Comments Patient is 73 year female lives with supportive - normally drives- is total ly independent with self care- 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 Nurse Progress Note by Olga Ibarra RN at 08/28/14 0556 Author: Olga Ibarra RN Service: (none) Author Type: Registered Nurse Filed: 08/28/14 0603 Date of Service: 08/28/14 0556 Status: Signed Patent Engineer: Olga Ibarra RN (Registered Nurse) Patient arrived [...] Progress Notes by Opal Gore RPH at 08/28/14 0148 Author: Opal Gore RPH Service: (none) Author Type: Pharmacist Filed: 08/28/14 0148 Date of Service: 08/28/14147 Status: Signed Patent Engineer: Opal Gore [facility] (Pharmacist) Clinical Pharmacy Note: Renal Monitoring Cristina Donnelly 73 y.o. female Height: not charted Weight: 70 kg Serum Creatinine: 1.05 mg/dL Pharmacy dosing for renal function per Dr. Bello. Currently there are no medications needing to be adjusted. Pharmacy will continue to monito r for changes in medication orders and in renal function and adjust accordingly per P & T co mmittee. Opal Gore, PharmD 08/28/2014 1:48 AM docume nted in this encounter H&P Notes Shira Bello - 08/27/2014 9:49 PM PDTFormatting of this note might be different from th e original. H&P by Shira Bello MD at 08/27/142148 Author: Shira Bello MD Service: Hospitalist Author Type: Physician Filed: 08/28/14 2307 Date of Service: 08/27/142148 Status: Signed Patent Engineer: Shira Bello MD (Physician) [facility] Service: Hospitalist Admission History & Physical Date of Admission: 08/27/2014 Requesting Physician: , Emergency Department Reason for Admission: LOC , possible seizure , r/o syncope History Obtained From: patient, chart review, Quality of history: good CHIEF COMPLAINT: Chief Complaint Chief Complaint Patient presents with Loss of Consciousness HISTORY OF PRESENT ILLNESS The patient is a 73 y.o. female with significant past medical history of diabetes mellitus type , hypertension, acid reflux, hypothyroidism. The patient had 2 episodes of seizures, F ebruary 2000, treated in [facility]. Three weeks later had the second episode however not on antiepileptic medications. The patient has left flank pain for a week and is currently on ci profloxacin for urinary tract infection. She still has 3 more days of antibiotics left. The patient left [place], [place] last night and was halting at [place]. She had epigastric pr essure localized without radiation to the left arm, jaw, intrascapular area. It felt similar to her acid reflux pain. She had nausea without vomiting. She took Tums and felt better, an d then slept. This morning they drove to [place] and [place] she had told her that she had the same epigastric pressure with nausea and di d not feel well. Mild shortness of breath. This lasted for a few minutes. Subsequently she f elt better. They were heading [facility] [place] [facility] and when she [...] consulted to admit for seizure, third e pisode. REVIEW OF SYSTEMS Review of Systems CONSTITUTIONAL: No recent changes in weight or appetite. No fevers. Positive for chills. HEENT: She had a headache last night and this afternoon but now resolved. She denies any ph otophobia, diplopia, dysphagia, thrush, aspiration. She denies vertigo. NECK: No neck pain or neck stiffness. PULMONARY: She denies pleuritic chest pain. She had transient shortness of breath that is n ow resolved. No history of asthma. She denies any cough, hemoptysis, wheezing, or obstructiv e sleep apnea. CARDIOVASCULAR: No previous history of AR, congestive heart failure, irregular heart rhythm s, or syncope. GASTROINTESTINAL: Chronic constipation. Last bowel movement was today. History of hiatal he rnia and GERD. She had epigastric pressure yesterday and this afternoon which are now resolv ed. No abdominal pain or distention. No GI bleeding. GENITOURINARY: No dysuria, polyuria, or hematuria. She has a urinary tract infection on ant ibiotic, Cipro. MUSCULOSKELETAL: Bilateral lower extremities denies any pain, swelling, or redness. NEUROLOGIC: History of seizure like episode x2, three years ago. No strokes or TIA. ENDOCRINE: Diabetes mellitus and hypothyroidism. INTEGUMENTARY: No rash or decubitus ulcers. Past Medical History Diagnosis Date Hypertension Diabetes mellitus, type 2 Reflux Seizures UTI (lower urinary tract infection) NUIQSUT (hard of hearing) Hypothyroid Past Surgical History Procedure Laterality Date Unlisted procedure arthroscopy hip replacement, rt and left Hysterectomy Allergies Allergen Reactions Codeine Other (See Comments) unknown Morphine Other (See Comments) Unknown rxn Prior to Admission medications Medication Sig Start Date End Date Taking? Authorizing Provider THYROID PO Take by mouth. Yes Historical Provider Family History Problem Relation Age of Onset Diabetes Mother Stroke Mother Alcoholism Father Cancer Father History Social History Marital Status: Spouse Name: N/A Number of Children: 1 Years of Education: N/A Occupational History Not on file. Social History Main Topics Smoking status: Never Smoker Smokeless tobacco: Not on file Alcohol Use: No Drug Use: No Sexually Active: Not on file Other Topics Concern Not on file Social History Narrative Resident of [place]or, IADL, fall risk, full code. Last fall more than year ago. History Smoking status Never Smoker Smokeless tobacco Not on file History Alcohol Use No History Drug Use No PHYSICAL EXAM Vital Signs: BP 140/59 | Pulse 86 | Temp(Src) 96.3 F (35.7 C) (Bladder) | Resp 14 | Wt 70 kg (154 lb 5.2 oz) | SpO2 100% Physical Exam GENERAL: The patient is normal built and alert and oriented x3. Hard of hearing. She does n ot have a hearing aid at this time. Spouse at the bedside. HEENT: Pupils are equal and reactive to light. Extraocular muscles are intact. No nystagmus or diplopia. No facial asymmetry. Normal speech. No droop. Tongue is moist. No lip or tongu e biting noted. NECK: Supple. No JVD. No lymphadenopathy. LUNGS: Clear to auscultation bilaterally. No wheeze or rales. Respirations not labored. HEART: Regular rate and rhythm. No murmur. No gallop. No chest wall tenderness to palpation . ABDOMEN: Soft. Mild tenderness in the epigastrium present. Nondistended. No guarding. No ri gidity. Bowel sounds are heard normal. GENITOURINARY: Skaggs catheter in place. Clear straw colored urine draining well. BACK: No tenderness to palpation over the spine. Left CVA tenderness present. EXTREMITIES: Bilateral lower extremities with no signs of DVT, cellulitis, or ankle edema. SKIN: No rash or decubitus ulcers. PSYCHIATRIC: No delirium. NEUROLOGY : non focal, gait not tested. DATA Results for orders placed during the hospital encounter of 08/27/14 (from the past 24 hour( s)) POC CARDIAC TROPONIN Collection Time 08/27/14 4:57 PM Result Value Range POC CARDIAC TROPONIN 0.00 0.00 - 0.10 ng/mL POC ARTERIAL CG4+ Collection Time 08/27/14 5:12 PM Result Value Range pH, Art 7.324 (*) 7.350 - 7.450 POC PCO2 36 35 - 45 mmHg POC p02 74 (*) 80 - 105 mmHg POC LACTATE 4.4 (*) 0.36 - 1.25 mmol/L POC HCO3 19 (*) 22 - 26 mmol/L POC TCO2 20 (*) 23 - 27 mEq/L POC BASE DEFICIT 7 (*) 0.0 - 2.0 mmol/L POC S02 94 (*) 95 - 98 % POC FIO2 40 POC COMMENTS Tidal Volume = 400 POC CLINITEK 10 Collection Time 08/27/14 5:22 PM Result Value Range Color, UA YELLOW Clarity, UA CLEAR Glucose, UA NEGATIVE NEGATIVE mg/dL Bilirubin, UA NEGATIVE NEGATIVE Ketones, UA NEGATIVE NEGATIVE mg/dL Spec Grav, UA >1.029 1.001 - 1.035 Blood, UA TRACE (*) NEGATIVE pH, UA 5.0 4.6 - 8.0 Protein, UA 30 (*) NEGATIVE mg/dL Urobilinogen, UA 0.2 <1.1 mg/dL Nitrite, UA NEGATIVE NEGATIVE WBC, UA NEGATIVE NEGATIVE [facility] CARD PANEL W/O TRP (ED ONLY) Collection Time 08/27/14 5:42 PM Result Value Range WBC 7.5 3.8 - 11.0 K/uL RBC 4.08 3.70 - 5.10 M/uL HGB 12.8 11.3 - 15.5 g/dL HCT 36.1 34.0 - 46.0 % MCV 88.5 80.0 - 100.0 fl MCH 31.3 27.0 - 34.0 pg MCHC 35.4 32.0 - 35.5 g/dL RDW SD 40.7 37 - 53 fl PLT 326 150 - 400 K/uL MPV 7.8 DIFF TYPE AUTOMATED NEUTROPHILS 59.9 LYMPHOCYTES 29.6 MONOCYTES 7.9 EOSINOPHILS 1.7 BASOPHILS 0.9 NEUTROPHILS ABS 4.5 1.9 - 7.4 K/uL LYMPHOCYTES ABS 2.2 1.0 - 3.9 K/uL MONOCYTES ABS 0.6 0 - 0.8 K/uL EOSINOPHILS ABS 0.1 0 - 0.5 K/uL BASOPHILS ABS 0.1 0 - 0.1 K/uL SODIUM 137 135 - 143 mmol/L POTASSIUM 3.1 (*) 3.5 - 4.9 mmol/L CHLORIDE 104 99 - 109 mmol/L CO2 22 (*) 23 - 32 mmol/L ANION GAP AGAP 14 5 - 20 mmol/L GLUCOSE 131 (*) 65 - 99 mg/dL BUN 19 8 - 25 mg/dL CREATININE 1.05 (*) 0.50 - 1.00 mg/dL BUN/CREAT 19 CALCIUM 8.4 (*) 8.5 - 10.2 mg/dL TOTAL PROTEIN 6.6 6.3 - 8.2 g/dL Albumin 3.6 3.3 - 4.8 g/dL GLOBULIN 3.0 1.3 - 4.9 g/dL A/G 1.2 1.0 - 2.4 TBIL 0.6 0.1 - 1.5 mg/dL ALK PHOS 89 35 - 115 U/L AST 26 10 - 45 U/L ALT 33 10 - 65 U/L EGFR 47 (*) >60 mL/min/1.73m2 CPK 49 30 - 240 U/L INR 1.0 APTT 24 23 - 32 seconds MMB 1.6 0.5 - 3.6 ng/mL CK-MB Index 3.3 D-DIMER, QUANTITATIVE Collection Time 08/27/14 5:42 PM Result Value Range D DIMER, QUANTITATIVE 0.77 (*) 0.19 - 0.50 mg/L FEU BRAIN NATRIURETIC PEPTIDE Collection Time 08/27/14 5:42 PM Result Value Range BRAIN NATRIURETIC PEPTIDE 9.9 0 - 100 pg/mL ETHANOL Collection Time 08/27/14 5:42 PM Result Value Range ALCOHOL,ETHYL <10 <10 mg/dL MAGNESIUM Collection Time 08/27/14 5:42 PM Result Value Range MAGNESIUM 1.9 1.7 - 2.4 mg/dL TSH Collection Time 08/27/14 5:42 PM Result Value Range TSH 0.87 0.45 - 5.10 uIU/mL C-REACTIVE PROTEIN Collection Time 08/27/14 5:42 PM Result Value Range CRP <0.3 <0.5 mg/dL ED URINE SCREEN Collection Time 08/27/14 5:51 PM Result Value Range Color, UA see results Clarity, UA Glucose, UA Bilirubin, UA Ketones, UA Spec Grav, UA Blood, UA pH, UA 5 - 7.5 Protein, UA Urobilinogen, UA 0.2 - 1 Leukocytes, UA Nitrite, UA C DIFF TOXIN BY PCR (TAT 3HR IN HOUSE) Collection Time 08/27/14 6:30 PM Result Value Range Toxigenic C Difficile NEGATIVE NEGATIVE 027 NAP1 BI 027 NAP1 BI PRESUMPTIVE NEGATIVE ECG from 1649: Sinus rhythm at 85 bpm. IN, QRS, QT, and axis are normal. No ST segment elev ations or depression. No significant Q waves. Good R wave progression through the precordial leads. Meets No STEMI criteria for ischemia. No old ECG for comparison. This study has bee n independently viewed and interpreted by . XR Chest AP Portable IMPRESSION: 1. Hyperinflated supine trauma film, with some asymmetric probable atelectasis in the left lung No evidence of mass effect upon or enlargement of the mediastinum 2. Endotracheal tube in radiographically appropriate position. Head Non-Con IMPRESSION: 1. Mild hydrocephalus, with slight asymmetric ectasia of the left lateral ventricle-without positive mass effect 2. White matter disease, without convincing evidence of acute ischemia or hemorrhage No evidence of posttraumatic changes. LEM LIST Principal Problem: Seizure Active Problems: Epigastric abdominal pain Lactate blood increase Hypokalemia ARF (acute renal failure) Left flank pain Pyelonephritis, acute Diabetes mellitus, type 2 Hypertension Hypothyroid GERD (gastroesophageal reflux disease) D-dimer, elevated ASSESSMENT & PLAN 1. Acute loss of consciousness associated with eye rolling, urinary incontinence, foaming i n the mouth. Per spouse similar to her prior 2 episodes. Most likely this is seizure. Had tr ansient postictal state, required intubation for airway protection transiently. Now extubate d and oxygenating well. Vital signs are stable. Will admit for observation. Dr. Guerrero, neur ology teacher education director, consulted by Dr. Kennedy. He recommended Keppra 500 mg IV q.12h, MRI of the b rain, and EEG. Due to renal insufficiency, MRI of the brain is being done without contrast. An EEG is pending. The patient does not do drugs, therefore urine drug screen not ordered. S eizure precautions, aspiration, fall precautions ordered. Ativan p.r.n. seizure ordered. Other differential to consider is syncope and collapse although less likely. The patient robertson d reported epigastric pressure intermittently since last night. Although she feels similar t o her heartburn and had resolution with Tums, need to rule out acute coronary syndrome and s yncope. Ordered continuous telemetry monitoring, serial cardiac enzymes, echocardiogram to e valuate for wall motion abnormality. Risk factors for acute coronary syndrome are age, diabe manuel, and hypertension. Prior to discharge, the patient should get stress test. Not ordering at this time as she will get V/Q scan tomorrow. 2. Elevated D-dimer, most likely secondary to the seizure. V/Q scan cannot be done at this time due to lack of isotope. Will order it for tomorrow morning. Suspicion for PE is low. Ve nous Dopplers ordered and pending. 3. Lactic acid level is elevated with mild metabolic acidosis, most likely secondary to sei zure episode. Repeat lactate level in a.m. C-reactive protein is normal, less likely sepsis. 4. Recent urinary tract infection and left flank pain for the past week, possible this is a cute pyelonephritis. The patient's urinalysis is normal today as it is being treated with an tibiotics and ciprofloxacin. Cipro can reduce the seizure threshold, therefore discontinued and ordered Rocephin. The patient should complete total of 2 [address] of antibiotics. Renal CT ordered to rule out kidney stones, obstruction, or hydronephrosis given she has acute renal failure. CPK level is normal, therefore less likely rhabdomyolysis. 5. Acute renal failure. The patient denies prior history of renal insufficiency. Possible prerenal. Ordered IV hydration, Avoid nephrotoxic medications and hypotension and NSAIDs. Mo nitor daily renal function. If worsening, consult nephrology p.r.n. Pending renal CT to rule out obstructive uropathy although less likely. 6. Gastroesophageal reflux disease and hiatal hernia with intermittent epigastric pressure and nausea. Ordered Protonix IV every day. Rule out ACS. 7. Diabetes mellitus type 2. Controlled hyperglycemia. Ordered low-dose insulin sliding sca le. Adjust as needed. 8. Hypothyroidism. Resume leveothyroxine when home medication list is completed. TSH level ordered. 9. Hypertension. Controlled. Resume home medications when medicine reconciliation is comple joesph. 10. Hypokalemia. Replace IV and magnesium level is normal. Addendum: 1:30am MRI brain wo contrast and MRA head Status: Preliminary result Study Result IMPRESSION: Prominent nonspecific white matter change. No acute intracranial process identified. No significant abnormality identified on intracranial MR angiography. Read by Ryland Singer MD on Aug 28 2014 1:58AM US Lower Extremity - Venous Bilateral IMPRESSION: Negative for deep venous thrombosis in bilateral lower extremities. RADIA Electronically signed by García Ferrera MD on Aug 28 2014 1:21AM Referring Provider Line: [phone] ID: [id number] Disposition: observation Code Status: Full code Primary Care Physician: PER PT NONE SHIRA BELLO MD 08/27/2014 documented in this encou nter Procedure Notes Conversion Transaction, Provider Unknown - 08/27/2014 11:00 PM PDTFormatting of this note m ight be different from the original. Procedures by Suha Rodriguez RRT at 08/27/142299 Author: Suha Rodriguez RRT Service: Neurology Author Type: computerized mill mill recorder Filed: 08/27/142299 Date of Service: 08/27/142299 Status: Signed Patent Engineer: Suha Rodriguez RRT (computerized mill mill recorder) Procedure Orders: 1. EEG [[id number]] ordered by Freddy Kennedy MD at 08/27/142101 EEG REPORT Patient: Cristina Donnelly ID: [id number] : 1940 Age: [age] Gender: Female Height: Weight: Physician: Yolanda REEDER Management Development Specialist: Suha Referring Physician: Nohemi REEDER Recording Date: 08/27/2014 Time: 10:04 PM Report Date: 08/27/2014 Recorded Time: 20.3 min. Medications: None. History: EEG on patient who [place], got up to leave and collap sed History of previous seizure. Comments: Pt is awake, little confused, PS was performed ROOM 03 ED GENERAL DESCRIPTION: This was a 19 channel EEG recording with [employer] 10/20 electrod e placements. EEG Description: Background: Occipital rhythm: Present Frequency: 8 8.5 Hz Voltage: Medium Organization: Fair Reactivity to eye opening/closure: Fair. Other background activity: Generalized irregular theta and delta activity. Drowsiness: Present. Sleep: Absent. Activation: Hyperventilation: Not done. Photic Stimulation: Done No abnormal response. EEG Diagnosis: This EEG is suggestive of generalized nonspecific cerebral dysfunction. Clin ical correlation is recommended. Thank you for the courtesy of this referral. Sincerely, Yolanda REEDER docume nted in this encounter Consult Notes Bessie Guerrero MD - 08/28/2014 9:52 AM PSTFormatting of this note might be different fro m the original. Consults by Bessie Guerrero MD at 08/28/14 0952 Author: Bessie Guerrero MD Service: Neurology Author Type: Physician Filed: 08/28/14 1037 Date of Service: 08/28/14951 Status: Signed Patent Engineer: Bessie Guerrero MD (Physician) Consult Orders: 1. Consult to Neurology [[id number]] ordered by Shira Bello MD at 08/27/14 9794 Subjective: Cristina Donnelly is a 73 y.o. left handed female on whom I have been asked to consult for ev aluation and treatment of a neurologic deficit. She had a GTC seizure in Nov, 2010 and another seizure in Feb, 2011. Was treated with Ifeanyi tin then another AED until May, and this was stopped. She also was recently diagnose d with UTI, she is still on ciprofloxacin. Yesterday, were in the casino, felt epigastric pressure, nausea and headache. Were then fernando alfonso out of the casino holding her husbands hand when she had sudden loss of consciousness. caught her and lowered her to the floor. He thought it was her seizure and laid her on her side. Her eyes were rolling up and she was foaming at the mouth. She also wet herself . However, no convulsion as before. She was not pale moreover. They checked her pulse and wa s weak per report. Her breathing was shallow as well. EMS was called and patient was intubated in the field for airway protection. She is doing well at this time, has no recollection of the event. She was hypokalemic with ARF and report of hypoglycemia. Usually she feels weak with low bl ood sugar and yesterday symptoms were different from her usual hypoglycemia related symptoms . Review of Systems No fever, blurred or double vision, slurred speech, dysphagia, weakness, numbness, CP, SOB, D or C. PMH: Patient Active Problem List Diagnosis Date Noted Seizure 08/27/2014 Epigastric abdominal pain 08/27/2014 Lactate blood increase 08/27/2014 Hypokalemia 08/27/2014 ARF (acute renal failure) 08/27/2014 Left flank pain 08/27/2014 Pyelonephritis, acute 08/27/2014 GERD (gastroesophageal reflux disease) 08/27/2014 D-dimer, elevated 08/27/2014 Diabetes mellitus, type 2 Hypertension Hypothyroid Past Medical History Diagnosis Date Hypertension Diabetes mellitus, type 2 Reflux Seizures UTI (lower urinary tract infection) NUIQSUT (hard of hearing) Hypothyroid Past Surgical History Procedure Laterality Date Unlisted procedure arthroscopy hip replacement, rt and left Hysterectomy Allergy: Allergies Allergen Reactions Codeine Other (See Comments) unknown Morphine Other (See Comments) Unknown rxn Medications: Home medications: Prior to Admission medications Medication Sig Start Date End Date Taking? Authorizing Provider levothyroxine (SYNTHROID) 100 MCG tablet Take 95 mcg by mouth every morning before breakfas t. Yes Historical Provider THYROID PO Take by mouth. Yes Historical Provider Scheduled Meds: aspirin 324 mg Oral Once aspirin 81 mg Oral Daily with breakfast atorvastatin 20 mg Oral Nightly heparin (porcine) 5,000 Units Subcutaneous Q8H insulin aspart 0-3 Units Subcutaneous Nightly insulin aspart 0-6 Units Subcutaneous TID AC levETIRAcetam 500 mg Intravenous Q12H pantoprazole 40 mg Intravenous QAM AC FHx: Family History Problem Relation Age of Onset Diabetes Mother Stroke Mother Alcoholism Father Cancer Father SHx: History Social History Marital Status: Spouse Name: N/A Number of Children: 1 Years of Education: N/A Occupational History Not on file. Social History Main Topics Smoking status: Never Smoker Smokeless tobacco: Not on file Alcohol Use: No Drug Use: No Sexually Active: Not on file Other Topics Concern Not on file Social History Narrative Resident of [place], IADL, fall risk, full code. Last fall more than year ago. Objective: Vitals: BP 109/58 | Pulse 73 | Temp(Src) 98 F (36.7 C) (Oral) | Resp 16 | Wt 70 kg (154 lb 5.2 oz) | SpO2 95% | ? No General: Well developed, well nourished, in no acute distress Neck: Supple. Lungs: Clear bilaterally to A & P Heart: Regular rate and rhythm, S1, S2 Pulses: Normal in all 4 extremities Detailed Neurologic Exam: Speech: Is normal; fluent and spontaneous with normal comprehension Cognition: The patient is oriented to person, place, and time. Cranial Nerves: At this time, the pupils are equal, round, and reactive to light. Visual fi elds are full to finger confrontation. Extraocular movements are intact. Trigeminal sensatio n is intact and the muscles of mastication are normal. The face is symmetric. Hearing is sym metric bilaterally to fingers rubbing. The palate elevates in the midline. Voice is normal. Shoulder shrug is normal. The tongue has normal motion without fasciculations. Coordination: Normal finger to nose. Gait: Able to stand by herself and do few steps using walker. Observation: No asymmetry, no atrophy, and no involuntary movements noted. Tone: Normal muscle tone. Strength: Strength is 5/5 in the upper and lower limbs. Vibratory Sensation: Normal vibratory sensation in upper and lower extremities. Light Touch: Normal light touch sensation in upper and lower extremities. DTR's: Deep tendon reflexes in the upper and lower extremities are normal bilaterally. Labs Lab Results Component Value Date WBC 12.0* 08/28/2014 HGB 12.8 08/28/2014 HCT 36.0 08/28/2014 MCV 88.8 08/28/2014 PLT 299 08/28/2014 Lab Results Component Value Date CREATININE 0.78 08/28/2014 BUN 14 08/28/2014 NA 141 08/28/2014 K 3.3* 08/28/2014 CL 107 08/28/2014 CO2 25 08/28/[address]: 1. Mild hydrocephalus, with slight asymmetric ectasia of the left lateral ventricle-without positive mass effect 2. White matter disease, without convincing evidence of acute ischemia or hemorrhage. No ev idence of posttraumatic changes. Brain MRI and MRA w/o: Prominent nonspecific white matter change. No acute intracranial process identified. No sig nificant abnormality identified on intracranial MR angiography. EKG NSR. EEG: Generalized nonspecific cerebral dysfunction. Assessment: This patient was admitted to the hospital with: 1- Spells of loss of consciousness in patient w/o untreated seizure disorder and hypokalemi a. 2- HTN, DM, hypothyroidism. Possible seizure versus cardiac etiology as patient shows no convulsion and she was hypokal emic. Incontinence is very nonspecific and can be seen in any loss of coconsciousness (such as sy ncope). I reviewed the brain MRI and agree with radiologist interpretation (Diffusely prominent CSF spaces in keeping with the patient's age). Extensive WMD with ventriculomegaly and atrophy with no flow void on T2. Most likely generalized atrophy. Plan: 1- Agree with admission to telemetry bed with good hydration. 2- Vital signs and neurocheck per routine. 3- Temperature every 4 hours and treat any temperature greater than 100 (37.8). 4- Glucose finger stick every 6 hours if patient is NPO or AC and HS if patient has a diet ordered. Treat aggressively when blood glucose concentrations is >140 to 185 mg/dL. 5- Treat with O2 per NC if SpO2 is less than 92%. 6- Avoid hypotension and keep MAP greater than 80-90. 7- For possible seizure, agree with Keppra 500 mg bid. Consider thiamine 100 mg daily. 8- The patient was instructed not to drive a vehicle or vessel of any kind, swim, bathe josefina ne, boat, scuba, work on heights, operate heavy machines or cook on open fire for six (6) mo nths from any event of loss of consciousness, altered awareness or loss of body control. 9- Caridiac etiology need to be ruled out, will defer to primary team. Consider intermediate accountant H olter if felt to be indicated. 10- She is on ASA and statin. 11- General care including GI and DVT prophylaxis and risk factors modification per primary team. Thank you for allowing us to participate in your patient care. Please call with questions. Try to avoid flouroquinolones as it may reduce seizure threshold. Patient should be reported to local DMV office in regard to seizure and driving. I spent more than 50 minutes managing this case. Patient to follow with PCP in 1 week and with her neurologist in 3-4 weeks. documented in this e ncounter ED Notes Conversion Transaction, Provider Unknown - 08/27/2014 11:25 PM PDTFormatting of this note m ight be different from the original. ED Notes by Camille Millard RN at 08/27/142324 Author: Camille Millard RN Service: (none) Author Type: Registered Nurse Filed: 08/27/142325 Date of Service: 08/27/142324 Status: Signed Patent Engineer: Camille Millard RN (Registered Nurse) Report given to Elizabeth Millard RN 08/27/142325 onver laurie Transaction, Provider Unknown - 08/27/2014 10:10 PM PDT ED Notes by Camille Millard RN at 08/27/142209 Author: Camille Millard RN Service: (none) Author Type: Registered Nurse Filed: 08/27/142210 Date of Service: 08/27/142209 Status: Signed Patent Engineer: Camille Millard RN (Registered Nurse) EGG getting done now Camille Millard RN 08/27/142210 onver laurie Transaction, Provider Unknown - 08/27/2014 9:55 PM PDT ED Notes by Arely Jeong RN at 08/27/142154 Author: Arely Jeong RN Service: (none) Author Type: Registered Nurse Filed: 08/27/142154 Date of Service: 08/27/142154 Status: Signed Patent Engineer: Arely Jeong RN (Registered Nurse) HOLD KEPPRA UNTIL EEG IS FINISHED NOW Arely Jeong RN 08/27/142154 onver laurie Transaction, Provider Unknown - 08/27/2014 9:47 PM PDT ED Notes by Arely Jeong RN at 08/27/142146 Author: Arely Jeong RN Service: (none) Author Type: Registered Nurse Filed: 08/27/142148 Date of Service: 08/27/142146 Status: Signed Patent Engineer: Arely Jeong RN (Registered Nurse) Dr Fine states "do the EEG now and when its almost finished start the Keppra and then send her to MRI". The pt is talking and disoriented. She is NUIQSUT. She is taken off the mask and di d not desaturate off o2 below 90% in 5 minutes. Placed on 2l/nc for suport. agricultural technician (who wa s called in and present) Arely Jeong RN 08/27/142148 onver laurie Transaction, Provider Unknown - 08/27/2014 9:16 PM PDT ED Notes by Camille Millard RN at 08/27/142115 Author: Camille Millard RN Service: (none) Author Type: Registered Nurse Filed: 08/27/142116 Date of Service: 08/27/142115 Status: Signed Patent Engineer: Camille Millard RN (Registered Nurse) Dr Bello at pt bs Camille Millard RN 08/27/142116 onver laurie Transaction, Provider Unknown - 08/27/2014 9:03 PM PDT ED Notes by Odalis Pack at 08/27/142102 Author: Odalis Pack Service: (none) Author Type: Management Development Specialist Filed: 08/27/142103 Date of Service: 08/27/142102 Status: Signed Patent Engineer: Odalis Pack (Management Development Specialist) computerized mill mill recorder called in. Odalis Pack 08/27/142103 onver laurie Transaction, Provider Unknown - 08/27/2014 8:45 PM PDT ED Notes by Camille Millard RN at 08/27/142044 Author: Camille Millard RN Service: (none) Author Type: Registered Nurse Filed: 08/27/142044 Date of Service: 08/27/142044 Status: Signed Patent Engineer: Camille Millard RN (Registered Nurse) Pt quietly sleeping. Camille Millard RN 08/27/142044 onver laurie Transaction, Provider Unknown - 08/27/2014 7:53 PM PDT ED Notes by Camille Millard RN at 08/27/141952 Author: Camille Millard RN Service: (none) Author Type: Registered Nurse Filed: 08/27/141952 Date of Service: 08/27/141952 Status: Signed Patent Engineer: Camille Millard RN (Registered Nurse) sats in 99% Simple mask Camille Millard RN 08/27/141952 onver laurie Transaction, Provider Unknown - 08/27/2014 7:51 PM PDT ED Notes by Camille Millard RN at 08/27/141950 Author: Camille Millard RN Service: (none) Author Type: Registered Nurse Filed: 08/27/141951 Date of Service: 08/27/141950 Status: Signed Patent Engineer: Camille Millard RN (Registered Nurse) Pt states "I remember now what happened. I remember being in the casino and playing the [employer] games." Spouse at pt bs Camille Millard RN 08/27/141951 onver laurie Transaction, Provider Unknown - 08/27/2014 7:50 PM PDT ED Notes by Camille Millard RN at 08/27/141949 Author: Camille Millard RN Service: (none) Author Type: Registered Nurse Filed: 08/27/142026 Date of Service: 08/27/141949 Status: Signed Patent Engineer: Camille Millard RN (Registered Nurse) Soft restraints removed Camille Millard RN 08/27/142026 onver laurie Transaction, Provider Unknown - 08/27/2014 7:48 PM PDT ED Notes by Camille Millard RN at 08/27/141947 Author: Camille Millard RN Service: (none) Author Type: Registered Nurse Filed: 08/27/141948 Date of Service: 08/27/141947 Status: Signed Patent Engineer: Camille Millard RN (Registered Nurse) 1944 RT extubate pt. Pt alert to spouse. Unknown where she was at. sats 99% simple mask Camille Millard RN 08/27/141948 onver laurie Transaction, Provider Unknown - 08/27/2014 7:40 PM PDT ED Notes by Camille Millard RN at 08/27/141939 Author: Camille Millard RN Service: (none) Author Type: Registered Nurse Filed: 08/27/141939 Date of Service: 08/27/141939 Status: Signed Patent Engineer: Camille Millard RN (Registered Nurse) Pt in 99%ra. Versed was paused and RT will try to extubate pt. Camille Millard RN 08/27/141939 onver laurie Transaction, Provider Unknown - 08/27/2014 7:36 PM PDT ED Notes by Camille Millard RN at 08/27/141935 Author: Camille Millard RN Service: (none) Author Type: Registered Nurse Filed: 08/27/141935 Date of Service: 08/27/141935 Status: Signed Patent Engineer: Camille Millard RN (Registered Nurse) RT at pt bs Camille Millard RN 08/27/141935 onver laurie Transaction, Provider Unknown - 08/27/2014 7:04 PM PDT ED Notes by Camille Millard RN at 08/27/141903 Author: Camille Millard RN Service: (none) Author Type: Registered Nurse Filed: 08/27/141905 Date of Service: 08/27/141903 Status: Signed Patent Engineer: Camille Millard RN (Registered Nurse) Pt walking up trying to pull ETT. RN notified . and ender LANE at pt bs. MD asking pt if she wanted ETT to be removed pt move her head up and down. RT was called to assisted. Bolus of versed 4mg was give to help pt calm down. Soft restraints were placed. Camille Millard RN 08/27/141905 onver laurie Transaction, Provider Unknown - 08/27/2014 6:41 PM PDT ED Notes by Georgette Vines RN at 08/27/141840 Author: Georgette Vines RN Service: (none) Author Type: Registered Nurse Filed: 08/27/141840 Date of Service: 08/27/141840 Status: Signed Patent Engineer: Georgette Vines RN (Registered Nurse) Pt incont of loose stool and threw up, linens changed, suction to bs, yash care performed Georgette Vines RN 08/27/141840 onver laurie Transaction, Provider Unknown - 08/27/2014 6:38 PM PDT ED Notes by Camille Millard RN at 08/27/141837 Author: Camille Millard RN Service: (none) Author Type: Registered Nurse Filed: 08/27/141839 Date of Service: 08/27/141837 Status: Signed Patent Engineer: Camille Millard RN (Registered Nurse) Assumed pt care at 1825. Pt back from CT. One episode of loss stool and emesis. RN and tr brittany RN got pt clean. Sent stool to lab. Pt tolerated well. Spouse at pt bs Camille Millard RN 08/27/141839 onver laurie Transaction, Provider Unknown - 08/27/2014 5:58 PM PDT ED Notes by Georgette Vines RN at 08/27/141757 Author: Georgette Vines RN Service: (none) Author Type: Registered Nurse Filed: 08/27/141758 Date of Service: 08/27/141757 Status: Signed Patent Engineer: Georgette Vines RN (Registered Nurse) Per spouse, pt has a hx of sz, states had what appeared to be a seizure. When ambulance ca me, pt was not maintaining airway and was intubated on the scene. Georgette Vines RN 08/27/141758 onver laurie Transaction, Provider Unknown - 08/27/2014 5:49 PM PDT ED Notes by Georgette Vines RN at 08/27/141748 Author: Georgette Vines RN Service: (none) Author Type: Registered Nurse Filed: 08/27/141748 Date of Service: 08/27/141748 Status: Signed Patent Engineer: Georgette Vines RN (Registered Nurse) Pt moving around, opening eyes Georgette Vines RN 08/27/14 1749 hFreddy mondragon MD - 08/27/2014 4:47 PM PDTFormatting of this note might be different from the or iginal. ED Provider Notes by Freddy Kennedy MD at 08/27/141646 Author: Freddy Kennedy MD Service: (none) Author Type: Physician Filed: 08/27/142138 Date of Service: 08/27/141646 Status: Signed Patent Engineer: Freddy Kennedy MD (Physician) Procedure Orders: 1. Critical Care [[id number]] ordered by Freddy Kennedy MD at 08/27/142137 [facility] Department of Emergency Medicine History of Present Illness Patient Identification Cristina Donnelly is a 73 y.o. female. Patient information was obtained from EMS personnel. History/Exam limitations: mental status. Patient presented to the Emergency Department Ambulance Room:12/27 Chief Complaint Chief Complaint Patient presents with Loss of Consciousness 73 yo female with syncope and collapse of the casino just prior to arrival. According to E MS the patient got up from where she was playing and she collapsed. She did not wake up. W hen the got there her GCS was a 4 and she was not maintained in a protected airway so the de cision to intubate her using rapid sequence intubation was initiated. Since that time she h as done well on the endotracheal tube. Symmetric breath sounds and good oxygenation. She h as a known history of diabetes and thyroid disease. Symptoms are described as severe. No k nown aggravating or alleviating factors. Primary Care Doctor: PER PT NONE Past Medical History Diagnosis Date Hypertension Diabetes mellitus, type 2 Reflux Seizures Past Surgical History Procedure Laterality Date Unlisted procedure arthroscopy hip replacement, rt and left Hysterectomy Prior to Admission medications Not on File Allergies Allergen Reactions Codeine Other (See Comments) unknown Morphine Other (See Comments) Unknown rxn History Social History Marital Status: Spouse Name: N/A Number of Children: N/A Years of Education: N/A Occupational History Not on file. Social History Main Topics Smoking status: Never Smoker Smokeless tobacco: Not on file Alcohol Use: No Drug Use: Not on file Sexually Active: Not on file Other Topics Concern Not on file Social History Narrative History reviewed. No pertinent family history. Review of Systems Positive for: Syncope and collapse, respiratory failure Limited secondary to mental status No other complaints. See HPI for further relevant details. All systems otherwise negative, except as recorded above and as recorded in the HPI. Physical Exam Filed Vitals: 08/27/14 1910 08/27/14 1949 08/27/14201508/27/14 2044 BP: 156/70 163/78 136/85 140/59 Pulse: 71 82 82 86 Temp: TempSrc: Resp: 16 14 Weight: SpO2: 100% 99% 96% 100% INTERPRETATION OF VITALS Pulse Oximetry interpretation: Normal Otherwise normal PHYSICAL EXAM Appearance: Nonresponsive. Intubated. Head: Normal external exam. Eyes: EOMI, PERRL, no scleral icterus. ENT: Normal external ENT inspection. No obvious intraoral lesions. Endotracheal tube in place. Neck: Supple. FROM. No crepitus. CVS: Normal heart rate and rhythm. Heart sounds normal. Pulses normal. Respiratory: Symmetric breath sounds. No wheezing, rales, or rhonchi. Abdomen: Soft and nontender. No rebound or guarding. Genitourinary: Deferred. Back: No obvious deformities.. Skin: Skin warm and dry. Extremities: No deformity. Neuro: Unresponsive. Medical Decision Making and Emergency Department Course ED Department Course: 4:47 PM Cristina Donnelly is a 73 y.o. female who presents with a chief complaint of syncope and brandon apse. Differential diagnosis includes stroke, heart attack, PT, hydration, other. We will obtain routine screening labs, EKG, chest x-ray, CT scan of the head. Will monitor closely and reevaluate.. 5:30 PM Patient's is here. He is given us more history. He states that she stated that sh vera was feeling unwell and then made the decision to leave the casino. She states it is a got up and walking she was feeling a little bit better. He then felt that she was feeling wors e. She started going to the ground so he caught her and lowered her to the floor. He state s that she is spitting at the mouth and her eyes were rolled back in her head. She lost con tinence of her urine. He states she had a similar episode about 3 years ago when she had a seizure. The were unable to determine the etiology of her seizures. He states that otherwi se she has been doing well. She had a remote history of UTI and finished antibiotic therapy for that. Patient now going to CT. D-dimer is slightly elevated. Unfortunately renal function is no t good enough to obtain a CT scan with contrast. We do not currently have any isotope for a VQ scan either. I doubt that she had a significantly large PE to cause her to have a synco pal episode with normal hemodynamics status. Head CT negative. 7:47 PM Patient had been doing well. She is past her weaning trial with respiratory therapy and robertson s been extubated. We will continue to monitor closely. 8:38 PM Patient continues to do well. She has been extubated for an hour now and she is awake aler t and oriented. No focal deficits. I do feel that she warrants admission to the hospital o vernight for evaluation as well as VQ scan. We will contact the hospitalist for admission. 8:53 PM Discussed the case with Dr. Bello (hospitalist) who agrees to see the patient for admission . She requests neurology consultation and ultrasound of the bilateral lower extremities. 9:02 PM Discussed the case with Dr. Guerrero (neurology) who recommends initiation of antiepileptics such as Keppra. He also requested EEG and MRI of the brain with and without contrast. Records Reviewed Nursing notes. Ambulance run sheet. Laboratory Evaluation Results Procedure Component Value Ref Range Date/Time Culture, Stool (with Shiga Toxin) [[id number]] Collected: 08/27/14 1830 Order Status: Sent Updated: 08/27/142117 Specimen Information: Stool / Stool Cardiac Panel [[id number]] (Abnormal) Collected: 08/27/14 1742 Order Status: Completed Updated: 08/27/141949 WBC 7.5 3.8 - 11.0 K/uL RBC 4.08 3.70 - 5.10 M/uL HGB 12.8 11.3 - 15.5 g/dL HCT 36.1 34.0 - 46.0 % MCV 88.5 80.0 - 100.0 fl MCH 31.3 27.0 - 34.0 pg MCHC 35.4 32.0 - 35.5 g/dL RDW SD 40.7 37 - 53 fl PLT 326 150 - 400 K/uL MPV 7.8 fl DIFF TYPE AUTOMATED NEUTROPHILS 59.9 % LYMPHOCYTES 29.6 % MONOCYTES 7.9 % EOSINOPHILS 1.7 % BASOPHILS 0.9 % NEUTROPHILS ABS 4.5 1.9 - 7.4 K/uL LYMPHOCYTES ABS 2.2 1.0 - 3.9 K/uL MONOCYTES ABS 0.6 0 - 0.8 K/uL EOSINOPHILS ABS 0.1 0 - 0.5 K/uL BASOPHILS ABS 0.1 0 - 0.1 K/uL SODIUM 137 135 - 143 mmol/L POTASSIUM 3.1 (L) 3.5 - 4.9 mmol/L CHLORIDE 104 99 - 109 mmol/L CO2 22 (L) 23 - 32 mmol/L ANION GAP AGAP 14 5 - 20 mmol/L GLUCOSE 131 (H) 65 - 99 mg/dL BUN 19 8 - 25 mg/dL CREATININE 1.05 (H) 0.50 - 1.00 mg/dL BUN/CREAT 19 CALCIUM 8.4 (L) 8.5 - 10.2 mg/dL TOTAL PROTEIN 6.6 6.3 - 8.2 g/dL Albumin 3.6 3.3 - 4.8 g/dL GLOBULIN 3.0 1.3 - 4.9 g/dL A/G 1.2 1.0 - 2.4 TBIL 0.6 0.1 - 1.5 mg/dL ALK PHOS 89 35 - 115 U/L AST 26 10 - 45 U/L ALT 33 10 - 65 U/L EGFR 47 (L) >60 mL/min/1.73m2 CPK 49 30 - 240 U/L INR 1.0 APTT 24 23 - 32 seconds MMB 1.6 0.5 - 3.6 ng/mL CK-MB Index 3.3 C diff toxin by PCR (TAT 3 hr in house) [[id number]] Collected: 08/27/14 1830 Order Status: Completed Updated: 08/27/14 193 Specimen Information: Stool / Stool Toxigenic C Difficile NEGATIVE NEGATIVE 027 NAP1 BI 027 NAP1 BI PRESUMPTIVE NEGATIVE Blood alcohol level (ethanol) [[id number]] Collected: 08/27/141741 Order Status: Completed Updated: 08/27/14 1848 ALCOHOL,ETHYL <10 <10 mg/dL BNP [[id number]] Collected: 11/01/14 1742 Order Status: Completed Updated: 08/27/14 1814 Specimen Information: Blood BRAIN NATRIURETIC PEPTIDE 9.9 0 - 100 pg/mL D-dimer, quantitative [[id number]] (Abnormal) Collected: 08/27/14 1742 Order Status: Completed Updated: 08/27/14 1805 Specimen Information: Blood D DIMER, QUANTITATIVE 0.77 (H) 0.19 - 0.50 mg/L FEU POC clinitek 10 [[id number]] (Abnormal) Collected: 08/27/14 1722 Order Status: Completed Updated: 08/27/14 1726 Color, UA YELLOW Clarity, UA CLEAR Glucose, UA NEGATIVE NEGATIVE mg/dL Bilirubin, UA NEGATIVE NEGATIVE Ketones, UA NEGATIVE NEGATIVE mg/dL Spec Grav, UA >1.029 1.001 - 1.035 Blood, UA TRACE (A) NEGATIVE pH, UA 5.0 4.6 - 8.0 Protein, UA 30 (A) NEGATIVE mg/dL Urobilinogen, UA 0.2 <1.1 mg/dL Nitrite, UA NEGATIVE NEGATIVE WBC, UA NEGATIVE NEGATIVE POC cardiac troponin [[id number]] Collected: 08/27/14 1657 Order Status: Completed Updated: 08/27/14 1711 POC CARDIAC TROPONIN 0.00 0.00 - 0.10 ng/mL Lab Interpretation I have reviewed lab results from the emergency department workup and abnormal results have been posted to the chart. Pertinent positive and negative findings have been addressed appr opriately. Radiology and EKG Evaluation Imaging Results CT Head Non-Con (Final result) Result time: 08/27/14 18:33:59 Final result by Rad Results In [place] (08/27/14 18:33:59) Impression: 1. Mild hydrocephalus, with slight asymmetric ectasia of the left lateral ventricle-without positive mass effect 2. White matter disease, without convincing evidence of acute ischemia or hemorrhage No evidence of posttraumatic changes. Narrative: HISTORY:trauma, demographics unknown. TECHNIQUE: Axial noncontrast head CT. Prior examination: None. FINDINGS: Bleach Boiler Packer notable for midline endotracheal tube and enteric [...] especia lly to the left of midline. XR Chest AP Portable (Final result) Result time: 08/27/14 17:15:06 Final result by Rad Results In Dileep (08/27/14 17:12:01) Impression: 1. Hyperinflated supine trauma film, with some asymmetric probable atelectasis in the left lung No evidence of mass effect upon or enlargement of the mediastinum 2. Endotracheal tube in radiographically appropriate position. Narrative: HISTORY: trauma. Demographics unknown TECHNIQUE: 1. [...] There are clips in the gallbladder fossa ECG from 1649: Sinus rhythm at 85 bpm. IN, QRS, QT, and axis are normal. No ST segment elev ations or depression. No significant Q waves. Good R wave progression through the precordial leads. Meets No STEMI criteria for ischemia. No old ECG for comparison. This study has bee n independently viewed and interpreted by me. ED Diagnoses Final diagnoses Syncope and collapse Seizure Acute respiratory failure Renal insufficiency Elevated d-dimer Disposition: ED Disposition Admit/Observation Bed request special needs: None Diagnosis?: syncope, collapse, possible seizure, elevated ddimer Follow-up Information None Discharge Medications: New Prescriptions No new medications This document has been prepared with a voice recognition system. The possibility of "sound alike" store shopper errors, addition and/or deletions may occur. If there is any question p lease contact the author of the document. Procedures Additional Documentation Critical Care Performed by: FREDDY KENNEDY Authorized by: FREDDY KENNEDY Total critical care time: 45 minutes Critical care time was exclusive of separately billable procedures and treating other patie nts. Critical care was necessary to treat or prevent imminent or life-threatening deterioration of the following conditions: respiratory failure. Critical care was time spent personally by me on the following activities: development of t reatment plan with patient or surrogate, discussions with consultants, interpretation of car diac output measurements, examination of patient, evaluation of patient's response to treatm ent, obtaining history from patient or surrogate, ordering and performing treatments and int erventions, ordering and review of laboratory studies, ordering and review of radiographic s tudies, pulse oximetry, re-evaluation of patient's condition and ventilator management. Freddy Kennedy MD 08/27/149 onversion Transactio n, Provider Unknown - 08/27/2014 4:44 PM PDT ED Notes by Jacki Sheldon RN at 08/27/141643 Author: Jacki Sheldon RN Service: (none) Author Type: Registered Nurse Filed: 08/27/141643 Date of Service: 08/27/141643 Status: Signed Patent Engineer: Jacki Sheldon RN (Registered Nurse) Bed: 03 Expected date: Expected time: Means of arrival: Comments: docume nted in this encounter Plan of Treatment Not [...] | + +--------+ + + + | ECG 12 LEAD | Routin | 08/27/2014 | | Results for this | | | e | 4:49 PM | | procedure are in the [...] | | | Fingerstick | performed at [facility];[address] | | LAB | | | | [address];[place] | | | | | | [address] | | | | + + + [...] | | | Fingerstick | performed at [facility];[address] | | LAB | | | | [address];[place] | | | | | | [address] | | | | + + + [...] | | | Fingerstick | performed at [facility];[address] | | LAB | | | | [address];[place], [place] | | | | | | [address] | | | | + + + [...] | | | Fingerstick | performed at [facility] | | LAB | | | | [address];[place], [place] | | | | | | [address] | | | | + + + [...] | | | Fingerstick | performed at [facility];[address] | | LAB | | | | [address];[place] | | | | | | [address] | | | | + + + [...] | | | Fingerstick | performed at [facility];[address] | | LAB | | | | [address];[place] | | | | | | [address] | | | | + + + [...] EXTERNAL | | | | performed at [facility], [address] | | LAB | | | | [address], | | | | | | [place] [address] | | | | + + + + + + | Non- | 3.77Comment: Testing | 3.70 - 5.10 | EXTERNAL | | | Red Blood | performed at [facility], [address] | M/uL | LAB | | | Cells | [address], | | | | | Counted | [place] [address] | | | | + + + + + + | Hemoglobin | 12.0Comment: Testing | 11.3 - 15.5 | EXTERNAL | | | | performed at [facility], [address] | g/dL | LAB | | | | [address], | | | | | | [place] [address] | | | | + + + + + + | Hematocrit, | 33.9 (L)Comment: Testing | 34.0 - 46.0 % | EXTERNAL | | | POC | performed at [facility], [address] | | LAB | | | | [address], | | | | | | [place] [address] | | | | + + + + + + | MCV | 89.9Comment: Testing | 80.0 - 100.0 fl | EXTERNAL | | | | performed at [facility], [address] | | LAB | | | | [address], | | | | | | [place] [address] | | | | + + + + + + | MCH | 31.8Comment: Testing | 27.0 - 34.0 pg | EXTERNAL | | | | performed at [facility], [address] | | LAB | | | | [address], | | | | | | [place] [address] | | | | + + + + + + | MCHC | 35.4Comment: Testing | 32.0 - 35.5 | EXTERNAL | | | | performed at [facility], [address] | g/dL | LAB | | | | [address], | | | | | | [place], [place] [address] | | | | + + + + + + | RDW-CV | 40.7Comment: Testing | 37 - 53 fl | EXTERNAL | | | | performed at [facility], [address] | | LAB | | | | [address], | | | | | | [place] [address] | | | | + + + + + + | Platelet | 293Comment: Testing | 150 - 400 K/uL | EXTERNAL | | | Count | performed at [facility], [address] | | LAB | | | Plasma | [address], | | | | | | [place] [address] | | | | + + + + + + | MPV | 8.7Comment: Testing | fl | EXTERNAL | | | | performed at [facility], [address] | | LAB | | | | [address], | | | | | | [place] [address] | | | | + + + [...] EXTERNAL | | | | performed at [facility], [address] | | LAB | | | | [address], | | | | | | [place] [address] | | | | + + + [...] EXTERNAL | | | | performed at [facility], [address] | | LAB | | | | [address], | | | | | | [place] [address] | | | | + + + [...] | performed at [facility], [address] | mmol/L | LAB | | | | [address], | | | | | | [place] [address] | | | | + + + + + + | K | 3.4 (L)Comment: Testing | 3.5 - 4.9 | EXTERNAL | | | | performed at [facility], [address] | mmol/L | LAB | | | | [address], | | | | | | [place] [address] | | | | + + + + + + | Cl | 107Comment: Testing | 99 - 109 mmol/L | EXTERNAL | | | | performed at [facility], [address] | | LAB | | | | [address], | | | | | | [place] [address] | | | | + + + + + + | CO2 | 24Comment: Testing | 23 - 32 mmol/L | EXTERNAL | | | | performed at [facility], [address] | | LAB | | | | [address], | | | | | | [place] [address] | | | | + + + + + + | Anion Gap | 10Comment: Testing | 5 - 20 mmol/L | EXTERNAL | | | | performed at [facility], [address] | | LAB | | | | [address], | | | | | | [place] [address] | | | | + + + + + + | Glucose, | 108 (H)Comment: Testing | 65 - 99 mg/dL | EXTERNAL | | | Fasting | performed at [facility], [address] | | LAB | | | | [address], | | | | | | [place] [address] | | | | + + + + + + | BUN | 17Comment: Testing | 8 - 25 mg/dL | EXTERNAL | | | | performed at [facility], [address] | | LAB | | | | [address], | | | | | | [place] [address] | | | | + + + + + + | Creatinine | 0.73Comment: Testing | 0.50 - 1.00 | EXTERNAL | | | | performed at [facility], [address] | mg/dL | LAB | | | | [address], | | | | | | [place] [address] | | | | + + + + + + | BUN/Creatin | 23Comment: Testing | | EXTERNAL | | | ine Ratio | performed at [facility], [address] | | LAB | | | | [address], | | | | | | [place] [address] | | | | + + + + + + | Calcium | 8.7Comment: Testing | 8.5 - 10.2 | EXTERNAL | | | | performed at [facility], [address] | mg/dL | LAB | | | | [address], | | | | | | [place] [address] | | | | + + + [...] W | | | | | | [address], | | | | | | [place] [address] | | | | + + + [...] | | | Fingerstick | performed at [facility];[address] | | LAB | | | | [address];[place] | | | | | | [address] | | | | + + + [...] | | | Fingerstick | performed at [facility];[address] | | LAB | | | | [address];[place] | | | | | | [address] | | | | + + + [...] | | | Fingerstick | performed at [facility];[address] | | LAB | | | | [address];[place], [place] | | | | | | [address] | | | | + + + [...] | | | ------REPORT ADDENDED------ INDICATIONS ACUTE AR/WMA | | | ACUTE RESP FAILURE, SNCOPE, [...] 72.86 ml D-E Excursion: 1.47 cm E-F [place]: | | | 0.07 m/s EPSS: 0.45 [...] | A Ian: 0.26 m/s TV Dec [place]: 1.64 m/s2 TV Dec Time: | | | 276.68 ms TV E Ian: 0.45 m/s TV E/A Ratio: 1.71 | | | Night Time Babysitter: COLIN Authenticated by: Elena Tafoya MD Report | | | Date/Time: 08-28-2014 17:41:09 | | + + + + + | Procedure Note | + + | Eliazar Falk - 06/11/2019 5:29 PM PDT Patient Name: Perry DONNELLY | | : 1940 Performing Physician: Elena Tafoya | | MD ------REPORT | | ADDENDED------INDICATIONS ACUTE AR/WMA ACUTE RESP FAILURE, SNCOPE, COLLAPSE, | | [...] (A-L): 27.65 ml/m2LAAs A2C: | | 17.16 [id number] A-L A2C: 44.31 mlLALs A2C: 5.64 cmLAAs A4C: 17.69 [id number] A-L | | A4C: 48.18 mlLALs A4C: 5.51 cmAo Diam: 2.78 cmAV Cusp: 1.64 cmLA Diam: 3.23 | | cmLA/Ao: 1.16%FS: 48.45 %EDV(Teich): 91.08 mlEF(Teich): 79.99 %ESV(Teich): | | 18.21 mlIVSd: 0.59 cmIVSs: 0.92 cmLVIDd: 4.47 cmLVIDs: 2.30 cmLVPWd: 0.69 | | cmLVPWs: 1.29 cmSV(Teich): 72.86 mlD-E Excursion: 1.47 cmE-F [place]: 0.07 | | m/sEPSS: 0.45 cmIVC diameter: 1.64 cmIVC collapse: 0.56 cmIVC % collapse: 63.87 | | %HR: 67.62 BPMAV maxP.56 mmHgAV meanP.44 mmHgAV Vmax: 1.46 m/Todd Vmean: | | 0.96 m/Todd VTI: 30.60 cmAVA Vmax: 2.97 cm2AVA (VTI): 2.74 yr2TOJA Dopp: 3.43 | | [id number] Dopp: 5.81 l/minHR: 69.06 BPMLVOT maxP.75 mmHgLVOT [...] | m/sMV VTI: 44.97 cmMVA (VTI): 1.87 vn2Tnbyhr e': 0.07 m/sSeptal E/e': | | 16.76Lateral [...] | m/sTV A Ian: 0.26 m/sTV Dec [place]: 1.64 m/s2TV Dec Time: 276.68 msTV E Ian: 0.45 | | m/sTV E/A Ratio: 1.71 Night Time Babysitter: Melyticated by: Elena Morgan | | Date/Time: [...] | |D-E Excursion: 1.47 cm | |E-F [place]: 0.07 m/s | |EPSS: 0.45 cm | [...] A Ian: 0.26 m/s | |TV Dec [place]: 1.64 m/s2 | |TV Dec Time: 276.68 ms | |TV E Ian: 0.45 m/s | |TV E/A Ratio: 1.71 | | | |Night Time Babysitter: COLIN | |Authenticated by: Elena Tafoya MD [...] Rad Conversion - 06/11/2019 5:29 PM PDT HISTORY:Left flank [...] EXTERNAL | | | | performed at [facility];[address] | | LAB | | | | [address] [facility];[place], [place] | | | | | | [address] | | | | + + + [...] | | | | | | ACUTE AR Testing | | | | | | performed at [facility] | | | | | | [facility];[place], [place] | | | | | | [address] | | | | + + + [...] EXTERNAL | | | | performed at [facility];[address] | mmol/L | LAB | | | | [address];[place] | | | | | | [address] | | | | + + + [...] LAB | | | | performed at [facility];[address] | | | | | | [address];[place], [place] | | | | | | [address] | | | | + + + [...] EXTERNAL | | | | performed at [facility], [address] | mmol/L | LAB | | | | [address], | | | | | | [place] [address] | | | | + + + [...] | | | Fingerstick | performed at [facility];[address] | | LAB | | | | [address];[place] | | | | | | [address] | | | | + + + [...] in bilateral lower extremities. | | | RADIA Electronically signed by García Ferrera MD on Aug | | | 2013 1:21AM Referring Provider Line: [phone] ID: [id number] | | + + + + + + | Narrative | Performed At | + + + | EXAM: BILATERAL LOWER EXTREMITY VENOUS ULTRASOUND EXAM DATE: | | | 08/28/2014 01:41 AM. CLINICAL HISTORY: Elevated d-dimer. | | | COMPARISON: None. TECHNIQUE: Real-time sonographic vascular | | | imaging was performed by the conference concierge through the lower extremities | | | utilizing both color-flow and Doppler spectral analysis. Multiple | | | financial services sales representative static images were saved for review. [...] imaging was performed by the | | conference concierge through the lower extremities utilizing both color-flow and Doppler | | spectral analysis. Multiple financial services sales representative static images were saved for review. [...] 2014 | | 1:21AM Referring Provider Line: [phone] ID: [id number] | |Superficial Femoral Vein (SFV) [...] Aug 28 2014 1:21AM Referring Provider Line: [phone] ID: [id number] | + + POC Glucose (08/28/2014 1:34 AM PDT) + + + + + + | Component | Value | Ref Range | Performed | Pathologist | | | | | At | Signature | + + + + + + | Glucose, | 116 (H)Comment: Testing | 65 - 99 mg/dL | EXTERNAL | | | Fingerstick | performed at [facility];[address] | | LAB | | | | [address];[place], [place] | | | | | | [address] | | | | + + + [...] EXTERNAL | | | | performed at [facility];[address] | | LAB | | | | [address];[place], [place] | | | | | | [address] | | | | + + + [...] | | | | | | ACUTE AR Testing | | | | | | performed at [facility];[address] | | | | | | [facility];[place], [place] | | | | | | [address] | | | | + + + [...] EXTERNAL | | | | performed at [facility], [address] | | LAB | | | | [address], | | | | | | [place] [address] | | | | + + + + + + | Non- | 4.06Comment: Testing | 3.70 - 5.10 | EXTERNAL | | | Red Blood | performed at [facility], [address] | M/uL | LAB | | | Cells | [address], | | | | | Counted | [place] [address] | | | | + + + + + + | Hemoglobin | 12.8Comment: Testing | 11.3 - 15.5 | EXTERNAL | | | | performed at [facility], [address] | g/dL | LAB | | | | [address], | | | | | | [place] [address] | | | | + + + + + + | Hematocrit, | 36.0Comment: Testing | 34.0 - 46.0 % | EXTERNAL | | | POC | performed at [facility], [address] | | LAB | | | | [address], | | | | | | [place] [address] | | | | + + + + + + | MCV | 88.8Comment: Testing | 80.0 - 100.0 fl | EXTERNAL | | | | performed at [facility], [address] | | LAB | | | | [address], | | | | | | [place] [address] | | | | + + + + + + | MCH | 31.5Comment: Testing | 27.0 - 34.0 pg | EXTERNAL | | | | performed at [facility], [address] | | LAB | | | | [address], | | | | | | [place] [address] | | | | + + + + + + | MCHC | 35.4Comment: Testing | 32.0 - 35.5 | EXTERNAL | | | | performed at [facility], [address] | g/dL | LAB | | | | [address], | | | | | | [place] [address] | | | | + + + + + + | RDW-CV | 40.3Comment: Testing | 37 - 53 fl | EXTERNAL | | | | performed at [facility], [address] | | LAB | | | | [address], | | | | | | [place] [address] | | | | + + + + + + | Platelet | 299Comment: Testing | 150 - 400 K/uL | EXTERNAL | | | Count | performed at [facility], [address] | | LAB | | | Plasma | [address], | | | | | | [place] [address] | | | | + + + + + + | MPV | 8.5Comment: Testing | fl | EXTERNAL | | | | performed at [facility], [address] | | LAB | | | | [address], | | | | | | [place] [address] | | | | + + + + + + | Differentia | AUTOMATEDComment: | | EXTERNAL | | | l Type | Testing performed at | | LAB | | | | [facility], [address] | | | | | | [place] | | | | | | [address] | | | | + + + + + + | % Segmented | 69.8Comment: Testing | % | EXTERNAL | | | | performed at [facility], [address] | | LAB | | | Neutrophils | [address], | | | | | | [place] [address] | | | | + + + + + + | % | 20.4Comment: Testing | % | EXTERNAL | | | Lymphocytes | performed at [facility], [address] | | LAB | | | | [address], | | | | | | [place] [address] | | | | + + + + + + | % Monocytes | 8.5Comment: Testing | % | EXTERNAL | | | | performed at [facility], [address] | | LAB | | | | [address], | | | | | | [place] [address] | | | | + + + + + + | % | 1.1Comment: Testing | % | EXTERNAL | | | Eosinophils | performed at [facility], [address] | | LAB | | | | [address], | | | | | | [place] [address] | | | | + + + + + + | % Basophils | 0.2Comment: Testing | % | EXTERNAL | | | | performed at [facility], [address] | | LAB | | | | [address], | | | | | | [place] [address] | | | | + + + + + + | Absolute | 8.4 (H)Comment: Testing | 1.9 - 7.4 K/uL | EXTERNAL | | | Segmented | performed at [facility], [address] W | | LAB | | | Neutrophils | [address], | | | | | | [place] [address] | | | | + + + + + + | Absolute | 2.4Comment: Testing | 1.0 - 3.9 K/uL | EXTERNAL | | | Lymphocytes | performed at [facility], [address] | | LAB | | | | [address], | | | | | | [place] [address] | | | | + + + + + + | Absolute | 1.0 (H)Comment: Testing | 0 - 0.8 K/uL | EXTERNAL | | | Monocytes | performed at [facility], [address] | | LAB | | | | [address], | | | | | | [place] [address] | | | | + + + + + + | Absolute | 0.1Comment: Testing | 0 - 0.5 K/uL | EXTERNAL | | | Eosinophils | performed at [facility], [address] | | LAB | | | | [address], | | | | | | [place] [address] | | | | + + + + + + | Absolute | 0.0Comment: Testing | 0 - 0.1 K/uL | EXTERNAL | | | Basophils | performed at [facility], [address] | | LAB | | | | [address], | | | | | | [place] [address] | | | | + + + [...] EXTERNAL | | | | performed at [facility];[address] | | LAB | | | | [address];[place] | | | | | | [address] | | | | + + + [...] EXTERNAL | | | | performed at [facility];[address] | mmol/L | LAB | | | | [address];[place] | | | | | | [address] | | | | + + + + + + | K | 2.5 (LL)Comment: K | 3.5 - 4.9 | EXTERNAL | | | | PHONED TO [facility] Carrillo AT | mmol/L | LAB | | | | 0755 BY LJREAD BACK | | | | | | RESULTS VERIFIEDTesting | | | | | | performed at [facility];[address] | | | | | [address];[place] | | | | | | [address] | | | | + + + + + + | Cl | 107Comment: Testing | 99 - 109 mmol/L | EXTERNAL | | | | performed at [facility];[address] | | LAB | | | | [address];[place] | | | | | | [address] | | | | + + + + + + | CO2 | 25Comment: Testing | 23 - 32 mmol/L | EXTERNAL | | | | performed at [facility];[address] | | LAB | | | | [address];[place] | | | | | | [address] | | | | + + + + + + | Anion Gap | 12Comment: Testing | 5 - 20 mmol/L | EXTERNAL | | | | performed at [facility];[address] | | LAB | | | | [address];[place] | | | | | | [address] | | | | + + + + + + | Glucose, | 98Comment: Testing | 65 - 99 mg/dL | EXTERNAL | | | Fasting | performed at [facility];[address] | | LAB | | | | [address];[place] | | | | | | [address] | | | | + + + + + + | BUN | 14Comment: Testing | 8 - 25 mg/dL | EXTERNAL | | | | performed at [facility];[address] | | LAB | | | | [address];[place] | | | | | | [address] | | | | + + + + + + | Creatinine | 0.78Comment: Testing | 0.50 - 1.00 | EXTERNAL | | | | performed at [facility];[address] | mg/dL | LAB | | | | [address];[place] | | | | | | [address] | | | | + + + + + + | BUN/Creatin | 18Comment: Testing | | EXTERNAL | | | ine Ratio | performed at [facility];[address] | | LAB | | | | [address];[place] | | | | | | [address] | | | | + + + + + + | Calcium | 8.7Comment: Testing | 8.5 - 10.2 | EXTERNAL | | | | performed at [facility];[address] | mg/dL | LAB | | | | [address];[place] | | | | | | [address] | | | | + + + + + + | Protein, | 6.7Comment: Testing | 6.3 - 8.2 g/dL | EXTERNAL | | | Total | performed at [facility];[address] | | LAB | | | | [address];[place] | | | | | | [address] | | | | + + + + + + | Albumin | 3.6Comment: Testing | 3.3 - 4.8 g/dL | EXTERNAL | | | | performed at [facility];[address] | | LAB | | | | [address];[place] | | | | | | [address] | | | | + + + + + + | Globulin | 3.1Comment: Testing | 1.3 - 4.9 g/dL | EXTERNAL | | | | performed at [facility];[address] | | LAB | | | | [address];[place] | | | | | | [address] | | | | + + + + + + | A/G Ratio | 1.2Comment: Testing | 1.0 - 2.4 | EXTERNAL | | | | performed at [facility];[address] | | LAB | | | | [address];[place] | | | | | | [address] | | | | + + + + + + | Bilirubin | 0.4Comment: Testing | 0.1 - 1.5 mg/dL | EXTERNAL | | | Total | performed at [facility];[address] | | LAB | | | | [address];[place] | | | | | | [address] | | | | + + + + + + | ALP, | 88Comment: Testing | 35 - 115 U/L | EXTERNAL | | | External | performed at [facility];[address] | | LAB | | | | [address];[place] | | | | | | [address] | | | | + + + + + + | AST | 31Comment: Testing | 10 - 45 U/L | EXTERNAL | | | | performed at [facility];[address] | | LAB | | | | [address];[place] | | | | | | [address] | | | | + + + + + + | ALT | 31Comment: Testing | 10 - 65 U/L | EXTERNAL | | | | performed at [facility];[address] | | LAB | | | | [address];[place] | | | | | | [address] | | | | + + + [...] | | | | | | at [facility];[address] [place] [address] | | | | | | [facility];[place] [address] | | | | + + + [...] 1:58AM Referring Provider Line: | | | [phone] ID: [id number] | | + + + + + + | Narrative | Performed At | + + + | MR brain MR brain without contrast, MR angiogram brain | | | INDICATION: Altered mental status. Seizure. Technique : | | | multisequence, multiplanar MR imaging of the brain without IV | | | contrast. 3-D swsf-ls-hvvccn MR angiography with MIP reconstruction | | [...] of the brain without IV contrast. 3-D rlgg-rl-yydawf MR | | angiography with MIP reconstruction [...] 2014 1:58AM Referring | | Provider Line: [phone] ID: [id number] | | | |Both internal [...] 28 2014 1:58AM Referring Provider Line: [phone] ID: [id number] | + + HISTORICAL MICROBIOLOGY RESULT (08/27/2014 6:30 PM PDT) + + | Specimen | + + | Stool specimen | | (specimen) | + + + + + | Narrative | Performed At | + + + | Toxigenic C Difficile NEGATIVE Testing | EXTERNAL LAB | | performed at [facility];[address] [facility];[place] [address] 027 NAP1 BI | | | 027 NAP1 BI PRESUMPTIVE NEGATIVE | | | Detection of 027 NAP1 BI strains of C. difficile is presumptive and | | | for epidemiological purposes and not intended to guide or monitor | | | treatment for C. difficile infections. Testing performed at [facility];[address] | | | [facility];[place] [address] | | + + + + +---------+ [...] TESTING. | | | Testing performed at [facility], [address] | | | [place] [address] | | + + + + +---------+ [...] Prior examination: None. FINDINGS: | | | Bleach Boiler Packer notable for midline endotracheal tube and enteric [...] Rad Conversion - 06/11/2019 5:29 PM PDT HISTORY:trauma, demographics unknown. | | TECHNIQUE: Axial noncontrast head CT. Prior examination: None. FINDINGS: Bleach Boiler Packer notable | | for midline endotracheal tube [...] EXTERNAL | | | | performed at [facility];[address] | | LAB | | | | [address];[place] | | | | | | [address] | | | | + + + + + -+ | Non- | 4.08Comment: Testing | 3.70 - 5.10 | EXTERNAL | | | Red Blood | performed at [facility];[address] | M/uL | LAB | | | Cells | [address];[place] | | | | | Counted | [address] | | | | + + + + + -+ | Hemoglobin | 12.8Comment: Testing | 11.3 - 15.5 | EXTERNAL | | | | performed at [facility];[address] | g/dL | LAB | | | | [address];[place] | | | | | | [address] | | | | + + + + + -+ | Hematocrit, | 36.1Comment: Testing | 34.0 - 46.0 % | EXTERNAL | | | POC | performed at [facility];[address] | | LAB | | | | [address];[place] | | | | | | [address] | | | | + + + + + -+ | MCV | 88.5Comment: Testing | 80.0 - 100.0 fl | EXTERNAL | | | | performed at [facility];[address] | | LAB | | | | [address];[place] | | | | | | [address] | | | | + + + + + -+ | MCH | 31.3Comment: Testing | 27.0 - 34.0 pg | EXTERNAL | | | | performed at [facility];[address] | | LAB | | | | [address];[place] | | | | | | [address] | | | | + + + + + -+ | MCHC | 35.4Comment: Testing | 32.0 - 35.5 | EXTERNAL | | | | performed at [facility];[address] | g/dL | LAB | | | | [address];[place] | | | | | | [address] | | | | + + + + + -+ | RDW-CV | 40.7Comment: Testing | 37 - 53 fl | EXTERNAL | | | | performed at [facility];[address] | | LAB | | | | [address];[place] | | | | | | [address] | | | | + + + + + -+ | Platelet | 326Comment: Testing | 150 - 400 K/uL | EXTERNAL | | | Count | performed at [facility];[address] | | LAB | | | Plasma | [address];[place] | | | | | | [address] | | | | + + + + + -+ | MPV | 7.8Comment: Testing | fl | EXTERNAL | | | | performed at [facility];[address] | | LAB | | | | [address];[place] | | | | | | [address] | | | | + + + + + -+ | Differentia | AUTOMATEDComment: | | EXTERNAL | | | l Type | Testing performed at | | LAB | | | | [facility];[address];[place] [address] | | | | + + + + + -+ | % Segmented | 59.9Comment: Testing | % | EXTERNAL | | | | performed at [facility];[address] | | LAB | | | Neutrophils | [address];[place] | | | | | | [address] | | | | + + + + + -+ | % | 29.6Comment: Testing | % | EXTERNAL | | | Lymphocytes | performed at [facility];[address] | | LAB | | | | [address];[place] | | | | | | [address] | | | | + + + + + -+ | % Monocytes | 7.9Comment: Testing | % | EXTERNAL | | | | performed at [facility];[address] | | LAB | | | | [address];[place] | | | | | | [address] | | | | + + + + + -+ | % | 1.7Comment: Testing | % | EXTERNAL | | | Eosinophils | performed at [facility];[address] | | LAB | | | | [address];[place] | | | | | | [address] | | | | + + + + + -+ | % Basophils | 0.9Comment: Testing | % | EXTERNAL | | | | performed at [facility];[address] | | LAB | | | | [address];[place] | | | | | | [address] | | | | + + + + + -+ | Absolute | 4.5Comment: Testing | 1.9 - 7.4 K/uL | EXTERNAL | | | Segmented | performed at [facility];[address] | | LAB | | | Neutrophils | [address];[place] | | | | | | [address] | | | | + + + + + -+ | Absolute | 2.2Comment: Testing | 1.0 - 3.9 K/uL | EXTERNAL | | | Lymphocytes | performed at [facility];[address] | | LAB | | | | [address];[place] | | | | | | [address] | | | | + + + + + -+ | Absolute | 0.6Comment: Testing | 0 - 0.8 K/uL | EXTERNAL | | | Monocytes | performed at [facility];[address] | | LAB | | | | [address];[place] | | | | | | [address] | | | | + + + + + -+ | Absolute | 0.1Comment: Testing | 0 - 0.5 K/uL | EXTERNAL | | | Eosinophils | performed at [facility];[address] | | LAB | | | | [address];[place] | | | | | | [address] | | | | + + + + + -+ | Absolute | 0.1Comment: Testing | 0 - 0.1 K/uL | EXTERNAL | | | Basophils | performed at [facility];[address] | | LAB | | | | [address];[place] | | | | | | [address] | | | | + + + + + -+ | Na | 137Comment: Testing | 135 - 143 | EXTERNAL | | | | performed at [facility];[address] | mmol/L | LAB | | | | [address];[place] | | | | | | [address] | | | | + + + + + -+ | K | 3.1 (L)Comment: Testing | 3.5 - 4.9 | EXTERNAL | | | | performed at [facility];[address] | mmol/L | LAB | | | | [address];[place] | | | | | | [address] | | | | + + + + + -+ | Cl | 104Comment: Testing | 99 - 109 mmol/L | EXTERNAL | | | | performed at [facility];[address] | | LAB | | | | [address];[place] | | | | | | [address] | | | | + + + + + -+ | CO2 | 22 (L)Comment: Testing | 23 - 32 mmol/L | EXTERNAL | | | | performed at [facility];[address] | | LAB | | | | [address];[place] | | | | | | [address] | | | | + + + + + -+ | Anion Gap | 14Comment: Testing | 5 - 20 mmol/L | EXTERNAL | | | | performed at [facility];[address] | | LAB | | | | [address];[place] | | | | | | [address] | | | | + + + + + -+ | Glucose, | 131 (H)Comment: Testing | 65 - 99 mg/dL | EXTERNAL | | | Fasting | performed at [facility];[address] | | LAB | | | | [address];[place] | | | | | | [address] | | | | + + + + + -+ | BUN | 19Comment: Testing | 8 - 25 mg/dL | EXTERNAL | | | | performed at [facility];[address] | | LAB | | | | [address];[place] | | | | | | [address] | | | | + + + + + -+ | Creatinine | 1.05 (H)Comment: Testing | 0.50 - 1.00 | EXTERNAL | | | | performed at [facility];[address] | mg/dL | LAB | | | | [address];[place] | | | | | | [address] | | | | + + + + + -+ | BUN/Creatin | 19Comment: Testing | | EXTERNAL | | | ine Ratio | performed at [facility];[address] | | LAB | | | | [address];[place] | | | | | | [address] | | | | + + + + + -+ | Calcium | 8.4 (L)Comment: Testing | 8.5 - 10.2 | EXTERNAL | | | | performed at [facility];[address] | mg/dL | LAB | | | | [address];[place] | | | | | | [address] | | | | + + + + + -+ | Protein, | 6.6Comment: Testing | 6.3 - 8.2 g/dL | EXTERNAL | | | Total | performed at [facility];[address] | | LAB | | | | [address];[place] | | | | | | [address] | | | | + + + + + -+ | Albumin | 3.6Comment: QA FLAGS | 3.3 - 4.8 g/dL | EXTERNAL | | | | AND/OR RANGES MODIFIED | | LAB | | | | BY DEMOGRAPHIC UPDATE ON | | | | | | 08/27 AT 194Testing | | | | | | performed at [facility];[address] | | | | | | [address];[place] | | | | | | [address] | | | | + + + + + -+ | Globulin | 3.0Comment: Testing | 1.3 - 4.9 g/dL | EXTERNAL | | | | performed at [facility];[address] | | LAB | | | | [address];[place] | | | | | | [address] | | | | + + + + + -+ | A/G Ratio | 1.2Comment: Testing | 1.0 - 2.4 | EXTERNAL | | | | performed at [facility];[address] | | LAB | | | [address];[place] | | | | | | [address] | | | | + + + + + -+ | Bilirubin | 0.6Comment: Testing | 0.1 - 1.5 mg/dL | EXTERNAL | | | Total | performed at [facility];[address] | | LAB | | | | [address];[place] | | | | | | [address] | | | | + + + + + -+ | ALP, | 89Comment: Testing | 35 - 115 U/L | EXTERNAL | | | External | performed at [facility];[address] | | LAB | | | | [address];[place] | | | | | | [address] | | | | + + + + + -+ | AST | 26Comment: Testing | 10 - 45 U/L | EXTERNAL | | | | performed at [facility];[address] | | LAB | | | [address];[place] | | | | | | [address] | | | | + + + + + -+ | ALT | 33Comment: Testing | 10 - 65 U/L | EXTERNAL | | | | performed at [facility];[address] | | LAB | | | | [address];[place] | | | | | | [address] | | | | + + + [...] | | | | | | at [facility];[address];[place] [address] | | | | + + + + + -+ | CK, Total | 49Comment: Testing | 30 - 240 U/L | EXTERNAL | | | | performed at [facility];[address] | | LAB | | | | [address];[place] | | | | | | [address] | | | | + + + [...] | | | | | performed at [facility];[address] | | | | | | [address];[place] | | | | | | [address] | | | | + + + + + -+ | aPTT, | 24Comment: Testing | 23 - 32 seconds | EXTERNAL | | | Patient | performed at [facility];[address] | | LAB | | | [address];[place] | | | | | | [address] | | | | + + + + + -+ | CK-MB | 1.6Comment: Testing | 0.5 - 3.6 ng/mL | EXTERNAL | | | | performed at [facility];[address] | | LAB | | | | [address];[place] | | | | | | [address] | | | | + + + [...] | | | | | performed at [facility] | | | | | | [facility];[place], [place] | | | | | | [address] | | | | + + + [...] EXTERNAL | | | | performed at [facility];[address] | | LAB | | | [address];[place] | | | | | | [address] | | | | + + + [...] + + + + + + | TSH | 0.87Comment: Testing | 0.45 - 5.10 | EXTERNAL | | | | performed at [facility];[address] | uIU/mL | LAB | | | | [address];[place], [place] | | | | | | [address] | | | | + + + [...] EXTERNAL | | | | performed at [facility];[address] | | LAB | | | | [address];[place], [place] | | | | | | [address] | | | | + + + [...] EXTERNAL | | | | performed at [facility];[address] | | LAB | | | | [address];[place] | | | | | | [address] | | | | + + + [...] + + | Hemoglobin | 5.2Comment: [facility] | 4.0 - 6.0 % | EXTERNAL [...] | | | | | performed at [facility], [address] | | | | | [address] [facility] [place], | | | | | | [place] [address] | | | | + + + [...] | | | | | performed at [facility], [address] | | | | | | [facility], [place], | | | | | | [place] [address] | | | | + + + [...] | | | Alcohol | performed at [facility];[address] | | LAB | | | | [address];[place], [place] | | | | | | [address] | | | | + + + + + + + + | Specimen | + + | | + + + +---------+ + + | Performing | Address | City/State/Zipcode | Phone Number | | Organization | | | | + +---------+ + + | EXTERNAL LAB | | | | + +---------+ + + POC CG 4, ISTAPorsche Arterial (08/27/2014 5:12 PM PDT) + + + + + + | Component | Value | Ref Range | Performed | Pathologist | | | | | At | Signature | + + + + + + | PH ART | 7.324 (L)Comment: | 7.350 - 7.450 | EXTERNAL | | | | Testing performed at | | LAB | | | | [facility];[address];[place] [address] | | | | + + + + + + | PCO2 ART | 36Comment: Testing | 35 - 45 mmHg | EXTERNAL | | | | performed at [facility];[address] | | LAB | | | | [address];[place] | | | | | | [address] | | | | + + + + + + | PO2 ART | 74 (L)Comment: Testing | 80 - 105 mmHg | EXTERNAL | | | | performed at [facility];[address] | | LAB | | | | [address];[place] | | | | | | [address] | | | | + + + + + + | Lactate, | 4.4 (H)Comment: Testing | 0.36 - 1.25 | EXTERNAL | | | Arterial | performed at [facility];[address] | mmol/L | LAB | | | | [address];[place] | | | | | | [address] | | | | + + + + + + | HCO3 ART | 19 (L)Comment: Testing | 22 - 26 mmol/L | EXTERNAL | | | | performed at [facility];[address] | | LAB | | | | [address];[place] | | | | | | [address] | | | | + + + + + + | POC | 20 (L)Comment: Testing | 23 - 27 mEq/L | EXTERNAL | | | APPEARANCE | performed at [facility];[address] | | LAB | | | UA | [address];[place] | | | | | | [address] | | | | + + + + + + | Base | 7 (H)Comment: Testing | 0.0 - 2.0 | EXTERNAL | | | deficit | performed at [facility];[address] | mmol/L | LAB | | | | [address];[place] | | | | | | [address] | | | | + + + + + + | O2 SAT ART | 94 (L)Comment: Testing | 95 - 98 % | EXTERNAL | | | | performed at [facility];[address] | | LAB | | | | [address];[place] | | | | | | [address] | | | | + + + + + + | FiO2, POC | 40Comment: Testing | % | EXTERNAL | | | | performed at [facility];[address] | | LAB | | | [address];[place] | | | | | | [address] | | | | + + + + + + | Comment, | Tidal Volume = | | EXTERNAL | | | POC | 400Comment: Peep = 8Resp | | LAB | | | | Rate = 14Testing | | | | | | performed at [facility];[address] | | | | | | [address];[place], [place] | | | | | | [address] | | | | + + + [...] Rad Conversion - 06/11/2019 5:29 PM PDT HISTORY: [...] | | | | | + + ECG 12 lead (08/27/2014 4:49 PM PDT) + + + + + + | Component | Value | Ref Range | Performed | Pathologist | | | | | At | Signature | + + + + + + | DIAGNOSIS: | Normal sinus | | EXTERNAL | | | | rhythmNormal ECGThis ECG | | LAB | | | | contains Unconfirmed | | | | | | Interpretation | | | | | | Statements. See ED | | | | | | Record for Physician | | | | | | Interpretation. | | | | | | Confirmed by MUSE READ | | | | | | ONLY, -COMPUTER ([id number]), | | | | | | legal editor Maria Elena Marshall | | | | | | (29) on 08/28/2014 | | | | | | 6:30:03 AM | | | | + + + + + + + + | Specimen | + + | | + + + + + | Narrative | Performed At | + + + | Done per melinda Cotter and shown to Dr Kennedy Historically | EXTERNAL LAB | | converted procedure from [facility] Epic environment | | + + + + +---------+ [...]
--- OUTSIDE RECORDS SUMMARY | ~2020-05-21 | XMS | Encounter Summary ---
Demographics + + + | Address | [address] | | | [place] [address] | + + + | Home Phone | | + + + | Preferred Language | Unknown | + + + | Marital Status | | + + + | Islam Affiliation | 1077 | + + + | Race | Unknown | + + + | Ethnic Group | Unknown | + + + Author + + + | Author | [facility] | | | and [place] | + + + | Organization | [facility] | | [...] Providers + +------+ + | Care Regional Sales Associate Name | Role | Phone | + +------+ + PCP | Unavailable | + +------+ + Encounter Details +--------+ + + + + | Date | Type | Department | Care Team | Description | +--------+ + + + + | 06/10/ | Hospital | [facility] | [place], | | | 2012 | Encounter | [facility] | Hiro [place], | | | | | [facility] [address] | [address] | | | | | [address] [facility], | [facility], [place] | | | | | [place] [address] | [address] | | | | | [phone] | [phone] | | | | | | | [...]
--- OUTSIDE RECORDS SUMMARY | ~2020-05-21 | XMS | Encounter Summary ---
Demographics + + + | Address | [address] | | | [place] [address] | + + + | Home Phone [...] Providers + +------+ + | Care Senior Software Development Manager Name | Role | Phone | [...] | | | [place] | [id number] | Dx) | | | | [address] | | | | | | [phone] | | | +--------+---------+ + + + [...] on managing symptoms. Tr eatment may include: Ovme-caq-vgtsryf or prescription medicines taken by mouth to [...] get worse New symptoms Date Last Reviewed: 01/04/201619994904-8917 [employer]. [address] [place] [address]. All righ ts reserved. This information is not intended as a substitute for professional medical care. Always follow your healthcare professional's instructions. documented in this encounter Progress Notes Erik Hoffman MD - 01/22/2018 3:00 PM PDTFormatting of this note might be different f rom the original. [facility] Patient Name: Cristina Buckner | Age: 77 y.o. | : 1940 | [id number] | Author: Erik Hoffman MD | Date [...] servic es at a facility other than [facility]. Time out to verify correct patient, procedure [...]
--- OUTSIDE RECORDS SUMMARY | ~2020-05-21 | XMS | Encounter Summary ---
Demographics + + + | Address | [address] | | | [place] [address] | + + + | Home Phone [...] Team Providers + +------+ + | Care Web Content Executive Name | Role | Phone | [...] Medication Refill | | 2017 | | [facility] | [address] | | | | | [facility] [address] | [place] | | | | | DR [place]AYUSH [place], | [address] | | | | | [place] [address] | | | | | | [phone] | | | +--------+--------+ + + + [...]
--- OUTSIDE RECORDS SUMMARY | ~2020-05-21 | XMS | Encounter Summary ---
Demographics + + + | Address | [address] | | | [place] [address] | + + + | Home Phone [...] Team Providers + +------+ + | Care Drum Loader And Unloader Name | Role | Phone | [...] | | | | RYLIE MCDANIEL | [place], [place] | | | | | [address] | [address] | | | | | [phone] | [phone] | | | | | | | [...]
--- OUTSIDE RECORDS SUMMARY | ~2020-05-21 | XMS | Encounter Summary ---
Demographics + + + | Address | [address] | | | [place] [address] | + + + | Home Phone [...] Team Providers + +------+ + | Care Import/Export Analyst Name | Role | Phone | [...] | | | | RYLIE MCDANIEL | [place], [place] | | | | | [address] | [address] | | | | | [phone] | [phone] | | | | | | | [...]
--- OUTSIDE RECORDS SUMMARY | ~2020-05-21 | XMS | Encounter Summary ---
Demographics + + + | Address | [address] | | | [place] [address] | + + + | Home Phone | | + + + | Preferred Language | Unknown | + + + | Marital Status | | + + + | Confucianist Affiliation | [id number] | + + + | Race | Unknown | + + + | Ethnic Group | Unknown | + + + Author + + + | Author | [facility] | | | and [place] | + + + | Organization | [facility] | | | [...] Team Providers + +------+ + | Care Seam Finisher Name | Role | Phone | [...] [place] | | | | | [address], | [address] | | | | | [place] [address] | | | | | | [phone] | | | +--------+ + + + [...]
--- OUTSIDE RECORDS SUMMARY | ~2020-05-21 | XMS | Encounter Summary ---
Demographics + + + | Address | [address] | | | [place] [address] | + + + | Home Phone [...] Team Providers + +------+ + | Care Processing Technician Name | Role | Phone | [...] | | | [place], [place] | [address] | | | | | [address] | [phone] | | | | | [phone] | | | +--------+ + + + [...]
--- OUTSIDE RECORDS SUMMARY | ~2020-05-21 | XMS | Encounter Summary ---
Demographics + + + | Address | [address] | | | [place] [address] | + + + | Home Phone [...] Team Providers + +------+ + | Care Receiver Name | Role | Phone | + +------+ + | Yair Gleason MD | PCP | | + +------+ + Reason for Visit + +--------+ + | Reason | Onset | Comments | | | Date | | + +--------+ + | Medication Related | 07/20/ | | | | 2018 | | [...] [address] | | | | | [place] [address] | | | | | | [phone] | | | +--------+ + + + [...] Telephone Encounter - Dari Hansen RN - 07/21/2018 8:29 AM PDTCalled and informed pt /R ARIANA Hansen elephone [place]co unter - Dari Hansen RN - 07/20/2018 1:51 PM PDTDid you want to prescribe again? /ARIANA Rivas elephone Encounter - Lupe Jane - 07/20/2018 1:45 PM PDTPatient can not find her medication topamax s he called last week because she left it at home and you gave her a weeks worth. She went gabriela e and is unable to find the bottle of it. She has 2 pills left and wants to know if you can refill for her. She is in [place] again and uses [facility] there. Please call her and advise of her options. [phone]. 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
[2020-05-21] MEDS ORDERED: DOK100 MG PO (17:52)
[2020-05-21] MEDS ORDERED: MAGNESIUM250 M1 PO (17:54)
[2020-05-21] MEDS ORDERED: LEVOTHYROXINE88 MCG PO (17:54)
== END 2020-05-21 19:27 | disposition home or self-care (01) ==
LOC: ED 17:41
DX: G40.909 Epilepsy, unspecified, not intractable, without status epilepticus (principal); Z88.5 Allergy status to narcotic agent; Z91.030 Bee allergy status; Z79.82 Long term (current) use of aspirin; Z79.84 Long term (current) use of oral hypoglycemic drugs; Z79.899 Other long term (current) drug therapy
CPT/HCPCS: 80048; 81001; 85025; 87088; 87147; 96374; 99284-25; J2060

== ENCOUNTER 2020-10-11 14:34 | Emergency (ER) | payer MEDICARE ==
[~2020-10-11] VITALS: Ht 154.9 cm; Wt 47.6 kg
[~2020-10-11 14:34] MED LIST changes: +DOK100 MG PO; +MAGNESIUM250 M1 PO
== END 2020-10-11 19:18 | disposition home or self-care (01) ==
LOC: ED 14:34
DX: S92.512A Displaced fracture of proximal phalanx of left lesser toe(s), initial encounter for closed fracture (principal); X58.XXXA Exposure to other specified factors, initial encounter; Z88.5 Allergy status to narcotic agent; Z91.030 Bee allergy status; Z79.899 Other long term (current) drug therapy; Z79.82 Long term (current) use of aspirin; Z79.84 Long term (current) use of oral hypoglycemic drugs
CPT/HCPCS: 73630; 99283-25

== ENCOUNTER 2020-10-18 21:53 | Emergency (ER) | payer MEDICARE ==
[~2020-10-18] VITALS: Ht 157.5 cm; Wt 49.9 kg
== END 2020-10-18 23:57 | disposition home or self-care (01) ==
LOC: ED 21:53
DX: S92.532D Displaced fracture of distal phalanx of left lesser toe(s), subsequent encounter for fracture with routine healing (principal); X58.XXXD Exposure to other specified factors, subsequent encounter; E11.9 Type 2 diabetes mellitus without complications; Z88.5 Allergy status to narcotic agent; Z91.030 Bee allergy status; Z79.899 Other long term (current) drug therapy; Z79.82 Long term (current) use of aspirin; Z79.84 Long term (current) use of oral hypoglycemic drugs
CPT/HCPCS: 93971; 99283-25

== ENCOUNTER 2021-01-11 17:45 | Observation (INO) | payer MEDICARE ==
[~2021-01-11] VITALS: Ht 157.5 cm; Wt 46.0 kg
[~2021-01-11 17:45] MED LIST changes: +ALDACTONE25 MG PO; -SPIRONOLACTONE50 MG PO; +SYNTHROID75 MCG PO; +TOPAMAX50 MG PO; -TROKENDI XR25 MG PO
--- NOTE | 2021-01-11 19:59 | EKG ---
[facility] [address] [facility] [place] [address] Signed Normal sinus rhythm Possible Left atrial enlargement Incomplete right bundle branch block Borderline ECG When compared with ECG of 04-JAN-2019 23:46, T wave inversion now evident in Anterior leads Confirmed by MARLEN MAX MD ([id number]) on 01/11/2021 7:59:46 PM Electronically Signed By: MARLEN MAX MD 01/11/211958 PATIENT NAME: JHON DONNELLY LACHELLE Electrocardiogram DATE OF : 38 PHYSICIAN: MARLEN MAX MD REPORT #: [id number] REPORT IS CONFIDENTIAL AND NOT TO BE RELEASED WITHOUT AUTHORIZATION
--- NOTE | 2021-01-11 22:00 | NUR ---
PT ARRIVED TO CCU AT 2100 AND WAS BROUGHT DOWN BY SUPERVISOR DOPING WITH HER BELONGINGS. PT WAS INCONTINENT OF STOOL, PERICARE DONE, CAMP CLEANED, NEW GOWN PLACED ON PT. PT THEN WAS ABLE TO SLIDE HERSELF OVER FROM THE ER STRETCHER TO THE CCU BED WITH MINIMAL ASSISTANCE. ADMSSION PROCESS COMPLETED, SEIZURE PADS IN PLACE, ORDERED IV FLUIDS ADMINISTERED ALONG WITH ZOFRAN FOR NAUSEA. PT REPORTS NO SOB, LUNGS ARE CLEAR, PT IS ALERT AND ORIENTED X3. PT REPORTS NO FURTHER NEEDS AT THIS TIME AND WAS PROVIDED WITH WATER WHICH SHE WAS ABLE TO SIP ON WITHOUT DIFFICULTY. WILL CONTINUE PLAN OF CARE. CALL LIGHT IN REACH, BED IN LOWEST POSITION, IVF INFUSING ORDERED, SEIZURE PADS UP.
--- NOTE | 2021-01-11 22:30 | NUR ---
DR. MAX NOTIFIED VIA PHONE THAT PT USES MELATONIN FOR SLEEP. NEW ORDERS PLACED FOR MELATONIN, WILL CONTINUE PLAN OF CARE.
--- NOTE | 2021-01-11 22:48 | NUR ---
THIS RN IN TO ADMINISTER PRN MELATONIN PT. STATED SHE WANTED TO GO TO SLEEP. PT GIVEN A WARM BLANKET PER HER REQUEST. PT REPORTS NO FURTHER NEEDS AT THIS TIME, WILL CONTINUE PLAN OF CARE. CALL LIGHT IN REACH, BED IN LOWEST POSITION, IVF INFUSING ORDERED, SEIZURE PADS UP.
--- NOTE | 2021-01-11 23:30 | NUR ---
IV PUMP ALARMING, THIS RN IN TO CHECK ON PT. IV SITE WNL, IV FLUSHES WELL, FLUIDS RESTARTED. PT REPORTS NO FURTHER NEEDS AND STATES SHE WILL GO TO SLEEP AT THIS TIME, CAMP EMPTIED AT THIS TIME. CALL LIGHT IN REACH, BED IN LOWEST POSITION, IVF INFUSING ORDERED, SEIZURE PADS IN PLACE.
--- NOTE | 2021-01-12 02:29 | NUR ---
THIS RN IN TO CHECK ON PT. PT SLEEPING ON RA, BREATHING EVEN AND UNLABORED, IVF INFUSING AT ORDERED RATE, CAMP DRAINING. PT AWOKE BRIEFLY AND ASKED ME TO TAKE OFF HER GLASSES FOR HER. PT'S GLASSESS TAKEN OFF AND PLACED ON HER BEDSIDE TABLE. PT REPORTS NO FURTHER NEEDS AND IS NOW LAYING IN BED WATCHING TV, WILL CONTINUE PLAN OF CARE. CALL LIGHT IN REACH, BED IN LOWEST POSITION, SEIZURE PADS IN PLACE.
--- NOTE | 2021-01-12 04:20 | NUR ---
THIS RN CHECKING ON PT. PT LAYING IN BED ASLEEP, RESPIRATIONS EVEN AND UNLABORED, PT IN NO APPARENT DISTRESS AND WAS LEFT UNDISTURBED. CALL LIGHT IN REACH, BED IN LOWEST POSITION, SEIZURE PADS IN PLACE. WILL CONTINUE PLAN OF CARE.
--- NOTE | 2021-01-12 05:32 | NUR ---
THIS RN IN TO ASSESS PT AND TAKE VITALS AFTER LAB FINISHED DRAWING MORNING LABS. PT LAYING IN BED AWAKE AND ALERT. PT LUNGS CLEAR, PT ON ROOM AIR, SPO2 AT 99%. PT ORIENTED AND ASKED ME TO PUT ON THE NEWS FOR HER ON THE TV. AFTER ASSESSMENT PT STATED SHE WAS GOING TO GO BACK TO SLEEP. PT REPORTS NO FURTHER NEEDS AT THIS TIME WHEN ASKED. CALL LIGHT IN REACH, BED IN LOWEST POSITION, IVF INFUSING ORDERED, SEIZURE PADS UP,
--- NOTE | 2021-01-12 06:30 | NUR ---
THIS RN IN TO CHECK ON PT. PT AWAKE LAYING IN BED WATCHING TV. PT REPORTS NO FURTHER NEEDS AT THIS TIME, WILL CONTINUE PLAN OF CARE. CALL LIGHT IN REACH, BED IN LOWEST POSITION, IVF INFUSING, SEIZURE PADS IN PLACE.
--- NOTE | 2021-01-12 08:22 | NUR ---
PATIENT SHIFT REPORT RECIEVED FROM VP CUSTOMER SERVICE RN. PATIENT RESTING IN BED WITH SIEZURE PADS ON BED. NO OTHER NEEDS AT THIS TIME. WILL CONTINUE TO CLOSELY MONITOR.
--- NOTE | 2021-01-12 08:44 | NUR ---
THIS RN IN TO DO AM VITALS AND GIVE AM MEDS. WOKE PATIENT UP. PATIENT REQUESTS TO SLEEP A LITTLE LONGER. UPDATED THAT WE NEED TO REMOVE CATHETER. PATIENT REQUESTS TO HAVE 1 MORE HOUR WITH IT IN AND TO REST FOR 1 MORE HOUR THEN WILL GET UP AND WE CAN TAKE THE CATHETER OUT. WILL BE BACK IN ONCE BREAKFAST GETS HERE. PATIENT DENIES ANY OTHER NEEDS AT THIS TIME.
--- NOTE | 2021-01-12 09:35 | NUR ---
PATIENT ASSESSMENT OMPLETED. PATIENTS BREATH SOUNDS CLEAR. RR EVEN AND UNLABORED. PATIENT STATES "I HAVE A SORE THROAT AND SOME PHLEGM OCCASIOANLLY BUT THATS IT". BOWEL TONES ACTIVE. CAMP CATHETER HAD CLEAR YELLOW URINE. REMOVED PER MD ORDERS. BREAKFAST ORDERED. PATIENT ASSISTED UP TO THE CHAIR WITH THIS RN AND GOWN CHANGED. NO OTHER NEEDS AT THIS TIME. WILL CONTINUE TO CLOSELY MONITOR.
--- NOTE | 2021-01-12 10:00 | NUR ---
Spoke with Cristina. She states she lives in an RV with her spouse and her brother who she states is retarded. Spouse works at the [employer] and drives, she does not drive. She has a walker and a cane. She denies financial issues as they both has SSI and pensions, spouse cont to work. Plans on dc to RV with spouse and brother. Her pcp and neurologist are in [facility]. She has already scheduled appts with both Drs. Plans on dc to home today.
[2021-01-12] MEDS ORDERED: LOPID600 MG PO (10:26)
--- NOTE | 2021-01-12 10:30 | NUR ---
PATIENT ATE 100% OF HER MEAL WITH NO ISSUES. PER MD PATIENT MAY DISCHARGE HOME. WILL START PAPERWORK. PATIENT STATES SHE WILL CALL HER AT 12 TO NOTIFY HIM THAT SHE WILL BE DISCHARGED AND NEEDS A RIDE. NO OTHER NEEDS AT THIS TIME. PATIENT WAS ASSISTED UP TO THE BATHROOM AND VOIDED AND NOW RELAXING IN THE CHAIR. WILL CONTINUE TO CLOSELY MONITOR.
--- NOTE | 2021-01-12 12:15 | NUR ---
PATIENT HERE. REMOVED PATIENTS IV. PHARMACY WAS ALREADY TO TO SEE PATIENT THIS AM. PATIENTS BELONGINGS GATHERED. REVIEWED DISCHARGE PAPERWORK WITH PATIENT AND HER . PATIENT HAS AN APPOINTMENT ON December WITH HER NEUROLOGIST. NO CURRENT MEDICATION CHANGES. EDUCATION FOR JAE SENT WITH PATIENT.
--- NOTE | 2021-01-12 12:35 | NUR ---
PATIENT DISCHARGED WITH HER . ALL BELONGINGS SENT WITH PATIENT. IV DCD PER PROTOCOL. THIS RN WHEELED PATIENT TO THE FRONT VIA WHEELCHAIR WHERE HER MET US WITH THE VEHICLE. NO OTHER QUESTIONS AT THIS TIME.
== END 2021-01-12 12:30 | disposition home or self-care (01) ==
LOC: ED 17:45 → CCU 17:47
PROVIDERS: ADMIT Internal Medicine; ATTEND Internal Medicine
DX: G40.909 Epilepsy, unspecified, not intractable, without status epilepticus (principal); T41.291A Poisoning by other general anesthetics, accidental (unintentional), initial encounter; T42.4X1A Poisoning by benzodiazepines, accidental (unintentional), initial encounter; J96.00 Acute respiratory failure, unspecified whether with hypoxia or hypercapnia; E11.9 Type 2 diabetes mellitus without complications; Z79.82 Long term (current) use of aspirin; Z79.84 Long term (current) use of oral hypoglycemic drugs; Z88.5 Allergy status to narcotic agent; Z91.030 Bee allergy status; Z20.822 Contact with and (suspected) exposure to COVID-19
CPT/HCPCS: 36600; 70450; 71045; 80053; 81001; 82803; 84484; 85025; 93005; 93010; 94002; C9803; J2405; J2704; J3480; J7120; U0003

== ENCOUNTER 2021-03-12 14:04 | Emergency (ER) | payer MEDICARE ==
[~2021-03-12] VITALS: Ht 157.5 cm; Wt 45.8 kg
[~2021-03-12 14:04] MED LIST changes: +LOPID600 MG PO
--- NOTE | 2021-03-13 03:13 | EKG ---
[facility] [address] [facility] [place] [address] \T\ T wave abnormality, consider lateral ischemia Abnormal ECG When compared with ECG of 11-JAN-2021 18:07, ST now depressed in Anterolateral leads T wave inversion now evident in Inferior leads T wave inversion now evident in Lateral leads Confirmed by MARLEN MAX MD ([id number]) on 03/13/2021 3:13:02 AM Electronically Signed By: MARLEN MAX MD 03/13/21 0313 PATIENT NAME: JHON DONNELLY Electrocardiogram DATE OF : 38 PHYSICIAN: MARLEN MAX MD REPORT #: [id number] REPORT IS CONFIDENTIAL AND NOT TO BE RELEASED WITHOUT AUTHORIZATION
== END 2021-03-13 04:11 | disposition home or self-care (01) ==
LOC: ED 14:04
DX: R56.9 Unspecified convulsions (principal); E11.9 Type 2 diabetes mellitus without complications; Z88.5 Allergy status to narcotic agent; Z20.822 Contact with and (suspected) exposure to COVID-19; Z91.030 Bee allergy status; Z79.899 Other long term (current) drug therapy; Z79.82 Long term (current) use of aspirin; Z79.84 Long term (current) use of oral hypoglycemic drugs
CPT/HCPCS: 36415; 70450; 70496; 70498; 71045; 80053; 81001; 85025; 85610; 85730; 93005; 93010; 96374; 96375; 96376; 99284-25; 99285-25; C9803; J1630; J2060; J7030; Q2009; Q9967; U0003

== ENCOUNTER 2021-03-20 15:51 | Emergency (ER) | payer MEDICARE ==
[~2021-03-20] VITALS: Ht 157.5 cm; Wt 45.8 kg
[2021-03-20] MEDS ORDERED: KEPPRA1000 MG PO (20:24)
== END 2021-03-20 21:10 | disposition home or self-care (01) ==
LOC: ED 15:51
DX: R11.0 Nausea (principal); E11.9 Type 2 diabetes mellitus without complications; Z88.5 Allergy status to narcotic agent; Z91.030 Bee allergy status; Z79.899 Other long term (current) drug therapy
CPT/HCPCS: 80053; 81001; 83690; 85025; 96374; 99283-25; J2405

== ENCOUNTER 2021-05-25 13:12 | Emergency (ER) | payer MEDICARE ==
[~2021-05-25] VITALS: Ht 157.5 cm; Wt 45.4 kg
[~2021-05-25 13:12] MED LIST changes: +KEPPRA1000 MG PO
== END 2021-05-25 13:52 | disposition home or self-care (01) ==
LOC: ED 13:12
DX: T63.441A Toxic effect of venom of bees, accidental (unintentional), initial encounter (principal); E11.9 Type 2 diabetes mellitus without complications; Z88.5 Allergy status to narcotic agent; Z91.030 Bee allergy status; Z79.899 Other long term (current) drug therapy; Z79.84 Long term (current) use of oral hypoglycemic drugs
CPT/HCPCS: 99282; Q0163

== ENCOUNTER 2021-10-28 16:42 | Emergency (ER) | payer MEDICARE ==
[~2021-10-28] VITALS: Ht 157.5 cm; Wt 45.4 kg
[2021-10-28] MEDS ORDERED: CEFDINIR300 MG PO (19:09)
== END 2021-10-28 19:30 | disposition home or self-care (01) ==
LOC: ED 16:42
DX: N39.0 Urinary tract infection, site not specified (principal); E11.9 Type 2 diabetes mellitus without complications; Z79.899 Other long term (current) drug therapy; Z88.5 Allergy status to narcotic agent; Z91.030 Bee allergy status
CPT/HCPCS: 51798; 81001; 99284

== ENCOUNTER 2021-11-09 13:28 | Emergency (ER) | payer MEDICARE ==
[~2021-11-09] VITALS: Ht 157.5 cm; Wt 45.4 kg
[~2021-11-09 13:28] MED LIST changes: +CEFDINIR300 MG PO
== END 2021-11-09 19:40 | disposition home or self-care (01) ==
LOC: ED 13:28
DX: R10.30 Lower abdominal pain, unspecified (principal); E11.9 Type 2 diabetes mellitus without complications; Z88.5 Allergy status to narcotic agent; Z91.030 Bee allergy status; Z91.038 Other insect allergy status; Z79.899 Other long term (current) drug therapy; Z79.890 Hormone replacement therapy; Z79.84 Long term (current) use of oral hypoglycemic drugs
CPT/HCPCS: 74177; 80048; 81001; 85025; 96376; 99284-25; J3010; J7040; Q9967

== ENCOUNTER 2022-01-20 17:28 | Emergency (ER) | payer MEDICARE ==
[~2022-01-20] VITALS: Ht 157.5 cm; Wt 45.4 kg
[2022-01-20] MEDS ORDERED: ULTRAM50 MG PO (20:43)
== END 2022-01-20 21:15 | disposition home or self-care (01) ==
LOC: ED 17:28
DX: S39.012A Strain of muscle, fascia and tendon of lower back, initial encounter (principal); E11.9 Type 2 diabetes mellitus without complications; Z88.5 Allergy status to narcotic agent; Z91.030 Bee allergy status; Z79.899 Other long term (current) drug therapy; Z79.84 Long term (current) use of oral hypoglycemic drugs; W01.0XXA Fall on same level from slipping, tripping and stumbling without subsequent striking against object, initial encounter
CPT/HCPCS: 72100; 73522; 81001; 99283-25

== ENCOUNTER 2022-01-23 17:51 | Emergency (ER) | payer MEDICARE ==
[~2022-01-23] VITALS: Ht 157.5 cm; Wt 45.4 kg
[2022-01-23] MEDS ORDERED: HYDROCODON-ACE1 EA10 PO (23:35)
== END 2022-01-23 23:50 | disposition home or self-care (01) ==
LOC: ED 17:51
DX: S32.039A Unspecified fracture of third lumbar vertebra, initial encounter for closed fracture (principal); E11.9 Type 2 diabetes mellitus without complications; Z88.5 Allergy status to narcotic agent; Z91.030 Bee allergy status; Z79.899 Other long term (current) drug therapy; W11.XXXA Fall on and from ladder, initial encounter
CPT/HCPCS: 70450; 72125; 72131; 99283-25

== ENCOUNTER 2022-03-05 18:27 | Emergency (ER) | payer MEDICARE ==
[~2022-03-05] VITALS: Ht 157.5 cm; Wt 50.8 kg
[~2022-03-05 18:27] MED LIST changes: +HYDROCODON-ACE1 EA10 PO
== END 2022-03-05 19:45 | disposition home or self-care (01) ==
LOC: ED 18:27
DX: G89.29 Other chronic pain (principal); M54.50 Low back pain, unspecified; E11.9 Type 2 diabetes mellitus without complications; Z88.5 Allergy status to narcotic agent; Z91.030 Bee allergy status; Z79.899 Other long term (current) drug therapy; Z79.84 Long term (current) use of oral hypoglycemic drugs
CPT/HCPCS: 99283

== ENCOUNTER 2022-11-23 15:04 | Emergency (ER) | payer MEDICARE ==
[~2022-11-23] VITALS: Ht 5.1 cm; Wt 50.8 kg
--- OUTSIDE RECORDS SUMMARY | 2022-11-23 15:06 | XMS ---
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 CRITERIA MET - PDMP CARE PROVIDERS Yair Gleason MD [facility] 10/19/2020-Current PHONE: Unknown SUNITHA FORTE Physician Television Cabinet Finisher 04/26/2019-Current PHONE: [phone] Racheal has no Care Guidelines for this patient. Care History Medical/Surgical 09/13/2019 [facility] - CHW CONTACTED PCP LISTED SUNITHA FORTE-PATIENT HAS NEVER BEEN SEEN BY PROVIDER AND OR OFFICE. - CHW CALLED PATIENT AND LEFT A VOICEMAIL- 04/26/2019 [facility] - PATIENT NEUROLOGIST IS DR PRINCE IN [place], [place]- [phone]. 01/05/2019 [facility] - CHW CALLED DR BELTRE OFFICE- THEY HAVE THE ER NOTES AND ARE WAITING TO HEAR FROM PATIENT. - CHW CONTACTED PATIENT AND PROVIDED DR BELTRE PHONE NUMBER\T\nbsp; AND STATED THEY NEED TO CALL TO SET UP AN APT. PATIENT STATED THEY WOULD DO SO. Maryanne VISIT COUNT (12 MO.) 4 [facility] Orte[facility] TOTAL 4 NOTE: Visits indicate total known visits. ED/UCC VISIT TRACKING (12 MO.) 11/23/2022 15:05 [facility] [place] TYPE: Emergency COMPLAINT: - DIARRHEA 03/05/2022 18:28 [facility] [place] TYPE: Emergency COMPLAINT: - BACK PAIN DIAGNOSES: - Bee allergy status - Low back pain, unspecified - Other filler leaf cutter long (current) drug therapy - Type 2 diabetes mellitus without complications - Other chronic pain - Allergy status to narcotic agent - rn long term care (current) use of oral hypoglycemic drugs 01/23/2022 17:52 [facility] [place] TYPE: Emergency COMPLAINT: - BACK PAIN DIAGNOSES: - Other filler leaf cutter long (current) drug therapy - Fall on and from ladder, initial encounter - Allergy status to narcotic agent - Type 2 diabetes mellitus without complications - Unspecified fracture of third lumbar vertebra, initial encounter for closed fracture - Cervicalgia - Bee allergy status 01/20/2022 17:28 [facility] [place] TYPE: Emergency COMPLAINT: - FALL,BACK PAIN DIAGNOSES: - rn long term care (current) use of oral hypoglycemic drugs - LOW BACK PAIN, UNSPECIFIED - Allergy status to narcotic agent - Fall on same level from slipping, tripping and stumbling without subsequent striking against object, initial encounter - Other filler leaf cutter long (current) drug therapy - Bee allergy status - Low back pain, unspecified - Strain of muscle, fascia and tendon of lower back, initial encounter - Type 2 diabetes mellitus without complications INPATIENT VISIT TRACKING (12 MO.) No inpatient visits to display in this time frame [email or web address]
== END 2022-11-23 17:58 | disposition home or self-care (01) ==
LOC: ED 15:04
DX: K52.9 Noninfective gastroenteritis and colitis, unspecified (principal); E11.9 Type 2 diabetes mellitus without complications; Z88.5 Allergy status to narcotic agent; Z91.030 Bee allergy status; Z79.899 Other long term (current) drug therapy; Z79.84 Long term (current) use of oral hypoglycemic drugs
CPT/HCPCS: 36415; 80053; 85025; 99284; J7030

== ENCOUNTER 2022-12-03 18:50 | Emergency (ER) | payer MEDICARE ==
[~2022-12-03] VITALS: Ht 157.5 cm; Wt 50.8 kg
--- OUTSIDE RECORDS SUMMARY | 2022-12-03 18:52 | XMS ---
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 Care History Medical/Surgical 09/13/2019 [facility] - CHW CONTACTED PCP LISTED SUNITHA FORTE-PATIENT HAS NEVER BEEN SEEN BY PROVIDER AND OR OFFICE. - CHW CALLED PATIENT AND LEFT A VOICEMAIL- 04/26/2019 [facility] - PATIENT NEUROLOGIST IS DR PRINCE IN [place], [place]- [phone]. 01/05/2019 [facility] - CHW CALLED DR BELTRE OFFICE- THEY HAVE THE ER NOTES AND ARE WAITING TO HEAR FROM PATIENT. - CHW CONTACTED PATIENT AND PROVIDED DR BELTRE PHONE NUMBER\T\nbsp; AND STATED THEY NEED TO CALL TO SET UP AN APT. PATIENT STATED THEY WOULD DO SO. Maryanne VISIT COUNT (12 MO.) 5 JARROD Ortega TOTAL 5 NOTE: Visits indicate total known visits. 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 - Type 2 diabetes mellitus without complications - Other chronic pain - Allergy status to narcotic agent - prison (current) use of oral hypoglycemic drugs - Bee allergy status - Low back pain, unspecified 01/23/2022 17:52 [facility] [place] TYPE: Emergency COMPLAINT: - BACK PAIN DIAGNOSES: - Allergy status to narcotic agent - Type 2 diabetes mellitus without complications - Unspecified fracture of third lumbar vertebra, initial encounter for closed fracture - Cervicalgia - Bee allergy status - Other care home (current) drug therapy - Fall on and from ladder, initial encounter 01/20/2022 17:[address] [facility] [place] TYPE: Emergency COMPLAINT: - FALL,BACK PAIN DIAGNOSES: - Allergy status to narcotic agent - Fall on same level from slipping, tripping and stumbling without subsequent striking against object, initial encounter - Other care home (current) drug therapy - Bee allergy status - Low back pain, unspecified - Strain of muscle, fascia and tendon of lower back, initial encounter - Type 2 diabetes mellitus without complications - prison (current) use of oral hypoglycemic drugs - LOW BACK PAIN, UNSPECIFIED INPATIENT VISIT TRACKING (12 MO.) No inpatient visits to display in this time frame [email or web address]
[2022-12-03] MEDS ORDERED: LEVOTHYROXINE88 MCG PO (19:06)
[2022-12-03] MEDS ORDERED: OMEPRAZOLE20 MG PO (19:06)
[2022-12-03] MEDS ORDERED: TOPIRAMATE50 MG PO (19:07)
== END 2022-12-03 19:45 | disposition home or self-care (01) ==
LOC: ED 18:50
DX: J06.9 Acute upper respiratory infection, unspecified (principal); E11.9 Type 2 diabetes mellitus without complications; Z88.5 Allergy status to narcotic agent; Z91.030 Bee allergy status; Z79.899 Other long term (current) drug therapy
CPT/HCPCS: 99283

== ENCOUNTER 2024-04-24 00:17 | Emergency (ER) | payer OTHER, MEDICARE ==
[~2024-04-24] VITALS: Ht 157.5 cm; Wt 46.9 kg
[~2024-04-24 00:17] MED LIST changes: +AMOX TR-K CLV1 EAC1 PO; +TOPIRAMATE50 MG PO
[2024-04-24 00:57] VITALS: BP 152/77
== END 2024-04-24 00:57 | disposition home or self-care (01) ==
LOC: ED 00:17
DX: S61.452A Open bite of left hand, initial encounter (principal); E11.9 Type 2 diabetes mellitus without complications; W54.0XXA Bitten by dog, initial encounter; Z88.5 Allergy status to narcotic agent; Z91.030 Bee allergy status; Z79.890 Hormone replacement therapy; Z79.899 Other long term (current) drug therapy
CPT/HCPCS: 99283

== ENCOUNTER 2025-02-21 12:17 | Emergency (ER) | payer MEDICARE ==
[~2025-02-21] VITALS: Ht 157.5 cm; Wt 46.0 kg
[2025-02-21] MEDS ORDERED: SPIRONOLACTONE25 MG PO (12:34)
[2025-02-21] MEDS ORDERED: LEVOTHYROXINE50 MCG PO (12:35)
[2025-02-21] MEDS ORDERED: METFORMIN HCL500 MG PO (12:35)
[2025-02-21] MEDS ORDERED: TOPIRAMATE100 MG PO (12:35)
[2025-02-21] MEDS ORDERED: ANTIFUNGAL113 GM TOP (12:57)
[2025-02-21 13:13] VITALS: BP 156/78
== END 2025-02-21 13:13 | disposition home or self-care (01) ==
LOC: ED 12:17
DX: L30.4 Erythema intertrigo (principal); B37.2 Candidiasis of skin and nail; E11.9 Type 2 diabetes mellitus without complications; Z88.5 Allergy status to narcotic agent; Z91.030 Bee allergy status; Z79.899 Other long term (current) drug therapy; Z79.890 Hormone replacement therapy; Z79.84 Long term (current) use of oral hypoglycemic drugs
CPT/HCPCS: 99282

== ENCOUNTER 2025-05-21 07:14 | Inpatient (IN) | payer MEDICARE ==
[~2025-05-21] VITALS: Ht 157.5 cm; Wt 49.0 kg
[~2025-05-21 07:14] MED LIST changes: +ANTIFUNGAL113 GM TOP; +LEVOTHYROXINE50 MCG PO; +SPIRONOLACTONE25 MG PO; +TOPIRAMATE100 MG PO
[2025-05-21] MEDS ORDERED: LACTATED RINGER'S 1,000 ML IV ONE (07:30)
[2025-05-21 07:37] LABS: BASOPHILS 0.5 % (0.1-1.2); EOSINOPHILS 0.2 % (0.7-5.8); LYMPHOCYTES 8.4 % (19.3-51.7); MCH 31.8 PG (25.6-32.2); MCHC 33.4 g/dL (32.2-35.5); MCV 95.0 fL (79.4-94.8); MONOCYTES 6.9 % (4.7-12.5); NEUTROPHILS 82.7 % (34.0-71.1); RBC 4.44 M/uL (3.93-5.22)
[2025-05-21] MEDS ORDERED: METOPROLOL TART25 MG PO (07:43)
[2025-05-21 07:44] LABS: BLOOD/HGB, URINE NEGATIVE (Negative); KETONE, URINE >=80 (Negative); LEUK ESTERASE, URINE SMALL (negative); NITRITE, URINE NEGATIVE (negative)
[2025-05-21] MEDS ORDERED: GEMFIBROZIL600 MG PO (07:44)
[2025-05-21] MEDS ORDERED: LOVASTATIN20 MG PO (07:44)
[2025-05-21] MEDS ORDERED: POTASSIUM CHLO10 ME1 PO (07:45)
[2025-05-21] MEDS ORDERED: FOLIC ACID1 MG PO (07:45)
[2025-05-21 07:51] LABS: BACTERIA, URINE 1+ /hpf (negative); CASTS, URINE NONE SEEN \\lpf; CRYSTALS, URINE NONE SEEN (0-1+); REFLEX CULTURE, URINE Yes (No)
[2025-05-21 07:53] LABS: ALCOHOL, MEDICAL <3 ng/dL (<3); ALT (SGPT) 13 U/L (14-59); AST (SGOT) 21 U/L (15-37); GLOMERULAR FILTRATION RATE,EST 89 mL/min (>60); PROTEIN, TOTAL 7.5 g/dL (6.4-8.2); UREA NITROGEN 13 mg/dL (7-18)
[2025-05-21] MEDS ORDERED: LIDOCAINE 2% VISCOUS 6 ML SYR TOP ONE (08:30)
[2025-05-21] MEDS ORDERED: GLUCAGON,HUMAN RECOMBINANT 1 MG/ML VIAL SUB-Q PRN (12:00)
[2025-05-21] MEDS ORDERED: DEXTROSE 5% 1,000 ML IV PRN (12:00)
[2025-05-21] MEDS ORDERED: PHARMACY RENAL DOSE ADJUSTMENT 1 DOSE MISC PO SCH (12:00)
[2025-05-21] MEDS ORDERED: IBLOOD GLUCOSE TEST STRIP 1 EA TEST VI SCH (12:00)
[2025-05-21] MEDS ORDERED: DEXTROSE 50% 50 ML SYR IV PRN ×2 (12:00)
[2025-05-21] MEDS ORDERED: ACETAMINOPHEN 325 MG TAB PO PRN (12:00)
[2025-05-21] MEDS ORDERED: SODIUM CHLORIDE 0.9% 1,000 ML IV SCH (12:00)
[2025-05-21] MEDS ORDERED: IBLOOD GLUCOSE TEST STRIP 1 EA TEST XX PRN (12:00)
[2025-05-21] MEDS ORDERED: INSULIN LISPRO 100 UNIT/ML ML SUB-Q SCH (12:00)
--- NOTE | 2025-05-21 12:04 | EKG ---
[facility] [address] [facility] [place] [address] Signed Poor data quality, interpretation may be adversely affected Sinus rhythm with short AL Otherwise normal ECG When compared with ECG of 13-MAR-2021 15:05, No significant change was found Confirmed by Jerome Mcguire MD () on 05/21/2025 12:04:44 PM Electronically Signed By: JEROME MCGUIRE MD 05/21/25 1204 PATIENT NAME: JHON DONNELLY Electrocardiogram DATE OF : 38 PHYSICIAN: JEROME MCGUIRE MD REPORT #: [id number] REPORT IS CONFIDENTIAL AND NOT TO BE RELEASED WITHOUT AUTHORIZATION
[2025-05-21] MEDS ORDERED: levETIRAcetam 500 MG TAB PO SCH (12:17)
[2025-05-21] MEDS ORDERED: CLOTRIMAZOLE 1% 30 GM TUBE TOP SCH (12:18)
[2025-05-21] MEDS ORDERED: PANTOPRAZOLE SODIUM 40 MG TABEC PO SCH (12:18)
[2025-05-21] MEDS ORDERED: LEVOTHYROXINE SODIUM 50 MCG TAB PO SCH (12:19)
--- NOTE | 2025-05-21 13:05 | NUR ---
PT ARRIVED TO MED/SURGE FLOOR VIA STRETCHER, PT REPORT RECIEVED FROM ARIANA MENON. PT ORIENTED TO ROOM AND FLOOR, PT IS ORIENTED TO SELF AND FAMILY ONLY AT THIS TIME. PT HAS CAMP CATH IN PLACE, WHICH WAS PLACED IN THE ER, PT URINE CLEAR/YELLOW. PT VITALS STABLE AND PT ON RA. PT IS VERY HARD OF HEARING AND COMMUNICATES WITH WHITE BOARD, BUT IS MISSING HER GLASSES. PT HAS CALL LIGHT IN REACH AND CURTAIN OPEN FOR PT SAFETY ALONG WITH BED ALARM ON.
[2025-05-21 13:27] VITALS: BP 146/81
[2025-05-21 16:26] VITALS: BP 146/81
[2025-05-21 18:00] VITALS: BP 133/55
--- NOTE | 2025-05-21 18:01 | NUR ---
PT SITTING UP IN BED WITH EYES CLOSED CHEST RISE EQUAL BILAT. PT HAS CALL LIGHT IN REACH AT THIS TIME IF NEEDED. BED ALARM ON AND CURTAIN OPEN FOR PT SAFETY AT THIS TIME.
--- NOTE | 2025-05-21 18:36 | NUR ---
PT LAYING IN BED, PT ALERT TO SELF ONLY, PT REPOSITIONED IN BED AT THIS TIME AND TOLERATED WELL. PT REDNESS UNDER BREASTS IS STILL PRESENT AND A PILLOW CASE WAS LAYED DOWN TO REDUCE SKIN TO SKIN CONTACT TO DECREASE SKIN BREAKDOWN. PT HAS CALL LIGHT IN REACH WITH BED ALARM ACTIVE AND PT CURTAIN OPEN FOR PT SAFETY.
[2025-05-21 18:39] VITALS: BP 133/55
--- NOTE | 2025-05-21 19:37 | NUR ---
REPORT RECEIVED FROM DAY SHIFT RN. PT LYING IN BED ALERT AND EATING DINNER WITHOUT DIFFICULTY. DENIES NEEDS. AT BEDSIDE. CALL LIGHT IN REACH. BED ALARM FOR SAFETY. WHITE BOARD UPDATED.
[2025-05-21 20:31] VITALS: BP 123/55
[2025-05-21 20:45] VITALS: BP 123/55
--- NOTE | 2025-05-21 21:15 | NUR ---
EVENING ASSESSMENT COMPLETE. SCHEDULED MEDS ADMIN PER EMAR. PT DENIES PAIN OR NAUSEA. UP TO BSC WITH FWW AND 1PA TO HAVE SMALL SOFT BM. STAFF ASSIST WITH MANNY CARE. BACK TO BED, DEVONTE WELL. SEIZURE PADS IN PLACE. WARM BLANKET PROVIDED. CAMP PATENT WITH QS YELLOW URINE. PT DENIES QUESTIONS OR CONCERNS. CALL LIGHT IN REACH. BED ALARM FOR SAFETY.
--- NOTE | 2025-05-21 23:01 | NUR ---
PT RESTING IN BED WITH EYES CLOSED. RESPIRATIONS EVEN. CALL LIGHT IN REACH. BED ALARM FOR SAFETY.
[2025-05-22] VITALS (11 sets, daily range): BP systolic 109–142; BP diastolic 43–82
--- NOTE | 2025-05-22 00:24 | NUR ---
PT LYING IN BED ON LEFT SIDE RESTING WITH EYES CLOSED. RESPIRATIONS EVEN. CALL LIGHT IN REACH. BED ALARM FOR SAFETY.
--- NOTE | 2025-05-22 01:20 | NUR ---
PATIENT IS LAYING IN BED. VITAL SIGNS AND I&OS WERE DONE. CATHETER WAS EMPTIED AND CLEANED WITH A ALCOHOL SWAB. A WARM BLANKET WAS PROVIDED AND WATER WAS REFILLED. PATIENTS CALL LIGHT IS WITHIN REACH AND NO FURTHER NEEDS AT THIS TIME.
--- NOTE | 2025-05-22 03:10 | NUR ---
PT RESTING IN BED WITH EYES CLOSED. RESPIRATIONS EVEN. CALL LIGHT IN REACH. BED ALARM FOR SAFETY.
--- NOTE | 2025-05-22 05:14 | NUR ---
LAB IN FOR MORNING DRAW. VS AND I&O OBTAINED. SIPS OF WATE PROVIDED. PT DENIES NEEDS. CALL LIGHT IN REACH. BED ALARM FOR SAFETY.
[2025-05-22 05:30] LABS: BASOPHILS 0.5 % (0.1-1.2); EOSINOPHILS 0.6 % (0.7-5.8); LYMPHOCYTES 19.4 % (19.3-51.7); MCH 32.4 PG (25.6-32.2); MCHC 34.2 g/dL (32.2-35.5); MCV 94.9 fL (79.4-94.8); MONOCYTES 10.4 % (4.7-12.5); NEUTROPHILS 68.4 % (34.0-71.1); RBC 3.73 M/uL (3.93-5.22)
[2025-05-22 05:42] LABS: ALT (SGPT) 14.0 U/L (14-59); AST (SGOT) 18.0 U/L (15-37); GLOMERULAR FILTRATION RATE,EST 100.0 mL/min (>60); PHOSPHORUS, INORGANIC 3.0 mg/dL (2.5-4.9); PROTEIN, TOTAL 5.4 g/dL (6.4-8.2); UREA NITROGEN 1.0 mg/dL (7-18)
--- NOTE | 2025-05-22 07:41 | NUR ---
PT SITTING UP IN BED, PT HAS IN ROOM, PT HAS NO CURRENT CONCERNS AT THIS TIME, PT BED ALARM ON FOR PT SAFETY WITH SEIZURE PADS IN PLACE. PT CALL LIGHT IN REACH.
[2025-05-22] MEDS ORDERED: LACTATED RINGER'S 1,000 ML IV SCH (07:45)
[2025-05-22] MEDS ORDERED: ENOXAPARIN SODIUM 40 MG/0.4 ML SYR SUB-Q SCH (09:00)
[2025-05-22] MEDS ORDERED: POTASSIUM CHLORIDE 40 MEQ,LIDOCAINE HCL 1% 40 MG in DEXTROSE 5% 250 ML IV ONE (09:00)
[2025-05-22] MEDS ORDERED: MAGNESIUM SULFATE 2 GM/50 ML BAG IV ONE (09:00)
--- NOTE | 2025-05-22 09:13 | NUR ---
HOURLY ROUNDING. BOARD HAS BEEN UPDATED AND CALL LIGHT HAS BEEN PLACED WITHIN REACH. CAMP EMPTIED
--- NOTE | 2025-05-22 10:30 | NUR ---
PT LAYING IN BED WITH EYES CLOSED CHEST RISE EQUAL BILAT. PT HAS IV INFUSIONS RUNNING AT THIS TIME, PT HAS CALL LIGHT IN REACH IF NEEDED.
--- NOTE | 2025-05-22 11:24 | NUR ---
PT SITTING UP IN BED WITH EYES CLOSED CHEST RISE EQUAL BILAT. PT EASLIY AROUSABLE PT HAS NO NEEDS AND CALL LIGHT IN REACH AT THIS TIME.
--- NOTE | 2025-05-22 13:26 | NUR ---
PT SITTING UP IN BED AT THIS TIME WITH ROUTE SALESPERSON IN ROOM, PT TOLERATED LUNCH WELL AND HAS NO CURRENT CONCERNS AT THIS TIME CALL LIGHT IN REACH AT THIS TIME.
--- NOTE | 2025-05-22 14:58 | NUR ---
PT SITTING UP IN BED, PT DENIES PAIN AT THIS TIME AND HAS CALL LIGHT IN REACH, PT URINE IS CLEAR/YELLOW WITH OUTPUT WNL AT THIS TIME.
--- NOTE | 2025-05-22 16:00 | NUR ---
PT SITTING UP IN BED WITH EYES CLOSED CHEST RISE EQUAL BILAT. PT EASLY AROUSABLE TO VOICE AND THIS RN USED POCKET TALKER DEVICE TO SPEAK WITH PT. PT DECLINED ANY NEEDS AND HAS CALL LIGHT IN REACH AT THIS TIME.
--- NOTE | 2025-05-22 17:01 | NUR ---
PT SITTING UP IN BED EATING DINNER AT THIS TIME. PT HAS NO CURRENT NEEDS AT THIS TIME CALL LIGHT IN REACH.
--- NOTE | 2025-05-22 17:52 | NUR ---
HOURLY ROUNDING. PATIENT LAYING IN BED, NO REQUEST FROM PATIENT. CALL LIGHT HAS BEEN PLACED WITHIN REACH
--- NOTE | 2025-05-22 18:19 | NUR ---
PT SITTING UP IN BED WITH AT BED SIDE. PT DENIES ANY NEEDS AT THIS TIME AND TOLERATED DINNER WELL. PT HAS CALL LIGHT IN REACH IF NEEDED.
--- NOTE | 2025-05-22 19:22 | NUR ---
REPORT RECEIVED FROM DAY SHIFT RN. PT LYING IN BED RESTING WITH EYES CLOSED. RESPIRATIONS EVEN. WHITE BOARD UPDATED. CALL LIGHT IN REACH. BED ALARM FOR SAFETY.
--- NOTE | 2025-05-22 20:35 | NUR ---
EVENING ASSESSMENT COMPLETE. SCHEDULED MEDS ADMIN PER EMAR. PT C/O BACK PAIN DURING CARES. UNABLE TO GIVE PAIN RAITING. PRN FOR PAIN ADMIN PER EMAR. 2PA TO REPOSITION IN BED. CAMP PATENT WITH CLEAR YELLOW URINE. VS AND I&O OBTAINED. NO FURTHER NEEDS. CALL LIGHT IN REACH. BED ALARM IN PLACE.
--- NOTE | 2025-05-22 21:45 | NUR ---
PT HEARD SHOUTING FOR HELP FROM THE RN STATION. SPONSORSHIP COORDINATOR TO ROOM. PT STATES THAT SHE FEELS LIKE SHE NEEDS TO HAVE A BM. PT UP TO BSC WITH 1PA, TOLERATED WELL. PT HAD A SMEAR BM. ASSISTED BACK TO BED. PT DENIES FURTHER NEEDS AT THIS TIME. BED ALARM REACTIVATED. CALL LIGHT IN REACH. ROOM IN VIEW OF RN STATION WITH CURTAIN OPEN.
--- NOTE | 2025-05-22 22:51 | NUR ---
PT RESTING IN BED WITH EYES CLOSED. RESPIRATIONS EVEN. CALL LIGHT IN REACH. BED ALARM FOR SAFETY.
--- NOTE | 2025-05-22 23:58 | NUR ---
PT RESTING IN BED WITH EYES CLOSED. RESPIRATIONS EVEN. CALL LIGHT IN REACH. BED ALARM IN PLACE.
[2025-05-23] VITALS (9 sets, daily range): BP systolic 119–153; BP diastolic 57–69
--- NOTE | 2025-05-23 01:55 | NUR ---
PT IN BED LYING ON RIGHT SIDE. EYES CLOSED. RESPIRATIONS EVEN AND UNLABORED. BED ALARM IN USE. CALL LIGHT IN REACH.
--- NOTE | 2025-05-23 04:00 | NUR ---
pt repositioned self to supine position in bed. eyes closed. respirations even. bed alarm in place. call light in reach.
[2025-05-23 05:57] LABS: BASOPHILS 0.6 % (0.1-1.2); EOSINOPHILS 1.2 % (0.7-5.8); LYMPHOCYTES 21.4 % (19.3-51.7); MCH 32.3 PG (25.6-32.2); MCHC 34.4 g/dL (32.2-35.5); MCV 93.8 fL (79.4-94.8); MONOCYTES 10.0 % (4.7-12.5); NEUTROPHILS 66.3 % (34.0-71.1); RBC 3.90 M/uL (3.93-5.22)
--- NOTE | 2025-05-23 06:08 | NUR ---
LAB IN ROOM FOR MORNING DRAW. VS AND I&O OBTAINED. PT C/O BACK PAIN. PRN FOR PAIN ADMIN PER EMAR. ASSISTED TO REPOSITION FOR COMFORT. WARM BLANKETS AND COFFEE PROVIDED. NO FURTHER NEEDS. CALL LIGHT IN REACH. BED ALARM FOR SAFETY.
[2025-05-23 06:10] LABS: ALT (SGPT) 12.0 U/L (14-59); AST (SGOT) 19.0 U/L (15-37); GLOMERULAR FILTRATION RATE,EST 104.0 mL/min (>60); PROTEIN, TOTAL 6.0 g/dL (6.4-8.2); UREA NITROGEN 2.0 mg/dL (7-18)
--- NOTE | 2025-05-23 07:15 | NUR ---
PT SITTING UP IN BED WITH EYES CLOSED CHEST RISE EQUAL BILAT. PT HAD NO ACUTE EVENTS IN THE NIGHT, BUT DOES CONTINUE TO BE CONFUSED. PT HAS CALL LIGHT IN REACH CURRENTLY AND CURTAIN OPEN FOR PT SAFETY.
--- NOTE | 2025-05-23 08:16 | NUR ---
IN TO ASSIST PATIENT TO BSC. PATIENT UP TO BSC THEN TO CHAIR, 1PA FWW. WARM BLANKETS GIVEN. PATIENT SET UP WITH BREAKFAST. CHAIR ALARM ON. CALL LIGHT IN REACH. NO FURTHER NEEDS AT THIS TIME.
--- NOTE | 2025-05-23 09:13 | NUR ---
HOURLY ROUNDING. DID CAMP CARE ON THE PATIENT AND EMPTIED OUT HER CAMP. FILLED PATIENT WATER CUP, BOARD HAS BEEN UPDATED. NO REQUEST FROM PATIENT AT THIS TIME
--- NOTE | 2025-05-23 10:42 | NUR ---
CHART SENT TO [facility]. REAL GALINDO.
--- NOTE | 2025-05-23 10:50 | NUR ---
INTO PATIENT ROOM. PATIENT HAVING DIFFCULTY HEARING ME AND STATES "CAN YOU JUST CALL MY ." DELMA CALLED. PERSONAL HEALTH INFORMATION REVIEWED. PATIENT LIVES WITH IN AN RV. 3 STEPS INTO THE RV SHE DOES HAVE DIFFCULTY DOING THEM. DOES USE A CANE AT BASELINE. PATIENT DOES NOT USE OXYGEN OR CPAP. DOES NOT DRIVE. DENIES DIFFCULTY PAYING UTILITIES OR OBTAING FOOD. TALKED WITH PATIENT ABOUT SNF THEY ARE AGREEABLE. ALSO GAVE A CAREGIVERS PHAMPLET TO HIM WITH NUMBERS TO FIND PAID CARE[facility]IVERS AND THE NUMBER FOR [facility] FOR AFTER SNF IF THEY STILL NEED ASSISTANCE. NO FUTHER CM NEEDS AT THIS TIME.
--- NOTE | 2025-05-23 11:10 | NUR ---
UR CLINICAL REVIEW: 2 MN FOR [facility] NET STRINGER MEETS INPT CRITERIA FOR INPT FOR UTI WITH NEED FOR IV ABX AND MONITORING MEDICARE INPT 05/21/25 @ 1156 ORDER MATCHES REG NO AUTH REQUIRED PER MEDICARE GUIDELINES DISCHARGE TO SNF PENDING FOR PT/OT
--- NOTE | 2025-05-23 11:41 | NUR ---
PT SKIN CARE COMPLETED WITH ARIANA LYLE. PT SITTING UP IN CHAIR AT THIS TIME WITH NO CURRENT CONCERNS. PT CAMP CATH HAS BEEN DC'D AND BRIEFS PLACED PT EDUCATED TO USE THE CALL LIGHT IF THEY NEED TO VOID. PT CALL LIGHT IN REACH.
--- NOTE | 2025-05-23 12:35 | NUR ---
PT USED BSC AND PT VOIDED POST REMOVAL OF CAMP CATH PT VOIDED 100ML OF CLEAR YELLOW URINE. PT BACK INTO CHAIR WITH SITTER ALARM ACTIVE AND CALL LIGHT IN REACH AT THIS TIME.
--- NOTE | 2025-05-23 12:59 | NUR ---
HOURLY ROUNDING. PATIENT SITTING IN RECLINER CHAIR, SHE SAYS SHE'S DOING WELL. NO REQUEST FROM PATIENT AT THIS TIME. CALL LIGHT HAS BEEN PLACED WITHIN REACH
--- NOTE | 2025-05-23 13:57 | NUR ---
PT HAS VOIDED X3 AFTER REMOVAL OF CAMP CATH. PT TOLERATING WELL AND HAS NO CURRENT CONCERNS AT THIS TIME. PT URINE IS CLEAR/YELLOW.
--- NOTE | 2025-05-23 14:36 | NUR ---
PATIENT HAS BEEN ACCEPTED TO [facility]. PENDING BED AVAILABILITY
--- NOTE | 2025-05-23 16:01 | NUR ---
PT AMBULATED TO BSC 1PA, PT TOLERATED WELL AND VOIDED CLEAR YELLOW URINE, PT HAS NO OTHER CONCERNS AND CALL LIGHT IN REACH AT THIS TIME.
--- NOTE | 2025-05-23 16:30 | NUR ---
PT USED CALL LIGHT TO EXPRESS NEED TO USE THE BATHROOM. PT CURRENTLY IN ROOM WITH DIRECTOR PROCESS IMPROVEMENT USING THE BSC. PT HAS CALL LIGHT IN REACH AT THIS TIME.
--- NOTE | 2025-05-23 17:31 | NUR ---
PT SITTING UP IN CHAIR AT THIS TIME, PT IS CURRENTLY EATING DINNER AND HAS NO CURRENT NEEDS AT THIS TIME. PT DID ASK FOR A MILK WHICH WAS GIVEN PT HAS CALL LIGHT IN REACH AT THIS TIME.
--- NOTE | 2025-05-23 17:59 | NUR ---
HOURLY ROUNDING. PATIENT FINISHED DINNER, SHE ENJOYED DINNER. NO REQUEST FROM PATIENT AT THIS TIME. PATIENT APPEARS A BIT CONFUSED AT TIMES SAYING "THERES SOMEONE WAITING AT THE DOOR"
--- NOTE | 2025-05-23 18:11 | NUR ---
PT SITTING UP IN CHAIR AT THIS TIME WITH SITTER ALARM IN PLACE, PT ATE DINNER AND TOLERATED WELL, PT DENIES PAIN AT THIS TIME AND HAS NO CURRENT NEEDS, CALL LIGHT IN REACH AND CURTAIN OPEN FOR PT SAFETY.
--- NOTE | 2025-05-23 19:26 | NUR ---
REPORT RECEIVED FROM DAY SHIFT RN. PT SITTING IN RECLINER WATCHING TV. DENIES NEEDS. WHITE BOARD UPDATED. CALL LIGHT IN REACH. PT IN VIEW OF NURSES STATION.
--- NOTE | 2025-05-23 20:02 | NUR ---
1 PA. UP TO BEDSIDE COMMODE.PATIENT DID SELF MANNY CARE. BACK TO CHAIR. VOIDED 200ML CLEAR LIGHT YELLOW URINE. PATIENT STATED "MORE COMFORTABLE IN CHAIR AND SLEEP HERE". CHAIR ALARM ON. CALL LIGHT IN REACH.
--- NOTE | 2025-05-23 21:33 | NUR ---
PT UP TO BSC WITH COMMERCIAL LOAN ADMINISTRATOR ASSIST. BACK TO RECLINER PER REQUEST. EVENING ASSESSMENT COMPLETE. SCHEDULED MEDS ADMIN PER EMAR. PRN FOR PAIN ADMIN FOR C/O BACK PAIN. PT ALERT AND ORIENTED TO SELF. VS AND I&O OBTAINED. PT DENIES FURTHER NEEDS. CALL LIGHT IN REACH. CHAIR ALARM FOR SAFETY.
--- NOTE | 2025-05-24 00:09 | NUR ---
PT RESTING WITH EYES CLOSED. RESPIRATIONS EVEN. ALARM IN PLACE. CALL LIGHT IN REACH.
--- NOTE | 2025-05-24 00:36 | NUR ---
PT CALLING OUT. IN ROOM TO ASSIST TO BSC WITH FWW TO VOID 25O ML CLEAR YELLOW URINE. STAFF ASSIST WITH MANNY CARE. BACK TO BED. GAIT STEADY. REPOSITIONED ON RIGHT SIDE WITH PILLOWS. NO FURTHER NEEDS. BED ALARM IN PLACE. CALL LIGHT IN REACH.
--- NOTE | 2025-05-24 02:31 | NUR ---
PT UP TO BSC AND YARD CRANE OPERATOR ASSIST TO VOID. BACK TO BED, DEVONTE WELL. PT LYING ON RIGHT SIDE WITH EYES CLOSED. BED ALARM IN PLACE. CALL LIGHT IN REACH.
--- NOTE | 2025-05-24 04:02 | NUR ---
PT LYING IN BED RESTING WITH EYES CLOSED. RESPIRATIONS EVEN. CALL LIGHT IN REACH.
--- NOTE | 2025-05-24 04:40 | NUR ---
PATIENT UP TO BEDSIDE COMMODE 1 PA USING WALKER TO VOID. PATIENT TOLERATED WELL. PATIENT IS BACK IN BED. V/S AND I&O'S COMPLETED. NU FURTHER NEEDS AT THIS TIME. BED ALARM ON FOR SAFETY.
[2025-05-24 04:41] VITALS: BP 146/63
--- NOTE | 2025-05-24 05:34 | NUR ---
LAB IN FOR MORNING DRAW. PT UP TO BSC WITH FWW AND SBA TO VOID. GAIT STEADY. BACK TO BED, DEVONTE WELL. IVF INFUSING WNL. SIPS OF WATER PROVIDED. ASSISTED PT TO REPOSITION TO LEFT SIDE WITH PILLOWS. NO FURTHER NEEDS. CALL LIGHT IN REACH. BED ALARM FOR SAFETY.
[2025-05-24 05:43] LABS: ALT (SGPT) 16.0 U/L (14-59); AST (SGOT) 19.0 U/L (15-37); GLOMERULAR FILTRATION RATE,EST 104.0 mL/min (>60); PROTEIN, TOTAL 6.1 g/dL (6.4-8.2); UREA NITROGEN 2.0 mg/dL (7-18)
[2025-05-24 05:44] LABS: BASOPHILS 0.7 % (0.1-1.2); EOSINOPHILS 1.8 % (0.7-5.8); LYMPHOCYTES 29.5 % (19.3-51.7); MCH 31.9 PG (25.6-32.2); MCHC 34.7 g/dL (32.2-35.5); MCV 91.8 fL (79.4-94.8); MONOCYTES 11.1 % (4.7-12.5); NEUTROPHILS 56.0 % (34.0-71.1); RBC 4.14 M/uL (3.93-5.22)
--- NOTE | 2025-05-24 07:34 | NUR ---
PT AWAKE AND INTERACTIVE AT TIME OF SHIFT REPORT, ASSISTED UP TO THE CHAIR. FRESH H20 AND NEEDED ITEMS TO CHAIR SIDE NO C/O OR REQUESTS
[2025-05-24] MEDS ORDERED: POTASSIUM BICARBONATE/CIT AC 20 MEQ TABEF PO ONE (08:30)
--- NOTE | 2025-05-24 08:45 | NUR ---
PT SITTING UP IN THE CHAIR SELF FEEDING BREAKFAST DENIES NEED OF OTHER ITEMS. CALL LIGHT IN LAP PT ASSISTED TO REPOSITION
[2025-05-24 09:03] VITALS: BP 125/58
--- NOTE | 2025-05-24 09:40 | NUR ---
PT REQUESTS UP TO TOILET PASSES GAS ONLY RETURNS TO SITTING IN THE CHAIR. CALL LIGHT IN LAP.
[2025-05-24 10:15] VITALS: BP 125/58
--- NOTE | 2025-05-24 10:42 | NUR ---
PT CONTINUES UP IN THE CHAIR VISITOR IS PRESENT USING HEARING DEVICE PROVIDED TO COMMUNICATE
--- NOTE | 2025-05-24 10:49 | NUR ---
VISITED [facility]. PT APPEARED TO BE SLEEPING. DID NOT DISTURB. PROVIDED PRAYER.
--- NOTE | 2025-05-24 10:54 | NUR ---
PATIENT AND SPOUSE DISCUSSED DC TO [facility] TODAY. WILL PLAN TO SEND VIA WHEELCHAIR VAN VS TAXI TO [facility]. UPDATED LEORIA AT [facility] THAT PATIENT IS MEDICALLY READY TO DC TODAY.
--- NOTE | 2025-05-24 11:00 | NUR ---
SPOKE WITH CHIARA AT [facility]. PLAN FOR DC TO FACILITY TODAY.
--- NOTE | 2025-05-24 11:37 | NUR ---
WHEELCHAIR VAN SCHEDULED FOR 2:15 THIS AFTERNOON. CHIARA AT [facility] UPDATED.
--- NOTE | 2025-05-24 12:57 | NUR ---
PT EATS NOON MEAL REQUESTS A SALAD WELL. CONTINUES UP IN THE CHAIR IS TO TRANSPORT AT 1430
== END 2025-05-24 14:05 | DRG 872 ==
LOC: ED 07:14 → MS 12:14
PROVIDERS: Emergency Medicine; ADMIT Family Medicine; ATTEND Family Medicine
DX: A41.9 Sepsis, unspecified organism (principal); N39.0 Urinary tract infection, site not specified; E11.9 Type 2 diabetes mellitus without complications; Z96.643 Presence of artificial hip joint, bilateral; L30.4 Erythema intertrigo; E03.9 Hypothyroidism, unspecified; G40.909 Epilepsy, unspecified, not intractable, without status epilepticus; F03.90 Unspecified dementia, unspecified severity, without behavioral disturbance, psychotic disturbance, mood disturbance, and anxiety; B37.2 Candidiasis of skin and nail; E87.6 Hypokalemia; E83.42 Hypomagnesemia; Z90.89 Acquired absence of other organs; Z91.030 Bee allergy status; Z98.890 Other specified postprocedural states; Z88.5 Allergy status to narcotic agent; Z79.899 Other long term (current) drug therapy; Z79.890 Hormone replacement therapy; Z79.84 Long term (current) use of oral hypoglycemic drugs; Z90.49 Acquired absence of other specified parts of digestive tract
CPT/HCPCS: 36415; 51702; 70450; 71045; 71260; 72125; 74177; 80053; 81001; 82550; 83605; 83735; 84100; 84443; 85025; 86850; 86900; 86901; 87088; 93005; 93010; 96361; 96365; 97161; 97166; 97530; 97535; 99285-25; A4311; A9270; G0480; J0696; J1650; J1815; J3475; J3480; J3490; J7030; J7060; J7121; Q9967